=== PATIENT | male | born 1940 | race American Indian/Alaskan Native ===

== ENCOUNTER 2018-09-10 06:43 | Emergency (ER) | payer MEDICARE ==
[2018-09-10] MEDS ORDERED: NORCO 5/325 PO ONE (08:09)
--- NOTE | 2018-09-10 08:09 | Emergency Department Report ---
ED General Adult HPI - General Chief complaint: Pain General Stated complaint: GENERAL PAIN Time Seen by Provider: 09/10/18 07:44 Source: patient, EMS Mode of arrival: Stretcher Limitations: Physical Limitation - History of Present Illness Initial comments: This is an 78-year-old man who is currently living in assisted living. He is nonambulatory. 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 He is not currently on anticoagulants. He does take sodium bicarbonate does not refer a history of renal failure. He is on medicine for hypertension and hyperlipidemia. He does not have a primary care doctor. He states he's received his medicines from the [facility] system chronically. He also states he's been previously in hospice but has discontinued that so he can get physical therapy. The reason the patient has come to the emergency department is he states "when it rains his arthritis flares up". He complains of diffuse aching involving his neck and upper and lower extremity joints. He states he used to play ball on concrete in [place] and that cause chronic arthritis. Other than aspirin it does not appear that he is taking any chronic arthritis medication currently. He has had symptoms for the last several days and they are typical and recurrent in nature. -: Gradual, year(s) Location: neck, upper extremity, lower extremity Radiation: non-radiation Quality: aching Consistency: intermittent Improves with: none Worsens with: other ("the rain coming") Associated Symptoms: denies other symptoms Treatments Prior to Arrival: none - Related Data Allergies Allergy/AdvReac Type Severity Reaction Status Date / Time No Known Allergies Allergy Unverified 09/10/18 06:49 ED Review of Systems ROS: Stated complaint: GENERAL PAIN Other details as noted in HPI Constitutional: denies: chills, fever Eyes: denies: eye pain, eye discharge, vision change ENT: denies: ear pain, throat pain Respiratory: denies: cough, shortness of breath, wheezing Cardiovascular: denies: chest pain, palpitations Endocrine: no symptoms reported Gastrointestinal: denies: abdominal pain, nausea, diarrhea Genitourinary: denies: urgency, dysuria Musculoskeletal: as per HPI, arthralgia, other (chronic leg swelling). denies: back pain, joint swelling Skin: denies: rash, lesions Neurological: denies: headache, weakness, paresthesias Psychiatric: denies: anxiety, depression Hematological/Lymphatic: denies: easy bleeding, easy bruising ED Past Medical Hx - Past Medical History Previous Medical History?: Yes Hx CVA: Yes Hx Arthritis: Yes - Surgical History Past Surgical History?: Yes Additional Surgical History: spinal fusion c1-c4 - Social History Smoking Status: Never Smoker Substance Use Type: None ED Physical Exam - General Limitations: Physical Limitation General appearance: obese - Head Head exam: Present: atraumatic, normocephalic - Eye Eye exam: Present: normal appearance. Absent: scleral icterus - ENT ENT exam: Present: mucous membranes moist - Neck Neck exam: Present: normal inspection. Absent: tenderness (no vertebral tenderness), meningismus - Respiratory Respiratory exam: Present: normal lung sounds bilaterally. Absent: respiratory distress - Cardiovascular Cardiovascular Exam: Present: regular rate, normal rhythm. Absent: systolic murmur, diastolic murmur, rubs, gallop - GI/Abdominal GI/Abdominal exam: Present: soft, normal bowel sounds. Absent: distended, tenderness, guarding, rebound, rigid - Rectal Rectal exam: Present: deferred - Extremities Exam Extremities exam: Present: other (both lower extremities are edematous.). Absent: full ROM (limited), calf tenderness (no richard calf tenderness) - Back Exam Back exam: Present: normal inspection - Neurological Exam Neurological exam: Present: alert, oriented X3, CN II-XII intact (nothing gross noted), motor sensory deficit, other (functional paraparesis) - Psychiatric Psychiatric exam: Present: normal affect, normal mood - Skin Skin exam: Present: warm, dry, intact, normal color. Absent: rash ED Course Vital Signs 09/10/18 09/10/18 09/10/18 07:03 07:15 07:30 Blood Pressure 169/90 169/90 163/86 O2 Sat by Pulse 97 97 94 Oximetry - Reevaluation(s) Reevaluation #1: She now confirms to me that he has and told in the past that he has chronic kidney disease. He states he feels better. He is appropriate for outpatient management. He will be given a gram of ceftriaxone now and electrolytes. He has been told to follow-up on his urine culture. He is referred to a php mysql web developer stallion manager as well as the master fire control technician. He will be given return criteria. The patient is already on chronic by car. Therefore I believe this is the case that he has chronic kidney disease. 09/10/18 10:46 09/10/18 10:51 ED Medical Decision Making - Lab Data Result diagrams: 09/10/18 08:08 09/10/18 08:08 Laboratory Results - last 24 hr 09/10/18 09/10/18 09/10/18 08:08 08:08 08:08 WBC 6.9 RBC 3.73 Hgb 11.7 L Hct 35.6 MCV 96 H MCH 32 MCHC 33 RDW 16.6 H Plt Count 266 Lymph % (Auto) 28.4 [place] % (Auto) 11.3 H Eos % (Auto) 3.1 Baso % (Auto) 1.0 Lymph # 2.0 [place] # 0.8 Eos # 0.2 Baso # 0.1 Seg Neutrophils % 56.2 Seg Neutrophils # 3.9 PT 14.9 INR 1.10 APTT 40.6 H Sodium 144 Potassium 3.1 L Chloride 102.8 Carbon Dioxide 25 Anion Gap 19 BUN 27 H Creatinine 2.2 H Estimated GFR 35 BUN/Creatinine Ratio 12 Glucose 125 H Calcium 9.0 Phosphorus 3.40 Magnesium 1.50 L Total Bilirubin Direct Bilirubin Indirect Bilirubin AST ALT Alkaline Phosphatase NT-Pro-B Natriuret Pep Total Protein Albumin Albumin/Globulin Ratio Urine Color Urine Turbidity Urine pH Ur Specific [place] Urine Protein Urine Glucose (UA) Urine Ketones Urine Blood Urine Nitrite Urine Bilirubin Urine Urobilinogen Ur Leukocyte Esterase Urine WBC (Auto) Urine RBC (Auto) U Epithel Cells (Auto) Urine Bacteria (Auto) Urine Mucus 09/10/18 09/10/18 08:08 09:02 WBC RBC Hgb Hct MCV MCH MCHC RDW Plt Count Lymph % (Auto) [place] % (Auto) Eos % (Auto) Baso % (Auto) Lymph # [place] # Eos # Baso # Seg Neutrophils % Seg Neutrophils # PT INR APTT Sodium Potassium Chloride Carbon Dioxide Anion Gap BUN Creatinine Estimated GFR BUN/Creatinine Ratio Glucose Calcium Phosphorus Magnesium 1.50 L Total Bilirubin 0.50 Direct Bilirubin < 0.2 Indirect Bilirubin 0.3 AST 17 ALT 18 Alkaline Phosphatase 98 NT-Pro-B Natriuret Pep 786.0 Total Protein 7.0 Albumin 2.9 L Albumin/Globulin Ratio 0.7 Urine Color Yellow Urine Turbidity Clear Urine pH 5.0 Ur Specific [place] 1.010 Urine Protein <15 mg/dl Urine Glucose (UA) Neg Urine Ketones Neg Urine Blood Sm Urine Nitrite Pos Urine Bilirubin Neg Urine Urobilinogen < 2.0 Ur Leukocyte Esterase Mod Urine WBC (Auto) 47.0 H Urine RBC (Auto) 3.0 U Epithel Cells (Auto) < 1.0 Urine Bacteria (Auto) 2+ Urine Mucus Few Critical care attestation.: If time is entered above; I have spent that time in minutes in the direct care of this critically ill patient, excluding procedure time. ED Disposition Clinical Impression: Hypokalemia, Hypomagnesemia UTI (urinary tract infection) Qualifiers: Urinary tract infection type: site unspecified Hematuria presence: without hematuria Qualified Code(s): N39.0 - Urinary tract infection, site not specified Chronic kidney disease Qualifiers: Chronic kidney disease stage: stage 3 (moderate) Qualified Code(s): N18.3 - Chronic kidney disease, stage 3 (moderate) Arthralgia Qualifiers: Joint pain location: unspecified Qualified Code(s): M25.50 - Pain in unspecified joint Disposition: DC- TO HOME OR SELFCARE Is pt being admited?: No Does the pt Need Aspirin: No Condition: Stable Instructions: Urinary Tract Infection in Men (ED), Chronic Kidney Disease (ED), Arthralgia (ED) Additional Instructions: Patient requires follow-up on his urine culture test within the next 2-3 days. He requires follow-up on his chronic kidney disease with the php mysql web developer Dr. andersen. He requires primary care follow-up. His potassium and magnesium level were somewhat low. They will require recheck. He should return to the emergency department should he have any fever or chills. His temperature should be monitored. He is given a prescription for an antibiotic and something for pain as needed. Referrals: KERRI HANKS MD [Primary Care Provider] - 3-5 Days JAJA MARSH MD [Staff Physician] - 2-3 Days SAMREEN MANDEL DO [Staff Physician] - 2-3 Days
[2018-09-10 08:20] LABS: Basophils # (Auto) 0.1 K/mm3 (0.0-0.1); Eosinophils # (Auto) 0.2 K/mm3 (0.0-0.4); Eosinophils % (Auto) 3.1 % (0.0-4.3); Hematocrit 35.6 % (35.5-45.6); Hemoglobin 11.7 gm/dl (11.8-15.2); Lymphocytes % (Auto) 28.4 % (13.4-35.0); Mean Corpuscular HGB Conc 33 % (32-34); Mean Corpuscular Volume 96 fl (84-94); Monocytes # (Auto) 0.8 K/mm3 (0.0-0.8); Monocytes % (Auto) 11.3 % (0.0-7.3); Platelet Count 266 K/mm3 (140-440); Red Blood Count 3.73 M/mm3 (3.65-5.03); Red Cell Distribution Width 16.6 % (13.2-15.2)
[2018-09-10 08:48] LABS: Alanine Aminotransferase 18 units/L (7-56); Albumin 2.9 g/dL (3.9-5)
[2018-09-10 08:55] LABS: Bilirubin,Direct < 0.2 mg/dL (0-0.2)
[2018-09-10 09:08] LABS: INR 1.1 (0.87-1.13); Partial Thromboplastin Time 40.6 Sec. (24.2-36.6)
[2018-09-10 09:25] LABS: Bacteria,Urine 2+ /HPF (Negative); Bilirubin,Urine NEG (Negative); Blood,Urine SM (Negative); Color,Urine Yellow (Yellow); Mucus,Urine FEW /HPF; Protein,Urine <15 mg/dL mg/dL (Negative); Urobilinogen,Urine < 2.0 mg/dL (<2.0)
[2018-09-10] MEDS ORDERED: ROCEPHIN/NS 1 GM/50 ML 1 GM/50 ML BAG IV ONE (10:35)
[2018-09-10] MEDS ORDERED: K-DUR PO ONE (10:36)
[2018-09-10] MEDS ORDERED: XYLOCAINE 1% MPF 5 mL INFILTRATI ONE (11:05)
[2018-09-10] MEDS ORDERED: ROCEPHIN IM ONE (11:05)
--- NOTE | 2018-09-10 11:18 | Vascular Lab Report ---
PROCEDURE: VL VENOUS DUPLEX LE BILAT TECHNIQUE: Duplex Doppler ultrasound examination of the venous system of the right leg and left leg HISTORY: leg pain h/o prior DVT COMPARISONS: None FINDINGS: RIGHT LEG: Normal compressibility, vascular patency, and augmentation are present diffusely throughout the visua lized portion of the deep veins. No abnormal intraluminal echoes are visualized to suggest deep vein thrombus. IMPRESSION: No ultrasound evidence of DVT in the right leg LEFT LEG: Normal compressibility, vascular patency, and augmentation are present diffusely throughout the visua lized portion of the deep veins. No abnormal intraluminal echoes are visualized to suggest deep vein thrombus. IMPRESSION: No ultrasound evidence of DVT in the left leg This document is electronically signed by Jose Antonio Garcia MD., September 10 2018 11:15:49 AM ET
[2018-09-10] MEDS ORDERED: XYLOCAINE 2% INFILTRATI ONE (11:36)
[2018-09-10] MEDS: MAG-OX PO SCH ×2 (11:57→13:14)
[2018-09-10 13:48] VITALS: BP 170/79
[2018-09-11] MEDS ORDERED: MAG-OX PO ONE (10:37)
== END 2018-09-10 13:59 | disposition home or self-care (01) ==
LOC: ED 06:43
DX: I12.9 Hypertensive chronic kidney disease with stage 1 through stage 4 chronic kidney disease, or unspecified chronic kidney disease (principal); N18.3 Chronic kidney disease, stage 3 (moderate); N39.0 Urinary tract infection, site not specified; E87.6 Hypokalemia; E83.42 Hypomagnesemia; M54.2 Cervicalgia; M79.10 Myalgia, unspecified site; E78.5 Hyperlipidemia, unspecified; M79.661 Pain in right lower leg; M79.662 Pain in left lower leg; Z86.718 Personal history of other venous thrombosis and embolism
CPT/HCPCS: 36415; 80048; 80076; 81001; 83735; 83880; 84100; 85025; 85610; 85730; 87076; 87086; 87186; 93970; 96372; 99285; J0696

== ENCOUNTER 2019-01-21 11:04 | Emergency (ER) | payer MEDICARE ==
[2019-01-21] MEDS ORDERED: ULTRAM PO ONE (11:35)
[2019-01-21 11:52] LABS: Basophils # (Auto) 0.1 K/mm3 (0.0-0.1); Basophils % (Auto) 1.1 % (0.0-1.8); Eosinophils # (Auto) 0.2 K/mm3 (0.0-0.4); Eosinophils % (Auto) 3.7 % (0.0-4.3); Hematocrit 35.2 % (35.5-45.6); Hemoglobin 11.3 gm/dl (11.8-15.2); Lymphocytes # (Auto) 2.4 K/mm3 (1.2-5.4); Lymphocytes % (Auto) 37.3 % (13.4-35.0); Mean Corpuscular HGB Conc 32 % (32-34); Mean Corpuscular Volume 93 fl (84-94); Monocytes # (Auto) 0.7 K/mm3 (0.0-0.8); Monocytes % (Auto) 10.2 % (0.0-7.3); Platelet Count 404 K/mm3 (140-440); Red Blood Count 3.77 M/mm3 (3.65-5.03); Red Cell Distribution Width 15.8 % (13.2-15.2)
--- NOTE | 2019-01-21 13:46 | Emergency Department Report ---
ED General Adult HPI - General Chief complaint: Pain General Stated complaint: SAYDA Time Seen by Provider: 01/21/19 11:26 Source: patient, EMS Mode of arrival: Stretcher Limitations: Physical Limitation - History of Present Illness Initial comments: Mr. Haq is an 78 yo male with hx of HTN, cervical injury s/p surgery, CKD, who presents with generalized body aches. "I don't feel well." Has "arthritis". I reviewed and are medication record. Prescriptions include gabapentin however it appears to morphine Percocet were recently discontinued as well as Ativan tramadol acetaminophen. PCP Dr. Watson -: Gradual Location: left, right, upper extremity, lower extremity Severity scale (0 -10): 3 Quality: aching Consistency: constant Improves with: none Worsens with: none Associated Symptoms: denies other symptoms, malaise - Related Data Home Medications Medication Instructions Recorded Confirmed Last Taken Baclofen [Lioresal] 10 mg PO BID 04/02/13 02/26/17 04/02/13 Previous Rx's Medication Instructions Recorded Last Taken Type Acetaminophen [Acetaminophen TAB] 650 mg PO Q4H PRN #1 tablet 02/28/17 Unknown Rx Aspirin [Aspirin BABY CHEW TAB] 81 mg PO DAILY #1 tab.chew 02/28/17 Unknown Rx DAPTOmycin 246 mg IV Q24H #1 vial 02/28/17 Unknown Rx Ferrous Sulfate [Feosol 325 MG tab] 325 mg PO QDAY #1 tablet 02/28/17 Unknown Rx Gabapentin [Neurontin] 300 mg PO Q8HR #1 capsule 02/28/17 Unknown Rx Ondansetron [Zofran INJ] 4 mg IV Q8H PRN #1 vial 02/28/17 Unknown Rx Znfrjmnphdvx-Yqfi-Xskojeqw,Iso 2.25 gm IV Q6HR #10 froz.piggy 02/28/17 Unknown Rx [Zosyn 2.25 gm/50 ml Galaxy Bag] Sodium Hypochlorite [Dakin's Half 1 applic TP Q12H PRN #1 bottle 02/28/17 Unknown Rx Strength] amLODIPine [Norvasc] 10 mg PO DAILY #1 tablet 02/28/17 Unknown Rx cefUROXime [Ceftin] 250 mg PO Q12H #20 tablet 09/10/18 Unknown Rx traMADol [Ultram] 50 mg PO Q6HR PRN #10 tablet 09/10/18 Unknown Rx Allergies Allergy/AdvReac Type Severity Reaction Status Date / Time diclofenac [Diclofenac] Allergy Rash Verified 10/05/18 08:11 ED Review of Systems ROS: Stated complaint: SAYDA Other details as noted in HPI Comment: All other systems reviewed and negative Constitutional: malaise. denies: fever Gastrointestinal: denies: abdominal pain, nausea, vomiting ED Past Medical Hx - Past Medical History Previous Medical History?: Yes Hx Hypertension: Yes Hx CVA: Yes Hx Diabetes: Yes Hx Renal Disease: Yes (chronic kidney disease) Hx Arthritis: Yes Additional medical history: spinal disorder - Surgical History Additional Surgical History: spinal fusion c1-c4 - Social History Smoking Status: Unknown if ever smoked Substance Use Type: None - Medications Home Medications: Home Medications Medication Instructions Recorded Confirmed Last Taken Type Baclofen [Lioresal] 10 mg PO BID 04/02/13 02/26/17 04/02/13 History Acetaminophen [Acetaminophen TAB] 650 mg PO Q4H PRN #1 tablet 02/28/17 Unknown Rx Aspirin [Aspirin BABY CHEW TAB] 81 mg PO DAILY #1 tab.chew 02/28/17 Unknown Rx DAPTOmycin 246 mg IV Q24H #1 vial 02/28/17 Unknown Rx Ferrous Sulfate [Feosol 325 MG tab] 325 mg PO QDAY #1 tablet 02/28/17 Unknown Rx Gabapentin [Neurontin] 300 mg PO Q8HR #1 capsule 02/28/17 Unknown Rx Ondansetron [Zofran INJ] 4 mg IV Q8H PRN #1 vial 02/28/17 Unknown Rx Eurrwluaawoy-Pjlr-Xioijcfp,Iso 2.25 gm IV Q6HR #10 froz.piggy 02/28/17 Unknown Rx [Zosyn 2.25 gm/50 ml Galaxy Bag] Sodium Hypochlorite [Dakin's Half 1 applic TP Q12H PRN #1 bottle 02/28/17 Unknown Rx Strength] amLODIPine [Norvasc] 10 mg PO DAILY #1 tablet 02/28/17 Unknown Rx cefUROXime [Ceftin] 250 mg PO Q12H #20 tablet 09/10/18 Unknown Rx traMADol [Ultram] 50 mg PO Q6HR PRN #10 tablet 09/10/18 Unknown Rx ED Physical Exam - General Limitations: Physical Limitation General appearance: alert, in no apparent distress - Head Head exam: Present: atraumatic, normocephalic - Eye Eye exam: Present: normal appearance - ENT ENT exam: Present: mucous membranes moist - Neck Neck exam: Present: normal inspection - Respiratory Respiratory exam: Present: normal lung sounds bilaterally. Absent: respiratory distress, wheezes, rhonchi - Cardiovascular Cardiovascular Exam: Present: regular rate, normal rhythm, normal heart sounds. Absent: systolic murmur, diastolic murmur, rubs, gallop - GI/Abdominal GI/Abdominal exam: Present: soft, normal bowel sounds. Absent: distended, tenderness, guarding, rebound - Rectal Rectal exam: Present: deferred - Neurological Exam Neurological exam: Present: alert, oriented X3 - Psychiatric Psychiatric exam: Present: normal mood, flat affect - Skin Skin exam: Present: warm, dry, intact, normal color. Absent: rash ED Course Vital Signs 01/21/19 01/21/19 01/21/19 11:19 11:21 12:52 Temperature 98.0 F Pulse Rate 70 69 Respiratory 18 18 18 Rate Blood Pressure 156/69 Blood Pressure 142/72 [Left] O2 Sat by Pulse 96 92 Oximetry ED Medical Decision Making - Lab Data Result diagrams: 01/21/19 11:37 01/21/19 11:37 - Medical Decision Making Mr. Self presents with generalized pain. According to the medication list he has been on extensive list of medications which would address pain such as morphine tramadol Tylenol Percocet. He will need long-term pain management. I encouraged close follow-up with his primary care physician. Labs reviewed included hypochloremia hypokalemia CKD. I have encouraged increased potassium dose from 20 mEq to 40 meq daily while on diuretic therapy. Critical care attestation.: If time is entered above; I have spent that time in minutes in the direct care of this critically ill patient, excluding procedure time. ED Disposition Clinical Impression: Generalized pain, Hypokalemia Disposition: -01 TO HOME OR SELFCARE Is pt being admited?: No Does the pt Need Aspirin: No Condition: Stable Additional Instructions: Please contact primary care for pain treatment options. Your potassium level is lower than expected, we have increased your daily potassium dose. Referrals: PRIMARY CARE, [Primary Care Provider] - 3-5 Days
[2019-01-21] MEDS ORDERED: K-DUR PO ONE (13:50)
[2019-01-21 14:00] VITALS: BP 136/63
== END 2019-01-21 16:03 | disposition home or self-care (01) ==
LOC: ED 11:04
DX: M79.18 Myalgia, other site (principal); E87.6 Hypokalemia; M19.90 Unspecified osteoarthritis, unspecified site; E11.22 Type 2 diabetes mellitus with diabetic chronic kidney disease; I12.9 Hypertensive chronic kidney disease with stage 1 through stage 4 chronic kidney disease, or unspecified chronic kidney disease; N18.9 Chronic kidney disease, unspecified
CPT/HCPCS: 36415; 80048; 85025

== ENCOUNTER 2020-03-02 01:08 | Inpatient (IN) | payer MEDICARE ==
[2020-03-02] MEDS ORDERED: ACETAMINOPHEN 500 MG TAB PO ONE (01:29)
--- NOTE | 2020-03-02 01:30 | Emergency Department Report ---
ED General Adult HPI - General Chief complaint: Weakness Stated complaint: BODYACHE/SEPSIS PUI?: Yes Time Seen by Provider: 03/02/20 01:14 Source: patient, EMS (Verbal report received from emergency medical services), RN notes reviewed, old records reviewed Mode of arrival: Stretcher Limitations: Physical Limitation, Other (Patient is a poor historian) - History of Present Illness Initial comments: The patient was evaluated in the emergency department for symptoms described in the history of present illness. He/she was evaluated in the context of the global COVID-19 pandemic, which necessitated consideration that the patient might be at risk for infection with the virus that causes COVID-19. Institutional protocols and algorithms that pertain to the evaluation of patients at risk for COVID-19 are in a state of rapid change based on information released by regulatory bodies including the CDC and federal and state organizations. These policies and algorithms were followed during the patient's care in the emergency department. Please note that these policies, procedures and recommendations changed on a rapid basis. During the entire history and physical examination, I had on complete personal protective equipment. The patient is an 79-year-old gentleman. He is brought to the hospital by EMS from a local fpc, with a complaint of fever, weakness, body aches, change in behavior. Patient himself is awake and follows commands. The patient states he has body pain. The patient indicates he is not having headache, neck pain, chest pain or abdominal pain. The patient is a poor historian, and has difficulty describing the qualitative nature of his symptoms, exacerbating factors, or relieving factors. As per collateral history from EMS, patient febrile in the field, and borderline hypoxic. EMS reports otherwise unremarkable vital signs. Patient is not accompanied by friends or family or caretakers at this time for additional information or collateral information. His primary care doctors on the following: Dr. Rita Watson, Dr Virginia Soria ( [facility]) Past medical history includes obesity, hypertension, chronic lymphedema, elephantiasis, history of hypertension, bradycardia, hypernatremia, hyperchloremia, and renal insufficiency. -: unknown Radiation: other Quality: other Consistency: other Improves with: other Worsens with: other - Related Data Home Medications Medication Instructions Recorded Confirmed Last Taken Baclofen [Lioresal] 10 mg PO BID 04/02/13 02/26/17 04/02/13 Previous Rx's Medication Instructions Recorded Last Taken Type Acetaminophen [Acetaminophen TAB] 650 mg PO Q4H PRN #1 tablet 02/28/17 Unknown Rx Aspirin [Aspirin BABY CHEW TAB] 81 mg PO DAILY #1 tab.chew 02/28/17 Unknown Rx DAPTOmycin 246 mg IV Q24H #1 vial 02/28/17 Unknown Rx Ferrous Sulfate [Feosol 325 MG tab] 325 mg PO QDAY #1 tablet 02/28/17 Unknown Rx Gabapentin 300 mg PO Q8HR #1 capsule 02/28/17 Unknown Rx Ondansetron [Zofran INJ] 4 mg IV Q8H PRN #1 vial 02/28/17 Unknown Rx Phijiczpvmhe-Urfe-Fbbnukgr,Iso 2.25 gm IV Q6HR #10 froz.piggy 02/28/17 Unknown Rx [Zosyn 2.25 gm/50 ml Galaxy Bag] Sodium Hypochlorite [Dakin's Half 1 applic TP Q12H PRN #1 bottle 02/28/17 Unknown Rx Strength] amLODIPine 10 mg PO DAILY #1 tablet 02/28/17 Unknown Rx cefUROXime [Ceftin] 250 mg PO Q12H #20 tablet 09/10/18 Unknown Rx traMADoL [Ultram] 50 mg PO Q6HR PRN #10 tablet 09/10/18 Unknown Rx Potassium Chloride [K-Dur] 2 tab PO QDAY 30 Days #60 tablet 01/21/19 Unknown Rx Allergies Allergy/AdvReac Type Severity Reaction Status Date / Time diclofenac [Diclofenac] Allergy Rash Verified 10/05/18 08:11 ED Review of Systems ROS: Stated complaint: BODYACHE/SEPSIS Other details as noted in HPI Comment: Unobtainable due to pts medical conditions Constitutional: malaise Musculoskeletal: arthralgia, myalgia Neurological: weakness, confusion ED Past Medical Hx - Past Medical History Hx Hypertension: Yes Hx CVA: Yes Hx Diabetes: Yes Hx Renal Disease: Yes (chronic kidney disease) Hx Arthritis: Yes Additional medical history: spinal disorder - Surgical History Additional Surgical History: spinal fusion c1-c4 - Social History Smoking Status: Unknown if ever smoked Substance Use Type: None - Medications Home Medications: Home Medications Medication Instructions Recorded Confirmed Last Taken Type Baclofen [Lioresal] 10 mg PO BID 04/02/13 02/26/17 04/02/13 History Acetaminophen [Acetaminophen TAB] 650 mg PO Q4H PRN #1 tablet 02/28/17 Unknown Rx Aspirin [Aspirin BABY CHEW TAB] 81 mg PO DAILY #1 tab.chew 02/28/17 Unknown Rx DAPTOmycin 246 mg IV Q24H #1 vial 02/28/17 Unknown Rx Ferrous Sulfate [Feosol 325 MG tab] 325 mg PO QDAY #1 tablet 02/28/17 Unknown Rx Gabapentin 300 mg PO Q8HR #1 capsule 02/28/17 Unknown Rx Ondansetron [Zofran INJ] 4 mg IV Q8H PRN #1 vial 02/28/17 Unknown Rx Dikldpvhhsgw-Dowv-Rgkjtmvt,Iso 2.25 gm IV Q6HR #10 froz.piggy 02/28/17 Unknown Rx [Zosyn 2.25 gm/50 ml Galaxy Bag] Sodium Hypochlorite [Dakin's Half 1 applic TP Q12H PRN #1 bottle 02/28/17 Unknown Rx Strength] amLODIPine 10 mg PO DAILY #1 tablet 02/28/17 Unknown Rx cefUROXime [Ceftin] 250 mg PO Q12H #20 tablet 09/10/18 Unknown Rx traMADoL [Ultram] 50 mg PO Q6HR PRN #10 tablet 09/10/18 Unknown Rx Potassium Chloride [K-Dur] 2 tab PO QDAY 30 Days #60 tablet 01/21/19 Unknown Rx ED Physical Exam - General Limitations: Altered Mental Status, Physical Limitation General appearance: in no apparent distress, anxious, obese - Head Head exam: Present: atraumatic, normocephalic - Eye Eye exam: Present: normal appearance, EOMI - ENT ENT exam: Present: normal exam, normal orophraynx, mucous membranes moist, normal external ear exam - Neck Neck exam: Present: normal inspection, full ROM. Absent: tenderness, meningismus - Respiratory Respiratory exam: Present: decreased breath sounds. Absent: respiratory distress, wheezes, rales, rhonchi, stridor - Cardiovascular Cardiovascular Exam: Present: normal rhythm, tachycardia, systolic murmur (2 out of 6 systolic murmur, heard best at the right and left second intercostal spaces). Absent: bradycardia, irregular rhythm, diastolic murmur, rubs, gallop - GI/Abdominal GI/Abdominal exam: Present: soft. Absent: distended, tenderness, guarding, rebound, rigid, pulsatile mass - Rectal Rectal exam: Present: normal inspection (Stage I sacral ulcer/skin breakdown noted.) - Extremities Exam Extremities exam: Present: normal inspection, full ROM, pedal edema (2 to 3+ edema noted in the bilateral lower extremities), other (2+ pulses noted in the bilateral upper and lower extremities. There is no palpable cord. negative Homans sign. Muscular compartments are soft. The pelvis is stable.) - Back Exam Back exam: Present: normal inspection. Absent: tenderness, CVA tenderness (R), CVA tenderness (L), paraspinal tenderness, vertebral tenderness - Neurological Exam Neurological exam: Present: altered (The patient is awake to name. The patient follows commands. There are no meningeal signs.), other (No facial droop. Tongue midline. Extraocular movements intact bilaterally. Facial sensation intact to light touch in V1, V2, V3 distribution bilaterally. 5 and a 5 strength in 4 extremities. Sensation intact to light touch in 4 extremities.) - Psychiatric Psychiatric exam: Present: agitated - Skin Skin exam: Present: warm, dry, intact, normal color. Absent: rash ED Course Vital Signs 03/02/20 03/02/20 03/02/20 01:28 02:01 02:15 Temperature 102.5 F H Pulse Rate 116 H 107 H 99 H Respiratory 17 22 18 Rate Blood Pressure Blood Pressure 189/97 [Right] O2 Sat by Pulse 97 97 97 Oximetry 03/02/20 03/02/20 03/02/20 02:31 02:42 02:45 Temperature Pulse Rate 96 H 102 H 95 H Respiratory 23 19 17 Rate Blood Pressure 148/85 Blood Pressure 148/85 [Right] O2 Sat by Pulse 99 98 100 Oximetry 03/02/20 03/02/20 03/02/20 03:00 03:15 03:30 Temperature Pulse Rate 99 H 86 84 Respiratory 15 13 16 Rate Blood Pressure 140/86 140/86 145/71 Blood Pressure [Right] O2 Sat by Pulse 99 100 100 Oximetry 03/02/20 03/02/20 03:41 03:45 Temperature Pulse Rate 94 H 88 Respiratory 22 Rate Blood Pressure 145/71 Blood Pressure [Right] O2 Sat by Pulse 98 Oximetry - Reevaluation(s) Reevaluation #1: 03/02/20 02:27 Differential diagnosis, including but not limited to: Bacteremia, viremia, pneumonia, COVID-19 Urinary tract infection Acute febrile delirium Assessment and plan: 79-year-old gentleman with fever, tachycardia, body aches, who is awake, follows commands, without meningeal signs, patient we resuscitated empirically according to the sepsis pathway, he will be given IV fluids, dosed at 30 cc/kg of ideal body weight, ceftriaxone ordered empirically, appropriate laboratory studies ordered, urinalysis pending at this time, he will be placed on isolation precautions to rule out COVID-19. He will require admission to the medical service once his initial diagnostics have resulted. 03/02/20 03:19 Laboratory studies are reviewed and appreciated. We will replete hypokalemia and hypomagnesemia. Patient ruling in for Sirs/sepsis, manifested by fever, tachycardia, leukocytosis. Urinalysis pending at this time. Dr Darrin Rosales to admit ED Medical Decision Making - Lab Data Result diagrams: 03/02/20 01:52 03/02/20 01:52 Vital Signs 03/02/20 01:28 Temperature 102.5 F H Pulse Rate 116 H Respiratory 20 Rate Blood Pressure 189/97 [Right] O2 Sat by Pulse 97 Oximetry Lab Results 03/02/20 03/02/20 03/02/20 Range/Units 01:52 01:52 01:52 WBC 14.4 H (4.5-11.0) K/mm3 RBC 3.53 L (3.65-5.03) M/mm3 Hgb 10.7 L (11.8-15.2) gm/dl Hct 33.6 L (35.5-45.6) % MCV 95 H (84-94) fl MCH 30 (28-32) pg MCHC 32 (32-34) % RDW 16.6 H (13.2-15.2) % Plt Count 467 H (140-440) K/mm3 Seg Neutrophils % Health Assessment And Treatment Teacher APTT 34.9 (24.2-36.6) Sec. Sodium 144 (137-145) mmol/L Potassium 2.8 L* (3.6-5.0) mmol/L Chloride 102.6 (98-107) mmol/L Carbon Dioxide 20 L (22-30) mmol/L Anion Gap 24 mmol/L BUN 59 H (9-20) mg/dL Creatinine 2.3 H (0.8-1.3) mg/dL Estimated GFR 33 ml/min BUN/Creatinine Ratio 26 % Glucose 123 H (75-100) mg/dL Lactic Acid (0.7-2.0) mmol/L Calcium 8.8 (8.4-10.2) mg/dL Magnesium (1.7-2.3) mg/dL Total Bilirubin 0.70 (0.1-1.2) mg/dL AST 25 (5-40) units/L ALT 14 (7-56) units/L Alkaline Phosphatase 144 H (35-129) units/L Total Creatine Kinase (55-170) units/L Total Protein 7.2 (6.3-8.2) g/dL Albumin 3.2 L (3.9-5) g/dL Albumin/Globulin Ratio 0.8 % TSH (0.270-4.200) mlU/mL 03/02/20 03/02/20 03/02/20 Range/Units 01:52 01:52 01:52 WBC (4.5-11.0) K/mm3 RBC (3.65-5.03) M/mm3 Hgb (11.8-15.2) gm/dl Hct (35.5-45.6) % MCV (84-94) fl MCH (28-32) pg MCHC (32-34) % RDW (13.2-15.2) % Plt Count (140-440) K/mm3 Seg Neutrophils % APTT (24.2-36.6) Sec. Sodium (137-145) mmol/L Potassium (3.6-5.0) mmol/L Chloride (98-107) mmol/L Carbon Dioxide (22-30) mmol/L Anion Gap mmol/L BUN (9-20) mg/dL Creatinine (0.8-1.3) mg/dL Estimated GFR ml/min BUN/Creatinine Ratio % Glucose 124 H (75-100) mg/dL Lactic Acid 2.70 H* (0.7-2.0) mmol/L Calcium (8.4-10.2) mg/dL Magnesium 1.40 L (1.7-2.3) mg/dL Total Bilirubin (0.1-1.2) mg/dL AST (5-40) units/L ALT (7-56) units/L Alkaline Phosphatase (35-129) units/L Total Creatine Kinase 34 L (55-170) units/L Total Protein (6.3-8.2) g/dL Albumin (3.9-5) g/dL Albumin/Globulin Ratio % TSH (0.270-4.200) mlU/mL 03/02/20 Range/Units 01:52 WBC (4.5-11.0) K/mm3 RBC (3.65-5.03) M/mm3 Hgb (11.8-15.2) gm/dl Hct (35.5-45.6) % MCV (84-94) fl MCH (28-32) pg MCHC (32-34) % RDW (13.2-15.2) % Plt Count (140-440) K/mm3 Seg Neutrophils % APTT (24.2-36.6) Sec. Sodium (137-145) mmol/L Potassium (3.6-5.0) mmol/L Chloride (98-107) mmol/L Carbon Dioxide (22-30) mmol/L Anion Gap mmol/L BUN (9-20) mg/dL Creatinine (0.8-1.3) mg/dL Estimated GFR ml/min BUN/Creatinine Ratio % Glucose (75-100) mg/dL Lactic Acid (0.7-2.0) mmol/L Calcium (8.4-10.2) mg/dL Magnesium (1.7-2.3) mg/dL Total Bilirubin (0.1-1.2) mg/dL AST (5-40) units/L ALT (7-56) units/L Alkaline Phosphatase (35-129) units/L Total Creatine Kinase (55-170) units/L Total Protein (6.3-8.2) g/dL Albumin (3.9-5) g/dL Albumin/Globulin Ratio % TSH 0.885 (0.270-4.200) mlU/mL - EKG Data -: EKG Interpreted by Md EKG shows normal: sinus rhythm - EKG Data When compared to previous EKG there are: previous EKG unavailable 03/02/20 03:21 Sinus rhythm, 95 bpm, premature ventricular complex, right bundle branch block, prolonged [place] interval, motion artifact, extreme rightward axis deviation, abnormal EKG, not a STEMI. - Radiology Data Radiology results: report reviewed, image reviewed Print Report Referring Physician: HUONG WHITFIELD Patient Name: URSZULA YUAN Date of : 1940 Sex: Male Report Date: 2020-03-02 Report Status: Finalized Findings [facility] [address] [place] [address] XRay Report Signed Patient: URSZULA YUAN MR#: [id number] : 1940 Acct:[id number] Age/Sex: 79 / M ADM Date: 03/02/20 Loc: ED Attending Dr: Ordering Physician: HUONG WHITFIELD MD Date of Service: 03/02/20 Procedure(s): XR chest 1V ap Accession Number(s): [id number] cc: HUONG WHITFIELD MD Fluoro Time In Minutes: CHEST 1 VIEW INDICATION: fever weakness resp distress. COMPARISON: None. FINDINGS: Support devices: None. Heart: Cardiac silhouette size is accentuated by low lung volumes. Lungs/Pleura: There are low lung volumes with presumed atelectatic changes in the bases. No significant effusion, no pneumothorax. IMPRESSION: 1. No acute findings. Signer Name: Ronan Rouse MD Signed: 03/02/2020 1:58 AM Workstation Name: [id number] Transcribed By: BRAD Dictated By: Ronan Rouse MD Electronically Authenticated By: Ronan Rouse MD Signed Date/Time: 03/02/20157 DD/ 7 TD/TT: Critical Care Time: Yes Critical care time in (mins) excluding proc time.: 35 Critical care attestation.: If time is entered above; I have spent that time in minutes in the direct care of this critically ill patient, excluding procedure time. ED Disposition Clinical Impression: SIRS (systemic inflammatory response syndrome), Suspected 2019 novel coronavirus infection, Renal insufficiency, Hypokalemia, Hypomagnesemia, UTI (urinary tract infection) Disposition: OP ADMIT IP TO THIS HOSP Is pt being admited?: Yes Does the pt Need Aspirin: No Condition: Fair
[2020-03-02] MEDS ORDERED: SODIUM CHLORIDE 0.9% 1000 ML 1,000 ML ONE (01:50)
[2020-03-02] MEDS ORDERED: SODIUM CHLORIDE 0.9% IV ONE (01:52)
[2020-03-02] MEDS ORDERED: cefTRIAXone/NS 2 GM/100 ML 2 GM/100 ML BAG IV SCH (02:00)
--- NOTE | 2020-03-02 02:03 | XRay Report ---
CHEST 1 VIEW INDICATION: fever weakness resp distress. COMPARISON: None. FINDINGS: Support devices: None. Heart: Cardiac silhouette size is accentuated by low lung volumes. Lungs/Pleura: There are low lung volumes with presumed atelectatic changes in the bases. No significa nt effusion, no pneumothorax. IMPRESSION: 1. No acute findings. Signer Name: Ronan Rouse MD Signed: 03/02/2020 1:58 AM Workstation Name: [id number]
[2020-03-02] MEDS ORDERED: cefTRIAXone/NS 2 GM/100 ML 2 GM/100 ML BAG IV ONE (02:35)
[2020-03-02 02:36] LABS: Hematocrit 33.6 % (35.5-45.6); Hemoglobin 10.7 gm/dl (11.8-15.2); Mean Corpuscular HGB Conc 32 % (32-34); Mean Corpuscular Volume 95 fl (84-94); Platelet Count 467 K/mm3 (140-440); Red Blood Count 3.53 M/mm3 (3.65-5.03); Red Cell Distribution Width 16.6 % (13.2-15.2)
[2020-03-02 02:55] LABS: Albumin 3.2 g/dL (3.9-5); Calcium 8.8 mg/dL (8.4-10.2)
[2020-03-02] MEDS ORDERED: POTASSIUM CHLORIDE ER 20 MEQ TAB PO ONE ×3 (03:17→15:00)
[2020-03-02] MEDS ORDERED: MAGNESIUM SULFATE 2 GM/50 ML BAG IV ONE ×2 (03:17→04:26)
[2020-03-02] MEDS ORDERED: MAGNESIUM HYDROXIDE (MOM) ORAL LIQD UDC PO PRN (03:40)
[2020-03-02] MEDS ORDERED: ONDANSETRON 4 MG/2 ML INJ IV PRN (03:40)
[2020-03-02] MEDS ORDERED: DEXTROSE 50% IN WATER (25GM) 50 ML SYRINGE IV PRN (03:40)
[2020-03-02] MEDS ORDERED: MORPHINE 2 MG/1 ML INJ IV PRN (03:40)
[2020-03-02] MEDS ORDERED: ACETAMINOPHEN 325 MG TAB PO PRN (03:40)
--- NOTE | 2020-03-02 03:54 | History and Physical Report ---
History of Present Illness Date of examination: 03/02/20 Date of admission: 03/02/20 03:20 Chief complaint: Weakness Generalized body aches/pain Fever History of present illness: 79-year-old -[place] male with significant past medical history of chronic kidney disease, CVA in the past, diabetes mellitus, hypertension, obesity and chronic lymphedema brought into the emergency room from a local skilled nursing by EMS with complaints of fever, generalized weakness, body aches and pain and confusion. Per EMS patient was said to be hypoxic in the field and also had a fever. Patient is a poor historian however he was able to answer a few questions. He appeared more alert and oriented upon arrival in the emergency room. Work-up in the emergency room however reveals leukocytosis of 14, lactic acidosis, hypomagnesemia and hypokalemia, urinalysis was significant for UTI . Chest x-ray showed low lung volumes with presumed atelectatic changes in the bases. Patient is being admitted for sepsis possibly secondary to the UTI versus underlying pneumonia on chest x-ray. Patient is also to be worked up for possible COVID-19 and therefore placed on isolation precautions. 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,) Past Surgical History: Other (Spinal fusion C1-C4) Social history: no significant social history Family history: no significant family history Medications and Allergies Allergies Allergy/AdvReac Type Severity Reaction Status Date / Time diclofenac [Diclofenac] Allergy Rash Verified 10/05/18 08:11 Home Medications Medication Instructions Recorded Confirmed Last Taken Type Baclofen [Lioresal] 10 mg PO BID 04/02/13 02/26/17 04/02/13 History Acetaminophen [Acetaminophen TAB] 650 mg PO Q4H PRN #1 tablet 02/28/17 Unknown Rx Aspirin [Aspirin BABY CHEW TAB] 81 mg PO DAILY #1 tab.chew 02/28/17 Unknown Rx DAPTOmycin 246 mg IV Q24H #1 vial 02/28/17 Unknown Rx Ferrous Sulfate [Feosol 325 MG tab] 325 mg PO QDAY #1 tablet 02/28/17 Unknown Rx Gabapentin 300 mg PO Q8HR #1 capsule 02/28/17 Unknown Rx Ondansetron [Zofran INJ] 4 mg IV Q8H PRN #1 vial 02/28/17 Unknown Rx Cqhsgkfwllym-Rznl-Evrnvggq,Iso 2.25 gm IV Q6HR #10 froz.piggy 02/28/17 Unknown Rx [Zosyn 2.25 gm/50 ml Galaxy Bag] Sodium Hypochlorite [Dakin's Half 1 applic TP Q12H PRN #1 bottle 02/28/17 Unknown Rx Strength] amLODIPine 10 mg PO DAILY #1 tablet 02/28/17 Unknown Rx cefUROXime [Ceftin] 250 mg PO Q12H #20 tablet 09/10/18 Unknown Rx traMADoL [Ultram] 50 mg PO Q6HR PRN #10 tablet 09/10/18 Unknown Rx Potassium Chloride [K-Dur] 2 tab PO QDAY 30 Days #60 tablet 01/21/19 Unknown Rx Active Meds: Active Medications Acetaminophen (Tylenol) 650 mg PO Q4H PRN PRN Reason: Pain MILD(1-3)/Fever >100.5/HUTCHINS Dextrose (D50w (25gm) Syringe) 50 ml IV Q30MIN PRN; Protocol PRN Reason: Hypoglycemia Sodium Chloride (Nacl 0.9% 1000 Ml) 2,040 mls @ 999 mls/hr IV BOLUS ONE Stop: 03/02/20 03:54 Last Admin: 03/02/20 01:55 Dose: 999 mls/hr Documented by: Potassium Chloride (Kcl 10meq/100ml) 10 meq in 100 mls @ 100 mls/hr IV Q1H IDRIS Stop: 03/02/20 05:59 Insulin Human Lispro (Humalog) 0 unit SUB-Q ACHS IDRIS; Protocol Magnesium Hydroxide (Milk Of Magnesia) 30 ml PO Q4H PRN PRN Reason: Constipation Morphine Sulfate (Morphine) 2 mg IV Q4H PRN PRN Reason: Pain, Moderate (4-6) Ondansetron HCl (Zofran) 4 mg IV Q8H PRN PRN Reason: Nausea And Vomiting Sodium Chloride (Sodium Chloride Flush Syringe 10 Ml) 10 ml IV BID IDRIS Sodium Chloride (Sodium Chloride Flush Syringe 10 Ml) 10 ml IV PRN PRN PRN Reason: LINE FLUSH Review of Systems Constitutional: fever, fatigue, weakness, malaise Ears, nose, mouth and throat: no nasal congestion, no sore throat Cardiovascular: no chest pain, no palpitations Respiratory: no cough, no shortness of breath Gastrointestinal: no abdominal pain, no nausea, no vomiting, no diarrhea Genitourinary Male: no dysuria, no hematuria, no flank pain Musculoskeletal: no neck pain, no low back pain Integumentary: no rash, no pruritis Neurological: confusion, no headaches Psychiatric: no anxiety, no depression Exam - Constitutional Vitals: Temp Pulse Resp BP Pulse Ox 102.5 F H 102 H 19 148/85 98 03/02/20 01:28 03/02/20 02:42 03/02/20 02:42 03/02/20 02:42 03/02/20 02:42 General appearance: Present: no acute distress, well-nourished, obese - EENT Eyes: Present: PERRL, EOM intact. Absent: scleral icterus ENT: hearing intact, clear oral mucosa, dentition normal - Neck Neck: Present: supple, normal ROM - Respiratory Respiratory effort: normal Respiratory: bilateral: diminished - Cardiovascular Rhythm: regular Heart Sounds: Present: S1 & S2. Absent: gallop, systolic murmur, diastolic murmur, rub - Extremities Extremities: no ischemia, pulses intact, pulses symmetrical, Full ROM Extremity abnormal: edema (lymphedema/3+ suly. lower extremity edema) Peripheral Pulses: within normal limits - Abdominal General gastrointestinal: Present: soft, non-tender, non-distended, normal bowel sounds. Absent: mass - Integumentary Integumentary: Present: clear, warm, dry. Absent: rash - Musculoskeletal Musculoskeletal: strength equal bilaterally - Psychiatric Psychiatric: appropriate mood/affect, intact judgment & insight, memory intact, cooperative - Neurologic Neurologic: CNII-XII intact, no focal deficits, moves all extremities Results - Labs CBC & Chem 7: 03/02/20 01:52 03/02/20 01:52 Labs: Abnormal lab results 03/02/20 03/02/20 03/02/20 Range/Units 01:52 01:52 01:52 WBC 14.4 H (4.5-11.0) K/mm3 RBC 3.53 L (3.65-5.03) M/mm3 Hgb 10.7 L (11.8-15.2) gm/dl Hct 33.6 L (35.5-45.6) % MCV 95 H (84-94) fl RDW 16.6 H (13.2-15.2) % Plt Count 467 H (140-440) K/mm3 Potassium 2.8 L* (3.6-5.0) mmol/L Carbon Dioxide 20 L (22-30) mmol/L BUN 59 H (9-20) mg/dL Creatinine 2.3 H (0.8-1.3) mg/dL Glucose 123 H (75-100) mg/dL Lactic Acid 2.70 H* (0.7-2.0) mmol/L Magnesium (1.7-2.3) mg/dL Alkaline Phosphatase 144 H (35-129) units/L Total Creatine Kinase (55-170) units/L Albumin 3.2 L (3.9-5) g/dL 03/02/20 03/02/20 Range/Units 01:52 01:52 WBC (4.5-11.0) K/mm3 RBC (3.65-5.03) M/mm3 Hgb (11.8-15.2) gm/dl Hct (35.5-45.6) % MCV (84-94) fl RDW (13.2-15.2) % Plt Count (140-440) K/mm3 Potassium (3.6-5.0) mmol/L Carbon Dioxide (22-30) mmol/L BUN (9-20) mg/dL Creatinine (0.8-1.3) mg/dL Glucose 124 H (75-100) mg/dL Lactic Acid (0.7-2.0) mmol/L Magnesium 1.40 L (1.7-2.3) mg/dL Alkaline Phosphatase (35-129) units/L Total Creatine Kinase 34 L (55-170) units/L Albumin (3.9-5) g/dL Assessment and Plan - Patient Problems (1) Sepsis Current Visit: Yes Status: Acute Plan to address problem: Possibly secondary to UTI and possibly underlying pneumonia. Patient commenced on empiric IV antibiotics. We will await culture results. (2) Suspected 2019 novel coronavirus infection Current Visit: Yes Status: Acute Plan to address problem: We await COVID-19 testing. Consult has also been placed to infectious disease for evaluation and recommendation. Patient placed on isolation precautions. (3) Hypokalemia Current Visit: Yes Status: Acute Plan to address problem: Will replete potassium and monitor chemistry. (4) Hypomagnesemia Current Visit: Yes Status: Acute Plan to address problem: Will replete magnesium and monitor chemistry. (5) Renal insufficiency Current Visit: Yes Status: Acute Plan to address problem: Patient has known history of chronic kidney disease. We will monitor BUN and creatinine and also request nephrology evaluation prior to discharge. (6) Hypertension Current Visit: No Status: Acute Plan to address problem: We will resume routine home medications and monitor vital signs closely. (7) UTI (urinary tract infection) Current Visit: Yes Status: Acute Plan to address problem: Patient on empiric IV antibiotics. We will await urine culture results. (8) DVT prophylaxis Current Visit: Yes Status: Acute Plan to address problem: Patient placed on subcutaneous heparin. (9) Full code status Current Visit: Yes Status: Acute
[2020-03-02 04:04] LABS: Basophils % (Manual) 0 % (0.0-1.8); Eosinophils % (Manual) 0 % (0.0-4.3); Platelet Estimate Consistent w Auto; Total Cells Counted 100
[2020-03-02 04:07] LABS: Bacteria,Urine 4+ /HPF (Negative); Bilirubin,Urine NEG (Negative); Blood,Urine SM (Negative); Color,Urine Yellow (Yellow); Hyaline Casts,Urine 1 /LPF; Mucus,Urine FEW /HPF; Urobilinogen,Urine < 2.0 mg/dL (<2.0)
[2020-03-02 04:09] LABS: WBC,Urine > 182.0 /HPF (0.0-6.0)
[2020-03-02 04:31] LABS: C-Reactive Protein 2.2 mg/dL (0.00-1.30)
[2020-03-02] MEDS: INSULIN LISPRO 100 UNIT/ML VIAL 3 mL SUB-Q SCH ×4 (07:30→22:57)
--- NOTE | 2020-03-02 08:05 | Event Note ---
Date: 03/02/20 This is a follow-up from an admission earlier this morning. We will continue the plan as outlined in the H&P. Follow-up Covid testing. ID and nephrology consulted. Total time equals 35 minutes with greater than 50% spent on coordination of care and counseling.
--- NOTE | 2020-03-02 08:55 | Consultation ---
History of Present Illness - Reason for Consult Consult date: 03/02/20 acute renal failure, chronic renal failure - History of Present Illness 79-year-old male with significant past medical history of CKD stage III/IV, was admitted for fever, generalized weakness, body aches and pain and conf usion.Patient is a poor historian and distory obtained from chart in the ED he was found to have lactic acidosis, hypomagnesemia and hypokalemia, urinalysis was significant for UTI . Chest x-ray was negative for acute findings Patient is also to be worked up for possible COVID-19 and therefore placed on isolation precautions. 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,) Past Surgical History: Other (Spinal fusion C1-C4) Social history: no significant social history Family history: no significant family history Medications and Allergies Allergies Allergy/AdvReac Type Severity Reaction Status Date / Time diclofenac [Diclofenac] Allergy Rash Verified 10/05/18 08:11 Home Medications Medication Instructions Recorded Confirmed Last Taken Type Baclofen [Lioresal] 10 mg PO BID 04/02/13 03/02/20 04/02/13 History Acetaminophen [Acetaminophen TAB] 650 mg PO Q4H PRN #1 tablet 02/28/17 03/02/20 Unknown Rx Aspirin [Aspirin BABY CHEW TAB] 81 mg PO DAILY #1 tab.chew 02/28/17 03/02/20 Unknown Rx DAPTOmycin 246 mg IV Q24H #1 vial 02/28/17 03/02/20 Unknown Rx Ferrous Sulfate [Feosol 325 MG tab] 325 mg PO QDAY #1 tablet 02/28/17 03/02/20 Unknown Rx Gabapentin 300 mg PO Q8HR #1 capsule 02/28/17 03/02/20 Unknown Rx Ondansetron [Zofran INJ] 4 mg IV Q8H PRN #1 vial 02/28/17 03/02/20 Unknown Rx Tkqyyfbpjyhz-Paqm-Jywzzbnt,Iso 2.25 gm IV Q6HR #10 froz.piggy 02/28/17 03/02/20 Unknown Rx [Zosyn 2.25 gm/50 ml Galaxy Bag] Sodium Hypochlorite [Dakin's Half 1 applic TP Q12H PRN #1 bottle 02/28/17 03/02/20 Unknown Rx Strength] amLODIPine 10 mg PO DAILY #1 tablet 02/28/17 03/02/20 Unknown Rx cefUROXime [Ceftin] 250 mg PO Q12H #20 tablet 09/10/18 03/02/20 Unknown Rx traMADoL [Ultram] 50 mg PO Q6HR PRN #10 tablet 09/10/18 03/02/20 Unknown Rx Potassium Chloride [K-Dur] 2 tab PO QDAY 30 Days #60 tablet 01/21/19 03/02/20 Unknown Rx Active Meds: Active Medications Acetaminophen (Tylenol) 650 mg PO Q4H PRN PRN Reason: Pain MILD(1-3)/Fever >100.5/HUTCHINS Dextrose (D50w (25gm) Syringe) 50 ml IV Q30MIN PRN; Protocol PRN Reason: Hypoglycemia Ceftriaxone Sodium (Rocephin/Ns 1 Gm/50 Ml) 1 gm in 50 mls @ 100 mls/hr IV Q24H IDRIS; Protocol Lactated Ringer's (Lactated Ringers) 1,000 mls @ 125 mls/hr IV DIRECT IDRIS Insulin Human Lispro (Humalog) 0 unit SUB-Q ACHS IDRIS; Protocol Magnesium Hydroxide (Milk Of Magnesia) 30 ml PO Q4H PRN PRN Reason: Constipation Morphine Sulfate (Morphine) 2 mg IV Q4H PRN PRN Reason: Pain, Moderate (4-6) Ondansetron HCl (Zofran) 4 mg IV Q8H PRN PRN Reason: Nausea And Vomiting Sodium Chloride (Sodium Chloride Flush Syringe 10 Ml) 10 ml IV BID IDRIS Sodium Chloride (Sodium Chloride Flush Syringe 10 Ml) 10 ml IV PRN PRN PRN Reason: LINE FLUSH Review of Systems ROS unobtainable: due to mental status Exam - Vital Signs Vital signs: Vital Signs Temp Pulse Resp BP Pulse Ox 102.5 F H 116 H 20 189/97 97 03/02/20 01:28 03/02/20 01:28 03/02/20 01:28 03/02/20 01:28 03/02/20 01:28 Results - Lab Results 03/02/20 01:52 03/02/20 08:03 Most recent lab results Calcium 8.8 mg/dL (8.4-10.2) 03/02/20 01:52 Magnesium 1.40 mg/dL (1.7-2.3) L 03/02/20 01:52 Assessment and Plan ALEJANDRO on CKD likely prerenal azoetimia Metabolic acodisos Hypokalemia hypomagnesemia COVID-19 rule out UTI will start LR 125 cc/h urine lytes, protein and eos ordered renal US ordered strict I&O Daily weight renally dose meds Avoid nephrotoxins Carson Patel MD [phone]
[2020-03-02] MEDS ORDERED: POTASSIUM CHLORIDE 10 MEQ 10 MEQ/100 ML BAG IV NR (10:43)
[2020-03-02] MEDS ORDERED: POTASSIUM CHLORIDE ER 20 MEQ TAB PO NR (10:45)
--- NOTE | 2020-03-02 11:42 | Consultation ---
History of Present Illness - Reason for Consult Consult date: 03/02/20 - History of Present Illness 79-year-old man past medical history CKD, CVA, DM 2, obesity, chronic lymphedema admitted to the hospital with fever, generalized weakness, myalgias, confusion. Is brought to the hospital by EMS and was found to be hypoxic in the field. He was admitted with concern for pyelonephritis and COVID-19. Febrile to 102.5 with a white count of 14.4. Urinalysis with significant pyuria. Blood cultures currently pending. His current receiving ceftriaxone. Imaging personally reviewed: Chest x-ray: No acute findings 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,) Past Surgical History: Other (Spinal fusion C1-C4) Social history: no significant social history Family history: no significant family history Medications and Allergies Allergies Allergy/AdvReac Type Severity Reaction Status Date / Time diclofenac [Diclofenac] Allergy Rash Verified 10/05/18 08:11 Home Medications Medication Instructions Recorded Confirmed Last Taken Type Baclofen [Lioresal] 10 mg PO BID 04/02/13 03/02/20 04/02/13 History Acetaminophen [Acetaminophen TAB] 650 mg PO Q4H PRN #1 tablet 02/28/17 03/02/20 Unknown Rx Aspirin [Aspirin BABY CHEW TAB] 81 mg PO DAILY #1 tab.chew 02/28/17 03/02/20 Unknown Rx DAPTOmycin 246 mg IV Q24H #1 vial 02/28/17 03/02/20 Unknown Rx Ferrous Sulfate [Feosol 325 MG tab] 325 mg PO QDAY #1 tablet 02/28/17 03/02/20 Unknown Rx Gabapentin 300 mg PO Q8HR #1 capsule 02/28/17 03/02/20 Unknown Rx Ondansetron [Zofran INJ] 4 mg IV Q8H PRN #1 vial 02/28/17 03/02/20 Unknown Rx Hhrxaftxgkje-Mshf-Vlvlnwft,Iso 2.25 gm IV Q6HR #10 froz.piggy 02/28/17 03/02/20 Unknown Rx [Zosyn 2.25 gm/50 ml Galaxy Bag] Sodium Hypochlorite [Dakin's Half 1 applic TP Q12H PRN #1 bottle 02/28/17 03/02/20 Unknown Rx Strength] amLODIPine 10 mg PO DAILY #1 tablet 02/28/17 03/02/20 Unknown Rx cefUROXime [Ceftin] 250 mg PO Q12H #20 tablet 09/10/18 03/02/20 Unknown Rx traMADoL [Ultram] 50 mg PO Q6HR PRN #10 tablet 09/10/18 03/02/20 Unknown Rx Potassium Chloride [K-Dur] 2 tab PO QDAY 30 Days #60 tablet 01/21/19 03/02/20 Unknown Rx Active Meds: Active Medications Acetaminophen (Tylenol) 650 mg PO Q4H PRN PRN Reason: Pain MILD(1-3)/Fever >100.5/HUTCHINS Dextrose (D50w (25gm) Syringe) 50 ml IV Q30MIN PRN; Protocol PRN Reason: Hypoglycemia Ceftriaxone Sodium (Rocephin/Ns 1 Gm/50 Ml) 1 gm in 50 mls @ 100 mls/hr IV Q24H IDRIS; Protocol Lactated Ringer's (Lactated Ringers) 1,000 mls @ 125 mls/hr IV DIRECT IDRIS Potassium Chloride (Kcl 10meq/100ml) 10 meq in 100 mls @ 100 mls/hr IV ONCE NR Stop: 03/02/20 12:00 Potassium Chloride (Kcl 10meq/100ml) 10 meq in 100 mls @ 100 mls/hr IV ONCE ONE Stop: 03/02/20 13:59 Insulin Human Lispro (Humalog) 0 unit SUB-Q ACHS IDRIS; Protocol Last Admin: 03/02/20 07:30 Dose: Not Given Documented by: Magnesium Hydroxide (Milk Of Magnesia) 30 ml PO Q4H PRN PRN Reason: Constipation Morphine Sulfate (Morphine) 2 mg IV Q4H PRN PRN Reason: Pain, Moderate (4-6) Ondansetron HCl (Zofran) 4 mg IV Q8H PRN PRN Reason: Nausea And Vomiting Potassium Chloride (K-Dur) 40 meq PO ONCE NR Stop: 03/02/20 12:45 Potassium Chloride (K-Dur) 40 meq PO ONCE ONE Stop: 03/02/20 15:01 Sodium Chloride (Sodium Chloride Flush Syringe 10 Ml) 10 ml IV BID IDRIS Last Admin: 03/02/20 10:00 Dose: 10 ml Documented by: Sodium Chloride (Sodium Chloride Flush Syringe 10 Ml) 10 ml IV PRN PRN PRN Reason: LINE FLUSH Review of Systems ROS unobtainable: due to mental status Physical Examination - Physical Exam Narrative exam: Physical exam deferred due to PPE conservation strategy. Please refer to primary team's note. - Constitutional Vitals: Vital Signs Temp Pulse Resp BP Pulse Ox 98.1 F 80 22 140/69 97 03/02/20 05:50 03/02/20 05:50 03/02/20 05:50 03/02/20 05:50 03/02/20 05:50 Temperature -Last 24 Hours Temperature 98.1 F Temperature 102.5 F Results - Labs CBC & Chem 7: 03/02/20 01:52 03/02/20 08:03 Labs: Abnormal lab results 03/02/20 03/02/20 03/02/20 Range/Units 01:52 01:52 01:52 WBC 14.4 H (4.5-11.0) K/mm3 RBC 3.53 L (3.65-5.03) M/mm3 Hgb 10.7 L (11.8-15.2) gm/dl Hct 33.6 L (35.5-45.6) % MCV 95 H (84-94) fl RDW 16.6 H (13.2-15.2) % Plt Count 467 H (140-440) K/mm3 Seg Neuts % (Manual) 91.0 H (40.0-70.0) % Lymphocytes % (Manual) 6.0 L (13.4-35.0) % Seg Neutrophils # Man 13.1 H (1.8-7.7) K/mm3 Lymphocytes # (Manual) 0.9 L (1.2-5.4) K/mm3 Potassium 2.8 L* (3.6-5.0) mmol/L Carbon Dioxide 20 L (22-30) mmol/L BUN 59 H (9-20) mg/dL Creatinine 2.3 H (0.8-1.3) mg/dL Glucose 123 H (75-100) mg/dL POC Glucose (70-105) Lactic Acid 2.70 H* (0.7-2.0) mmol/L Magnesium (1.7-2.3) mg/dL Ferritin (30.0-300.0) ng/mL Alkaline Phosphatase 144 H (35-129) units/L Lactate Dehydrogenase 219 H (91-180) units/L Total Creatine Kinase (55-170) units/L C-Reactive Protein 2.00 H (0.00-1.30) mg/dL Albumin 3.2 L (3.9-5) g/dL Urine WBC (Auto) (0.0-6.0) /HPF 03/02/20 03/02/20 03/02/20 Range/Units 01:52 01:52 01:52 WBC (4.5-11.0) K/mm3 RBC (3.65-5.03) M/mm3 Hgb (11.8-15.2) gm/dl Hct (35.5-45.6) % MCV (84-94) fl RDW (13.2-15.2) % Plt Count (140-440) K/mm3 Seg Neuts % (Manual) (40.0-70.0) % Lymphocytes % (Manual) (13.4-35.0) % Seg Neutrophils # Man (1.8-7.7) K/mm3 Lymphocytes # (Manual) (1.2-5.4) K/mm3 Potassium (3.6-5.0) mmol/L Carbon Dioxide (22-30) mmol/L BUN (9-20) mg/dL Creatinine (0.8-1.3) mg/dL Glucose 124 H (75-100) mg/dL POC Glucose (70-105) Lactic Acid (0.7-2.0) mmol/L Magnesium 1.40 L (1.7-2.3) mg/dL Ferritin 601.2 H (30.0-300.0) ng/mL Alkaline Phosphatase (35-129) units/L Lactate Dehydrogenase 277 H (91-180) units/L Total Creatine Kinase 34 L (55-170) units/L C-Reactive Protein 2.20 H (0.00-1.30) mg/dL Albumin (3.9-5) g/dL Urine WBC (Auto) (0.0-6.0) /HPF 03/02/20 03/02/20 03/02/20 Range/Units 08:03 08:03 08:04 WBC (4.5-11.0) K/mm3 RBC (3.65-5.03) M/mm3 Hgb (11.8-15.2) gm/dl Hct (35.5-45.6) % MCV (84-94) fl RDW (13.2-15.2) % Plt Count (140-440) K/mm3 Seg Neuts % (Manual) (40.0-70.0) % Lymphocytes % (Manual) (13.4-35.0) % Seg Neutrophils # Man (1.8-7.7) K/mm3 Lymphocytes # (Manual) (1.2-5.4) K/mm3 Potassium 2.5 L* (3.6-5.0) mmol/L Carbon Dioxide (22-30) mmol/L BUN (9-20) mg/dL Creatinine (0.8-1.3) mg/dL Glucose (75-100) mg/dL POC Glucose 136 H (70-105) Lactic Acid 0.60 L (0.7-2.0) mmol/L Magnesium (1.7-2.3) mg/dL Ferritin (30.0-300.0) ng/mL Alkaline Phosphatase (35-129) units/L Lactate Dehydrogenase (91-180) units/L Total Creatine Kinase (55-170) units/L C-Reactive Protein (0.00-1.30) mg/dL Albumin (3.9-5) g/dL Urine WBC (Auto) (0.0-6.0) /HPF 03/02/20 03/02/20 Range/Units 11:19 Unknown WBC (4.5-11.0) K/mm3 RBC (3.65-5.03) M/mm3 Hgb (11.8-15.2) gm/dl Hct (35.5-45.6) % MCV (84-94) fl RDW (13.2-15.2) % Plt Count (140-440) K/mm3 Seg Neuts % (Manual) (40.0-70.0) % Lymphocytes % (Manual) (13.4-35.0) % Seg Neutrophils # Man (1.8-7.7) K/mm3 Lymphocytes # (Manual) (1.2-5.4) K/mm3 Potassium (3.6-5.0) mmol/L Carbon Dioxide (22-30) mmol/L BUN (9-20) mg/dL Creatinine (0.8-1.3) mg/dL Glucose (75-100) mg/dL POC Glucose 166 H (70-105) Lactic Acid (0.7-2.0) mmol/L Magnesium (1.7-2.3) mg/dL Ferritin (30.0-300.0) ng/mL Alkaline Phosphatase (35-129) units/L Lactate Dehydrogenase (91-180) units/L Total Creatine Kinase (55-170) units/L C-Reactive Protein (0.00-1.30) mg/dL Albumin (3.9-5) g/dL Urine WBC (Auto) > 182.0 H (0.0-6.0) /HPF Assessment and Plan Cultures: Blood culture 03/02/2020 pending A/P: 79-year-old man past medical history CKD, CVA, DM 2, obesity, chronic lymphedema family hypoxic with fevers, concern for bronchitis versus COVID-19. #Acute hypoxemic respiratory failure: Possibly secondary to COVID-19 infection. Found to be hypoxic with EMS. #Pyuria: With associated altered mental status and fevers, likely UTI. #CKD: Renally dose antibiotics #Diabetes: tight glycemic control for best outcomes. #Pressure ulcers: Sacrum, bilateral lower extremities. Recs: -Increase ceftriaxone to 2 g daily -Follow blood and urine cultures -Follow-up COVID-19 testing -If COVID-19 positive with start dexamethasone, he is borderline for remdesivir based on renal function. Thank you for the consult, we will continue to follow. Susan Deutsch MD O: [phone] F: [phone]
[2020-03-02] MEDS ORDERED: POTASSIUM CHLORIDE 10 MEQ 10 MEQ/100 ML BAG IV ONE (13:00)
[2020-03-02] MEDS: POTASSIUM CHLORIDE 10 MEQ 10 MEQ/100 ML BAG IV SCH ×2 (14:42→17:05)
[2020-03-02] MEDS ORDERED: cefTRIAXone/NS 1 GM/50 ML 1 GM/50 ML BAG IV SCH (22:00)
[2020-03-03 05:36] LABS: Hematocrit 29.1 % (35.5-45.6); Hemoglobin 9.2 gm/dl (11.8-15.2); Mean Corpuscular HGB Conc 32 % (32-34); Mean Corpuscular Volume 96 fl (84-94); Platelet Count 337 K/mm3 (140-440); Red Blood Count 3.04 M/mm3 (3.65-5.03)
[2020-03-03 05:43] LABS: INR 1.23 (0.87-1.13)
[2020-03-03 06:36] LABS: Anisocytosis Few; Basophils % (Manual) 0 % (0.0-1.8); Schistocytes Few; Total Cells Counted 100
[2020-03-03 06:37] LABS: Ovalocytes Few
[2020-03-03 06:38] LABS: Platelet Estimate Consistent w Auto
[2020-03-03 07:08] LABS: Albumin 2.6 g/dL (3.9-5); Calcium 8.9 mg/dL (8.4-10.2)
[2020-03-03] MEDS: INSULIN LISPRO 100 UNIT/ML VIAL 3 mL SUB-Q SCH ×4 (07:30→22:39)
[2020-03-03] MEDS ORDERED: cefTRIAXone/NS 2 GM/100 ML 2 GM/100 ML BAG IV SCH (10:00)
--- NOTE | 2020-03-03 10:08 | Progress Note ---
Assessment and Plan ALEJANDRO on CKD likely prerenal azoetimia Metabolic acodisos Hypokalemia hypomagnesemia COVID-19 rule out UTI Stable Cr and BUN cont LR 125 cc/h, may decrease tomorrow urine lytes, protein and eos ordered, pending renal US ordered, pending strict I&O Daily weight renally dose meds Avoid nephrotoxins Carson Patel MD [phone] Subjective Date of service: 03/03/20 Principal diagnosis: ALEJANDRO Interval history: denies acute issues, NAD Objective - Vital Signs Vital signs: Vital Signs - 12hr 03/03/20 03/03/20 04:26 06:37 Temperature 98.2 F Pulse Rate 82 Respiratory 16 Rate Blood Pressure 105/49 O2 Sat by Pulse 98 99 Oximetry - General Appearance General appearance: well-developed EENT: ATNC, PERRL Neck: no JVD, no carotid bruit Respiratory: Present: Clear to Ascultation. Absent: Rales, Ronchi Cardiology: regular, S1S2 Gastrointestinal: normoactive bowel sounds, no absent bowel sounds, no tenderness, no distended, no masses Integumentary: no rash, warm and dry Neurologic: no focal deficit, no asterixis, alert and oriented x3 Musculoskeletal: other (no edema in BLE) Psychiatric: cooperative - Lab 03/03/20 04:28 03/03/20 04:28 Most recent lab results Calcium 8.9 mg/dL (8.4-10.2) 03/03/20 04:28 Phosphorus 2.70 mg/dL (2.5-4.5) 03/03/20 04:28 Magnesium 1.70 mg/dL (1.7-2.3) 03/03/20 04:28 Medications & Allergies - Medications Allergies/Adverse Reactions: Allergies diclofenac [Diclofenac] Allergy (Verified 10/05/18 08:11) Rash Home Medications: Home Medications Medication Instructions Recorded Confirmed Last Taken Type Baclofen [Lioresal] 10 mg PO BID 04/02/13 03/02/20 04/02/13 History Acetaminophen [Acetaminophen TAB] 650 mg PO Q4H PRN #1 tablet 02/28/17 03/02/20 Unknown Rx Aspirin [Aspirin BABY CHEW TAB] 81 mg PO DAILY #1 tab.chew 02/28/17 03/02/20 Unknown Rx DAPTOmycin 246 mg IV Q24H #1 vial 02/28/17 03/02/20 Unknown Rx Ferrous Sulfate [Feosol 325 MG tab] 325 mg PO QDAY #1 tablet 02/28/17 03/02/20 Unknown Rx Gabapentin 300 mg PO Q8HR #1 capsule 02/28/17 03/02/20 Unknown Rx Ondansetron [Zofran INJ] 4 mg IV Q8H PRN #1 vial 02/28/17 03/02/20 Unknown Rx Jyzkhdsnwbgt-Mxuf-Drdccusm,Iso 2.25 gm IV Q6HR #10 froz.piggy 02/28/17 03/02/20 Unknown Rx [Zosyn 2.25 gm/50 ml Galaxy Bag] Sodium Hypochlorite [Dakin's Half 1 applic TP Q12H PRN #1 bottle 02/28/17 Unknown Rx Strength] amLODIPine 10 mg PO DAILY #1 tablet 02/28/17 03/02/20 Unknown Rx cefUROXime [Ceftin] 250 mg PO Q12H #20 tablet 09/10/18 03/02/20 Unknown Rx traMADoL [Ultram] 50 mg PO Q6HR PRN #10 tablet 09/10/18 03/02/20 Unknown Rx Potassium Chloride [K-Dur] 2 tab PO QDAY 30 Days #60 tablet 01/21/19 03/02/20 Unknown Rx Active Medications: Generic Name Dose Route Start Last Admin Trade Name Freq PRN Reason Stop Dose Admin Acetaminophen 650 mg 03/02/20 03:40 Tylenol PO Q4H PRN Pain MILD(1-3)/Fever >100.5/HUTCHINS Dextrose 50 ml 03/02/20 03:40 D50w (25gm) Syringe IV Q30MIN PRN Hypoglycemia Protocol Lactated Ringer's 1,000 mls @ 125 mls/hr 03/02/20 09:00 Lactated Ringers IV DIRECT IDRIS Ceftriaxone Sodium 2 gm in 100 mls @ 200 mls/hr 03/03/20 10:00 03/03/20 09:18 Rocephin/Ns 2 Gm/100 Ml IV 200 mls/hr Q24HR IDRIS Administration Protocol Insulin Human Lispro 0 unit 03/02/20 07:30 03/03/20 07:30 Humalog SUB-Q Not Given ACHS IDRIS Protocol Magnesium Hydroxide 30 ml 03/02/20 03:40 Milk Of Magnesia PO Q4H PRN Constipation Morphine Sulfate 2 mg 03/02/20 03:40 Morphine IV Q4H PRN Pain, Moderate (4-6) Ondansetron HCl 4 mg 03/02/20 03:40 Zofran IV Q8H PRN Nausea And Vomiting Sodium Chloride 10 ml 03/02/20 10:00 03/03/20 09:18 Sodium Chloride Flush Syringe 10 Ml IV 10 ml BID IDRIS Administration Sodium Chloride 10 ml 03/02/20 03:40 Sodium Chloride Flush Syringe 10 Ml IV PRN PRN LINE FLUSH
--- NOTE | 2020-03-03 10:56 | Progress Note ---
Assessment and Plan Assessment and plan: Acute hypoxemic respiratory failure. Cont. O2 and Bipap as [id number] indicated. Etiology likely secondary to Sepsis. Sepsis. Pt meets criteria given fever, leukocytosis and dx of UTI. Cont. IV abx. ID following. F/U Cx. Covid negative Toxic metabolic encephalopathy. Cont. treating underlying causes CKD. Renally dose antibiotics Diabetes Mellitus type 2. Tight glycemic control. Sacral and LE Pressure ulcers. Wound care per wound team. hx CVA. Obesity Chronic lymphedema History Interval history: No new issues overnight Hospitalist Physical - Constitutional Vitals: Temp Pulse Resp BP Pulse Ox 98.2 F 82 16 105/49 99 03/03/20 04:26 03/03/20 04:26 03/03/20 04:26 03/03/20 04:26 03/03/20 06:37 General appearance: Present: no acute distress, well-nourished, obese - EENT Eyes: Present: PERRL, EOM intact ENT: hearing intact, clear oral mucosa, dentition normal - Neck Neck: Present: supple, normal ROM - Respiratory Respiratory effort: normal Respiratory: bilateral: CTA - Cardiovascular Rhythm: regular Heart Sounds: Present: S1 & S2. Absent: gallop, rub - Extremities Extremities: no ischemia, No edema, Full ROM - Abdominal General gastrointestinal: soft, non-tender, non-distended, normal bowel sounds - Integumentary Integumentary: Present: clear, warm, dry - Neurologic Neurologic: CNII-XII intact, moves all extremities Results - Labs CBC & Chem 7: 03/03/20 04:28 03/03/20 04:28 Labs: Laboratory Last Values WBC 28.4 K/mm3 (4.5-11.0) H 03/03/20 04:28 RBC 3.04 M/mm3 (3.65-5.03) L 03/03/20 04:28 Hgb 9.2 gm/dl (11.8-15.2) L 03/03/20 04:28 Hct 29.1 % (35.5-45.6) L 03/03/20 04:28 MCV 96 fl (84-94) H 03/03/20 04:28 MCH 30 pg (28-32) 03/03/20 04:28 MCHC 32 % (32-34) 03/03/20 04:28 RDW 17.0 % (13.2-15.2) H 03/03/20 04:28 Plt Count 337 K/mm3 (140-440) 03/03/20 04:28 Add Manual Diff Complete 03/03/20 04:28 Total Counted 100 03/03/20 04:28 Seg Neutrophils % [employer] 03/03/20 04:28 Seg Neuts % (Manual) 90.0 % (40.0-70.0) H 03/03/20 04:28 Band Neutrophils % 0 % 03/03/20 04:28 Lymphocytes % (Manual) 6.0 % (13.4-35.0) L 03/03/20 04:28 Reactive Lymphs % (Man) 0 % 03/03/20 04:28 Monocytes % (Manual) 3.0 % (0.0-7.3) 03/03/20 04:28 Eosinophils % (Manual) 1.0 % (0.0-4.3) 03/03/20 04:28 Basophils % (Manual) 0 % (0.0-1.8) 03/03/20 04:28 Metamyelocytes % 0 % 03/03/20 04:28 Myelocytes % 0 % 03/03/20 04:28 Promyelocytes % 0 % 03/03/20 04:28 Blast Cells % 0 % 03/03/20 04:28 Nucleated RBC % Not Reportable 03/03/20 04:28 Seg Neutrophils # Man 25.6 K/mm3 (1.8-7.7) H 03/03/20 04:28 Band Neutrophils # 0.0 K/mm3 03/03/20 04:28 Lymphocytes # (Manual) 1.7 K/mm3 (1.2-5.4) 03/03/20 04:28 Abs React Lymphs (Man) 0.0 K/mm3 03/03/20 04:28 Monocytes # (Manual) 0.9 K/mm3 (0.0-0.8) H 03/03/20 04:28 Eosinophils # (Manual) 0.3 K/mm3 (0.0-0.4) 03/03/20 04:28 Basophils # (Manual) 0.0 K/mm3 (0.0-0.1) 03/03/20 04:28 Metamyelocytes # 0.0 K/mm3 03/03/20 04:28 Myelocytes # 0.0 K/mm3 03/03/20 04:28 Promyelocytes # 0.0 K/mm3 03/03/20 04:28 Blast Cells # 0.0 K/mm3 03/03/20 04:28 WBC Morphology Not Reportable 03/03/20 04:28 Hypersegmented Neuts Not Reportable 03/03/20 04:28 Hyposegmented Neuts Not Reportable 03/03/20 04:28 Hypogranular Neuts Not Reportable 03/03/20 04:28 Smudge Cells Not Reportable 03/03/20 04:28 Toxic Granulation Not Reportable 03/03/20 04:28 Toxic Vacuolation Not Reportable 03/03/20 04:28 Dohle Bodies Not Reportable 03/03/20 04:28 Pelger-Huet Anomaly Not Reportable 03/03/20 04:28 Santiago Rods Not Reportable 03/03/20 04:28 Platelet Estimate Consistent w auto 03/03/20 04:28 Clumped Platelets Not Reportable 03/03/20 04:28 Plt Clumps, EDTA Not Reportable 03/03/20 04:28 Large Platelets Not Reportable 03/03/20 04:28 Giant Platelets Not Reportable 03/03/20 04:28 Platelet Satelliting Not Reportable 03/03/20 04:28 Plt Morphology Comment Not Reportable 03/03/20 04:28 RBC Morphology Not Reportable 03/03/20 04:28 Dimorphic RBCs Not Reportable 03/03/20 04:28 Polychromasia Not Reportable 03/03/20 04:28 Hypochromasia Not Reportable 03/03/20 04:28 Poikilocytosis Not Reportable 03/03/20 04:28 Anisocytosis Few 03/03/20 04:28 Microcytosis Not Reportable 03/03/20 04:28 Macrocytosis Not Reportable 03/03/20 04:28 Spherocytes Not Reportable 03/03/20 04:28 Pappenheimer Bodies Not Reportable 03/03/20 04:28 Sickle Cells Not Reportable 03/03/20 04:28 Target Cells Not Reportable 03/03/20 04:28 Tear Drop Cells Not Reportable 03/03/20 04:28 Ovalocytes Few 03/03/20 04:28 Helmet Cells Not Reportable 03/03/20 04:28 [place] Bodies Not Reportable 03/03/20 04:28 [place] Rings Not Reportable 03/03/20 04:28 Luis Alfredo Cells Not Reportable 03/03/20 04:28 Bite Cells Not Reportable 03/03/20 04:28 Crenated Cell Not Reportable 03/03/20 04:28 Elliptocytes Not Reportable 03/03/20 04:28 Acanthocytes (Spur) Not Reportable 03/03/20 04:28 Rouleaux Not Reportable 03/03/20 04:28 Hemoglobin C Crystals Not Reportable 03/03/20 04:28 Schistocytes Few 03/03/20 04:28 Malaria parasites Not Reportable 03/03/20 04:28 Isauro Bodies Not Reportable 03/03/20 04:28 Hem Pathologist Commnt No 03/03/20 04:28 PT 15.8 Sec. (12.2-14.9) H 03/03/20 04:28 INR 1.23 (0.87-1.13) H 03/03/20 04:28 APTT 34.9 Sec. (24.2-36.6) 03/02/20 01:52 Sodium 140 mmol/L (137-145) 03/03/20 04:28 Potassium 3.6 mmol/L (3.6-5.0) D 03/03/20 04:28 Chloride 103.7 mmol/L (98-107) 03/03/20 04:28 Carbon Dioxide 20 mmol/L (22-30) L 03/03/20 04:28 Anion Gap 20 mmol/L 03/03/20 04:28 BUN 61 mg/dL (9-20) H 03/03/20 04:28 Creatinine 2.2 mg/dL (0.8-1.3) H 03/03/20 04:28 Estimated GFR 35 ml/min 03/03/20 04:28 BUN/Creatinine Ratio 28 % 03/03/20 04:28 Glucose 107 mg/dL (75-100) H 03/03/20 04:28 POC Glucose 138 (70-105) H 03/03/20 07:47 Lactic Acid 0.60 mmol/L (0.7-2.0) L 03/02/20 08:03 Calcium 8.9 mg/dL (8.4-10.2) 03/03/20 04:28 Phosphorus 2.70 mg/dL (2.5-4.5) 03/03/20 04:28 Magnesium 1.70 mg/dL (1.7-2.3) 03/03/20 04:28 Ferritin 601.2 ng/mL (30.0-300.0) H 03/02/20 01:52 Total Bilirubin 0.40 mg/dL (0.1-1.2) 03/03/20 04:28 AST 24 units/L (5-40) 03/03/20 04:28 ALT 15 units/L (7-56) 03/03/20 04:28 Alkaline Phosphatase 132 units/L (35-129) H 03/03/20 04:28 Lactate Dehydrogenase 251 units/L (91-180) H 03/02/20 08:03 Total Creatine Kinase 34 units/L (55-170) L 03/02/20 01:52 C-Reactive Protein 2.00 mg/dL (0.00-1.30) H 03/02/20 01:52 C-Reactive Protein 2.20 mg/dL (0.00-1.30) H 03/02/20 01:52 Total Protein 6.0 g/dL (6.3-8.2) L 03/03/20 04:28 Albumin 2.6 g/dL (3.9-5) L 03/03/20 04:28 Albumin/Globulin Ratio 0.8 % 03/03/20 04:28 Procalcitonin 3.07 ng/mL (<0.15) 03/02/20 01:52 TSH 0.885 mlU/mL (0.270-4.200) 03/02/20 01:52 Urine Color Yellow (Yellow) 03/02/20 Unknown Urine Turbidity Cloudy (Clear) 03/02/20 Unknown Urine pH 5.0 (5.0-7.0) 03/02/20 Unknown Ur Specific [place] 1.010 (1.003-1.030) 03/02/20 Unknown Urine Protein 100 mg/dl mg/dL (Negative) 03/02/20 Unknown Urine Glucose (UA) Neg mg/dL (Negative) 03/02/20 Unknown Urine Ketones Neg mg/dL (Negative) 03/02/20 Unknown Urine Blood Sm (Negative) 03/02/20 Unknown Urine Nitrite Pos (Negative) 03/02/20 Unknown Urine Bilirubin Neg (Negative) 03/02/20 Unknown Urine Urobilinogen < 2.0 mg/dL (<2.0) 03/02/20 Unknown Ur Leukocyte Esterase Lg (Negative) 03/02/20 Unknown Urine WBC (Auto) > 182.0 /HPF (0.0-6.0) H 03/02/20 Unknown Urine RBC (Auto) 15.0 /HPF (0.0-6.0) 03/02/20 Unknown U Epithel Cells (Auto) 2.0 /HPF (0-13.0) 03/02/20 Unknown Urine Bacteria (Auto) 4+ /HPF (Negative) 03/02/20 Unknown Hyaline Casts 1 /LPF 03/02/20 Unknown Urine Mucus Few /HPF 03/02/20 Unknown Coronavirus (PCR) Negative (Negative) 03/02/20 10:44 Microbiology: Microbiology 03/02/20 02:19 Peripheral/Venous Blood Culture - Preliminary NO GROWTH AFTER 24 HOURS 03/02/20 01:52 Peripheral/Venous Blood Culture - Preliminary NO GROWTH AFTER 24 HOURS Cunningham/IV: Voiding Method Condom Catheter IV Catheter Type [Left INT / Saline Lock Antecubital] Active Medications - Current Medications Current Medications: Generic Name Dose Route Start Last Admin Trade Name Freq PRN Reason Stop Dose Admin Acetaminophen 650 mg 03/02/20 03:40 Tylenol PO Q4H PRN Pain MILD(1-3)/Fever >100.5/HUTCHINS Dextrose 50 ml 03/02/20 03:40 D50w (25gm) Syringe IV Q30MIN PRN Hypoglycemia Protocol Lactated Ringer's 1,000 mls @ 125 mls/hr 03/02/20 09:00 Lactated Ringers IV DIRECT IDRIS Ceftriaxone Sodium 2 gm in 100 mls @ 200 mls/hr 03/03/20 10:00 03/03/20 09:18 Rocephin/Ns 2 Gm/100 Ml IV 200 mls/hr Q24HR IDRIS Administration Protocol Insulin Human Lispro 0 unit 03/02/20 07:30 03/03/20 07:30 Humalog SUB-Q Not Given ACHS IDRIS Protocol Magnesium Hydroxide 30 ml 03/02/20 03:40 Milk Of Magnesia PO Q4H PRN Constipation Morphine Sulfate 2 mg 03/02/20 03:40 Morphine IV Q4H PRN Pain, Moderate (4-6) Ondansetron HCl 4 mg 03/02/20 03:40 Zofran IV Q8H PRN Nausea And Vomiting Sodium Chloride 10 ml 03/02/20 10:00 03/03/20 09:18 Sodium Chloride Flush Syringe 10 Ml IV 10 ml BID IDRIS Administration Sodium Chloride 10 ml 03/02/20 03:40 Sodium Chloride Flush Syringe 10 Ml IV PRN PRN LINE FLUSH Nutrition/Malnutrition Assess - Dietary Evaluation Nutrition/Malnutrition Findings: Nutrition Notes Start: 03/02/20 10:3 3 Freq: Status: Active Protocol: Document 03/02/20 10:33 LM (Rec: 03/02/20 10:43 LM [id number]) Nutrition Notes Need for Assessment generated from: MD Order Initial or Follow up Assessment Current Diagnosis CKD(stage I-IV),Diabetes, Sepsis,Hypertension Other Pertinent Diagnosis Suspected COVID-19, UTI, multiple skin ulcers Current Diet Cardiac/consistent CHO Labs/Tests K 2.8 BUN 59 Cr 2.3 Pertinent Medications Reviewed Height 5 ft 8 in Weight 121.5 kg [place] Body Weight (kg) 70.00 BMI 40.7 Weight Status Morbidly Obese Subjective/Other Information MD consult for diet education. Unable to reach pt by phone. Pt has several skin ulcers, belem score is 14. Pt also has LE edema. Burn Absent Trauma Absent Minimum of two criteria No Fluid Accumulation Mild (non-severe) #1 Nutrition Diagnosis Increased nutrient needs ( specify in comment below) Comments: Protein Etiology Wound healing As Evidenced by Signs and Symptoms Pt with multiple skin ulcers Is patient on ventilator? No Is Patient Ambulatory and/or Out of Bed No REE-([facility]-confined to bed) 2279.724 Kcal/Kg value to use for calculation 15 Approximate Energy Requirements Using 1823 kcal/Kg Calculation Used for Recommendations Kcal/kg Additional Notes Protein: 77-144g (0.8-1.5g/kg using AdjBW of 96kg) Fluid: 1ml/kcal Nutrition Intervention Change Diet Order: Continue Goal #1 Meet at least 75% of energy and protein needs Goal #2 Wound healing Anticipated Discharge Needs: cardiac/consistent CHO Follow-Up By: 03/13/20 Additional Comments F/U for intakes, diet education
--- NOTE | 2020-03-03 12:31 | Progress Note ---
Assessment and Plan Cultures: Blood culture 03/02/2020 pending COVID-19 negative A/P: 79-year-old man past medical history CKD, CVA, DM 2, obesity, chronic ly mphedema family hypoxic with fevers, concern for bronchitis versus COVID-19. #Acute hypoxemic respiratory failure: Possibly secondary to COVID-19 infection. Found to be hypoxic with EMS. #Pyuria: With associated altered mental status and fevers, likely UTI. #CKD: Renally dose antibiotics #Diabetes: tight glycemic control for best outcomes. #Pressure ulcers: Sacrum, bilateral lower extremities. Recs: -Increase ceftriaxone to 2 g daily -Follow blood and urine cultures -Given worsening leukocytosis will change ceftriaxone to cefepime renally dosed to increase gram negative coverage. Thank you for the consult, we will continue to follow. Susan Deutsch MD O: [phone] F: [phone] Subjective Date of service: 03/03/20 Principal diagnosis: ALEJANDRO Interval history: Afebrile for past 24 hours white count worsened to 28.4. Covid negative. Objective - Exam Narrative Exam: Physical exam deferred due to PPE conservation strategy. Please refer to primary team's note. - Constitutional Vitals: Vital Signs Temp Pulse Resp BP Pulse Ox 98.2 F 82 16 105/49 99 03/03/20 04:26 03/03/20 04:26 03/03/20 04:26 03/03/20 04:26 03/03/20 06:37 Temperature -Last 24 Hours Temperature 98.2 F Temperature 97.7 F Temperature 97.9 F - Labs CBC & Chem 7: 03/03/20 04:28 03/03/20 04:28 Labs: Abnormal lab results 03/02/20 03/02/20 03/03/20 Range/Units 17:30 21:22 04:28 WBC 28.4 H (4.5-11.0) K/mm3 RBC 3.04 L (3.65-5.03) M/mm3 Hgb 9.2 L (11.8-15.2) gm/dl Hct 29.1 L (35.5-45.6) % MCV 96 H (84-94) fl RDW 17.0 H (13.2-15.2) % Seg Neuts % (Manual) 90.0 H (40.0-70.0) % Lymphocytes % (Manual) 6.0 L (13.4-35.0) % Seg Neutrophils # Man 25.6 H (1.8-7.7) K/mm3 Monocytes # (Manual) 0.9 H (0.0-0.8) K/mm3 PT (12.2-14.9) Sec. INR (0.87-1.13) Carbon Dioxide (22-30) mmol/L BUN (9-20) mg/dL Creatinine (0.8-1.3) mg/dL Glucose (75-100) mg/dL POC Glucose 131 H 157 H (70-105) Alkaline Phosphatase (35-129) units/L Total Protein (6.3-8.2) g/dL Albumin (3.9-5) g/dL 03/03/20 03/03/20 03/03/20 Range/Units 04:28 04:28 07:47 WBC (4.5-11.0) K/mm3 RBC (3.65-5.03) M/mm3 Hgb (11.8-15.2) gm/dl Hct (35.5-45.6) % MCV (84-94) fl RDW (13.2-15.2) % Seg Neuts % (Manual) (40.0-70.0) % Lymphocytes % (Manual) (13.4-35.0) % Seg Neutrophils # Man (1.8-7.7) K/mm3 Monocytes # (Manual) (0.0-0.8) K/mm3 PT 15.8 H (12.2-14.9) Sec. INR 1.23 H (0.87-1.13) Carbon Dioxide 20 L (22-30) mmol/L BUN 61 H (9-20) mg/dL Creatinine 2.2 H (0.8-1.3) mg/dL Glucose 107 H (75-100) mg/dL POC Glucose 138 H (70-105) Alkaline Phosphatase 132 H (35-129) units/L Total Protein 6.0 L (6.3-8.2) g/dL Albumin 2.6 L (3.9-5) g/dL 03/03/20 Range/Units 11:14 WBC (4.5-11.0) K/mm3 RBC (3.65-5.03) M/mm3 Hgb (11.8-15.2) gm/dl Hct (35.5-45.6) % MCV (84-94) fl RDW (13.2-15.2) % Seg Neuts % (Manual) (40.0-70.0) % Lymphocytes % (Manual) (13.4-35.0) % Seg Neutrophils # Man (1.8-7.7) K/mm3 Monocytes # (Manual) (0.0-0.8) K/mm3 PT (12.2-14.9) Sec. INR (0.87-1.13) Carbon Dioxide (22-30) mmol/L BUN (9-20) mg/dL Creatinine (0.8-1.3) mg/dL Glucose (75-100) mg/dL POC Glucose 141 H (70-105) Alkaline Phosphatase (35-129) units/L Total Protein (6.3-8.2) g/dL Albumin (3.9-5) g/dL
[2020-03-03] MEDS: CEFEPIME/NS 2 GM/100 ML 2 GM/100 ML BAG IV SCH ×2 (13:47→22:39)
[2020-03-03] MEDS: LACTATED RINGERS 1,000 ML IV SCH (19:30)
[2020-03-04] MEDS: INSULIN LISPRO 100 UNIT/ML VIAL 3 mL SUB-Q SCH ×4 (07:52→22:05)
[2020-03-04 08:46] LABS: Basophils % (Auto) 0.2 % (0.0-1.8); Eosinophils # (Auto) 0.3 K/mm3 (0.0-0.4); Eosinophils % (Auto) 0.9 % (0.0-4.3); Hematocrit 27.9 % (35.5-45.6); Hemoglobin 9.1 gm/dl (11.8-15.2); Lymphocytes # (Auto) 2.6 K/mm3 (1.2-5.4); Lymphocytes % (Auto) 9.1 % (13.4-35.0); Mean Corpuscular HGB Conc 33 % (32-34); Mean Corpuscular Volume 95 fl (84-94); Monocytes # (Auto) 1.2 K/mm3 (0.0-0.8); Monocytes % (Auto) 4.1 % (0.0-7.3); Platelet Count 313 K/mm3 (140-440); Red Blood Count 2.95 M/mm3 (3.65-5.03); Red Cell Distribution Width 16.4 % (13.2-15.2)
[2020-03-04 08:47] LABS: Basophils # (Auto) 0.1 K/mm3 (0.0-0.1)
--- NOTE | 2020-03-04 08:50 | Progress Note ---
Assessment and Plan Assessment and plan: Acute hypoxemic respiratory failure. Cont. O2 and Bipap as [id number] indicated. Etiology likely secondary to Sepsis. Sepsis. Pt meets criteria given fever, leukocytosis and dx of UTI. Cont. IV abx. ID following. F/U Cx. Covid negative Toxic metabolic encephalopathy. Cont. treating underlying causes CKD. Etiology likely related to hypertensive nephropathy. Diabetes Mellitus type 2. Tight glycemic control. Sacral and LE Pressure ulcers. Wound care per wound team. hx CVA. Obesity Chronic lymphedema. 03/04/2020. Continue ceftriaxone per ID recommendations. Follow-up blood and urine cultures. COVID-19 testing negative. Patient appears to be at baseline with creatinine. Patient with chronic kidney disease. Creatinine of 2.3 2017. Await renal ultrasound. Patient reports that he would like to sign out AMA. History Interval history: 79-year-old man past medical history CKD, CVA, DM 2, obesity, chronic lymphedema admitted to the hospital with fever, generalized weakness, myalgias, confusion. Is brought to the hospital by EMS and was found to be hypoxic in the field. He was admitted with concern for pyelonephritis and COVID-19. Patient appears to be back to his baseline mental status. No new issues overnight. Patient states he feels much better. Patient wants to go home and opted to sign himself out AMA. Hospitalist Physical - Constitutional Vitals: Temp Pulse Resp BP Pulse Ox 97.7 F 61 20 137/65 94 03/04/20 04:44 03/04/20 04:54 03/04/20 04:44 03/04/20 04:44 03/03/20 21:08 General appearance: Present: no acute distress, well-nourished, obese - EENT Eyes: Present: PERRL, EOM intact ENT: hearing intact, clear oral mucosa, dentition normal - Neck Neck: Present: supple, normal ROM - Respiratory Respiratory effort: normal Respiratory: bilateral: CTA - Cardiovascular Rhythm: regular Heart Sounds: Present: S1 & S2. Absent: gallop, rub - Extremities Extremities: no ischemia, No edema, Full ROM - Abdominal General gastrointestinal: soft, non-tender, non-distended, normal bowel sounds - Integumentary Integumentary: Present: clear, warm, dry - Neurologic Neurologic: CNII-XII intact, moves all extremities Results - Labs CBC & Chem 7: 03/03/20 04:28 03/03/20 04:28 Labs: Laboratory Last Values WBC 28.4 K/mm3 (4.5-11.0) H 03/03/20 04:28 RBC 3.04 M/mm3 (3.65-5.03) L 03/03/20 04:28 Hgb 9.2 gm/dl (11.8-15.2) L 03/03/20 04:28 Hct 29.1 % (35.5-45.6) L 03/03/20 04:28 MCV 96 fl (84-94) H 03/03/20 04:28 MCH 30 pg (28-32) 03/03/20 04:28 MCHC 32 % (32-34) 03/03/20 04:28 RDW 17.0 % (13.2-15.2) H 03/03/20 04:28 Plt Count 337 K/mm3 (140-440) 03/03/20 04:28 Add Manual Diff Complete 03/03/20 04:28 Total Counted 100 03/03/20 04:28 Seg Neutrophils % Oil [employer]iner 03/03/20 04:28 Seg Neuts % (Manual) 90.0 % (40.0-70.0) H 03/03/20 04:28 Band Neutrophils % 0 % 03/03/20 04:28 Lymphocytes % (Manual) 6.0 % (13.4-35.0) L 03/03/20 04:28 Reactive Lymphs % (Man) 0 % 03/03/20 04:28 Monocytes % (Manual) 3.0 % (0.0-7.3) 03/03/20 04:28 Eosinophils % (Manual) 1.0 % (0.0-4.3) 03/03/20 04:28 Basophils % (Manual) 0 % (0.0-1.8) 03/03/20 04:28 Metamyelocytes % 0 % 03/03/20 04:28 Myelocytes % 0 % 03/03/20 04:28 Promyelocytes % 0 % 03/03/20 04:28 Blast Cells % 0 % 03/03/20 04:28 Nucleated RBC % Not Reportable 03/03/20 04:28 Seg Neutrophils # Man 25.6 K/mm3 (1.8-7.7) H 03/03/20 04:28 Band Neutrophils # 0.0 K/mm3 03/03/20 04:28 Lymphocytes # (Manual) 1.7 K/mm3 (1.2-5.4) 03/03/20 04:28 Abs React Lymphs (Man) 0.0 K/mm3 03/03/20 04:28 Monocytes # (Manual) 0.9 K/mm3 (0.0-0.8) H 03/03/20 04:28 Eosinophils # (Manual) 0.3 K/mm3 (0.0-0.4) 03/03/20 04:28 Basophils # (Manual) 0.0 K/mm3 (0.0-0.1) 03/03/20 04:28 Metamyelocytes # 0.0 K/mm3 03/03/20 04:28 Myelocytes # 0.0 K/mm3 03/03/20 04:28 Promyelocytes # 0.0 K/mm3 03/03/20 04:28 Blast Cells # 0.0 K/mm3 03/03/20 04:28 WBC Morphology Not Reportable 03/03/20 04:28 Hypersegmented Neuts Not Reportable 03/03/20 04:28 Hyposegmented Neuts Not Reportable 03/03/20 04:28 Hypogranular Neuts Not Reportable 03/03/20 04:28 Smudge Cells Not Reportable 03/03/20 04:28 Toxic Granulation Not Reportable 03/03/20 04:28 Toxic Vacuolation Not Reportable 03/03/20 04:28 Dohle Bodies Not Reportable 03/03/20 04:28 Pelger-Huet Anomaly Not Reportable 03/03/20 04:28 Santiago Rods Not Reportable 03/03/20 04:28 Platelet Estimate Consistent w auto 03/03/20 04:28 Clumped Platelets Not Reportable 03/03/20 04:28 Plt Clumps, EDTA Not Reportable 03/03/20 04:28 Large Platelets Not Reportable 03/03/20 04:28 Giant Platelets Not Reportable 03/03/20 04:28 Platelet Satelliting Not Reportable 03/03/20 04:28 Plt Morphology Comment Not Reportable 03/03/20 04:28 RBC Morphology Not Reportable 03/03/20 04:28 Dimorphic RBCs Not Reportable 03/03/20 04:28 Polychromasia Not Reportable 03/03/20 04:28 Hypochromasia Not Reportable 03/03/20 04:28 Poikilocytosis Not Reportable 03/03/20 04:28 Anisocytosis Few 03/03/20 04:28 Microcytosis Not Reportable 03/03/20 04:28 Macrocytosis Not Reportable 03/03/20 04:28 Spherocytes Not Reportable 03/03/20 04:28 Pappenheimer Bodies Not Reportable 03/03/20 04:28 Sickle Cells Not Reportable 03/03/20 04:28 Target Cells Not Reportable 03/03/20 04:28 Tear Drop Cells Not Reportable 03/03/20 04:28 Ovalocytes Few 03/03/20 04:28 Helmet Cells Not Reportable 03/03/20 04:28 [place] Bodies Not Reportable 03/03/20 04:28 [place] Rings Not Reportable 03/03/20 04:28 [place] Cells Not Reportable 03/03/20 04:28 Bite Cells Not Reportable 03/03/20 04:28 Crenated Cell Not Reportable 03/03/20 04:28 Elliptocytes Not Reportable 03/03/20 04:28 Acanthocytes (Spur) Not Reportable 03/03/20 04:28 Rouleaux Not Reportable 03/03/20 04:28 Hemoglobin C Crystals Not Reportable 03/03/20 04:28 Schistocytes Few 03/03/20 04:28 Malaria parasites Not Reportable 03/03/20 04:28 Isauro Bodies Not Reportable 03/03/20 04:28 Hem Pathologist Commnt No 03/03/20 04:28 PT 15.8 Sec. (12.2-14.9) H 03/03/20 04:28 INR 1.23 (0.87-1.13) H 03/03/20 04:28 APTT 34.9 Sec. (24.2-36.6) 03/02/20 01:52 Sodium 140 mmol/L (137-145) 03/03/20 04:28 Potassium 3.6 mmol/L (3.6-5.0) D 03/03/20 04:28 Chloride 103.7 mmol/L (98-107) 03/03/20 04:28 Carbon Dioxide 20 mmol/L (22-30) L 03/03/20 04:28 Anion Gap 20 mmol/L 03/03/20 04:28 BUN 61 mg/dL (9-20) H 03/03/20 04:28 Creatinine 2.2 mg/dL (0.8-1.3) H 03/03/20 04:28 Estimated GFR 35 ml/min 03/03/20 04:28 BUN/Creatinine Ratio 28 % 03/03/20 04:28 Glucose 107 mg/dL (75-100) H 03/03/20 04:28 POC Glucose 128 (70-105) H 03/03/20 21:28 Lactic Acid 0.60 mmol/L (0.7-2.0) L 03/02/20 08:03 Calcium 8.9 mg/dL (8.4-10.2) 03/03/20 04:28 Phosphorus 2.70 mg/dL (2.5-4.5) 03/03/20 04:28 Magnesium 1.70 mg/dL (1.7-2.3) 03/03/20 04:28 Ferritin 601.2 ng/mL (30.0-300.0) H 03/02/20 01:52 Total Bilirubin 0.40 mg/dL (0.1-1.2) 03/03/20 04:28 AST 24 units/L (5-40) 03/03/20 04:28 ALT 15 units/L (7-56) 03/03/20 04:28 Alkaline Phosphatase 132 units/L (35-129) H 03/03/20 04:28 Lactate Dehydrogenase 251 units/L (91-180) H 03/02/20 08:03 Total Creatine Kinase 34 units/L (55-170) L 03/02/20 01:52 C-Reactive Protein 2.00 mg/dL (0.00-1.30) H 03/02/20 01:52 C-Reactive Protein 2.20 mg/dL (0.00-1.30) H 03/02/20 01:52 Total Protein 6.0 g/dL (6.3-8.2) L 03/03/20 04:28 Albumin 2.6 g/dL (3.9-5) L 03/03/20 04:28 Albumin/Globulin Ratio 0.8 % 03/03/20 04:28 Procalcitonin 3.07 ng/mL (<0.15) 03/02/20 01:52 TSH 0.885 mlU/mL (0.270-4.200) 03/02/20 01:52 Urine Color Yellow (Yellow) 03/02/20 Unknown Urine Turbidity Cloudy (Clear) 03/02/20 Unknown Urine pH 5.0 (5.0-7.0) 03/02/20 Unknown Ur Specific [place] 1.010 (1.003-1.030) 03/02/20 Unknown Urine Protein 100 mg/dl mg/dL (Negative) 03/02/20 Unknown Urine Glucose (UA) Neg mg/dL (Negative) 03/02/20 Unknown Urine Ketones Neg mg/dL (Negative) 03/02/20 Unknown Urine Blood Sm (Negative) 03/02/20 Unknown Urine Nitrite Pos (Negative) 03/02/20 Unknown Urine Bilirubin Neg (Negative) 03/02/20 Unknown Urine Urobilinogen < 2.0 mg/dL (<2.0) 03/02/20 Unknown Ur Leukocyte Esterase Lg (Negative) 03/02/20 Unknown Urine WBC (Auto) > 182.0 /HPF (0.0-6.0) H 03/02/20 Unknown Urine RBC (Auto) 15.0 /HPF (0.0-6.0) 03/02/20 Unknown U Epithel Cells (Auto) 2.0 /HPF (0-13.0) 03/02/20 Unknown Urine Bacteria (Auto) 4+ /HPF (Negative) 03/02/20 Unknown Hyaline Casts 1 /LPF 03/02/20 Unknown Urine Mucus Few /HPF 03/02/20 Unknown Coronavirus (PCR) Negative (Negative) 03/02/20 10:44 Microbiology: Microbiology 03/02/20 01:52 Peripheral/Venous Blood Culture - Preliminary Gram Negative Tylor 03/02/20 Unknown Urine,Catheterized - Straight Catheter Urine Culture - Preliminary 03/02/20 02:19 Peripheral/Venous Blood Culture - Preliminary Gram Negative Tylor Cunningham/IV: Voiding Method Condom Catheter IV Catheter Type [Left INT / Saline Lock Antecubital] Active Medications - Current Medications Current Medications: Generic Name Dose Route Start Last Admin Trade Name Freq PRN Reason Stop Dose Admin Acetaminophen 650 mg 03/02/20 03:40 Tylenol PO Q4H PRN Pain MILD(1-3)/Fever >100.5/HUTCHINS Dextrose 50 ml 03/02/20 03:40 D50w (25gm) Syringe IV Q30MIN PRN Hypoglycemia Protocol Lactated Ringer's 1,000 mls @ 125 mls/hr 03/02/20 09:00 03/03/20 19:30 Lactated Ringers IV 125 mls/hr DIRECT IDRIS Administration Cefepime HCl 2 gm in 100 mls @ 200 mls/hr 03/03/20 13:00 03/03/20 22:39 Cefepime/Ns 2 Gm/100 Ml IV 200 mls/hr Q12HR IDRIS Administration Protocol Insulin Human Lispro 0 unit 03/02/20 07:30 03/04/20 07:52 Humalog SUB-Q Not Given ACHS IDRIS Protocol Magnesium Hydroxide 30 ml 03/02/20 03:40 Milk Of Magnesia PO Q4H PRN Constipation Morphine Sulfate 2 mg 03/02/20 03:40 Morphine IV Q4H PRN Pain, Moderate (4-6) Ondansetron HCl 4 mg 03/02/20 03:40 Zofran IV Q8H PRN Nausea And Vomiting Sodium Chloride 10 ml 03/02/20 10:00 03/03/20 22:40 Sodium Chloride Flush Syringe 10 Ml IV Not Given BID IDRIS Sodium Chloride 10 ml 03/02/20 03:40 Sodium Chloride Flush Syringe 10 Ml IV PRN PRN LINE FLUSH Nutrition/Malnutrition Assess - Dietary Evaluation Nutrition/Malnutrition Findings: Nutrition Notes Start: 03/02/20 10:33 Freq: Status: Active Protocol: Document 03/02/20 10:33 LM (Rec: 03/02/20 10:43 LM [id number]) Nutrition Notes Need for Assessment generated from: MD Order Initial or Follow up Assessment Current Diagnosis CKD(stage I-IV),Diabetes, Sepsis,Hypertension Other Pertinent Diagnosis Suspected COVID-19, UTI, multiple skin ulcers Current Diet Cardiac/consistent CHO Labs/Tests K 2.8 BUN 59 Cr 2.3 Pertinent Medications Reviewed Height 5 ft 8 in Weight 121.5 kg [place] Body Weight (kg) 70.00 BMI 40.7 Weight Status Morbidly Obese Subjective/Other Information MD consult for diet education. Unable to reach pt by phone. Pt has several skin ulcers, belem score is 14. Pt also has LE edema. Burn Absent Trauma Absent Minimum of two criteria No Fluid Accumulation Mild (non-severe) #1 Nutrition Diagnosis Increased nutrient needs ( specify in comment below) Comments: Protein Etiology Wound healing As Evidenced by Signs and Symptoms Pt with multiple skin ulcers Is patient on ventilator? No Is Patient Ambulatory and/or Out of Bed No REE-([place]-confined to bed) 2279.724 Kcal/Kg value to use for calculation 15 Approximate Energy Requirements Using 1823 kcal/Kg Calculation Used for Recommendations Kcal/kg Additional Notes Protein: 77-144g (0.8-1.5g/kg using AdjBW of 96kg) Fluid: 1ml/kcal Nutrition Intervention Change Diet Order: Continue Goal #1 Meet at least 75% of energy and protein needs Goal #2 Wound healing Anticipated Discharge Needs: cardiac/consistent CHO Follow-Up By: 03/13/20 Additional Comments F/U for intakes, diet education
[2020-03-04 09:02] LABS: Calcium 8.8 mg/dL (8.4-10.2)
--- NOTE | 2020-03-04 10:44 | Progress Note ---
Assessment and Plan ALEJANDRO on CKD likely prerenal azoetimia Metabolic acodisos Hypokalemia hypomagnesemia COVID-19 rule out UTI Cr slightly down. monitor. On IVFs Replace K PRN urine lytes, protein and eos ordered renal US ordered, pending strict I&O Daily weight renally dose meds Avoid nephrotoxins Subjective Date of service: 03/04/20 Principal diagnosis: ALEJANDRO Interval history: Making urine. Objective - Exam Narrative Exam: General appearance: well-developed EENT: ATNC, PERRL Neck: no JVD, no carotid bruit Respiratory: Present: Clear to Ascultation. Absent: Rales, Ronchi Cardiology: regular, S1S2 Gastrointestinal: normoactive bowel sounds, no absent bowel sounds, no tenderness, no distended, no masses Integumentary: no rash, warm and dry Neurologic: no focal deficit, no asterixis, alert and oriented x3 Musculoskeletal: other (no edema in BLE) Psychiatric: cooperative - Vital Signs Vital signs: Vital Signs - 12hr 03/04/20 03/04/20 04:44 04:54 Temperature 97.7 F Pulse Rate 61 Respiratory 20 Rate Blood Pressure 137/65 - Lab 03/04/20 07:15 03/04/20 07:15 Most recent lab results Calcium 8.8 mg/dL (8.4-10.2) 03/04/20 07:15 Phosphorus 2.70 mg/dL (2.5-4.5) 03/03/20 04:28 Magnesium 1.70 mg/dL (1.7-2.3) 03/03/20 04:28 Medications & Allergies - Medications Allergies/Adverse Reactions: Allergies diclofenac [Diclofenac] Allergy (Verified 10/05/18 08:11) Rash Home Medications: Home Medications Medication Instructions Recorded Confirmed Last Taken Type Baclofen [Lioresal] 10 mg PO BID 04/02/13 03/02/20 04/02/13 History Acetaminophen [Acetaminophen TAB] 650 mg PO Q4H PRN #1 tablet 02/28/17 03/02/20 Unknown Rx Aspirin [Aspirin BABY CHEW TAB] 81 mg PO DAILY #1 tab.chew 02/28/17 03/02/20 Unknown Rx DAPTOmycin 246 mg IV Q24H #1 vial 02/28/17 03/02/20 Unknown Rx Ferrous Sulfate [Feosol 325 MG tab] 325 mg PO QDAY #1 tablet 02/28/17 03/02/20 Unknown Rx Gabapentin 300 mg PO Q8HR #1 capsule 02/28/17 03/02/20 Unknown Rx Ondansetron [Zofran INJ] 4 mg IV Q8H PRN #1 vial 02/28/17 03/02/20 Unknown Rx Kklplaeohxyk-Hogr-Gdzelvxd,Iso 2.25 gm IV Q6HR #10 froz.piggy 02/28/17 03/02/20 Unknown Rx [Zosyn 2.25 gm/50 ml Galaxy Bag] Sodium Hypochlorite [Dakin's Half 1 applic TP Q12H PRN #1 bottle 02/28/17 03/02/20 Unknown Rx Strength] amLODIPine 10 mg PO DAILY #1 tablet 02/28/17 03/02/20 Unknown Rx cefUROXime [Ceftin] 250 mg PO Q12H #20 tablet 09/10/18 03/02/20 Unknown Rx traMADoL [Ultram] 50 mg PO Q6HR PRN #10 tablet 09/10/18 03/02/20 Unknown Rx Potassium Chloride [K-Dur] 2 tab PO QDAY 30 Days #60 tablet 01/21/19 03/02/20 Unknown Rx Active Medications: Generic Name Dose Route Start Last Admin Trade Name Freq PRN Reason Stop Dose Admin Acetaminophen 650 mg 03/02/20 03:40 Tylenol PO Q4H PRN Pain MILD(1-3)/Fever >100.5/HUTCHINS Dextrose 50 ml 03/02/20 03:40 D50w (25gm) Syringe IV Q30MIN PRN Hypoglycemia Protocol Lactated Ringer's 1,000 mls @ 125 mls/hr 03/02/20 09:00 03/03/20 19:30 Lactated Ringers IV 125 mls/hr DIRECT IDRIS Administration Cefepime HCl 2 gm in 100 mls @ 200 mls/hr 03/03/20 13:00 03/03/20 22:39 Cefepime/Ns 2 Gm/100 Ml IV 200 mls/hr Q12HR IDRIS Administration Protocol Insulin Human Lispro 0 unit 03/02/20 07:30 03/04/20 07:52 Humalog SUB-Q Not Given ACHS IDRIS Protocol Magnesium Hydroxide 30 ml 03/02/20 03:40 Milk Of Magnesia PO Q4H PRN Constipation Morphine Sulfate 2 mg 03/02/20 03:40 Morphine IV Q4H PRN Pain, Moderate (4-6) Ondansetron HCl 4 mg 03/02/20 03:40 Zofran IV Q8H PRN Nausea And Vomiting Potassium Chloride 40 meq 03/05/20 11:00 K-Dur PO 03/05/20 11:01 ONCE ONE Sodium Chloride 10 ml 03/02/20 10:00 03/03/20 22:40 Sodium Chloride Flush Syringe 10 Ml IV Not Given BID IDRIS Sodium Chloride 10 ml 03/02/20 03:40 Sodium Chloride Flush Syringe 10 Ml IV PRN PRN LINE FLUSH
[2020-03-04] MEDS: CEFEPIME/NS 2 GM/100 ML 2 GM/100 ML BAG IV SCH ×2 (10:48→21:12)
[2020-03-04] MEDS ORDERED: POTASSIUM CHLORIDE ER 20 MEQ TAB PO SCH (11:00)
[2020-03-04] MEDS ORDERED: POTASSIUM CHLORIDE ER 20 MEQ TAB PO ONE (18:00)
[2020-03-05 05:55] LABS: Hematocrit 25.8 % (35.5-45.6); Hemoglobin 8.7 gm/dl (11.8-15.2); Mean Corpuscular HGB Conc 34 % (32-34); Mean Corpuscular Volume 94 fl (84-94); Platelet Count 305 K/mm3 (140-440); Red Blood Count 2.74 M/mm3 (3.65-5.03); Red Cell Distribution Width 16.1 % (13.2-15.2)
[2020-03-05 06:05] LABS: Calcium 8.5 mg/dL (8.4-10.2)
[2020-03-05 07:22] LABS: Anisocytosis 1+; Basophils % (Manual) 0.5 % (0.0-1.8); Platelet Estimate Consistent w Auto; Total Cells Counted 200
[2020-03-05] MEDS: INSULIN LISPRO 100 UNIT/ML VIAL 3 mL SUB-Q SCH ×4 (08:00→21:27)
--- NOTE | 2020-03-05 09:04 | Progress Note ---
Assessment and Plan Assessment and plan: Acute hypoxemic respiratory failure. Cont. O2 and Bipap as [id number] indicated. Etiology likely secondary to Sepsis. Sepsis. Pt meets criteria given fever, leukocytosis and dx of UTI. Cont. IV abx. ID following. F/U Cx. Covid negative Toxic metabolic encephalopathy. Cont. treating underlying causes CKD. Etiology likely related to hypertensive nephropathy. Diabetes Mellitus type 2. Tight glycemic control. Sacral and LE Pressure ulcers. Wound care per wound team. hx CVA. Obesity Chronic lymphedema. 03/04/2020. Continue ceftriaxone per ID recommendations. Follow-up blood and urine cultures. COVID-19 testing negative. Patient appears to be at baseline with creatinine. Patient with chronic kidney disease. Creatinine of 2.3 2017. Await renal ultrasound. Patient reports that he would like to sign out AMA. 03/05/2020. Patient with persistent leukocytosis. Blood cultures revealed E. coli. Await sensitivities for E. coli bacteremia. ID following. Await renal ultrasound results History Interval history: 79-year-old man past medical history CKD, CVA, DM 2, obesity, chronic lymphedema admitted to the hospital with fever, generalized weakness, myalgias, confusion. Is brought to the hospital by EMS and was found to be hypoxic in the field. He was admitted with concern for pyelonephritis and COVID-19. Patient appears to be back to his baseline mental status. No new issues overnight. Patient states he feels much better. Patient wants to go home and opted to sign himself out AMA. Hospitalist Physical - Constitutional Vitals: Temp Pulse Resp BP Pulse Ox 98.9 F 96 H 20 127/60 97 03/05/20 05:58 03/05/20 05:58 03/05/20 05:58 03/05/20 05:58 03/05/20 05:58 General appearance: Present: no acute distress, well-nourished, obese - EENT Eyes: Present: PERRL, EOM intact ENT: hearing intact, clear oral mucosa, dentition normal - Neck Neck: Present: supple, normal ROM - Respiratory Respiratory effort: normal Respiratory: bilateral: CTA - Cardiovascular Rhythm: regular Heart Sounds: Present: S1 & S2. Absent: gallop, rub - Extremities Extremities: no ischemia, No edema, Full ROM - Abdominal General gastrointestinal: soft, non-tender, non-distended, normal bowel sounds - Integumentary Integumentary: Present: clear, warm, dry - Neurologic Neurologic: CNII-XII intact, moves all extremities Results - Labs CBC & Chem 7: 03/05/20 05:13 03/05/20 05:13 Labs: Laboratory Last Values WBC 23.6 K/mm3 (4.5-11.0) H 03/05/20 05:13 RBC 2.74 M/mm3 (3.65-5.03) L 03/05/20 05:13 Hgb 8.7 gm/dl (11.8-15.2) L 03/05/20 05:13 Hct 25.8 % (35.5-45.6) L 03/05/20 05:13 MCV 94 fl (84-94) 03/05/20 05:13 MCH 32 pg (28-32) 03/05/20 05:13 MCHC 34 % (32-34) 03/05/20 05:13 RDW 16.1 % (13.2-15.2) H 03/05/20 05:13 Plt Count 305 K/mm3 (140-440) 03/05/20 05:13 Lymph % (Auto) 9.1 % (13.4-35.0) L 03/04/20 07:15 [place] % (Auto) 4.1 % (0.0-7.3) 03/04/20 07:15 Eos % (Auto) 0.9 % (0.0-4.3) 03/04/20 07:15 Baso % (Auto) 0.2 % (0.0-1.8) 03/04/20 07:15 Lymph # (Auto) 2.6 K/mm3 (1.2-5.4) 03/04/20 07:15 [place] # (Auto) 1.2 K/mm3 (0.0-0.8) H 03/04/20 07:15 Eos # (Auto) 0.3 K/mm3 (0.0-0.4) 03/04/20 07:15 Baso # (Auto) 0.1 K/mm3 (0.0-0.1) 03/04/20 07:15 Add Manual Diff Complete 03/05/20 05:13 Total Counted 200 03/05/20 05:13 Seg Neutrophils % 85.7 % (40.0-70.0) H 03/04/20 07:15 Seg Neuts % (Manual) 94.0 % (40.0-70.0) H 03/05/20 05:13 Band Neutrophils % 0 % 03/05/20 05:13 Lymphocytes % (Manual) 2.5 % (13.4-35.0) L 03/05/20 05:13 Reactive Lymphs % (Man) 0 % 03/05/20 05:13 Monocytes % (Manual) 2.0 % (0.0-7.3) 03/05/20 05:13 Eosinophils % (Manual) 1.0 % (0.0-4.3) 03/05/20 05:13 Basophils % (Manual) 0.5 % (0.0-1.8) 03/05/20 05:13 Metamyelocytes % 0 % 03/05/20 05:13 Myelocytes % 0 % 03/05/20 05:13 Promyelocytes % 0 % 03/05/20 05:13 Blast Cells % 0 % 03/05/20 05:13 Nucleated RBC % Not Reportable 03/05/20 05:13 Seg Neutrophils # 24.8 K/mm3 (1.8-7.7) H 03/04/20 07:15 Seg Neutrophils # Man 22.2 K/mm3 (1.8-7.7) H 03/05/20 05:13 Band Neutrophils # 0.0 K/mm3 03/05/20 05:13 Lymphocytes # (Manual) 0.6 K/mm3 (1.2-5.4) L 03/05/20 05:13 Abs React Lymphs (Man) 0.0 K/mm3 03/05/20 05:13 Monocytes # (Manual) 0.5 K/mm3 (0.0-0.8) 03/05/20 05:13 Eosinophils # (Manual) 0.2 K/mm3 (0.0-0.4) 03/05/20 05:13 Basophils # (Manual) 0.1 K/mm3 (0.0-0.1) 03/05/20 05:13 Metamyelocytes # 0.0 K/mm3 03/05/20 05:13 Myelocytes # 0.0 K/mm3 03/05/20 05:13 Promyelocytes # 0.0 K/mm3 03/05/20 05:13 Blast Cells # 0.0 K/mm3 03/05/20 05:13 WBC Morphology Not Reportable 03/05/20 05:13 Hypersegmented Neuts Not Reportable 03/05/20 05:13 Hyposegmented Neuts Not Reportable 03/05/20 05:13 Hypogranular Neuts Not Reportable 03/05/20 05:13 Smudge Cells Not Reportable 03/05/20 05:13 Toxic Granulation Not Reportable 03/05/20 05:13 Toxic Vacuolation Not Reportable 03/05/20 05:13 Dohle Bodies Not Reportable 03/05/20 05:13 Pelger-Huet Anomaly Not Reportable 03/05/20 05:13 Santiago Rods Not Reportable 03/05/20 05:13 Platelet Estimate Consistent w auto 03/05/20 05:13 Clumped Platelets Not Reportable 03/05/20 05:13 Plt Clumps, EDTA Not Reportable 03/05/20 05:13 Large Platelets Not Reportable 03/05/20 05:13 Giant Platelets Not Reportable 03/05/20 05:13 Platelet Satelliting Not Reportable 03/05/20 05:13 Plt Morphology Comment Not Reportable 03/05/20 05:13 RBC Morphology Not Reportable 03/05/20 05:13 Dimorphic RBCs Not Reportable 03/05/20 05:13 Polychromasia Not Reportable 03/05/20 05:13 Hypochromasia Not Reportable 03/05/20 05:13 Poikilocytosis Not Reportable 03/05/20 05:13 Anisocytosis 1+ 03/05/20 05:13 Microcytosis Not Reportable 03/05/20 05:13 Macrocytosis Not Reportable 03/05/20 05:13 Spherocytes Not Reportable 03/05/20 05:13 Pappenheimer Bodies Not Reportable 03/05/20 05:13 Sickle Cells Not Reportable 03/05/20 05:13 Target Cells Not Reportable 03/05/20 05:13 Tear Drop Cells Not Reportable 03/05/20 05:13 Ovalocytes Not Reportable 03/05/20 05:13 Helmet Cells Not Reportable 03/05/20 05:13 [place] Bodies Not Reportable 03/05/20 05:13 [place] Rings Not Reportable 03/05/20 05:13 Louin Cells Not Reportable 03/05/20 05:13 Bite Cells Not Reportable 03/05/20 05:13 Crenated Cell Not Reportable 03/05/20 05:13 Elliptocytes Not Reportable 03/05/20 05:13 Acanthocytes (Spur) Not Reportable 03/05/20 05:13 Rouleaux Not Reportable 03/05/20 05:13 Hemoglobin C Crystals Not Reportable 03/05/20 05:13 Schistocytes Not Reportable 03/05/20 05:13 Malaria parasites Not Reportable 03/05/20 05:13 Isauro Bodies Not Reportable 03/05/20 05:13 Hem Pathologist Commnt No 03/05/20 05:13 PT 15.8 Sec. (12.2-14.9) H 03/03/20 04:28 INR 1.23 (0.87-1.13) H 03/03/20 04:28 APTT 34.9 Sec. (24.2-36.6) 03/02/20 01:52 Sodium 142 mmol/L (137-145) 03/05/20 05:13 Potassium 3.0 mmol/L (3.6-5.0) L 03/05/20 05:13 Chloride 105.9 mmol/L (98-107) 03/05/20 05:13 Carbon Dioxide 19 mmol/L (22-30) L 03/05/20 05:13 Anion Gap 20 mmol/L 03/05/20 05:13 BUN 48 mg/dL (9-20) H 03/05/20 05:13 Creatinine 2.1 mg/dL (0.8-1.3) H 03/05/20 05:13 Estimated GFR 37 ml/min 03/05/20 05:13 BUN/Creatinine Ratio 23 % 03/05/20 05:13 Glucose 119 mg/dL (75-100) H 03/05/20 05:13 POC Glucose 115 (70-105) H 03/05/20 08:04 Lactic Acid 0.60 mmol/L (0.7-2.0) L 03/02/20 08:03 Calcium 8.5 mg/dL (8.4-10.2) 03/05/20 05:13 Phosphorus 2.10 mg/dL (2.5-4.5) L 03/05/20 05:13 Magnesium 1.50 mg/dL (1.7-2.3) L 03/04/20 Unknown Ferritin 601.2 ng/mL (30.0-300.0) H 03/02/20 01:52 Total Bilirubin 0.40 mg/dL (0.1-1.2) 03/03/20 04:28 AST 24 units/L (5-40) 03/03/20 04:28 ALT 15 units/L (7-56) 03/03/20 04:28 Alkaline Phosphatase 132 units/L (35-129) H 03/03/20 04:28 Lactate Dehydrogenase 251 units/L (91-180) H 03/02/20 08:03 Total Creatine Kinase 34 units/L (55-170) L 03/02/20 01:52 C-Reactive Protein 2.00 mg/dL (0.00-1.30) H 03/02/20 01:52 C-Reactive Protein 2.20 mg/dL (0.00-1.30) H 03/02/20 01:52 Total Protein 6.0 g/dL (6.3-8.2) L 03/03/20 04:28 Albumin 2.6 g/dL (3.9-5) L 03/03/20 04:28 Albumin/Globulin Ratio 0.8 % 03/03/20 04:28 Procalcitonin 3.07 ng/mL (<0.15) 03/02/20 01:52 TSH 0.885 mlU/mL (0.270-4.200) 03/02/20 01:52 Urine Color Yellow (Yellow) 03/02/20 Unknown Urine Turbidity Cloudy (Clear) 03/02/20 Unknown Urine pH 5.0 (5.0-7.0) 03/02/20 Unknown Ur Specific [place] 1.010 (1.003-1.030) 03/02/20 Unknown Urine Protein 100 mg/dl mg/dL (Negative) 03/02/20 Unknown Urine Glucose (UA) Neg mg/dL (Negative) 03/02/20 Unknown Urine Ketones Neg mg/dL (Negative) 03/02/20 Unknown Urine Blood Sm (Negative) 03/02/20 Unknown Urine Nitrite Pos (Negative) 03/02/20 Unknown Urine Bilirubin Neg (Negative) 03/02/20 Unknown Urine Urobilinogen < 2.0 mg/dL (<2.0) 03/02/20 Unknown Ur Leukocyte Esterase Lg (Negative) 03/02/20 Unknown Urine WBC (Auto) > 182.0 /HPF (0.0-6.0) H 03/02/20 Unknown Urine RBC (Auto) 15.0 /HPF (0.0-6.0) 03/02/20 Unknown U Epithel Cells (Auto) 2.0 /HPF (0-13.0) 03/02/20 Unknown Urine Bacteria (Auto) 4+ /HPF (Negative) 03/02/20 Unknown Hyaline Casts 1 /LPF 03/02/20 Unknown Urine Mucus Few /HPF 03/02/20 Unknown Coronavirus (PCR) Negative (Negative) 03/02/20 10:44 Microbiology: Microbiology 03/02/20 Unknown Urine,Catheterized - Straight Catheter Urine Culture - Fin al 03/02/20 01:52 Peripheral/Venous Blood Culture - Preliminary Escherichia Coli Coag Negative Staphylococcus 03/02/20 02:19 Peripheral/Venous Blood Culture - Preliminary Escherichia Coli Cunningham/IV: Voiding Method Condom Catheter IV Catheter Type [Left INT / Saline Lock Antecubital] Active Medications - Current Medications Current Medications: Generic Name Dose Route Start Last Admin Trade Name Freq PRN Reason Stop Dose Admin Acetaminophen 650 mg 03/02/20 03:40 Tylenol PO Q4H PRN Pain MILD(1-3)/Fever >100.5/HUTCHINS Dextrose 50 ml 03/02/20 03:40 D50w (25gm) Syringe IV Q30MIN PRN Hypoglycemia Protocol Lactated Ringer's 1,000 mls @ 125 mls/hr 03/02/20 09:00 03/03/20 19:30 Lactated Ringers IV 125 mls/hr DIRECT IDRIS Administration Cefepime HCl 2 gm in 100 mls @ 200 mls/hr 03/03/20 13:00 03/04/20 21:12 Cefepime/Ns 2 Gm/100 Ml IV 200 mls/hr Q12HR IDRIS Administration Protocol Insulin Human Lispro 0 unit 03/02/20 07:30 03/05/20 08:00 Humalog SUB-Q Not Given ACHS IDRIS Protocol Magnesium Hydroxide 30 ml 03/02/20 03:40 Milk Of Magnesia PO Q4H PRN Constipation Morphine Sulfate 2 mg 03/02/20 03:40 Morphine IV Q4H PRN Pain, Moderate (4-6) Ondansetron HCl 4 mg 03/02/20 03:40 Zofran IV Q8H PRN Nausea And Vomiting Sodium Chloride 10 ml 03/02/20 10:00 03/04/20 21:12 Sodium Chloride Flush Syringe 10 Ml IV Not Given BID IDRIS Sodium Chloride 10 ml 03/02/20 03:40 Sodium Chloride Flush Syringe 10 Ml IV PRN PRN LINE FLUSH Nutrition/Malnutrition Assess - Dietary Evaluation Nutrition/Malnutrition Findings: Nutrition Notes Start: 03/02/20 10 :33 Freq: Status: Active Protocol: Document 03/02/20 10:33 LM (Rec: 03/02/20 10:43 LM [id number]) Nutrition Notes Need for Assessment generated from: MD Order Initial or Follow up Assessment Current Diagnosis CKD(stage I-IV),Diabetes, Sepsis,Hypertension Other Pertinent Diagnosis Suspected COVID-19, UTI, multiple skin ulcers Current Diet Cardiac/consistent CHO Labs/Tests K 2.8 BUN 59 Cr 2.3 Pertinent Medications Reviewed Height 5 ft 8 in Weight 121.5 kg [place] Body Weight (kg) 70.00 BMI 40.7 Weight Status Morbidly Obese Subjective/Other Information MD consult for diet education. Unable to reach pt by phone. Pt has several skin ulcers, belem score is 14. Pt also has LE edema. Burn Absent Trauma Absent Minimum of two criteria No Fluid Accumulation Mild (non-severe) #1 Nutrition Diagnosis Increased nutrient needs ( specify in comment below) Comments: Protein Etiology Wound healing As Evidenced by Signs and Symptoms Pt with multiple skin ulcers Is patient on ventilator? No Is Patient Ambulatory and/or Out of Bed No REE-([place]-confined to bed) 2279.724 Kcal/Kg value to use for calculation 15 Approximate Energy Requirements Using 1823 kcal/Kg Calculation Used for Recommendations Kcal/kg Additional Notes Protein: 77-144g (0.8-1.5g/kg using AdjBW of 96kg) Fluid: 1ml/kcal Nutrition Intervention Change Diet Order: Continue Goal #1 Meet at least 75% of energy and protein needs Goal #2 Wound healing Anticipated Discharge Needs: cardiac/consistent CHO Follow-Up By: 03/13/20 Additional Comments F/U for intakes, diet education
--- NOTE | 2020-03-05 09:46 | Progress Note ---
Assessment and Plan ALEJANDRO on CKD likely prerenal azoetimia Metabolic acidoses Hypokalemia hypomagnesemia COVID-19 rule out UTI Cr stable monitor. On IVFs Replace K PRN urine lytes, protein and eos ordered renal US ordered, pending strict I&O Daily weight renally dose meds Avoid nephrotoxins Subjective Date of service: 03/05/20 Principal diagnosis: ALEJANDRO Interval history: Making urine. Objective - Exam Narrative Exam: General appearance: well-developed EENT: ATNC, PERRL Neck: no JVD, no carotid bruit Respiratory: Present: Clear to Ascultation. Absent: Rales, Ronchi Cardiology: regular, S1S2 Gastrointestinal: normoactive bowel sounds, no absent bowel sounds, no tenderness, no distended, no masses Integumentary: no rash, warm and dry Neurologic: no focal deficit, no asterixis, alert and oriented x3 Musculoskeletal: other (no edema in BLE) Psychiatric: cooperative - Vital Signs Vital signs: Vital Signs - 12hr 03/04/20 03/05/20 23:56 05:58 Temperature 99.7 F H 98.9 F Pulse Rate 103 H 96 H Respiratory 22 20 Rate Blood Pressure 174/80 127/60 O2 Sat by Pulse 97 97 Oximetry - Lab 03/05/20 05:13 03/05/20 05:13 Most recent lab results Calcium 8.5 mg/dL (8.4-10.2) 03/05/20 05:13 Phosphorus 2.10 mg/dL (2.5-4.5) L 03/05/20 05:13 Magnesium 1.50 mg/dL (1.7-2.3) L 03/04/20 Unknown Medications & Allergies - Medications Allergies/Adverse Reactions: Allergies diclofenac [Diclofenac] Allergy (Verified 10/05/18 08:11) Rash Home Medications: Home Medications Medication Instructions Recorded Confirmed Last Taken Type Baclofen [Lioresal] 10 mg PO BID 04/02/13 03/02/20 04/02/13 History Acetaminophen [Acetaminophen TAB] 650 mg PO Q4H PRN #1 tablet 02/28/17 03/02/20 Unknown Rx Aspirin [Aspirin BABY CHEW TAB] 81 mg PO DAILY #1 tab.chew 02/28/17 03/02/20 Unknown Rx DAPTOmycin 246 mg IV Q24H #1 vial 02/28/17 03/02/20 Unknown Rx Ferrous Sulfate [Feosol 325 MG tab] 325 mg PO QDAY #1 tablet 02/28/17 03/02/20 Unknown Rx Gabapentin 300 mg PO Q8HR #1 capsule 02/28/17 03/02/20 Unknown Rx Ondansetron [Zofran INJ] 4 mg IV Q8H PRN #1 vial 02/28/17 03/02/20 Unknown Rx Jypyobhvxrxe-Ropj-Ozrcxftp,Iso 2.25 gm IV Q6HR #10 froz.piggy 02/28/17 03/02/20 Unknown Rx [Zosyn 2.25 gm/50 ml Galaxy Bag] Sodium Hypochlorite [Dakin's Half 1 applic TP Q12H PRN #1 bottle 02/28/17 03/02/20 Unknown Rx Strength] amLODIPine 10 mg PO DAILY #1 tablet 02/28/17 03/02/20 Unknown Rx cefUROXime [Ceftin] 250 mg PO Q12H #20 tablet 09/10/18 03/02/20 Unknown Rx traMADoL [Ultram] 50 mg PO Q6HR PRN #10 tablet 09/10/18 03/02/20 Unknown Rx Potassium Chloride [K-Dur] 2 tab PO QDAY 30 Days #60 tablet 01/21/19 03/02/20 Unknown Rx Active Medications: Generic Name Dose Route Start Last Admin Trade Name Freq PRN Reason Stop Dose Admin Acetaminophen 650 mg 03/02/20 03:40 Tylenol PO Q4H PRN Pain MILD(1-3)/Fever >100.5/HUTCHINS Dextrose 50 ml 03/02/20 03:40 D50w (25gm) Syringe IV Q30MIN PRN Hypoglycemia Protocol Lactated Ringer's 1,000 mls @ 125 mls/hr 03/02/20 09:00 03/03/20 19:30 Lactated Ringers IV 125 mls/hr DIRECT IDRIS Administration Cefepime HCl 2 gm in 100 mls @ 200 mls/hr 03/03/20 13:00 03/04/20 21:12 Cefepime/Ns 2 Gm/100 Ml IV 200 mls/hr Q12HR IDRIS Administration Protocol Insulin Human Lispro 0 unit 03/02/20 07:30 03/05/20 08:00 Humalog SUB-Q Not Given ACHS IDRIS Protocol Magnesium Hydroxide 30 ml 03/02/20 03:40 Milk Of Magnesia PO Q4H PRN Constipation Morphine Sulfate 2 mg 03/02/20 03:40 Morphine IV Q4H PRN Pain, Moderate (4-6) Ondansetron HCl 4 mg 03/02/20 03:40 Zofran IV Q8H PRN Nausea And Vomiting Potassium Chloride 40 meq 03/05/20 10:00 K-Dur PO 03/05/20 10:01 ONCE ONE Sodium Chloride 10 ml 03/02/20 10:00 03/04/20 21:12 Sodium Chloride Flush Syringe 10 Ml IV Not Given BID IDRIS Sodium Chloride 10 ml 03/02/20 03:40 Sodium Chloride Flush Syringe 10 Ml IV PRN PRN LINE FLUSH
[2020-03-05] MEDS ORDERED: POTASSIUM CHLORIDE ER 20 MEQ TAB PO NR (10:00)
[2020-03-05] MEDS: CEFEPIME/NS 2 GM/100 ML 2 GM/100 ML BAG IV SCH ×2 (10:12→21:26)
--- NOTE | 2020-03-06 07:10 | Ultrasound Report ---
ULTRASOUND RENAL INDICATION: renal failure. COMPARISON: No relevant prior imaging study available. FINDINGS: RIGHT KIDNEY: Size: 10.9 cm. Echogenicity: Increased. Cortical thickness: Normal. Stones: None. Hydronephrosis: None. Cyst or mass: Cysts are noted. The largest measures 4.6 cm.. LEFT KIDNEY: Size: 9.7 cm. Echogenicity: Increased. Cortical thickness: Normal. Stones: None. Hydronephrosis: None. Cyst or mass: Several cysts are noted. The largest measures approximately 3 cm.. Urinary Bladder: No significant abnormality. Free Fluid: None. Additional Findings: None. IMPRESSION 1. There is increased echogenicity in the kidneys characteristic of medical renal disease 2. There are bilateral renal cysts.. Signer Name: Shine Durant MD Signed: 03/06/2020 7:05 AM Workstation Name: [id number]
[2020-03-06] MEDS: INSULIN LISPRO 100 UNIT/ML VIAL 3 mL SUB-Q SCH ×4 (08:06→22:43)
[2020-03-06 08:31] LABS: Basophils # (Auto) 0.1 K/mm3 (0.0-0.1); Basophils % (Auto) 0.5 % (0.0-1.8); Eosinophils # (Auto) 0.3 K/mm3 (0.0-0.4); Eosinophils % (Auto) 1.7 % (0.0-4.3); Hematocrit 27.7 % (35.5-45.6); Hemoglobin 8.8 gm/dl (11.8-15.2); Lymphocytes # (Auto) 2.3 K/mm3 (1.2-5.4); Lymphocytes % (Auto) 12.2 % (13.4-35.0); Mean Corpuscular HGB Conc 32 % (32-34); Mean Corpuscular Volume 98 fl (84-94); Monocytes % (Auto) 5.4 % (0.0-7.3); Platelet Count 306 K/mm3 (140-440); Red Blood Count 2.83 M/mm3 (3.65-5.03); Red Cell Distribution Width 16.8 % (13.2-15.2)
[2020-03-06 08:52] LABS: Calcium 8.8 mg/dL (8.4-10.2)
[2020-03-06] MEDS: CEFEPIME/NS 2 GM/100 ML 2 GM/100 ML BAG IV SCH (10:42)
[2020-03-06] MEDS: POTASSIUM CHLORIDE ER 20 MEQ TAB PO SCH ×2 (12:43→15:42)
--- NOTE | 2020-03-06 14:23 | Progress Note ---
Assessment and Plan Cultures: Blood culture 03/02/2020 ESBL E. coli COVID-19 negative A/P: 79-year-old man past medical history CKD, CVA, DM 2, obesity, chronic lymphedema family hypoxic with fevers, concern for bronchitis versus COVID-19. #Acute hypoxemic respiratory failure: Possibly secondary to COVID-19 infection. Found to be hypoxic with EMS. #Pyuria: With associated altered mental status and fevers, likely UTI. #CKD: Renally dose antibiotics #Diabetes: tight glycemic control for best outcomes. #Pressure ulcers: Sacrum, bilateral lower extremities. Recs: -Given ESBL in blood, change cefepime to ertapenem 1 g every 24 hours -We will plan on 2 weeks of above ertapenem. Obtain repeat blood cultures in the morning to document clearance. Thank you for the consult, we will continue to follow. Susan Deutsch MD O: [phone] F: [phone] Subjective Date of service: 03/06/20 Principal diagnosis: ALEJANDRO Interval history: Afebrile male, white count remains elevated at 19, which is an improvement from its peak. Blood cultures with an ESBL E. coli Objective - Exam Narrative Exam: Physical exam deferred due to PPE conservation strategy. Please refer to primary team's note. - Constitutional Vitals: Vital Signs Temp Pulse Resp BP Pulse Ox 97.9 F 98 H 18 163/82 98 03/06/20 11:46 03/06/20 11:46 03/06/20 11:46 03/06/20 11:46 03/06/20 11:46 Temperature -Last 24 Hours Temperature 97.9 F Temperature 98.4 F Temperature 99.1 F Temperature 97.2 F - Labs CBC & Chem 7: 03/06/20 08:06 03/06/20 08:06 Labs: Abnormal lab results 03/06/20 03/06/20 03/06/20 Range/Units 08:06 08:06 Unknown WBC 18.7 H (4.5-11.0) K/mm3 RBC 2.83 L (3.65-5.03) M/mm3 Hgb 8.8 L (11.8-15.2) gm/dl Hct 27.7 L (35.5-45.6) % MCV 98 H (84-94) fl RDW 16.8 H (13.2-15.2) % Lymph % (Auto) 12.2 L (13.4-35.0) % Teller # (Auto) 1.0 H (0.0-0.8) K/mm3 Seg Neutrophils % 80.2 H (40.0-70.0) % Seg Neutrophils # 15.0 H (1.8-7.7) K/mm3 Potassium 2.8 L* (3.6-5.0) mmol/L Chloride 108.5 H (98-107) mmol/L Carbon Dioxide 16 L (22-30) mmol/L BUN 45 H (9-20) mg/dL Creatinine 2.2 H (0.8-1.3) mg/dL Magnesium 1.50 L (1.7-2.3) mg/dL
--- NOTE | 2020-03-06 15:17 | Progress Note ---
Assessment and Plan Assessment: ALEJANDRO on CKD likely prerenal azoetimia Metabolic acidoses Hypokalemia Hypomagnesemia UTI Plan: Renal labs reviewed, serum creatinine 2.2 today, yesterday's was 2.1, has good UOP On IVFs with LR@ 125 ml/hr Replace potassium as needed Urine eosinophils-pending Renal US ordered-pending Strict I&O monitoring Obtain daily weights Renally dose meds Avoid nephrotoxic agents Continue to monitor Subjective Date of service: 03/06/20 Principal diagnosis: ALEJANDRO Interval history: Patient seen lying in bed. Patient requesting heat be turned on more, currently set at 80, advised that i will get nurse to assist him. Objective - Vital Signs Vital signs: Vital Signs - 12hr 03/06/20 03/06/20 03/06/20 05:13 10:00 11:46 Temperature 98.4 F 97.9 F Pulse Rate 96 H 98 H Respiratory 24 18 18 Rate Blood Pressure 143/62 163/82 O2 Sat by Pulse 100 98 98 Oximetry - General Appearance General appearance: well-developed, fatigue EENT: ATNC, PERRL, hearing intact, vision intact Neck: no JVD, supple Respiratory: Present: Decreased Breath Sounds Cardiology: S1S2 Gastrointestinal: normoactive bowel sounds Integumentary: warm and dry Neurologic: alert and oriented x3 Musculoskeletal: other (No edema) - Lab 03/06/20 08:06 03/06/20 08:06 Most recent lab results Calcium 8.8 mg/dL (8.4-10.2) 03/06/20 08:06 Phosphorus 2.10 mg/dL (2.5-4.5) L 03/05/20 05:13 Magnesium 1.50 mg/dL (1.7-2.3) L 03/06/20 Unknown Medications & Allergies - Medications Allergies/Adverse Reactions: Allergies diclofenac [Diclofenac] Allergy (Verified 10/05/18 08:11) Rash Home Medications: Home Medications Medication Instructions Recorded Confirmed Last Taken Type RX: Baclofen [Lioresal] 10 mg PO BID 04/02/13 03/02/20 04/02/13 History Chcpkqkoqxdn-Lkch-Bzmcgncc,Iso 2.25 gm IV Q6HR #10 froz.piggy 02/28/17 03/02/20 Unknown Rx [Zosyn 2.25 gm/50 ml Galaxy Bag] RX: Acetaminophen [Acetaminophen 650 mg PO Q4H PRN #1 tablet 02/28/17 03/02/20 Unknown Rx TAB] RX: Aspirin [Aspirin BABY CHEW TAB] 81 mg PO DAILY #1 tab.chew 02/28/17 03/02/20 Unknown Rx RX: DAPTOmycin 246 mg IV Q24H #1 vial 02/28/17 03/02/20 Unknown Rx RX: Ferrous Sulfate [Feosol 325 MG 325 mg PO QDAY #1 tablet 02/28/17 03/02/20 Unknown Rx tab] RX: Gabapentin 300 mg PO Q8HR #1 capsule 02/28/17 03/02/20 Unknown Rx RX: Ondansetron [Zofran INJ] 4 mg IV Q8H PRN #1 vial 02/28/17 03/02/20 Unknown Rx RX: Sodium Hypochlorite [Dakin's 1 applic TP Q12H PRN #1 bottle 02/28/17 03/02/20 Unknown Rx Half Strength] RX: amLODIPine 10 mg PO DAILY #1 tablet 02/28/17 03/02/20 Unknown Rx cefUROXime [Ceftin] 250 mg PO Q12H #20 tablet 09/10/18 03/02/20 Unknown Rx traMADoL [Ultram] 50 mg PO Q6HR PRN #10 tablet 09/10/18 03/02/20 Unknown Rx RX: Potassium Chloride [K-Dur] 2 tab PO QDAY 30 Days #60 tablet 01/21/19 03/02/20 Unknown Rx Active Medications: Generic Name Dose Route Start Last Admin Trade Name Freq PRN Reason Stop Dose Admin Acetaminophen 650 mg 03/02/20 03:40 Tylenol PO Q4H PRN Pain MILD(1-3)/Fever >100.5/HUTCHINS Dextrose 50 ml 03/02/20 03:40 D50w (25gm) Syringe IV Q30MIN PRN Hypoglycemia Protocol Lactated Ringer's 1,000 mls @ 125 mls/hr 03/02/20 09:00 03/03/20 19:30 Lactated Ringers IV 125 mls/hr DIRECT IDRIS Administration Ertapenem 1 gm/ Sodium 50 mls @ 100 mls/hr 03/06/20 15:30 Chloride IV QDAY IDRIS Insulin Human Lispro 0 unit 03/02/20 07:30 03/06/20 12:44 Humalog SUB-Q Not Given ACHS [facility] Protocol Magnesium Hydroxide 30 ml 03/02/20 03:40 Milk Of Magnesia PO Q4H PRN Constipation Morphine Sulfate 2 mg 03/02/20 03:40 Morphine IV Q4H PRN Pain, Moderate (4-6) Ondansetron HCl 4 mg 03/02/20 03:40 Zofran IV Q8H PRN Nausea And Vomiting Sodium Chloride 10 ml 03/02/20 10:00 03/06/20 10:42 Sodium Chloride Flush Syringe 10 Ml IV 10 ml BID IDRIS Administration Sodium Chloride 10 ml 03/02/20 03:40 Sodium Chloride Flush Syringe 10 Ml IV PRN PRN LINE FLUSH
[2020-03-06] MEDS: LACTATED RINGERS 1,000 ML IV SCH (15:42)
[2020-03-06] MEDS: ERTAPENEM 1 GM in SODIUM CHLORIDE 0.9% 50 ML IV SCH (15:47)
--- NOTE | 2020-03-06 17:28 | Progress Note ---
Assessment and Plan Assessment and plan: --Covid negative --Severe hypokalemia; potassium of 2.8 Replenished with KCl 40 mEq p.o. 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 Will monitor renal function avoid nephrotoxin, nephrology following --Diabetes Mellitus type 2; Accu-Chek sliding scale coverage ADA diet Long-acting insulin as needed, check hemoglobin A1c Sacral and LE Pressure ulcers. Wound care per wound team. --hx CVA; supportive care --Morbid obesity: BMI 40.4, supportive care Patient needs weight reduction program when medically stable --Chronic lymphedema; supportive care We will closely monitor the patient and adjust management as needed [employer] He[employer] Installer recommendations noted and appreciated 03/04/2020. Continue ceftriaxone per ID recommendations. Follow-up blood and urine cultures. COVID-19 testing negative. Patient appears to be at baseline with creatinine. Patient with chronic kidney disease. Creatinine of 2.3 2016. Await renal ultrasound. Pt reports that he would like to sign out AMA. 03/05/2020. Patient with persistent leukocytosis. Blood cultures revealed E. coli. Await sensitivities for E. coli bacteremia. ID following. Await renal ultrasound results 03/06; urine cultures positive for ESBL E. coli, ID recommendations noted, antibiotics adjusted to ertapenem, contact isolation History Interval history: I have seen and examined the patient at the bedside this morning Patient's chart and medications reviewed. I also reviewed the morning labs severe hypokalemia with potassium of 2.8 Patient has no new complaints Vital signs noted Hospitalist Physical - Constitutional Vitals: Temp Pulse Resp BP Pulse Ox 97.9 F 98 H 18 163/82 98 03/06/20 11:46 03/06/20 11:46 03/06/20 11:46 03/06/20 11:46 03/06/20 11:46 General appearance: Present: no acute distress, well-nourished, obese (Morbidly obese) - EENT Eyes: Present: PERRL, EOM intact - Neck Neck: Present: supple, normal ROM - Respiratory Respiratory effort: normal Respiratory: bilateral: diminished, rhonchi, negative: rales, wheezing - Cardiovascular Rhythm: regular Heart Sounds: Present: S1 & S2 - Extremities Extremities: no ischemia, No edema - Abdominal General gastrointestinal: soft, non-tender, non-distended, normal bowel sounds - Integumentary Integumentary: Present: clear, warm - Psychiatric Psychiatric: appropriate mood/affect, cooperative - Neurologic Neurologic: CNII-XII intact, moves all extremities Results - Labs CBC & Chem 7: 03/06/20 08:06 03/06/20 08:06 Labs: Laboratory Last Values WBC 18.7 K/mm3 (4.5-11.0) H 03/06/20 08:06 RBC 2.83 M/mm3 (3.65-5.03) L 03/06/20 08:06 Hgb 8.8 gm/dl (11.8-15.2) L 03/06/20 08:06 Hct 27.7 % (35.5-45.6) L 03/06/20 08:06 MCV 98 fl (84-94) H 03/06/20 08:06 MCH 31 pg (28-32) 03/06/20 08:06 MCHC 32 % (32-34) 03/06/20 08:06 RDW 16.8 % (13.2-15.2) H 03/06/20 08:06 Plt Count 306 K/mm3 (140-440) 03/06/20 08:06 Lymph % (Auto) 12.2 % (13.4-35.0) L 03/06/20 08:06 [place] % (Auto) 5.4 % (0.0-7.3) 03/06/20 08:06 Eos % (Auto) 1.7 % (0.0-4.3) 03/06/20 08:06 Baso % (Auto) 0.5 % (0.0-1.8) 03/06/20 08:06 Lymph # (Auto) 2.3 K/mm3 (1.2-5.4) 03/06/20 08:06 [place] # (Auto) 1.0 K/mm3 (0.0-0.8) H 03/06/20 08:06 Eos # (Auto) 0.3 K/mm3 (0.0-0.4) 03/06/20 08:06 Baso # (Auto) 0.1 K/mm3 (0.0-0.1) 03/06/20 08:06 Add Manual Diff Complete 03/05/20 05:13 Total Counted 200 03/05/20 05:13 Seg Neutrophils % 80.2 % (40.0-70.0) H 03/06/20 08:06 Seg Neuts % (Manual) 94.0 % (40.0-70.0) H 03/05/20 05:13 Band Neutrophils % 0 % 03/05/20 05:13 Lymphocytes % (Manual) 2.5 % (13.4-35.0) L 03/05/20 05:13 Reactive Lymphs % (Man) 0 % 03/05/20 05:13 Monocytes % (Manual) 2.0 % (0.0-7.3) 03/05/20 05:13 Eosinophils % (Manual) 1.0 % (0.0-4.3) 03/05/20 05:13 Basophils % (Manual) 0.5 % (0.0-1.8) 03/05/20 05:13 Metamyelocytes % 0 % 03/05/20 05:13 Myelocytes % 0 % 03/05/20 05:13 Promyelocytes % 0 % 03/05/20 05:13 Blast Cells % 0 % 03/05/20 05:13 Nucleated RBC % Not Reportable 03/05/20 05:13 Seg Neutrophils # 15.0 K/mm3 (1.8-7.7) H 03/06/20 08:06 Seg Neutrophils # Man 22.2 K/mm3 (1.8-7.7) H 03/05/20 05:13 Band Neutrophils # 0.0 K/mm3 03/05/20 05:13 Lymphocytes # (Manual) 0.6 K/mm3 (1.2-5.4) L 03/05/20 05:13 Abs React Lymphs (Man) 0.0 K/mm3 03/05/20 05:13 Monocytes # (Manual) 0.5 K/mm3 (0.0-0.8) 03/05/20 05:13 Eosinophils # (Manual) 0.2 K/mm3 (0.0-0.4) 03/05/20 05:13 Basophils # (Manual) 0.1 K/mm3 (0.0-0.1) 03/05/20 05:13 Metamyelocytes # 0.0 K/mm3 03/05/20 05:13 Myelocytes # 0.0 K/mm3 03/05/20 05:13 Promyelocytes # 0.0 K/mm3 03/05/20 05:13 Blast Cells # 0.0 K/mm3 03/05/20 05:13 WBC Morphology Not Reportable 03/05/20 05:13 Hypersegmented Neuts Not Reportable 03/05/20 05:13 Hyposegmented Neuts Not Reportable 03/05/20 05:13 Hypogranular Neuts Not Reportable 03/05/20 05:13 Smudge Cells Not Reportable 03/05/20 05:13 Toxic Granulation Not Reportable 03/05/20 05:13 Toxic Vacuolation Not Reportable 03/05/20 05:13 Dohle Bodies Not Reportable 03/05/20 05:13 Pelger-Huet Anomaly Not Reportable 03/05/20 05:13 Santiago Rods Not Reportable 03/05/20 05:13 Platelet Estimate Consistent w auto 03/05/20 05:13 Clumped Platelets Not Reportable 03/05/20 05:13 Plt Clumps, EDTA Not Reportable 03/05/20 05:13 Large Platelets Not Reportable 03/05/20 05:13 Giant Platelets Not Reportable 03/05/20 05:13 Platelet Satelliting Not Reportable 03/05/20 05:13 Plt Morphology Comment Not Reportable 03/05/20 05:13 RBC Morphology Not Reportable 03/05/20 05:13 Dimorphic RBCs Not Reportable 03/05/20 05:13 Polychromasia Not Reportable 03/05/20 05:13 Hypochromasia Not Reportable 03/05/20 05:13 Poikilocytosis Not Reportable 03/05/20 05:13 Anisocytosis 1+ 03/05/20 05:13 Microcytosis Not Reportable 03/05/20 05:13 Macrocytosis Not Reportable 03/05/20 05:13 Spherocytes Not Reportable 03/05/20 05:13 Pappenheimer Bodies Not Reportable 03/05/20 05:13 Sickle Cells Not Reportable 03/05/20 05:13 Target Cells Not Reportable 03/05/20 05:13 Tear Drop Cells Not Reportable 03/05/20 05:13 Ovalocytes Not Reportable 03/05/20 05:13 Helmet Cells Not Reportable 03/05/20 05:13 Smith-[place] John Bodies Not Reportable 03/05/20 05:13 [place] Rings Not Reportable 03/05/20 05:13 Luis Alfredo Cells Not Reportable 03/05/20 05:13 Bite Cells Not Reportable 03/05/20 05:13 Crenated Cell Not Reportable 03/05/20 05:13 Elliptocytes Not Reportable 03/05/20 05:13 Acanthocytes (Spur) Not Reportable 03/05/20 05:13 Rouleaux Not Reportable 03/05/20 05:13 Hemoglobin C Crystals Not Reportable 03/05/20 05:13 Schistocytes Not Reportable 03/05/20 05:13 Malaria parasites Not Reportable 03/05/20 05:13 Isauro Bodies Not Reportable 03/05/20 05:13 Hem Pathologist Commnt No 03/05/20 05:13 PT 15.8 Sec. (12.2-14.9) H 03/03/20 04:28 INR 1.23 (0.87-1.13) H 03/03/20 04:28 APTT 34.9 Sec. (24.2-36.6) 03/02/20 01:52 Sodium 145 mmol/L (137-145) 03/06/20 08:06 Potassium 2.8 mmol/L (3.6-5.0) L* 03/06/20 08:06 Chloride 108.5 mmol/L (98-107) H 03/06/20 08:06 Carbon Dioxide 16 mmol/L (22-30) L 03/06/20 08:06 Anion Gap 23 mmol/L 03/06/20 08:06 BUN 45 mg/dL (9-20) H 03/06/20 08:06 Creatinine 2.2 mg/dL (0.8-1.3) H 03/06/20 08:06 Estimated GFR 35 ml/min 03/06/20 08:06 BUN/Creatinine Ratio 20 % 03/06/20 08:06 Glucose 81 mg/dL (75-100) 03/06/20 08:06 POC Glucose 89 (70-105) 03/06/20 12:05 Lactic Acid 0.60 mmol/L (0.7-2.0) L 03/02/20 08:03 Calcium 8.8 mg/dL (8.4-10.2) 03/06/20 08:06 Phosphorus 2.10 mg/dL (2.5-4.5) L 03/05/20 05:13 Magnesium 1.50 mg/dL (1.7-2.3) L 03/06/20 Unknown Ferritin 601.2 ng/mL (30.0-300.0) H 03/02/20 01:52 Total Bilirubin 0.40 mg/dL (0.1-1.2) 03/03/20 04:28 AST 24 units/L (5-40) 03/03/20 04:28 ALT 15 units/L (7-56) 03/03/20 04:28 Alkaline Phosphatase 132 units/L (35-129) H 03/03/20 04:28 Lactate Dehydrogenase 251 units/L (91-180) H 03/02/20 08:03 Total Creatine Kinase 34 units/L (55-170) L 03/02/20 01:52 C-Reactive Protein 2.00 mg/dL (0.00-1.30) H 03/02/20 01:52 C-Reactive Protein 2.20 mg/dL (0.00-1.30) H 03/02/20 01:52 Total Protein 6.0 g/dL (6.3-8.2) L 03/03/20 04:28 Albumin 2.6 g/dL (3.9-5) L 03/03/20 04:28 Albumin/Globulin Ratio 0.8 % 03/03/20 04:28 Procalcitonin 3.07 ng/mL (<0.15) 03/02/20 01:52 TSH 0.885 mlU/mL (0.270-4.200) 03/02/20 01:52 Urine Color Yellow (Yellow) 03/02/20 Unknown Urine Turbidity Cloudy (Clear) 03/02/20 Unknown Urine pH 5.0 (5.0-7.0) 03/02/20 Unknown Ur Specific [place] 1.010 (1.003-1.030) 03/02/20 Unknown Urine Protein 100 mg/dl mg/dL (Negative) 03/02/20 Unknown Urine Glucose (UA) Neg mg/dL (Negative) 03/02/20 Unknown Urine Ketones Neg mg/dL (Negative) 03/02/20 Unknown Urine Blood Sm (Negative) 03/02/20 Unknown Urine Nitrite Pos (Negative) 03/02/20 Unknown Urine Bilirubin Neg (Negative) 03/02/20 Unknown Urine Urobilinogen < 2.0 mg/dL (<2.0) 03/02/20 Unknown Ur Leukocyte Esterase Lg (Negative) 03/02/20 Unknown Urine WBC (Auto) > 182.0 /HPF (0.0-6.0) H 03/02/20 Unknown Urine RBC (Auto) 15.0 /HPF (0.0-6.0) 03/02/20 Unknown U Epithel Cells (Auto) 2.0 /HPF (0-13.0) 03/02/20 Unknown Urine Bacteria (Auto) 4+ /HPF (Negative) 03/02/20 Unknown Hyaline Casts 1 /LPF 03/02/20 Unknown Urine Mucus Few /HPF 03/02/20 Unknown Coronavirus (PCR) Negative (Negative) 03/02/20 10:44 Cunningham/IV: Voiding Method Incontinent IV Catheter Type [Left INT / Saline Lock Antecubital] Active Medications - Current Medications Current Medications: Generic Name Dose Route Start Last Admin Trade Name Freq PRN Reason Stop Dose Admin Acetaminophen 650 mg 03/02/20 03:40 Tylenol PO Q4H PRN Pain MILD(1-3)/Fever >100.5/HUTCHINS Dextrose 50 ml 03/02/20 03:40 D50w (25gm) Syringe IV Q30MIN PRN Hypoglycemia Protocol Lactated Ringer's 1,000 mls @ 125 mls/hr 03/02/20 09:00 03/06/20 15:42 Lactated Ringers IV 125 mls/hr DIRECT IDRIS Administration Ertapenem 1 gm/ Sodium 50 mls @ 100 mls/hr 03/06/20 15:30 03/06/20 15:47 Chloride IV 100 mls/hr QDAY IDRIS Administration Insulin Human Lispro 0 unit 03/02/20 07:30 03/06/20 12:44 Humalog SUB-Q Not Given ACHS [facility] Protocol Magnesium Hydroxide 30 ml 03/02/20 03:40 Milk Of Magnesia PO Q4H PRN Constipation Morphine Sulfate 2 mg 03/02/20 03:40 Morphine IV Q4H PRN Pain, Moderate (4-6) Ondansetron HCl 4 mg 03/02/20 03:40 Zofran IV Q8H PRN Nausea And Vomiting Sodium Chloride 10 ml 03/02/20 10:00 03/06/20 10:42 Sodium Chloride Flush Syringe 10 Ml IV 10 ml BID IDRIS Administration Sodium Chloride 10 ml 03/02/20 03:40 Sodium Chloride Flush Syringe 10 Ml IV PRN PRN LINE FLUSH Nutrition/Malnutrition Assess - Dietary Evaluation Nutrition/Malnutrition Findings: Nutrition Notes Start: 03/02/20 10:33 Freq: Status: Active Protocol: Document 03/02/20 10:33 LM (Rec: 03/02/20 10:43 LM [id number]) Nutrition Notes Need for Assessment generated from: MD Order Initial or Follow up Assessment Current Diagnosis CKD(stage I-IV),Diabetes, Sepsis,Hypertension Other Pertinent Diagnosis Suspected COVID-19, UTI, multiple skin ulcers Current Diet Cardiac/consistent CHO Labs/Tests K 2.8 BUN 59 Cr 2.3 Pertinent Medications Reviewed Height 5 ft 8 in Weight 121.5 kg [place] Body Weight (kg) 70.00 BMI 40.7 Weight Status Morbidly Obese Subjective/Other Information MD consult for diet education. Unable to reach pt by phone. Pt has several skin ulcers, belem score is 14. Pt also has LE edema. Burn Absent Trauma Absent Minimum of two criteria No Fluid Accumulation Mild (non-severe) #1 Nutrition Diagnosis Increased nutrient needs ( specify in comment below) Comments: Protein Etiology Wound healing As Evidenced by Signs and Symptoms Pt with multiple skin ulcers Is patient on ventilator? No Is Patient Ambulatory and/or Out of Bed No REE-([facility]-confined to bed) 2279.724 Kcal/Kg value to use for calculation 15 Approximate Energy Requirements Using 1823 kcal/Kg Calculation Used for Recommendations Kcal/kg Additional Notes Protein: 77-144g (0.8-1.5g/kg using AdjBW of 96kg) Fluid: 1ml/kcal Nutrition Intervention Change Diet Order: Continue Goal #1 Meet at least 75% of energy and protein needs Goal #2 Wound healing Anticipated Discharge Needs: cardiac/consistent CHO Follow-Up By: 03/13/20 Additional Comments F/U for intakes, diet education
[2020-03-06] MEDS ORDERED: MAGNESIUM SULFATE 2 GM/50 ML BAG IV ONE (18:00)
[2020-03-07 06:21] LABS: Basophils # (Auto) 0.1 K/mm3 (0.0-0.1); Eosinophils # (Auto) 0.3 K/mm3 (0.0-0.4); Eosinophils % (Auto) 2.1 % (0.0-4.3); Hematocrit 25.1 % (35.5-45.6); Hemoglobin 8.2 gm/dl (11.8-15.2); Lymphocytes # (Auto) 2.4 K/mm3 (1.2-5.4); Lymphocytes % (Auto) 16.1 % (13.4-35.0); Mean Corpuscular HGB Conc 33 % (32-34); Mean Corpuscular Volume 95 fl (84-94); Monocytes # (Auto) 1.3 K/mm3 (0.0-0.8); Monocytes % (Auto) 8.8 % (0.0-7.3); Platelet Count 311 K/mm3 (140-440); Red Blood Count 2.65 M/mm3 (3.65-5.03); Red Cell Distribution Width 16.2 % (13.2-15.2)
[2020-03-07 06:38] LABS: Calcium 9.1 mg/dL (8.4-10.2)
--- NOTE | 2020-03-07 08:07 | Progress Note ---
Assessment and Plan Assessment and plan: --Covid negative --Severe hypokalemia; potassium of 2.8 Patient's potassium was 2.8 yesterday, replaced with 80 mEq of p.o. KCl Did not improve, today potassium is 2.8 again Replaced with 40 mEq p.o. KCl x2 doses and 20 mEq IV KCl Check magnesium. Monitor electrolytes --Hypomagnesemia; received mag sulfate IV Follow electrolytes --Hypophosphatemia; Neutra-Phos 3 times a day x 6 doses Closely monitor electrolytes --Acute hypoxemic respiratory failure: Cont oxygen titrate O2 sats to more than 90%, Bipap as needed Secondary to Sepsis due to UTI, treat underlying cause --Sepsis secondary to UTI; ESBL bacteremia Continue ertapenem, contact isolation ID recommend 2 weeks of ertapenem. repeat blood cultures a.m. to document clearance, midline when cultures negative for 48 hours. 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 Will monitor renal function avoid nephrotoxin, nephrology following --Diabetes Mellitus type 2; Accu-Chek sliding scale coverage ADA diet Long-acting insulin as needed, check hemoglobin A1c Sacral and LE Pressure ulcers. Wound care per wound team. --hx CVA; supportive care --Morbid obesity: BMI 40.4, supportive care Patient needs weight reduction program when medically stable --Chronic lymphedema; supportive care We will closely monitor the patient and adjust management as needed [employer] Setter Fourdrinier recommendations noted and appreciated 03/04/2020. Continue ceftriaxone per ID recommendations. Follow-up blood and urine cultures. COVID-19 testing negative. Patient appears to be at baseline with creatinine. Patient with chronic kidney disease. Creatinine of 2.3 2016. Await renal ultrasound. Pt reports that he would like to sign out AMA. 03/05/2020. Patient with persistent leukocytosis. Blood cultures revealed E. coli. Await sensitivities for E. coli bacteremia. ID following. Await renal ultrasound results 03/06; blood cultures positive for ESBL E. coli, ID recommendations noted, antibiotics adjusted to ertapenem, contact isolation 03/07; multiple electrolyte abnormalities, correct per protocols and follow electrolytes, sepsis due to UTI ESBL, ID recommended 2 weeks of ertapenem Request midline History Interval history: I have seen and examined the patient at the bedside Patient's chart and medications reviewed Patient feels slightly better still has shortness of breath Vital signs noted Hospitalist Physical - Constitutional Vitals: Temp Pulse Resp BP Pulse Ox 98.2 F 94 H 16 131/55 99 03/07/20 04:15 03/07/20 04:15 03/07/20 04:15 03/07/20 04:15 03/07/20 04:15 General appearance: Present: no acute distress, well-nourished, obese (Morbidly obese) - EENT Eyes: Present: PERRL, EOM intact - Neck Neck: Present: supple, normal ROM - Respiratory Respiratory effort: normal Respiratory: bilateral: diminished, negative: rales, rhonchi, wheezing - Cardiovascular Rhythm: regular Heart Sounds: Present: S1 & S2 - Extremities Extremities: no ischemia, No edema - Abdominal General gastrointestinal: soft, non-tender, non-distended - Integumentary Integumentary: Present: clear, warm - Psychiatric Psychiatric: appropriate mood/affect, cooperative - Neurologic Neurologic: moves all extremities Results - Labs CBC & Chem 7: 03/07/20 05:31 03/07/20 15:37 Labs: Laboratory Last Values WBC 15.0 K/mm3 (4.5-11.0) H 03/07/20 05:31 RBC 2.65 M/mm3 (3.65-5.03) L 03/07/20 05:31 Hgb 8.2 gm/dl (11.8-15.2) L 03/07/20 05:31 Hct 25.1 % (35.5-45.6) L 03/07/20 05:31 MCV 95 fl (84-94) H 03/07/20 05:31 MCH 31 pg (28-32) 03/07/20 05:31 MCHC 33 % (32-34) 03/07/20 05:31 RDW 16.2 % (13.2-15.2) H 03/07/20 05:31 Plt Count 311 K/mm3 (140-440) 03/07/20 05:31 Lymph % (Auto) 16.1 % (13.4-35.0) 03/07/20 05:31 Hawkins % (Auto) 8.8 % (0.0-7.3) H 03/07/20 05:31 Eos % (Auto) 2.1 % (0.0-4.3) 03/07/20 05:31 Baso % (Auto) 1.0 % (0.0-1.8) 03/07/20 05:31 Lymph # (Auto) 2.4 K/mm3 (1.2-5.4) 03/07/20 05:31 Hawkins # (Auto) 1.3 K/mm3 (0.0-0.8) H 03/07/20 05:31 Eos # (Auto) 0.3 K/mm3 (0.0-0.4) 03/07/20 05:31 Baso # (Auto) 0.1 K/mm3 (0.0-0.1) 03/07/20 05:31 Add Manual Diff Complete 03/05/20 05:13 Total Counted 200 03/05/20 05:13 Seg Neutrophils % 72.0 % (40.0-70.0) H 03/07/20 05:31 Seg Neuts % (Manual) 94.0 % (40.0-70.0) H 03/05/20 05:13 Band Neutrophils % 0 % 03/05/20 05:13 Lymphocytes % (Manual) 2.5 % (13.4-35.0) L 03/05/20 05:13 Reactive Lymphs % (Man) 0 % 03/05/20 05:13 Monocytes % (Manual) 2.0 % (0.0-7.3) 03/05/20 05:13 Eosinophils % (Manual) 1.0 % (0.0-4.3) 03/05/20 05:13 Basophils % (Manual) 0.5 % (0.0-1.8) 03/05/20 05:13 Metamyelocytes % 0 % 03/05/20 05:13 Myelocytes % 0 % 03/05/20 05:13 Promyelocytes % 0 % 03/05/20 05:13 Blast Cells % 0 % 03/05/20 05:13 Nucleated RBC % Not Reportable 03/05/20 05:13 Seg Neutrophils # 10.8 K/mm3 (1.8-7.7) H 03/07/20 05:31 Seg Neutrophils # Man 22.2 K/mm3 (1.8-7.7) H 03/05/20 05:13 Band Neutrophils # 0.0 K/mm3 03/05/20 05:13 Lymphocytes # (Manual) 0.6 K/mm3 (1.2-5.4) L 03/05/20 05:13 Abs React Lymphs (Man) 0.0 K/mm3 03/05/20 05:13 Monocytes # (Manual) 0.5 K/mm3 (0.0-0.8) 03/05/20 05:13 Eosinophils # (Manual) 0.2 K/mm3 (0.0-0.4) 03/05/20 05:13 Basophils # (Manual) 0.1 K/mm3 (0.0-0.1) 03/05/20 05:13 Metamyelocytes # 0.0 K/mm3 03/05/20 05:13 Myelocytes # 0.0 K/mm3 03/05/20 05:13 Promyelocytes # 0.0 K/mm3 03/05/20 05:13 Blast Cells # 0.0 K/mm3 03/05/20 05:13 WBC Morphology Not Reportable 03/05/20 05:13 Hypersegmented Neuts Not Reportable 03/05/20 05:13 Hyposegmented Neuts Not Reportable 03/05/20 05:13 Hypogranular Neuts Not Reportable 03/05/20 05:13 Smudge Cells Not Reportable 03/05/20 05:13 Toxic Granulation Not Reportable 03/05/20 05:13 Toxic Vacuolation Not Reportable 03/05/20 05:13 Dohle Bodies Not Reportable 03/05/20 05:13 Pelger-Huet Anomaly Not Reportable 03/05/20 05:13 Santiago Rods Not Reportable 03/05/20 05:13 Platelet Estimate Consistent w auto 03/05/20 05:13 Clumped Platelets Not Reportable 03/05/20 05:13 Plt Clumps, EDTA Not Reportable 03/05/20 05:13 Large Platelets Not Reportable 03/05/20 05:13 Giant Platelets Not Reportable 03/05/20 05:13 Platelet Satelliting Not Reportable 03/05/20 05:13 Plt Morphology Comment Not Reportable 03/05/20 05:13 RBC Morphology Not Reportable 03/05/20 05:13 Dimorphic RBCs Not Reportable 03/05/20 05:13 Polychromasia Not Reportable 03/05/20 05:13 Hypochromasia Not Reportable 03/05/20 05:13 Poikilocytosis Not Reportable 03/05/20 05:13 Anisocytosis 1+ 03/05/20 05:13 Microcytosis Not Reportable 03/05/20 05:13 Macrocytosis Not Reportable 03/05/20 05:13 Spherocytes Not Reportable 03/05/20 05:13 Pappenheimer Bodies Not Reportable 03/05/20 05:13 Sickle Cells Not Reportable 03/05/20 05:13 Target Cells Not Reportable 03/05/20 05:13 Tear Drop Cells Not Reportable 03/05/20 05:13 Ovalocytes Not Reportable 03/05/20 05:13 Helmet Cells Not Reportable 03/05/20 05:13 [place] Bodies Not Reportable 03/05/20 05:13 [place] Rings Not Reportable 03/05/20 05:13 [place] Cells Not Reportable 03/05/20 05:13 Bite Cells Not Reportable 03/05/20 05:13 Crenated Cell Not Reportable 03/05/20 05:13 Elliptocytes Not Reportable 03/05/20 05:13 Acanthocytes (Spur) Not Reportable 03/05/20 05:13 Rouleaux Not Reportable 03/05/20 05:13 Hemoglobin C Crystals Not Reportable 03/05/20 05:13 Schistocytes Not Reportable 03/05/20 05:13 Malaria parasites Not Reportable 03/05/20 05:13 Isauro Bodies Not Reportable 03/05/20 05:13 Hem Pathologist Commnt No 03/05/20 05:13 PT 15.8 Sec. (12.2-14.9) H 03/03/20 04:28 INR 1.23 (0.87-1.13) H 03/03/20 04:28 APTT 34.9 Sec. (24.2-36.6) 03/02/20 01:52 Sodium 144 mmol/L (137-145) 03/07/20 05:31 Potassium 2.8 mmol/L (3.6-5.0) L* 03/07/20 05:31 Chloride 107.9 mmol/L (98-107) H 03/07/20 05:31 Carbon Dioxide 15 mmol/L (22-30) L 03/07/20 05:31 Anion Gap 24 mmol/L 03/07/20 05:31 BUN 40 mg/dL (9-20) H 03/07/20 05:31 Creatinine 2.1 mg/dL (0.8-1.3) H 03/07/20 05:31 Estimated GFR 37 ml/min 03/07/20 05:31 BUN/Creatinine Ratio 19 % 03/07/20 05:31 Glucose 72 mg/dL (75-100) L 03/07/20 05:31 POC Glucose 82 (70-105) 03/06/20 21:51 Lactic Acid 0.60 mmol/L (0.7-2.0) L 03/02/20 08:03 Calcium 9.1 mg/dL (8.4-10.2) 03/07/20 05:31 Phosphorus 2.20 mg/dL (2.5-4.5) L 03/07/20 05:31 Magnesium 1.50 mg/dL (1.7-2.3) L 03/06/20 Unknown Ferritin 601.2 ng/mL (30.0-300.0) H 03/02/20 01:52 Total Bilirubin 0.40 mg/dL (0.1-1.2) 03/03/20 04:28 AST 24 units/L (5-40) 03/03/20 04:28 ALT 15 units/L (7-56) 03/03/20 04:28 Alkaline Phosphatase 132 units/L (35-129) H 03/03/20 04:28 Lactate Dehydrogenase 251 units/L (91-180) H 03/02/20 08:03 Total Creatine Kinase 34 units/L (55-170) L 03/02/20 01:52 C-Reactive Protein 2.00 mg/dL (0.00-1.30) H 03/02/20 01:52 C-Reactive Protein 2.20 mg/dL (0.00-1.30) H 03/02/20 01:52 Total Protein 6.0 g/dL (6.3-8.2) L 03/03/20 04:28 Albumin 2.6 g/dL (3.9-5) L 03/03/20 04:28 Albumin/Globulin Ratio 0.8 % 03/03/20 04:28 Procalcitonin 3.07 ng/mL (<0.15) 03/02/20 01:52 TSH 0.885 mlU/mL (0.270-4.200) 03/02/20 01:52 Urine Color Yellow (Yellow) 03/02/20 Unknown Urine Turbidity Cloudy (Clear) 03/02/20 Unknown Urine pH 5.0 (5.0-7.0) 03/02/20 Unknown Ur Specific [place] 1.010 (1.003-1.030) 03/02/20 Unknown Urine Protein 100 mg/dl mg/dL (Negative) 03/02/20 Unknown Urine Glucose (UA) Neg mg/dL (Negative) 03/02/20 Unknown Urine Ketones Neg mg/dL (Negative) 03/02/20 Unknown Urine Blood Sm (Negative) 03/02/20 Unknown Urine Nitrite Pos (Negative) 03/02/20 Unknown Urine Bilirubin Neg (Negative) 03/02/20 Unknown Urine Urobilinogen < 2.0 mg/dL (<2.0) 03/02/20 Unknown Ur Leukocyte Esterase Lg (Negative) 03/02/20 Unknown Urine WBC (Auto) > 182.0 /HPF (0.0-6.0) H 03/02/20 Unknown Urine RBC (Auto) 15.0 /HPF (0.0-6.0) 03/02/20 Unknown U Epithel Cells (Auto) 2.0 /HPF (0-13.0) 03/02/20 Unknown Urine Bacteria (Auto) 4+ /HPF (Negative) 03/02/20 Unknown Hyaline Casts 1 /LPF 03/02/20 Unknown Urine Mucus Few /HPF 03/02/20 Unknown Coronavirus (PCR) Negative (Negative) 03/02/20 10:44 Cunningham/IV: Voiding Method Incontinent IV Catheter Type [Left INT / Saline Lock Antecubital] Active Medications - Current Medications Current Medications: Generic Name Dose Route Start Last Admin Trade Name Freq PRN Reason Stop Dose Admin Acetaminophen 650 mg 03/02/20 03:40 Tylenol PO Q4H PRN Pain MILD(1-3)/Fever >100.5/HUTCHINS Dextrose 50 ml 03/02/20 03:40 D50w (25gm) Syringe IV Q30MIN PRN Hypoglycemia Protocol Lactated Ringer's 1,000 mls @ 125 mls/hr 03/02/20 09:00 03/06/20 15:42 Lactated Ringers IV 125 mls/hr DIRECT IDRIS Administration Ertapenem 1 gm/ Sodium 50 mls @ 100 mls/hr 03/06/20 15:30 03/06/20 15:47 Chloride IV 100 mls/hr QDAY IDRIS Administration Potassium Chloride 10 meq in 100 mls @ 100 mls/hr 03/07/20 08:00 Kcl 10meq/100ml IV 03/07/20 09:59 Q1H IDRIS Insulin Human Lispro 0 unit 03/02/20 07:30 03/06/20 22:43 Humalog SUB-Q Not Given ACHS [facility] Protocol Magnesium Hydroxide 30 ml 03/02/20 03:40 Milk Of Magnesia PO Q4H PRN Constipation Morphine Sulfate 2 mg 03/02/20 03:40 Morphine IV Q4H PRN Pain, Moderate (4-6) Ondansetron HCl 4 mg 03/02/20 03:40 Zofran IV Q8H PRN Nausea And Vomiting Potassium Chloride 40 meq 03/07/20 08:00 K-Dur PO 03/07/20 12:01 Q4H IDRIS Potassium Phos/Sodium Phos 1 each 03/07/20 14:00 Phos-Nak PO 03/09/20 06:01 Q8HR IDRIS Sodium Chloride 10 ml 03/02/20 10:00 03/06/20 22:44 Sodium Chloride Flush Syringe 10 Ml IV 10 ml BID IDRIS Administration Sodium Chloride 10 ml 03/02/20 03:40 Sodium Chloride Flush Syringe 10 Ml IV PRN PRN LINE FLUSH Nutrition/Malnutrition Assess - Dietary Evaluation Nutrition/Malnutrition Findings: Nutrition Notes Start: 03/02/20 10:33 Freq: Status: Active Protocol: Document 03/02/20 10:33 LM (Rec: 03/02/20 10:43 LM [id number]) Nutrition Notes Need for Assessment generated from: MD Order Initial or Follow up Assessment Current Diagnosis CKD(stage I-IV),Diabetes, Sepsis,Hypertension Other Pertinent Diagnosis Suspected COVID-19, UTI, multiple skin ulcers Current Diet Cardiac/consistent CHO Labs/Tests K 2.8 BUN 59 Cr 2.3 Pertinent Medications Reviewed Height 5 ft 8 in Weight 121.5 kg [place] Body Weight (kg) 70.00 BMI 40.7 Weight Status Morbidly Obese Subjective/Other Information MD consult for diet education. Unable to reach pt by phone. Pt has several skin ulcers, belem score is 14. Pt also has LE edema. Burn Absent Trauma Absent Minimum of two criteria No Fluid Accumulation Mild (non-severe) #1 Nutrition Diagnosis Increased nutrient needs ( specify in comment below) Comments: Protein Etiology Wound healing As Evidenced by Signs and Symptoms Pt with multiple skin ulcers Is patient on ventilator? No Is Patient Ambulatory and/or Out of Bed No REE-([facility]-confined to bed) 2279.724 Kcal/Kg value to use for calculation 15 Approximate Energy Requirements Using 1823 kcal/Kg Calculation Used for Recommendations Kcal/kg Additional Notes Protein: 77-144g (0.8-1.5g/kg using AdjBW of 96kg) Fluid: 1ml/kcal Nutrition Intervention Change Diet Order: Continue Goal #1 Meet at least 75% of energy and protein needs Goal #2 Wound healing Anticipated Discharge Needs: cardiac/consistent CHO Follow-Up By: 03/13/20 Additional Comments F/U for intakes, diet education
[2020-03-07] MEDS: INSULIN LISPRO 100 UNIT/ML VIAL 3 mL SUB-Q SCH ×4 (10:17→22:50)
--- NOTE | 2020-03-07 10:24 | Progress Note ---
Assessment and Plan ALEJANDRO on CKD likely prerenal azoetimia Metabolic acidoses Hypokalemia Hypomagnesemia UTI Plan: Stable Cr and BUN will d/c LR will start potassium bicarb 25 meq qday, may ncrease tomrrow Renal US -ve for obstruction Strict I&O monitoring Obtain daily weights Renally dose meds Avoid nephrotoxic agents Continue to monitor Subjective Date of service: 03/07/20 Principal diagnosis: ALEJANDRO Interval history: denies acute issues, NAD Objective - Vital Signs Vital signs: Vital Signs - 12hr 03/07/20 04:15 Temperature 98.2 F Pulse Rate 94 H Respiratory 16 Rate Blood Pressure 131/55 O2 Sat by Pulse 99 Oximetry - General Appearance General appearance: well-developed, well-nourished, obese EENT: ATNC, PERRL, mucous membranes dry Neck: no JVD, no carotid bruit Respiratory: Present: Clear to Ascultation. Absent: Rales, Ronchi Cardiology: regular, S1S2 Gastrointestinal: normoactive bowel sounds, no tenderness, no distended, no masses, no guarding, obese Integumentary: no rash, warm and dry Neurologic: no focal deficit, no asterixis Musculoskeletal: other (non pitting edema iN BLE) Psychiatric: cooperative - Lab 03/07/20 05:31 03/07/20 05:31 Most recent lab results Calcium 9.1 mg/dL (8.4-10.2) 03/07/20 05:31 Phosphorus 2.20 mg/dL (2.5-4.5) L 03/07/20 05:31 Magnesium 1.90 mg/dL (1.7-2.3) 03/07/20 05:31 Medications & Allergies - Medications Allergies/Adverse Reactions: Allergies diclofenac [Diclofenac] Allergy (Verified 10/05/18 08:11) Rash Home Medications: Home Medications Medication Instructions Recorded Confirmed Last Taken Type Baclofen [Lioresal] 10 mg PO BID 04/02/13 03/02/20 04/02/13 History Acetaminophen [Acetaminophen TAB] 650 mg PO Q4H PRN #1 tablet 02/28/17 03/02/20 Unknown Rx Aspirin [Aspirin BABY CHEW TAB] 81 mg PO DAILY #1 tab.chew 02/28/17 03/02/20 Unknown Rx DAPTOmycin 246 mg IV Q24H #1 vial 02/28/17 03/02/20 Unknown Rx Ferrous Sulfate [Feosol 325 MG tab] 325 mg PO QDAY #1 tablet 02/28/17 03/02/20 Unknown Rx Gabapentin 300 mg PO Q8HR #1 capsule 02/28/17 03/02/20 Unknown Rx Ondansetron [Zofran INJ] 4 mg IV Q8H PRN #1 vial 02/28/17 03/02/20 Unknown Rx Ebqhjlzfvjaz-Wpim-Akawhvwv,Iso 2.25 gm IV Q6HR #10 froz.piggy 02/28/17 03/02/20 Unknown Rx [Zosyn 2.25 gm/50 ml Galaxy Bag] Sodium Hypochlorite [Dakin's Half 1 applic TP Q12H PRN #1 bottle 02/28/17 03/02/20 Unknown Rx Strength] amLODIPine 10 mg PO DAILY #1 tablet 02/28/17 03/02/20 Unknown Rx cefUROXime [Ceftin] 250 mg PO Q12H #20 tablet 09/10/18 03/02/20 Unknown Rx traMADoL [Ultram] 50 mg PO Q6HR PRN #10 tablet 09/10/18 03/02/20 Unknown Rx Potassium Chloride [K-Dur] 2 tab PO QDAY 30 Days #60 tablet 01/21/19 03/02/20 Unknown Rx Active Medications: Generic Name Dose Route Start Last Admin Trade Name Freq PRN Reason Stop Dose Admin Acetaminophen 650 mg 03/02/20 03:40 Tylenol PO Q4H PRN Pain MILD(1-3)/Fever >100.5/HUTCHINS Dextrose 50 ml 03/02/20 03:40 D50w (25gm) Syringe IV Q30MIN PRN Hypoglycemia Protocol Ertapenem 1 gm/ Sodium 50 mls @ 100 mls/hr 03/06/20 15:30 03/06/20 15:47 Chloride IV 100 mls/hr QDAY IDRIS Administration Potassium Chloride 10 meq in 100 mls @ 100 mls/hr 03/07/20 09:00 Kcl 10meq/100ml IV 03/07/20 10:59 Q1H IDRIS Insulin Human Lispro 0 unit 03/02/20 07:30 03/07/20 10:17 Humalog SUB-Q Not Given ACHS IDRIS Protocol Magnesium Hydroxide 30 ml 03/02/20 03:40 Milk Of Magnesia PO Q4H PRN Constipation Morphine Sulfate 2 mg 03/02/20 03:40 Morphine IV Q4H PRN Pain, Moderate (4-6) Ondansetron HCl 4 mg 03/02/20 03:40 Zofran IV Q8H PRN Nausea And Vomiting Potassium Bicarbonate 25 meq 03/07/20 11:00 Klor-Con PO QDAY IDRIS Potassium Chloride 40 meq 03/07/20 08:00 K-Dur PO 03/07/20 12:01 Q4H IDRIS Potassium Phos/Sodium Phos 1 each 03/07/20 14:00 Phos-Nak PO 03/09/20 06:01 Q8HR IDRIS Sodium Chloride 10 ml 03/02/20 10:00 03/06/20 22:44 Sodium Chloride Flush Syringe 10 Ml IV 10 ml BID IDRIS Administration Sodium Chloride 10 ml 03/02/20 03:40 Sodium Chloride Flush Syringe 10 Ml IV PRN PRN LINE FLUSH
[2020-03-07] MEDS: ERTAPENEM 1 GM in SODIUM CHLORIDE 0.9% 50 ML IV SCH (10:30)
[2020-03-07] MEDS: POTASSIUM CHLORIDE ER 20 MEQ TAB PO SCH ×2 (10:36→16:48)
[2020-03-07] MEDS: POTASSIUM CHLORIDE 10 MEQ 10 MEQ/100 ML BAG IV SCH ×2 (10:42→11:42)
--- NOTE | 2020-03-07 12:34 | Progress Note ---
Assessment and Plan Cultures: Blood culture 03/02/2020 ESBL E. coli COVID-19 negative A/P: 79-year-old man past medical history CKD, CVA, DM 2, obesity, chronic lymphedema family hypoxic with fevers, concern for bronchitis versus COVID-19. #Acute hypoxemic respiratory failure: Possibly secondary to COVID-19 infection. Found to be hypoxic with EMS. #ESBL E coli bacteremia: secondary to UTI #Pyuria: With associated altered mental status and fevers, likely UTI. #CKD: Renally dose antibiotics #Diabetes: tight glycemic control for best outcomes. #Pressure ulcers: Sacrum, bilateral lower extremities. Recs: -Given ESBL in blood, ertapenem 1 g every 24 hours -We will plan on 2 weeks of above ertapenem. Obtain repeat blood cultures in the morning to document clearance, midline when cultures negative for 48 hours. Thank you for the consult, we will continue to follow. Susan Deutsch MD O: [phone] F: [phone] Subjective Date of service: 03/07/20 Principal diagnosis: ALEJANDRO Interval history: Afebrile, white count of 15. Objective - Exam Narrative Exam: Physical exam deferred due to PPE conservation strategy. Please refer to primary team's note. - Constitutional Vitals: Vital Signs Temp Pulse Resp BP Pulse Ox 98.2 F 94 H 16 131/55 99 03/07/20 04:15 03/07/20 04:15 03/07/20 04:15 03/07/20 04:15 03/07/20 04:15 Temperature -Last 24 Hours Temperature 98.2 F Temperature 98.3 F Temperature 99.2 F - Labs CBC & Chem 7: 03/07/20 05:31 03/07/20 05:31 Labs: Abnormal lab results 03/06/20 03/07/20 03/07/20 Range/Units Unknown 05:31 05:31 WBC 15.0 H (4.5-11.0) K/mm3 RBC 2.65 L (3.65-5.03) M/mm3 Hgb 8.2 L (11.8-15.2) gm/dl Hct 25.1 L (35.5-45.6) % MCV 95 H (84-94) fl RDW 16.2 H (13.2-15.2) % [place] % (Auto) 8.8 H (0.0-7.3) % [place] # (Auto) 1.3 H (0.0-0.8) K/mm3 Seg Neutrophils % 72.0 H (40.0-70.0) % Seg Neutrophils # 10.8 H (1.8-7.7) K/mm3 Potassium 2.8 L* (3.6-5.0) mmol/L Chloride 107.9 H (98-107) mmol/L Carbon Dioxide 15 L (22-30) mmol/L BUN 40 H (9-20) mg/dL Creatinine 2.1 H (0.8-1.3) mg/dL Glucose 72 L (75-100) mg/dL Phosphorus 2.20 L (2.5-4.5) mg/dL Magnesium 1.50 L (1.7-2.3) mg/dL
[2020-03-07] MEDS: K-LYTE 25 MEQ TABLET EFF PO SCH (13:13)
[2020-03-07] MEDS: PHOS-NAK POWDER PACKET PO SCH ×2 (17:10→22:50)
[2020-03-08] MEDS: PHOS-NAK POWDER PACKET PO SCH ×3 (07:08→22:04)
--- NOTE | 2020-03-08 07:24 | Progress Note ---
Assessment and Plan Assessment and plan: --Covid negative --Severe hypokalemia; potassium of 2.8 Patient's potassium was 2.8 yesterday, replaced with 80 mEq of p.o. KCl Did not improve, today potassium is 2.8 again Replaced with 40 mEq p.o. KCl x2 doses and 20 mEq IV KCl Check magnesium. Monitor electrolytes --Hypomagnesemia; received mag sulfate IV Follow electrolytes --Hypophosphatemia; Neutra-Phos 3 times a day x 6 doses Closely monitor electrolytes --Acute hypoxemic respiratory failure: Cont oxygen titrate O2 sats to more than 90%, Bipap as needed Secondary to Sepsis due to UTI, treat underlying cause --Sepsis secondary to UTI; ESBL bacteremia Continue ertapenem, contact isolation ID recommend 2 weeks of ertapenem. Stop date 03/20/2020 repeat blood cultures a.m. to document clearance, midline when cultures negative for 48 hours. --Toxic metabolic encephalopathy: Multifactorial, continue current antibiotics , supportive care --Acute on CKD stage III ; due to prerenal azotemia, vasomotor nephropathy Will monitor renal function avoid nephrotoxin, nephrology following --Diabetes Mellitus type 2; Accu-Chek sliding scale coverage ADA diet Long-acting insulin as needed, check hemoglobin A1c Sacral and LE Pressure ulcers. Wound care per wound team. --hx CVA; supportive care --Morbid obesity: BMI 40.4, supportive care Patient needs weight reduction program when medically stable --Chronic lymphedema; supportive care --Superficial skin erosions/erythema[stage I] hyperpigmentation Local skin care, wound care following We will closely monitor the patient and adjust management as needed Makeup Sales Consultant recommendations noted and appreciated Plan of care reviewed with the patient and his nurse 03/04/2020. Continue ceftriaxone per ID recommendations. Follow-up blood and urine cultures. COVID-19 testing negative. Patient appears to be at baseline with creatinine. Patient with chronic kidney disease. Creatinine of 2.3 2017. Await renal ultrasound. Pt reports that he would like to sign out AMA. 03/05/2020. Patient with persistent leukocytosis. Blood cultures revealed E. coli. Await sensitivities for E. coli bacteremia. ID following. Await renal ultrasound results 03/06; blood cultures positive for ESBL E. coli, ID recommendations noted, antibiotics adjusted to ertapenem, contact isolation 03/07; multiple electrolyte abnormalities, correct per protocols and follow electrolytes, sepsis due to UTI ESBL, ID recommended 2 weeks of ertapenem Request midline and cultures negative more than 48 hours 03/08; awaiting discharge planning, midline placement for long-term home IV antibiotics recommended by CRISTIANO TORO assisting with DC planning History Interval history: I have seen and examined the patient at the bedside this morning Patient's chart and medications reviewed Patient feels slightly better no new complaints Awaiting long-term home IV antibiotic therapy arrangements per CM Vital signs reviewed Hospitalist Physical - Constitutional Vitals: Temp Pulse Resp BP Pulse Ox 99.1 F 101 H 24 148/58 98 03/08/20 05:11 03/08/20 05:11 03/08/20 05:11 03/08/20 05:11 03/08/20 05:11 General appearance: Present: no acute distress, well-nourished, obese (Morbidly obese) - EENT Eyes: Present: PERRL, EOM intact - Neck Neck: Present: supple, normal ROM - Respiratory Respiratory effort: normal Respiratory: bilateral: diminished, negative: rales, rhonchi, wheezing - Cardiovascular Rhythm: regular Heart Sounds: Present: S1 & S2 - Extremities Extremities: no ischemia, No edema - Abdominal General gastrointestinal: soft, non-tender, non-distended, normal bowel sounds - Integumentary Integumentary: Present: clear, warm - Psychiatric Psychiatric: appropriate mood/affect, cooperative - Neurologic Neurologic: moves all extremities Results - Labs CBC & Chem 7: 03/08/20 07:34 03/08/20 07:34 Labs: Laboratory Last Values WBC 15.0 K/mm3 (4.5-11.0) H 03/07/20 05:31 RBC 2.65 M/mm3 (3.65-5.03) L 03/07/20 05:31 Hgb 8.2 gm/dl (11.8-15.2) L 03/07/20 05:31 Hct 25.1 % (35.5-45.6) L 03/07/20 05:31 MCV 95 fl (84-94) H 03/07/20 05:31 MCH 31 pg (28-32) 03/07/20 05:31 MCHC 33 % (32-34) 03/07/20 05:31 RDW 16.2 % (13.2-15.2) H 03/07/20 05:31 Plt Count 311 K/mm3 (140-440) 03/07/20 05:31 Lymph % (Auto) 16.1 % (13.4-35.0) 03/07/20 05:31 [place] % (Auto) 8.8 % (0.0-7.3) H 03/07/20 05:31 Eos % (Auto) 2.1 % (0.0-4.3) 03/07/20 05:31 Baso % (Auto) 1.0 % (0.0-1.8) 03/07/20 05:31 Lymph # (Auto) 2.4 K/mm3 (1.2-5.4) 03/07/20 05:31 [place] # (Auto) 1.3 K/mm3 (0.0-0.8) H 03/07/20 05:31 Eos # (Auto) 0.3 K/mm3 (0.0-0.4) 03/07/20 05:31 Baso # (Auto) 0.1 K/mm3 (0.0-0.1) 03/07/20 05:31 Add Manual Diff Complete 03/05/20 05:13 Total Counted 200 03/05/20 05:13 Seg Neutrophils % 72.0 % (40.0-70.0) H 03/07/20 05:31 Seg Neuts % (Manual) 94.0 % (40.0-70.0) H 03/05/20 05:13 Band Neutrophils % 0 % 03/05/20 05:13 Lymphocytes % (Manual) 2.5 % (13.4-35.0) L 03/05/20 05:13 Reactive Lymphs % (Man) 0 % 03/05/20 05:13 Monocytes % (Manual) 2.0 % (0.0-7.3) 03/05/20 05:13 Eosinophils % (Manual) 1.0 % (0.0-4.3) 03/05/20 05:13 Basophils % (Manual) 0.5 % (0.0-1.8) 03/05/20 05:13 Metamyelocytes % 0 % 03/05/20 05:13 Myelocytes % 0 % 03/05/20 05:13 Promyelocytes % 0 % 03/05/20 05:13 Blast Cells % 0 % 03/05/20 05:13 Nucleated RBC % Not Reportable 03/05/20 05:13 Seg Neutrophils # 10.8 K/mm3 (1.8-7.7) H 03/07/20 05:31 Seg Neutrophils # Man 22.2 K/mm3 (1.8-7.7) H 03/05/20 05:13 Band Neutrophils # 0.0 K/mm3 03/05/20 05:13 Lymphocytes # (Manual) 0.6 K/mm3 (1.2-5.4) L 03/05/20 05:13 Abs React Lymphs (Man) 0.0 K/mm3 03/05/20 05:13 Monocytes # (Manual) 0.5 K/mm3 (0.0-0.8) 03/05/20 05:13 Eosinophils # (Manual) 0.2 K/mm3 (0.0-0.4) 03/05/20 05:13 Basophils # (Manual) 0.1 K/mm3 (0.0-0.1) 03/05/20 05:13 Metamyelocytes # 0.0 K/mm3 03/05/20 05:13 Myelocytes # 0.0 K/mm3 03/05/20 05:13 Promyelocytes # 0.0 K/mm3 03/05/20 05:13 Blast Cells # 0.0 K/mm3 03/05/20 05:13 WBC Morphology Not Reportable 03/05/20 05:13 Hypersegmented Neuts Not Reportable 03/05/20 05:13 Hyposegmented Neuts Not Reportable 03/05/20 05:13 Hypogranular Neuts Not Reportable 03/05/20 05:13 Smudge Cells Not Reportable 03/05/20 05:13 Toxic Granulation Not Reportable 03/05/20 05:13 Toxic Vacuolation Not Reportable 03/05/20 05:13 Dohle Bodies Not Reportable 03/05/20 05:13 Pelger-Huet Anomaly Not Reportable 03/05/20 05:13 [place] Rods Not Reportable 03/05/20 05:13 Platelet Estimate Consistent w auto 03/05/20 05:13 Clumped Platelets Not Reportable 03/05/20 05:13 Plt Clumps, EDTA Not Reportable 03/05/20 05:13 Large Platelets Not Reportable 03/05/20 05:13 Giant Platelets Not Reportable 03/05/20 05:13 Platelet Satelliting Not Reportable 03/05/20 05:13 Plt Morphology Comment Not Reportable 03/05/20 05:13 RBC Morphology Not Reportable 03/05/20 05:13 Dimorphic RBCs Not Reportable 03/05/20 05:13 Polychromasia Not Reportable 03/05/20 05:13 Hypochromasia Not Reportable 03/05/20 05:13 Poikilocytosis Not Reportable 03/05/20 05:13 Anisocytosis 1+ 03/05/20 05:13 Microcytosis Not Reportable 03/05/20 05:13 Macrocytosis Not Reportable 03/05/20 05:13 Spherocytes Not Reportable 03/05/20 05:13 Pappenheimer Bodies Not Reportable 03/05/20 05:13 Sickle Cells Not Reportable 03/05/20 05:13 Target Cells Not Reportable 03/05/20 05:13 Tear Drop Cells Not Reportable 03/05/20 05:13 Ovalocytes Not Reportable 03/05/20 05:13 Helmet Cells Not Reportable 03/05/20 05:13 [place] Bodies Not Reportable 03/05/20 05:13 [place] Rings Not Reportable 03/05/20 05:13 [place] Cells Not Reportable 03/05/20 05:13 Bite Cells Not Reportable 03/05/20 05:13 Crenated Cell Not Reportable 03/05/20 05:13 Elliptocytes Not Reportable 03/05/20 05:13 Acanthocytes (Spur) Not Reportable 03/05/20 05:13 Rouleaux Not Reportable 03/05/20 05:13 Hemoglobin C Crystals Not Reportable 03/05/20 05:13 Schistocytes Not Reportable 03/05/20 05:13 Malaria parasites Not Reportable 03/05/20 05:13 Isauro Bodies Not Reportable 03/05/20 05:13 Hem Pathologist Commnt No 03/05/20 05:13 PT 15.8 Sec. (12.2-14.9) H 03/03/20 04:28 INR 1.23 (0.87-1.13) H 03/03/20 04:28 APTT 34.9 Sec. (24.2-36.6) 03/02/20 01:52 Sodium 144 mmol/L (137-145) 03/07/20 05:31 Potassium 3.4 mmol/L (3.6-5.0) L D 03/07/20 15:37 Chloride 107.9 mmol/L (98-107) H 03/07/20 05:31 Carbon Dioxide 15 mmol/L (22-30) L 03/07/20 05:31 Anion Gap 24 mmol/L 03/07/20 05:31 BUN 40 mg/dL (9-20) H 03/07/20 05:31 Creatinine 2.1 mg/dL (0.8-1.3) H 03/07/20 05:31 Estimated GFR 37 ml/min 03/07/20 05:31 BUN/Creatinine Ratio 19 % 03/07/20 05:31 Glucose 72 mg/dL (75-100) L 03/07/20 05:31 POC Glucose 98 mg/dL (70-105) 03/07/20 22:01 Lactic Acid 0.60 mmol/L (0.7-2.0) L 03/02/20 08:03 Calcium 9.1 mg/dL (8.4-10.2) 03/07/20 05:31 Phosphorus 2.20 mg/dL (2.5-4.5) L 03/07/20 05:31 Magnesium 1.90 mg/dL (1.7-2.3) 03/07/20 15:37 Ferritin 601.2 ng/mL (30.0-300.0) H 03/02/20 01:52 Total Bilirubin 0.40 mg/dL (0.1-1.2) 03/03/20 04:28 AST 24 units/L (5-40) 03/03/20 04:28 ALT 15 units/L (7-56) 03/03/20 04:28 Alkaline Phosphatase 132 units/L (35-129) H 03/03/20 04:28 Lactate Dehydrogenase 251 units/L (91-180) H 03/02/20 08:03 Total Creatine Kinase 34 units/L (55-170) L 03/02/20 01:52 C-Reactive Protein 2.00 mg/dL (0.00-1.30) H 03/02/20 01:52 C-Reactive Protein 2.20 mg/dL (0.00-1.30) H 03/02/20 01:52 Total Protein 6.0 g/dL (6.3-8.2) L 03/03/20 04:28 Albumin 2.6 g/dL (3.9-5) L 03/03/20 04:28 Albumin/Globulin Ratio 0.8 % 03/03/20 04:28 Procalcitonin 3.07 ng/mL (<0.15) 03/02/20 01:52 TSH 0.885 mlU/mL (0.270-4.200) 03/02/20 01:52 Urine Color Yellow (Yellow) 03/02/20 Unknown Urine Turbidity Cloudy (Clear) 03/02/20 Unknown Urine pH 5.0 (5.0-7.0) 03/02/20 Unknown Ur Specific [place] 1.010 (1.003-1.030) 03/02/20 Unknown Urine Protein 100 mg/dl mg/dL (Negative) 03/02/20 Unknown Urine Glucose (UA) Neg mg/dL (Negative) 03/02/20 Unknown Urine Ketones Neg mg/dL (Negative) 03/02/20 Unknown Urine Blood Sm (Negative) 03/02/20 Unknown Urine Nitrite Pos (Negative) 03/02/20 Unknown Urine Bilirubin Neg (Negative) 03/02/20 Unknown Urine Urobilinogen < 2.0 mg/dL (<2.0) 03/02/20 Unknown Ur Leukocyte Esterase Lg (Negative) 03/02/20 Unknown Urine WBC (Auto) > 182.0 /HPF (0.0-6.0) H 03/02/20 Unknown Urine RBC (Auto) 15.0 /HPF (0.0-6.0) 03/02/20 Unknown U Epithel Cells (Auto) 2.0 /HPF (0-13.0) 03/02/20 Unknown Urine Bacteria (Auto) 4+ /HPF (Negative) 03/02/20 Unknown Hyaline Casts 1 /LPF 03/02/20 Unknown Urine Mucus Few /HPF 03/02/20 Unknown Coronavirus (PCR) Negative (Negative) 03/02/20 10:44 Microbiology: Microbiology 03/07/20 05:31 Peripheral/Venous Blood Culture - Preliminary NO GROWTH AFTER 24 HOURS 03/07/20 07:21 Peripheral/Venous Blood Culture - Preliminary Culture in Progress [place]/IV: Voiding Method Diaper IV Catheter Type [Left INT / Saline Lock Antecubital] Active Medications - Current Medications Current Medications: Generic Name Dose Route Start Last Admin Trade Name Freq PRN Reason Stop Dose Admin Acetaminophen 650 mg 03/02/20 03:40 Tylenol PO Q4H PRN Pain MILD(1-3)/Fever >100.5/HUTCHINS Dextrose 50 ml 03/02/20 03:40 D50w (25gm) Syringe IV Q30MIN PRN Hypoglycemia Protocol Ertapenem 1 gm/ Sodium 50 mls @ 100 mls/hr 03/06/20 15:30 03/07/20 10:30 Chloride IV 100 mls/hr QDAY IDRIS Administration Insulin Human Lispro 0 unit 03/02/20 07:30 03/07/20 22:50 Humalog SUB-Q Not Given ACHS IDRIS Protocol Magnesium Hydroxide 30 ml 03/02/20 03:40 Milk Of Magnesia PO Q4H PRN Constipation Morphine Sulfate 2 mg 03/02/20 03:40 Morphine IV Q4H PRN Pain, Moderate (4-6) Ondansetron HCl 4 mg 03/02/20 03:40 Zofran IV Q8H PRN Nausea And Vomiting Potassium Bicarbonate 25 meq 03/07/20 11:00 03/07/20 13:13 Klor-Con PO 25 meq QDAY IDRIS Administration Potassium Phos/Sodium Phos 1 each 03/07/20 14:00 03/08/20 07:08 Phos-Nak PO 03/09/20 06:01 1 each Q8HR IDRIS Administration Sodium Chloride 10 ml 03/02/20 10:00 03/07/20 22:51 Sodium Chloride Flush Syringe 10 Ml IV 10 ml BID IDRIS Administration Sodium Chloride 10 ml 03/02/20 03:40 Sodium Chloride Flush Syringe 10 Ml IV PRN PRN LINE FLUSH Nutrition/Malnutrition Assess - Dietary Evaluation Nutrition/Malnutrition Findings: Nutrition Notes Start: 03/02/20 10:33 Freq: Status: Active Protocol: Document 03/02/20 10:33 LM (Rec: 03/02/20 10:43 LM [id number]) Nutrition Notes Need for Assessment generated from: MD Order Initial or Follow up Assessment Current Diagnosis CKD(stage I-IV),Diabetes, Sepsis,Hypertension Other Pertinent Diagnosis Suspected COVID-19, UTI, multiple skin ulcers Current Diet Cardiac/consistent CHO Labs/Tests K 2.8 BUN 59 Cr 2.3 Pertinent Medications Reviewed Height 5 ft 8 in Weight 121.5 kg [place] Body Weight (kg) 70.00 BMI 40.7 Weight Status Morbidly Obese Subjective/Other Information MD consult for diet education. Unable to reach pt by phone. Pt has several skin ulcers, belem score is 14. Pt also has LE edema. Burn Absent Trauma Absent Minimum of two criteria No Fluid Accumulation Mild (non-severe) #1 Nutrition Diagnosis Increased nutrient needs ( specify in comment below) Comments: Protein Etiology Wound healing As Evidenced by Signs and Symptoms Pt with multiple skin ulcers Is patient on ventilator? No Is Patient Ambulatory and/or Out of Bed No REE-([place]-confined to bed) 2279.724 Kcal/Kg value to use for calculation 15 Approximate Energy Requirements Using 1823 kcal/Kg Calculation Used for Recommendations Kcal/kg Additional Notes Protein: 77-144g (0.8-1.5g/kg using AdjBW of 96kg) Fluid: 1ml/kcal Nutrition Intervention Change Diet Order: Continue Goal #1 Meet at least 75% of energy and protein needs Goal #2 Wound healing Anticipated Discharge Needs: cardiac/consistent CHO Follow-Up By: 03/13/20 Additional Comments F/U for intakes, diet education
[2020-03-08 08:23] LABS: Hematocrit 25.5 % (35.5-45.6); Hemoglobin 8.4 gm/dl (11.8-15.2); Mean Corpuscular HGB Conc 33 % (32-34); Mean Corpuscular Volume 96 fl (84-94); Red Blood Count 2.67 M/mm3 (3.65-5.03); Red Cell Distribution Width 16.7 % (13.2-15.2)
[2020-03-08 08:44] LABS: Calcium 9.5 mg/dL (8.4-10.2)
[2020-03-08] MEDS: INSULIN LISPRO 100 UNIT/ML VIAL 3 mL SUB-Q SCH ×4 (08:58→22:04)
[2020-03-08] MEDS: K-LYTE 25 MEQ TABLET EFF PO SCH (09:49)
[2020-03-08 09:50] LABS: Total Cells Counted 100
[2020-03-08] MEDS: ERTAPENEM 1 GM in SODIUM CHLORIDE 0.9% 50 ML IV SCH ×2 (09:50→18:35)
[2020-03-08 09:51] LABS: Band Neutrophils # (Manual) 0.4 K/mm3
[2020-03-08 09:52] LABS: Macrocytosis 1+; Ovalocytes Few; Schistocytes Rare
[2020-03-08 09:53] LABS: Platelet Estimate Consistent w Auto
[2020-03-08 11:46] LABS: Platelet Count 319 K/mm3 (140-440)
--- NOTE | 2020-03-08 13:00 | Progress Note ---
Assessment and Plan Assessment: ALEJANDRO on CKD likely prerenal azoetimia Metabolic acidoses Hypokalemia Hypomagnesemia UTI Plan: Renal labs reviewed, serum creatinine 2.3 today, yesterday's was 2.1, stable, non-oliguric Replace potassium as needed, on Klor-Con 25 meq po daily Renal US- no obstruction Strict I&O monitoring Obtain daily weights Renally dose meds Avoid nephrotoxic agents Continue to monitor Subjective Date of service: 03/08/20 Principal diagnosis: ALEJANDRO Interval history: Patient seen lying in bed. Patient requesting bed to be lowered. Objective - Vital Signs Vital signs: Vital Signs - 12hr 03/08/20 05:11 Temperature 99.1 F Pulse Rate 101 H Respiratory 24 Rate Blood Pressure 148/58 O2 Sat by Pulse 98 Oximetry - General Appearance General appearance: well-developed, appears stated age, obese, fatigue EENT: ATNC, PERRL, hearing intact, vision intact Neck: no JVD, supple Respiratory: Present: Decreased Breath Sounds Cardiology: S1S2 Gastrointestinal: normoactive bowel sounds Integumentary: warm and dry Neurologic: alert and oriented x3 Musculoskeletal: joint swelling - Lab 03/08/20 07:34 03/08/20 07:34 Most recent lab results Calcium 9.5 mg/dL (8.4-10.2) 03/08/20 07:34 Phosphorus 2.20 mg/dL (2.5-4.5) L 03/07/20 05:31 Magnesium 1.90 mg/dL (1.7-2.3) 03/07/20 15:37 Medications & Allergies - Medications Allergies/Adverse Reactions: Allergies diclofenac [Diclofenac] Allergy (Verified 10/05/18 08:11) Rash Home Medications: Home Medications Medication Instructions Recorded Confirmed Last Taken Type Baclofen [Lioresal] 10 mg PO BID 04/02/13 03/02/20 04/02/13 History Acetaminophen [Acetaminophen TAB] 650 mg PO Q4H PRN #1 tablet 02/28/17 03/02/20 Unknown Rx Aspirin [Aspirin BABY CHEW TAB] 81 mg PO DAILY #1 tab.chew 02/28/17 03/02/20 Unknown Rx DAPTOmycin 246 mg IV Q24H #1 vial 02/28/17 03/02/20 Unknown Rx Ferrous Sulfate [Feosol 325 MG tab] 325 mg PO QDAY #1 tablet 02/28/17 03/02/20 Unknown Rx Gabapentin 300 mg PO Q8HR #1 capsule 02/28/17 03/02/20 Unknown Rx Ondansetron [Zofran INJ] 4 mg IV Q8H PRN #1 vial 02/28/17 03/02/20 Unknown Rx Kkqpcdzjeoqg-Ziqc-Ehuzirue,Iso 2.25 gm IV Q6HR #10 froz.piggy 02/28/17 03/02/20 Unknown Rx [Zosyn 2.25 gm/50 ml Galaxy Bag] Sodium Hypochlorite [Dakin's Half 1 applic TP Q12H PRN #1 bottle 02/28/17 03/02/20 Unknown Rx Strength] amLODIPine 10 mg PO DAILY #1 tablet 02/28/17 03/02/20 Unknown Rx cefUROXime [Ceftin] 250 mg PO Q12H #20 tablet 09/10/18 03/02/20 Unknown Rx traMADoL [Ultram] 50 mg PO Q6HR PRN #10 tablet 09/10/18 03/02/20 Unknown Rx Potassium Chloride [K-Dur] 2 tab PO QDAY 30 Days #60 tablet 01/21/19 03/02/20 Unknown Rx Active Medications: Generic Name Dose Route Start Last Admin Trade Name Freq PRN Reason Stop Dose Admin Acetaminophen 650 mg 03/02/20 03:40 Tylenol PO Q4H PRN Pain MILD(1-3)/Fever >100.5/HUTCHINS Dextrose 50 ml 03/02/20 03:40 D50w (25gm) Syringe IV Q30MIN PRN Hypoglycemia Protocol Ertapenem 1 gm/ Sodium 50 mls @ 100 mls/hr 03/06/20 15:30 03/08/20 09:50 Chloride IV Not Given QDAY [facility] Insulin Human Lispro 0 unit 03/02/20 07:30 03/08/20 08:58 Humalog SUB-Q Not Given ACHS [facility] Protocol Magnesium Hydroxide 30 ml 03/02/20 03:40 Milk Of Magnesia PO Q4H PRN Constipation Morphine Sulfate 2 mg 03/02/20 03:40 Morphine IV Q4H PRN Pain, Moderate (4-6) Ondansetron HCl 4 mg 03/02/20 03:40 Zofran IV Q8H PRN Nausea And Vomiting Potassium Bicarbonate 25 meq 03/07/20 11:00 03/08/20 09:49 Klor-Con PO 25 meq QDAY IDRIS Administration Potassium Phos/Sodium Phos 1 each 03/07/20 14:00 03/08/20 07:08 Phos-Nak PO 03/09/20 06:01 1 each Q8HR IDRIS Administration Sodium Chloride 10 ml 03/02/20 10:00 03/08/20 09:49 Sodium Chloride Flush Syringe 10 Ml IV Not Given BID IDRIS Sodium Chloride 10 ml 03/02/20 03:40 Sodium Chloride Flush Syringe 10 Ml IV PRN PRN LINE FLUSH
--- NOTE | 2020-03-08 13:18 | Progress Note ---
Assessment and Plan Cultures: Blood culture 03/02/2020 ESBL E. coli COVID-19 negative A/P: 79-year-old man past medical history CKD, CVA, DM 2, obesity, chronic lymphedema family hypoxic with fevers, concern for bronchitis versus COVID-19. #Acute hypoxemic respiratory failure: Possibly secondary to COVID-19 infection. Found to be hypoxic with EMS. #ESBL E coli bacteremia: secondary to UTI #Pyuria: With associated altered mental status and fevers, likely UTI. #CKD: Renally dose antibiotics #Diabetes: tight glycemic control for best outcomes. #Pressure ulcers: Sacrum, bilateral lower extremities. Recs: -Given ESBL in blood, ertapenem 1 g every 24 hours -We will plan on 2 weeks of above ertapenem. Obtain repeat blood cultures in the morning to document clearance, midline when cultures negative for 48 hours. -Case management consulted for ertapenem 1 g every 24 hours until 03/20/2020 Thank you for the consult, we will continue to follow. Susan Deutsch MD O: [phone] F: [phone] Subjective Date of service: 03/08/20 Principal diagnosis: ALEJANDRO Interval history: Afebrile, white count elevated at 20. Repeat blood cultures negative at 24 hours. Objective - Exam Narrative Exam: Physical Exam: Constitutional: Alert, cooperative. No acute distress, obese Head, Ears, Nose: Normocephalic, atraumatic. External ears, nose normal Eyes: Conjunctivae/corneas clear. No icterus. No ptosis. Neck: Supple, no meningeal signs Oral: dentition fair, no thrush Cardiovascular: S1, S2 normal. Respiratory: Good air entry, clear to auscultation bilaterally GI: Soft, non-tender; bowel sounds normal. No peritoneal signs. Musculoskeletal: No pedal edema, no cyanosis. Skin: No rash or abscess Hem/Lymphatic: No palpable cervical or supraclavicular nodes. No lymphangitis Psych: Mood ok. Affect normal Neurological: Awake, alert, oriented. No gross abnormality - Constitutional Vitals: Vital Signs Temp Pulse Resp BP Pulse Ox 99.1 F 101 H 24 148/58 98 03/08/20 05:11 03/08/20 05:11 03/08/20 05:11 03/08/20 05:11 03/08/20 05:11 Temperature -Last 24 Hours Temperature 99.1 F Temperature 98.5 F - Labs CBC & Chem 7: 03/08/20 07:34 03/08/20 07:34 Labs: Abnormal lab results 03/07/20 03/08/20 03/08/20 Range/Units 15:37 07:34 07:34 WBC 20.0 H (4.5-11.0) K/mm3 RBC 2.67 L (3.65-5.03) M/mm3 Hgb 8.4 L (11.8-15.2) gm/dl Hct 25.5 L (35.5-45.6) % MCV 96 H (84-94) fl RDW 16.7 H (13.2-15.2) % Seg Neuts % (Manual) 86.0 H (40.0-70.0) % Lymphocytes % (Manual) 5.0 L (13.4-35.0) % Seg Neutrophils # Man 17.2 H (1.8-7.7) K/mm3 Lymphocytes # (Manual) 1.0 L (1.2-5.4) K/mm3 Basophils # (Manual) 0.2 H (0.0-0.1) K/mm3 Potassium 3.4 L D (3.6-5.0) mmol/L Carbon Dioxide 16 L (22-30) mmol/L BUN 38 H (9-20) mg/dL Creatinine 2.3 H (0.8-1.3) mg/dL
[2020-03-09] MEDS: PHOS-NAK POWDER PACKET PO SCH (07:22)
[2020-03-09] MEDS: INSULIN LISPRO 100 UNIT/ML VIAL 3 mL SUB-Q SCH ×4 (08:10→23:44)
--- NOTE | 2020-03-09 09:58 | Progress Note ---
Assessment and Plan Assessment and plan: --Covid negative --Sepsis secondary to UTI; ESBL bacteremia Continue ertapenem, contact isolation ID recommend 2 weeks of ertapenem. Stop date 03/20/2020 repeat blood cultures a.m. to document clearance, midline when cultures negative for 48 hours. --Toxic metabolic encephalopathy: Multifactorial, continue current antibiotics , supportive care --Acute on CKD stage III ; due to prerenal azotemia, vasomotor nephropathy Will monitor renal function avoid nephrotoxin, nephrology following --Diabetes Mellitus type 2; Accu-Chek sliding scale coverage ADA diet Long-acting insulin as needed, check hemoglobin A1c Sacral and LE Pressure ulcers. Wound care per wound team. --Persistent hypokalemia; 3.2 today Replenish with oral KCl, monitor electrolytes --Hypomagnesemia; received mag sulfate IV Follow electrolytes --Hypophosphatemia; Neutra-Phos 3 times a day x 6 doses Closely monitor electrolytes --Acute hypoxemic respiratory failure: Cont oxygen titrate O2 sats to more than 90%, Bipap as needed Secondary to Sepsis due to UTI, treat underlying cause --hx CVA; with residual weakness supportive care --Morbid obesity: BMI 40.4, supportive care Patient needs weight reduction program when medically stable --Chronic lymphedema; supportive care --Superficial skin erosions/erythema[stage I] hyperpigmentation Local skin care, wound care following We will closely monitor the patient and adjust management as needed Serologist recommendations noted and appreciated Plan of care reviewed with the patient and his nurse 03/04/2020. Continue ceftriaxone per ID recommendations. Follow-up blood and urine cultures. COVID-19 testing negative. Patient appears to be at baseline with creatinine. Patient with chronic kidney disease. Creatinine of 2.3 2016. Await renal ultrasound. Pt reports that he would like to sign out AMA. 03/05/2020. Patient with persistent leukocytosis. Blood cultures revealed E. coli. Await sensitivities for E. coli bacteremia. ID following. Await renal ultrasound results 03/06; blood cultures positive for ESBL E. coli, ID recommendations noted, antib iotics adjusted to ertapenem, contact isolation 03/07; multiple electrolyte abnormalities, correct per protocols and follow electrolytes, sepsis due to UTI ESBL, ID recommended 2 weeks of ertapenem Request midline and cultures negative more than 48 hours 03/08; awaiting discharge planning, midline placement for long-term home IV antibiotics recommended by CRISTIANO TORO assisting with DC planning 03/09; patient received midline for long-term home antibiotics, DC planning per case management History Interval history: I have seen and examined the patient at the bedside Patient's chart and medications reviewed ESBL bacteremia secondary to UTI Contact isolation and IV ertapenem Patient has no new complaints Vital signs noted Midline placement for long-term antibiotics Hospitalist Physical - Constitutional Vitals: Temp Pulse Resp BP Pulse Ox 98.0 F 101 H 28 H 152/81 97 03/08/20 21:43 03/08/20 21:43 03/08/20 21:43 03/08/20 21:43 03/08/20 21:43 General appearance: Present: no acute distress, well-nourished, obese (Morbidly obese) - EENT Eyes: Present: PERRL, EOM intact - Neck Neck: Present: supple, normal ROM - Respiratory Respiratory effort: normal Respiratory: bilateral: diminished, negative: rales, rhonchi, wheezing - Cardiovascular Rhythm: regular Heart Sounds: Present: S1 & S2 - Extremities Extremities: no ischemia, No edema - Abdominal General gastrointestinal: soft, non-tender, non-distended, normal bowel sounds - Integumentary Integumentary: Present: clear, warm - Psychiatric Psychiatric: appropriate mood/affect, cooperative - Neurologic Neurologic: moves all extremities Results - Labs CBC & Chem 7: 03/09/20 14:26 03/09/20 14:26 Labs: Laboratory Last Values WBC 20.0 K/mm3 (4.5-11.0) H 03/08/20 07:34 RBC 2.67 M/mm3 (3.65-5.03) L 03/08/20 07:34 Hgb 8.4 gm/dl (11.8-15.2) L 03/08/20 07:34 Hct 25.5 % (35.5-45.6) L 03/08/20 07:34 MCV 96 fl (84-94) H 03/08/20 07:34 MCH 32 pg (28-32) 03/08/20 07:34 MCHC 33 % (32-34) 03/08/20 07:34 RDW 16.7 % (13.2-15.2) H 03/08/20 07:34 Plt Count 319 K/mm3 (140-440) 03/08/20 07:34 Lymph % (Auto) 16.1 % (13.4-35.0) 03/07/20 05:31 [place] % (Auto) 8.8 % (0.0-7.3) H 03/07/20 05:31 Eos % (Auto) 2.1 % (0.0-4.3) 03/07/20 05:31 Baso % (Auto) 1.0 % (0.0-1.8) 03/07/20 05:31 Lymph # (Auto) 2.4 K/mm3 (1.2-5.4) 03/07/20 05:31 [place] # (Auto) 1.3 K/mm3 (0.0-0.8) H 03/07/20 05:31 Eos # (Auto) 0.3 K/mm3 (0.0-0.4) 03/07/20 05:31 Baso # (Auto) 0.1 K/mm3 (0.0-0.1) 03/07/20 05:31 Add Manual Diff Complete 03/08/20 07:34 Total Counted 100 03/08/20 07:34 Seg Neutrophils % 72.0 % (40.0-70.0) H 03/07/20 05:31 Seg Neuts % (Manual) 86.0 % (40.0-70.0) H 03/08/20 07:34 Band Neutrophils % 2.0 % 03/08/20 07:34 Lymphocytes % (Manual) 5.0 % (13.4-35.0) L 03/08/20 07:34 Reactive Lymphs % (Man) 1.0 % 03/08/20 07:34 Monocytes % (Manual) 4.0 % (0.0-7.3) 03/08/20 07:34 Eosinophils % (Manual) 1.0 % (0.0-4.3) 03/08/20 07:34 Basophils % (Manual) 1.0 % (0.0-1.8) 03/08/20 07:34 Metamyelocytes % 0 % 03/08/20 07:34 Myelocytes % 0 % 03/08/20 07:34 Promyelocytes % 0 % 03/08/20 07:34 Blast Cells % 0 % 03/08/20 07:34 Nucleated RBC % Not Reportable 03/08/20 07:34 Seg Neutrophils # 10.8 K/mm3 (1.8-7.7) H 03/07/20 05:31 Seg Neutrophils # Man 17.2 K/mm3 (1.8-7.7) H 03/08/20 07:34 Band Neutrophils # 0.4 K/mm3 03/08/20 07:34 Lymphocytes # (Manual) 1.0 K/mm3 (1.2-5.4) L 03/08/20 07:34 Abs React Lymphs (Man) 0.2 K/mm3 03/08/20 07:34 Monocytes # (Manual) 0.8 K/mm3 (0.0-0.8) 03/08/20 07:34 Eosinophils # (Manual) 0.2 K/mm3 (0.0-0.4) 03/08/20 07:34 Basophils # (Manual) 0.2 K/mm3 (0.0-0.1) H 03/08/20 07:34 Metamyelocytes # 0.0 K/mm3 03/08/20 07:34 Myelocytes # 0.0 K/mm3 03/08/20 07:34 Promyelocytes # 0.0 K/mm3 03/08/20 07:34 Blast Cells # 0.0 K/mm3 03/08/20 07:34 WBC Morphology Not Reportable 03/08/20 07:34 Hypersegmented Neuts Not Reportable 03/08/20 07:34 Hyposegmented Neuts Not Reportable 03/08/20 07:34 Hypogranular Neuts Not Reportable 03/08/20 07:34 Smudge Cells Not Reportable 03/08/20 07:34 Toxic Granulation Not Reportable 03/08/20 07:34 Toxic Vacuolation Not Reportable 03/08/20 07:34 Dohle Bodies Not Reportable 03/08/20 07:34 Pelger-Huet Anomaly Not Reportable 03/08/20 07:34 Santiago Rods Not Reportable 03/08/20 07:34 Platelet Estimate Consistent w auto 03/08/20 07:34 Clumped Platelets Not Reportable 03/08/20 07:34 Plt Clumps, EDTA Not Reportable 03/08/20 07:34 Large Platelets Not Reportable 03/08/20 07:34 Giant Platelets Not Reportable 03/08/20 07:34 Platelet Satelliting Not Reportable 03/08/20 07:34 Plt Morphology Comment Not Reportable 03/08/20 07:34 RBC Morphology Not Reportable 03/08/20 07:34 Dimorphic RBCs Not Reportable 03/08/20 07:34 Polychromasia Few 03/08/20 07:34 Hypochromasia Not Reportable 03/08/20 07:34 Poikilocytosis Not Reportable 03/08/20 07:34 Anisocytosis Not Reportable 03/08/20 07:34 Microcytosis Not Reportable 03/08/20 07:34 Macrocytosis 1+ 03/08/20 07:34 Spherocytes Not Reportable 03/08/20 07:34 Pappenheimer Bodies Not Reportable 03/08/20 07:34 Sickle Cells Not Reportable 03/08/20 07:34 Target Cells Not Reportable 03/08/20 07:34 Tear Drop Cells Not Reportable 03/08/20 07:34 Ovalocytes Few 03/08/20 07:34 Helmet Cells Not Reportable 03/08/20 07:34 Smith-Safford Bodies Not Reportable 03/08/20 07:34 Placedo Rings Not Reportable 03/08/20 07:34 [place] Cells Not Reportable 03/08/20 07:34 Bite Cells Not Reportable 03/08/20 07:34 Crenated Cell Not Reportable 03/08/20 07:34 Elliptocytes Few 03/08/20 07:34 Acanthocytes (Spur) Not Reportable 03/08/20 07:34 Rouleaux Not Reportable 03/08/20 07:34 Hemoglobin C Crystals Not Reportable 03/08/20 07:34 Schistocytes Rare 03/08/20 07:34 Malaria parasites Not Reportable 03/08/20 07:34 Isauro Bodies Not Reportable 03/08/20 07:34 Hem Pathologist Commnt No 03/08/20 07:34 PT 15.8 Sec. (12.2-14.9) H 03/03/20 04:28 INR 1.23 (0.87-1.13) H 03/03/20 04:28 APTT 34.9 Sec. (24.2-36.6) 03/02/20 01:52 Sodium 139 mmol/L (137-145) 03/08/20 07:34 Potassium 3.7 mmol/L (3.6-5.0) 03/08/20 07:34 Chloride 106.6 mmol/L (98-107) 03/08/20 07:34 Carbon Dioxide 16 mmol/L (22-30) L 03/08/20 07:34 Anion Gap 20 mmol/L 03/08/20 07:34 BUN 38 mg/dL (9-20) H 03/08/20 07:34 Creatinine 2.3 mg/dL (0.8-1.3) H 03/08/20 07:34 Estimated GFR 33 ml/min 03/08/20 07:34 BUN/Creatinine Ratio 17 % 03/08/20 07:34 Glucose 95 mg/dL (75-100) 03/08/20 07:34 POC Glucose 99 mg/dL (70-105) 03/09/20 07:48 Lactic Acid 0.60 mmol/L (0.7-2.0) L 03/02/20 08:03 Calcium 9.5 mg/dL (8.4-10.2) 03/08/20 07:34 Phosphorus 2.20 mg/dL (2.5-4.5) L 03/07/20 05:31 Magnesium 1.90 mg/dL (1.7-2.3) 03/07/20 15:37 Ferritin 601.2 ng/mL (30.0-300.0) H 03/02/20 01:52 Total Bilirubin 0.40 mg/dL (0.1-1.2) 03/03/20 04:28 AST 24 units/L (5-40) 03/03/20 04:28 ALT 15 units/L (7-56) 03/03/20 04:28 Alkaline Phosphatase 132 units/L (35-129) H 03/03/20 04:28 Lactate Dehydrogenase 251 units/L (91-180) H 03/02/20 08:03 Total Creatine Kinase 34 units/L (55-170) L 03/02/20 01:52 C-Reactive Protein 2.00 mg/dL (0.00-1.30) H 03/02/20 01:52 C-Reactive Protein 2.20 mg/dL (0.00-1.30) H 03/02/20 01:52 Total Protein 6.0 g/dL (6.3-8.2) L 03/03/20 04:28 Albumin 2.6 g/dL (3.9-5) L 03/03/20 04:28 Albumin/Globulin Ratio 0.8 % 03/03/20 04:28 Procalcitonin 3.07 ng/mL (<0.15) 03/02/20 01:52 TSH 0.885 mlU/mL (0.270-4.200) 03/02/20 01:52 Urine Color Yellow (Yellow) 03/02/20 Unknown Urine Turbidity Cloudy (Clear) 03/02/20 Unknown Urine pH 5.0 (5.0-7.0) 03/02/20 Unknown Ur Specific [place] 1.010 (1.003-1.030) 03/02/20 Unknown Urine Protein 100 mg/dl mg/dL (Negative) 03/02/20 Unknown Urine Glucose (UA) Neg mg/dL (Negative) 03/02/20 Unknown Urine Ketones Neg mg/dL (Negative) 03/02/20 Unknown Urine Blood Sm (Negative) 03/02/20 Unknown Urine Nitrite Pos (Negative) 03/02/20 Unknown Urine Bilirubin Neg (Negative) 03/02/20 Unknown Urine Urobilinogen < 2.0 mg/dL (<2.0) 03/02/20 Unknown Ur Leukocyte Esterase Lg (Negative) 03/02/20 Unknown Urine WBC (Auto) > 182.0 /HPF (0.0-6.0) H 03/02/20 Unknown Urine RBC (Auto) 15.0 /HPF (0.0-6.0) 03/02/20 Unknown U Epithel Cells (Auto) 2.0 /HPF (0-13.0) 03/02/20 Unknown Urine Bacteria (Auto) 4+ /HPF (Negative) 03/02/20 Unknown Hyaline Casts 1 /LPF 03/02/20 Unknown Urine Mucus Few /HPF 03/02/20 Unknown Coronavirus (PCR) Negative (Negative) 03/02/20 10:44 Microbiology: Microbiology 03/07/20 07:21 Peripheral/Venous Blood Culture - Preliminary NO GROWTH AFTER 48 HOURS 03/07/20 05:31 Peripheral/Venous Blood Culture - Preliminary NO GROWTH AFTER 48 HOURS Cunningham/IV: Voiding Method Incontinent IV Catheter Type [Left Upper INT / Saline Lock arm] IV Catheter Type [Left INT / Saline Lock Antecubital] Active Medications - Current Medications Current Medications: Generic Name Dose Route Start Last Admin Trade Name Freq PRN Reason Stop Dose Admin Acetaminophen 650 mg 03/02/20 03:40 Tylenol PO Q4H PRN Pain MILD(1-3)/Fever >100.5/HUTCHINS Dextrose 50 ml 03/02/20 03:40 D50w (25gm) Syringe IV Q30MIN PRN Hypoglycemia Protocol Ertapenem 1 gm/ Sodium 50 mls @ 100 mls/hr 03/06/20 15:30 03/08/20 18:35 Chloride IV 100 mls/hr QDAY IDRIS Administration Insulin Human Lispro 0 unit 03/02/20 07:30 03/09/20 08:10 Humalog SUB-Q Not Given ACHS IDRIS Protocol Magnesium Hydroxide 30 ml 03/02/20 03:40 Milk Of Magnesia PO Q4H PRN Constipation Morphine Sulfate 2 mg 03/02/20 03:40 Morphine IV Q4H PRN Pain, Moderate (4-6) Ondansetron HCl 4 mg 03/02/20 03:40 Zofran IV Q8H PRN Nausea And Vomiting Potassium Bicarbonate 25 meq 03/07/20 11:00 03/08/20 09:49 Klor-Con PO 25 meq QDAY IDRIS Administration Sodium Chloride 10 ml 03/02/20 10:00 03/08/20 22:04 Sodium Chloride Flush Syringe 10 Ml IV 10 ml BID IDRIS Administration Sodium Chloride 10 ml 03/02/20 03:40 Sodium Chloride Flush Syringe 10 Ml IV PRN PRN LINE FLUSH Nutrition/Malnutrition Assess - Dietary Evaluation Nutrition/Malnutrition Findings: Nutrition Notes Start: 03/02/20 10:33 Freq: Status: Active Protocol: Document 03/02/20 10:33 LM (Rec: 03/02/20 10:43 LM [id number]) Nutrition Notes Need for Assessment generated from: MD Order Initial or Follow up Assessment Current Diagnosis CKD(stage I-IV),Diabetes, Sepsis,Hypertension Other Pertinent Diagnosis Suspected COVID-19, UTI, multiple skin ulcers Current Diet Cardiac/consistent CHO Labs/Tests K 2.8 BUN 59 Cr 2.3 Pertinent Medications Reviewed Height 5 ft 8 in Weight 121.5 kg [place] Body Weight (kg) 70.00 BMI 40.7 Weight Status Morbidly Obese Subjective/Other Information MD consult for diet education. Unable to reach pt by phone. Pt has several skin ulcers, belem score is 14. Pt also has LE edema. Burn Absent Trauma Absent Minimum of two criteria No Fluid Accumulation Mild (non-severe) #1 Nutrition Diagnosis Increased nutrient needs ( specify in comment below) Comments: Protein Etiology Wound healing As Evidenced by Signs and Symptoms Pt with multiple skin ulcers Is patient on ventilator? No Is Patient Ambulatory and/or Out of Bed No REE-([facility]-confined to bed) 2279.724 Kcal/Kg value to use for calculation 15 Approximate Energy Requirements Using 1823 kcal/Kg Calculation Used for Recommendations Kcal/kg Additional Notes Protein: 77-144g (0.8-1.5g/kg using AdjBW of 96kg) Fluid: 1ml/kcal Nutrition Intervention Change Diet Order: Continue Goal #1 Meet at least 75% of energy and protein needs Goal #2 Wound healing Anticipated Discharge Needs: cardiac/consistent CHO Follow-Up By: 03/13/20 Additional Comments F/U for intakes, diet education
[2020-03-09] MEDS: ERTAPENEM 1 GM in SODIUM CHLORIDE 0.9% 50 ML IV SCH (11:01)
[2020-03-09] MEDS: K-LYTE 25 MEQ TABLET EFF PO SCH (11:02)
--- NOTE | 2020-03-09 13:06 | Progress Note ---
Assessment and Plan Cultures: Blood culture 03/02/2020 ESBL E. coli COVID-19 negative A/P: 79-year-old man past medical history CKD, CVA, DM 2, obesity, chronic lymphedema family hypoxic with fevers, concern for bronchitis versus COVID-19. #Acute hypoxemic respiratory failure: Possibly secondary to COVID-19 infection. Found to be hypoxic with EMS. #ESBL E coli bacteremia: secondary to UTI #Pyuria: With associated altered mental status and fevers, likely UTI. #CKD: Renally dose antibiotics #Diabetes: tight glycemic control for best outcomes. #Pressure ulcers: Sacrum, bilateral lower extremities. Recs: -Given ESBL in blood, ertapenem 1 g every 24 hours -Case management consulted for ertapenem 1 g every 24 hours until 03/20/2020 -Ordered midline OK to DC when midline and home antibiotics arranged. Thank you for the consult, we will continue to follow. Susan Deutsch MD O: [phone] F: [phone] Subjective Date of service: 03/09/20 Principal diagnosis: ALEJANDRO Interval history: Afebrile, blood cultures remain negative. No other issues at the present time. Objective - Exam Narrative Exam: Physical Exam: Constitutional: Alert, cooperative. No acute distress, obese Head, Ears, Nose: Normocephalic, atraumatic. Eyes: Conjunctivae/corneas clear. No icterus. No ptosis. Neck: Supple, no meningeal signs Oral: dentition fair, no thrush Cardiovascular: S1, S2 normal. Respiratory: Good air entry, clear to auscultation bilaterally GI: Soft, non-tender; bowel sounds normal. No peritoneal signs. Musculoskeletal: No pedal edema, no cyanosis. Skin: No rash or abscess Hem/Lymphatic: No palpable cervical or supraclavicular nodes. No lymphangitis Psych: Mood ok. Affect normal Neurological: Awake, alert, oriented. No gross abnormality - Constitutional Vitals: Vital Signs Temp Pulse Resp BP Pulse Ox 98.0 F 98 H 24 147/60 97 03/09/20 11:57 03/09/20 11:57 03/09/20 11:57 03/09/20 11:57 03/09/20 11:57 Temperature -Last 24 Hours Temperature 98.0 F Temperature 97.6 F Temperature 98.0 F Temperature 98.4 F - Labs CBC & Chem 7: 03/08/20 07:34 03/08/20 07:34 Labs: Abnormal lab results 03/08/20 03/08/20 03/09/20 Range/Units 17:34 22:00 12:10 POC Glucose 143 H 154 H 139 H (70-105) mg/dL
--- NOTE | 2020-03-09 14:40 | Progress Note ---
Assessment and Plan Assessment: ALEJANDRO on CKD likely prerenal azoetimia Metabolic acidoses Hypokalemia Hypomagnesemia UTI Plan: No new labs noted for today. Yesterday's serum creatinine was 2.3, stable, non-oliguric Replace potassium as needed, on Klor-Con 25 meq po daily Renal US- no obstruction Strict I&O monitoring Obtain daily weights Renally dose meds Avoid nephrotoxic agents Continue to monitor Awaiting antibiotics arrangements for discharge Subjective Date of service: 03/09/20 Principal diagnosis: ALEJANDRO Interval history: Patient resting in bed. Objective - Vital Signs Vital signs: Vital Signs - 12hr 03/09/20 03/09/20 06:03 11:57 Temperature 97.6 F 98.0 F Pulse Rate 95 H 98 H Respiratory 20 24 Rate Blood Pressure 143/64 147/60 O2 Sat by Pulse 95 97 Oximetry - General Appearance General appearance: well-developed, fatigue EENT: ATNC Neck: no JVD, supple Respiratory: Present: Decreased Breath Sounds Gastrointestinal: normoactive bowel sounds Integumentary: warm and dry, other (has skin peeling) Neurologic: alert and oriented x3 Musculoskeletal: joint swelling - Lab 03/08/20 07:34 03/08/20 07:34 Most recent lab results Calcium 9.5 mg/dL (8.4-10.2) 03/08/20 07:34 Phosphorus 2.20 mg/dL (2.5-4.5) L 03/07/20 05:31 Magnesium 1.90 mg/dL (1.7-2.3) 03/07/20 15:37 Medications & Allergies - Medications Allergies/Adverse Reactions: Allergies diclofenac [Diclofenac] Allergy (Verified 10/05/18 08:11) Rash Home Medications: Home Medications Medication Instructions Recorded Confirmed Last Taken Type Baclofen [Lioresal] 10 mg PO BID 04/02/13 03/02/20 04/02/13 History Acetaminophen [Acetaminophen TAB] 650 mg PO Q4H PRN #1 tablet 02/28/17 03/02/20 Unknown Rx Aspirin [Aspirin BABY CHEW TAB] 81 mg PO DAILY #1 tab.chew 02/28/17 03/02/20 Unknown Rx DAPTOmycin 246 mg IV Q24H #1 vial 02/28/17 03/02/20 Unknown Rx Ferrous Sulfate [Feosol 325 MG tab] 325 mg PO QDAY #1 tablet 02/28/17 03/02/20 Unknown Rx Gabapentin 300 mg PO Q8HR #1 capsule 02/28/17 03/02/20 Unknown Rx Ondansetron [Zofran INJ] 4 mg IV Q8H PRN #1 vial 02/28/17 03/02/20 Unknown Rx Goeppbxgduqf-Doad-Srlbddyo,Iso 2.25 gm IV Q6HR #10 froz.piggy 02/28/17 03/02/20 Unknown Rx [Zosyn 2.25 gm/50 ml Galaxy Bag] Sodium Hypochlorite [Dakin's Half 1 applic TP Q12H PRN #1 bottle 02/28/17 03/02/20 Unknown Rx Strength] amLODIPine 10 mg PO DAILY #1 tablet 02/28/17 03/02/20 Unknown Rx cefUROXime [Ceftin] 250 mg PO Q12H #20 tablet 09/10/18 03/02/20 Unknown Rx traMADoL [Ultram] 50 mg PO Q6HR PRN #10 tablet 09/10/18 03/02/20 Unknown Rx Potassium Chloride [K-Dur] 2 tab PO QDAY 30 Days #60 tablet 01/21/19 03/02/20 Unknown Rx Active Medications: Generic Name Dose Route Start Last Admin Trade Name Freq PRN Reason Stop Dose Admin Acetaminophen 650 mg 03/02/20 03:40 Tylenol PO Q4H PRN Pain MILD(1-3)/Fever >100.5/HUTCHINS Dextrose 50 ml 03/02/20 03:40 D50w (25gm) Syringe IV Q30MIN PRN Hypoglycemia Protocol Ertapenem 1 gm/ Sodium 50 mls @ 100 mls/hr 03/06/20 15:30 03/09/20 11:30 Chloride IV 03/20/20 10:29 100 mls/hr QDAY IDRIS Infusion Insulin Human Lispro 0 unit 03/02/20 07:30 03/09/20 12:20 Humalog SUB-Q Not Given ACHS [facility] Protocol Magnesium Hydroxide 30 ml 03/02/20 03:40 Milk Of Magnesia PO Q4H PRN Constipation Morphine Sulfate 2 mg 03/02/20 03:40 Morphine IV Q4H PRN Pain, Moderate (4-6) Ondansetron HCl 4 mg 03/02/20 03:40 Zofran IV Q8H PRN Nausea And Vomiting Potassium Bicarbonate 25 meq 03/07/20 11:00 03/09/20 11:02 Klor-Con PO 25 meq QDAY IDRIS Administration Sodium Chloride 10 ml 03/02/20 10:00 03/09/20 11:01 Sodium Chloride Flush Syringe 10 Ml IV 10 ml BID IDRIS Administration Sodium Chloride 10 ml 03/02/20 03:40 Sodium Chloride Flush Syringe 10 Ml IV PRN PRN LINE FLUSH
[2020-03-09 15:29] LABS: Basophils # (Auto) 0.1 K/mm3 (0.0-0.1); Basophils % (Auto) 0.5 % (0.0-1.8); Eosinophils # (Auto) 0.5 K/mm3 (0.0-0.4); Eosinophils % (Auto) 2.4 % (0.0-4.3); Hematocrit 26.4 % (35.5-45.6); Hemoglobin 8.5 gm/dl (11.8-15.2); Lymphocytes # (Auto) 2.6 K/mm3 (1.2-5.4); Mean Corpuscular HGB Conc 32 % (32-34); Mean Corpuscular Volume 96 fl (84-94); Monocytes # (Auto) 1.1 K/mm3 (0.0-0.8); Monocytes % (Auto) 5.7 % (0.0-7.3); Platelet Count 323 K/mm3 (140-440); Red Blood Count 2.75 M/mm3 (3.65-5.03)
[2020-03-09 15:33] LABS: Calcium 8.9 mg/dL (8.4-10.2)
[2020-03-09] MEDS ORDERED: POTASSIUM CHLORIDE ER 20 MEQ TAB PO ONE (21:02)
--- NOTE | 2020-03-10 08:25 | Progress Note ---
Assessment and Plan ALEJANDRO on CKD likely prerenal azoetimia Metabolic acidoses Hypokalemia Hypomagnesemia UTI Plan: cont to have stable kidny function, non-oliguric Renal US- no obstruction Strict I&O monitoring Obtain daily weights Renally dose meds Avoid nephrotoxic agents Continue to monitor Subjective Date of service: 03/10/20 Principal diagnosis: ALEJANDRO Interval history: cont to have foot pain Objective - Vital Signs Vital signs: Vital Signs - 12hr 03/09/20 03/10/20 22:35 06:44 Temperature 98.7 F 97.8 F Pulse Rate 97 H 92 H Respiratory 20 20 Rate Blood Pressure 130/59 138/62 O2 Sat by Pulse 94 93 Oximetry - Lab 03/09/20 14:26 03/09/20 14:26 Most recent lab results Calcium 8.9 mg/dL (8.4-10.2) 03/09/20 14:26 Phosphorus 2.20 mg/dL (2.5-4.5) L 03/07/20 05:31 Magnesium 1.90 mg/dL (1.7-2.3) 03/07/20 15:37 Medications & Allergies - Medications Allergies/Adverse Reactions: Allergies diclofenac [Diclofenac] Allergy (Verified 10/05/18 08:11) Rash Home Medications: Home Medications Medication Instructions Recorded Confirmed Last Taken Type Baclofen [Lioresal] 10 mg PO BID 04/02/13 03/02/20 04/02/13 History Acetaminophen [Acetaminophen TAB] 650 mg PO Q4H PRN #1 tablet 02/28/17 03/02/20 Unknown Rx Aspirin [Aspirin BABY CHEW TAB] 81 mg PO DAILY #1 tab.chew 02/28/17 03/02/20 Unknown Rx DAPTOmycin 246 mg IV Q24H #1 vial 02/28/17 03/02/20 Unknown Rx Ferrous Sulfate [Feosol 325 MG tab] 325 mg PO QDAY #1 tablet 02/28/17 03/02/20 Unknown Rx Gabapentin 300 mg PO Q8HR #1 capsule 02/28/17 03/02/20 Unknown Rx Ondansetron [Zofran INJ] 4 mg IV Q8H PRN #1 vial 02/28/17 03/02/20 Unknown Rx Yerlsvwuitgm-Fxoq-Ihqlndau,Iso 2.25 gm IV Q6HR #10 froz.piggy 02/28/17 03/02/20 Unknown Rx [Zosyn 2.25 gm/50 ml Galaxy Bag] Sodium Hypochlorite [Dakin's Half 1 applic TP Q12H PRN #1 bottle 02/28/17 03/02/20 Unknown Rx Strength] amLODIPine 10 mg PO DAILY #1 tablet 02/28/17 03/02/20 Unknown Rx cefUROXime [Ceftin] 250 mg PO Q12H #20 tablet 09/10/18 03/02/20 Unknown Rx traMADoL [Ultram] 50 mg PO Q6HR PRN #10 tablet 09/10/18 03/02/20 Unknown Rx Potassium Chloride [K-Dur] 2 tab PO QDAY 30 Days #60 tablet 01/21/19 03/02/20 Unknown Rx Active Medications: Generic Name Dose Route Start Last Admin Trade Name Freq PRN Reason Stop Dose Admin Acetaminophen 650 mg 03/02/20 03:40 Tylenol PO Q4H PRN Pain MILD(1-3)/Fever >100.5/HUTCHINS Dextrose 50 ml 03/02/20 03:40 D50w (25gm) Syringe IV Q30MIN PRN Hypoglycemia Protocol Ertapenem 1 gm/ Sodium 50 mls @ 100 mls/hr 03/06/20 15:30 03/09/20 12:00 Chloride IV 03/20/20 10:29 Infused QDAY IDRIS Infusion Insulin Human Lispro 0 unit 03/02/20 07:30 03/09/20 23:44 Humalog SUB-Q Not Given ACHS [facility] Protocol Magnesium Hydroxide 30 ml 03/02/20 03:40 Milk Of Magnesia PO Q4H PRN Constipation Morphine Sulfate 2 mg 03/02/20 03:40 03/10/20 05:50 Morphine IV 2 mg Q4H PRN Administration Pain, Moderate (4-6) Ondansetron HCl 4 mg 03/02/20 03:40 Zofran IV Q8H PRN Nausea And Vomiting Potassium Bicarbonate 25 meq 03/07/20 11:00 03/09/20 11:02 Klor-Con PO 25 meq QDAY IDRIS Administration Sodium Chloride 10 ml 03/02/20 10:00 03/09/20 22:59 Sodium Chloride Flush Syringe 10 Ml IV 10 ml BID IDRIS Administration Sodium Chloride 10 ml 03/02/20 03:40 Sodium Chloride Flush Syringe 10 Ml IV PRN PRN LINE FLUSH
[2020-03-10] MEDS: INSULIN LISPRO 100 UNIT/ML VIAL 3 mL SUB-Q SCH ×3 (10:22→19:00)
[2020-03-10] MEDS: ERTAPENEM 1 GM in SODIUM CHLORIDE 0.9% 50 ML IV SCH (10:28)
[2020-03-10] MEDS: K-LYTE 25 MEQ TABLET EFF PO SCH (10:28)
--- NOTE | 2020-03-10 10:31 | Progress Note ---
Assessment and Plan Assessment and plan: --Covid negative --Sepsis secondary to UTI; ESBL bacteremia Continue ertapenem, contact isolation ID recommend 2 weeks of ertapenem. Stop date 03/20/2020 repeat blood cultures a.m. to document clearance, midline when cultures negative for 48 hours. --Toxic metabolic encephalopathy: Multifactorial, continue current antibiotics , supportive care --Acute on CKD stage III ; due to prerenal azotemia, vasomotor nephropathy Will monitor renal function avoid nephrotoxin, nephrology following --Diabetes Mellitus type 2; Accu-Chek sliding scale coverage ADA diet Long-acting insulin as needed, check hemoglobin A1c Sacral and LE Pressure ulcers. Wound care per wound team. --Persistent hypokalemia; 3.2 today Replenish with oral KCl, monitor electrolytes --Hypomagnesemia; received mag sulfate IV Follow electrolytes --Hypophosphatemia; Neutra-Phos 3 times a day x 6 doses Closely monitor electrolytes --Acute hypoxemic respiratory failure: Cont oxygen titrate O2 sats to more than 90%, Bipap as needed Secondary to Sepsis due to UTI, treat underlying cause --hx CVA; with residual weakness supportive care --Morbid obesity: BMI 40.4, supportive care Patient needs weight reduction program when medically stable --Chronic lymphedema; supportive care --Superficial skin erosions/erythema[stage I] hyperpigmentation Local skin care, wound care following We will closely monitor the patient and adjust management as needed Residential Nurse recommendations noted and appreciated Plan of care reviewed with the patient and his nurse 03/04/2020. Continue ceftriaxone per ID recommendations. Follow-up blood and urine cultures. COVID-19 testing negative. Patient appears to be at baseline with creatinine. Patient with chronic kidney disease. Creatinine of 2.3 2016. Await renal ultrasound. Pt reports that he would like to sign out AMA. 03/05/2020. Patient with persistent leukocytosis. Blood cultures revealed E. coli. Await sensitivities for E. coli bacteremia. ID following. Await renal ultrasound results 03/06; blood cultures positive for ESBL E. coli, ID recommendations noted, antib iotics adjusted to ertapenem, contact isolation 03/07; multiple electrolyte abnormalities, correct per protocols and follow electrolytes, sepsis due to UTI ESBL, ID recommended 2 weeks of ertapenem Request midline and cultures negative more than 48 hours 03/08; awaiting discharge planning, midline placement for long-term home IV antibiotics recommended by CRISTIANO TORO assisting with DC planning 03/09; patient received midline for long-term home antibiotics, DC planning per case management 03/10; patient is stable awaiting discharge planning with long-term home antibiotics stop date 03/20/2020 Hospitalist Physical - Constitutional Vitals: Temp Pulse Resp BP Pulse Ox 97.8 F 92 H 20 138/62 93 03/10/20 06:44 03/10/20 06:44 03/10/20 06:44 03/10/20 06:44 03/10/20 06:44 General appearance: Present: no acute distress, well-nourished, obese (Morbidly obese) Results - Labs CBC & Chem 7: 03/09/20 14:26 03/09/20 14:26 Labs: Laboratory Last Values WBC 18.7 K/mm3 (4.5-11.0) H 03/09/20 14:26 RBC 2.75 M/mm3 (3.65-5.03) L 03/09/20 14:26 Hgb 8.5 gm/dl (11.8-15.2) L 03/09/20 14:26 Hct 26.4 % (35.5-45.6) L 03/09/20 14: MCV 96 fl (84-94) H 03/09/20 14:26 MCH 31 pg (28-32) 03/09/20 14: MCHC 32 % (32-34) 03/09/20 14:26 RDW 17.0 % (13.2-15.2) H 03/09/20 14:26 Plt Count 323 K/mm3 (140-440) 03/09/20 14:26 Lymph % (Auto) 14.0 % (13.4-35.0) 03/09/20 14:26 [place] % (Auto) 5.7 % (0.0-7.3) 03/09/20 14:26 Eos % (Auto) 2.4 % (0.0-4.3) 03/09/20 14:26 Baso % (Auto) 0.5 % (0.0-1.8) 03/09/20 14:26 Lymph # (Auto) 2.6 K/mm3 (1.2-5.4) 03/09/20 14:26 [place] # (Auto) 1.1 K/mm3 (0.0-0.8) H 03/09/20 14:26 Eos # (Auto) 0.5 K/mm3 (0.0-0.4) H 03/09/20 14:26 Baso # (Auto) 0.1 K/mm3 (0.0-0.1) 03/09/20 14:26 Add Manual Diff Complete 03/08/20 07:34 Total Counted 100 03/08/20 07:34 Seg Neutrophils % 77.4 % (40.0-70.0) H 03/09/20 14:26 Seg Neuts % (Manual) 86.0 % (40.0-70.0) H 03/08/20 07:34 Band Neutrophils % 2.0 % 03/08/20 07:34 Lymphocytes % (Manual) 5.0 % (13.4-35.0) L 03/08/20 07:34 Reactive Lymphs % (Man) 1.0 % 03/08/20 07:34 Monocytes % (Manual) 4.0 % (0.0-7.3) 03/08/20 07:34 Eosinophils % (Manual) 1.0 % (0.0-4.3) 03/08/20 07:34 Basophils % (Manual) 1.0 % (0.0-1.8) 03/08/20 07:34 Metamyelocytes % 0 % 03/08/20 07:34 Myelocytes % 0 % 03/08/20 07:34 Promyelocytes % 0 % 03/08/20 07:34 Blast Cells % 0 % 03/08/20 07:34 Nucleated RBC % Not Reportable 03/08/20 07:34 Seg Neutrophils # 14.5 K/mm3 (1.8-7.7) H 03/09/20 14:26 Seg Neutrophils # Man 17.2 K/mm3 (1.8-7.7) H 03/08/20 07:34 Band Neutrophils # 0.4 K/mm3 03/08/20 07:34 Lymphocytes # (Manual) 1.0 K/mm3 (1.2-5.4) L 03/08/20 07:34 Abs React Lymphs (Man) 0.2 K/mm3 03/08/20 07:34 Monocytes # (Manual) 0.8 K/mm3 (0.0-0.8) 03/08/20 07:34 Eosinophils # (Manual) 0.2 K/mm3 (0.0-0.4) 03/08/20 07:34 Basophils # (Manual) 0.2 K/mm3 (0.0-0.1) H 03/08/20 07:34 Metamyelocytes # 0.0 K/mm3 03/08/20 07:34 Myelocytes # 0.0 K/mm3 03/08/20 07:34 Promyelocytes # 0.0 K/mm3 03/08/20 07:34 Blast Cells # 0.0 K/mm3 03/08/20 07:34 WBC Morphology Not Reportable 03/08/20 07:34 Hypersegmented Neuts Not Reportable 03/08/20 07:34 Hyposegmented Neuts Not Reportable 03/08/20 07:34 Hypogranular Neuts Not Reportable 03/08/20 07:34 Smudge Cells Not Reportable 03/08/20 07:34 Toxic Granulation Not Reportable 03/08/20 07:34 Toxic Vacuolation Not Reportable 03/08/20 07:34 Dohle Bodies Not Reportable 03/08/20 07:34 Pelger-Huet Anomaly Not Reportable 03/08/20 07:34 Santiaog Rods Not Reportable 03/08/20 07:34 Platelet Estimate Consistent w auto 03/08/20 07:34 Clumped Platelets Not Reportable 03/08/20 07:34 Plt Clumps, EDTA Not Reportable 03/08/20 07:34 Large Platelets Not Reportable 03/08/20 07:34 Giant Platelets Not Reportable 03/08/20 07:34 Platelet Satelliting Not Reportable 03/08/20 07:34 Plt Morphology Comment Not Reportable 03/08/20 07:34 RBC Morphology Not Reportable 03/08/20 07:34 Dimorphic RBCs Not Reportable 03/08/20 07:34 Polychromasia Few 03/08/20 07:34 Hypochromasia Not Reportable 03/08/20 07:34 Poikilocytosis Not Reportable 03/08/20 07:34 Anisocytosis Not Reportable 03/08/20 07:34 Microcytosis Not Reportable 03/08/20 07:34 Macrocytosis 1+ 03/08/20 07:34 Spherocytes Not Reportable 03/08/20 07:34 Pappenheimer Bodies Not Reportable 03/08/20 07:34 Sickle Cells Not Reportable 03/08/20 07:34 Target Cells Not Reportable 03/08/20 07:34 Tear Drop Cells Not Reportable 03/08/20 07:34 Ovalocytes Few 03/08/20 07:34 Helmet Cells Not Reportable 03/08/20 07:34 [place] Bodies Not Reportable 03/08/20 07:34 [place] Rings Not Reportable 03/08/20 07:34 [place] Cells Not Reportable 03/08/20 07:34 Bite Cells Not Reportable 03/08/20 07:34 Crenated Cell Not Reportable 03/08/20 07:34 Elliptocytes Few 03/08/20 07:34 Acanthocytes (Spur) Not Reportable 03/08/20 07:34 Rouleaux Not Reportable 03/08/20 07:34 Hemoglobin C Crystals Not Reportable 03/08/20 07:34 Schistocytes Rare 03/08/20 07:34 Malaria parasites Not Reportable 03/08/20 07:34 Isauro Bodies Not Reportable 03/08/20 07:34 Hem Pathologist Commnt No 03/08/20 07:34 PT 15.8 Sec. (12.2-14.9) H 03/03/20 04:28 INR 1.23 (0.87-1.13) H 03/03/20 04:28 APTT 34.9 Sec. (24.2-36.6) 03/02/20 01:52 Sodium 144 mmol/L (137-145) 03/09/20 14:26 Potassium 3.2 mmol/L (3.6-5.0) L 03/09/20 14:26 Chloride 108.3 mmol/L (98-107) H 03/09/20 14:26 Carbon Dioxide 20 mmol/L (22-30) L 03/09/20 14:26 Anion Gap 19 mmol/L 03/09/20 14:26 BUN 32 mg/dL (9-20) H 03/09/20 14:26 Creatinine 2.2 mg/dL (0.8-1.3) H 03/09/20 14:26 Estimated GFR 35 ml/min 03/09/20 14:26 BUN/Creatinine Ratio 15 % 03/09/20 14:26 Glucose 126 mg/dL (75-100) H 03/09/20 14:26 POC Glucose 105 mg/dL (70-105) 03/10/20 07:41 Lactic Acid 0.60 mmol/L (0.7-2.0) L 03/02/20 08:03 Calcium 8.9 mg/dL (8.4-10.2) 03/09/20 14:26 Phosphorus 2.20 mg/dL (2.5-4.5) L 03/07/20 05:31 Magnesium 1.90 mg/dL (1.7-2.3) 03/07/20 15:37 Ferritin 601.2 ng/mL (30.0-300.0) H 03/02/20 01:52 Total Bilirubin 0.40 mg/dL (0.1-1.2) 03/03/20 04:28 AST 24 units/L (5-40) 03/03/20 04:28 ALT 15 units/L (7-56) 03/03/20 04:28 Alkaline Phosphatase 132 units/L (35-129) H 03/03/20 04:28 Lactate Dehydrogenase 251 units/L (91-180) H 03/02/20 08:03 Total Creatine Kinase 34 units/L (55-170) L 03/02/20 01:52 C-Reactive Protein 2.00 mg/dL (0.00-1.30) H 03/02/20 01:52 C-Reactive Protein 2.20 mg/dL (0.00-1.30) H 03/02/20 01:52 Total Protein 6.0 g/dL (6.3-8.2) L 03/03/20 04:28 Albumin 2.6 g/dL (3.9-5) L 03/03/20 04:28 Albumin/Globulin Ratio 0.8 % 03/03/20 04:28 Procalcitonin 3.07 ng/mL (<0.15) 03/02/20 01:52 TSH 0.885 mlU/mL (0.270-4.200) 03/02/20 01:52 Urine Color Yellow (Yellow) 03/02/20 Unknown Urine Turbidity Cloudy (Clear) 03/02/20 Unknown Urine pH 5.0 (5.0-7.0) 03/02/20 Unknown Ur Specific [place] 1.010 (1.003-1.030) 03/02/20 Unknown Urine Protein 100 mg/dl mg/dL (Negative) 03/02/20 Unknown Urine Glucose (UA) Neg mg/dL (Negative) 03/02/20 Unknown Urine Ketones Neg mg/dL (Negative) 03/02/20 Unknown Urine Blood Sm (Negative) 03/02/20 Unknown Urine Nitrite Pos (Negative) 03/02/20 Unknown Urine Bilirubin Neg (Negative) 03/02/20 Unknown Urine Urobilinogen < 2.0 mg/dL (<2.0) 03/02/20 Unknown Ur Leukocyte Esterase Lg (Negative) 03/02/20 Unknown Urine WBC (Auto) > 182.0 /HPF (0.0-6.0) H 03/02/20 Unknown Urine RBC (Auto) 15.0 /HPF (0.0-6.0) 03/02/20 Unknown U Epithel Cells (Auto) 2.0 /HPF (0-13.0) 03/02/20 Unknown Urine Bacteria (Auto) 4+ /HPF (Negative) 03/02/20 Unknown Hyaline Casts 1 /LPF 03/02/20 Unknown Urine Mucus Few /HPF 03/02/20 Unknown Coronavirus (PCR) Negative (Negative) 03/02/20 10:44 Microbiology: Microbiology 03/07/20 07:21 Peripheral/Venous Blood Culture - Preliminary NO GROWTH AFTER 72 HOURS 03/07/20 05:31 Peripheral/Venous Blood Culture - Preliminary NO GROWTH AFTER 72 HOURS Cunningham/IV: Voiding Method Incontinent IV Catheter Type [Left Upper Mid-line arm] IV Catheter Type [Left INT / Saline Lock Antecubital] Active Medications - Current Medications Current Medications: Generic Name Dose Route Start Last Admin Trade Name Freq PRN Reason Stop Dose Admin Acetaminophen 650 mg 03/02/20 03:40 Tylenol PO Q4H PRN Pain MILD(1-3)/Fever >100.5/HUTCHINS Dextrose 50 ml 03/02/20 03:40 D50w (25gm) Syringe IV Q30MIN PRN Hypoglycemia Protocol Ertapenem 1 gm/ Sodium 50 mls @ 100 mls/hr 03/06/20 15:30 03/10/20 10:28 Chloride IV 11/02/20 10:29 100 mls/hr QDAY IDRIS Administration Insulin Human Lispro 0 unit 03/02/20 07:30 03/10/20 10:22 Humalog SUB-Q Not Given ACHS [facility] Protocol Magnesium Hydroxide 30 ml 03/02/20 03:40 Milk Of Magnesia PO Q4H PRN Constipation Morphine Sulfate 2 mg 03/02/20 03:40 03/10/20 05:50 Morphine IV 2 mg Q4H PRN Administration Pain, Moderate (4-6) Ondansetron HCl 4 mg 03/02/20 03:40 Zofran IV Q8H PRN Nausea And Vomiting Potassium Bicarbonate 25 meq 03/07/20 11:00 03/10/20 10:28 Klor-Con PO 25 meq QDAY IDRIS Administration Sodium Chloride 10 ml 03/02/20 10:00 03/09/20 22:59 Sodium Chloride Flush Syringe 10 Ml IV 10 ml BID IDRIS Administration Sodium Chloride 10 ml 03/02/20 03:40 Sodium Chloride Flush Syringe 10 Ml IV PRN PRN LINE FLUSH Nutrition/Malnutrition Assess - Dietary Evaluation Nutrition/Malnutrition Findings: Nutrition Notes Start: 03/02/20 10:33 Freq: Status: Active Protocol: Document 03/02/20 10:33 LM (Rec: 03/02/20 10:43 LM [id number]) Nutrition Notes Need for Assessment generated from: MD Order Initial or Follow up Assessment Current Diagnosis CKD(stage I-IV),Diabetes, Sepsis,Hypertension Other Pertinent Diagnosis Suspected COVID-19, UTI, multiple skin ulcers Current Diet Cardiac/consistent CHO Labs/Tests K 2.8 BUN 59 Cr 2.3 Pertinent Medications Reviewed Height 5 ft 8 in Weight 121.5 kg [place] Body Weight (kg) 70.00 BMI 40.7 Weight Status Morbidly Obese Subjective/Other Information MD consult for diet education. Unable to reach pt by phone. Pt has several skin ulcers, belem score is 14. Pt also has LE edema. Burn Absent Trauma Absent Minimum of two criteria No Fluid Accumulation Mild (non-severe) #1 Nutrition Diagnosis Increased nutrient needs ( specify in comment below) Comments: Protein Etiology Wound healing As Evidenced by Signs and Symptoms Pt with multiple skin ulcers Is patient on ventilator? No Is Patient Ambulatory and/or Out of Bed No REE-(Routt-St. Jeor-confined to bed) 2279.724 Kcal/Kg value to use for calculation 15 Approximate Energy Requirements Using 1823 kcal/Kg Calculation Used for Recommendations Kcal/kg Additional Notes Protein: 77-144g (0.8-1.5g/kg using AdjBW of 96kg) Fluid: 1ml/kcal Nutrition Intervention Change Diet Order: Continue Goal #1 Meet at least 75% of energy and protein needs Goal #2 Wound healing Anticipated Discharge Needs: cardiac/consistent CHO Follow-Up By: 03/13/20 Additional Comments F/U for intakes, diet education
--- NOTE | 2020-03-10 12:17 | Discharge Summary ---
Providers - Providers Date of Admission: 03/03/20 15:21 Date of discharge: 03/10/20 Attending physician: LUIS DIALLO 03/02/20 03:40 Consult to Physician [CONS] Routine Comment: Consulting Provider: SAFIA BRENNAN Physician Instructions: Reason For Exam: FEVER, HYPOXIA. R/O COVID 03/02/20 03:41 Consult to Dietitian/Nutrition [CONS] Routine Physician Instructions: Reason For Exam: Reason for Consult: Diet education 03/02/20 04:41 Consult to Physician [CONS] Routine Comment: Consulting Provider: CHHAYA CROWE Physician Instructions: Reason For Exam: ACUTE ON CHRONIC KIDNEY FAILURE 03/02/20 06:34 Consult to Wound/ET Nurse [CONS] Routine Reason For Exam: wound eval R heel, L calf, sacral ulcer, BLE. 03/02/20 14:52 Physical Therapy Evaluation and Treat [CONS] Routine Comment: Reason For Exam: Eval and treatment 03/06/20 10:58 Occupational Therapy Evaluate and Treat [CONS] Routine Comment: Reason For Exam: ADL 03/07/20 17:53 Midline [Consult to PICC Line RN] [CONS] Routine Reason For Exam: Long-term antibiotics Type Line:: Midline 03/08/20 13:18 Consult to Case Management [CONS] Routine Services Needed at Discharge: Home Health Services Notified:: cm notified Additional Physician Instructions: Susan Brennan MD [facility] ([facility]) M: [phone] O: [phone] F: [phone] Outpatient parenteral antibiotic therapy orders Diagnosis: ESBL E. 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 Patient was said to be hypoxic in the field and also had a fever. Work-up in the emergency room however reveals leukocytosis of 14, lactic acidosis, hypomagnesemia and hypokalemia, urinalysis was significant for UTI . Chest x-ray showed low lung volumes with presumed atelectatic changes in the bases. Patient was admitted started on empiric antibiotics, cultures are positive for ESBL bacteremia, ID has evaluated the patient and recommend ectopy none for total 2 weeks stop date 03/20/2020, patient also had acute on chronic kidney disease, nephrology evaluated the patient and medications optimized Blood pressures blood sugars closely monitored Meds adjusted, multiple electrolytes hypomagnesemia, hypokalemia , hypophosphatemia, corrected per protocol Case management has evaluated the patient and assisted in discharge planning Today patient is comfortable no new complaints vital signs stable physical exam unremarkable Patient is hemodynamically and clinically stable at discharge to SNF Discharge diagnosis; --Covid negative --Sepsis secondary to UTI; ESBL bacteremia Continue ertapenem, contact isolation ID recommend 2 weeks of ertapenem. Stop date 03/20/2020 repeat blood cultures a.m. to document clearance, midline when cultures negative for 48 hours. --Toxic metabolic encephalopathy: Multifactorial, continue current antibiotics , supportive care --Acute on CKD stage III ; due to prerenal azotemia, vasomotor nephropathy Will monitor renal function avoid nephrotoxin, nephrology following --Diabetes Mellitus type 2; Accu-Chek sliding scale coverage ADA diet Long-acting insulin as needed, check hemoglobin A1c Sacral and LE Pressure ulcers. Wound care per wound team. --Persistent hypokalemia; 3.2 today Replenish with oral KCl, monitor electrolytes --Hypomagnesemia; received mag sulfate IV Follow electrolytes --Hypophosphatemia; Neutra-Phos 3 times a day x 6 doses Closely monitor electrolytes --Acute hypoxemic respiratory failure: Cont oxygen titrate O2 sats to more than 90%, Bipap as needed Secondary to Sepsis due to UTI, treat underlying cause --hx CVA; with residual weakness supportive care --Morbid obesity: BMI 40.4, supportive care Patient needs weight reduction program when medically stable --Chronic lymphedema; supportive care --Superficial skin erosions/erythema[stage I] hyperpigmentation Local skin care, wound care following Patient is being transferred to SNF placement Stable at discharge, Continue antibiotics Continue to follow contact isolation due to ESBL Disposition: DC/[place]-03 SNF W [facility] Time spent for discharge: 33 min Core Measure Documentation - Palliative Care Palliative Care/ Comfort Measures: Not Applicable - Core Measures Any of the following diagnoses?: none Exam - Constitutional Vitals: Temp Pulse Resp BP Pulse Ox 97.8 F 92 H 20 138/62 93 03/10/20 06:44 03/10/20 06:44 03/10/20 06:44 03/10/20 06:44 03/10/20 06:44 General appearance: Present: no acute distress, well-nourished, obese (morbidly obese) - EENT Eyes: Present: PERRL, EOM intact - Neck Neck: Present: supple, normal ROM - Respiratory Respiratory effort: normal Respiratory: bilateral: diminished, negative: rales, rhonchi, wheezing - Cardiovascular Rhythm: regular Heart Sounds: Present: S1 & S2 - Extremities Extremities: no ischemia, No edema - Abdominal General gastrointestinal: Present: soft, non-tender, non-distended, normal bowel sounds - Integumentary Integumentary: Present: clear, warm - Musculoskeletal Musculoskeletal: strength equal bilaterally, generalized weakness - Psychiatric Psychiatric: appropriate mood/affect, cooperative - Neurologic Neurologic: moves all extremities Plan Activity: advance as tolerated, fall precautions Diet: other (cardiac diet) Additional Instructions: i/v Ertapenem 1 g every 24 hours ,stop date 03/20/2020. If you have worsening symptoms contact MD or go to emergency room Follow up with: PRIMARY ERIN, [Primary Care Provider] - 3-5 Days SAFIA BRENNAN MD [Staff Physician] - 14 Days CHHAYA CROWE MD [Staff Physician] - 7 Days
--- NOTE | 2020-03-10 13:07 | Progress Note ---
Assessment and Plan Cultures: Blood culture 03/02/2020 ESBL E. coli COVID-19 negative A/P: 79-year-old man past medical history CKD, CVA, DM 2, obesity, chronic lymphedema admitted with: #Acute hypoxemic respiratory failure: Resolved #ESBL E coli bacteremia: secondary to UTI #Pyuria: With associated altered mental status and fevers, likely UTI. #CKD: Renally dose antibiotics #Diabetes: tight glycemic control for best outcomes. #Pressure ulcers: Sacrum, bilateral lower extremities. Recs: -Given ESBL in blood, ertapenem 1 g every 24 hours -Case management consulted for ertapenem 1 g every 24 hours until 03/20/2020 -Midline placed OK to DC when midline and home antibiotics arranged. Thank you for the consult, we will sign off. Please call with questions.. Susan Deutsch MD O: [phone] F: [phone] Subjective Date of service: 03/10/20 Principal diagnosis: ALEJANDRO Interval history: Afebrile, slightly improved white count. No acute concerns. Objective - Exam Narrative Exam: Physical Exam: Constitutional: Alert, cooperative. No acute distress, obese Head, Ears, Nose: Normocephalic, atraumatic. Eyes: Conjunctivae/corneas clear. Neck: Supple, no meningeal signs Oral: dentition fair, no thrush Cardiovascular: S1, S2 normal. Respiratory: Good air entry, clear to auscultation bilaterally GI: Soft, non-tender; bowel sounds normal. No peritoneal signs. Musculoskeletal: No pedal edema, no cyanosis. Skin: No rash or abscess Hem/Lymphatic: No palpable cervical or supraclavicular nodes. No lymphangitis Psych: Mood ok. Affect normal Neurological: Awake, alert, oriented. No gross abnormality - Constitutional Vitals: Vital Signs Temp Pulse Resp BP Pulse Ox 97.5 F L 80 24 128/62 100 03/10/20 11:18 03/10/20 11:18 03/10/20 11:18 03/10/20 11:18 03/10/20 11:18 Temperature -Last 24 Hours Temperature 97.5 F Temperature 97.8 F Temperature 98.7 F Temperature 98.5 F - Labs CBC & Chem 7: 03/09/20 14:26 03/09/20 14:26 Labs: Abnormal lab results 03/09/20 03/09/20 Range/Units 14:26 14:26 WBC 18.7 H (4.5-11.0) K/mm3 RBC 2.75 L (3.65-5.03) M/mm3 Hgb 8.5 L (11.8-15.2) gm/dl Hct 26.4 L (35.5-45.6) % MCV 96 H (84-94) fl RDW 17.0 H (13.2-15.2) % [place] # (Auto) 1.1 H (0.0-0.8) K/mm3 Eos # (Auto) 0.5 H (0.0-0.4) K/mm3 Seg Neutrophils % 77.4 H (40.0-70.0) % Seg Neutrophils # 14.5 H (1.8-7.7) K/mm3 Potassium 3.2 L (3.6-5.0) mmol/L Chloride 108.3 H (98-107) mmol/L Carbon Dioxide 20 L (22-30) mmol/L BUN 32 H (9-20) mg/dL Creatinine 2.2 H (0.8-1.3) mg/dL Glucose 126 H (75-100) mg/dL
[2020-03-10 17:01] VITALS: BP 147/67
== END 2020-03-10 21:30 | DRG 871 ==
LOC: ED 01:08 → 3A 03:20 → OBSVTOIN 03-03 15:21
PROVIDERS: ADMIT Internal Medicine Geriatric Medicine; ATTEND Internal Medicine
DX: A41.51 Sepsis due to Escherichia coli [E. coli] (principal); J96.01 Acute respiratory failure with hypoxia; G92 Toxic encephalopathy; N17.0 Acute kidney failure with tubular necrosis; N39.0 Urinary tract infection, site not specified; Z68.41 Body mass index [BMI] 40.0-44.9, adult; E87.6 Hypokalemia; E83.42 Hypomagnesemia; N18.30 Chronic kidney disease, stage 3 unspecified; I12.9 Hypertensive chronic kidney disease with stage 1 through stage 4 chronic kidney disease, or unspecified chronic kidney disease; E11.22 Type 2 diabetes mellitus with diabetic chronic kidney disease; M19.90 Unspecified osteoarthritis, unspecified site; E66.9 Obesity, unspecified; Z20.828 Contact with and (suspected) exposure to other viral communicable diseases; L89.159 Pressure ulcer of sacral region, unspecified stage; E83.39 Other disorders of phosphorus metabolism; L81.9 Disorder of pigmentation, unspecified; I89.0 Lymphedema, not elsewhere classified; Z88.8 Allergy status to other drugs, medicaments and biological substances; Z86.73 Personal history of transient ischemic attack (TIA), and cerebral infarction without residual deficits; Z79.82 Long term (current) use of aspirin; Z71.3 Dietary counseling and surveillance
CPT/HCPCS: 36415; 71045; 76770; 80048; 80053; 81001; 82140; 82550; 82728; 82947; 82962; 83615; 83735; 84100; 84132; 84145; 84443; 85007; 85025; 85610; 85730; 86140; 87040; 87076; 87086; 87186; 90471; 93005; 94760; G0378; J0692; J0696; J1335; J2270; J3475; J3480; J7030; J7120; U0003

== ENCOUNTER 2020-03-16 12:40 | Inpatient (IN) | payer MEDICARE ==
[2020-03-16] MEDS ORDERED: SODIUM CHLORIDE 0.9% 1000 ML 1,000 ML ONE (13:38)
[2020-03-16] MEDS ORDERED: SODIUM CHLORIDE 0.9% 1000 ML IV SOLN IV ONE (14:22)
[2020-03-16] MEDS ORDERED: PIPERACIL/TAZOBACTA 4.5/NS 100 4.5 GM/100 ML VIAL IV ONE ×2 (14:25→14:33)
--- NOTE | 2020-03-16 14:36 | Emergency Department Report ---
ED General Adult HPI - General Source: EMS Mode of arrival: Stretcher Limitations: Physical Limitation, Other - History of Present Illness Initial comments: 79-year-old male with a past medical history of encephalopathy, hypertension, generalized weakness, diabetes type 2, chronic lipidemia, DVT, respiratory failure with hypoxia, CVA, and CKD presents from long-term with complaint of sepsis. Today patient developed hypotension, alteration mental status, and her labs collected yesterday that resulted today showing a WBC count of 36. As per long-term MAR patient has been on ertapenem 1 g IV daily ESBL E. coli bactere ruby with started on March 11 with plan in date March 21 via PICC line. Patient apparently is worsening despite his antibiotic treatment. Patient is nonverbal but able to follow commands. USP vital signs include BP of 66/36, heart rate 62, respiratory rate 16, blood glucose 230, and patient presents on 3 L of nasal cannula oxygen satting 98% Patient had a negative Covid test during admission here March 02 - Related Data Previous Rx's Medication Instructions Recorded Last Taken Type Acetaminophen [Acetaminophen TAB] 650 mg PO Q4H PRN #1 tablet 02/28/17 Unknown Rx Aspirin [Aspirin BABY CHEW TAB] 81 mg PO DAILY #1 tab.chew 02/28/17 Unknown Rx Ferrous Sulfate [Feosol 325 MG tab] 325 mg PO QDAY #1 tablet 02/28/17 Unknown Rx Gabapentin 300 mg PO Q8HR #1 capsule 02/28/17 Unknown Rx Ondansetron [Zofran INJ] 4 mg IV Q8H PRN #1 vial 02/28/17 Unknown Rx amLODIPine 10 mg PO DAILY #1 tablet 02/28/17 Unknown Rx Ertapenem [INVanz] 1 gm IV QDAY vial 03/10/20 Unknown Rx Allergies Allergy/AdvReac Type Severity Reaction Status Date / Time diclofenac [Diclofenac] Allergy Rash Verified 10/05/18 08:11 ED Review of Systems ROS: Stated complaint: Other details as noted in HPI ED Past Medical Hx - Past Medical History Hx Hypertension: Yes Hx CVA: Yes Hx Diabetes: Yes Hx Deep Vein Thrombosis: No Hx Renal Disease: Yes (chronic kidney disease) Hx Arthritis: Yes Additional medical history: spinal disorder - Surgical History Hx Pacemaker: No Hx Internal Defibrillator: No Additional Surgical History: spinal fusion c1-c4 - Social History Smoking Status: Unknown if ever smoked Substance Use Type: None - Medications Home Medications: Home Medications Medication Instructions Recorded Confirmed Last Taken Type Acetaminophen [Acetaminophen TAB] 650 mg PO Q4H PRN #1 tablet 02/28/17 03/02/20 Unknown Rx Aspirin [Aspirin BABY CHEW TAB] 81 mg PO DAILY #1 tab.chew 02/28/17 03/02/20 Unknown Rx Ferrous Sulfate [Feosol 325 MG tab] 325 mg PO QDAY #1 tablet 02/28/17 03/02/20 Unknown Rx Gabapentin 300 mg PO Q8HR #1 capsule 02/28/17 03/02/20 Unknown Rx Ondansetron [Zofran INJ] 4 mg IV Q8H PRN #1 vial 02/28/17 03/02/20 Unknown Rx amLODIPine 10 mg PO DAILY #1 tablet 02/28/17 03/02/20 Unknown Rx Ertapenem [INVanz] 1 gm IV QDAY vial 03/10/20 Unknown Rx ED Physical Exam - Other Other exam information: General: No acute distress Head: Atraumatic Eyes: normal appearance ENT: Moist mucous membranes Neck: Normal appearance, no midline tenderness Chest: Clear to auscultation bilaterally, no tachypnea CV: Regular rate and rhythm Abdomen: Soft, normal bowel sounds, nontender, nondistended, no rebound or guarding Back: Normal inspection Extremity: Generalized lymphedema, left arm midline Neuro: Alert follows commands, equal handgrip, generalized weakness Psych: Appropriate behavior Skin: Generalized skin flaking/with superficial skin sloughing without erythema or warmth. Sacral decubitus ED Course Vital Signs 03/16/20 03/16/20 03/16/20 13:10 13:30 15:42 Temperature 90.1 F L 90.1 F L 92.5 F L Pulse Rate 62 Respiratory 16 Rate Blood Pressure 76/33 Blood Pressure [Right] O2 Sat by Pulse 97 Oximetry 03/16/20 16:00 Temperature Pulse Rate 70 Respiratory 19 Rate Blood Pressure Blood Pressure 81/33 [Right] O2 Sat by Pulse 99 Oximetry - Consultations Consultation #1: 03/16/20 16:[address] Toledo on-call it specialist for Dr. Means Recommends bicarb drip 150 mEq at 125 mL per. Does not recommend IV potassium at this ED Medical Decision Making - Lab Data Result diagrams: 03/16/20 14:22 10/29/20 14:22 Lab Results 03/16/20 03/16/20 03/16/20 Range/Units 14:22 14:22 14:23 WBC 32.2 H (4.5-11.0) K/mm3 RBC 2.93 L (3.65-5.03) M/mm3 Hgb 8.9 L (11.8-15.2) gm/dl Hct 28.2 L (35.5-45.6) % MCV 96 H (84-94) fl MCH 30 (28-32) pg MCHC 32 (32-34) % RDW 18.1 H (13.2-15.2) % Plt Count 232 (140-440) K/mm3 PT (12.2-14.9) Sec. INR (0.87-1.13) APTT (24.2-36.6) Sec. Sodium 144 (137-145) mmol/L Potassium 3.3 L (3.6-5.0) mmol/L Chloride 108.9 H (98-107) mmol/L Carbon Dioxide 12 L (22-30) mmol/L Anion Gap 26 mmol/L BUN 59 H (9-20) mg/dL Creatinine 5.9 H (0.8-1.3) mg/dL Estimated GFR 11 ml/min BUN/Creatinine Ratio 10 % Glucose 142 H (75-100) mg/dL Lactic Acid (0.7-2.0) mmol/L Calcium 7.7 L (8.4-10.2) mg/dL Total Bilirubin 0.20 (0.1-1.2) mg/dL AST 22 (5-40) units/L ALT 8 (7-56) units/L Alkaline Phosphatase 224 H (35-129) units/L Troponin T 0.033 H (0.00-0.029) ng/mL Total Protein 5.4 L (6.3-8.2) g/dL Albumin 1.9 L (3.9-5) g/dL Albumin/Globulin Ratio 0.5 % Triglycerides 107 (2-149) mg/dL Cholesterol 95 (50-199) mg/dL LDL Cholesterol Direct 35 L (50-130) mg/dL HDL Cholesterol 37 L (40-59) mg/dL Cholesterol/HDL Ratio 2.56 % 03/16/20 03/16/20 Range/Units 14:27 Unknown WBC (4.5-11.0) K/mm3 RBC (3.65-5.03) M/mm3 Hgb (11.8-15.2) gm/dl Hct (35.5-45.6) % MCV (84-94) fl MCH (28-32) pg MCHC (32-34) % RDW (13.2-15.2) % Plt Count (140-440) K/mm3 PT 17.2 H (12.2-14.9) Sec. INR 1.37 H (0.87-1.13) APTT 51.3 H (24.2-36.6) Sec. Sodium (137-145) mmol/L Potassium (3.6-5.0) mmol/L Chloride (98-107) mmol/L Carbon Dioxide (22-30) mmol/L Anion Gap mmol/L BUN (9-20) mg/dL Creatinine (0.8-1.3) mg/dL Estimated GFR ml/min BUN/Creatinine Ratio % Glucose (75-100) mg/dL Lactic Acid 1.80 (0.7-2.0) mmol/L Calcium (8.4-10.2) mg/dL Total Bilirubin (0.1-1.2) mg/dL AST (5-40) units/L ALT (7-56) units/L Alkaline Phosphatase (35-129) units/L Troponin T (0.00-0.029) ng/mL Total Protein (6.3-8.2) g/dL Albumin (3.9-5) g/dL Albumin/Globulin Ratio % Triglycerides (2-149) mg/dL Cholesterol (50-199) mg/dL LDL Cholesterol Direct (50-130) mg/dL HDL Cholesterol (40-59) mg/dL Cholesterol/HDL Ratio % - EKG Data -: EKG Interpreted by [facility] EKG shows normal: sinus rhythm, ST-T waves (No STEMI) Rate: normal (68) - Radiology Data Radiology results: report reviewed CHEST 1 VIEW INDICATION: sepsis. COMPARISON: 03/02/2020 FINDINGS: Support devices: None. Heart: Within normal limits. Lungs/Pleura: There is poor inspiration. Chronic appearing pleuroparenchymal changes at the left lung base appear relatively stable since 03/02/2020 exam. The right lung is generally clear. No pneumothorax. Additional findings: None. IMPRESSION: Pleuroparenchymal disease at the left lung base which is probably chronic. - Medical Decision Making Recent sensitivities from blood cultures obtained 03/02 reviewed. ESBL that had intermediate sensitive to Zosyn and sensitive to the imipenem and Ertapenem therefore Ertapenem and vancomycin ordered in the ED. Patient receiving 30 mL/kg bolus of normal saline and Levophed ordered to keep map above 65. Patient received active warming. Consults ordered for critical care and infectious disease. Case discussed with it specialist and consult ordered and bicarb drip ordered as directed. Potassium drip not recommended at this time however, may be necessary based on repeat BMPs. Magnesium added to labs due to prolonged QT and is pending at disposition. Mild trop elevation noted without ischemic ekg finings which could be secondary to renal insufficiency. Repeat troponin levels pending Critical Care Time: Yes Critical care time in (mins) excluding proc time.: 35 Critical care attestation.: If time is entered above; I have spent that time in minutes in the direct care of this critically ill patient, excluding procedure time. ED Disposition Clinical Impression: Septic shock, History of ESBL E. coli infection, Hypothermia, Acute on chronic renal failure, Hypokalemia Disposition: -09 OP ADMIT IP TO THIS HOSP Is pt being admited?: Yes Condition: Stable Time of Disposition: 16:30 (Dr Weber/hospitalist)
[2020-03-16] MEDS: NORepinephrine/NS 4 MG-250 ML 4 MG/250 ML BAG IV SCH ×3 (14:55→22:08)
--- NOTE | 2020-03-16 15:15 | XRay Report ---
CHEST 1 VIEW INDICATION: sepsis. COMPARISON: 03/02/2020 FINDINGS: Support devices: None. Heart: Within normal limits. Lungs/Pleura: There is poor inspiration. Chronic appearing pleuroparenchymal changes at the left lung base appear relatively stable since 03/02/2020 exam. The right lung is generally clear. No pneumotho rax. Additional findings: None. IMPRESSION: Pleuroparenchymal disease at the left lung base which is probably chronic. Signer Name: Dimas Morton Jr, MD Signed: 03/16/2020 3:11 PM Workstation Name: [id number]
[2020-03-16 15:55] LABS: Albumin 1.9 g/dL (3.9-5); Calcium 7.7 mg/dL (8.4-10.2)
[2020-03-16 15:57] LABS: Hematocrit 28.2 % (35.5-45.6); Hemoglobin 8.9 gm/dl (11.8-15.2); Mean Corpuscular HGB Conc 32 % (32-34); Mean Corpuscular Volume 96 fl (84-94); Platelet Count 232 K/mm3 (140-440); Red Blood Count 2.93 M/mm3 (3.65-5.03); Red Cell Distribution Width 18.1 % (13.2-15.2)
[2020-03-16] MEDS ORDERED: ERTAPENEM 1 GM in SODIUM CHLORIDE 0.9% 50 ML IV ONE (16:00)
[2020-03-16 16:06] LABS: INR 1.37 (0.87-1.13)
[2020-03-16 16:07] LABS: Partial Thromboplastin Time 51.3 Sec. (24.2-36.6)
[2020-03-16 16:25] LABS: Chol/HDL Ratio 2.56 %
--- NOTE | 2020-03-16 16:30 | History and Physical Report ---
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 Patient is confused, lethargic and is unable to provide history. Patient history taken from EMS staff, ED staff, as well as intermediate facility staff. As per staff the patient had experienced increased weakness and confusion over the past 1 day with complaints of subjective fever. EMS was notified and upon arrival the patient was found to be in distress and subsequently transported to [facility] for further care and evaluation. Patient seen and evaluated in the emergency department. All lab and imaging studies reviewed. Patient found to have severe sepsis complicated by septic shock with concomitant multiple organ system failure. Patient also found to have acute kidney injury with acute tubular necrosis, toxic metabolic encepha lopathy, metabolic acidosis and hypothermia. The patient is critically ill with a poor prognosis. Patient initiated on sepsis protocol and admitted to ICU for further care and medical stabilization. Patient was found to have subjective fever generalized weakness and body aches and increased confusion at the intermediate facility. Lab work was done and the patient was found to have leukocyto sis as well as systolic blood pressure in the 60s. The patient was subsequently transported to [facility] for further care and evaluation. No further history is obtainable. At the time of my evaluation the patient is lethargic but has a positive gag reflex and is able to protect his airway. Advanced care planning conducted in the emergency department. The patient's son Bryan Downs Jr. was notified and informed of the patient's poor prognosis and advised to present himself to the hospital due to the patient's poor prognosis. Coronavirus PCR ordered in the emergency department. Prior admission on 03/03/2020 reviewed. All medication listed at time of admission has been reconciled. Past History Past Medical History: diabetes, hypertension, renal failure, other (See HPI) Past Surgical History: Other (Spinal fusion) Social history: single. denies: smoking, prescription drug abuse Family history: diabetes, hypertension Medications and Allergies Allergies Allergy/AdvReac Type Severity Reaction Status Date / Time diclofenac [Diclofenac] Allergy Rash Verified 10/05/18 08:11 Home Medications Medication Instructions Recorded Confirmed Last Taken Type Acetaminophen [Acetaminophen TAB] 650 mg PO Q4H PRN #1 tablet 02/28/17 03/02/20 Unknown Rx Aspirin [Aspirin BABY CHEW TAB] 81 mg PO DAILY #1 tab.chew 02/28/17 03/02/20 Unknown Rx Ferrous Sulfate [Feosol 325 MG tab] 325 mg PO QDAY #1 tablet 02/28/17 03/02/20 Unknown Rx Gabapentin 300 mg PO Q8HR #1 capsule 02/28/17 03/02/20 Unknown Rx Ondansetron [Zofran INJ] 4 mg IV Q8H PRN #1 vial 02/28/17 03/02/20 Unknown Rx amLODIPine 10 mg PO DAILY #1 tablet 02/28/17 03/02/20 Unknown Rx Ertapenem [INVanz] 1 gm IV QDAY vial 03/10/20 Unknown Rx Active Meds: Active Medications Norepinephrine (Levophed Drip 4 Mg/Ns 250 Ml) 4 mg in 250 mls @ 7.5 mls/hr IV TITR IDRIS; Protocol Last Titration: 03/16/20 16:15 Dose: 10 mcg/min, 37.5 mls/hr Documented by: Vancomycin HCl 2,000 mg/ (Sodium Chloride) 540 mls @ 333 mls/hr IV ONCE ONE; Protocol Stop: 03/16/20 18:37 Sodium Bicarbonate 150 meq/ (Dextrose) 1,150 mls @ 125 mls/hr IV DIRECT ONE Stop: 03/17/20 02:11 Review of Systems ROS unobtainable: due to mental status Exam - Constitutional Vitals: Temp Pulse Resp BP Pulse Ox 92.5 F L 70 19 81/33 99 03/16/20 15:42 03/16/20 16:00 03/16/20 16:00 03/16/20 16:00 03/16/20 16:00 General appearance: Present: severe distress - EENT Eyes: Present: PERRL ENT: hearing decreased - Neck Neck: Present: supple - Respiratory Respiratory effort: normal Respiratory: bilateral: CTA - Cardiovascular Rhythm: other (Tachycardia, hypotension) Heart Sounds: Present: S1 & S2. Absent: rub, click - Extremities Extremities: pulses symmetrical, No edema Extremity abnormal: pulses diminished Peripheral Pulses: abnormal (Capillary refill greater than 3.5 seconds) - Abdominal General gastrointestinal: Present: soft, non-tender, non-distended, normal bowel sounds Male genitourinary: Present: normal - Integumentary Integumentary: Present: clear, dry, clammy, decreased turgor - Musculoskeletal Musculoskeletal: generalized weakness - Psychiatric Psychiatric: no appropriate mood/affect, no intact judgment & insight, no memory intact - Neurologic Neurologic: CNII-XII intact, no focal deficits, no gait normal HEART Score - HEART Score Troponin: Troponin T 0.033 ng/mL (0.00-0.029) H 03/16/20 14:23 Results - Labs CBC & Chem 7: 03/16/20 14:22 03/16/20 14:22 Labs: Abnormal lab results 03/16/20 03/16/20 03/16/20 Range/Units 14:22 14:22 14:23 WBC 32.2 H (4.5-11.0) K/mm3 RBC 2.93 L (3.65-5.03) M/mm3 Hgb 8.9 L (11.8-15.2) gm/dl Hct 28.2 L (35.5-45.6) % MCV 96 H (84-94) fl RDW 18.1 H (13.2-15.2) % PT (12.2-14.9) Sec. INR (0.87-1.13) APTT (24.2-36.6) Sec. Potassium 3.3 L (3.6-5.0) mmol/L Chloride 108.9 H (98-107) mmol/L Carbon Dioxide 12 L (22-30) mmol/L BUN 59 H (9-20) mg/dL Creatinine 5.9 H (0.8-1.3) mg/dL Glucose 142 H (75-100) mg/dL Calcium 7.7 L (8.4-10.2) mg/dL Alkaline Phosphatase 224 H (35-129) units/L Troponin T 0.033 H (0.00-0.029) ng/mL Total Protein 5.4 L (6.3-8.2) g/dL Albumin 1.9 L (3.9-5) g/dL LDL Cholesterol Direct 35 L (50-130) mg/dL HDL Cholesterol 37 L (40-59) mg/dL 03/16/20 Range/Units 14:27 WBC (4.5-11.0) K/mm3 RBC (3.65-5.03) M/mm3 Hgb (11.8-15.2) gm/dl Hct (35.5-45.6) % MCV (84-94) fl RDW (13.2-15.2) % PT 17.2 H (12.2-14.9) Sec. INR 1.37 H (0.87-1.13) APTT 51.3 H (24.2-36.6) Sec. Potassium (3.6-5.0) mmol/L Chloride (98-107) mmol/L Carbon Dioxide (22-30) mmol/L BUN (9-20) mg/dL Creatinine (0.8-1.3) mg/dL Glucose (75-100) mg/dL Calcium (8.4-10.2) mg/dL Alkaline Phosphatase (35-129) units/L Troponin T (0.00-0.029) ng/mL Total Protein (6.3-8.2) g/dL Albumin (3.9-5) g/dL LDL Cholesterol Direct (50-130) mg/dL HDL Cholesterol (40-59) mg/dL Assessment and Plan - Patient Problems (1) Septic shock Current Visit: Yes Status: Acute Plan to address problem: Sepsis protocol: CBC, CMP, IV fluid resuscitation therapy, IV antibiotic therapy, serial lactic acid level, IV pressor support to maintain mean arterial blood pressure greater than or equal to 65, blood cultures. The high probability of a clinically significant, sudden or life threatening deterioration of the [neuro, cardiac, respiratory, renal] system(s) required my full and direct attention, intervention and personal management. The aggregate critical care time was [90] minutes. This time is in addition to time spent performing reported procedures but includes the following: [x] Data Review and interpretation [x] Patient assessment and monitoring of vital signs [x] Documentation [x] Medication orders and management (2) Toxic metabolic encephalopathy Current Visit: Yes Status: Acute Plan to address problem: Supportive care, treat sepsis, seizure precautions. CT scan brain without contrast if/when patient becomes medically stable. (3) Acute kidney injury (ALEJANDRO) with acute tubular necrosis (ATN) Current Visit: Yes Status: Acute Plan to address problem: IV fluid resuscitation therapy, monitor urine output every shift, continue medical management, urinalysis. (4) Suspected 2019 novel coronavirus infection Current Visit: Yes Status: Acute Plan to address problem: Coronavirus protocol: IV antibiotic therapy, supportive care, IV steroid therapy, coronavirus PCR ordered in the emergency department. (5) Hypothermia Current Visit: Yes Status: Acute Qualifiers: Encounter type: initial encounter Qualified Code(s): T68.XXXA - Hypothermia, initial encounter Plan to address problem: Supportive care, warming blanket. (6) DVT prophylaxis Current Visit: Yes Status: Acute (7) Advance care planning Current Visit: Yes Status: Acute Plan to address problem: Patient is full code, patient has extremely poor prognosis. Patient prognosis discussed with patient family. Patient prognosis discussed with Bryan Huang Jr. Approxi-30 minutes dedicated to discussing patient prognosis. Patient si gning knowledges understanding and agreement with care plan. Patient prognosis again discussed with additional family member, Abdirashid Huang. Patient son acknowledges understanding and agreement with care plan. +30 minutes. Patient family members acknowledges understanding and agreement with care plan as well as patient poor prognosis.
[2020-03-16 16:36] LABS: Basophils % (Manual) 0 % (0.0-1.8); Eosinophils % (Manual) 0 % (0.0-4.3); Promyelocytes # (Manual) 0.6 K/mm3; Total Cells Counted 100
[2020-03-16 16:37] LABS: RBC Morphology Normal
[2020-03-16] MEDS ORDERED: SODIUM CHLORIDE 0.9% 1000 ML 1,000 ML IV SCH (17:00)
[2020-03-16] MEDS ORDERED: VANCOMYCIN 2,000 MG in SODIUM CHLORIDE 0.9% 500 ML 500 ML IV ONE (17:00)
[2020-03-16] MEDS ORDERED: SODIUM BICARBONATE 150 MEQ in DEXTROSE 5% IN WATER 1,000 ML IV ONE (17:00)
[2020-03-16] MEDS ORDERED: ALBUTEROL 2.5 MG/3 ML NEBU IH PRN (17:00)
[2020-03-16] MEDS ORDERED: ACETAMINOPHEN 325 MG TAB PO PRN (17:30)
[2020-03-16] MEDS ORDERED: metroNIDAZOLE 500 MG TAB PO ONE (17:35)
[2020-03-16] MEDS ORDERED: VANCOMYCIN 250 MG/10 ML ORAL LIQD PO ONE (17:35)
[2020-03-16] MEDS ORDERED: HYDROmorphone 1 MG/1 ML INJ ONE (19:05)
--- NOTE | 2020-03-16 19:36 | Consultation ---
History of Present Illness Consult date: 03/16/20 Requesting physician: ARNIE RODGERS Reason for consult: other (Severe sepsis with septic shock) History of present illness: HISTORY PER ER DOCUMENTATION 79-year-old male with a past medical history of encephalopathy, hypertension, generalized weakness, diabetes type 2, chronic lipidemia, DVT, respiratory failure with hypoxia, CVA, and CKD presents from [facility] with complaint of sepsis. Today patient developed hypotension, alteration mental status, and her labs collected yesterday that resulted today showing a WBC count of 36. As per [facility] MAR patient has been on ertapenem 1 g IV daily ESBL E. coli b acteremia with started on March 11 with plan in date March 21 via PICC line. Patient apparently is worsening despite his antibiotic treatment. Patient is nonverbal but able to follow commands. residential vital signs include BP of 66/36, heart rate 62, respiratory rate 16, blood glucose 230, and patient presents on 3 L of nasal cannula oxygen satting 98% Patient had a negative Covid test during admission here March 02 I am unable to get a history from him, but his RN was at the bedside. The patient is hypotensive on Noreponephrine with SBP 88 and MAP of 55. I have placed an order for Vasopressin and ABG. Past History Past Medical History: diabetes, hypertension, renal failure, other (See HPI) Past Surgical History: Other (Spinal fusion) Social history: single. denies: smoking, prescription drug abuse Family history: diabetes, hypertension Medications and Allergies Allergies Allergy/AdvReac Type Severity Reaction Status Date / Time diclofenac [Diclofenac] Allergy Rash Verified 10/05/18 08:11 Home Medications Medication Instructions Recorded Confirmed Last Taken Type Acetaminophen [Acetaminophen TAB] 650 mg PO Q4H PRN #1 tablet 02/28/17 03/02/20 Unknown Rx Aspirin [Aspirin BABY CHEW TAB] 81 mg PO DAILY #1 tab.chew 02/28/17 03/02/20 Unknown Rx Ferrous Sulfate [Feosol 325 MG tab] 325 mg PO QDAY #1 tablet 02/28/17 03/02/20 Unknown Rx Gabapentin 300 mg PO Q8HR #1 capsule 02/28/17 03/02/20 Unknown Rx Ondansetron [Zofran INJ] 4 mg IV Q8H PRN #1 vial 02/28/17 03/02/20 Unknown Rx amLODIPine 10 mg PO DAILY #1 tablet 02/28/17 03/02/20 Unknown Rx Ertapenem [INVanz] 1 gm IV QDAY vial 03/10/20 Unknown Rx Active Meds: Active Medications Acetaminophen (Tylenol) 650 mg PO Q6H PRN PRN Reason: Pain, Mild (1-3) Albuterol (Proventil) 2.5 mg IH Q3HRT PRN PRN Reason: Shortness Of Breath Heparin Sodium (Porcine) (Heparin) 5,000 unit SUB-Q Q12HR IDRIS Hydromorphone HCl (Dilaudid) 0.25 mg IV Q4H PRN PRN Reason: Pain, Moderate (4-6) Norepinephrine (Levophed Drip 4 Mg/Ns 250 Ml) 4 mg in 250 mls @ 7.5 mls/hr IV TITR IDRIS; Protocol Last Titration: 03/16/20 19:15 Dose: 26 mcg/min, 97.5 mls/hr Documented by: Sodium Bicarbonate 150 meq/ (Dextrose) 1,150 mls @ 125 mls/hr IV DIRECT ONE Stop: 03/17/20 02:11 Last Admin: 03/16/20 16:53 Dose: 125 mls/hr Documented by: Levofloxacin/Dextrose (Levaquin 750mg/150ml) 750 mg in 150 mls @ 100 mls/hr IV Q24HR IDRIS; Protocol Stop: 03/17/20 23:00 Sodium Chloride (Nacl 0.9% 1000 Ml) 1,000 mls @ 125 mls/hr IV DIRECT IDRIS Levofloxacin/Dextrose (Levaquin 500mg/100ml) 500 mg in 100 mls @ 100 mls/hr IV Q48H IDRIS Methylprednisolone Sodium Succinate (Solu-Medrol) 40 mg IV Q8HR IDRIS Sodium Chloride (Sodium Chloride Flush Syringe 10 Ml) 10 ml IV BID IDRIS Sodium Chloride (Sodium Chloride Flush Syringe 10 Ml) 10 ml IV PRN PRN PRN Reason: LINE FLUSH Review of Systems ROS unobtainable: due to mental status Physical Examination Vital signs: Vital Signs Temp Pulse Resp BP Pulse Ox 90.1 F L 62 16 76/33 97 03/16/20 13:10 03/16/20 13:10 03/16/20 13:10 03/16/20 13:10 03/16/20 13:10 General appearance: appears uncomfortable, other (Generalized skin flaking/with superficial skin sloughing without erythema or warmth on chest wall ) Eyes: non-icteric ENT: oropharynx dry Neck: supple, no JVD Effort: mildly labored Ascultation: Bilateral: clear, diminished breath sounds Cardiovascular: other (S1,S2, Tachycardia, hypotension on Norepinephrine) Gastrointestinal: normoactive bowel sounds, non-tender, non-distended Integumentary: rash, decubitus ulcer (see RN notes for details) Extremities: pulses normal, cool unable to assess Results - Laboratory Findings CBC and BMP: 03/16/20 14:22 03/16/20 14:22 PT/INR, D-dimer PT 17.2 Sec. (12.2-14.9) H 03/16/20 14:27 INR 1.37 (0.87-1.13) H 03/16/20 14:27 Abnormal lab findings: Abnormal Labs 03/16/20 03/16/20 03/16/20 14:22 14:22 14:23 WBC 32.2 H RBC 2.93 L Hgb 8.9 L Hct 28.2 L MCV 96 H RDW 18.1 H Seg Neuts % (Manual) 82.0 H Lymphocytes % (Manual) 10.0 L Nucleated RBC % 3.0 H Seg Neutrophils # Man 26.4 H Monocytes # (Manual) 1.9 H PT INR APTT Potassium 3.3 L Chloride 108.9 H Carbon Dioxide 12 L BUN 59 H Creatinine 5.9 H Glucose 142 H Calcium 7.7 L Alkaline Phosphatase 224 H Troponin T 0.033 H Total Protein 5.4 L Albumin 1.9 L LDL Cholesterol Direct 35 L HDL Cholesterol 37 L 03/16/20 14:27 WBC RBC Hgb Hct MCV RDW Seg Neuts % (Manual) Lymphocytes % (Manual) Nucleated RBC % Seg Neutrophils # Man Monocytes # (Manual) PT 17.2 H INR 1.37 H APTT 51.3 H Potassium Chloride Carbon Dioxide BUN Creatinine Glucose Calcium Alkaline Phosphatase Troponin T Total Protein Albumin LDL Cholesterol Direct HDL Cholesterol - Diagnostic Findings Chest x-ray: image reviewed Assessment and Plan Septic shock Toxic metabolic encephalopathy Acute kidney injury (ALEJANDRO) with acute tubular necrosis (ATN) Sacral decubitus ulcer h/o VTE Hypothermia Continue Sepsis protocol as instituted by ED physician and hospitalist service -CBC, CMP, IV fluid resuscitation therapy, IV antibiotic therapy, serial lactic acid level, -IV pressor support to maintain mean arterial blood pressure greater than or equal to 65, blood cultures. Add Vasopressin to therapy Place Cunningham catheter for accurate Is and Os ABG ordered Avoid nephrotoxins, adjust all medications and antibiotics for GFR and CrCL VTE prophylaxis Mobility, off loading, frequent turning to prevent further pressure ulcers Wound care evaluation Aspiration precautions HOB >40 - still encephalopathic Passive warming Antibiotics- continue Ertapenem, ID consult Contact isolation per facility protocol for MDRO Blood cultures, urine cultures Agree with renal consult Volume resuscitation while monitoring respiratory status closely, probably has some degree of diastolic dysfunction VTE prophylaxis Accuchecks q4, avoid hypoglycemia. Place small bowel feeding tube in am to help optimize nutritional support CONDITION: CRITICAL PROGNOSIS: GUARDED MEDICAL DECISON MAKING- HIGH COMPLEXITY CODE STATUS: FULL CODE The high probability of a clinically significant, sudden or life threatening deterioration of the [Respiratory, cardiovascular & neurological] system(s) required my full and direct attention, intervention and personal management. The aggregate critical care time was [65 ] minutes without overlap. Time includes spent on [x] Data Review and interpretation [x] Patient assessment and monitoring of vital signs [x] Documentation [x] Medication orders and management
--- NOTE | 2020-03-16 19:50 | XRay Report ---
ABDOMEN 1 VIEW 03/16/2020 7:08 PM INDICATION / CLINICAL INFORMATION: NG tube placement. COMPARISON: 2:37 PM FINDINGS: TUBES / LINES: Esophagogastric tube is coiled within the patient's mouth and throat. BOWEL GAS PATTERN: No significant abnormality. FREE AIR / EXTRALUMINAL GAS: None. ADDITIONAL FINDINGS: No significant additional findings. IMPRESSION: 1. Esophagogastric tube coiled in the mouth and throat. Tube should be removed and repositioned. Signer Name: Leonor Pierre MD Signed: 03/16/2020 7:46 PM Workstation Name: [id number]
[2020-03-16] MEDS: VASOPRESSIN 20 UNIT in SODIUM CHLORIDE 0.9% 100 ML IV SCH (20:03)
[2020-03-16] MEDS ORDERED: DEXTROSE 5% IN WATER 1,000 ML IV ONE (20:40)
[2020-03-16] MEDS ORDERED: DEXTROSE 5% IN WATER 1,000 ML IV SCH (20:41)
[2020-03-16 21:32] LABS: Bilirubin,Urine NEG (Negative); Blood,Urine SM (Negative); Color,Urine Amber (Yellow); Mucus,Urine FEW /HPF; Urobilinogen,Urine < 2.0 mg/dL (<2.0)
[2020-03-16 21:34] LABS: WBC,Urine > 182.0 /HPF (0.0-6.0)
[2020-03-16] MEDS ORDERED: NORepinephrine/NS 4 MG-250 ML 4 MG/250 ML BAG IV ONE (21:59)
[2020-03-16] MEDS ORDERED: HEPARIN 5,000 UNIT/1 ML VIAL ONE (22:23)
[2020-03-16] MEDS ORDERED: methylPREDNISolone Sod Succinate 40 MG/1 ML INJ ONE (22:23)
[2020-03-16] MEDS: methylPREDNISolone Sod Succinate 40 MG/1 ML INJ IV SCH (23:00)
[2020-03-16] MEDS: HEPARIN 5,000 UNIT/1 ML VIAL SUB-Q SCH (23:44)
[2020-03-16] MEDS: NORepinephrine 8 MG in SODIUM CHLORIDE 0.9% 250ML 242 ML IV SCH (23:48)
[2020-03-17 00:11] LABS: ABG HCO3 14.6 mmol/L (20.0-26.0); ABG Methemoglobin 0.6 % (0.0-1.5); ABG PCO2 35.7 mm Hg; ABG PH 7.229 pH Units (7.350-7.450); ABG PO2 98.3 mm Hg (80.0-90.0)
[2020-03-17] MEDS ORDERED: SODIUM CHLORIDE 0.9% 1000 ML 2,000 ML ONE ×2 (01:06→10:50)
[2020-03-17] MEDS ORDERED: SODIUM CHLORIDE 0.9% 1000 ML 1,000 ML IV ONE ×2 (02:43→02:44)
[2020-03-17] MEDS: EPINEPHrine 1 MG/1 ML 8 MG in SODIUM CHLORIDE 0.9% 250ML 242 ML IV SCH ×2 (03:58→17:13)
[2020-03-17] MEDS: NORepinephrine 8 MG in SODIUM CHLORIDE 0.9% 250ML 242 ML IV SCH ×5 (04:19→20:41)
[2020-03-17] MEDS: VASOPRESSIN 20 UNIT in SODIUM CHLORIDE 0.9% 100 ML IV SCH ×3 (04:20→23:34)
[2020-03-17] MEDS ORDERED: methylPREDNISolone Sod Succinate 40 MG/1 ML INJ ONE ×3 (07:12→23:36)
--- NOTE | 2020-03-17 08:33 | Event Note ---
Date: 03/16/20 Was notified by the MANUFACTURING INDUSTRIAL ENGINEER that sodium bicarbonate is not compatible with Norepinephrine and vasopressin. So he has stopped the bicarb infusion so we can run the vasopressors. The PICC line is a single lumen PICC. Order has been placed fro a double lumen PICC. If his blood pressure does not improve on Norepinephrine and vasopressin during the night, he will need CVC access.
[2020-03-17] MEDS ORDERED: ALBUMIN HUMAN 5% (25 GM/500 ML) INJ IV ONE (09:00)
[2020-03-17] MEDS ORDERED: SODIUM CHLORIDE 0.9% 1000 ML 2,000 ML IV ONE (09:30)
--- NOTE | 2020-03-17 10:04 | Consultation ---
History of Present Illness - Reason for Consult Consult date: 03/17/20 acute renal failure, chronic renal failure - History of Present Illness patient with altered mental status, history obtained from chart. 79 YO Snf Facility Resident at [facility] with HTN, DM, CKD, CVA was admitted for AMS and sepsis. Patient found to have severe sepsis complicated by septic shock with concomitant multiple organ system failure. Patient also found to have acute kidney injury with acute tubular necrosis, toxic metabolic encephalopathy, metabolic acidosis and hypothermia. renal consult was requested for ALEJANDRO management Past History Past Medical History: diabetes, hypertension, renal failure, other (See HPI) Past Surgical History: Other (Spinal fusion) Social history: single. denies: smoking, prescription drug abuse Family history: diabetes, hypertension Medications and Allergies Allergies Allergy/AdvReac Type Severity Reaction Status Date / Time diclofenac [Diclofenac] Allergy Rash Verified 10/05/18 08:11 Home Medications Medication Instructions Recorded Confirmed Last Taken Type Acetaminophen [Acetaminophen TAB] 650 mg PO Q4H PRN #1 tablet 02/28/17 03/02/20 Unknown Rx Aspirin [Aspirin BABY CHEW TAB] 81 mg PO DAILY #1 tab.chew 02/28/17 03/02/20 U nknown Rx Ferrous Sulfate [Feosol 325 MG tab] 325 mg PO QDAY #1 tablet 02/28/17 03/02/20 Unknown Rx Gabapentin 300 mg PO Q8HR #1 capsule 02/28/17 03/02/20 Unknown Rx Ondansetron [Zofran INJ] 4 mg IV Q8H PRN #1 vial 02/28/17 03/02/20 Unknown Rx amLODIPine 10 mg PO DAILY #1 tablet 02/28/17 03/02/20 Unknown Rx Ertapenem [INVanz] 1 gm IV QDAY vial 03/10/20 Unknown Rx Active Meds: Active Medications Acetaminophen (Tylenol) 650 mg PO Q6H PRN PRN Reason: Pain, Mild (1-3) Albuterol (Proventil) 2.5 mg IH Q3HRT PRN PRN Reason: Shortness Of Breath Heparin Sodium (Porcine) (Heparin) 5,000 unit SUB-Q Q12HR IDRIS Last Admin: 03/16/20 23:44 Dose: 5,000 unit Documented by: Hydromorphone HCl (Dilaudid) 0.25 mg IV Q4H PRN PRN Reason: Pain, Moderate (4-6) Levofloxacin/Dextrose (Levaquin 750mg/150ml) 750 mg in 150 mls @ 100 mls/hr IV Q24HR IDRIS; Protocol Stop: 03/17/20 23:00 Sodium Chloride (Nacl 0.9% 1000 Ml) 1,000 mls @ 125 mls/hr IV DIRECT IDRIS Levofloxacin/Dextrose (Levaquin 500mg/100ml) 500 mg in 100 mls @ 100 mls/hr IV Q48H IDRIS Vasopressin 20 unit/ Sodium (Chloride) 101 mls @ 9.09 mls/hr IV TITR IDRIS; Protocol Last Admin: 03/17/20 04:20 Dose: 0.03 units/min, 9.09 mls/hr Documented by: Norepinephrine 8 mg/ Sodium (Chloride) 250 mls @ 3.75 mls/hr IV TITR IDRIS; Protocol Last Admin: 03/17/20 08:26 Dose: 30 mcg/min, 56.25 mls/hr Documented by: Dextrose (D5w) 1,000 mls @ 125 mls/hr IV DIRECT IDRIS Epinephrine 8 mg/ Sodium (Chloride) 250 mls @ 3.75 mls/hr IV TITR IDRIS; Protocol Last Titration: 03/17/20 05:36 Dose: 10 mcg/min, 18.75 mls/hr Documented by: Sodium Chloride (Nacl 0.9% 1000 Ml) 2,000 mls @ 999 mls/hr IV BOLUS ONE Stop: 03/17/20 11:30 Methylprednisolone Sodium Succinate (Solu-Medrol) 40 mg IV Q8HR IDRIS Last Admin: 03/16/20 23:00 Dose: 40 mg Documented by: Sodium Chloride (Sodium Chloride Flush Syringe 10 Ml) 10 ml IV BID [facility] Last Admin: 03/16/20 22:00 Dose: 10 ml Documented by: Sodium Chloride (Sodium Chloride Flush Syringe 10 Ml) 10 ml IV PRN PRN PRN Reason: LINE FLUSH Review of Systems ROS unobtainable: due to mental status Exam - Vital Signs Vital signs: Vital Signs Temp Pulse Resp BP Pulse Ox 90.1 F L 62 16 76/33 97 03/16/20 13:10 03/16/20 13:10 03/16/20 13:10 03/16/20 13:10 03/16/20 13:10 - General Appearance General appearance: cachectic EENT: ATNC, PERRL, mucous membranes dry Neck: Present: neck supple Respiratory: Decreased Breath Sounds Heart: tachycardia Gastrointestinal: Absent: tenderness, distended Integumentary: no rash, warm and dry Neurologic: other (follows simple commands) Musculoskeletal: Present: deferred Psychiatric: other (answer simple questions) Results - Lab Results 03/16/20 14:22 03/16/20 14:22 Most recent lab results ABG pH 7.229 pH Units (7.350-7.450) L 03/17/20 Unknown ABG pCO2 35.7 mm Hg 03/17/20 Unknown ABG pO2 98.3 mm Hg (80.0-90.0) H 03/17/20 Unknown ABG HCO3 14.6 mmol/L (20.0-26.0) L 03/17/20 Unknown ABG O2 Saturation 97.0 % (95.0-99.0) 03/17/20 Unknown Calcium 7.7 mg/dL (8.4-10.2) L 03/16/20 14:22 Magnesium 1.80 mg/dL (1.7-2.3) 03/16/20 14:23 Assessment and Plan Acute renal failure likely due to ischemic ATN Metbolic encphalopathy Metabolic acidosis Sepsis started on bicarb drip which was placed on hold this AM because he needed a PICC line pending repeated BMP this AM, no indication for PHOTOGRAPHY MANAGER but might be needed within the next 24 hours renal US ordered weldon ordered urine lytes, protein ordered renally dose meds strict I&O daily weight Carson thayer MD [phone]
--- NOTE | 2020-03-17 10:41 | Progress Note ---
Assessment and Plan Assessment and plan: Patient is a 79-year-old male with a past medical history of encephalopathy, hypertension, generalized weakness, diabetes type 2, chronic lipidemia, DVT, respiratory failure with hypoxia, CVA, and CKD presents from intermediate with complaint of sepsis with hypotension, alteration mental status, and her labs collected yesterday that resulted today showing a WBC count of 36. Of note patient was recently discharged from the hospital with ertapenem 1 g IV daily ESBL E. coli bacteremia with started on March 11 with plan in date March 21 via PICC line Patient unfortunately continues to worsen despite antibiotic treatment is nonverbal not able to follow any commands and now experiencing multiorgan failure. jail vital signs BP of 66/36, heart rate 62, respiratory rate 16, blood glucose 230, and patient presents on 3 L of nasal cannula oxygen satting 98% Patient had a negative Covid test during admission here March 02. 03/17 Patient also found to have acute kidney injury with acute tubular necrosis, toxic metabolic encephalopathy, metabolic acidosis and hypothermia. The patient is critically ill with a poor prognosis, sepsis protocol was initiated with an ICU admission. 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 Unfortunately bicarb drip had to be held due to PICC line compatibility. A new PICC line has been inserted this morning. Admitting physician did speak with the son and discussed prognosis. I did also call the son this morning who informs me that the brother who is physician is coming into town and will give us further recommendation on arrival. Patient has been started on a third pressor which is epinephrine at this time. To my examination awaiting nephrology evaluation. We will proceed with giving clint tional 2 L of fluids and also obtain a stat echocardiogram to see what patient's cardiac level is. Based on ejection fraction patient may benefit from dobutamine. Will place BiPAP on standby and if need be and family does not opposed to continued full code we will proceed with likely intubation so the patient can be adequately volume resuscitated. -Continue empiric antibiotic coverage. ID consultation. Critical care assistance and input noted. Fluid Resuscitation As Noted above Continue Diet. Change IV access for triple-lumen PICC line. Will follow cultures. We will also obtain wound care consultation. Septic shock, Severe sepsis, Bacteremia Acute renal failure likely due to ischemic ATN Acute toxic metabolic encephalopathy Rule out COVID-19 Hypothermia Metabolic acidosis Sepsis The high probability of a clinically significant, sudden or life threatening deterioration of the [multiple organ] system(s) required my full and direct attention, intervention and personal management. The aggregate critical care time was [55 minutes] minutes. This time is in addition to time spent performing reported procedures but includes the following: [X] Data Review and interpretation [X] Patient assessment and monitoring of vital signs [X] Documentation [X] Medication orders and management History Interval history: Patient seen and examined remains critically ill although respiratory status appears to be present at this time patient is on 3 pressors from understanding the blood pressure was just started this a.m. Patient has received a total of 3 L of fluid from my calculation. I did discuss with the son will be coming to the hospital with his brother for further discussion. Hospitalist Physical - Physical exam Narrative exam: VITAL SIGNS: Reviewed. GENERAL: The patient critically ill, vital signs as documented. Morbidly obese patient is in none responsive although opens his eyes intermittently. Does not follow any commands HEAD: No signs of head trauma. EYES: Pupils are equal. EARS: Unable to examine this patient following any commands MOUTH: Oropharynx is normal otherwise dry. NECK: No adenopathy, no JVD. CHEST: Chest with dminished breath sounds bilaterally. No wheezes, rales, or rhonchi. CARDIAC: Regular rate and rhythm. S1 and S2, without murmurs, gallops, or rubs. VASCULAR: chronic Edema. Peripheral pulses normal and equal in all extremities. ABDOMEN: Soft, non tender and non distended. No rebound or guarding, and no masses palpated. Bowel Sounds normal. MUSCULOSKELETAL: chronic venous changes bilateral lower ext NEUROLOGIC EXAM: Nonresponsive not following commands opens eyes otherwise PSYCHIATRIC: Unable to examine SKIN: Multiple excoriations multiple pressure ulcers, detail exam as documented in skin assessment - Constitutional Vitals: Temp Pulse Resp BP Pulse Ox 100.3 F H 110 H 21 90/41 96 03/17/20 06:35 03/17/20 09:30 03/17/20 09:30 03/17/20 10:30 03/17/20 10:30 General appearance: Present: severe distress HEART Score - HEART Score Troponin: Troponin T 0.047 ng/mL (0.00-0.029) H D 03/16/20 22:25 Results - Labs CBC & Chem 7: 03/16/20 14:22 03/16/20 14:22 Labs: Laboratory Last Values WBC 32.2 K/mm3 (4.5-11.0) H 03/16/20 14:22 RBC 2.93 M/mm3 (3.65-5.03) L 03/16/20 14:22 Hgb 8.9 gm/dl (11.8-15.2) L 03/16/20 14:22 Hct 28.2 % (35.5-45.6) L 03/16/20 14:22 MCV 96 fl (84-94) H 03/16/20 14:22 MCH 30 pg (28-32) 03/16/20 14:22 MCHC 32 % (32-34) 03/16/20 14:22 RDW 18.1 % (13.2-15.2) H 03/16/20 14:22 Plt Count 232 K/mm3 (140-440) 03/16/20 14:22 Add Manual Diff Complete 03/16/20 14:22 Total Counted 100 03/16/20 14:22 Seg Neuts % (Manual) 82.0 % (40.0-70.0) H 03/16/20 14:22 Band Neutrophils % 0 % 03/16/20 14:22 Lymphocytes % (Manual) 10.0 % (13.4-35.0) L 03/16/20 14:22 Reactive Lymphs % (Man) 0 % 03/16/20 14:22 Monocytes % (Manual) 6.0 % (0.0-7.3) 03/16/20 14:22 Eosinophils % (Manual) 0 % (0.0-4.3) 03/16/20 14:22 Basophils % (Manual) 0 % (0.0-1.8) 03/16/20 14:22 Metamyelocytes % 0 % 03/16/20 14:22 Myelocytes % 0 % 03/16/20 14:22 Promyelocytes % 2.0 % 03/16/20 14:22 Blast Cells % 0 % 03/16/20 14:22 Nucleated RBC % 3.0 % (0.0-0.9) H 03/16/20 14:22 Seg Neutrophils # Man 26.4 K/mm3 (1.8-7.7) H 03/16/20 14:22 Band Neutrophils # 0.0 K/mm3 03/16/20 14:22 Lymphocytes # (Manual) 3.2 K/mm3 (1.2-5.4) 03/16/20 14:22 Abs React Lymphs (Man) 0.0 K/mm3 03/16/20 14:22 Monocytes # (Manual) 1.9 K/mm3 (0.0-0.8) H 03/16/20 14:22 Eosinophils # (Manual) 0.0 K/mm3 (0.0-0.4) 03/16/20 14:22 Basophils # (Manual) 0.0 K/mm3 (0.0-0.1) 03/16/20 14:22 Metamyelocytes # 0.0 K/mm3 03/16/20 14:22 Myelocytes # 0.0 K/mm3 03/16/20 14:22 Promyelocytes # 0.6 K/mm3 03/16/20 14:22 Blast Cells # 0.0 K/mm3 03/16/20 14:22 Pathologist Review 03/16/20 14:22 Hypersegmented Neuts Not Reportable 03/16/20 14:22 Hyposegmented Neuts Not Reportable 03/16/20 14:22 Hypogranular Neuts Not Reportable 03/16/20 14:22 Smudge Cells Not Reportable 03/16/20 14:22 Toxic Granulation Not Reportable 03/16/20 14:22 Toxic Vacuolation Not Reportable 03/16/20 14:22 Dohle Bodies Not Reportable 03/16/20 14:22 Pelger-Huet Anomaly Not Reportable 03/16/20 14:22 Santiago Rods Not Reportable 03/16/20 14:22 Platelet Estimate Not Reportable 03/16/20 14:22 Clumped Platelets Not Reportable 03/16/20 14:22 Plt Clumps, EDTA Not Reportable 03/16/20 14:22 Large Platelets Not Reportable 03/16/20 14:22 Giant Platelets Not Reportable 03/16/20 14:22 Platelet Satelliting Not Reportable 03/16/20 14:22 Plt Morphology Comment Not Reportable 03/16/20 14:22 RBC Morphology Normal 03/16/20 14:22 Dimorphic RBCs Not Reportable 03/16/20 14:22 Polychromasia Not Reportable 03/16/20 14:22 Hypochromasia Not Reportable 03/16/20 14:22 Poikilocytosis Not Reportable 03/16/20 14:22 Anisocytosis Not Reportable 03/16/20 14:22 Microcytosis Not Reportable 03/16/20 14:22 Macrocytosis Not Reportable 03/16/20 14:22 Spherocytes Not Reportable 03/16/20 14:22 Pappenheimer Bodies Not Reportable 03/16/20 14:22 Sickle Cells Not Reportable 03/16/20 14:22 Target Cells Not Reportable 03/16/20 14:22 Tear Drop Cells Not Reportable 03/16/20 14:22 Ovalocytes Not Reportable 03/16/20 14:22 Helmet Cells Not Reportable 03/16/20 14:22 [place] Bodies Not Reportable 03/16/20 14:22 [place] Rings Not Reportable 03/16/20 14:22 Luis Alfredo Cells Not Reportable 03/16/20 14:22 Bite Cells Not Reportable 03/16/20 14:22 Crenated Cell Not Reportable 03/16/20 14:22 Elliptocytes Not Reportable 03/16/20 14:22 Acanthocytes (Spur) Not Reportable 03/16/20 14:22 Rouleaux Not Reportable 03/16/20 14:22 Hemoglobin C Crystals Not Reportable 03/16/20 14:22 Schistocytes Not Reportable 03/16/20 14:22 Malaria parasites Not Reportable 03/16/20 14:22 Isauro Bodies Not Reportable 03/16/20 14:22 Hem Pathologist Commnt Sent to pathology 03/16/20 14:22 PT 17.2 Sec. (12.2-14.9) H 03/16/20 14:27 INR 1.37 (0.87-1.13) H 03/16/20 14:27 APTT 51.3 Sec. (24.2-36.6) H 03/16/20 14:27 ABG pH 7.229 pH Units (7.350-7.450) L 03/17/20 Unknown ABG pCO2 35.7 mm Hg 03/17/20 Unknown ABG pO2 98.3 mm Hg (80.0-90.0) H 03/17/20 Unknown ABG HCO3 14.6 mmol/L (20.0-26.0) L 03/17/20 Unknown ABG O2 Saturation 97.0 % (95.0-99.0) 03/17/20 Unknown ABG O2 Content 12.1 (0.0-44) 03/17/20 Unknown ABG Base Excess -12.0 mmol/L (-2.0-3.0) L 03/17/20 Unknown ABG Hemoglobin 8.9 gm/dl (14.0-18.0) L 03/17/20 Unknown ABG Carboxyhemoglobin 1.4 % (0.0-5.0) 03/17/20 Unknown ABG Methemoglobin 0.6 % (0.0-1.5) 03/17/20 Unknown Oxyhemoglobin 95.0 % (95.0-99.0) 03/17/20 Unknown FiO2 36 % 03/17/20 Unknown Sodium 144 mmol/L (137-145) 03/16/20 14:22 Potassium 3.3 mmol/L (3.6-5.0) L 03/16/20 14:22 Chloride 108.9 mmol/L (98-107) H 03/16/20 14:22 Carbon Dioxide 12 mmol/L (22-30) L 03/16/20 14:22 Anion Gap 26 mmol/L 03/16/20 14:22 BUN 59 mg/dL (9-20) H 03/16/20 14:22 Creatinine 5.9 mg/dL (0.8-1.3) H 03/16/20 14:22 Estimated GFR 11 ml/min 03/16/20 14:22 BUN/Creatinine Ratio 10 % 03/16/20 14:22 Glucose 142 mg/dL (75-100) H 03/16/20 14:22 Lactic Acid 1.80 mmol/L (0.7-2.0) 03/16/20 Unknown Calcium 7.7 mg/dL (8.4-10.2) L 03/16/20 14:22 Magnesium 1.80 mg/dL (1.7-2.3) 03/16/20 14:23 Total Bilirubin 0.20 mg/dL (0.1-1.2) 03/16/20 14:22 AST 22 units/L (5-40) 03/16/20 14:22 ALT 8 units/L (7-56) 03/16/20 14:22 Alkaline Phosphatase 224 units/L (35-129) H 03/16/20 14:22 Troponin T 0.047 ng/mL (0.00-0.029) H D 03/16/20 22:25 Total Protein 5.4 g/dL (6.3-8.2) L 03/16/20 14:22 Albumin 1.9 g/dL (3.9-5) L 03/16/20 14:22 Albumin/Globulin Ratio 0.5 % 03/16/20 14:22 Triglycerides 107 mg/dL (2-149) 03/16/20 14:23 Cholesterol 95 mg/dL (50-199) 03/16/20 14:23 LDL Cholesterol Direct 35 mg/dL (50-130) L 03/16/20 14:23 HDL Cholesterol 37 mg/dL (40-59) L 03/16/20 14:23 Cholesterol/HDL Ratio 2.56 % 03/16/20 14:23 Urine Color Shruthi (Yellow) 03/16/20 21:15 Urine Turbidity Turbid (Clear) 03/16/20 21:15 Urine pH 5.0 (5.0-7.0) 03/16/20 21:15 Ur Specific [place] 1.014 (1.003-1.030) 03/16/20 21:15 Urine Protein 100 mg/dl mg/dL (Negative) 03/16/20 21:15 Urine Glucose (UA) 50 mg/dL (Negative) 03/16/20 21:15 Urine Ketones Neg mg/dL (Negative) 03/16/20 21:15 Urine Blood Sm (Negative) 03/16/20 21:15 Urine Nitrite Neg (Negative) 03/16/20 21:15 Urine Bilirubin Neg (Negative) 03/16/20 21:15 Urine Urobilinogen < 2.0 mg/dL (<2.0) 03/16/20 21:15 Ur Leukocyte Esterase Lg (Negative) 03/16/20 21:15 Urine WBC (Auto) > 182.0 /HPF (0.0-6.0) H 03/16/20 21:15 Urine RBC (Auto) 25.0 /HPF (0.0-6.0) 03/16/20 21:15 U Epithel Cells (Auto) 2.0 /HPF (0-13.0) 03/16/20 21:15 Urine WBC Clumps 3+ /HPF 03/16/20 21:15 Urine Mucus Few /HPF 03/16/20 21:15 Urine Yeast (Budding) 2+ /HPF 03/16/20 21:15 Microbiology: Microbiology 03/16/20 14:15 Peripheral/Venous Blood Culture - Preliminary Culture in Progress 03/16/20 14:15 Peripheral/Venous Blood Culture - Preliminary Culture in Progress Cunningham/IV: IV Catheter Type [right wrist] Peripheral IV IV Catheter Type [Left Upper PICC Line arm] Active Medications - Current Medications Current Medications: Generic Name Dose Route Start Last Admin Trade Name Freq PRN Reason Stop Dose Admin Acetaminophen 650 mg 03/16/20 17:30 Tylenol PO Q6H PRN Pain, Mild (1-3) Albuterol 2.5 mg 03/16/20 17:00 Proventil IH Q3HRT PRN Shortness Of Breath Heparin Sodium (Porcine) 5,000 unit 03/16/20 22:00 03/16/20 23:44 Heparin SUB-Q 5,000 unit Q12HR IDRIS Administration Hydromorphone HCl 0.25 mg 03/16/20 17:30 Dilaudid IV Q4H PRN Pain, Moderate (4-6) Levofloxacin/Dextrose 750 mg in 150 mls @ 100 mls/hr 03/17/20 10:00 Levaquin 750mg/150ml IV 03/17/20 23:00 Q24HR IDRIS Protocol Sodium Chloride 1,000 mls @ 125 mls/hr 03/16/20 17:00 Nacl 0.9% 1000 Ml IV DIRECT IDRIS Levofloxacin/Dextrose 500 mg in 100 mls @ 100 mls/hr 03/19/20 10:00 Levaquin 500mg/100ml IV Q48H IDRIS Vasopressin 20 unit/ Sodium 101 mls @ 9.09 mls/hr 03/16/20 20:00 03/17/20 04:20 Chloride IV 0.03 units/min TITR IDRIS 9.09 mls/hr Administration Protocol 0.03 UNITS/MIN Norepinephrine 8 mg/ Sodium 250 mls @ 3.75 mls/hr 03/16/20 23:00 03/17/20 08:26 Chloride IV 30 mcg/min TITR IDRIS 56.25 mls/hr Administration Protocol 2 MCG/MIN Dextrose 1,000 mls @ 125 mls/hr 03/16/20 20:41 D5w IV DIRECT IDRIS Epinephrine 8 mg/ Sodium 250 mls @ 3.75 mls/hr 03/17/20 04:00 03/17/20 05:36 Chloride IV 10 mcg/min TITR IDRIS 18.75 mls/hr Titration Protocol 2 MCG/MIN Sodium Chloride 2,000 mls @ 999 mls/hr 03/17/20 09:30 Nacl 0.9% 1000 Ml IV 03/17/20 11:30 BOLUS ONE Methylprednisolone Sodium Succinate 40 mg 03/16/20 22:00 03/16/20 23:00 Solu-Medrol IV 40 mg Q8HR IDRIS Administration Sodium Chloride 10 ml 03/16/20 22:00 03/16/20 22:00 Sodium Chloride Flush Syringe 10 Ml IV 10 ml BID IDRIS Administration Sodium Chloride 10 ml 03/16/20 17:00 Sodium Chloride Flush Syringe 10 Ml IV PRN PRN LINE FLUSH
[2020-03-17] MEDS ORDERED: HEPARIN 5,000 UNIT/1 ML VIAL ONE ×2 (11:25→23:36)
[2020-03-17] MEDS: HEPARIN 5,000 UNIT/1 ML VIAL SUB-Q SCH ×2 (11:27→23:38)
[2020-03-17] MEDS ORDERED: VANCOMYCIN PHARMACY TO DOSE IV SCH (12:00)
[2020-03-17 12:07] LABS: Hematocrit 25.2 % (35.5-45.6); Hemoglobin 7.8 gm/dl (11.8-15.2); Mean Corpuscular HGB Conc 31 % (32-34); Mean Corpuscular Volume 97 fl (84-94); Platelet Count 270 K/mm3 (140-440); Red Cell Distribution Width 18.7 % (13.2-15.2)
[2020-03-17 12:40] LABS: Bacteria,Urine 2+ /HPF (Negative); Bilirubin,Urine NEG (Negative); Blood,Urine SM (Negative); Color,Urine Amber (Yellow); Mucus,Urine 1+ /HPF
[2020-03-17 12:45] LABS: WBC,Urine > 182.0 /HPF (0.0-6.0)
[2020-03-17 12:46] LABS: Creatinine,Urine 139.3 mg/dL (0.1-20.0)
[2020-03-17 13:05] LABS: Protein/Creatinine Ratio,Urine 2.35
--- NOTE | 2020-03-17 13:33 | Progress Note ---
Assessment and Plan Acute hypoxemic respiratory failure Septic shock Acute Toxic metabolic encephalopathy Acute kidney injury (ALEJANDRO) with acute tubular necrosis (ATN) PUI COVID-19 Sacral decubitus ulcer h/o VTE Hypothermia Obesity Adult FTT - get ABG and address - use BIPAP scheduled qhs - volume resuscitation with alkalanized isotonic fluids acutely - follow stat 2D ECHO results - get markers re: Procalcitonin, CRP, lactate to aid clinical; decision making - begin enteral nutritional support and advance to goal rate as tolerated - aspiration precautions (HOB >/= 40 degrees) - strict I's & O's acutely - continue care as below otherwise; - empiric antiinfective's per ID rec's - accuchecks with glycemic control per SSI (While critically ill target blood glucose of 140-180 mg/dL; avoid hypoglycemia) - wean supplemental oxygen for target O2 sat's > 90% acutely - bronchodilators with pulmonary hygiene per RT - avoid nephrotoxins, renally dose all medications - avoid benzodiazepine's, reduce the possibility of delirium - prn analgesia per CPOT score - Maintenance of sleep-wake cycle, avoid delirium - G.I. & VTE prophylaxis - PT/OT/ROM exercises - continue mobility protocols for pressure ulcer prophylaxis - Monitor hemodynamics closely - continue other care per attending / other consultants - discharge planning ongoing concurrently .... Re-evaluate in am & prn CONDITION: CRITICAL PROGNOSIS: GUARDED CODE STATUS: FULL CODE The high probability of a clinically significant, sudden or life-threatening deterioration of the [respiratory, cardiovascular, Renal & neurologic] system(s) required my full and direct attention, intervention and personal management. The aggregate critical care time was [34] minutes without overlap. Time includes spent on; [x] Data Review and interpretation [x] Patient assessment and monitoring of vital signs [x] Documentation [x] Medication orders and management Subjective Date of service: 03/17/20 Principal diagnosis: Acute hypoxemic respiratory failure; Septic shock; Ac. encephalopathy; ALEJANDRO Interval history: Patient is seen today for: Acute hypoxemic respiratory failure; Septic shock; Acute Toxic metabolic encephalopathy; ALEJANDRO; PUI COVID-19; Sacral decubitus ulcer; h/o VTE; Hypothermia; Obesity; Adult FTT Seen and examined at bedside; 24hour events reviewed; nursing and respiratory care staff consulted; no adverse overnight events reported to me; resting peacefully in bed; off BIPAP; AMS is persistent; on vasopressin, levophed & Epinephtrine at max doses; no emesis or overt aspiration Objective Vital Signs - 12hr 03/17/20 03/17/20 03/17/20 01:45 02:00 02:15 Temperature Pulse Rate 86 91 H 91 H Respiratory 30 H 31 H 30 H Rate Blood Pressure 92/47 92/47 88/48 O2 Sat by Pulse 97 98 96 Oximetry 03/17/20 03/17/20 03/17/20 02:30 02:45 03:00 Temperature Pulse Rate 90 91 H 92 H Respiratory 26 H 31 H 30 H Rate Blood Pressure 95/45 83/47 89/45 O2 Sat by Pulse 98 98 Oximetry 03/17/20 03/17/20 03/17/20 03:15 03:30 03:45 Temperature Pulse Rate 91 H 91 H 89 Respiratory 32 H 40 H 27 H Rate Blood Pressure 87/46 94/46 88/46 O2 Sat by Pulse 98 96 Oximetry 03/17/20 03/17/20 03/17/20 04:00 04:15 04:30 Temperature Pulse Rate 90 93 H 95 H Respiratory 30 H 26 H 28 H Rate Blood Pressure 85/45 84/45 87/43 O2 Sat by Pulse 100 Oximetry 03/17/20 03/17/20 03/17/20 04:45 05:00 05:15 Temperature Pulse Rate 93 H 94 H 96 H Respiratory 25 H 25 H 28 H Rate Blood Pressure 96/47 91/44 90/46 O2 Sat by Pulse 96 Oximetry 03/17/20 03/17/20 03/17/20 05:30 05:45 06:00 Temperature Pulse Rate 97 H 97 H 99 H Respiratory 26 H 25 H 29 H Rate Blood Pressure 85/45 91/36 90/37 O2 Sat by Pulse 96 99 98 Oximetry 03/17/20 03/17/20 03/17/20 06:16 06:30 06:35 Temperature 100.3 F H Pulse Rate 96 H Respiratory 25 H Rate Blood Pressure 87/30 78/32 O2 Sat by Pulse 98 97 Oximetry 03/17/20 03/17/20 03/17/20 06:45 07:00 07:15 Temperature Pulse Rate 97 H 97 H 96 H Respiratory 25 H 25 H 25 H Rate Blood Pressure 85/34 78/35 87/35 O2 Sat by Pulse 98 98 98 Oximetry 03/17/20 03/17/20 03/17/20 07:30 07:45 08:00 Temperature Pulse Rate 99 H 101 H 100 H Respiratory 27 H 33 H 27 H Rate Blood Pressure 88/34 95/38 82/38 O2 Sat by Pulse 98 98 98 Oximetry 03/17/20 03/17/20 03/17/20 08:15 08:30 08:45 Temperature Pulse Rate 100 H 99 H 101 H Respiratory 26 H 29 H 25 H Rate Blood Pressure 80/36 66/32 84/34 O2 Sat by Pulse 98 98 98 Oximetry 03/17/20 03/17/20 03/17/20 09:00 09:15 09:30 Temperature Pulse Rate 101 H 100 H 110 H Respiratory 24 23 21 Rate Blood Pressure 89/34 86/35 87/42 O2 Sat by Pulse 98 98 79 L Oximetry 03/17/20 03/17/20 03/17/20 09:45 10:00 10:15 Temperature Pulse Rate Respiratory Rate Blood Pressure 96/40 92/35 96/40 O2 Sat by Pulse 93 97 97 Oximetry 03/17/20 03/17/20 03/17/20 10:30 10:45 11:00 Temperature Pulse Rate 97 H Respiratory 18 Rate Blood Pressure 90/41 96/43 96/40 O2 Sat by Pulse 96 98 92 Oximetry 03/17/20 03/17/20 03/17/20 11:15 11:30 11:45 Temperature Pulse Rate 93 H 93 H 93 H Respiratory 18 18 18 Rate Blood Pressure 106/45 93/46 95/49 O2 Sat by Pulse 100 99 Oximetry 03/17/20 03/17/20 03/17/20 12:00 12:15 12:30 Temperature Pulse Rate 95 H 93 H 93 H Respiratory 18 23 22 Rate Blood Pressure 105/54 94/48 96/49 O2 Sat by Pulse 100 100 95 Oximetry 03/17/20 03/17/20 03/17/20 12:45 13:00 13:15 Temperature Pulse Rate 77 92 H 94 H Respiratory 25 H 26 H 30 H Rate Blood Pressure 89/45 89/45 101/49 O2 Sat by Pulse 85 93 99 Oximetry Constitutional: appears uncomfortable, other (elderly obese male with normal respiratory effort at rest ) Eyes: non-icteric ENT: oropharynx dry, other (right nares NGT) Neck: supple, no JVD, other (large neck circumference) Effort: mildly labored Ascultation: Bilateral: diminished breath sounds, rhonchi (scant RLL) Percussion: Bilateral: not dull Cardiovascular: other (S1,S2, Tachycardia, hypotension on Norepinephrine) Gastrointestinal: normoactive bowel sounds, soft, non-tender, non-distended (protuberant) Integumentary: rash (Generalized skin flaking/with superficial skin sloughing without erythema or warmth on chest wall), decubitus ulcer (see RN/WCN notes for details) Extremities: pulses normal, cool Neurologic: pupils equal and round, unable to assess Psychiatric: other (unable to assess re: AMS) CBC and BMP: 03/17/20 11:13 03/17/20 11:13 ABG, PT/INR, D-dimer: ABG ABG pH 7.229 pH Units (7.350-7.450) L 03/17/20 Unknown ABG pCO2 35.7 mm Hg 03/17/20 Unknown ABG pO2 98.3 mm Hg (80.0-90.0) H 03/17/20 Unknown ABG O2 Saturation 97.0 % (95.0-99.0) 03/17/20 Unknown PT/INR, D-dimer PT 17.2 Sec. (12.2-14.9) H 03/16/20 14:27 INR 1.37 (0.87-1.13) H 03/16/20 14:27 Abnormal lab findings: Abnormal Labs 03/16/20 03/16/20 03/16/20 14:22 14:22 14:23 WBC 32.2 H RBC 2.93 L Hgb 8.9 L Hct 28.2 L MCV 96 H MCHC RDW 18.1 H Seg Neuts % (Manual) 82.0 H Lymphocytes % (Manual) 10.0 L Nucleated RBC % 3.0 H Seg Neutrophils # Man 26.4 H Monocytes # (Manual) 1.9 H PT INR APTT ABG pH ABG pO2 ABG HCO3 ABG Base Excess ABG Hemoglobin Potassium 3.3 L Chloride 108.9 H Carbon Dioxide 12 L BUN 59 H Creatinine 5.9 H Glucose 142 H Calcium 7.7 L Alkaline Phosphatase 224 H Total Creatine Kinase Troponin T 0.033 H Total Protein 5.4 L Albumin 1.9 L LDL Cholesterol Direct 35 L HDL Cholesterol 37 L Urine WBC (Auto) Urine Creatinine Urine Total Protein 03/16/20 03/16/20 03/16/20 14:27 19:50 21:15 WBC RBC Hgb Hct MCV MCHC RDW Seg Neuts % (Manual) Lymphocytes % (Manual) Nucleated RBC % Seg Neutrophils # Man Monocytes # (Manual) PT 17.2 H INR 1.37 H APTT 51.3 H ABG pH ABG pO2 ABG HCO3 ABG Base Excess ABG Hemoglobin Potassium Chloride Carbon Dioxide BUN Creatinine Glucose Calcium Alkaline Phosphatase Total Creatine Kinase Troponin T 0.031 H Total Protein Albumin LDL Cholesterol Direct HDL Cholesterol Urine WBC (Auto) > 182.0 H Urine Creatinine Urine Total Protein 03/16/20 03/17/20 03/17/20 22:25 11:13 11:13 WBC 34.4 H RBC 2.60 L Hgb 7.8 L Hct 25.2 L MCV 97 H MCHC 31 L RDW 18.7 H Seg Neuts % (Manual) Lymphocytes % (Manual) Nucleated RBC % Seg Neutrophils # Man Monocytes # (Manual) PT INR APTT ABG pH ABG pO2 ABG HCO3 ABG Base Excess ABG Hemoglobin Potassium 3.3 L Chloride 108.5 H Carbon Dioxide 16 L BUN 57 H Creatinine 5.5 H Glucose 325 H Calcium 7.0 L Alkaline Phosphatase Total Creatine Kinase Troponin T 0.047 H D Total Protein Albumin LDL Cholesterol Direct HDL Cholesterol Urine WBC (Auto) Urine Creatinine Urine Total Protein 03/17/20 03/17/20 03/17/20 11:13 11:40 Unknown WBC RBC Hgb Hct MCV MCHC RDW Seg Neuts % (Manual) Lymphocytes % (Manual) Nucleated RBC % Seg Neutrophils # Man Monocytes # (Manual) PT INR APTT ABG pH 7.229 L ABG pO2 98.3 H ABG HCO3 14.6 L ABG Base Excess -12.0 L ABG Hemoglobin 8.9 L Potassium Chloride Carbon Dioxide BUN Creatinine Glucose Calcium Alkaline Phosphatase Total Creatine Kinase 373 H Troponin T Total Protein Albumin LDL Cholesterol Direct HDL Cholesterol Urine WBC (Auto) > 182.0 H Urine Creatinine Urine Total Protein 03/17/20 Unknown WBC RBC Hgb Hct MCV MCHC RDW Seg Neuts % (Manual) Lymphocytes % (Manual) Nucleated RBC % Seg Neutrophils # Man Monocytes # (Manual) PT INR APTT ABG pH ABG pO2 ABG HCO3 ABG Base Excess ABG Hemoglobin Potassium Chloride Carbon Dioxide BUN Creatinine Glucose Calcium Alkaline Phosphatase Total Creatine Kinase Troponin T Total Protein Albumin LDL Cholesterol Direct HDL Cholesterol Urine WBC (Auto) Urine Creatinine 139.3 H Urine Total Protein 328 H Chest x-ray: pending Allied health notes reviewed: nursing
[2020-03-17 13:34] LABS: Band Neutrophils # (Manual) 2.1 K/mm3; Basophils % (Manual) 0 % (0.0-1.8); Eosinophils % (Manual) 0 % (0.0-4.3); Total Cells Counted 100
[2020-03-17 13:35] LABS: Anisocytosis 2+; Macrocytosis 1+; Platelet Clumps Rare; Platelet Estimate Consistent w Auto
[2020-03-17] MEDS: MEROPENEM/NS 1 GRAM/100 ML 1 GRAM/100 ML BAG IV SCH (13:42)
--- NOTE | 2020-03-17 14:32 | Consultation ---
History of Present Illness - Reason for Consult Consult date: 03/17/20 septic shock Requesting physician: OVI PIERSON - History of Present Illness 79 years old male with history of hypertension, diabetes mellitus, chronic kidney disease, previous CVA, chronic leg lymphedema, [facility] resident, known to our service due to previous ESBL E. coli bacteremia from UTI on 03/02/2020, admitted on due to 24 hours history of generalized weakness and confusion associated with subjective fever. Patient is unable to provide history, currently with lethargy on 3 pressors. Of note ESBL bacteremia was treated with ertapenem 1 g IV once a day for 14 days until 03/20/2020 via PICC line. On arrival, temperature 90, HR 62, RR 16, O2 sat 97, BP 76/33. Initial WBC 32.2. Hemoglobin 8.9. Creatinine 5.9. Urinalysis with 182 WBCs and large leukocyte esterase. 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 Review of Systems: Unable to obtain Past History Past Medical History: diabetes, hypertension, renal failure, other (See HPI) Past Surgical History: Other (Spinal fusion) Social history: single. denies: smoking, prescription drug abuse Family history: diabetes, hypertension Medications and Allergies Allergies Allergy/AdvReac Type Severity Reaction Status Date / Time diclofenac [Diclofenac] Allergy Rash Verified 10/05/18 08:11 Home Medications Medication Instructions Recorded Confirmed Last Taken Type Acetaminophen [Acetaminophen TAB] 650 mg PO Q4H PRN #1 tablet 02/28/17 03/02/20 Unknown Rx Aspirin [Aspirin BABY CHEW TAB] 81 mg PO DAILY #1 tab.chew 02/28/17 03/02/20 Unknown Rx Ferrous Sulfate [Feosol 325 MG tab] 325 mg PO QDAY #1 tablet 02/28/17 03/02/20 Unknown Rx Gabapentin 300 mg PO Q8HR #1 capsule 02/28/17 03/02/20 Unknown Rx Ondansetron [Zofran INJ] 4 mg IV Q8H PRN #1 vial 02/28/17 03/02/20 Unknown Rx amLODIPine 10 mg PO DAILY #1 tablet 02/28/17 03/02/20 Unknown Rx Ertapenem [INVanz] 1 gm IV QDAY vial 03/10/20 Unknown Rx Active Meds: Active Medications Acetaminophen (Tylenol) 650 mg PO Q6H PRN PRN Reason: Pain, Mild (1-3) Albuterol (Proventil) 2.5 mg IH Q3HRT PRN PRN Reason: Shortness Of Breath Heparin Sodium (Porcine) (Heparin) 5,000 unit SUB-Q Q12HR IDRIS Last Admin: 03/17/20 11:27 Dose: 5,000 unit Documented by: Hydromorphone HCl (Dilaudid) 0.25 mg IV Q4H PRN PRN Reason: Pain, Moderate (4-6) Sodium Chloride (Nacl 0.9% 1000 Ml) 1,000 mls @ 125 mls/hr IV DIRECT IDRIS Vasopressin 20 unit/ Sodium (Chloride) 101 mls @ 9.09 mls/hr IV TITR IDRIS; Protocol Last Admin: 03/17/20 04:20 Dose: 0.03 units/min, 9.09 mls/hr Documented by: Norepinephrine 8 mg/ Sodium (Chloride) 250 mls @ 3.75 mls/hr IV TITR IDRIS; Protocol Last Admin: 03/17/20 12:47 Dose: 30 mcg/min, 56.25 mls/hr Documented by: Dextrose (D5w) 1,000 mls @ 125 mls/hr IV DIRECT IDRIS Epinephrine 8 mg/ Sodium (Chloride) 250 mls @ 3.75 mls/hr IV TITR IDRIS; Protocol Last Titration: 03/17/20 05:36 Dose: 10 mcg/min, 18.75 mls/hr Documented by: MEROPENEM/NS 1 GRAM/100 ML (Merrem/Ns 1 Gram/100 Ml) 1 gram in 100 mls @ 100 mls/hr IV Q24HR IDRIS; Protocol Last Admin: 03/17/20 13:42 Dose: 100 mls/hr Documented by: Methylprednisolone Sodium Succinate (Solu-Medrol) 40 mg IV Q8HR IDRIS Last Admin: 03/16/20 23:00 Dose: 40 mg Documented by: Sodium Chloride (Sodium Chloride Flush Syringe 10 Ml) 10 ml IV BID IDRIS Last Admin: 03/17/20 11:23 Dose: 10 ml Documented by: Sodium Chloride (Sodium Chloride Flush Syringe 10 Ml) 10 ml IV PRN PRN PRN Reason: LINE FLUSH Physical Examination - Physical Exam Narrative exam: General appearance: Lethargic in no acute distress Eyes: anicteric sclerae, moist conjunctivae; no lid-lag; PERRLA lid edema HENT: Normocephalic, Atraumatic; normal external ears, nares open, oropharynx limited Neck: supple, tracheal midline, no JVD Lungs: Diminished breath sounds bilaterally CV: RRR no murmur Abdomen: Soft, non-tender Extremities: Extensive bilateral leg edema, chronic skin changes Skin: No rash. Psych: Lethargic Neuro: Lethargic - Constitutional Vitals: Vital Signs Temp Pulse Resp BP Pulse Ox 100.3 F H 95 H 27 H 103/56 96 03/17/20 06:35 03/17/20 14:15 03/17/20 14:15 03/17/20 14:15 03/17/20 14:15 Temperature -Last 24 Hours Temperature 100.3 F Temperature 100.5 F Temperature 94.8 F Temperature 92.5 F Results - Labs CBC & Chem 7: 03/17/20 11:13 03/17/20 11:13 Labs: Abnormal lab results 03/16/20 03/16/20 03/16/20 Range/Units 14:22 14:22 14:23 WBC 32.2 H (4.5-11.0) K/mm3 RBC 2.93 L (3.65-5.03) M/mm3 Hgb 8.9 L (11.8-15.2) gm/dl Hct 28.2 L (35.5-45.6) % MCV 96 H (84-94) fl MCHC (32-34) % RDW 18.1 H (13.2-15.2) % Seg Neuts % (Manual) 82.0 H (40.0-70.0) % Lymphocytes % (Manual) 10.0 L (13.4-35.0) % Nucleated RBC % 3.0 H (0.0-0.9) % Seg Neutrophils # Man 26.4 H (1.8-7.7) K/mm3 Lymphocytes # (Manual) (1.2-5.4) K/mm3 Monocytes # (Manual) 1.9 H (0.0-0.8) K/mm3 PT (12.2-14.9) Sec. INR (0.87-1.13) APTT (24.2-36.6) Sec. ABG pH (7.350-7.450) pH Units ABG pO2 (80.0-90.0) mm Hg ABG HCO3 (20.0-26.0) mmol/L ABG Base Excess (-2.0-3.0) mmol/L ABG Hemoglobin (14.0-18.0) gm/dl Potassium 3.3 L (3.6-5.0) mmol/L Chloride 108.9 H (98-107) mmol/L Carbon Dioxide 12 L (22-30) mmol/L BUN 59 H (9-20) mg/dL Creatinine 5.9 H (0.8-1.3) mg/dL Glucose 142 H (75-100) mg/dL Calcium 7.7 L (8.4-10.2) mg/dL Alkaline Phosphatase 224 H (35-129) units/L Total Creatine Kinase (55-170) units/L Troponin T 0.033 H (0.00-0.029) ng/mL Total Protein 5.4 L (6.3-8.2) g/dL Albumin 1.9 L (3.9-5) g/dL LDL Cholesterol Direct 35 L (50-130) mg/dL HDL Cholesterol 37 L (40-59) mg/dL Urine WBC (Auto) (0.0-6.0) /HPF Urine Creatinine (0.1-20.0) mg/dL Urine Total Protein (5-11.8) mg/dL 03/16/20 03/16/20 03/16/20 Range/Units 14:27 19:50 21:15 WBC (4.5-11.0) K/mm3 RBC (3.65-5.03) M/mm3 Hgb (11.8-15.2) gm/dl Hct (35.5-45.6) % MCV (84-94) fl MCHC (32-34) % RDW (13.2-15.2) % Seg Neuts % (Manual) (40.0-70.0) % Lymphocytes % (Manual) (13.4-35.0) % Nucleated RBC % (0.0-0.9) % Seg Neutrophils # Man (1.8-7.7) K/mm3 Lymphocytes # (Manual) (1.2-5.4) K/mm3 Monocytes # (Manual) (0.0-0.8) K/mm3 PT 17.2 H (12.2-14.9) Sec. INR 1.37 H (0.87-1.13) APTT 51.3 H (24.2-36.6) Sec. ABG pH (7.350-7.450) pH Units ABG pO2 (80.0-90.0) mm Hg ABG HCO3 (20.0-26.0) mmol/L ABG Base Excess (-2.0-3.0) mmol/L ABG Hemoglobin (14.0-18.0) gm/dl Potassium (3.6-5.0) mmol/L Chloride (98-107) mmol/L Carbon Dioxide (22-30) mmol/L BUN (9-20) mg/dL Creatinine (0.8-1.3) mg/dL Glucose (75-100) mg/dL Calcium (8.4-10.2) mg/dL Alkaline Phosphatase (35-129) units/L Total Creatine Kinase (55-170) units/L Troponin T 0.031 H (0.00-0.029) ng/mL Total Protein (6.3-8.2) g/dL Albumin (3.9-5) g/dL LDL Cholesterol Direct (50-130) mg/dL HDL Cholesterol (40-59) mg/dL Urine WBC (Auto) > 182.0 H (0.0-6.0) /HPF Urine Creatinine (0.1-20.0) mg/dL Urine Total Protein (5-11.8) mg/dL 03/16/20 03/17/20 03/17/20 Range/Units 22:25 11:13 11:13 WBC 34.4 H (4.5-11.0) K/mm3 RBC 2.60 L (3.65-5.03) M/mm3 Hgb 7.8 L (11.8-15.2) gm/dl Hct 25.2 L (35.5-45.6) % MCV 97 H (84-94) fl MCHC 31 L (32-34) % RDW 18.7 H (13.2-15.2) % Seg Neuts % (Manual) 88.0 H (40.0-70.0) % Lymphocytes % (Manual) 1.0 L (13.4-35.0) % Nucleated RBC % 13.0 H (0.0-0.9) % Seg Neutrophils # Man 30.3 H (1.8-7.7) K/mm3 Lymphocytes # (Manual) 0.3 L (1.2-5.4) K/mm3 Monocytes # (Manual) (0.0-0.8) K/mm3 PT (12.2-14.9) Sec. INR (0.87-1.13) APTT (24.2-36.6) Sec. ABG pH (7.350-7.450) pH Units ABG pO2 (80.0-90.0) mm Hg ABG HCO3 (20.0-26.0) mmol/L ABG Base Excess (-2.0-3.0) mmol/L ABG Hemoglobin (14.0-18.0) gm/dl Potassium 3.3 L (3.6-5.0) mmol/L Chloride 108.5 H (98-107) mmol/L Carbon Dioxide 16 L (22-30) mmol/L BUN 57 H (9-20) mg/dL Creatinine 5.5 H (0.8-1.3) mg/dL Glucose 325 H (75-100) mg/dL Calcium 7.0 L (8.4-10.2) mg/dL Alkaline Phosphatase (35-129) units/L Total Creatine Kinase (55-170) units/L Troponin T 0.047 H D (0.00-0.029) ng/mL Total Protein (6.3-8.2) g/dL Albumin (3.9-5) g/dL LDL Cholesterol Direct (50-130) mg/dL HDL Cholesterol (40-59) mg/dL Urine WBC (Auto) (0.0-6.0) /HPF Urine Creatinine (0.1-20.0) mg/dL Urine Total Protein (5-11.8) mg/dL 03/17/20 03/17/20 03/17/20 Range/Units 11:13 11:40 Unknown WBC (4.5-11.0) K/mm3 RBC (3.65-5.03) M/mm3 Hgb (11.8-15.2) gm/dl Hct (35.5-45.6) % MCV (84-94) fl MCHC (32-34) % RDW (13.2-15.2) % Seg Neuts % (Manual) (40.0-70.0) % Lymphocytes % (Manual) (13.4-35.0) % Nucleated RBC % (0.0-0.9) % Seg Neutrophils # Man (1.8-7.7) K/mm3 Lymphocytes # (Manual) (1.2-5.4) K/mm3 Monocytes # (Manual) (0.0-0.8) K/mm3 PT (12.2-14.9) Sec. INR (0.87-1.13) APTT (24.2-36.6) Sec. ABG pH 7.229 L (7.350-7.450) pH Units ABG pO2 98.3 H (80.0-90.0) mm Hg ABG HCO3 14.6 L (20.0-26.0) mmol/L ABG Base Excess -12.0 L (-2.0-3.0) mmol/L ABG Hemoglobin 8.9 L (14.0-18.0) gm/dl Potassium (3.6-5.0) mmol/L Chloride (98-107) mmol/L Carbon Dioxide (22-30) mmol/L BUN (9-20) mg/dL Creatinine (0.8-1.3) mg/dL Glucose (75-100) mg/dL Calcium (8.4-10.2) mg/dL Alkaline Phosphatase (35-129) units/L Total Creatine Kinase 373 H (55-170) units/L Troponin T (0.00-0.029) ng/mL Total Protein (6.3-8.2) g/dL Albumin (3.9-5) g/dL LDL Cholesterol Direct (50-130) mg/dL HDL Cholesterol (40-59) mg/dL Urine WBC (Auto) > 182.0 H (0.0-6.0) /HPF Urine Creatinine (0.1-20.0) mg/dL Urine Total Protein (5-11.8) mg/dL 03/17/20 Range/Units Unknown WBC (4.5-11.0) K/mm3 RBC (3.65-5.03) M/mm3 Hgb (11.8-15.2) gm/dl Hct (35.5-45.6) % MCV (84-94) fl MCHC (32-34) % RDW (13.2-15.2) % Seg Neuts % (Manual) (40.0-70.0) % Lymphocytes % (Manual) (13.4-35.0) % Nucleated RBC % (0.0-0.9) % Seg Neutrophils # Man (1.8-7.7) K/mm3 Lymphocytes # (Manual) (1.2-5.4) K/mm3 Monocytes # (Manual) (0.0-0.8) K/mm3 PT (12.2-14.9) Sec. INR (0.87-1.13) APTT (24.2-36.6) Sec. ABG pH (7.350-7.450) pH Units ABG pO2 (80.0-90.0) mm Hg ABG HCO3 (20.0-26.0) mmol/L ABG Base Excess (-2.0-3.0) mmol/L ABG Hemoglobin (14.0-18.0) gm/dl Potassium (3.6-5.0) mmol/L Chloride (98-107) mmol/L Carbon Dioxide (22-30) mmol/L BUN (9-20) mg/dL Creatinine (0.8-1.3) mg/dL Glucose (75-100) mg/dL Calcium (8.4-10.2) mg/dL Alkaline Phosphatase (35-129) units/L Total Creatine Kinase (55-170) units/L Troponin T (0.00-0.029) ng/mL Total Protein (6.3-8.2) g/dL Albumin (3.9-5) g/dL LDL Cholesterol Direct (50-130) mg/dL HDL Cholesterol (40-59) mg/dL Urine WBC (Auto) (0.0-6.0) /HPF Urine Creatinine 139.3 H (0.1-20.0) mg/dL Urine Total Protein 328 H (5-11.8) mg/dL Assessment and Plan Cultures: Blood cultures pending Assessment: 79 years old male with history of hypertension, diabetes mellitus, chronic kidney disease, previous CVA, chronic leg lymphedema, [facility] resident, known to our service due to previous ESBL E. coli bacteremia from UTI on 03/02/2020, admitted on due to 24 hours history of generalized weakness and confusion associated with subjective fever: #Severe sepsis with septic shock: Present on admission, patient currently on 3 pressors and leukocytosis of 32,000. Source likely persistent UTI versus other possibilities ? PICC line infection ? Aspiration pneumonia #Recent ESBL E. coli bacteremia patient was discharged on ertapenem 1 g IV daily for 14 days end date supposed to be 03/20/2020 #Acute encephalopathy: Likely secondary to sepsis/uremia #Acute on chronic kidney failure #Bilateral leg lymphedema with chronic skin changes Recommendations: -Follow-up blood cultures -Start meropenem and vancomycin renally dose -Wound care consultation -Consider removal of PICC line if blood cx positive Very poor prognosis Dr. Get dorantes this weekend Will follow. Ivette Zamudio MD Infectious Diseases [employer] [facility] ([facility]) M [phone] O [phone]
[2020-03-17] MEDS: methylPREDNISolone Sod Succinate 40 MG/1 ML INJ IV SCH ×3 (15:00→23:38)
[2020-03-17] MEDS ORDERED: SODIUM BICARBONATE 325 MG TAB FEEDTUBE PRN (17:12)
[2020-03-17] MEDS ORDERED: LIPASE 10,500/PROTEASE 25,000/AMYLASE 43,750 (UNITS) DR CAP FEEDTUBE PRN (17:12)
[2020-03-17] MEDS ORDERED: SIMPLE SYRUP 15 ML FEEDTUBE PRN ×2 (17:12)
[2020-03-17] MEDS ORDERED: SODIUM CHLORIDE 0.9% 1000 ML 1,000 ML ONE (17:41)
[2020-03-17] MEDS: SODIUM BICARBONATE 150 MEQ in DEXTROSE 5% IN WATER 1,000 ML IV SCH (18:05)
--- NOTE | 2020-03-17 18:22 | XRay Report ---
CHEST 1 VIEW INDICATION: aspiration COMPARISON: One day prior. FINDINGS: Support devices: None Heart: Stable. Lungs/Pleura: Considerable pleural parenchymal disease in the left mid and lower lung is unchanged an d could well be chronic, primarily to considerable pleural thickening. Right lung remains clear of ac [place] disease. IMPRESSION: 1. No significant change. Signer Name: Emir Jarquin MD Signed: 03/17/2020 6:18 PM Workstation Name: [id number]
--- NOTE | 2020-03-17 18:23 | XRay Report ---
ABDOMEN 1 VIEW(S) 03/17/2020 5:06 PM INDICATION: NGT position. COMPARISON: Prior chest radiograph dated 03/17/2020 FINDINGS: The tip of the nasogastric tube is not in appropriate position and projects over the right hemithorax at the level the diaphragm.. Retraction and replacement is recommended. Opacity in the left lung bas e is similar to prior exam. Signer Name: Samuel Mcclendon MD Signed: 03/17/2020 6:18 PM Workstation Name: [id number]
[2020-03-17] MEDS ORDERED: FAMOTIDINE 20 MG TAB PO SCH (22:00)
[2020-03-18] MEDS: NORepinephrine 8 MG in SODIUM CHLORIDE 0.9% 250ML 242 ML IV SCH ×2 (01:01→04:44)
[2020-03-18] MEDS ORDERED: SODIUM CHLORIDE 0.9% 500 ML 500 ML ONE (04:26)
[2020-03-18] MEDS ORDERED: SODIUM CHLORIDE 0.9% 500 ML 500 ML IV ONE (04:28)
[2020-03-18] MEDS: EPINEPHrine 1 MG/1 ML 8 MG in SODIUM CHLORIDE 0.9% 250ML 242 ML IV SCH ×2 (04:44→22:32)
[2020-03-18 05:09] LABS: ABG Base Excess -12.8 mmol/L (-2.0-3.0); ABG HCO3 13.7 mmol/L (20.0-26.0); ABG Methemoglobin 0.5 % (0.0-1.5); ABG Oxygen Saturation 96.6 % (95.0-99.0); ABG PCO2 33.5 mm Hg; ABG PH 7.23 pH Units (7.350-7.450); ABG PO2 91.6 mm Hg (80.0-90.0)
[2020-03-18 05:17] LABS: Hematocrit 24.7 % (35.5-45.6); Hemoglobin 7.9 gm/dl (11.8-15.2); Mean Corpuscular HGB Conc 32 % (32-34); Mean Corpuscular Volume 96 fl (84-94); Platelet Count 228 K/mm3 (140-440); Red Blood Count 2.56 M/mm3 (3.65-5.03); Red Cell Distribution Width 18.2 % (13.2-15.2)
[2020-03-18 05:24] LABS: Calcium 6.7 mg/dL (8.4-10.2)
[2020-03-18] MEDS ORDERED: MAGNESIUM SULFATE 2 GM/50 ML BAG IV ONE ×4 (07:00→11:00)
[2020-03-18] MEDS ORDERED: POTASSIUM CHLORIDE 10 MEQ 10 MEQ/100 ML BAG IV ONE ×3 (07:41→10:55)
[2020-03-18] MEDS ORDERED: methylPREDNISolone Sod Succinate 40 MG/1 ML INJ ONE ×3 (07:42→23:11)
[2020-03-18] MEDS ORDERED: FAMOTIDINE 20 MG/2 ML INJ IV ONE (07:42)
[2020-03-18] MEDS ORDERED: HEPARIN 5,000 UNIT/1 ML VIAL ONE ×2 (07:42→22:49)
[2020-03-18] MEDS: methylPREDNISolone Sod Succinate 40 MG/1 ML INJ IV SCH ×3 (07:58→23:14)
[2020-03-18] MEDS: POTASSIUM CHLORIDE 10 MEQ 10 MEQ/100 ML BAG IV SCH ×5 (07:58→14:53)
[2020-03-18] MEDS ORDERED: VANCOMYCIN 1,750 MG in SODIUM CHLORIDE 0.9% 500 ML 500 ML IV ONE (08:00)
[2020-03-18] MEDS: VASOPRESSIN 20 UNIT in SODIUM CHLORIDE 0.9% 100 ML IV SCH (08:42)
[2020-03-18] MEDS: FAMOTIDINE 20 MG/2 ML INJ IV SCH (10:31)
[2020-03-18] MEDS: HEPARIN 5,000 UNIT/1 ML VIAL SUB-Q SCH ×2 (10:32→22:50)
[2020-03-18] MEDS: MEROPENEM/NS 1 GRAM/100 ML 1 GRAM/100 ML BAG IV SCH (10:32)
[2020-03-18] MEDS ORDERED: MAGNESIUM SULFATE 2 GM in SODIUM CHLORIDE 0.9% 50 ML IV ONE (10:35)
--- NOTE | 2020-03-18 10:38 | Progress Note ---
Assessment and Plan Assessment and plan: Patient is a 79-year-old male with a past medical history of encephalopathy, hypertension, generalized weakness, diabetes type 2, chronic lipidemia, DVT, respiratory failure with hypoxia, CVA, and CKD presents from [facility] with complaint of sepsis with hypotension, alteration mental status, and her labs collected yesterday that resulted today showing a WBC count of 36. Of note patient was recently discharged from the hospital with ertapenem 1 g IV daily ESBL E. coli bacteremia with started on March 11 with plan in date March 21 via PICC line Patient unfortunately continues to worsen despite antibiotic treatment is nonverbal not able to follow any commands and now experiencing multiorgan failure. half-way vital signs BP of 66/36, heart rate 62, respiratory rate 16, blood glucose 230, and patient presents on 3 L of nasal cannula oxygen satting 98% Patient had a negative Covid test during admission here March 02. 03/17 Patient also found to have acute kidney injury with acute tubular necrosis, toxic metabolic encephalopathy, metabolic acidosis and hypothermia. The patient is critically ill with a poor prognosis, sepsis protocol was initiated with an ICU admission. Patient was seen by it specialist pressors were increased with also bicarb drip started. Unfortunately bicarb drip had to be held due to PICC line compatibility. A new PICC line has been inserted this morning. Admitting physician did speak with the son and discussed prognosis. I did also call the son this morning who informs me that the brother who is physician is coming into town and will give us further recommendation on arrival. Patient has been started on a third pressor which is epinephrine at this time. To my examination awaiting nephrology evaluation. We will proceed with giving clint tional 2 L of fluids and also obtain a stat echocardiogram to see what patient's cardiac level is. Based on ejection fraction patient may benefit from dobutamine. Will place BiPAP on standby and if need be and family does not opposed to continued full code we will proceed with likely intubation so the patient can be adequately volume resuscitated. -Continue empiric antibiotic coverage. ID consultation. Critical care assistance and input noted. Fluid Resuscitation As Noted above Continue Diet. Change IV access for triple-lumen PICC line. Will follow cultures. We will also obtain wound care consultation. 03/18: Continue current management, may need dialysis but not a candidate for HD due to 3 pressors. NO Diarrhea at this time. If not improving respiratory lopez may need Intubation. Septic shock, Severe sepsis, Bacteremia Acute renal failure likely due to ischemic ATN Acute toxic metabolic encephalopathy Rule out COVID-19 Hypothermia Metabolic acidosis Sepsis The high probability of a clinically significant, sudden or life threatening deterioration of the [multiple organ] system(s) required my full and direct attention, intervention and personal management. The aggregate critical care time was [55 minutes] minutes. This time is in addition to time spent performing reported procedures but includes the following: [X] Data Review and interpretation [X] Patient assessment and monitoring of vital signs [X] Documentation [X] Medication orders and management History Interval history: Patient seen and examined remains critically ill NOW ON BIPAP DUE TO RESPIRATORY DISTRESS OVERNIGHT Hospitalist Physical - Physical exam Narrative exam: VITAL SIGNS: Reviewed. GENERAL: The patient critically ill, vital signs as documented. Morbidly obese patient is in none responsive although opens his eyes intermittently. Does not follow any commands, ON BIPAP HEAD: No signs of head trauma. EYES: Pupils are equal. EARS: Unable to examine this patient following any commands MOUTH: Oropharynx is normal otherwise dry. NECK: No adenopathy, no JVD. CHEST: Chest with dminished breath sounds bilaterally. No wheezes, rales, or rhonchi. CARDIAC: Regular rate and rhythm. S1 and S2, without murmurs, gallops, or rubs. VASCULAR: chronic Edema. Peripheral pulses normal and equal in all extremities. ABDOMEN: Soft, non tender and non distended. No rebound or guarding, and no masses palpated. Bowel Sounds normal. MUSCULOSKELETAL: chronic venous changes bilateral lower ext NEUROLOGIC EXAM: Nonresponsive not following commands opens eyes otherwise PSYCHIATRIC: Unable to examine SKIN: Multiple excoriations multiple pressure ulcers, detail exam as documented in skin assessment - Constitutional Vitals: Temp Pulse Resp BP Pulse Ox 98.1 F 86 23 134/66 100 03/17/20 16:34 03/18/20 08:35 03/18/20 08:35 03/18/20 08:35 03/18/20 08:35 General appearance: Present: severe distress HEART Score - HEART Score Troponin: Troponin T 0.047 ng/mL (0.00-0.029) H D 03/16/20 22:25 Results - Labs CBC & Chem 7: 03/19/20 05:10 03/19/20 05:10 Labs: Laboratory Last Values WBC 32.0 K/mm3 (4.5-11.0) H 03/18/20 04:40 RBC 2.56 M/mm3 (3.65-5.03) L 03/18/20 04:40 Hgb 7.9 gm/dl (11.8-15.2) L 03/18/20 04:40 Hct 24.7 % (35.5-45.6) L 03/18/20 04:40 MCV 96 fl (84-94) H 03/18/20 04:40 MCH 31 pg (28-32) 03/18/20 04:40 MCHC 32 % (32-34) 03/18/20 04:40 RDW 18.2 % (13.2-15.2) H 03/18/20 04:40 Plt Count 228 K/mm3 (140-440) 03/18/20 04:40 Add Manual Diff Complete 03/17/20 11:13 Total Counted 100 03/17/20 11:13 Seg Neutrophils % Search Developer 03/17/20 11:13 Seg Neuts % (Manual) 88.0 % (40.0-70.0) H 03/17/20 11:13 Band Neutrophils % 6.0 % 03/17/20 11:13 Lymphocytes % (Manual) 1.0 % (13.4-35.0) L 03/17/20 11:13 Reactive Lymphs % (Man) 0 % 03/17/20 11:13 Monocytes % (Manual) 2.0 % (0.0-7.3) 03/17/20 11:13 Eosinophils % (Manual) 0 % (0.0-4.3) 03/17/20 11:13 Basophils % (Manual) 0 % (0.0-1.8) 03/17/20 11:13 Metamyelocytes % 3.0 % 03/17/20 11:13 Myelocytes % 0 % 03/17/20 11:13 Promyelocytes % 0 % 03/17/20 11:13 Blast Cells % 0 % 03/17/20 11:13 Nucleated RBC % 13.0 % (0.0-0.9) H 03/17/20 11:13 Seg Neutrophils # Man 30.3 K/mm3 (1.8-7.7) H 03/17/20 11:13 Band Neutrophils # 2.1 K/mm3 03/17/20 11:13 Lymphocytes # (Manual) 0.3 K/mm3 (1.2-5.4) L 03/17/20 11:13 Abs React Lymphs (Man) 0.0 K/mm3 03/17/20 11:13 Monocytes # (Manual) 0.7 K/mm3 (0.0-0.8) 03/17/20 11:13 Eosinophils # (Manual) 0.0 K/mm3 (0.0-0.4) 03/17/20 11:13 Basophils # (Manual) 0.0 K/mm3 (0.0-0.1) 03/17/20 11:13 Metamyelocytes # 1.0 K/mm3 03/17/20 11:13 Myelocytes # 0.0 K/mm3 03/17/20 11:13 Promyelocytes # 0.0 K/mm3 03/17/20 11:13 Blast Cells # 0.0 K/mm3 03/17/20 11:13 Pathologist Review 03/16/20 14:22 WBC Morphology Not Reportable 03/17/20 11:13 Hypersegmented Neuts Not Reportable 03/17/20 11:13 Hyposegmented Neuts Not Reportable 03/17/20 11:13 Hypogranular Neuts Not Reportable 03/17/20 11:13 Smudge Cells Not Reportable 03/17/20 11:13 Toxic Granulation Not Reportable 03/17/20 11:13 Toxic Vacuolation Not Reportable 03/17/20 11:13 Dohle Bodies Not Reportable 03/17/20 11:13 Pelger-Huet Anomaly Not Reportable 03/17/20 11:13 Santiago Rods Not Reportable 03/17/20 11:13 Platelet Estimate Consistent w auto 03/17/20 11:13 Clumped Platelets Rare 03/17/20 11:13 Plt Clumps, EDTA Not Reportable 03/17/20 11:13 Large Platelets Not Reportable 03/17/20 11:13 Giant Platelets Not Reportable 03/17/20 11:13 Platelet Satelliting Not Reportable 03/17/20 11:13 Plt Morphology Comment Not Reportable 03/17/20 11:13 RBC Morphology Not Reportable 03/17/20 11:13 Dimorphic RBCs Not Reportable 03/17/20 11:13 Polychromasia Not Reportable 03/17/20 11:13 Hypochromasia Not Reportable 03/17/20 11:13 Poikilocytosis Not Reportable 03/17/20 11:13 Anisocytosis 2+ 03/17/20 11:13 Microcytosis Few 03/17/20 11:13 Macrocytosis 1+ 03/17/20 11:13 Spherocytes Not Reportable 03/17/20 11:13 Pappenheimer Bodies Not Reportable 03/17/20 11:13 Sickle Cells Not Reportable 03/17/20 11:13 Target Cells Not Reportable 03/17/20 11:13 Tear Drop Cells Not Reportable 03/17/20 11:13 Ovalocytes Not Reportable 03/17/20 11:13 Helmet Cells Not Reportable 03/17/20 11:13 [place] Bodies Not Reportable 03/17/20 11:13 [place] Rings Not Reportable 03/17/20 11:13 Luis Alfredo Cells Not Reportable 03/17/20 11:13 Bite Cells Not Reportable 03/17/20 11:13 Crenated Cell Not Reportable 03/17/20 11:13 Elliptocytes Not Reportable 03/17/20 11:13 Acanthocytes (Spur) Not Reportable 03/17/20 11:13 Rouleaux Not Reportable 03/17/20 11:13 Hemoglobin C Crystals Not Reportable 03/17/20 11:13 Schistocytes Not Reportable 03/17/20 11:13 Malaria parasites Not Reportable 03/17/20 11:13 Isauro Bodies Not Reportable 03/17/20 11:13 Hem Pathologist Commnt No 03/17/20 11:13 PT 17.2 Sec. (12.2-14.9) H 03/16/20 14:27 INR 1.37 (0.87-1.13) H 03/16/20 14:27 APTT 51.3 Sec. (24.2-36.6) H 03/16/20 14:27 ABG pH 7.230 pH Units (7.350-7.450) L 03/18/20 04:48 ABG pCO2 33.5 mm Hg 03/18/20 04:48 ABG pO2 91.6 mm Hg (80.0-90.0) H 03/18/20 04:48 ABG HCO3 13.7 mmol/L (20.0-26.0) L 03/18/20 04:48 ABG O2 Saturation 96.6 % (95.0-99.0) 03/18/20 04:48 ABG O2 Content 12.5 (0.0-44) 03/18/20 04:48 ABG Base Excess -12.8 mmol/L (-2.0-3.0) L 03/18/20 04:48 ABG Hemoglobin 9.2 gm/dl (14.0-18.0) L 03/18/20 04:48 ABG Carboxyhemoglobin 1.3 % (0.0-5.0) 03/18/20 04:48 ABG Methemoglobin 0.5 % (0.0-1.5) 03/18/20 04:48 Oxyhemoglobin 94.8 % (95.0-99.0) L 03/18/20 04:48 FiO2 30 % 03/18/20 04:48 Sodium 145 mmol/L (137-145) 03/18/20 04:40 Potassium 2.7 mmol/L (3.6-5.0) L* 03/18/20 04:40 Chloride 111.8 mmol/L (98-107) H 03/18/20 04:40 Carbon Dioxide 12 mmol/L (22-30) L 03/18/20 04:40 Anion Gap 24 mmol/L 03/18/20 04:40 BUN 56 mg/dL (9-20) H 03/18/20 04:40 Creatinine 4.6 mg/dL (0.8-1.3) H 03/18/20 04:40 Estimated GFR 15 ml/min 03/18/20 04:40 BUN/Creatinine Ratio 12 % 03/18/20 04:40 Glucose 347 mg/dL (75-100) H 03/18/20 04:40 Lactic Acid 1.80 mmol/L (0.7-2.0) 03/16/20 Unknown Calcium 6.7 mg/dL (8.4-10.2) L 03/18/20 04:40 Phosphorus 5.40 mg/dL (2.5-4.5) H 03/18/20 04:40 Magnesium 1.40 mg/dL (1.7-2.3) L 03/18/20 04:40 Total Bilirubin 0.20 mg/dL (0.1-1.2) 03/16/20 14:22 AST 22 units/L (5-40) 03/16/20 14:22 ALT 8 units/L (7-56) 03/16/20 14:22 Alkaline Phosphatase 224 units/L (35-129) H 03/16/20 14:22 Total Creatine Kinase 373 units/L (55-170) H 03/17/20 11:13 Troponin T 0.047 ng/mL (0.00-0.029) H D 03/16/20 22:25 Total Protein 5.4 g/dL (6.3-8.2) L 03/16/20 14:22 Albumin 1.9 g/dL (3.9-5) L 03/16/20 14:22 Albumin/Globulin Ratio 0.5 % 03/16/20 14:22 Triglycerides 107 mg/dL (2-149) 03/16/20 14:23 Cholesterol 95 mg/dL (50-199) 03/16/20 14:23 LDL Cholesterol Direct 35 mg/dL (50-130) L 03/16/20 14:23 HDL Cholesterol 37 mg/dL (40-59) L 03/16/20 14:23 Cholesterol/HDL Ratio 2.56 % 03/16/20 14:23 Procalcitonin 9.59 ng/mL (<0.15) 03/17/20 18:53 Urine Color Shruthi (Yellow) 03/17/20 11:40 Urine Turbidity Turbid (Clear) 03/17/20 11:40 Urine pH 5.0 (5.0-7.0) 03/17/20 11:40 Ur Specific [place] 1.015 (1.003-1.030) 03/17/20 11:40 Urine Protein 100 mg/dl mg/dL (Negative) 03/17/20 11:40 Urine Glucose (UA) 50 mg/dL (Negative) 03/17/20 11:40 Urine Ketones Neg mg/dL (Negative) 03/17/20 11:40 Urine Blood Sm (Negative) 03/17/20 11:40 Urine Nitrite Neg (Negative) 03/17/20 11:40 Urine Bilirubin Neg (Negative) 03/17/20 11:40 Urine Urobilinogen 2.0 mg/dL (<2.0) 03/17/20 11:40 Ur Leukocyte Esterase Lg (Negative) 03/17/20 11:40 Urine WBC (Auto) > 182.0 /HPF (0.0-6.0) H 03/17/20 11:40 Urine RBC (Auto) 26.0 /HPF (0.0-6.0) 03/17/20 11:40 U Epithel Cells (Auto) 2.0 /HPF (0-13.0) 03/16/20 21:15 Urine Bacteria (Auto) 2+ /HPF (Negative) 03/17/20 11:40 Urine WBC Clumps 3+ /HPF 03/17/20 11:40 Urine Mucus 1+ /HPF 03/17/20 11:40 Urine Yeast (Budding) 2+ /HPF 03/16/20 21:15 Urine Creatinine 139.3 mg/dL (0.1-20.0) H 03/17/20 Unknown Protein/Creatinin Ratio 2.35 03/17/20 Unknown Urine Sodium 53 mmol/L 03/17/20 Unknown Urine Total Protein 328 mg/dL (5-11.8) H 03/17/20 Unknown Random Vancomycin 8.4 ug/mL (0-40.0) 03/18/20 04:40 Coronavirus (PCR) Negative (Negative) 03/17/20 09:03 Microbiology: Microbiology 03/16/20 14:15 Peripheral/Venous Blood Culture - Preliminary NO GROWTH AFTER 24 HOURS 03/16/20 14:15 Peripheral/Venous Blood Culture - Preliminary NO GROWTH AFTER 24 HOURS [facility]/IV: IV Catheter Type [right wrist] Peripheral IV IV Catheter Type [Right Upper PICC Line arm] IV Catheter Type [Left Upper PICC Line arm] Active Medications - Current Medications Current Medications: Generic Name Dose Route Start Last Admin Trade Name Freq PRN Reason Stop Dose Admin Acetaminophen 650 mg 03/16/20 17:30 Tylenol PO Q6H PRN Pain, Mild (1-3) Albuterol 2.5 mg 03/16/20 17:00 Proventil IH Q3HRT PRN Shortness Of Breath Lipase/Protease/Amylase 1 each 03/17/20 17:[address] 10,500 Unit FEEDTUBE PRN PRN For Clogged Feeding Tube Famotidine 20 mg 03/18/20 10:00 03/18/20 10:31 Pepcid IV 20 mg DAILY IDRIS Administration Heparin Sodium (Porcine) 5,000 unit 03/16/20 22:00 03/18/20 10:32 Heparin SUB-Q 5,000 unit Q12HR IDRIS Administration Hydromorphone HCl 0.25 mg 03/16/20 17:30 Dilaudid IV Q4H PRN Pain, Moderate (4-6) Vasopressin 20 unit/ Sodium 101 mls @ 9.09 mls/hr 03/16/20 20:00 03/18/20 08:42 Chloride IV 0.03 units/min TITR IDRIS 9.09 mls/hr Administration Protocol 0.03 UNITS/MIN Norepinephrine 8 mg/ Sodium 250 mls @ 3.75 mls/hr 03/16/20 23:00 03/18/20 04:44 Chloride IV 30 mcg/min TITR IDIRS 56.25 mls/hr Administration Protocol 2 MCG/MIN Dextrose 1,000 mls @ 125 mls/hr 03/16/20 20:41 D5w IV DIRECT IDRIS Epinephrine 8 mg/ Sodium 250 mls @ 3.75 mls/hr 03/17/20 04:00 03/18/20 04:44 Chloride IV 10 mcg/min TITR IDRIS 18.75 mls/hr Administration Protocol 2 MCG/MIN MEROPENEM/NS 1 GRAM/100 ML 1 gram in 100 mls @ 100 mls/hr 03/17/20 12:00 03/18/20 10:32 Merrem/Ns 1 Gram/100 Ml IV 100 mls/hr Q24HR IDRIS Administration Protocol Sodium Bicarbonate 150 meq/ 1,150 mls @ 75 mls/hr 03/17/20 18:00 03/17/20 18:05 Dextrose IV 03/20/20 09:19 75 mls/hr DIRECT IDRIS Administration Potassium Chloride 10 meq in 100 mls @ 100 mls/hr 03/18/20 07:00 03/18/20 10:31 Kcl 10meq/100ml IV 03/18/20 10:59 100 mls/hr Q1H IDRIS Administration Potassium Chloride 10 meq in 100 mls @ 100 mls/hr 03/18/20 11:00 Kcl 10meq/100ml IV 03/18/20 14:59 Q1H IDRIS Magnesium Sulfate 1 gm/ Sodium 52 mls @ 52 mls/hr 03/18/20 11:00 Chloride IV 03/18/20 11:59 ONCE ONE Magnesium Sulfate 2 gm/ Sodium 54 mls @ 52 mls/hr 03/18/20 10:35 Chloride IV 03/18/20 11:37 ONCE ONE Insulin Human Lispro 0 unit 03/18/20 11:00 Humalog SUB-Q Q6H IDRIS Protocol Methylprednisolone Sodium Succinate 40 mg 03/16/20 22:00 03/18/20 07:58 Solu-Medrol IV 40 mg Q8HR IDRIS Administration Simple Syrup 15 ml 03/17/20 17:12 Simple Syrup FEEDTUBE PRN PRN Hypoglycemia Simple Syrup 30 ml 03/17/20 17:12 Simple Syrup FEEDTUBE PRN PRN Hypoglycemia Sodium Bicarbonate 325 mg 03/17/20 17:12 Sodium Bicarbonate FEEDTUBE PRN PRN For Clogged Feeding Tube Sodium Chloride 10 ml 03/16/20 22:00 03/17/20 23:38 Sodium Chloride Flush Syringe 10 Ml IV 10 ml BID IDRIS Administration Sodium Chloride 10 ml 03/16/20 17:00 Sodium Chloride Flush Syringe 10 Ml IV PRN PRN LINE FLUSH Nutrition/Malnutrition Assess - Dietary Evaluation Nutrition/Malnutrition Findings: Nutrition Notes Start: 03/18/20 09:15 Freq: Status: Active Protocol: Document 03/18/20 09:15 LM (Rec: 03/18/20 09:36 LM [id number]) Nutrition Notes Need for Assessment generated from: MD Order Initial or Follow up Assessment Current Diagnosis Acute Kidney Injury,CKD(stage I-IV),Diabetes,Hypertension Other Pertinent Diagnosis Septic shock, suspected COVID- 19, debility, hypothermia, debility Current Diet Nepro at 20ml/hr Labs/Tests K 2.7 Phos 5.4 Mg 1.4 BG 347 BUN 56 Cr 4.6 Pertinent Medications KCl at 100ml/hr Solumedrol Norepinepherine Epinepherine Vasopressin Height 5 ft 11 in Weight 121 kg Alexander Body Weight (kg) 78.18 BMI 37.2 Weight Status Obese Subjective/Other Information MD consult for TF. MD ordered Nepro at 20ml/hr. Pt is on multiple pressors and in ED. Pt has dry and flakey skin on lower back and buttocks. Pt is not on the vent. Burn Absent Trauma Absent Current % PO Negligible Minimum of two criteria No physical signs of malnutrition #1 Nutrition Diagnosis Inadequate oral intake Etiology Septic shock, chroninc illness As Evidenced by Signs and Symptoms pt requiring TF Is patient on ventilator? No Is Patient Ambulatory and/or Out of Bed No REE-([facility]-confined to bed) 2330.880 Kcal/Kg value to use for calculation 15 Approximate Energy Requirements Using 1815 kcal/Kg Calculation Used for Recommendations Kcal/kg Additional Notes Protein: 80-120g/kg (0.8-1.2g/ kg using AdjBW 100kg) Fluid: 1ml/kcal or per MD Nutrition Intervention Change Diet Order: TF Nutrition Support: Nepro 1.8 at 40ml/hr Flush 170ml q4h Kcal 1,728 Protein (gm) 78 Fluid (mL) 698 Goal #1 TF tolerance Goal #2 Meet at least 80% of energy and protein needs Anticipated Discharge Needs: unable to determine at this time Follow-Up By: 03/20/20 Additional Comments F/U for TF tolerance, Kshonas
[2020-03-18] MEDS ORDERED: MAGNESIUM SULFATE 1 GM in SODIUM CHLORIDE 0.9% 50 ML IV ONE (11:00)
--- NOTE | 2020-03-18 11:56 | Progress Note ---
Assessment and Plan Septic shock Toxic metabolic encephalopathy Acute kidney injury (ALEJANDRO) with acute tubular necrosis (ATN) Sacral decubitus ulcer h/o VTE Hypothermia Continue Sepsis protocol -CBC, CMP, IV fluid resuscitation therapy, IV antibiotic therapy, serial lactic acid level, -IV pressor support to maintain mean arterial blood pressure greater than or equal to 65, blood cultures. Wean vasopressor support for MAP >65 Continue Cunningham catheter for accurate Is and Os- minimal urine output ABG assessed. 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 Will give another 500ml of albumin VTE prophylaxis Accuchecks q4, avoid hypoglycemia. Replace NGT tube, repeat KUB for tube placment prior to initiation of tube feedings CONDITION: CRITICAL PROGNOSIS: GUARDED MEDICAL DECISON MAKING- HIGH COMPLEXITY CODE STATUS: FULL CODE The high probability of a clinically significant, sudden or life threatening deterioration of the [Respiratory, cardiovascular & neurological] system(s) required my full and direct attention, intervention and personal management. The aggregate critical care time was [35 ] minutes without overlap. Time includes spent on [x] Data Review and interpretation [x] Patient assessment and monitoring of vital signs [x] Documentation [x] Medication orders and management Subjective Date of service: 03/18/20 Principal diagnosis: Acute hypoxemic respiratory failure; Septic shock; Ac. encephalopathy; ALEJANDRO Interval history: Patient is seen today for: Acute hypoxemic respiratory failure; Septic shock; Acute Toxic metabolic encephalopathy; ALEJANDRO; PUI COVID-19; Sacral decubitus ulcer; h/o VTE; Hypothermia; Obesity; Adult FTT Seen and examined at bedside; 24hour events reviewed; nursing and respiratory care staff consulted; no adverse overnight events reported to me; resting in bed; AMS is persistent; on vasopressin, levophed & Epinephrine at max doses; no emesis or overt aspiration on BIPAP 16/6, FIO2 30% ABG 7.196/37/64/141. Objective Vital Signs - 12hr 03/18/20 03/18/20 03/18/20 00:00 00:13 00:15 Pulse Rate 86 90 85 Respiratory 21 20 22 Rate Blood Pressure 143/56 124/61 133/53 O2 Sat by Pulse 100 99 99 Oximetry 03/18/20 03/18/20 03/18/20 00:30 00:45 01:00 Pulse Rate 87 83 83 Respiratory 20 23 21 Rate Blood Pressure 128/48 139/63 139/55 O2 Sat by Pulse 100 100 100 Oximetry 03/18/20 03/18/20 03/18/20 01:15 01:31 01:45 Pulse Rate 87 84 84 Respiratory 21 18 22 Rate Blood Pressure 139/61 153/52 143/63 O2 Sat by Pulse 100 100 100 Oximetry 03/18/20 03/18/20 03/18/20 02:00 02:15 02:30 Pulse Rate 86 87 82 Respiratory 21 17 21 Rate Blood Pressure 155/62 140/60 134/61 O2 Sat by Pulse 100 98 100 Oximetry 03/18/20 03/18/20 03/18/20 02:45 03:00 03:15 Pulse Rate 84 86 85 Respiratory 20 18 20 Rate Blood Pressure 148/61 152/64 137/47 O2 Sat by Pulse 100 100 100 Oximetry 03/18/20 03/18/20 03/18/20 03:30 03:45 04:00 Pulse Rate 82 86 85 Respiratory 21 21 19 Rate Blood Pressure 145/46 126/51 127/56 O2 Sat by Pulse 100 100 100 Oximetry 03/18/20 03/18/20 03/18/20 04:15 04:30 04:45 Pulse Rate 80 85 83 Respiratory 21 20 16 Rate Blood Pressure 132/52 133/63 126/59 O2 Sat by Pulse 100 100 100 Oximetry 03/18/20 03/18/20 03/18/20 04:50 05:00 05:15 Pulse Rate 81 85 82 Respiratory 21 20 21 Rate Blood Pressure 133/63 138/59 126/57 O2 Sat by Pulse 100 100 100 Oximetry 03/18/20 03/18/20 03/18/20 05:30 05:45 06:00 Pulse Rate 83 86 82 Respiratory 20 23 20 Rate Blood Pressure 130/48 130/48 125/54 O2 Sat by Pulse 99 100 99 Oximetry 03/18/20 03/18/20 03/18/20 06:15 06:30 06:45 Pulse Rate 80 85 82 Respiratory 20 20 20 Rate Blood Pressure 126/63 126/67 126/62 O2 Sat by Pulse 100 100 100 Oximetry 03/18/20 08:35 Pulse Rate 86 Respiratory 23 Rate Blood Pressure 134/66 O2 Sat by Pulse 100 Oximetry Constitutional: appears uncomfortable, other (elderly obese male with increased respiratory effort at rest on BIPAP FFM ) Eyes: non-icteric ENT: oropharynx dry, other (right nares NGT) Neck: supple, no JVD, other (large neck circumference) Effort: mildly labored Ascultation: Bilateral: clear, diminished breath sounds, rhonchi (scant RLL) Percussion: Bilateral: not dull Cardiovascular: other (S1,S2, Tachycardia, hypotension on Vasopressors) Gastrointestinal: normoactive bowel sounds, soft, non-tender, non-distended (protuberant) Integumentary: rash (Generalized skin flaking/with superficial skin sloughing without erythema or warmth on chest wall), decubitus ulcer (see RN/WCN notes for details) Extremities: pulses normal, cool, other (LUExt midline, RUext PICC line) Neurologic: pupils equal and round, unable to assess Psychiatric: other (unable to assess re: AMS) CBC and BMP: 03/19/20 05:10 03/19/20 10:00 ABG, PT/INR, D-dimer: ABG ABG pH 7.230 pH Units (7.350-7.450) L 03/18/20 04:48 ABG pCO2 33.5 mm Hg 03/18/20 04:48 ABG pO2 91.6 mm Hg (80.0-90.0) H 03/18/20 04:48 ABG O2 Saturation 96.6 % (95.0-99.0) 03/18/20 04:48 PT/INR, D-dimer PT 17.2 Sec. (12.2-14.9) H 03/16/20 14:27 INR 1.37 (0.87-1.13) H 03/16/20 14:27 Abnormal lab findings: Abnormal Labs 03/16/20 03/16/20 03/16/20 14:22 14:22 14:23 WBC 32.2 H RBC 2.93 L Hgb 8.9 L Hct 28.2 L MCV 96 H MCHC RDW 18.1 H Seg Neuts % (Manual) 82.0 H Lymphocytes % (Manual) 10.0 L Nucleated RBC % 3.0 H Seg Neutrophils # Man 26.4 H Lymphocytes # (Manual) Monocytes # (Manual) 1.9 H PT INR APTT ABG pH ABG pO2 ABG HCO3 ABG Base Excess ABG Hemoglobin Oxyhemoglobin Potassium 3.3 L Chloride 108.9 H Carbon Dioxide 12 L BUN 59 H Creatinine 5.9 H Glucose 142 H Calcium 7.7 L Phosphorus Magnesium Alkaline Phosphatase 224 H Total Creatine Kinase Troponin T 0.033 H Total Protein 5.4 L Albumin 1.9 L LDL Cholesterol Direct 35 L HDL Cholesterol 37 L Urine WBC (Auto) Urine Creatinine Urine Total Protein 03/16/20 03/16/20 03/16/20 14:27 19:50 21:15 WBC RBC Hgb Hct MCV MCHC RDW Seg Neuts % (Manual) Lymphocytes % (Manual) Nucleated RBC % Seg Neutrophils # Man Lymphocytes # (Manual) Monocytes # (Manual) PT 17.2 H INR 1.37 H APTT 51.3 H ABG pH ABG pO2 ABG HCO3 ABG Base Excess ABG Hemoglobin Oxyhemoglobin Potassium Chloride Carbon Dioxide BUN Creatinine Glucose Calcium Phosphorus Magnesium Alkaline Phosphatase Total Creatine Kinase Troponin T 0.031 H Total Protein Albumin LDL Cholesterol Direct HDL Cholesterol Urine WBC (Auto) > 182.0 H Urine Creatinine Urine Total Protein 03/16/20 03/17/20 03/17/20 22:25 11:13 11:13 WBC 34.4 H RBC 2.60 L Hgb 7.8 L Hct 25.2 L MCV 97 H MCHC 31 L RDW 18.7 H Seg Neuts % (Manual) 88.0 H Lymphocytes % (Manual) 1.0 L Nucleated RBC % 13.0 H Seg Neutrophils # Man 30.3 H Lymphocytes # (Manual) 0.3 L Monocytes # (Manual) PT INR APTT ABG pH ABG pO2 ABG HCO3 ABG Base Excess ABG Hemoglobin Oxyhemoglobin Potassium 3.3 L Chloride 108.5 H Carbon Dioxide 16 L BUN 57 H Creatinine 5.5 H Glucose 325 H Calcium 7.0 L Phosphorus Magnesium Alkaline Phosphatase Total Creatine Kinase Troponin T 0.047 H D Total Protein Albumin LDL Cholesterol Direct HDL Cholesterol Urine WBC (Auto) Urine Creatinine Urine Total Protein 03/17/20 03/17/20 03/17/20 11:13 11:40 Unknown WBC RBC Hgb Hct MCV MCHC RDW Seg Neuts % (Manual) Lymphocytes % (Manual) Nucleated RBC % Seg Neutrophils # Man Lymphocytes # (Manual) Monocytes # (Manual) PT INR APTT ABG pH 7.229 L ABG pO2 98.3 H ABG HCO3 14.6 L ABG Base Excess -12.0 L ABG Hemoglobin 8.9 L Oxyhemoglobin Potassium Chloride Carbon Dioxide BUN Creatinine Glucose Calcium Phosphorus Magnesium Alkaline Phosphatase Total Creatine Kinase 373 H Troponin T Total Protein Albumin LDL Cholesterol Direct HDL Cholesterol Urine WBC (Auto) > 182.0 H Urine Creatinine Urine Total Protein 03/17/20 03/18/20 03/18/20 Unknown 04:40 04:40 WBC 32.0 H RBC 2.56 L Hgb 7.9 L Hct 24.7 L MCV 96 H MCHC RDW 18.2 H Seg Neuts % (Manual) Lymphocytes % (Manual) Nucleated RBC % Seg Neutrophils # Man Lymphocytes # (Manual) Monocytes # (Manual) PT INR APTT ABG pH ABG pO2 ABG HCO3 ABG Base Excess ABG Hemoglobin Oxyhemoglobin Potassium 2.7 L* Chloride 111.8 H Carbon Dioxide 12 L BUN 56 H Creatinine 4.6 H Glucose 347 H Calcium 6.7 L Phosphorus 5.40 H Magnesium Alkaline Phosphatase Total Creatine Kinase Troponin T Total Protein Albumin LDL Cholesterol Direct HDL Cholesterol Urine WBC (Auto) Urine Creatinine 139.3 H Urine Total Protein 328 H 03/18/20 03/18/20 04:40 04:48 WBC RBC Hgb Hct MCV MCHC RDW Seg Neuts % (Manual) Lymphocytes % (Manual) Nucleated RBC % Seg Neutrophils # Man Lymphocytes # (Manual) Monocytes # (Manual) PT INR APTT ABG pH 7.230 L ABG pO2 91.6 H ABG HCO3 13.7 L ABG Base Excess -12.8 L ABG Hemoglobin 9.2 L Oxyhemoglobin 94.8 L Potassium Chloride Carbon Dioxide BUN Creatinine Glucose Calcium Phosphorus Magnesium 1.40 L Alkaline Phosphatase Total Creatine Kinase Troponin T Total Protein Albumin LDL Cholesterol Direct HDL Cholesterol Urine WBC (Auto) Urine Creatinine Urine Total Protein Chest x-ray: image reviewed Additional Studies: KUB reviewed- NGT courses to the right and is above the diaphragm Allied health notes reviewed: RT
--- NOTE | 2020-03-18 13:01 | Progress Note ---
Assessment and Plan Acute renal failure likely due to ischemic ATN Metabolic encphalopathy Metabolic acidosis Sepsis Hypokalemia Hypomagnesemia Hypoalbuminemia Anemia Continue bicarb drip, rate increased to 150 mls/hr On 3 pressors Cr slightly better No acute HD indication as of this moment Albumin 25% 100 mls q6H X 4 doses to boast up BP Has weldon urine lytes, protein ordered renally dose meds strict I&O daily weight Critical Care time: 36 minutes Dejuan Toledo MD [phone] Subjective Date of service: 03/18/20 Principal diagnosis: Acute hypoxemic respiratory failure; Septic shock; Ac. encephalopathy; ALEJANDRO Interval history: On bipap. On 3 pressors. Objective - Exam Narrative Exam: General appearance: Lethargic, on bipap EENT: ATNC, PERRL, mucous membranes dry Neck: Present: neck supple Respiratory: Decreased Breath Sounds Heart: tachycardia Gastrointestinal: Absent: tenderness, distended Integumentary: no rash, warm and dry Neurologic: lethargic Musculoskeletal: 2-3+ BLE edema Psychiatric: Lethargic - Vital Signs Vital signs: Vital Signs - 12hr 03/18/20 03/18/20 03/18/20 01:15 01:31 01:45 Pulse Rate 87 84 84 Respiratory 21 18 22 Rate Blood Pressure 139/61 153/52 143/63 O2 Sat by Pulse 100 100 100 Oximetry 03/18/20 03/18/20 03/18/20 02:00 02:15 02:30 Pulse Rate 86 87 82 Respiratory 21 17 21 Rate Blood Pressure 155/62 140/60 134/61 O2 Sat by Pulse 100 98 100 Oximetry 03/18/20 03/18/20 03/18/20 02:45 03:00 03:15 Pulse Rate 84 86 85 Respiratory 20 18 20 Rate Blood Pressure 148/61 152/64 137/47 O2 Sat by Pulse 100 100 100 Oximetry 03/18/20 03/18/20 03/18/20 03:30 03:45 04:00 Pulse Rate 82 86 85 Respiratory 21 21 19 Rate Blood Pressure 145/46 126/51 127/56 O2 Sat by Pulse 100 100 100 Oximetry 03/18/20 03/18/20 03/18/20 04:15 04:30 04:45 Pulse Rate 80 85 83 Respiratory 21 20 16 Rate Blood Pressure 132/52 133/63 126/59 O2 Sat by Pulse 100 100 100 Oximetry 03/18/20 03/18/20 03/18/20 04:50 05:00 05:15 Pulse Rate 81 85 82 Respiratory 21 20 21 Rate Blood Pressure 133/63 138/59 126/57 O2 Sat by Pulse 100 100 100 Oximetry 03/18/20 03/18/20 03/18/20 05:30 05:45 06:00 Pulse Rate 83 86 82 Respiratory 20 23 20 Rate Blood Pressure 130/48 130/48 125/54 O2 Sat by Pulse 99 100 99 Oximetry 03/18/20 03/18/20 03/18/20 06:15 06:30 06:45 Pulse Rate 80 85 82 Respiratory 20 20 20 Rate Blood Pressure 126/63 126/67 126/62 O2 Sat by Pulse 100 100 100 Oximetry 03/18/20 08:35 Pulse Rate 86 Respiratory 23 Rate Blood Pressure 134/66 O2 Sat by Pulse 100 Oximetry - Lab 03/18/20 04:40 03/18/20 13:32 Most recent lab results ABG pH 7.196 (7.320-7.450) L 03/18/20 12:14 ABG pCO2 33.5 mm Hg 03/18/20 04:48 ABG pO2 91.6 mm Hg (80.0-90.0) H 03/18/20 04:48 ABG HCO3 13.7 mmol/L (20.0-26.0) L 03/18/20 04:48 ABG O2 Saturation 96.6 % (95.0-99.0) 03/18/20 04:48 Calcium 6.7 mg/dL (8.4-10.2) L 03/18/20 04:40 Phosphorus 5.40 mg/dL (2.5-4.5) H 03/18/20 04:40 Magnesium 1.40 mg/dL (1.7-2.3) L 03/18/20 04:40 Urine Creatinine 139.3 mg/dL (0.1-20.0) H 03/17/20 Unknown Urine Sodium 53 mmol/L 03/17/20 Unknown Urine Total Protein 328 mg/dL (5-11.8) H 03/17/20 Unknown Medications & Allergies - Medications Allergies/Adverse Reactions: Allergies diclofenac [Diclofenac] Allergy (Verified 10/05/18 08:11) Rash Home Medications: Home Medications Medication Instructions Recorded Confirmed Last Taken Type Acetaminophen [Acetaminophen TAB] 650 mg PO Q4H PRN #1 tablet 02/28/17 03/02/20 Unknown Rx Aspirin [Aspirin BABY CHEW TAB] 81 mg PO DAILY #1 tab.chew 02/28/17 03/02/20 Unknown Rx Ferrous Sulfate [Feosol 325 MG tab] 325 mg PO QDAY #1 tablet 02/28/17 03/02/20 Unknown Rx Gabapentin 300 mg PO Q8HR #1 capsule 02/28/17 03/02/20 Unknown Rx Ondansetron [Zofran INJ] 4 mg IV Q8H PRN #1 vial 02/28/17 03/02/20 Unknown Rx amLODIPine 10 mg PO DAILY #1 tablet 02/28/17 03/02/20 Unknown Rx Ertapenem [INVanz] 1 gm IV QDAY vial 03/10/20 Unknown Rx Active Medications: Generic Name Dose Route Start Last Admin Trade Name Freq PRN Reason Stop Dose Admin Acetaminophen 650 mg 03/16/20 17:30 Tylenol PO Q6H PRN Pain, Mild (1-3) Albuterol 2.5 mg 03/16/20 17:00 Proventil IH Q3HRT PRN Shortness Of Breath Lipase/Protease/Amylase 1 each 03/17/20 17:12 Pancrescooby Granger 10,500 Unit FEEDTUBE PRN PRN For Clogged Feeding Tube Famotidine 20 mg 03/18/20 10:00 03/18/20 10:31 Pepcid IV 20 mg DAILY IDRIS Administration Heparin Sodium (Porcine) 5,000 unit 03/16/20 22:00 03/18/20 10:32 Heparin SUB-Q 5,000 unit Q12HR IDRIS Administration Hydromorphone HCl 0.25 mg 03/16/20 17:30 Dilaudid IV Q4H PRN Pain, Moderate (4-6) Vasopressin 20 unit/ Sodium 101 mls @ 9.09 mls/hr 03/16/20 20:00 03/18/20 08 :42 Chloride IV 0.03 units/min TITR IDRIS 9.09 mls/hr Administration Protocol 0.03 UNITS/MIN Norepinephrine 8 mg/ Sodium 250 mls @ 3.75 mls/hr 03/16/20 23:00 03/18/20 04:44 Chloride IV 30 mcg/min TITR IDRIS 56.25 mls/hr Administration Protocol 2 MCG/MIN Dextrose 1,000 mls @ 125 mls/hr 03/16/20 20:41 D5w IV DIRECT IDRIS Epinephrine 8 mg/ Sodium 250 mls @ 3.75 mls/hr 03/17/20 04:00 03/18/20 04:44 Chloride IV 10 mcg/min TITR IDRIS 18.75 mls/hr Administration Protocol 2 MCG/MIN MEROPENEM/NS 1 GRAM/100 ML 1 gram in 100 mls @ 100 mls/hr 03/17/20 12:00 03/18/20 10:32 Merrem/Ns 1 Gram/100 Ml IV 100 mls/hr Q24HR IDRIS Administration Protocol Sodium Bicarbonate 150 meq/ 1,150 mls @ 75 mls/hr 03/17/20 18:00 03/17/20 18:05 Dextrose IV 03/20/20 09:19 75 mls/hr DIRECT IDRIS Administration Potassium Chloride 10 meq in 100 mls @ 100 mls/hr 03/18/20 11:00 Kcl 10meq/100ml IV 03/18/20 14:59 Q1H [facility] Insulin Glargine 20 units 03/18/20 22:00 Lantus SUB-Q QHS IDRIS Insulin Human Lispro 0 unit 03/18/20 12:00 Humalog SUB-Q Q6HR [facility] Protocol Methylprednisolone Sodium Succinate 40 mg 03/16/20 22:00 03/18/20 07:58 Solu-Medrol IV 40 mg Q8HR IDRIS Administration Simple Syrup 15 ml 03/17/20 17:12 Simple Syrup FEEDTUBE PRN PRN Hypoglycemia Simple Syrup 30 ml 03/17/20 17:12 Simple Syrup FEEDTUBE PRN PRN Hypoglycemia Sodium Bicarbonate 325 mg 03/17/20 17:12 Sodium Bicarbonate FEEDTUBE PRN PRN For Clogged Feeding Tube Sodium Chloride 10 ml 03/16/20 22:00 03/18/20 11:07 Sodium Chloride Flush Syringe 10 Ml IV 10 ml BID IDRIS Administration Sodium Chloride 10 ml 03/16/20 17:00 Sodium Chloride Flush Syringe 10 Ml IV PRN PRN LINE FLUSH
[2020-03-18] MEDS ORDERED: ALBUMIN HUMAN 5% (25 GM/500 ML) INJ IV ONE (14:00)
--- NOTE | 2020-03-18 14:19 | XRay Report ---
ABDOMEN SINGLE VIEW INDICATION / CLINICAL INFORMATION: Tube placement. COMPARISON: None available. FINDINGS: Tip of NG tube is projecting within the right lung base consistent with endobronchial placement of th e tube. Tube will need to be completely removed. This report was called to the patient's nurse, Alisa, at 1314 hours. IMPRESSION: NG tube is within the right lower lobe bronchus. Signer Name: Siria Samaniego MD Signed: 03/18/2020 2:14 PM Workstation Name: [id number]
[2020-03-18] MEDS: INSULIN LISPRO 100 UNIT/ML VIAL 3 mL SUB-Q SCH ×2 (16:57→19:51)
[2020-03-18] MEDS: SODIUM BICARBONATE 650 MG TAB PO SCH (16:58)
--- NOTE | 2020-03-18 19:27 | XRay Report ---
ABDOMEN 1 VIEW INDICATION / CLINICAL INFORMATION: NG tube. COMPARISON: 03/18/2020 FINDINGS: TUBES / LINES: Nasogastric tube crosses the gastroesophageal junction with tip overlying the gastric bubble. Radiolucent marker is just beyond the gastroesophageal junction. Consider advancing 4 cm prio r to use. BOWEL GAS PATTERN: No significant abnormality. FREE AIR / EXTRALUMINAL GAS: None seen. ADDITIONAL FINDINGS: No significant additional findings. IMPRESSION: 1. Gastric tube with tip overlying the gastric bubble. Consider advancing 4 cm prior to use. Signer Name: Constantin García MD Signed: 03/18/2020 7:22 PM Workstation Name: [id number]
[2020-03-18 19:45] LABS: Calcium 7.8 mg/dL (8.4-10.2)
[2020-03-18] MEDS ORDERED: INSULIN LISPRO 100 UNIT/ML VIAL 3 mL SUB-Q ONE (19:46)
[2020-03-18] MEDS ORDERED: NORepinephrine/NS 4 MG-250 ML 4 MG/250 ML BAG IV ONE (21:57)
[2020-03-18] MEDS: INSULIN GLARGINE 100 UNITS/ML SUB-Q SCH (22:51)
[2020-03-18] MEDS: SODIUM BICARBONATE 150 MEQ in DEXTROSE 5% IN WATER 1,000 ML IV SCH (23:47)
[2020-03-19] MEDS: ALBUMIN HUMAN 25% (25 GM/100 ML) INJ IV SCH ×4 (01:25→13:31)
[2020-03-19] MEDS: INSULIN LISPRO 100 UNIT/ML VIAL 3 mL SUB-Q SCH ×4 (01:26→17:35)
[2020-03-19] MEDS: SODIUM BICARBONATE 650 MG TAB PO SCH ×6 (01:33→21:08)
[2020-03-19] MEDS: EPINEPHrine 1 MG/1 ML 8 MG in SODIUM CHLORIDE 0.9% 250ML 242 ML IV SCH (01:39)
[2020-03-19] MEDS: NORepinephrine 8 MG in SODIUM CHLORIDE 0.9% 250ML 242 ML IV SCH ×2 (04:26→21:07)
[2020-03-19 04:34] LABS: ABG Base Excess -7.6 mmol/L (-2.0-3.0); ABG HCO3 17.9 mmol/L (20.0-26.0); ABG Methemoglobin 0.5 % (0.0-1.5); ABG Oxygen Saturation 92.4 % (95.0-99.0); ABG PCO2 36.5 mm Hg; ABG PH 7.309 pH Units (7.350-7.450); ABG PO2 69.4 mm Hg (80.0-90.0)
[2020-03-19 06:06] LABS: Mean Corpuscular HGB Conc 30 % (32-34); Mean Corpuscular Volume 100 fl (84-94); Platelet Count 150 K/mm3 (140-440); Red Blood Count 3.61 M/mm3 (3.65-5.03); Red Cell Distribution Width 19.1 % (13.2-15.2)
[2020-03-19 06:15] LABS: Blood Urea Nitrogen TNR mg/dL (9-20)
[2020-03-19 06:16] LABS: BUN/Creatinine Ratio TNR; Calcium TNR mg/dL (8.4-10.2); Hemoglobin 10.9 gm/dl (11.8-15.2); Hemolysis Index TNR
[2020-03-19] MEDS: VASOPRESSIN 20 UNIT in SODIUM CHLORIDE 0.9% 100 ML IV SCH ×2 (06:29→18:40)
[2020-03-19] MEDS: SODIUM BICARBONATE 150 MEQ in DEXTROSE 5% IN WATER 1,000 ML IV SCH (06:29)
[2020-03-19] MEDS: methylPREDNISolone Sod Succinate 40 MG/1 ML INJ IV SCH ×3 (06:30→21:08)
--- NOTE | 2020-03-19 07:44 | Progress Note ---
Assessment and Plan Assessment and plan: Patient is a 79-year-old male with a past medical history of encephalopathy, hypertension, generalized weakness, diabetes type 2, chronic lipidemia, DVT, respiratory failure with hypoxia, CVA, and CKD presents from [facility] with complaint of sepsis with hypotension, alteration mental status, and her labs collected yesterday that resulted today showing a WBC count of 36. Of note patient was recently discharged from the hospital with ertapenem 1 g IV daily ESBL E. coli bacteremia with started on March 11 with plan in date March 21 via PICC line Patient unfortunately continues to worsen despite antibiotic treatment is nonverbal not able to follow any commands and now experiencing multiorgan failure. skilled nursing vital signs BP of 66/36, heart rate 62, respiratory rate 16, blood glucose 230, and patient presents on 3 L of nasal cannula oxygen satting 98% Patient had a negative Covid test during admission here March 02. 03/17 Patient also found to have acute kidney injury with acute tubular necrosis, toxic metabolic encephalopathy, metabolic acidosis and hypothermia. The patient is critically ill with a poor prognosis, sepsis protocol was initiated with an ICU admission. Patient was seen by registered dental assistant pressors were increased with also bicarb drip started. Unfortunately bicarb drip had to be held due to PICC line compatibility. A new PICC line has been inserted this morning. Admitting physician did speak with the son and discussed prognosis. I did also call the son this morning who informs me that the brother who is physician is coming into town and will give us further recommendation on arrival. Patient has been started on a third pressor which is epinephrine at this time. To my examination awaiting nephrology evaluation. We will proceed with giving clint tional 2 L of fluids and also obtain a stat echocardiogram to see what patient's cardiac level is. Based on ejection fraction patient may benefit from dobutamine. Will place BiPAP on standby and if need be and family does not opposed to continued full code we will proceed with likely intubation so the patient can be adequately volume resuscitated. -Continue empiric antibiotic coverage. ID consultation. Critical care assistance and input noted. Fluid Resuscitation As Noted above Continue Diet. Change IV access for triple-lumen PICC line. Will follow cultures. We will also obtain wound care consultation. 03/18: Continue current management, may need dialysis but not a candidate for HD due to 3 pressors. NO Diarrhea at this time. If not improving respiratory lopez may need Intubation. Septic shock, Severe sepsis, Bacteremia Acute renal failure likely due to ischemic ATN Acute toxic metabolic encephalopathy Rule out COVID-19 Hypothermia Metabolic acidosis Sepsis The high probability of a clinically significant, sudden or life threatening deterioration of the [multiple organ] system(s) required my full and direct attention, intervention and personal management. The aggregate critical care time was [55 minutes] minutes. This time is in addition to time spent performing reported procedures but includes the following: [X] Data Review and interpretation [X] Patient assessment and monitoring of vital signs [X] Documentation [X] Medication orders and management History Interval history: Patient seen and examined remains critically ill although respiratory status Remains on BIPAP Hospitalist Physical - Physical exam Narrative exam: VITAL SIGNS: Reviewed. GENERAL: The patient critically ill, vital signs as documented. Morbidly obese patient is in none responsive although opens his eyes intermittently. Does not follow any commands HEAD: No signs of head trauma. EYES: Pupils are equal. EARS: Unable to examine this patient following any commands MOUTH: Oropharynx is normal otherwise dry. NECK: No adenopathy, no JVD. CHEST: Chest with diminished breath sounds bilaterally. No wheezes, rales, or rhonchi. CARDIAC: Regular rate and rhythm. S1 and S2, without murmurs, gallops, or rubs. VASCULAR: chronic Edema. Peripheral pulses normal and equal in all extremities. ABDOMEN: Soft, non tender and non distended. No rebound or guarding, and no masses palpated. Bowel Sounds normal. MUSCULOSKELETAL: chronic venous changes bilateral lower ext NEUROLOGIC EXAM: Nonresponsive not following commands opens eyes otherwise PSYCHIATRIC: Unable to examine SKIN: Multiple excoriations multiple pressure ulcers, detail exam as documented in skin assessment - Constitutional Vitals: Temp Pulse Resp BP Pulse Ox 98.0 F 82 24 125/62 95 03/19/20 04:00 03/19/20 04:46 03/19/20 04:46 03/19/20 04:46 03/19/20 04:46 General appearance: Present: severe distress HEART Score - HEART Score Troponin: Troponin T 0.047 ng/mL (0.00-0.029) H D 03/16/20 22:25 Results - Labs CBC & Chem 7: 03/19/20 05:10 03/19/20 05:10 Labs: Laboratory Last Values WBC 25.8 K/mm3 (4.5-11.0) H 03/19/20 05:10 RBC 3.61 M/mm3 (3.65-5.03) L 03/19/20 05:10 Hgb 10.9 gm/dl (11.8-15.2) L D 03/19/20 05:10 Hct 36.0 % (35.5-45.6) D 03/19/20 05:10 MCV 100 fl (84-94) H 03/19/20 05:10 MCH 30 pg (28-32) 03/19/20 05:10 MCHC 30 % (32-34) L 03/19/20 05:10 RDW 19.1 % (13.2-15.2) H 03/19/20 05:10 Plt Count 150 K/mm3 (140-440) 03/19/20 05:10 Add Manual Diff Complete 03/17/20 11:13 Total Counted 100 03/17/20 11:13 Seg Neutrophils % Project Admin 03/17/20 11:13 Seg Neuts % (Manual) 88.0 % (40.0-70.0) H 03/17/20 11:13 Band Neutrophils % 6.0 % 03/17/20 11:13 Lymphocytes % (Manual) 1.0 % (13.4-35.0) L 03/17/20 11:13 Reactive Lymphs % (Man) 0 % 03/17/20 11:13 Monocytes % (Manual) 2.0 % (0.0-7.3) 03/17/20 11:13 Eosinophils % (Manual) 0 % (0.0-4.3) 03/17/20 11:13 Basophils % (Manual) 0 % (0.0-1.8) 03/17/20 11:13 Metamyelocytes % 3.0 % 03/17/20 11:13 Myelocytes % 0 % 03/17/20 11:13 Promyelocytes % 0 % 03/17/20 11:13 Blast Cells % 0 % 03/17/20 11:13 Nucleated RBC % 13.0 % (0.0-0.9) H 03/17/20 11:13 Seg Neutrophils # Man 30.3 K/mm3 (1.8-7.7) H 03/17/20 11:13 Band Neutrophils # 2.1 K/mm3 03/17/20 11:13 Lymphocytes # (Manual) 0.3 K/mm3 (1.2-5.4) L 03/17/20 11:13 Abs React Lymphs (Man) 0.0 K/mm3 03/17/20 11:13 Monocytes # (Manual) 0.7 K/mm3 (0.0-0.8) 03/17/20 11:13 Eosinophils # (Manual) 0.0 K/mm3 (0.0-0.4) 03/17/20 11:13 Basophils # (Manual) 0.0 K/mm3 (0.0-0.1) 03/17/20 11:13 Metamyelocytes # 1.0 K/mm3 03/17/20 11:13 Myelocytes # 0.0 K/mm3 03/17/20 11:13 Promyelocytes # 0.0 K/mm3 03/17/20 11:13 Blast Cells # 0.0 K/mm3 03/17/20 11:13 Pathologist Review 03/16/20 14:22 WBC Morphology Not Reportable 03/17/20 11:13 Hypersegmented Neuts Not Reportable 03/17/20 11:13 Hyposegmented Neuts Not Reportable 03/17/20 11:13 Hypogranular Neuts Not Reportable 03/17/20 11:13 Smudge Cells Not Reportable 03/17/20 11:13 Toxic Granulation Not Reportable 03/17/20 11:13 Toxic Vacuolation Not Reportable 03/17/20 11:13 Dohle Bodies Not Reportable 03/17/20 11:13 Pelger-Huet Anomaly Not Reportable 03/17/20 11:13 Santiago Rods Not Reportable 03/17/20 11:13 Platelet Estimate Consistent w auto 03/17/20 11:13 Clumped Platelets Rare 03/17/20 11:13 Plt Clumps, EDTA Not Reportable 03/17/20 11:13 Large Platelets Not Reportable 03/17/20 11:13 Giant Platelets Not Reportable 03/17/20 11:13 Platelet Satelliting Not Reportable 03/17/20 11:13 Plt Morphology Comment Not Reportable 03/17/20 11:13 RBC Morphology Not Reportable 03/17/20 11:13 Dimorphic RBCs Not Reportable 03/17/20 11:13 Polychromasia Not Reportable 03/17/20 11:13 Hypochromasia Not Reportable 03/17/20 11:13 Poikilocytosis Not Reportable 03/17/20 11:13 Anisocytosis 2+ 03/17/20 11:13 Microcytosis Few 03/17/20 11:13 Macrocytosis 1+ 03/17/20 11:13 Spherocytes Not Reportable 03/17/20 11:13 Pappenheimer Bodies Not Reportable 03/17/20 11:13 Sickle Cells Not Reportable 03/17/20 11:13 Target Cells Not Reportable 03/17/20 11:13 Tear Drop Cells Not Reportable 03/17/20 11:13 Ovalocytes Not Reportable 03/17/20 11:13 Helmet Cells Not Reportable 03/17/20 11:13 [place] Bodies Not Reportable 03/17/20 11:13 Kellogg Rings Not Reportable 03/17/20 11:13 Luis Alfredo Cells Not Reportable 03/17/20 11:13 Bite Cells Not Reportable 03/17/20 11:13 Crenated Cell Not Reportable 03/17/20 11:13 Elliptocytes Not Reportable 03/17/20 11:13 Acanthocytes (Spur) Not Reportable 03/17/20 11:13 Rouleaux Not Reportable 03/17/20 11:13 Hemoglobin C Crystals Not Reportable 03/17/20 11:13 Schistocytes Not Reportable 03/17/20 11:13 Malaria parasites Not Reportable 03/17/20 11:13 Isauro Bodies Not Reportable 03/17/20 11:13 Hem Pathologist Commnt No 03/17/20 11:13 PT 17.2 Sec. (12.2-14.9) H 03/16/20 14:27 INR 1.37 (0.87-1.13) H 03/16/20 14:27 APTT 51.3 Sec. (24.2-36.6) H 03/16/20 14:27 ABG pH 7.309 pH Units (7.350-7.450) L 03/19/20 04:10 POC ABG pCO2 37.3 mmHg (32.0-48.0) 03/18/20 12:14 ABG pCO2 36.5 mm Hg 03/19/20 04:10 POC ABG pO2 67.4 mmHg (83-108) L 03/18/20 12:14 ABG pO2 69.4 mm Hg (80.0-90.0) L 03/19/20 04:10 POC ABG HCO3 14.1 03/18/20 12:14 ABG HCO3 17.9 mmol/L (20.0-26.0) L 03/19/20 04:10 ABG O2 Saturation 92.4 % (95.0-99.0) L 03/19/20 04:10 ABG O2 Content 10.4 (0.0-44) 03/19/20 04:10 POC ABG Base Excess -13.0 03/18/20 12:14 ABG Base Excess -7.6 mmol/L (-2.0-3.0) L 03/19/20 04:10 ABG Hemoglobin 8.1 gm/dl (14.0-18.0) L 03/19/20 04:10 ABG Carboxyhemoglobin 1.2 % (0.0-5.0) 03/19/20 04:10 ABG Methemoglobin 0.5 % (0.0-1.5) 03/19/20 04:10 ABG Sodium 138.8 mmol/L (136.0-145.0) 03/18/20 12:14 ABG Potassium 3.3 mmol/L (3.40-4.50) L 03/18/20 12:14 ABG Chloride 112.0 mmol/L (98-107) H 03/18/20 12:14 ABG Glucose 355 mg/dL (65-95) H 03/18/20 12:14 Oxyhemoglobin 90.8 % (95.0-99.0) L 03/19/20 04:10 FiO2 50 % 03/19/20 04:10 Sodium TNR 03/19/20 05:10 Potassium TNR 03/19/20 05:10 Chloride TNR 03/19/20 05:10 Carbon Dioxide TNR 03/19/20 05:10 Anion Gap TNR 03/19/20 05:10 BUN TNR 03/19/20 05:10 Creatinine TNR 03/19/20 05:10 Estimated GFR TNR 03/19/20 05:10 BUN/Creatinine Ratio TNR 03/19/20 05:10 Glucose TNR 03/19/20 05:10 POC Glucose 338 mg/dL (70-105) H 03/19/20 01:32 EST Lactic Acid 1.80 mmol/L (0.7-2.0) 03/16/20 Unknown Calcium TNR 03/19/20 05:10 Phosphorus 5.60 mg/dL (2.5-4.5) H 03/19/20 05:10 Magnesium 1.40 mg/dL (1.7-2.3) L 03/18/20 04:40 Total Bilirubin 0.20 mg/dL (0.1-1.2) 03/16/20 14:22 AST 22 units/L (5-40) 03/16/20 14:22 ALT 8 units/L (7-56) 03/16/20 14:22 Alkaline Phosphatase 224 units/L (35-129) H 03/16/20 14:22 Total Creatine Kinase 373 units/L (55-170) H 03/17/20 11:13 Troponin T 0.047 ng/mL (0.00-0.029) H D 03/16/20 22:25 Total Protein 5.4 g/dL (6.3-8.2) L 03/16/20 14:22 Albumin 1.9 g/dL (3.9-5) L 03/16/20 14:22 Albumin/Globulin Ratio 0.5 % 03/16/20 14:22 Triglycerides 107 mg/dL (2-149) 03/16/20 14:23 Cholesterol 95 mg/dL (50-199) 03/16/20 14:23 LDL Cholesterol Direct 35 mg/dL (50-130) L 03/16/20 14:23 HDL Cholesterol 37 mg/dL (40-59) L 03/16/20 14:23 Cholesterol/HDL Ratio 2.56 % 03/16/20 14:23 Procalcitonin 9.59 ng/mL (<0.15) 03/17/20 18:53 Arterial Blood Glucose 355 mg/dL (65-95) H 03/18/20 12:14 Arterial Blood Ionized Calcium 4.5 mg/dL (4.6-5.3) L 03/18/20 12:14 Urine Color Shruthi (Yellow) 03/17/20 11:40 Urine Turbidity Turbid (Clear) 03/17/20 11:40 Urine pH 5.0 (5.0-7.0) 03/17/20 11:40 Ur Specific [place] 1.015 (1.003-1.030) 03/17/20 11:40 Urine Protein 100 mg/dl mg/dL (Negative) 03/17/20 11:40 Urine Glucose (UA) 50 mg/dL (Negative) 03/17/20 11:40 Urine Ketones Neg mg/dL (Negative) 03/17/20 11:40 Urine Blood Sm (Negative) 03/17/20 11:40 Urine Nitrite Neg (Negative) 03/17/20 11:40 Urine Bilirubin Neg (Negative) 03/17/20 11:40 Urine Urobilinogen 2.0 mg/dL (<2.0) 03/17/20 11:40 Ur Leukocyte Esterase Lg (Negative) 03/17/20 11:40 Urine WBC (Auto) > 182.0 /HPF (0.0-6.0) H 03/17/20 11:40 Urine RBC (Auto) 26.0 /HPF (0.0-6.0) 03/17/20 11:40 U Epithel Cells (Auto) 2.0 /HPF (0-13.0) 03/16/20 21:15 Urine Bacteria (Auto) 2+ /HPF (Negative) 03/17/20 11:40 Urine WBC Clumps 3+ /HPF 03/17/20 11:40 Urine Mucus 1+ /HPF 03/17/20 11:40 Urine Yeast (Budding) 2+ /HPF 03/16/20 21:15 Urine Creatinine 139.3 mg/dL (0.1-20.0) H 03/17/20 Unknown Protein/Creatinin Ratio 2.35 03/17/20 Unknown Urine Sodium 53 mmol/L 03/17/20 Unknown Urine Total Protein 328 mg/dL (5-11.8) H 03/17/20 Unknown Random Vancomycin 8.4 ug/mL (0-40.0) 03/18/20 04:40 Coronavirus (PCR) Negative (Negative) 03/17/20 09:03 Microbiology: Microbiology 03/16/20 14:15 Peripheral/Venous Blood Culture - Preliminary NO GROWTH AFTER 48 HOURS 03/16/20 14:15 Peripheral/Venous Blood Culture - Preliminary NO GROWTH AFTER 48 HOURS Cunningham/IV: Voiding Method Indwelling Catheter IV Catheter Type [right wrist] Peripheral IV IV Catheter Type [Right Upper PICC Line arm] IV Catheter Type [Left Upper PICC Line arm] Active Medications - Current Medications Current Medications: Generic Name Dose Route Start Last Admin Trade Name Freq PRN Reason Stop Dose Admin Acetaminophen 650 mg 03/16/20 17:30 Tylenol PO Q6H PRN Pain, Mild (1-3) Albumin Human 25 gm 03/18/20 18:00 03/19/20 01:33 EST Alburx 25% (Albumin) IV 03/19/20 12:01 Not Given Q6H IDRIS Albuterol 2.5 mg 03/16/20 17:00 Proventil IH Q3HRT PRN Shortness Of Breath Lipase/Protease/Amylase 1 each 03/17/20 17:[address] 10,500 Unit FEEDTUBE PRN PRN For Clogged Feeding Tube Famotidine 20 mg 03/18/20 10:00 03/18/20 10:31 Pepcid IV 20 mg DAILY IDRIS Administration Heparin Sodium (Porcine) 5,000 unit 03/16/20 22:00 03/18/20 22:50 Heparin SUB-Q 5,000 unit Q12HR IDRIS Administration Hydromorphone HCl 0.25 mg 03/16/20 17:30 Dilaudid IV Q4H PRN Pain, Moderate (4-6) Vasopressin 20 unit/ Sodium 101 mls @ 9.09 mls/hr 03/16/20 20:00 03/19/20 06:29 Chloride IV 0.03 units/min TITR IDRIS 9.09 mls/hr Administration Protocol 0.03 UNITS/MIN Norepinephrine 8 mg/ Sodium 250 mls @ 3.75 mls/hr 03/16/20 23:00 03/19/20 06:09 Chloride IV 5 mcg/min TITR IDRIS 9.375 mls/hr Titration Protocol 2 MCG/MIN Epinephrine 8 mg/ Sodium 250 mls @ 3.75 mls/hr 03/17/20 04:00 03/19/20 06:09 Chloride IV 5 mcg/min TITR IDRIS 9.375 mls/hr Titration Protocol 2 MCG/MIN MEROPENEM/NS 1 GRAM/100 ML 1 gram in 100 mls @ 100 mls/hr 03/17/20 12:00 03/18/20 10:32 Merrem/Ns 1 Gram/100 Ml IV 100 mls/hr Q24HR IDRIS Administration Protocol Sodium Bicarbonate 150 meq/ 1,150 mls @ 100 mls/hr 03/17/20 18:00 03/19/20 06:29 Dextrose IV 03/20/20 05:29 150 mls/hr DIRECT IDRIS Administration Insulin Glargine 20 units 03/18/20 22:00 03/18/20 22:51 Lantus SUB-Q 20 units QHS IDRIS Administration Insulin Human Lispro 0 unit 03/18/20 12:00 03/19/20 06:52 Humalog SUB-Q 10 unit Q6HR IDRIS Administration Protocol Methylprednisolone Sodium Succinate 40 mg 03/16/20 22:00 03/19/20 06:30 Solu-Medrol IV 40 mg Q8HR IDRIS Administration Simple Syrup 15 ml 03/17/20 17:12 Simple Syrup FEEDTUBE PRN PRN Hypoglycemia Simple Syrup 30 ml 03/17/20 17:12 Simple Syrup FEEDTUBE PRN PRN Hypoglycemia Sodium Bicarbonate 325 mg 03/17/20 17:12 Sodium Bicarbonate FEEDTUBE PRN PRN For Clogged Feeding Tube Sodium Bicarbonate 1,300 mg 03/18/20 14:00 03/19/20 01:33 EST Sodium Bicarbonate PO Not Given QID IDRIS Sodium Chloride 10 ml 03/16/20 22:00 03/18/20 23:16 Sodium Chloride Flush Syringe 10 Ml IV 10 ml BID IDRIS Administration Sodium Chloride 10 ml 03/16/20 17:00 Sodium Chloride Flush Syringe 10 Ml IV PRN PRN LINE FLUSH Nutrition/Malnutrition Assess - Dietary Evaluation Nutrition/Malnutrition Findings: Nutrition Notes Start: 03/18/20 09:15 Freq: Status: Active Protocol: Document 03/18/20 09:15 LM (Rec: 03/18/20 09:36 LM [id number]) Nutrition Notes Need for Assessment generated from: MD Order Initial or Follow up Assessment Current Diagnosis Acute Kidney Injury,CKD(stage I-IV),Diabetes,Hypertension Other Pertinent Diagnosis Septic shock, suspected COVID- 19, debility, hypothermia, debility Current Diet Nepro at 20ml/hr Labs/Tests K 2.7 Phos 5.4 Mg 1.4 BG 347 BUN 56 Cr 4.6 Pertinent Medications KCl at 100ml/hr Solumedrol Norepinepherine Epinepherine Vasopressin Height 5 ft 11 in Weight 121 kg Bliss Body Weight (kg) 78.18 BMI 37.2 Weight Status Obese Subjective/Other Information MD consult for TF. ordered Nepro at 20ml/hr. Pt is on multiple pressors and in ED. Pt has dry and flakey skin on lower back and buttocks. Pt is not on the vent. Burn Absent Trauma Absent Current % PO Negligible Minimum of two criteria No physical signs of malnutrition #1 Nutrition Diagnosis Inadequate oral intake Etiology Septic shock, chroninc illness As Evidenced by Signs and Symptoms pt requiring TF Is patient on ventilator? No Is Patient Ambulatory and/or Out of Bed No REE-([place]-confined to bed) 2330.880 Kcal/Kg value to use for calculation 15 Approximate Energy Requirements Using 1815 kcal/Kg Calculation Used for Recommendations Kcal/kg Additional Notes Protein: 80-120g/kg (0.8-1.2g/ kg using AdjBW 100kg) Fluid: 1ml/kcal or per MD Nutrition Intervention Change Diet Order: TF Nutrition Support: Nepro 1.8 at 40ml/hr Flush 170ml q4h Kcal 1,728 Protein (gm) 78 Fluid (mL) 698 Goal #1 TF tolerance Goal #2 Meet at least 80% of energy and protein needs Anticipated Discharge Needs: unable to determine at this time Follow-Up By: 03/20/20 Additional Comments F/U for TF tolerance, K, phos
--- NOTE | 2020-03-19 08:10 | Progress Note ---
Assessment and Plan Assessment and plan: Patient is a 79-year-old male with a past medical history of encephalopathy, hypertension, generalized weakness, diabetes type 2, chronic lipidemia, DVT, respiratory failure with hypoxia, CVA, and CKD presents from detention with complaint of sepsis with hypotension, alteration mental status, and her labs collected yesterday that resulted today showing a WBC count of 36. Of note patient was recently discharged from the hospital with ertapenem 1 g IV daily ESBL E. coli bacteremia with started on March 11 with plan in date March 21 via PICC line Patient unfortunately continues to worsen despite antibiotic treatment is nonverbal not able to follow any commands and now experiencing multiorgan failure. [facility] vital signs BP of 66/36, heart rate 62, respiratory rate 16, blood glucose 230, and patient presents on 3 L of nasal cannula oxygen satting 98% Patient had a negative Covid test during admission here March 02. 03/17 Patient also found to have acute kidney injury with acute tubular necrosis, toxic metabolic encephalopathy, metabolic acidosis and hypothermia. The patient is critically ill with a poor prognosis, sepsis protocol was initiated with an ICU admission. Patient was seen by cutter plastics rolls pressors were increased with also bicarb drip started. Unfortunately bicarb drip had to be held due to PICC line compatibility. A new PICC line has been inserted this morning. Admitting physician did speak with the son and discussed prognosis. I did also call the son this morning who informs me that the brother who is physician is coming into town and will give us further recommendation on arrival. Patient has been started on a third pressor which is epinephrine at this time. To my examination awaiting nephrology evaluation. We will proceed with giving clint tional 2 L of fluids and also obtain a stat echocardiogram to see what patient's cardiac level is. Based on ejection fraction patient may benefit from dobutamine. Will place BiPAP on standby and if need be and family does not opposed to continued full code we will proceed with likely intubation so the patient can be adequately volume resuscitated. -Continue empiric antibiotic coverage. ID consultation. Critical care assistance and input noted. Fluid Resuscitation As Noted above Continue Diet. Change IV access for triple-lumen PICC line. Will follow cultures. We will also obtain wound care consultation. 03/18: Continue current management, may need dialysis but not a candidate for HD due to 3 pressors. NO Diarrhea at this time. If not improving respiratory lopez may need Intubation. 03/19: Continue supportive care, mental status showing some improvement, still on BIPAP. BP improving will stop Epi and bring down to 2 pressors. Awaiting ECHO. IF continues to have worsening Renal function, May need transfer to CRRT if unable to perform HD. Patients son updated of current clinically status. Septic shock, Severe sepsis, Bacteremia Acute renal failure likely due to ischemic ATN Azotemia Acute toxic metabolic encephalopathy Rule out COVID-19 Hypothermia Metabolic acidosis Sepsis The high probability of a clinically significant, sudden or life threatening deterioration of the [multiple organ] system(s) required my full and direct attention, intervention and personal management. The aggregate critical care time was [55 minutes] minutes. This time is in addition to time spent performing reported procedures but includes the following: [X] Data Review and interpretation [X] Patient assessment and monitoring of vital signs [X] Documentation [X] Medication orders and management History Interval history: Patient seen and examined remains critically ill NOW ON BIPAP DUE TO RESPIRATORY DISTRESS OVERNIGHT Hospitalist Physical - Physical exam Narrative exam: VITAL SIGNS: Reviewed. GENERAL: The patient critically ill, vital signs as documented. Morbidly obese patient is in none responsive although opens his eyes intermittently. Does not follow any commands, ON BIPAP HEAD: No signs of head trauma. EYES: Pupils are equal. EARS: Unable to examine this patient following any commands MOUTH: Oropharynx is normal otherwise dry. NECK: No adenopathy, no JVD. CHEST: Chest with dminished breath sounds bilaterally. No wheezes, rales, or rhonchi. CARDIAC: Regular rate and rhythm. S1 and S2, without murmurs, gallops, or rubs. VASCULAR: chronic Edema. Peripheral pulses normal and equal in all extremities. ABDOMEN: Soft, non tender and non distended. No rebound or guarding, and no masses palpated. Bowel Sounds normal. MUSCULOSKELETAL: chronic venous changes bilateral lower ext NEUROLOGIC EXAM: Nonresponsive not following commands opens eyes otherwise PSYCHIATRIC: Unable to examine SKIN: Multiple excoriations multiple pressure ulcers, detail exam as documented in skin assessment - Constitutional Vitals: Temp Pulse Resp BP Pulse Ox 98.0 F 133 H 37 H 41/23 95 03/19/20 04:00 03/19/20 05:00 03/19/20 05:15 03/19/20 05:15 03/19/20 04:46 General appearance: Present: severe distress HEART Score - HEART Score Troponin: Troponin T 0.047 ng/mL (0.00-0.029) H D 03/16/20 22:25 Results - Labs CBC & Chem 7: 03/19/20 05:10 03/19/20 05:10 Labs: Laboratory Last Values WBC 25.8 K/mm3 (4.5-11.0) H 03/19/20 05:10 RBC 3.61 M/mm3 (3.65-5.03) L 03/19/20 05:10 Hgb 10.9 gm/dl (11.8-15.2) L D 03/19/20 05:10 Hct 36.0 % (35.5-45.6) D 03/19/20 05:10 MCV 100 fl (84-94) H 03/19/20 05:10 MCH 30 pg (28-32) 03/19/20 05:10 MCHC 30 % (32-34) L 03/19/20 05:10 RDW 19.1 % (13.2-15.2) H 03/19/20 05:10 Plt Count 150 K/mm3 (140-440) 03/19/20 05:10 Add Manual Diff Complete 03/17/20 11:13 Total Counted 100 03/17/20 11:13 Seg Neutrophils % Multifocal Lens Assembler 03/17/20 11:13 Seg Neuts % (Manual) 88.0 % (40.0-70.0) H 03/17/20 11:13 Band Neutrophils % 6.0 % 03/17/20 11:13 Lymphocytes % (Manual) 1.0 % (13.4-35.0) L 03/17/20 11:13 Reactive Lymphs % (Man) 0 % 03/17/20 11:13 Monocytes % (Manual) 2.0 % (0.0-7.3) 03/17/20 11:13 Eosinophils % (Manual) 0 % (0.0-4.3) 03/17/20 11:13 Basophils % (Manual) 0 % (0.0-1.8) 03/17/20 11:13 Metamyelocytes % 3.0 % 03/17/20 11:13 Myelocytes % 0 % 03/17/20 11:13 Promyelocytes % 0 % 03/17/20 11:13 Blast Cells % 0 % 03/17/20 11:13 Nucleated RBC % 13.0 % (0.0-0.9) H 03/17/20 11:13 Seg Neutrophils # Man 30.3 K/mm3 (1.8-7.7) H 03/17/20 11:13 Band Neutrophils # 2.1 K/mm3 03/17/20 11:13 Lymphocytes # (Manual) 0.3 K/mm3 (1.2-5.4) L 03/17/20 11:13 Abs React Lymphs (Man) 0.0 K/mm3 03/17/20 11:13 Monocytes # (Manual) 0.7 K/mm3 (0.0-0.8) 03/17/20 11:13 Eosinophils # (Manual) 0.0 K/mm3 (0.0-0.4) 03/17/20 11:13 Basophils # (Manual) 0.0 K/mm3 (0.0-0.1) 03/17/20 11:13 Metamyelocytes # 1.0 K/mm3 03/17/20 11:13 Myelocytes # 0.0 K/mm3 03/17/20 11:13 Promyelocytes # 0.0 K/mm3 03/17/20 11:13 Blast Cells # 0.0 K/mm3 03/17/20 11:13 Pathologist Review 03/16/20 14:22 WBC Morphology Not Reportable 03/17/20 11:13 Hypersegmented Neuts Not Reportable 03/17/20 11:13 Hyposegmented Neuts Not Reportable 03/17/20 11:13 Hypogranular Neuts Not Reportable 03/17/20 11:13 Smudge Cells Not Reportable 03/17/20 11:13 Toxic Granulation Not Reportable 03/17/20 11:13 Toxic Vacuolation Not Reportable 03/17/20 11:13 Dohle Bodies Not Reportable 03/17/20 11:13 Pelger-Huet Anomaly Not Reportable 03/17/20 11:13 Santiago Rods Not Reportable 03/17/20 11:13 Platelet Estimate Consistent w auto 03/17/20 11:13 Clumped Platelets Rare 03/17/20 11:13 Plt Clumps, EDTA Not Reportable 03/17/20 11:13 Large Platelets Not Reportable 03/17/20 11:13 Giant Platelets Not Reportable 03/17/20 11:13 Platelet Satelliting Not Reportable 03/17/20 11:13 Plt Morphology Comment Not Reportable 03/17/20 11:13 RBC Morphology Not Reportable 03/17/20 11:13 Dimorphic RBCs Not Reportable 03/17/20 11:13 Polychromasia Not Reportable 03/17/20 11:13 Hypochromasia Not Reportable 03/17/20 11:13 Poikilocytosis Not Reportable 03/17/20 11:13 Anisocytosis 2+ 03/17/20 11:13 Microcytosis Few 03/17/20 11:13 Macrocytosis 1+ 03/17/20 11:13 Spherocytes Not Reportable 03/17/20 11:13 Pappenheimer Bodies Not Reportable 03/17/20 11:13 Sickle Cells Not Reportable 03/17/20 11:13 Target Cells Not Reportable 03/17/20 11:13 Tear Drop Cells Not Reportable 03/17/20 11:13 Ovalocytes Not Reportable 03/17/20 11:13 Helmet Cells Not Reportable 03/17/20 11:13 [place] Bodies Not Reportable 03/17/20 11:13 [place] Rings Not Reportable 03/17/20 11:13 [place] Cells Not Reportable 03/17/20 11:13 Bite Cells Not Reportable 03/17/20 11:13 Crenated Cell Not Reportable 03/17/20 11:13 Elliptocytes Not Reportable 03/17/20 11:13 Acanthocytes (Spur) Not Reportable 03/17/20 11:13 Rouleaux Not Reportable 03/17/20 11:13 Hemoglobin C Crystals Not Reportable 03/17/20 11:13 Schistocytes Not Reportable 03/17/20 11:13 Malaria parasites Not Reportable 03/17/20 11:13 Isauro Bodies Not Reportable 03/17/20 11:13 Hem Pathologist Commnt No 03/17/20 11:13 PT 17.2 Sec. (12.2-14.9) H 03/16/20 14:27 INR 1.37 (0.87-1.13) H 03/16/20 14:27 APTT 51.3 Sec. (24.2-36.6) H 03/16/20 14:27 ABG pH 7.309 pH Units (7.350-7.450) L 03/19/20 04:10 POC ABG pCO2 37.3 mmHg (32.0-48.0) 03/18/20 12:14 ABG pCO2 36.5 mm Hg 03/19/20 04:10 POC ABG pO2 67.4 mmHg (83-108) L 03/18/20 12:14 ABG pO2 69.4 mm Hg (80.0-90.0) L 03/19/20 04:10 POC ABG HCO3 14.1 03/18/20 12:14 ABG HCO3 17.9 mmol/L (20.0-26.0) L 03/19/20 04:10 ABG O2 Saturation 92.4 % (95.0-99.0) L 03/19/20 04:10 ABG O2 Content 10.4 (0.0-44) 03/19/20 04:10 POC ABG Base Excess -13.0 03/18/20 12:14 ABG Base Excess -7.6 mmol/L (-2.0-3.0) L 03/19/20 04:10 ABG Hemoglobin 8.1 gm/dl (14.0-18.0) L 03/19/20 04:10 ABG Carboxyhemoglobin 1.2 % (0.0-5.0) 03/19/20 04:10 ABG Methemoglobin 0.5 % (0.0-1.5) 03/19/20 04:10 ABG Sodium 138.8 mmol/L (136.0-145.0) 03/18/20 12:14 ABG Potassium 3.3 mmol/L (3.40-4.50) L 03/18/20 12:14 ABG Chloride 112.0 mmol/L (98-107) H 03/18/20 12:14 ABG Glucose 355 mg/dL (65-95) H 03/18/20 12:14 Oxyhemoglobin 90.8 % (95.0-99.0) L 03/19/20 04:10 FiO2 50 % 03/19/20 04:10 Sodium TNR 03/19/20 05:10 Potassium TNR 03/19/20 05:10 Chloride TNR 03/19/20 05:10 Carbon Dioxide TNR 03/19/20 05:10 Anion Gap TNR 03/19/20 05:10 BUN TNR 03/19/20 05:10 Creatinine TNR 03/19/20 05:10 Estimated GFR TNR 03/19/20 05:10 BUN/Creatinine Ratio TNR 03/19/20 05:10 Glucose TNR 03/19/20 05:10 POC Glucose 338 mg/dL (70-105) H 03/19/20 01:32 EST Lactic Acid 1.80 mmol/L (0.7-2.0) 03/16/20 Unknown Calcium TNR 03/19/20 05:10 Phosphorus 5.60 mg/dL (2.5-4.5) H 03/19/20 05:10 Magnesium 1.40 mg/dL (1.7-2.3) L 03/18/20 04:40 Total Bilirubin 0.20 mg/dL (0.1-1.2) 03/16/20 14:22 AST 22 units/L (5-40) 03/16/20 14:22 ALT 8 units/L (7-56) 03/16/20 14:22 Alkaline Phosphatase 224 units/L (35-129) H 03/16/20 14:22 Total Creatine Kinase 373 units/L (55-170) H 03/17/20 11:13 Troponin T 0.047 ng/mL (0.00-0.029) H D 03/16/20 22:25 Total Protein 5.4 g/dL (6.3-8.2) L 03/16/20 14:22 Albumin 1.9 g/dL (3.9-5) L 03/16/20 14:22 Albumin/Globulin Ratio 0.5 % 03/16/20 14:22 Triglycerides 107 mg/dL (2-149) 03/16/20 14:23 Cholesterol 95 mg/dL (50-199) 03/16/20 14:23 LDL Cholesterol Direct 35 mg/dL (50-130) L 03/16/20 14:23 HDL Cholesterol 37 mg/dL (40-59) L 03/16/20 14:23 Cholesterol/HDL Ratio 2.56 % 03/16/20 14:23 Procalcitonin 9.59 ng/mL (<0.15) 03/17/20 18:53 Arterial Blood Glucose 355 mg/dL (65-95) H 03/18/20 12:14 Arterial Blood Ionized Calcium 4.5 mg/dL (4.6-5.3) L 03/18/20 12:14 Urine Color Shruthi (Yellow) 03/17/20 11:40 Urine Turbidity Turbid (Clear) 03/17/20 11:40 Urine pH 5.0 (5.0-7.0) 03/17/20 11:40 Ur Specific [place] 1.015 (1.003-1.030) 03/17/20 11:40 Urine Protein 100 mg/dl mg/dL (Negative) 03/17/20 11:40 Urine Glucose (UA) 50 mg/dL (Negative) 03/17/20 11:40 Urine Ketones Neg mg/dL (Negative) 03/17/20 11:40 Urine Blood Sm (Negative) 03/17/20 11:40 Urine Nitrite Neg (Negative) 03/17/20 11:40 Urine Bilirubin Neg (Negative) 03/17/20 11:40 Urine Urobilinogen 2.0 mg/dL (<2.0) 03/17/20 11:40 Ur Leukocyte Esterase Lg (Negative) 03/17/20 11:40 Urine WBC (Auto) > 182.0 /HPF (0.0-6.0) H 03/17/20 11:40 Urine RBC (Auto) 26.0 /HPF (0.0-6.0) 03/17/20 11:40 U Epithel Cells (Auto) 2.0 /HPF (0-13.0) 03/16/20 21:15 Urine Bacteria (Auto) 2+ /HPF (Negative) 03/17/20 11:40 Urine WBC Clumps 3+ /HPF 03/17/20 11:40 Urine Mucus 1+ /HPF 03/17/20 11:40 Urine Yeast (Budding) 2+ /HPF 03/16/20 21:15 Urine Creatinine 139.3 mg/dL (0.1-20.0) H 03/17/20 Unknown Protein/Creatinin Ratio 2.35 03/17/20 Unknown Urine Sodium 53 mmol/L 03/17/20 Unknown Urine Total Protein 328 mg/dL (5-11.8) H 03/17/20 Unknown Random Vancomycin 8.4 ug/mL (0-40.0) 03/18/20 04:40 Coronavirus (PCR) Negative (Negative) 03/17/20 09:03 Microbiology: Microbiology 03/16/20 14:15 Peripheral/Venous Blood Culture - Preliminary NO GROWTH AFTER 48 HOURS 03/16/20 14:15 Peripheral/Venous Blood Culture - Preliminary NO GROWTH AFTER 48 HOURS Cunningham/IV: Voiding Method Indwelling Catheter IV Catheter Type [right wrist] Peripheral IV IV Catheter Type [Right Upper PICC Line arm] IV Catheter Type [Left Upper PICC Line arm] Active Medications - Current Medications Current Medications: Generic Name Dose Route Start Last Admin Trade Name Freq PRN Reason Stop Dose Admin Acetaminophen 650 mg 03/16/20 17:30 Tylenol PO Q6H PRN Pain, Mild (1-3) Albumin Human 25 gm 03/18/20 18:00 03/19/20 01:33 EST Alburx 25% (Albumin) IV 03/19/20 12:01 Not Given Q6H IDRIS Albuterol 2.5 mg 03/16/20 17:00 Proventil IH Q3HRT PRN Shortness Of Breath Lipase/Protease/Amylase 1 each 03/17/20 17:[address] 10,500 Unit FEEDTUBE PRN PRN For Clogged Feeding Tube Famotidine 20 mg 03/18/20 10:00 03/18/20 10:31 Pepcid IV 20 mg DAILY IDRIS Administration Heparin Sodium (Porcine) 5,000 unit 03/16/20 22:00 03/18/20 22:50 Heparin SUB-Q 5,000 unit Q12HR IDRIS Administration Hydromorphone HCl 0.25 mg 03/16/20 17:30 Dilaudid IV Q4H PRN Pain, Moderate (4-6) Vasopressin 20 unit/ Sodium 101 mls @ 9.09 mls/hr 03/16/20 20:00 03/19/20 06:29 Chloride IV 0.03 units/min TITR IDRIS 9.09 mls/hr Administration Protocol 0.03 UNITS/MIN Norepinephrine 8 mg/ Sodium 250 mls @ 3.75 mls/hr 03/16/20 23:00 03/19/20 06:09 Chloride IV 5 mcg/min TITR IDRIS 9.375 mls/hr Titration Protocol 2 MCG/MIN Epinephrine 8 mg/ Sodium 250 mls @ 3.75 mls/hr 03/17/20 04:00 03/19/20 07:50 Chloride IV 2 mcg/min TITR IDRIS 3.75 mls/hr Titration Protocol 2 MCG/MIN MEROPENEM/NS 1 GRAM/100 ML 1 gram in 100 mls @ 100 mls/hr 03/17/20 12:00 03/18/20 10:32 Merrem/Ns 1 Gram/100 Ml IV 100 mls/hr Q24HR IDRIS Administration Protocol Sodium Bicarbonate 150 meq/ 1,150 mls @ 100 mls/hr 03/17/20 18:00 03/19/20 06:29 Dextrose IV 03/20/20 05:29 150 mls/hr DIRECT IDRIS Administration Insulin Glargine 20 units 03/18/20 22:00 03/18/20 22:51 Lantus SUB-Q 20 units QHS IDRIS Administration Insulin Human Lispro 0 unit 03/18/20 12:00 03/19/20 06:52 Humalog SUB-Q 10 unit Q6HR IDRIS Administration Protocol Methylprednisolone Sodium Succinate 40 mg 03/16/20 22:00 03/19/20 06:30 Solu-Medrol IV 40 mg Q8HR IDRIS Administration Simple Syrup 15 ml 03/17/20 17:12 Simple Syrup FEEDTUBE PRN PRN Hypoglycemia Simple Syrup 30 ml 03/17/20 17:12 Simple Syrup FEEDTUBE PRN PRN Hypoglycemia Sodium Bicarbonate 325 mg 03/17/20 17:12 Sodium Bicarbonate FEEDTUBE PRN PRN For Clogged Feeding Tube Sodium Bicarbonate 1,300 mg 03/18/20 14:00 03/19/20 08:01 Sodium Bicarbonate PO Not Given QID IDRIS Sodium Chloride 10 ml 03/16/20 22:00 03/18/20 23:16 Sodium Chloride Flush Syringe 10 Ml IV 10 ml BID IDRIS Administration Sodium Chloride 10 ml 03/16/20 17:00 Sodium Chloride Flush Syringe 10 Ml IV PRN PRN LINE FLUSH Nutrition/Malnutrition Assess - Dietary Evaluation Nutrition/Malnutrition Findings: Nutrition Notes Start: 03/18/20 09:15 Freq: Status: Active Protocol: Document 03/18/20 09:15 LM (Rec: 03/18/20 09:36 LM [id number]) Nutrition Notes Need for Assessment generated from: MD Order Initial or Follow up Assessment Current Diagnosis Acute Kidney Injury,CKD(stage I-IV),Diabetes,Hypertension Other Pertinent Diagnosis Septic shock, suspected COVID- 19, debility, hypothermia, debility Current Diet Nepro at 20ml/hr Labs/Tests K 2.7 Phos 5.4 Mg 1.4 BG 347 BUN 56 Cr 4.6 Pertinent Medications KCl at 100ml/hr Solumedrol Norepinepherine Epinepherine Vasopressin Height 5 ft 11 in Weight 121 kg [place] Body Weight (kg) 78.18 BMI 37.2 Weight Status Obese Subjective/Other Information MD consult for TF. ordered Nepro at 20ml/hr. Pt is on multiple pressors and in ED. Pt has dry and flakey skin on lower back and buttocks. Pt is not on the vent. Burn Absent Trauma Absent Current % PO Negligible Minimum of two criteria No physical signs of malnutrition #1 Nutrition Diagnosis Inadequate oral intake Etiology Septic shock, chroninc illness As Evidenced by Signs and Symptoms pt requiring TF Is patient on ventilator? No Is Patient Ambulatory and/or Out of Bed No REE-([facility]-confined to bed) 2330.880 Kcal/Kg value to use for calculation 15 Approximate Energy Requirements Using 1815 kcal/Kg Calculation Used for Recommendations Kcal/kg Additional Notes Protein: 80-120g/kg (0.8-1.2g/ kg using AdjBW 100kg) Fluid: 1ml/kcal or per MD Nutrition Intervention Change Diet Order: TF Nutrition Support: Nepro 1.8 at 40ml/hr Flush 170ml q4h Kcal 1,728 Protein (gm) 78 Fluid (mL) 698 Goal #1 TF tolerance Goal #2 Meet at least 80% of energy and protein needs Anticipated Discharge Needs: unable to determine at this time Follow-Up By: 03/20/20 Additional Comments F/U for TF tolerance, K, phos
--- NOTE | 2020-03-19 09:39 | Progress Note ---
Assessment and Plan Acute renal failure likely due to ischemic ATN Metabolic encphalopathy Metabolic acidosis Sepsis Hypokalemia Hypomagnesemia Hypoalbuminemia Anemia Bicarb improving, dec bicarb drip to 100 mls/hr On pressors s/p IJ Vascath by Vascular Surgery. Acidosis better, on 2 pressors, no emergent HD indication right now Ordered Albumin 25% 100 mls q6H X 4 doses to boast up BP Has weldon urine lytes, protein ordered renally dose meds strict I&O daily weight Critical Care time: 35 minutes Dejuan Toledo MD [phone] Subjective Date of service: 03/19/20 Principal diagnosis: Acute hypoxemic respiratory failure; Septic shock; Ac. encephalopathy; ALEJANDRO Interval history: On Pressors. In ICU. Objective - Exam Narrative Exam: General appearance: Lethargic EENT: ATNC, PERRL, mucous membranes dry Neck: Present: neck supple Respiratory: Decreased Breath Sounds Heart: tachycardia Gastrointestinal: Absent: tenderness, distended Integumentary: no rash, warm and dry Neurologic: lethargic Musculoskeletal: 2-3+ BLE edema Psychiatric: Lethargic - Vital Signs Vital signs: Vital Signs - 12hr 03/18/20 03/18/20 03/18/20 22:45 23:00 23:15 Temperature Pulse Rate 77 76 77 Respiratory 17 21 14 Rate Blood Pressure 107/56 106/64 107/56 O2 Sat by Pulse 95 96 97 Oximetry 03/18/20 03/18/20 03/18/20 23:30 23:45 23:52 Temperature Pulse Rate 75 80 79 Respiratory 15 12 21 Rate Blood Pressure 126/66 126/66 126/66 O2 Sat by Pulse 96 98 97 Oximetry 03/19/20 03/19/20 03/19/20 00:00 00:15 00:21 Temperature Pulse Rate 75 74 77 Respiratory 21 20 16 Rate Blood Pressure 131/71 131/71 131/71 O2 Sat by Pulse 96 97 97 Oximetry 03/19/20 03/19/20 03/19/20 00:30 04:00 04:30 Temperature 98.0 F Pulse Rate 78 81 Respiratory 21 Rate Blood Pressure 138/72 O2 Sat by Pulse 94 Oximetry 03/19/20 03/19/20 03/19/20 04:46 04:57 05:00 Temperature Pulse Rate 82 178 H 133 H Respiratory 24 Rate Blood Pressure 125/62 138/72 138/72 O2 Sat by Pulse 95 Oximetry 03/19/20 03/19/20 05:15 08:12 Temperature Pulse Rate 80 Respiratory 37 H 29 H Rate Blood Pressure 41/23 O2 Sat by Pulse 96 Oximetry - Lab 03/19/20 05:10 03/19/20 10:00 Most recent lab results ABG pH 7.309 pH Units (7.350-7.450) L 03/19/20 04:10 ABG pCO2 36.5 mm Hg 03/19/20 04:10 ABG pO2 69.4 mm Hg (80.0-90.0) L 03/19/20 04:10 ABG HCO3 17.9 mmol/L (20.0-26.0) L 03/19/20 04:10 ABG O2 Saturation 92.4 % (95.0-99.0) L 03/19/20 04:10 Calcium TNR 03/19/20 05:10 Phosphorus 5.60 mg/dL (2.5-4.5) H 03/19/20 05:10 Magnesium 1.40 mg/dL (1.7-2.3) L 03/18/20 04:40 Urine Creatinine 139.3 mg/dL (0.1-20.0) H 03/17/20 Unknown Urine Sodium 53 mmol/L 03/17/20 Unknown Urine Total Protein 328 mg/dL (5-11.8) H 03/17/20 Unknown Medications & Allergies - Medications Allergies/Adverse Reactions: Allergies diclofenac [Diclofenac] Allergy (Verified 10/05/18 08:11) Rash Home Medications: Home Medications Medication Instructions Recorded Confirmed Last Taken Type Acetaminophen [Acetaminophen TAB] 650 mg PO Q4H PRN #1 tablet 02/28/17 03/19/20 Unknown Rx Aspirin [Aspirin BABY CHEW TAB] 81 mg PO DAILY #1 tab.chew 02/28/17 03/19/20 Unknown Rx Ferrous Sulfate [Feosol 325 MG tab] 325 mg PO QDAY #1 tablet 02/28/17 03/19/20 Unknown Rx Gabapentin 300 mg PO Q8HR #1 capsule 02/28/17 03/19/20 Unknown Rx Ondansetron [Zofran INJ] 4 mg IV Q8H PRN #1 vial 02/28/17 03/19/20 Unknown Rx amLODIPine 10 mg PO DAILY #1 tablet 02/28/17 03/19/20 Unknown Rx Ertapenem [INVanz] 1 gm IV QDAY vial 03/10/20 03/19/20 Unknown Rx Active Medications: Generic Name Dose Route Start Last Admin Trade Name Freq PRN Reason Stop Dose Admin Acetaminophen 650 mg 03/16/20 17:30 Tylenol PO Q6H PRN Pain, Mild (1-3) Albumin Human 25 gm 03/18/20 18:00 03/19/20 09:00 Alburx 25% (Albumin) IV 03/19/20 12:01 Not Given Q6H IDRIS Albuterol 2.5 mg 03/16/20 17:00 Proventil IH Q3HRT PRN Shortness Of Breath Lipase/Protease/Amylase 1 each 03/17/20 17:12 Pancreaze 10,500 Unit FEEDTUBE PRN PRN For Clogged Feeding Tube Famotidine 20 mg 03/18/20 10:00 03/18/20 10:31 Pepcid IV 20 mg DAILY IDRIS Administration Heparin Sodium (Porcine) 5,000 unit 03/16/20 22:00 03/18/20 22:50 Heparin SUB-Q 5,000 unit Q12HR IDRIS Administration Hydromorphone HCl 0.25 mg 03/16/20 17:30 Dilaudid IV Q4H PRN Pain, Moderate (4-6) Vasopressin 20 unit/ Sodium 101 mls @ 9.09 mls/hr 03/16/20 20:00 03/19/20 06:29 Chloride IV 0.03 units/min TITR IDRIS 9.09 mls/hr Administration Protocol 0.03 UNITS/MIN Norepinephrine 8 mg/ Sodium 250 mls @ 3.75 mls/hr 03/16/20 23:00 03/19/20 08:05 Chloride IV 6 mcg/min TITR IDRIS 11.25 mls/hr Titration Protocol 2 MCG/MIN Epinephrine 8 mg/ Sodium 250 mls @ 3.75 mls/hr 03/17/20 04:00 03/19/20 09:06 Chloride IV 0 mcg/min TITR IDRIS 0 mls/hr Titration Protocol 2 MCG/MIN MEROPENEM/NS 1 GRAM/100 ML 1 gram in 100 mls @ 100 mls/hr 03/17/20 12:00 03/18/20 10:32 Merrem/Ns 1 Gram/100 Ml IV 100 mls/hr Q24HR IDRIS Administration Protocol Sodium Bicarbonate 150 meq/ 1,150 mls @ 100 mls/hr 03/19/20 09:00 Sterile Water IV DIRECT IDRIS Insulin Glargine 20 units 03/18/20 22:00 03/18/20 22:51 Lantus SUB-Q 20 units QHS IDRIS Administration Insulin Human Lispro 0 unit 03/18/20 12:00 03/19/20 06:52 Humalog SUB-Q 10 unit Q6HR IDRIS Administration Protocol Methylprednisolone Sodium Succinate 40 mg 03/16/20 22:00 03/19/20 06:30 Solu-Medrol IV 40 mg Q8HR IDRIS Administration Simple Syrup 15 ml 03/17/20 17:12 Simple Syrup FEEDTUBE PRN PRN Hypoglycemia Simple Syrup 30 ml 03/17/20 17:12 Simple Syrup FEEDTUBE PRN PRN Hypoglycemia Sodium Bicarbonate 325 mg 03/17/20 17:12 Sodium Bicarbonate FEEDTUBE PRN PRN For Clogged Feeding Tube Sodium Bicarbonate 1,300 mg 03/18/20 14:00 03/19/20 08:01 Sodium Bicarbonate PO Not Given QID IDRIS Sodium Chloride 10 ml 03/16/20 22:00 03/18/20 23:16 Sodium Chloride Flush Syringe 10 Ml IV 10 ml BID IDRIS Administration Sodium Chloride 10 ml 03/16/20 17:00 Sodium Chloride Flush Syringe 10 Ml IV PRN PRN LINE FLUSH
--- NOTE | 2020-03-19 10:06 | XRay Report ---
CHEST 1 VIEW [id number] INDICATION / CLINICAL INFORMATION: volume status COMPARISON: 03/17/2020 FINDINGS: SUPPORT DEVICES: A right-sided PICC is now seen with tip in the area of the atrial caval junction. Na sogastric tube now extends well below the diaphragm. HEART / MEDIASTINUM: Stable LUNGS / PLEURA: Moderate left pleural effusion is again seen with associated infiltrate and atelectas is in the left base. Mild atelectasis continues in the right base. A slightly congested appearance is noted. No pneumothorax. ADDITIONAL FINDINGS: No significant additional findings. Signer Name: Ricardo Myrick MD Signed: 03/19/2020 10:02 AM Workstation Name: [id number]
[2020-03-19] MEDS: FAMOTIDINE 20 MG/2 ML INJ IV SCH (10:19)
[2020-03-19] MEDS: HEPARIN 5,000 UNIT/1 ML VIAL SUB-Q SCH ×2 (10:19→21:09)
[2020-03-19] MEDS: MEROPENEM/NS 1 GRAM/100 ML 1 GRAM/100 ML BAG IV SCH (10:33)
[2020-03-19 10:56] LABS: Calcium 7.9 mg/dL (8.4-10.2)
--- NOTE | 2020-03-19 12:39 | Operative Report ---
Operative Report Operative Report: Exam: Ultrasound-guided placement of Vas-Cath Clinical indication: Patient with a history of sepsis, acute renal failure and volume overload requiring access for hemodialysis Date: 03/19/2020 Procedure: Following an explanation of the risks, benefits and alternatives; written informed consent was obtained from the patient's son by telephone secondary to the patient's altered mental status. The procedure was performed at bedside in the ICU. Initial ultrasound of the patient's groin demonstrated significant amounts of redundant soft tissue. The common femoral vein is patent. There is a widely patent greater saphenous vein on the right as well. The patient's right groin and right leg were prepped and draped in the usual sterile fashion. 1% lidocaine was used for anesthesia. Under ultrasound guidance, the right greater saphenous vein was cannulated with a 7 cm 18-gauge needle. The guidewire was advanced through the needle and visualized under ultrasound extending into the common femoral vein and above. The needle was removed and following serial dilation over the guidewire, a 30 cm dialysis catheter with the pigtail was advanced over the guidewire centrally easily. The guidewire was removed. Nonpulsatile blood return from all 3 ports. The catheter was flushed and locked with sterile saline. The catheter was securely fastened to the skin surface using 2-0 nylon suture and a sterile dressing applied. The patient tolerated the procedure well. There were no immediate postprocedure complications. Sedation was not utilized secondary to patient's altered mental status. Impression: Ultrasound-guided placement of 30 cm Vas-Cath via the right greater saphenous vein with ultrasound visualization of extension of the wire into the common femoral vein.
[2020-03-19 13:51] LABS: INR 1.18 (0.87-1.13)
--- NOTE | 2020-03-19 14:44 | Progress Note ---
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 Avoid hypoglycemia ABG and CXR as clinically indicated Continue Sepsis protocol -CBC, CMP, IV fluid resuscitation therapy, IV antibiotic therapy, serial lactic acid level, -IV pressor support to maintain mean arterial blood pressure greater than or equal to 65, blood cultures. Wean vasopressor support for MAP >65 Continue Cunningham catheter for accurate Is and Os- minimal urine output Continue with NIPPV as tolerated, low threshold to intubate Avoid nephrotoxins, adjust all medications and antibiotics for GFR and CrCL VTE prophylaxis Mobility, off loading, frequent turning to prevent further pressure ulcers Passive warming Antibiotics- continue per ID recommendations Contact isolation per facility protocol for MDRO Volume resuscitation while monitoring respiratory status closely CONDITION: CRITICAL PROGNOSIS: GUARDED MEDICAL DECISON MAKING- HIGH COMPLEXITY CODE STATUS: FULL CODE The high probability of a clinically significant, sudden or life threatening deterioration of the [Respiratory, cardiovascular & neurological] system(s) required my full and direct attention, intervention and personal management. The aggregate critical care time was [35 ] minutes without overlap. Time includes spent on [x] Data Review and interpretation [x] Patient assessment and monitoring of vital signs [x] Documentation [x] Medication orders and management Subjective Date of service: 03/19/20 Principal diagnosis: Acute hypoxemic respiratory failure; Septic shock; Ac. encephalopathy; ALEJANDRO Interval history: Patient is seen today for: Acute hypoxemic respiratory failure; Septic shock; Acute Toxic metabolic encephalopathy; ALEJANDRO; PUI COVID-19; Sacral decubitus ulcer; h/o VTE; Hypothermia; Obesity; Adult FTT Seen and examined at bedside; 24hour events reviewed; nursing and respiratory care staff consulted; no adverse overnight events reported to me; resting in bed; AMS is persistent; Levophed at 8mcg; no emesis or overt aspiration, on bicarbonate infusion at 150mEq, remains on BIPAP support. Has a Cunningham-remains anuric, FMS in place. On Meropenem and puse dosing Vancomycin. No fevers, hypotenrmi with a bear hugger for passive warming on BIPAP 16/6, FIO2 30% ABG 7.196/37/64/141. Objective Vital Signs - 12hr 03/19/20 03/19/20 03/19/20 04:00 04:30 04:46 Temperature 98.0 F Pulse Rate 81 82 Respiratory 24 Rate Blood Pressure 125/62 O2 Sat by Pulse 95 Oximetry 03/19/20 03/19/20 03/19/20 04:57 05:00 05:15 Temperature Pulse Rate 178 H 133 H Respiratory 37 H Rate Blood Pressure 138/72 138/72 41/23 O2 Sat by Pulse Oximetry 03/19/20 03/19/20 03/19/20 08:00 08:12 09:00 Temperature Pulse Rate 80 80 87 Respiratory 29 H Rate Blood Pressure O2 Sat by Pulse 95 96 Oximetry 03/19/20 03/19/20 03/19/20 10:55 11:00 11:15 Temperature Pulse Rate 80 81 80 Respiratory 19 25 H 21 Rate Blood Pressure 109/60 95/54 O2 Sat by Pulse 98 94 Oximetry 03/19/20 03/19/20 03/19/20 11:30 11:37 11:45 Temperature Pulse Rate 81 86 81 Respiratory 21 29 H 29 H Rate Blood Pressure 94/63 92/54 91/54 O2 Sat by Pulse 96 100 Oximetry 03/19/20 03/19/20 03/19/20 12:00 12:15 12:23 Temperature 98.0 F Pulse Rate 83 80 Respiratory 20 24 Rate Blood Pressure 94/64 89/55 O2 Sat by Pulse 100 100 95 Oximetry 03/19/20 03/19/20 03/19/20 12:30 12:45 13:00 Temperature Pulse Rate 79 79 80 Respiratory 21 21 20 Rate Blood Pressure 98/52 96/56 97/59 O2 Sat by Pulse 100 100 100 Oximetry 03/19/20 03/19/20 03/19/20 13:15 13:30 13:45 Temperature Pulse Rate 80 80 77 Respiratory 23 19 13 Rate Blood Pressure 110/62 105/66 99/63 O2 Sat by Pulse 100 96 97 Oximetry 03/19/20 03/19/20 03/19/20 14:01 14:15 14:18 Temperature Pulse Rate 80 81 75 Respiratory 18 15 27 H Rate Blood Pressure 56/36 53/31 101/53 O2 Sat by Pulse 90 99 100 Oximetry 03/19/20 14:30 Temperature Pulse Rate 77 Respiratory 23 Rate Blood Pressure 99/58 O2 Sat by Pulse 100 Oximetry Constitutional: appears uncomfortable, other (elderly obese male with increased respiratory effort at rest on BIPAP FFM ) Eyes: non-icteric ENT: oropharynx dry, other (right nares NGT) Neck: supple, no JVD, other (large neck circumference) Effort: mildly labored Ascultation: Bilateral: clear, diminished breath sounds, rhonchi (scant RLL) Percussion: Bilateral: not dull Cardiovascular: other (S1,S2, Tachycardia, hypotension on Vasopressor) Gastrointestinal: normoactive bowel sounds, soft, non-tender, non-distended (protuberant) Integumentary: rash (Generalized skin flaking/with superficial skin sloughing without erythema or warmth on chest wall), decubitus ulcer (see RN/WCN notes for details) Extremities: pulses normal, cool, other (LUExt midline, RUext PICC line) Neurologic: pupils equal and round, unable to assess Psychiatric: other (unable to assess re: AMS) CBC and BMP: 03/24/20 05:19 03/24/20 05:19 ABG, PT/INR, D-dimer: ABG ABG pH 7.309 pH Units (7.350-7.450) L 03/19/20 04:10 POC ABG pCO2 37.3 mmHg (32.0-48.0) 03/18/20 12:14 ABG pCO2 36.5 mm Hg 03/19/20 04:10 POC ABG pO2 67.4 mmHg (83-108) L 03/18/20 12:14 ABG pO2 69.4 mm Hg (80.0-90.0) L 03/19/20 04:10 POC ABG HCO3 14.1 03/18/20 12:14 ABG O2 Saturation 92.4 % (95.0-99.0) L 03/19/20 04:10 PT/INR, D-dimer PT 15.3 Sec. (12.2-14.9) H 03/19/20 Unknown INR 1.18 (0.87-1.13) H 03/19/20 Unknown Abnormal lab findings: Abnormal Labs 03/16/20 03/16/20 03/16/20 14:22 14:22 14:23 WBC 32.2 H RBC 2.93 L Hgb 8.9 L Hct 28.2 L MCV 96 H MCHC RDW 18.1 H Seg Neuts % (Manual) 82.0 H Lymphocytes % (Manual) 10.0 L Nucleated RBC % 3.0 H Seg Neutrophils # Man 26.4 H Lymphocytes # (Manual) Monocytes # (Manual) 1.9 H PT INR APTT ABG pH POC ABG pO2 ABG pO2 ABG HCO3 ABG O2 Saturation ABG Base Excess ABG Hemoglobin ABG Potassium ABG Chloride ABG Glucose Oxyhemoglobin Potassium 3.3 L Chloride 108.9 H Carbon Dioxide 12 L BUN 59 H Creatinine 5.9 H Glucose 142 H POC Glucose Calcium 7.7 L Phosphorus Magnesium Alkaline Phosphatase 224 H Total Creatine Kinase Troponin T 0.033 H Total Protein 5.4 L Albumin 1.9 L LDL Cholesterol Direct 35 L HDL Cholesterol 37 L Arterial Blood Glucose Arterial Blood Ionized Calcium Urine WBC (Auto) Urine Creatinine Urine Total Protein 03/16/20 03/16/20 03/16/20 14:27 19:50 21:15 WBC RBC Hgb Hct MCV MCHC RDW Seg Neuts % (Manual) Lymphocytes % (Manual) Nucleated RBC % Seg Neutrophils # Man Lymphocytes # (Manual) Monocytes # (Manual) PT 17.2 H INR 1.37 H APTT 51.3 H ABG pH POC ABG pO2 ABG pO2 ABG HCO3 ABG O2 Saturation ABG Base Excess ABG Hemoglobin ABG Potassium ABG Chloride ABG Glucose Oxyhemoglobin Potassium Chloride Carbon Dioxide BUN Creatinine Glucose POC Glucose Calcium Phosphorus Magnesium Alkaline Phosphatase Total Creatine Kinase Troponin T 0.031 H Total Protein Albumin LDL Cholesterol Direct HDL Cholesterol Arterial Blood Glucose Arterial Blood Ionized Calcium Urine WBC (Auto) > 182.0 H Urine Creatinine Urine Total Protein 03/16/20 03/17/20 03/17/20 22:25 11:13 11:13 WBC 34.4 H RBC 2.60 L Hgb 7.8 L Hct 25.2 L MCV 97 H MCHC 31 L RDW 18.7 H Seg Neuts % (Manual) 88.0 H Lymphocytes % (Manual) 1.0 L Nucleated RBC % 13.0 H Seg Neutrophils # Man 30.3 H Lymphocytes # (Manual) 0.3 L Monocytes # (Manual) PT INR APTT ABG pH POC ABG pO2 ABG pO2 ABG HCO3 ABG O2 Saturation ABG Base Excess ABG Hemoglobin ABG Potassium ABG Chloride ABG Glucose Oxyhemoglobin Potassium 3.3 L Chloride 108.5 H Carbon Dioxide 16 L BUN 57 H Creatinine 5.5 H Glucose 325 H POC Glucose Calcium 7.0 L Phosphorus Magnesium Alkaline Phosphatase Total Creatine Kinase Troponin T 0.047 H D Total Protein Albumin LDL Cholesterol Direct HDL Cholesterol Arterial Blood Glucose Arterial Blood Ionized Calcium Urine WBC (Auto) Urine Creatinine Urine Total Protein 03/17/20 03/17/20 03/17/20 11:13 11:40 Unknown WBC RBC Hgb Hct MCV MCHC RDW Seg Neuts % (Manual) Lymphocytes % (Manual) Nucleated RBC % Seg Neutrophils # Man Lymphocytes # (Manual) Monocytes # (Manual) PT INR APTT ABG pH 7.229 L POC ABG pO2 ABG pO2 98.3 H ABG HCO3 14.6 L ABG O2 Saturation ABG Base Excess -12.0 L ABG Hemoglobin 8.9 L ABG Potassium ABG Chloride ABG Glucose Oxyhemoglobin Potassium Chloride Carbon Dioxide BUN Creatinine Glucose POC Glucose Calcium Phosphorus Magnesium Alkaline Phosphatase Total Creatine Kinase 373 H Troponin T Total Protein Albumin LDL Cholesterol Direct HDL Cholesterol Arterial Blood Glucose Arterial Blood Ionized Calcium Urine WBC (Auto) > 182.0 H Urine Creatinine Urine Total Protein 03/17/20 03/18/20 03/18/20 Unknown 04:40 04:40 WBC 32.0 H RBC 2.56 L Hgb 7.9 L Hct 24.7 L MCV 96 H MCHC RDW 18.2 H Seg Neuts % (Manual) Lymphocytes % (Manual) Nucleated RBC % Seg Neutrophils # Man Lymphocytes # (Manual) Monocytes # (Manual) PT INR APTT ABG pH POC ABG pO2 ABG pO2 ABG HCO3 ABG O2 Saturation ABG Base Excess ABG Hemoglobin ABG Potassium ABG Chloride ABG Glucose Oxyhemoglobin Potassium 2.7 L* Chloride 111.8 H Carbon Dioxide 12 L BUN 56 H Creatinine 4.6 H Glucose 347 H POC Glucose Calcium 6.7 L Phosphorus 5.40 H Magnesium Alkaline Phosphatase Total Creatine Kinase Troponin T Total Protein Albumin LDL Cholesterol Direct HDL Cholesterol Arterial Blood Glucose Arterial Blood Ionized Calcium Urine WBC (Auto) Urine Creatinine 139.3 H Urine Total Protein 328 H 03/18/20 03/18/2020 04:40 04:48 12:14 WBC RBC Hgb Hct MCV MCHC RDW Seg Neuts % (Manual) Lymphocytes % (Manual) Nucleated RBC % Seg Neutrophils # Man Lymphocytes # (Manual) Monocytes # (Manual) PT INR APTT ABG pH 7.230 L 7.196 L POC ABG pO2 67.4 L ABG pO2 91.6 H ABG HCO3 13.7 L ABG O2 Saturation ABG Base Excess -12.8 L ABG Hemoglobin 9.2 L 9.9 L ABG Potassium 3.3 L ABG Chloride 112.0 H ABG Glucose 355 H Oxyhemoglobin 94.8 L Potassium Chloride Carbon Dioxide BUN Creatinine Glucose POC Glucose Calcium Phosphorus Magnesium 1.40 L Alkaline Phosphatase Total Creatine Kinase Troponin T Total Protein Albumin LDL Cholesterol Direct HDL Cholesterol Arterial Blood Glucose 355 H Arterial Blood Ionized Calcium 4.5 L Urine WBC (Auto) Urine Creatinine Urine Total Protein 03/18/20 03/18/20 03/18/20 13:17 13:32 19:15 WBC RBC Hgb Hct MCV MCHC RDW Seg Neuts % (Manual) Lymphocytes % (Manual) Nucleated RBC % Seg Neutrophils # Man Lymphocytes # (Manual) Monocytes # (Manual) PT INR APTT ABG pH POC ABG pO2 ABG pO2 ABG HCO3 ABG O2 Saturation ABG Base Excess ABG Hemoglobin ABG Potassium ABG Chloride ABG Glucose Oxyhemoglobin Potassium 3.0 L 3.4 L Chloride 107.2 H Carbon Dioxide 14 L 13 L BUN 59 H 67 H Creatinine 4.8 H 5.1 H Glucose 341 H 371 H POC Glucose 394 H Calcium 7.0 L 7.8 L Phosphorus Magnesium Alkaline Phosphatase Total Creatine Kinase Troponin T Total Protein Albumin LDL Cholesterol Direct HDL Cholesterol Arterial Blood Glucose Arterial Blood Ionized Calcium Urine WBC (Auto) Urine Creatinine Urine Total Protein 03/18/20 03/18/20 03/19/20 19:21 23:00 01:32 EST WBC RBC Hgb Hct MCV MCHC RDW Seg Neuts % (Manual) Lymphocytes % (Manual) Nucleated RBC % Seg Neutrophils # Man Lymphocytes # (Manual) Monocytes # (Manual) PT INR APTT ABG pH POC ABG pO2 ABG pO2 ABG HCO3 ABG O2 Saturation ABG Base Excess ABG Hemoglobin ABG Potassium ABG Chloride ABG Glucose Oxyhemoglobin Potassium Chloride Carbon Dioxide BUN Creatinine Glucose POC Glucose 453 H 360 H 338 H Calcium Phosphorus Magnesium Alkaline Phosphatase Total Creatine Kinase Troponin T Total Protein Albumin LDL Cholesterol Direct HDL Cholesterol Arterial Blood Glucose Arterial Blood Ionized Calcium Urine WBC (Auto) Urine Creatinine Urine Total Protein 03/19/20 03/19/20 03/19/20 04:10 05:10 05:10 WBC 25.8 H RBC 3.61 L Hgb 10.9 L D Hct MCV 100 H MCHC 30 L RDW 19.1 H Seg Neuts % (Manual) Lymphocytes % (Manual) Nucleated RBC % Seg Neutrophils # Man Lymphocytes # (Manual) Monocytes # (Manual) PT INR APTT ABG pH 7.309 L POC ABG pO2 ABG pO2 69.4 L ABG HCO3 17.9 L ABG O2 Saturation 92.4 L ABG Base Excess -7.6 L ABG Hemoglobin 8.1 L ABG Potassium ABG Chloride ABG Glucose Oxyhemoglobin 90.8 L Potassium Chloride Carbon Dioxide BUN Creatinine Glucose POC Glucose Calcium Phosphorus 5.60 H Magnesium Alkaline Phosphatase Total Creatine Kinase Troponin T Total Protein Albumin LDL Cholesterol Direct HDL Cholesterol Arterial Blood Glucose Arterial Blood Ionized Calcium Urine WBC (Auto) Urine Creatinine Urine Total Protein 03/19/20 03/19/20 03/19/20 10:00 11:22 Unknown WBC RBC Hgb Hct MCV MCHC RDW Seg Neuts % (Manual) Lymphocytes % (Manual) Nucleated RBC % Seg Neutrophils # Man Lymphocytes # (Manual) Monocytes # (Manual) PT 15.3 H INR 1.18 H APTT ABG pH POC ABG pO2 ABG pO2 ABG HCO3 ABG O2 Saturation ABG Base Excess ABG Hemoglobin ABG Potassium ABG Chloride ABG Glucose Oxyhemoglobin Potassium 3.0 L Chloride Carbon Dioxide BUN 69 H Creatinine 5.4 H Glucose 250 H POC Glucose 274 H Calcium 7.9 L Phosphorus Magnesium Alkaline Phosphatase Total Creatine Kinase Troponin T Total Protein Albumin LDL Cholesterol Direct HDL Cholesterol Arterial Blood Glucose Arterial Blood Ionized Calcium Urine WBC (Auto) Urine Creatinine Urine Total Protein Chest x-ray: image reviewed Allied health notes reviewed: RT
[2020-03-19] MEDS: SODIUM BICARBONATE 150 MEQ in WATER FOR INJECTION (PF) 1,000 ML IV SCH (14:56)
[2020-03-19] MEDS ORDERED: ACETAMINOPHEN 325 MG TAB FEEDTUBE PRN (18:15)
[2020-03-19] MEDS: ACETAMINOPHEN 325 MG/10.15 ML ORAL LIQD UNIT DOSE FEEDTUBE PRN (18:39)
[2020-03-19] MEDS: INSULIN GLARGINE 100 UNITS/ML SUB-Q SCH (21:08)
[2020-03-20] MEDS: INSULIN LISPRO 100 UNIT/ML VIAL 3 mL SUB-Q SCH ×4 (01:05→17:36)
[2020-03-20] MEDS: SODIUM BICARBONATE 150 MEQ in WATER FOR INJECTION (PF) 1,000 ML IV SCH (02:35)
[2020-03-20] MEDS: VASOPRESSIN 20 UNIT in SODIUM CHLORIDE 0.9% 100 ML IV SCH (04:41)
[2020-03-20 07:07] LABS: Hematocrit 23.3 % (35.5-45.6); Hemoglobin 7.9 gm/dl (11.8-15.2); Mean Corpuscular HGB Conc 34 % (32-34); Mean Corpuscular Volume 91 fl (84-94); Platelet Count 142 K/mm3 (140-440); Red Blood Count 2.57 M/mm3 (3.65-5.03); Red Cell Distribution Width 17.7 % (13.2-15.2)
[2020-03-20 07:26] LABS: Calcium 8.2 mg/dL (8.4-10.2)
--- NOTE | 2020-03-20 07:45 | Progress Note ---
Assessment and Plan Assessment and plan: Patient is a 79-year-old male with a past medical history of encephalopathy, hypertension, generalized weakness, diabetes type 2, chronic lipidemia, DVT, respiratory failure with hypoxia, CVA, and CKD presents from [facility] with complaint of sepsis with hypotension, alteration mental status, and her labs collected yesterday that resulted today showing a WBC count of 36. Of note patient was recently discharged from the hospital with ertapenem 1 g IV daily ESBL E. coli bacteremia with started on March 11 with plan in date March 21 via PICC line Patient unfortunately continues to worsen despite antibiotic treatment is nonverbal not able to follow any commands and now experiencing multiorgan failure. intermediate vital signs BP of 66/36, heart rate 62, respiratory rate 16, blood glucose 230, and patient presents on 3 L of nasal cannula oxygen satting 98% Patient had a negative Covid test during admission here March 02. 03/17 Patient also found to have acute kidney injury with acute tubular necrosis, toxic metabolic encephalopathy, metabolic acidosis and hypothermia. The patient is critically ill with a poor prognosis, sepsis protocol was initiated with an ICU admission. Patient was seen by shallot cleaner pressors were increased with also bicarb drip started. Unfortunately bicarb drip had to be held due to PICC line compatibility. A new PICC line has been inserted this morning. Admitting physician did speak with the son and discussed prognosis. I did also call the son this morning who informs me that the brother who is physician is coming into town and will give us further recommendation on arrival. Patient has been started on a third pressor which is epinephrine at this time. To my examination awaiting nephrology evaluation. We will proceed with giving clint tional 2 L of fluids and also obtain a stat echocardiogram to see what patient's cardiac level is. Based on ejection fraction patient may benefit from dobutamine. Will place BiPAP on standby and if need be and family does not opposed to continued full code we will proceed with likely intubation so the patient can be adequately volume resuscitated. -Continue empiric antibiotic coverage. ID consultation. Critical care assistance and input noted. Fluid Resuscitation As Noted above Continue Diet. Change IV access for triple-lumen PICC line. Will follow cultures. We will also obtain wound care consultation. 03/18: Continue current management, may need dialysis but not a candidate for HD due to 3 Pressors. NO Diarrhea at this time. If not improving respiratory lopez may need Intubation. 03/19: Continue supportive care, mental status showing some improvement, still on BIPAP. BP improving will stop Epi and bring down to 2 pressors. Awaiting ECHO. IF continues to have worsening Renal function, May need transfer to [facility] if unable to perform HD. Patients son updated of current clinically status. 03/20: Right femoral catheter-vas cath Placed for HD. Hypokalemia to be corrected, will give Potassium 20meq. Continue IV abx, no growth so far noted, wean pressors as tolerated, may consider adding Midodrine. WBC trending down. Prior noted Ecoli Bactermia is not noted so far on the blood culture. Continue HD as tolerated, Sodium bicarb drip due to acidosis. Septic shock, Severe sepsis, Anemia OF Chronic Disease Hypokalemia Acute renal failure likely due to ischemic ATN Metabolic Acidosis Acute Hypoxic Respiratory failure. Azotemia Acute toxic metabolic encephalopathy Ruled out COVID-19 Hypothermia Metabolic acidosis The high probability of a clinically significant, sudden or life threatening deterioration of the [multiple organ] system(s) required my full and direct attention, intervention and personal management. The aggregate critical care time was [35] minutes. This time is in addition to time spent performing reported procedures but includes the following: [X] Data Review and interpretation [X] Patient assessment and monitoring of vital signs [X] Documentation [X] Medication orders and management History Interval history: Patient seen and examined remains critically ill, Remains on BIPAP Hospitalist Physical - Physical exam Narrative exam: VITAL SIGNS: Reviewed. GENERAL: The patient critically ill, vital signs as documented. Morbidly obese patient is on BIPAP, following some command HEAD: No signs of head trauma. EYES: Pupils are equal. EARS: Unable to examine this patient following any commands MOUTH: Oropharynx is normal otherwise dry. NECK: No adenopathy, no JVD. CHEST: Chest with diminished breath sounds bilaterally. No wheezes, rales, or rhonchi. CARDIAC: Regular rate and rhythm. S1 and S2, without murmurs, gallops, or rubs. VASCULAR: chronic Edema. Peripheral pulses normal and equal in all extremities. ABDOMEN: Soft, non tender and non distended. No rebound or guarding, and no masses palpated. Bowel Sounds normal. MUSCULOSKELETAL: Chronic venous changes bilateral lower ext NEUROLOGIC EXAM: Nonresponsive not following commands opens eyes otherwise PSYCHIATRIC: Unable to examine SKIN: Multiple excoriations multiple pressure ulcers, detail exam as documented in skin assessment - Constitutional Vitals: Temp Pulse Resp BP Pulse Ox 97.0 F L 77 14 111/56 100 03/20/20 04:00 03/20/20 06:31 03/20/20 06:31 03/20/20 06:31 03/20/20 06:31 General appearance: Present: severe distress HEART Score - HEART Score Troponin: Troponin T 0.047 ng/mL (0.00-0.029) H D 03/16/20 22:25 Results - Labs CBC & Chem 7: 03/20/20 06:35 03/20/20 06:35 Labs: Laboratory Last Values WBC 27.5 K/mm3 (4.5-11.0) H 03/20/20 06:35 RBC 2.57 M/mm3 (3.65-5.03) L 03/20/20 06:35 Hgb 7.9 gm/dl (11.8-15.2) L D 03/20/20 06:35 Hct 23.3 % (35.5-45.6) L D 03/20/20 06:35 MCV 91 fl (84-94) 03/20/20 06:35 MCH 31 pg (28-32) 03/20/20 06:35 MCHC 34 % (32-34) 03/20/20 06:35 RDW 17.7 % (13.2-15.2) H 03/20/20 06:35 Plt Count 142 K/mm3 (140-440) 03/20/20 06:35 Add Manual Diff Complete 03/17/20 11:13 Total Counted 100 03/17/20 11:13 Seg Neutrophils % Reimbursement Representative 03/17/20 11:13 Seg Neuts % (Manual) 88.0 % (40.0-70.0) H 03/17/20 11:13 Band Neutrophils % 6.0 % 03/17/20 11:13 Lymphocytes % (Manual) 1.0 % (13.4-35.0) L 03/17/20 11:13 Reactive Lymphs % (Man) 0 % 03/17/20 11:13 Monocytes % (Manual) 2.0 % (0.0-7.3) 03/17/20 11:13 Eosinophils % (Manual) 0 % (0.0-4.3) 03/17/20 11:13 Basophils % (Manual) 0 % (0.0-1.8) 03/17/20 11:13 Metamyelocytes % 3.0 % 03/17/20 11:13 Myelocytes % 0 % 03/17/20 11:13 Promyelocytes % 0 % 03/17/20 11:13 Blast Cells % 0 % 03/17/20 11:13 Nucleated RBC % 13.0 % (0.0-0.9) H 03/17/20 11:13 Seg Neutrophils # Man 30.3 K/mm3 (1.8-7.7) H 03/17/20 11:13 Band Neutrophils # 2.1 K/mm3 03/17/20 11:13 Lymphocytes # (Manual) 0.3 K/mm3 (1.2-5.4) L 03/17/20 11:13 Abs React Lymphs (Man) 0.0 K/mm3 03/17/20 11:13 Monocytes # (Manual) 0.7 K/mm3 (0.0-0.8) 03/17/20 11:13 Eosinophils # (Manual) 0.0 K/mm3 (0.0-0.4) 03/17/20 11:13 Basophils # (Manual) 0.0 K/mm3 (0.0-0.1) 03/17/20 11:13 Metamyelocytes # 1.0 K/mm3 03/17/20 11:13 Myelocytes # 0.0 K/mm3 03/17/20 11:13 Promyelocytes # 0.0 K/mm3 03/17/20 11:13 Blast Cells # 0.0 K/mm3 03/17/20 11:13 Pathologist Review 03/16/20 14:22 WBC Morphology Not Reportable 03/17/20 11:13 Hypersegmented Neuts Not Reportable 03/17/20 11:13 Hyposegmented Neuts Not Reportable 03/17/20 11:13 Hypogranular Neuts Not Reportable 03/17/20 11:13 Smudge Cells Not Reportable 03/17/20 11:13 Toxic Granulation Not Reportable 03/17/20 11:13 Toxic Vacuolation Not Reportable 03/17/20 11:13 Dohle Bodies Not Reportable 03/17/20 11:13 Pelger-Huet Anomaly Not Reportable 03/17/20 11:13 Santiago Rods Not Reportable 03/17/20 11:13 Platelet Estimate Consistent w auto 03/17/20 11:13 Clumped Platelets Rare 03/17/20 11:13 Plt Clumps, EDTA Not Reportable 03/17/20 11:13 Large Platelets Not Reportable 03/17/20 11:13 Giant Platelets Not Reportable 03/17/20 11:13 Platelet Satelliting Not Reportable 03/17/20 11:13 Plt Morphology Comment Not Reportable 03/17/20 11:13 RBC Morphology Not Reportable 03/17/20 11:13 Dimorphic RBCs Not Reportable 03/17/20 11:13 Polychromasia Not Reportable 03/17/20 11:13 Hypochromasia Not Reportable 03/17/20 11:13 Poikilocytosis Not Reportable 03/17/20 11:13 Anisocytosis 2+ 03/17/20 11:13 Microcytosis Few 03/17/20 11:13 Macrocytosis 1+ 03/17/20 11:13 Spherocytes Not Reportable 03/17/20 11:13 Pappenheimer Bodies Not Reportable 03/17/20 11:13 Sickle Cells Not Reportable 03/17/20 11:13 Target Cells Not Reportable 03/17/20 11:13 Tear Drop Cells Not Reportable 03/17/20 11:13 Ovalocytes Not Reportable 03/17/20 11:13 Helmet Cells Not Reportable 03/17/20 11:13 Smith-Byers Bodies Not Reportable 03/17/20 11:13 [place] Rings Not Reportable 03/17/20 11:13 Luis Alfredo Cells Not Reportable 03/17/20 11:13 Bite Cells Not Reportable 03/17/20 11:13 Crenated Cell Not Reportable 03/17/20 11:13 Elliptocytes Not Reportable 03/17/20 11:13 Acanthocytes (Spur) Not Reportable 03/17/20 11:13 Rouleaux Not Reportable 03/17/20 11:13 Hemoglobin C Crystals Not Reportable 03/17/20 11:13 Schistocytes Not Reportable 03/17/20 11:13 Malaria parasites Not Reportable 03/17/20 11:13 Isauro Bodies Not Reportable 03/17/20 11:13 Hem Pathologist Commnt No 03/17/20 11:13 PT 15.3 Sec. (12.2-14.9) H 03/19/20 Unknown INR 1.18 (0.87-1.13) H 03/19/20 Unknown APTT 51.3 Sec. (24.2-36.6) H 03/16/20 14:27 ABG pH 7.309 pH Units (7.350-7.450) L 03/19/20 04:10 POC ABG pCO2 37.3 mmHg (32.0-48.0) 03/18/20 12:14 ABG pCO2 36.5 mm Hg 03/19/20 04:10 POC ABG pO2 67.4 mmHg (83-108) L 03/18/20 12:14 ABG pO2 69.4 mm Hg (80.0-90.0) L 03/19/20 04:10 POC ABG HCO3 14.1 03/18/20 12:14 ABG HCO3 17.9 mmol/L (20.0-26.0) L 03/19/20 04:10 ABG O2 Saturation 92.4 % (95.0-99.0) L 03/19/20 04:10 ABG O2 Content 10.4 (0.0-44) 03/19/20 04:10 POC ABG Base Excess -13.0 03/18/20 12:14 ABG Base Excess -7.6 mmol/L (-2.0-3.0) L 03/19/20 04:10 ABG Hemoglobin 8.1 gm/dl (14.0-18.0) L 03/19/20 04:10 ABG Carboxyhemoglobin 1.2 % (0.0-5.0) 03/19/20 04:10 ABG Methemoglobin 0.5 % (0.0-1.5) 03/19/20 04:10 ABG Sodium 138.8 mmol/L (136.0-145.0) 03/18/20 12:14 ABG Potassium 3.3 mmol/L (3.40-4.50) L 03/18/20 12:14 ABG Chloride 112.0 mmol/L (98-107) H 03/18/20 12:14 ABG Glucose 355 mg/dL (65-95) H 03/18/20 12:14 Oxyhemoglobin 90.8 % (95.0-99.0) L 03/19/20 04:10 FiO2 50 % 03/19/20 04:10 Sodium 145 mmol/L (137-145) 03/20/20 06:35 Potassium 2.9 mmol/L (3.6-5.0) L* 03/20/20 06:35 Chloride 102.7 mmol/L (98-107) 03/20/20 06:35 Carbon Dioxide 22 mmol/L (22-30) 03/20/20 06:35 Anion Gap 23 mmol/L 03/20/20 06:35 BUN 69 mg/dL (9-20) H 03/20/20 06:35 Creatinine 5.1 mg/dL (0.8-1.3) H 03/20/20 06:35 Estimated GFR 13 ml/min 03/20/20 06:35 BUN/Creatinine Ratio 14 % 03/20/20 06:35 Glucose 146 mg/dL (75-100) H 03/20/20 06:35 POC Glucose 181 mg/dL (70-105) H 03/20/20 05:22 Lactic Acid 1.80 mmol/L (0.7-2.0) 03/16/20 Unknown Calcium 8.2 mg/dL (8.4-10.2) L 03/20/20 06:35 Phosphorus 5.40 mg/dL (2.5-4.5) H 03/20/20 06:35 Magnesium 1.70 mg/dL (1.7-2.3) 03/20/20 06:35 Total Bilirubin 0.20 mg/dL (0.1-1.2) 03/16/20 14:22 AST 22 units/L (5-40) 03/16/20 14:22 ALT 8 units/L (7-56) 03/16/20 14:22 Alkaline Phosphatase 224 units/L (35-129) H 03/16/20 14:22 Total Creatine Kinase 373 units/L (55-170) H 03/17/20 11:13 Troponin T 0.047 ng/mL (0.00-0.029) H D 03/16/20 22:25 Total Protein 5.4 g/dL (6.3-8.2) L 03/16/20 14:22 Albumin 1.9 g/dL (3.9-5) L 03/16/20 14:22 Albumin/Globulin Ratio 0.5 % 03/16/20 14:22 Triglycerides 107 mg/dL (2-149) 03/16/20 14:23 Cholesterol 95 mg/dL (50-199) 03/16/20 14:23 LDL Cholesterol Direct 35 mg/dL (50-130) L 03/16/20 14:23 HDL Cholesterol 37 mg/dL (40-59) L 03/16/20 14:23 Cholesterol/HDL Ratio 2.56 % 03/16/20 14:23 Procalcitonin 9.59 ng/mL (<0.15) 03/17/20 18:53 Arterial Blood Glucose 355 mg/dL (65-95) H 03/18/20 12:14 Arterial Blood Ionized Calcium 4.5 mg/dL (4.6-5.3) L 03/18/20 12:14 Urine Color Shruthi (Yellow) 03/17/20 11:40 Urine Turbidity Turbid (Clear) 03/17/20 11:40 Urine pH 5.0 (5.0-7.0) 03/17/20 11:40 Ur Specific Enderlin 1.015 (1.003-1.030) 03/17/20 11:40 Urine Protein 100 mg/dl mg/dL (Negative) 03/17/20 11:40 Urine Glucose (UA) 50 mg/dL (Negative) 03/17/20 11:40 Urine Ketones Neg mg/dL (Negative) 03/17/20 11:40 Urine Blood Sm (Negative) 03/17/20 11:40 Urine Nitrite Neg (Negative) 03/17/20 11:40 Urine Bilirubin Neg (Negative) 03/17/20 11:40 Urine Urobilinogen 2.0 mg/dL (<2.0) 03/17/20 11:40 Ur Leukocyte Esterase Lg (Negative) 03/17/20 11:40 Urine WBC (Auto) > 182.0 /HPF (0.0-6.0) H 03/17/20 11:40 Urine RBC (Auto) 26.0 /HPF (0.0-6.0) 03/17/20 11:40 U Epithel Cells (Auto) 2.0 /HPF (0-13.0) 03/16/20 21:15 Urine Bacteria (Auto) 2+ /HPF (Negative) 03/17/20 11:40 Urine WBC Clumps 3+ /HPF 03/17/20 11:40 Urine Mucus 1+ /HPF 03/17/20 11:40 Urine Yeast (Budding) 2+ /HPF 03/16/20 21:15 Urine Creatinine 139.3 mg/dL (0.1-20.0) H 03/17/20 Unknown Protein/Creatinin Ratio 2.35 03/17/20 Unknown Urine Sodium 53 mmol/L 03/17/20 Unknown Urine Total Protein 328 mg/dL (5-11.8) H 03/17/20 Unknown Random Vancomycin 8.4 ug/mL (0-40.0) 03/18/20 04:40 Coronavirus (PCR) Negative (Negative) 03/17/20 09:03 Microbiology: Microbiology 03/16/20 14:15 Peripheral/Venous Blood Culture - Preliminary NO GROWTH AFTER 72 HOURS 03/16/20 14:15 Peripheral/Venous Blood Culture - Preliminary NO GROWTH AFTER 72 HOURS - Diagnostic Impressions Diagnostic Impressions: Echocardiogram 03/17/20 09:13 Transthoracic Echocardiogram Indication: Cardiogenic Shock BP: 126/62 Conclusions *Global left ventricular systolic function is normal. *Mild to moderate concentric left ventricular hypertrophy is observed. *The estimated ejection fraction is 55-60%. *The right ventricle is severely dilated. *The right ventricular global systolic function is moderately reduced. *Flattened in systole consistent with right ventricular pressure overload. *There is moderate aortic stenosis. *The mean gradient of the aortic valve is 20.93 mmHg. *Moderate aortic leaflet calcification is visualized. *There is mild aortic regurgitation. *There is mild mitral regurgitation. *There is mild tricuspid regurgitation. *The right ventricular systolic pressure is calculated at 46 mmHg. *There is trace pulmonic regurgitation. *A left pleural effusion is present. *There is no pericardial effusion. Findings Procedure Info: The study quality is good. Left Ventricle: The left ventricular chamber size is normal. Mild to moderate concentric left ventricular hypertrophy is observed. Global left ventricular systolic function is normal. The estimated ejection fraction is 55-60%. Abnormal left ventricular diastolic filling is observed, consistent with impaired relaxation. Left Atrium: The left atrium is normal in size with no visual thrombus identified. Right Ventricle: The right ventricle is severely dilated. The right ventricular global systolic function is moderately reduced. Flattened in systole consistent with right ventricular pressure overload. Right Atrium: The right atrium is moderately dilated. Aortic Valve: The aortic valve is trileaflet. Moderate aortic leaflet calcification is visualized. There is mild aortic regurgitation. There is moderate aortic stenosis. The mean gradient of the aortic valve is 20.93 mmHg. The peak instantaneous gradient of the aortic valve is 48.15 mmHg. The aortic valve area, by VTI's, is calculated at 1.781455124755 cm2. Mitral Valve: There is posterior mitral annular calcification. The mitral valve leaflets are mildly thickened. There is mild mitral regurgitation. There is no evidence of mitral stenosis. Tricuspid Valve: There is mild tricuspid regurgitation. The right ventricular systolic pressure is calculated at 46 mmHg. There is no tricuspid stenosis. Pulmonic Valve: The pulmonic valve appears normal. There is trace pulmonic regurgitation. There is no pulmonic stenosis. Pericardium: There is no pericardial effusion. A left pleural effusion is present. Aorta: The aorta appears normal. Pulmonary Artery: The main pulmonary artery appears normal. Venous: The inferior vena cava is dilated. There is less than 50% respiratory change in the inferior vena cava dimension. Measurements Chambers 2D Name Value Normal Range IVSd (2D) 1.24 cm (0.6 - 1.1) LVPWd (2D) 1.28 cm (0.6 - 1.1) LVIDd (2D) 4.39 cm (3.7 - 5.6) LVIDs (2D) 2.74 cm (2 - 3.8) LV FS (2D) 37.56 % - EF Teichholz (2D) 67.84 % - Ao root diameter (2D) 3.09 cm (2 - 3.7) Volumes/Mass Name Value Normal Range LA ESV SP 4CH (A/L) 61.48 ml - LA ESV SP 2CH (A/L) 74.82 ml - LA ESV BP (A/L) 70.19 ml - LA ESV BP (A/L) index 29.49 ml/m2 - LA ESV SP 4CH (MOD) 60.86 ml - LA ESV SP 2CH (MOD) 76.42 ml - LA ESV BP (MOD) 70.33 ml - LA ESV BP (MOD) index 29.55 ml/m2 - LV EDV SP 4CH (MOD) 54.09 ml - LV ESV SP 4CH (MOD) 19.25 ml - EF SP 4CH (MOD) 64.4 % - Diastolic/Systolic Function Name Value Normal Range MV E-wave Vmax 0.67 m/sec - MV deceleration time 137.49 msec - MV A-wave Vmax 0.88 m/sec - MV E:A ratio 0.77 ratio - Aortic Valve Name Value Normal Range AV Vmax 3.23 m/sec - AV VTI 54.14 cm - AV peak gradient 48.15 mmHg - AV mean gradient 20.93 mmHg - LVOT diameter 2.11 cm - LVOT Vmax 0.92 m/sec - LVOT VTI 17.92 cm - LVOT peak gradient 3.42 mmHg - LVOT mean gradient 1.46 mmHg - SV LVOT 62.51 ml - NAVIN (continuity Vmax) 1 cm2 - NAVIN (continuity VTI) 1.15 cm2 - AR PHT 720.82 msec - AR peak gradient 15.53 mmHg - Ascending Ao 3.71 cm - Tricuspid Valve Name Value Normal Range TV E-wave Vmax 0.51 m/sec - TR Vmax 2.8 m/sec - TR peak gradient 31.37 mmHg - RAP 15 mmHg - RVSP 46 mmHg - IVC diameter 2.4 cm (1.2 - 2.3) Pulmonic Valve/Qp:Qs Name Value Normal Range PV Vmax 1.09 m/sec - PV peak gradient 4.78 mmHg - RVOT Vmax 0.7 m/sec - RVOT VTI 13.89 cm - RVOT peak gradient 1.96 mmHg - PV acceleration time 95.15 msec - Cunningham/IV: Voiding Method Indwelling Catheter IV Catheter Type [right wrist] Peripheral IV IV Catheter Type [Right Upper PICC Line arm] IV Catheter Type [Left Upper PICC Line arm] Active Medications - Current Medications Current Medications: Generic Name Dose Route Start Last Admin Trade Name Freq PRN Reason Stop Dose Admin Acetaminophen 650 mg 03/19/20 18:21 03/19/20 18:39 Tylenol FEEDTUBE 650 mg Q6H PRN Administration Pain, Mild (1-3) Albuterol 2.5 mg 03/16/20 17:00 Proventil IH Q3HRT PRN Shortness Of Breath Lipase/Protease/Amylase 1 each 03/17/20 17:12 Pancrescooby Granger 10,500 Unit FEEDTUBE PRN PRN For Clogged Feeding Tube Famotidine 20 mg 03/18/20 10:00 03/19/20 10:19 Pepcid IV 20 mg DAILY IDRIS Administration Heparin Sodium (Porcine) 5,000 unit 03/16/20 22:00 03/19/20 21:09 Heparin SUB-Q 5,000 unit Q12HR IDRIS Administration Hydromorphone HCl 0.25 mg 03/16/20 17:30 Dilaudid IV Q4H PRN Pain, Moderate (4-6) Vasopressin 20 unit/ Sodium 101 mls @ 9.09 mls/hr 03/16/20 20:00 03/20/20 04:41 Chloride IV 0.03 units/min TITR IDRIS 9.09 mls/hr Administration Protocol 0.03 UNITS/MIN Norepinephrine 8 mg/ Sodium 250 mls @ 3.75 mls/hr 03/16/20 23:00 03/19/20 21:07 Chloride IV 8 mcg/min TITR IDRIS 15 mls/hr Administration Protocol 2 MCG/MIN Epinephrine 8 mg/ Sodium 250 mls @ 3.75 mls/hr 03/17/20 04:00 03/19/20 09:06 Chloride IV 0 mcg/min TITR IDRIS 0 mls/hr Titration Protocol 2 MCG/MIN MEROPENEM/NS 1 GRAM/100 ML 1 gram in 100 mls @ 100 mls/hr 03/17/20 12:00 03/19/20 10:33 Merrem/Ns 1 Gram/100 Ml IV 100 mls/hr Q24HR IDRIS Administration Protocol Sodium Bicarbonate 150 meq/ 1,150 mls @ 100 mls/hr 03/19/20 09:00 03/20/20 02:35 Sterile Water IV 100 mls/hr DIRECT IDRIS Administration Insulin Glargine 20 units 03/18/20 22:00 03/19/20 21:08 Lantus SUB-Q 20 units QHS IDRIS Administration Insulin Human Lispro 0 unit 03/18/20 12:00 03/20/20 01:05 Humalog SUB-Q Not Given Q6HR IDRIS Protocol Methylprednisolone Sodium Succinate 40 mg 03/16/20 22:00 03/19/20 21:08 Solu-Medrol IV 40 mg Q8HR IDRIS Administration Simple Syrup 15 ml 03/17/20 17:12 Simple Syrup FEEDTUBE PRN PRN Hypoglycemia Simple Syrup 30 ml 03/17/20 17:12 Simple Syrup FEEDTUBE PRN PRN Hypoglycemia Sodium Bicarbonate 325 mg 03/17/20 17:12 Sodium Bicarbonate FEEDTUBE PRN PRN For Clogged Feeding Tube Sodium Bicarbonate 1,300 mg 03/18/20 14:00 03/19/20 21:08 Sodium Bicarbonate PO 1,300 mg QID IDRIS Administration Sodium Chloride 10 ml 03/16/20 22:00 03/20/20 04:35 Sodium Chloride Flush Syringe 10 Ml IV Not Given BID IDRIS Sodium Chloride 10 ml 03/16/20 17:00 Sodium Chloride Flush Syringe 10 Ml IV PRN PRN LINE FLUSH Nutrition/Malnutrition Assess - Dietary Evaluation Nutrition/Malnutrition Findings: Nutrition Notes Start: 03/18/20 09:15 Freq: Status: Active Protocol: Document 03/18/20 09:15 LM (Rec: 03/18/20 09:36 LM [id number]) Nutrition Notes Need for Assessment generated from: MD Order Initial or Follow up Assessment Current Diagnosis Acute Kidney Injury,CKD(stage I-IV),Diabetes,Hypertension Other Pertinent Diagnosis Septic shock, suspected COVID- 19, debility, hypothermia, debility Current Diet Nepro at 20ml/hr Labs/Tests K 2.7 Phos 5.4 Mg 1.4 BG 347 BUN 56 Cr 4.6 Pertinent Medications KCl at 100ml/hr Solumedrol Norepinepherine Epinepherine Vasopressin Height 5 ft 11 in Weight 121 kg [place] Body Weight (kg) 78.18 BMI 37.2 Weight Status Obese Subjective/Other Information MD consult for TF. MD ordered Nepro at 20ml/hr. Pt is on multiple pressors and in ED. Pt has dry and flakey skin on lower back and buttocks. Pt is not on the vent. Burn Absent Trauma Absent Current % PO Negligible Minimum of two criteria No physical signs of malnutrition #1 Nutrition Diagnosis Inadequate oral intake Etiology Septic shock, chroninc illness As Evidenced by Signs and Symptoms pt requiring TF Is patient on ventilator? No Is Patient Ambulatory and/or Out of Bed No REE-([facility]-confined to bed) 2330.880 Kcal/Kg value to use for calculation 15 Approximate Energy Requirements Using 1815 kcal/Kg Calculation Used for Recommendations Kcal/kg Additional Notes Protein: 80-120g/kg (0.8-1.2g/ kg using AdjBW 100kg) Fluid: 1ml/kcal or per MD Nutrition Intervention Change Diet Order: TF Nutrition Support: Nepro 1.8 at 40ml/hr Flush 170ml q4h Kcal 1,728 Protein (gm) 78 Fluid (mL) 698 Goal #1 TF tolerance Goal #2 Meet at least 80% of energy and protein needs Anticipated Discharge Needs: unable to determine at this time Follow-Up By: 03/20/20 Additional Comments F/U for TF tolerance, K, phos
[2020-03-20] MEDS: POTASSIUM CHLORIDE 10 MEQ 10 MEQ/100 ML BAG IV SCH ×2 (08:28→09:29)
[2020-03-20] MEDS ORDERED: cefTRIAXone/NS 1 GM/50 ML 1 GM/50 ML BAG IV SCH (10:00)
[2020-03-20] MEDS: SODIUM BICARBONATE 650 MG TAB PO SCH ×5 (10:18→23:17)
[2020-03-20] MEDS: MEROPENEM/NS 1 GRAM/100 ML 1 GRAM/100 ML BAG IV SCH (10:19)
[2020-03-20] MEDS: HEPARIN 5,000 UNIT/1 ML VIAL SUB-Q SCH ×2 (10:19→23:17)
[2020-03-20] MEDS: FAMOTIDINE 20 MG/2 ML INJ IV SCH (10:19)
[2020-03-20] MEDS: NORepinephrine 8 MG in SODIUM CHLORIDE 0.9% 250ML 242 ML IV SCH (11:20)
--- NOTE | 2020-03-20 11:53 | Progress Note ---
Assessment and Plan Cultures: Blood cultures 03/16/2020 no growth today Assessment: 79 years old male with history of hypertension, diabetes mellitus, chronic kidney disease, previous CVA, chronic leg lymphedema, correction res ident, known to our service due to previous ESBL E. coli bacteremia from UTI on 03/02/2020, admitted on due to 24 hours history of generalized weakness and confusion associated with subjective fever: #Severe sepsis with septic shock: Remains on 2 pressors and high leukocytosis. Source likely persistent UTI versus other possibilities ? PICC line infection ? Aspiration pneumonia ? Cdiff #Recent ESBL E. coli bacteremia patient was discharged on ertapenem 1 g IV daily for 14 days end date supposed to be 03/20/2020 #Acute encephalopathy: Likely secondary to sepsis/uremia #Acute on chronic kidney failure #Bilateral leg lymphedema with chronic skin changes Recommendations: -Continue stool for C diff -Start p.o. vancomycin 250 mg 4 times daily once stool sample is obtained -Monitor diarrhea -Follow-up blood cultures -Continue meropenem for now -Okay to stop vancomycin -Wound care consultation Very poor prognosis Will follow. Ivette Zamudio MD Infectious Diseases [employer] [facility], [place], [facility] ([facility]) M [phone] O [phone] Subjective Date of service: 03/20/20 Principal diagnosis: Acute hypoxemic respiratory failure; Septic shock; Ac. encephalopathy; ALEJANDRO Interval history: Remains intubated, currently remains on 2 pressors, no fever, on bicarb drip, reported diarrhea now with a rectal tube Objective - Exam Narrative Exam: General appearance: Lethargic in no acute distress Eyes: anicteric sclerae, moist conjunctivae; no lid-lag; PERRLA lid edema HENT: Normocephalic, Atraumatic; normal external ears, nares open, oropharynx limited Neck: supple, tracheal midline, no JVD Lungs: Diminished breath sounds bilaterally CV: RRR no murmur Abdomen: Soft, non-tender Extremities: Extensive bilateral leg edema, chronic skin changes Skin: No rash. Psych: Lethargic Neuro: Lethargic Rectal tube with diarrhea - Constitutional Vitals: Vital Signs Temp Pulse Resp BP Pulse Ox 97.0 F L 74 29 H 110/77 100 03/20/20 04:00 03/20/20 08:00 03/20/20 08:00 03/20/20 08:00 03/20/20 08:00 Temperature -Last 24 Hours Temperature 97.0 F Temperature 96.8 F Temperature 97.0 F Temperature 98.0 F - Labs CBC & Chem 7: 03/20/20 06:35 03/20/20 06:35 Labs: Abnormal lab results 03/19/20 03/19/20 03/20/20 Range/Units 11:22 Unknown 01:56 WBC (4.5-11.0) K/mm3 RBC (3.65-5.03) M/mm3 Hgb (11.8-15.2) gm/dl Hct (35.5-45.6) % RDW (13.2-15.2) % PT 15.3 H (12.2-14.9) Sec. INR 1.18 H (0.87-1.13) Potassium (3.6-5.0) mmol/L BUN (9-20) mg/dL Creatinine (0.8-1.3) mg/dL Glucose (75-100) mg/dL POC Glucose 274 H 145 H (70-105) mg/dL Calcium (8.4-10.2) mg/dL Phosphorus (2.5-4.5) mg/dL 03/20/20 03/20/20 03/20/20 Range/Units 05:22 06:35 06:35 WBC 27.5 H (4.5-11.0) K/mm3 RBC 2.57 L (3.65-5.03) M/mm3 Hgb 7.9 L D (11.8-15.2) gm/dl Hct 23.3 L D (35.5-45.6) % RDW 17.7 H (13.2-15.2) % PT (12.2-14.9) Sec. INR (0.87-1.13) Potassium 2.9 L* (3.6-5.0) mmol/L BUN 69 H (9-20) mg/dL Creatinine 5.1 H (0.8-1.3) mg/dL Glucose 146 H (75-100) mg/dL POC Glucose 181 H (70-105) mg/dL Calcium 8.2 L (8.4-10.2) mg/dL Phosphorus 5.40 H (2.5-4.5) mg/dL
[2020-03-20] MEDS: MIDODRINE 5 MG TAB PO SCH ×2 (12:39→15:43)
[2020-03-20] MEDS: ALBUMIN HUMAN 25% (25 GM/100 ML) INJ IV SCH ×3 (12:39→23:17)
[2020-03-20] MEDS: VANCOMYCIN 250 MG/10 ML ORAL LIQD PO SCH ×2 (12:41→17:27)
--- NOTE | 2020-03-20 12:48 | Progress Note ---
Assessment and Plan Acute hypoxemic respiratory failure Septic shock Pulmonary HTN Acute Toxic metabolic encephalopathy Acute kidney injury (ALEJANDRO) with acute tubular necrosis (ATN) PUI COVID-19 Sacral decubitus ulcer h/o VTE Hypothermia Obesity Adult FTT - transition to BIPAP scheduled qhs with prn daytime use - HD/UF per nephrology fr toxin and volume clearance - stool sent for c-diff assay and empiric oral vancomycin started - 2D ECHO shows pulm HTN with septal flatettening - Potassium replaced earlier - enteral nutritional support and advance to goal rate as tolerated - aspiration precautions (HOB >/= 40 degrees) - strict I's & O's acutely - vasopressors for target MAP >/= 65 mmHg - conservative volume resuscitation - continue care as below otherwise; - empiric antiinfective's per ID rec's (IV vacn stopped) - accuchecks with glycemic control per SSI (While critically ill target blood glucose of 140-180 mg/dL; avoid hypoglycemia) - wean supplemental oxygen for target O2 sat's > 90% acutely - bronchodilators with pulmonary hygiene per RT - avoid nephrotoxins, renally dose all medications - avoid benzodiazepine's, reduce the possibility of delirium - prn analgesia per pain score - Maintenance of sleep-wake cycle, avoid delirium - G.I. & VTE prophylaxis - PT/OT/ROM exercises - continue mobility protocols for pressure ulcer prophylaxis - Monitor hemodynamics closely - continue other care per attending / other consultants - discharge planning ongoing concurrently .... Re-evaluate in am & prn CONDITION: CRITICAL PROGNOSIS: GUARDED CODE STATUS: FULL CODE The high probability of a clinically significant, sudden or life-threatening deterioration of the [respiratory, cardiovascular, Renal & neurologic] system(s) required my full and direct attention, intervention and personal management. The aggregate critical care time was [32] minutes without overlap. Time includes spent on; [x] Data Review and interpretation [x] Patient assessment and monitoring of vital signs [x] Documentation [x] Medication orders and management Subjective Date of service: 03/20/20 Principal diagnosis: Acute hypoxemic respiratory failure; Septic shock; Ac. encephalopathy; ALEJANDRO Interval history: Patient is seen today for: Acute hypoxemic respiratory failure; Septic shock; Acute Toxic metabolic encephalopathy; ALEJANDRO; PUI COVID-19; Sacral decubitus ulcer; h/o VTE; Hypothermia; Obesity; Adult FTT Seen and examined at bedside; 24hour events reviewed; nursing and respiratory ca re staff consulted; no adverse overnight events reported to me; resting peacefully in bed; on BIPAP machine at time of my exam and about to be cleaned; denies chest or other pain; No N/V/F/C; Vascath placed and now on dialysis Objective Vital Signs - 12hr 03/20/20 03/20/20 03/20/20 01:00 01:15 01:30 Temperature Pulse Rate 76 76 77 Pulse Rate [ From Monitor] Pulse Rate [ Left Dorsalis Pedis] Respiratory 26 H 21 20 Rate Blood Pressure 110/73 117/77 126/79 O2 Sat by Pulse 100 100 100 Oximetry 03/20/20 03/20/20 03/20/20 01:45 02:00 02:15 Temperature Pulse Rate 76 80 74 Pulse Rate [ 74 From Monitor] Pulse Rate [ 74 Left Dorsalis Pedis] Respiratory 17 16 25 H Rate Blood Pressure 124/77 121/84 121/73 O2 Sat by Pulse 100 100 100 Oximetry 03/20/20 03/20/20 03/20/20 02:30 02:45 03:01 Temperature Pulse Rate 76 82 73 Pulse Rate [ From Monitor] Pulse Rate [ Left Dorsalis Pedis] Respiratory 18 21 18 Rate Blood Pressure 118/76 113/77 129/84 O2 Sat by Pulse 99 100 100 Oximetry 03/20/20 03/20/20 03/20/20 03:15 03:30 03:45 Temperature Pulse Rate 75 76 78 Pulse Rate [ From Monitor] Pulse Rate [ Left Dorsalis Pedis] Respiratory 15 16 22 Rate Blood Pressure 110/81 112/82 116/77 O2 Sat by Pulse 100 100 100 Oximetry 03/20/20 03/20/20 03/20/20 03:52 04:00 04:15 Temperature 97.0 F L Pulse Rate 78 76 76 Pulse Rate [ From Monitor] Pulse Rate [ Left Dorsalis Pedis] Respiratory 23 20 19 Rate Blood Pressure 116/77 119/71 125/68 O2 Sat by Pulse 100 100 100 Oximetry 03/20/20 03/20/20 03/20/20 04:30 04:45 05:00 Temperature Pulse Rate 73 74 76 Pulse Rate [ From Monitor] Pulse Rate [ Left Dorsalis Pedis] Respiratory 17 18 19 Rate Blood Pressure 117/76 126/73 123/70 O2 Sat by Pulse 99 99 99 Oximetry 03/20/20 03/20/20 03/20/20 05:15 05:30 05:45 Temperature Pulse Rate 71 73 80 Pulse Rate [ From Monitor] Pulse Rate [ Left Dorsalis Pedis] Respiratory 14 16 12 Rate Blood Pressure 136/79 122/73 128/79 O2 Sat by Pulse 99 100 100 Oximetry 03/20/20 03/20/20 03/20/20 06:00 06:15 06:31 Temperature Pulse Rate 74 72 77 Pulse Rate [ From Monitor] Pulse Rate [ Left Dorsalis Pedis] Respiratory 22 16 14 Rate Blood Pressure 132/73 132/73 111/56 O2 Sat by Pulse 100 99 100 Oximetry 03/20/20 08:00 Temperature Pulse Rate 74 Pulse Rate [ From Monitor] Pulse Rate [ Left Dorsalis Pedis] Respiratory 29 H Rate Blood Pressure 110/77 O2 Sat by Pulse 100 Oximetry Constitutional: appears uncomfortable, other (elderly obese male with mildly increased respiratory effort at rest on BIPAP FFM ) Eyes: non-icteric ENT: oropharynx moist, other (BIPAP FFM) Neck: supple, no JVD, other (large neck circumference) Effort: mildly labored Ascultation: Bilateral: diminished breath sounds, rhonchi (scant bases) Percussion: Bilateral: not dull Cardiovascular: other (S1,S2, Tachycardia, hypotension on Vasopressors) Gastrointestinal: normoactive bowel sounds, soft, non-tender, non-distended (protuberant) Integumentary: rash (Generalized skin flaking/with superficial skin sloughing without erythema or warmth on chest wall), decubitus ulcer (see RN/WCN notes for details) Extremities: pulses normal, no ischemia or petechiae, edema, other (groin vas- cath) Neurologic: pupils equal and round, unable to assess Psychiatric: other (unable to assess re: AMS) CBC and BMP: 03/21/20 03:55 03/21/20 03:55 ABG, PT/INR, D-dimer: ABG ABG pH 7.309 pH Units (7.350-7.450) L 03/19/20 04:10 POC ABG pCO2 37.3 mmHg (32.0-48.0) 03/18/20 12:14 ABG pCO2 36.5 mm Hg 03/19/20 04:10 POC ABG pO2 67.4 mmHg (83-108) L 03/18/20 12:14 ABG pO2 69.4 mm Hg (80.0-90.0) L 03/19/20 04:10 POC ABG HCO3 14.1 03/18/20 12:14 ABG O2 Saturation 92.4 % (95.0-99.0) L 03/19/20 04:10 PT/INR, D-dimer PT 15.3 Sec. (12.2-14.9) H 03/19/20 Unknown INR 1.18 (0.87-1.13) H 03/19/20 Unknown Abnormal lab findings: Abnormal Labs 03/16/20 03/16/20 03/16/20 14:22 14:22 14:23 WBC 32.2 H RBC 2.93 L Hgb 8.9 L Hct 28.2 L MCV 96 H MCHC RDW 18.1 H Seg Neuts % (Manual) 82.0 H Lymphocytes % (Manual) 10.0 L Nucleated RBC % 3.0 H Seg Neutrophils # Man 26.4 H Lymphocytes # (Manual) Monocytes # (Manual) 1.9 H PT INR APTT ABG pH POC ABG pO2 ABG pO2 ABG HCO3 ABG O2 Saturation ABG Base Excess ABG Hemoglobin ABG Potassium ABG Chloride ABG Glucose Oxyhemoglobin Potassium 3.3 L Chloride 108.9 H Carbon Dioxide 12 L BUN 59 H Creatinine 5.9 H Glucose 142 H POC Glucose Calcium 7.7 L Phosphorus Magnesium Alkaline Phosphatase 224 H Total Creatine Kinase Troponin T 0.033 H Total Protein 5.4 L Albumin 1.9 L LDL Cholesterol Direct 35 L HDL Cholesterol 37 L Arterial Blood Glucose Arterial Blood Ionized Calcium Urine WBC (Auto) Urine Creatinine Urine Total Protein 03/16/20 03/16/20 03/16/20 14:27 19:50 21:15 WBC RBC Hgb Hct MCV MCHC RDW Seg Neuts % (Manual) Lymphocytes % (Manual) Nucleated RBC % Seg Neutrophils # Man Lymphocytes # (Manual) Monocytes # (Manual) PT 17.2 H INR 1.37 H APTT 51.3 H ABG pH POC ABG pO2 ABG pO2 ABG HCO3 ABG O2 Saturation ABG Base Excess ABG Hemoglobin ABG Potassium ABG Chloride ABG Glucose Oxyhemoglobin Potassium Chloride Carbon Dioxide BUN Creatinine Glucose POC Glucose Calcium Phosphorus Magnesium Alkaline Phosphatase Total Creatine Kinase Troponin T 0.031 H Total Protein Albumin LDL Cholesterol Direct HDL Cholesterol Arterial Blood Glucose Arterial Blood Ionized Calcium Urine WBC (Auto) > 182.0 H Urine Creatinine Urine Total Protein 03/16/20 03/17/20 03/17/20 22:25 11:13 11:13 WBC 34.4 H RBC 2.60 L Hgb 7.8 L Hct 25.2 L MCV 97 H MCHC 31 L RDW 18.7 H Seg Neuts % (Manual) 88.0 H Lymphocytes % (Manual) 1.0 L Nucleated RBC % 13.0 H Seg Neutrophils # Man 30.3 H Lymphocytes # (Manual) 0.3 L Monocytes # (Manual) PT INR APTT ABG pH POC ABG pO2 ABG pO2 ABG HCO3 ABG O2 Saturation ABG Base Excess ABG Hemoglobin ABG Potassium ABG Chloride ABG Glucose Oxyhemoglobin Potassium 3.3 L Chloride 108.5 H Carbon Dioxide 16 L BUN 57 H Creatinine 5.5 H Glucose 325 H POC Glucose Calcium 7.0 L Phosphorus Magnesium Alkaline Phosphatase Total Creatine Kinase Troponin T 0.047 H D Total Protein Albumin LDL Cholesterol Direct HDL Cholesterol Arterial Blood Glucose Arterial Blood Ionized Calcium Urine WBC (Auto) Urine Creatinine Urine Total Protein 03/17/20 03/17/20 03/17/20 11:13 11:40 Unknown WBC RBC Hgb Hct MCV MCHC RDW Seg Neuts % (Manual) Lymphocytes % (Manual) Nucleated RBC % Seg Neutrophils # Man Lymphocytes # (Manual) Monocytes # (Manual) PT INR APTT ABG pH 7.229 L POC ABG pO2 ABG pO2 98.3 H ABG HCO3 14.6 L ABG O2 Saturation ABG Base Excess -12.0 L ABG Hemoglobin 8.9 L ABG Potassium ABG Chloride ABG Glucose Oxyhemoglobin Potassium Chloride Carbon Dioxide BUN Creatinine Glucose POC Glucose Calcium Phosphorus Magnesium Alkaline Phosphatase Total Creatine Kinase 373 H Troponin T Total Protein Albumin LDL Cholesterol Direct HDL Cholesterol Arterial Blood Glucose Arterial Blood Ionized Calcium Urine WBC (Auto) > 182.0 H Urine Creatinine Urine Total Protein 03/17/20 03/18/20 03/18/20 Unknown 04:40 04:40 WBC 32.0 H RBC 2.56 L Hgb 7.9 L Hct 24.7 L MCV 96 H MCHC RDW 18.2 H Seg Neuts % (Manual) Lymphocytes % (Manual) Nucleated RBC % Seg Neutrophils # Man Lymphocytes # (Manual) Monocytes # (Manual) PT INR APTT ABG pH POC ABG pO2 ABG pO2 ABG HCO3 ABG O2 Saturation ABG Base Excess ABG Hemoglobin ABG Potassium ABG Chloride ABG Glucose Oxyhemoglobin Potassium 2.7 L* Chloride 111.8 H Carbon Dioxide 12 L BUN 56 H Creatinine 4.6 H Glucose 347 H POC Glucose Calcium 6.7 L Phosphorus 5.40 H Magnesium Alkaline Phosphatase Total Creatine Kinase Troponin T Total Protein Albumin LDL Cholesterol Direct HDL Cholesterol Arterial Blood Glucose Arterial Blood Ionized Calcium Urine WBC (Auto) Urine Creatinine 139.3 H Urine Total Protein 328 H 03/18/20 03/18/20 03/18/20 04:40 04:48 12:14 WBC RBC Hgb Hct MCV MCHC RDW Seg Neuts % (Manual) Lymphocytes % (Manual) Nucleated RBC % Seg Neutrophils # Man Lymphocytes # (Manual) Monocytes # (Manual) PT INR APTT ABG pH 7.230 L 7.196 L POC ABG pO2 67.4 L ABG pO2 91.6 H ABG HCO3 13.7 L ABG O2 Saturation ABG Base Excess -12.8 L ABG Hemoglobin 9.2 L 9.9 L ABG Potassium 3.3 L ABG Chloride 112.0 H ABG Glucose 355 H Oxyhemoglobin 94.8 L Potassium Chloride Carbon Dioxide BUN Creatinine Glucose POC Glucose Calcium Phosphorus Magnesium 1.40 L Alkaline Phosphatase Total Creatine Kinase Troponin T Total Protein Albumin LDL Cholesterol Direct HDL Cholesterol Arterial Blood Glucose 355 H Arterial Blood Ionized Calcium 4.5 L Urine WBC (Auto) Urine Creatinine Urine Total Protein 03/18/20 03/18/20 03/18/20 13:17 13:32 19:15 WBC RBC Hgb Hct MCV MCHC RDW Seg Neuts % (Manual) Lymphocytes % (Manual) Nucleated RBC % Seg Neutrophils # Man Lymphocytes # (Manual) Monocytes # (Manual) PT INR APTT ABG pH POC ABG pO2 ABG pO2 ABG HCO3 ABG O2 Saturation ABG Base Excess ABG Hemoglobin ABG Potassium ABG Chloride ABG Glucose Oxyhemoglobin Potassium 3.0 L 3.4 L Chloride 107.2 H Carbon Dioxide 14 L 13 L BUN 59 H 67 H Creatinine 4.8 H 5.1 H Glucose 341 H 371 H POC Glucose 394 H Calcium 7.0 L 7.8 L Phosphorus Magnesium Alkaline Phosphatase Total Creatine Kinase Troponin T Total Protein Albumin LDL Cholesterol Direct HDL Cholesterol Arterial Blood Glucose Arterial Blood Ionized Calcium Urine WBC (Auto) Urine Creatinine Urine Total Protein 03/18/20 03/18/20 03/19/20 19:21 23:00 01:32 EST WBC RBC Hgb Hct MCV MCHC RDW Seg Neuts % (Manual) Lymphocytes % (Manual) Nucleated RBC % Seg Neutrophils # Man Lymphocytes # (Manual) Monocytes # (Manual) PT INR APTT ABG pH POC ABG pO2 ABG pO2 ABG HCO3 ABG O2 Saturation ABG Base Excess ABG Hemoglobin ABG Potassium ABG Chloride ABG Glucose Oxyhemoglobin Potassium Chloride Carbon Dioxide BUN Creatinine Glucose POC Glucose 453 H 360 H 338 H Calcium Phosphorus Magnesium Alkaline Phosphatase Total Creatine Kinase Troponin T Total Protein Albumin LDL Cholesterol Direct HDL Cholesterol Arterial Blood Glucose Arterial Blood Ionized Calcium Urine WBC (Auto) Urine Creatinine Urine Total Protein 03/19/20 03/19/20 03/19/20 04:10 05:10 05:10 WBC 25.8 H RBC 3.61 L Hgb 10.9 L D Hct MCV 100 H MCHC 30 L RDW 19.1 H Seg Neuts % (Manual) Lymphocytes % (Manual) Nucleated RBC % Seg Neutrophils # Man Lymphocytes # (Manual) Monocytes # (Manual) PT INR APTT ABG pH 7.309 L POC ABG pO2 ABG pO2 69.4 L ABG HCO3 17.9 L ABG O2 Saturation 92.4 L ABG Base Excess -7.6 L ABG Hemoglobin 8.1 L ABG Potassium ABG Chloride ABG Glucose Oxyhemoglobin 90.8 L Potassium Chloride Carbon Dioxide BUN Creatinine Glucose POC Glucose Calcium Phosphorus 5.60 H Magnesium Alkaline Phosphatase Total Creatine Kinase Troponin T Total Protein Albumin LDL Cholesterol Direct HDL Cholesterol Arterial Blood Glucose Arterial Blood Ionized Calcium Urine WBC (Auto) Urine Creatinine Urine Total Protein 03/19/20 03/19/20 03/19/20 10:00 11:22 Unknown WBC RBC Hgb Hct MCV MCHC RDW Seg Neuts % (Manual) Lymphocytes % (Manual) Nucleated RBC % Seg Neutrophils # Man Lymphocytes # (Manual) Monocytes # (Manual) PT 15.3 H INR 1.18 H APTT ABG pH POC ABG pO2 ABG pO2 ABG HCO3 ABG O2 Saturation ABG Base Excess ABG Hemoglobin ABG Potassium ABG Chloride ABG Glucose Oxyhemoglobin Potassium 3.0 L Chloride Carbon Dioxide BUN 69 H Creatinine 5.4 H Glucose 250 H POC Glucose 274 H Calcium 7.9 L Phosphorus Magnesium Alkaline Phosphatase Total Creatine Kinase Troponin T Total Protein Albumin LDL Cholesterol Direct HDL Cholesterol Arterial Blood Glucose Arterial Blood Ionized Calcium Urine WBC (Auto) Urine Creatinine Urine Total Protein 03/20/20 03/20/20 03/20/20 01:56 05:22 06:35 WBC 27.5 H RBC 2.57 L Hgb 7.9 L D Hct 23.3 L D MCV MCHC RDW 17.7 H Seg Neuts % (Manual) Lymphocytes % (Manual) Nucleated RBC % Seg Neutrophils # Man Lymphocytes # (Manual) Monocytes # (Manual) PT INR APTT ABG pH POC ABG pO2 ABG pO2 ABG HCO3 ABG O2 Saturation ABG Base Excess ABG Hemoglobin ABG Potassium ABG Chloride ABG Glucose Oxyhemoglobin Potassium Chloride Carbon Dioxide BUN Creatinine Glucose POC Glucose 145 H 181 H Calcium Phosphorus Magnesium Alkaline Phosphatase Total Creatine Kinase Troponin T Total Protein Albumin LDL Cholesterol Direct HDL Cholesterol Arterial Blood Glucose Arterial Blood Ionized Calcium Urine WBC (Auto) Urine Creatinine Urine Total Protein 03/20/20 03/20/20 06:35 12:10 WBC RBC Hgb Hct MCV MCHC RDW Seg Neuts % (Manual) Lymphocytes % (Manual) Nucleated RBC % Seg Neutrophils # Man Lymphocytes # (Manual) Monocytes # (Manual) PT INR APTT ABG pH POC ABG pO2 ABG pO2 ABG HCO3 ABG O2 Saturation ABG Base Excess ABG Hemoglobin ABG Potassium ABG Chloride ABG Glucose Oxyhemoglobin Potassium 2.9 L* Chloride Carbon Dioxide BUN 69 H Creatinine 5.1 H Glucose 146 H POC Glucose 164 H Calcium 8.2 L Phosphorus 5.40 H Magnesium Alkaline Phosphatase Total Creatine Kinase Troponin T Total Protein Albumin LDL Cholesterol Direct HDL Cholesterol Arterial Blood Glucose Arterial Blood Ionized Calcium Urine WBC (Auto) Urine Creatinine Urine Total Protein Chest x-ray: image reviewed (left pleural effusion) Allied health notes reviewed: nursing
[2020-03-20] MEDS: methylPREDNISolone Sod Succinate 40 MG/1 ML INJ IV SCH ×2 (13:08→21:08)
[2020-03-20] MEDS ORDERED: POTASSIUM CHLORIDE 20 MEQ PACKET FEEDTUBE ONE (14:00)
[2020-03-20 14:21] LABS: Bacteria,Urine 2+ /HPF (Negative); Bilirubin,Urine NEG (Negative); Blood,Urine MOD (Negative); Color,Urine Yellow (Yellow); Mucus,Urine FEW /HPF; Urobilinogen,Urine < 2.0 mg/dL (<2.0)
[2020-03-20] MEDS ORDERED: SODIUM CHLORIDE 0.9% 100 ML IV PRN (15:38)
--- NOTE | 2020-03-20 15:42 | Progress Note ---
Assessment and Plan Acute renal failure likely due to ischemic ATN Metabolic encphalopathy Metabolic acidosis Sepsis due to UTI UTI Hypokalemia Hypomagnesemia Hypoalbuminemia Anemia Bicarb improving, d/c bicarb drip. On bicarb tabs. Has been on pressors s/p IJ Vascath by Vascular Surgery. HD today, levophed to keep MAP >65 during HD Ordered Albumin 25% 100 mls q6H X 3 doses to boast up BP Has weldon urine lytes, protein ordered renally dose meds strict I&O daily weight Critical Care time: 36 minutes Dejuan Toledo MD [phone] Subjective Date of service: 03/20/20 Principal diagnosis: Acute hypoxemic respiratory failure; Septic shock; Ac. encephalopathy; ALEJANDRO Interval history: Has been on pressors. In ICU. Objective - Exam Narrative Exam: General appearance: Lethargic EENT: ATNC, PERRL, mucous membranes dry Neck: Present: neck supple Respiratory: Decreased Breath Sounds Heart: tachycardia Gastrointestinal: Absent: tenderness, distended Integumentary: no rash, warm and dry Neurologic: lethargic Musculoskeletal: 2-3+ BLE edema Psychiatric: Lethargic - Vital Signs Vital signs: Vital Signs - 12hr 03/20/20 03/20/20 03/20/20 03:45 03:52 04:00 Temperature 97.0 F L Pulse Rate 78 78 76 Respiratory 22 23 20 Rate Blood Pressure 116/77 116/77 119/71 O2 Sat by Pulse 100 100 100 Oximetry 03/20/20 03/20/20 03/20/20 04:15 04:30 04:45 Temperature Pulse Rate 76 73 74 Respiratory 19 17 18 Rate Blood Pressure 125/68 117/76 126/73 O2 Sat by Pulse 100 99 99 Oximetry 03/20/20 03/20/20 03/20/20 05:00 05:15 05:30 Temperature Pulse Rate 76 71 73 Respiratory 19 14 16 Rate Blood Pressure 123/70 136/79 122/73 O2 Sat by Pulse 99 99 100 Oximetry 03/20/20 03/20/20 03/20/20 05:45 06:00 06:15 Temperature Pulse Rate 80 74 72 Respiratory 12 22 16 Rate Blood Pressure 128/79 132/73 132/73 O2 Sat by Pulse 100 100 99 Oximetry 03/20/20 03/20/20 03/20/20 06:31 08:00 12:00 Temperature Pulse Rate 77 74 72 Respiratory 14 29 H 20 Rate Blood Pressure 111/56 110/77 156/78 O2 Sat by Pulse 100 100 100 Oximetry 03/20/20 14:30 Temperature Pulse Rate Respiratory Rate Blood Pressure O2 Sat by Pulse 100 Oximetry - Lab 03/20/20 06:35 03/20/20 06:35 Most recent lab results ABG pH 7.309 pH Units (7.350-7.450) L 03/19/20 04:10 ABG pCO2 36.5 mm Hg 03/19/20 04:10 ABG pO2 69.4 mm Hg (80.0-90.0) L 03/19/20 04:10 ABG HCO3 17.9 mmol/L (20.0-26.0) L 03/19/20 04:10 ABG O2 Saturation 92.4 % (95.0-99.0) L 03/19/20 04:10 Calcium 8.2 mg/dL (8.4-10.2) L 03/20/20 06:35 Phosphorus 5.40 mg/dL (2.5-4.5) H 03/20/20 06:35 Magnesium 1.70 mg/dL (1.7-2.3) 03/20/20 06:35 Urine Creatinine 139.3 mg/dL (0.1-20.0) H 03/17/20 Unknown Urine Sodium 53 mmol/L 03/17/20 Unknown Urine Total Protein 328 mg/dL (5-11.8) H 03/17/20 Unknown Medications & Allergies - Medications Allergies/Adverse Reactions: Allergies diclofenac [Diclofenac] Allergy (Verified 10/05/18 08:11) Rash Home Medications: Home Medications Medication Instructions Recorded Confirmed Last Taken Type Acetaminophen [Acetaminophen TAB] 650 mg PO Q4H PRN #1 tablet 02/28/17 03/19/20 Unknown Rx Aspirin [Aspirin BABY CHEW TAB] 81 mg PO DAILY #1 tab.chew 02/28/17 03/19/20 Unknown Rx Ferrous Sulfate [Feosol 325 MG tab] 325 mg PO QDAY #1 tablet 02/28/17 03/19/20 Unknown Rx Gabapentin 300 mg PO Q8HR #1 capsule 02/28/17 03/19/20 Unknown Rx Ondansetron [Zofran INJ] 4 mg IV Q8H PRN #1 vial 02/28/17 03/19/20 Unknown Rx amLODIPine 10 mg PO DAILY #1 tablet 02/28/17 03/19/20 Unknown Rx Ertapenem [INVanz] 1 gm IV QDAY vial 03/10/20 03/19/20 Unknown Rx Active Medications: Generic Name Dose Route Start Last Admin Trade Name Freq PRN Reason Stop Dose Admin Acetaminophen 650 mg 03/19/20 18:21 03/19/20 18:39 Tylenol FEEDTUBE 650 mg Q6H PRN Administration Pain, Mild (1-3) Albumin Human 25 gm 03/20/20 10:00 03/20/20 15:33 Alburx 25% (Albumin) IV 03/20/20 22:01 25 gm Q6H IDRIS Administration Albuterol 2.5 mg 03/16/20 17:00 Proventil IH Q3HRT PRN Shortness Of Breath Lipase/Protease/Amylase 1 each 03/17/20 17:12 Pancreaze 10,500 Unit FEEDTUBE PRN PRN For Clogged Feeding Tube Famotidine 20 mg 03/18/20 10:00 03/20/20 10:19 Pepcid IV 20 mg DAILY IDRIS Administration Heparin Sodium (Porcine) 5,000 unit 03/16/20 22:00 03/20/20 10:19 Heparin SUB-Q 5,000 unit Q12HR IDRIS Administration Hydromorphone HCl 0.25 mg 03/16/20 17:30 Dilaudid IV Q4H PRN Pain, Moderate (4-6) Vasopressin 20 unit/ Sodium 101 mls @ 9.09 mls/hr 03/16/20 20:00 03/20/20 04:41 Chloride IV 0.03 units/min TITR IDRIS 9.09 mls/hr Administration Protocol 0.03 UNITS/MIN Norepinephrine 8 mg/ Sodium 250 mls @ 3.75 mls/hr 03/16/20 23:00 03/20/20 11:20 Chloride IV 8 mcg/min TITR IDRIS 15 mls/hr Administration Protocol 2 MCG/MIN Epinephrine 8 mg/ Sodium 250 mls @ 3.75 mls/hr 03/17/20 04:00 03/19/20 09:06 Chloride IV 0 mcg/min TITR IDRIS 0 mls/hr Titration Protocol 2 MCG/MIN MEROPENEM/NS 1 GRAM/100 ML 1 gram in 100 mls @ 100 mls/hr 03/17/20 12:00 03/20/20 10:19 Merrem/Ns 1 Gram/100 Ml IV 100 mls/hr Q24HR IDRIS Administration Protocol Sodium Chloride 100 mls @ 999 mls/hr 03/20/20 15:38 Nacl 0.9% IV DAYLIN PRN Hypotension Insulin Glargine 20 units 03/18/20 22:00 03/19/20 21:08 Lantus SUB-Q 20 units QHS IDRIS Administration Insulin Human Lispro 0 unit 03/18/20 12:00 03/20/20 12:43 Humalog SUB-Q 3 unit Q6HR IDRIS Administration Protocol Methylprednisolone Sodium Succinate 40 mg 03/16/20 22:00 03/20/20 13:08 Solu-Medrol IV 40 mg Q8HR IDRIS Administration Midodrine 10 mg 03/20/20 12:00 03/20/20 12:39 Proamatine PO 10 mg TID@0800,1200,1600 IDRIS Administration Simple Syrup 15 ml 03/17/20 17:12 Simple Syrup FEEDTUBE PRN PRN Hypoglycemia Simple Syrup 30 ml 03/17/20 17:12 Simple Syrup FEEDTUBE PRN PRN Hypoglycemia Sodium Bicarbonate 325 mg 03/17/20 17:12 Sodium Bicarbonate FEEDTUBE PRN PRN For Clogged Feeding Tube Sodium Bicarbonate 1,300 mg 03/18/20 14:00 03/20/20 15:00 Sodium Bicarbonate PO Not Given QID IDRIS Sodium Chloride 10 ml 03/16/20 22:00 03/20/20 12:41 Sodium Chloride Flush Syringe 10 Ml IV 10 ml BID IDRIS Administration Sodium Chloride 10 ml 03/16/20 17:00 Sodium Chloride Flush Syringe 10 Ml IV PRN PRN LINE FLUSH Vancomycin HCl 250 mg 03/20/20 12:00 03/20/20 12:41 Vancomycin Po PO 250 mg Q6HR IDRIS Administration
[2020-03-20 16:50] LABS: ABG Base Excess -2.6 mmol/L (-2.0-3.0); ABG HCO3 22.2 mmol/L (20.0-26.0); ABG Methemoglobin 0.5 % (0.0-1.5); ABG Oxygen Saturation 90.9 % (95.0-99.0); ABG PCO2 38.6 mm Hg; ABG PH 7.378 pH Units (7.350-7.450); ABG PO2 63.9 mm Hg (80.0-90.0)
[2020-03-20 17:15] LABS: Calcium 8.2 mg/dL (8.4-10.2)
[2020-03-20 17:25] LABS: Hepatitis B Surface Antigen Non-Reactive (Negative); Hepatitis C Virus Antibody Non-Reactive (NonReactive)
--- NOTE | 2020-03-20 19:45 | XRay Report ---
CHEST 1 VIEW 03/20/2020 1:41 PM INDICATION / CLINICAL INFORMATION: Bilateral infiltrates, shortness of breath. COMPARISON: Chest one view from 03/19/2020. FINDINGS: SUPPORT DEVICES: Unchanged. HEART / MEDIASTINUM: Stable. LUNGS / PLEURA: Similar moderate left pleural effusion with similar bibasilar opacities. No pneumotho rax. ADDITIONAL FINDINGS: No significant additional findings. IMPRESSION: Stable appearance of the chest compared to 03/19/2020. Signer Name: Keshawn Bertrand MD Signed: 03/20/2020 7:41 PM Workstation Name: [id number]
[2020-03-20] MEDS: INSULIN GLARGINE 100 UNITS/ML SUB-Q SCH (23:17)
[2020-03-21] MEDS: VANCOMYCIN 250 MG/10 ML ORAL LIQD PO SCH ×4 (00:51→18:01)
[2020-03-21] MEDS: INSULIN LISPRO 100 UNIT/ML VIAL 3 mL SUB-Q SCH ×5 (00:53→17:57)
[2020-03-21 05:14] LABS: Calcium 7.6 mg/dL (8.4-10.2); Mean Corpuscular HGB Conc 33 % (32-34); Mean Corpuscular Volume 93 fl (84-94); Red Blood Count 2.06 M/mm3 (3.65-5.03); Red Cell Distribution Width 17.7 % (13.2-15.2)
[2020-03-21 05:32] LABS: Hematocrit 19.2 % (35.5-45.6); Hemoglobin 6.3 gm/dl (11.8-15.2)
[2020-03-21 05:35] LABS: Platelet Count 86 K/mm3 (140-440)
[2020-03-21] MEDS ORDERED: SODIUM CHLORIDE 0.9% 500 ML 500 ML IV ONE (06:11)
[2020-03-21] MEDS: POTASSIUM CHLORIDE 20 MEQ 20 MEQ/100 ML BAG IV SCH ×2 (06:32→07:39)
[2020-03-21] MEDS: methylPREDNISolone Sod Succinate 40 MG/1 ML INJ IV SCH ×4 (06:33→22:25)
--- NOTE | 2020-03-21 06:58 | Ultrasound Report ---
Renal ultrasound bilateral INDICATION: Acute renal failure FINDINGS: The right kidney measures 12 cm in length and left kidney measures 10 cm in length. Multipl e cystic lesions are identified throughout both kidneys. There is a probable calculus within the lowe r pole the left kidney. Both kidney renal cortices are mildly echogenic. No hydronephrosis. Urinary b ladder is collapsed by Cunningham catheter. IMPRESSION: No evidence of hydronephrosis. Echogenic kidneys which could be seen with chronic medical renal disease. Bilateral renal cysts, as above. Signer Name: George Ortega MD Signed: 03/21/2020 6:53 AM Workstation Name: [id number]
[2020-03-21] MEDS ORDERED: POTASSIUM CHLORIDE ER 20 MEQ TAB PO ONE (07:00)
[2020-03-21] MEDS ORDERED: AQUAPHOR OINTMENT TP PRN (07:50)
--- NOTE | 2020-03-21 08:24 | Progress Note ---
Assessment and Plan Acute hypoxemic respiratory failure Septic shock Pulmonary HTN Acute Toxic metabolic encephalopathy Acute kidney injury (ALEJANDRO) with acute tubular necrosis (ATN) PUI COVID-19 Sacral decubitus ulcer h/o VTE Hypothermia Obesity Adult FTT - continue BIPAP scheduled qhs with prn daytime use - continue HD/UF per nephrology for toxin and volume clearance - follow c-diff assay and complete oral vancomycin dosing - 2D ECHO shows pulm HTN with septal flatettening - continue enteral nutritional support and advance to goal rate as tolerated - CUPROUS [employer] evaluation shortly - aspiration precautions (HOB >/= 40 degrees) - strict I's & O's acutely - vasopressors for target MAP >/= 65 mmHg - conservative volume resuscitation - continue care as below otherwise; - empiric antiinfective's per ID rec's (IV vanc stopped) - accuchecks with glycemic control per SSI (While critically ill target blood glucose of 140-180 mg/dL; avoid hypoglycemia) - wean supplemental oxygen for target O2 sat's > 90% acutely - bronchodilators with pulmonary hygiene per RT - avoid nephrotoxins, renally dose all medications - avoid benzodiazepine's, reduce the possibility of delirium - prn analgesia per pain score - Maintenance of sleep-wake cycle, avoid delirium - G.I. & VTE prophylaxis - PT/OT/ROM exercises - continue mobility protocols for pressure ulcer prophylaxis - Monitor hemodynamics closely - continue other care per attending / other consultants - discharge planning ongoing concurrently .... Re-evaluate in am & prn CONDITION: CRITICAL PROGNOSIS: GUARDED CODE STATUS: FULL CODE The high probability of a clinically significant, sudden or life-threatening deterioration of the [respiratory, cardiovascular, Renal & neurologic] system(s) required my full and direct attention, intervention and personal management. The aggregate critical care time was [33] minutes without overlap. Time includes spent on; [x] Data Review and interpretation [x] Patient assessment and monitoring of vital signs [x] Documentation [x] Medication orders and management Subjective Date of service: 03/21/20 Principal diagnosis: Acute hypoxemic respiratory failure; Septic shock; Ac. encephalopathy; ALEJANDRO Interval history: Patient is seen today for: Acute hypoxemic respiratory failure; Septic shock; Acute Toxic metabolic encephalopathy; ALEJANDRO; PUI COVID-19; Sacral decubitus ulcer; h/o VTE; Hypothermia; Obesity; Adult FTT Seen and examined at bedside; 24hour events reviewed; nursing and respiratory care staff consulted; no adverse overnight events reported to me; resting peacefully in bed; on HFNC via vapotherm, 40% & 20L flow; s/p HD/UF today; denies chest pains or palpitations Objective Vital Signs - 12hr 03/20/20 03/20/20 03/20/20 20:28 20:30 20:45 Temperature Pulse Rate 58 L 76 Pulse Rate [ From Monitor] Respiratory 15 17 Rate Blood Pressure 133/83 110/68 O2 Sat by Pulse 100 100 100 Oximetry 03/20/20 03/20/20 03/20/20 21:00 21:15 21:30 Temperature Pulse Rate 72 79 81 Pulse Rate [ From Monitor] Respiratory 14 19 17 Rate Blood Pressure 128/85 128/75 110/68 O2 Sat by Pulse 100 100 100 Oximetry 03/20/20 03/20/20 03/20/20 21:45 22:00 22:15 Temperature Pulse Rate 80 76 Pulse Rate [ 73 From Monitor] Respiratory 25 H 18 18 Rate Blood Pressure 117/65 112/55 106/63 O2 Sat by Pulse 100 100 100 Oximetry 03/20/20 03/20/20 03/20/20 22:18 22:30 22:45 Temperature Pulse Rate 77 71 74 Pulse Rate [ From Monitor] Respiratory 21 19 18 Rate Blood Pressure 106/63 106/63 109/53 O2 Sat by Pulse 100 99 99 Oximetry 03/20/20 03/20/20 03/20/20 23:00 23:15 23:30 Temperature Pulse Rate 74 79 74 Pulse Rate [ From Monitor] Respiratory 14 19 20 Rate Blood Pressure 114/74 117/72 108/55 O2 Sat by Pulse 96 100 100 Oximetry 03/20/20 03/20/20 03/20/20 23:41 23:44 23:46 Temperature 97.4 F L Pulse Rate 62 57 L Pulse Rate [ From Monitor] Respiratory 20 20 Rate Blood Pressure 108/55 150/86 O2 Sat by Pulse 100 100 100 Oximetry 03/21/20 03/21/20 03/21/20 00:00 00:16 00:30 Temperature Pulse Rate 71 72 73 Pulse Rate [ From Monitor] Respiratory 20 17 19 Rate Blood Pressure 117/72 112/70 112/70 O2 Sat by Pulse 100 84 Oximetry 03/21/20 03/21/20 03/21/20 00:45 01:00 01:15 Temperature Pulse Rate 76 69 73 Pulse Rate [ From Monitor] Respiratory 21 19 20 Rate Blood Pressure 110/61 115/79 122/78 O2 Sat by Pulse 100 100 99 Oximetry 03/21/20 03/21/20 03/21/20 01:30 01:45 02:00 Temperature Pulse Rate 78 69 71 Pulse Rate [ From Monitor] Respiratory 15 17 13 Rate Blood Pressure 121/70 129/73 117/63 O2 Sat by Pulse 100 Oximetry 03/21/20 03/21/20 03/21/20 02:15 02:30 02:45 Temperature Pulse Rate 71 71 72 Pulse Rate [ From Monitor] Respiratory 20 19 16 Rate Blood Pressure 119/74 124/83 107/64 O2 Sat by Pulse 100 100 Oximetry 03/21/20 03/21/20 03/21/20 03:00 03:15 03:30 Temperature Pulse Rate 70 71 69 Pulse Rate [ From Monitor] Respiratory 19 22 20 Rate Blood Pressure 107/64 125/70 117/61 O2 Sat by Pulse 100 100 100 Oximetry 03/21/20 03/21/20 03/21/20 03:41 03:46 04:00 Temperature 97.4 F L Pulse Rate 70 64 Pulse Rate [ From Monitor] Respiratory 18 18 Rate Blood Pressure 123/80 123/80 O2 Sat by Pulse 100 100 Oximetry 03/21/20 03/21/20 03/21/20 04:15 04:30 04:44 Temperature Pulse Rate 69 65 65 Pulse Rate [ From Monitor] Respiratory 20 20 22 Rate Blood Pressure 132/80 118/82 116/63 O2 Sat by Pulse 100 100 100 Oximetry 03/21/20 03/21/20 03/21/20 04:45 05:00 05:15 Temperature Pulse Rate 66 69 79 Pulse Rate [ From Monitor] Respiratory 20 19 19 Rate Blood Pressure 116/63 128/74 134/68 O2 Sat by Pulse 100 100 100 Oximetry 03/21/20 03/21/20 03/21/20 05:30 05:46 06:00 Temperature Pulse Rate Pulse Rate [ From Monitor] Respiratory Rate Blood Pressure 134/68 120/75 109/65 O2 Sat by Pulse 100 100 100 Oximetry 03/21/20 03/21/20 03/21/20 06:15 06:30 06:46 Temperature Pulse Rate 71 Pulse Rate [ From Monitor] Respiratory Rate Blood Pressure 105/72 126/87 117/70 O2 Sat by Pulse 100 100 96 Oximetry 03/21/20 03/21/20 03/21/20 07:00 07:15 07:29 Temperature Pulse Rate 62 67 Pulse Rate [ From Monitor] Respiratory 20 20 Rate Blood Pressure 131/83 128/72 O2 Sat by Pulse 100 100 100 Oximetry 03/21/20 03/21/20 03/21/20 07:30 07:45 08:00 Temperature Pulse Rate 68 67 68 Pulse Rate [ From Monitor] Respiratory 21 15 15 Rate Blood Pressure 132/76 129/85 129/85 O2 Sat by Pulse 100 100 100 Oximetry Constitutional: appears uncomfortable, other (elderly obese male with mildly increased respiratory effort at rest on BIPAP FFM ) Eyes: non-icteric ENT: oropharynx moist, other (BIPAP FFM) Neck: supple, no JVD, other (large neck circumference) Effort: mildly labored Ascultation: Bilateral: diminished breath sounds, rhonchi Percussion: Bilateral: not dull Cardiovascular: other (S1,S2, Tachycardia, hypotension on Vasopressors) Gastrointestinal: normoactive bowel sounds, soft, non-tender, non-distended (protuberant) Integumentary: rash (Generalized skin flaking/with superficial skin sloughing without erythema or warmth on chest wall), decubitus ulcer (see RN/WCN notes for details) Extremities: pulses normal, no ischemia or petechiae, edema, other (groin vas- cath) Neurologic: pupils equal and round, unable to assess Psychiatric: other (unable to assess re: AMS) CBC and BMP: 03/21/20 03:55 03/21/20 09:15 ABG, PT/INR, D-dimer: ABG ABG pH 7.378 pH Units (7.350-7.450) 03/20/20 16:35 POC ABG pCO2 37.3 mmHg (32.0-48.0) 03/18/20 12:14 ABG pCO2 38.6 mm Hg 03/20/20 16:35 POC ABG pO2 67.4 mmHg (83-108) L 03/18/20 12:14 ABG pO2 63.9 mm Hg (80.0-90.0) L 03/20/20 16:35 POC ABG HCO3 14.1 03/18/20 12:14 ABG O2 Saturation 90.9 % (95.0-99.0) L 03/20/20 16:35 PT/INR, D-dimer PT 15.3 Sec. (12.2-14.9) H 03/19/20 Unknown INR 1.18 (0.87-1.13) H 03/19/20 Unknown Abnormal lab findings: Abnormal Labs 03/16/20 03/16/20 03/16/20 14:22 14:22 14:23 WBC 32.2 H RBC 2.93 L Hgb 8.9 L Hct 28.2 L MCV 96 H MCHC RDW 18.1 H Plt Count Seg Neuts % (Manual) 82.0 H Lymphocytes % (Manual) 10.0 L Nucleated RBC % 3.0 H Seg Neutrophils # Man 26.4 H Lymphocytes # (Manual) Monocytes # (Manual) 1.9 H PT INR APTT ABG pH POC ABG pO2 ABG pO2 ABG HCO3 ABG O2 Saturation ABG Base Excess ABG Hemoglobin ABG Potassium ABG Chloride ABG Glucose Oxyhemoglobin Sodium Potassium 3.3 L Chloride 108.9 H Carbon Dioxide 12 L BUN 59 H Creatinine 5.9 H Glucose 142 H POC Glucose Calcium 7.7 L Phosphorus Magnesium Alkaline Phosphatase 224 H Total Creatine Kinase Troponin T 0.033 H Total Protein 5.4 L Albumin 1.9 L LDL Cholesterol Direct 35 L HDL Cholesterol 37 L Arterial Blood Glucose Arterial Blood Ionized Calcium Urine WBC (Auto) Urine Creatinine Urine Total Protein Crossmatch 03/16/20 03/16/20 03/16/20 14:27 19:50 21:15 WBC RBC Hgb Hct MCV MCHC RDW Plt Count Seg Neuts % (Manual) Lymphocytes % (Manual) Nucleated RBC % Seg Neutrophils # Man Lymphocytes # (Manual) Monocytes # (Manual) PT 17.2 H INR 1.37 H APTT 51.3 H ABG pH POC ABG pO2 ABG pO2 ABG HCO3 ABG O2 Saturation ABG Base Excess ABG Hemoglobin ABG Potassium ABG Chloride ABG Glucose Oxyhemoglobin Sodium Potassium Chloride Carbon Dioxide BUN Creatinine Glucose POC Glucose Calcium Phosphorus Magnesium Alkaline Phosphatase Total Creatine Kinase Troponin T 0.031 H Total Protein Albumin LDL Cholesterol Direct HDL Cholesterol Arterial Blood Glucose Arterial Blood Ionized Calcium Urine WBC (Auto) > 182.0 H Urine Creatinine Urine Total Protein Crossmatch 1003/17/20 03/17/20 22:25 11:13 11:13 WBC 34.4 H RBC 2.60 L Hgb 7.8 L Hct 25.2 L MCV 97 H MCHC 31 L RDW 18.7 H Plt Count Seg Neuts % (Manual) 88.0 H Lymphocytes % (Manual) 1.0 L Nucleated RBC % 13.0 H Seg Neutrophils # Man 30.3 H Lymphocytes # (Manual) 0.3 L Monocytes # (Manual) PT INR APTT ABG pH POC ABG pO2 ABG pO2 ABG HCO3 ABG O2 Saturation ABG Base Excess ABG Hemoglobin ABG Potassium ABG Chloride ABG Glucose Oxyhemoglobin Sodium Potassium 3.3 L Chloride 108.5 H Carbon Dioxide 16 L BUN 57 H Creatinine 5.5 H Glucose 325 H POC Glucose Calcium 7.0 L Phosphorus Magnesium Alkaline Phosphatase Total Creatine Kinase Troponin T 0.047 H D Total Protein Albumin LDL Cholesterol Direct HDL Cholesterol Arterial Blood Glucose Arterial Blood Ionized Calcium Urine WBC (Auto) Urine Creatinine Urine Total Protein Crossmatch 03/17/20 03/17/20 03/17/20 11:13 11:40 Unknown WBC RBC Hgb Hct MCV MCHC RDW Plt Count Seg Neuts % (Manual) Lymphocytes % (Manual) Nucleated RBC % Seg Neutrophils # Man Lymphocytes # (Manual) Monocytes # (Manual) PT INR APTT ABG pH 7.229 L POC ABG pO2 ABG pO2 98.3 H ABG HCO3 14.6 L ABG O2 Saturation ABG Base Excess -12.0 L ABG Hemoglobin 8.9 L ABG Potassium ABG Chloride ABG Glucose Oxyhemoglobin Sodium Potassium Chloride Carbon Dioxide BUN Creatinine Glucose POC Glucose Calcium Phosphorus Magnesium Alkaline Phosphatase Total Creatine Kinase 373 H Troponin T Total Protein Albumin LDL Cholesterol Direct HDL Cholesterol Arterial Blood Glucose Arterial Blood Ionized Calcium Urine WBC (Auto) > 182.0 H Urine Creatinine Urine Total Protein Crossmatch 03/17/20 03/18/20 03/18/20 Unknown 04:40 04:40 WBC 32.0 H RBC 2.56 L Hgb 7.9 L Hct 24.7 L MCV 96 H MCHC RDW 18.2 H Plt Count Seg Neuts % (Manual) Lymphocytes % (Manual) Nucleated RBC % Seg Neutrophils # Man Lymphocytes # (Manual) Monocytes # (Manual) PT INR APTT ABG pH POC ABG pO2 ABG pO2 ABG HCO3 ABG O2 Saturation ABG Base Excess ABG Hemoglobin ABG Potassium ABG Chloride ABG Glucose Oxyhemoglobin Sodium Potassium 2.7 L* Chloride 111.8 H Carbon Dioxide 12 L BUN 56 H Creatinine 4.6 H Glucose 347 H POC Glucose Calcium 6.7 L Phosphorus 5.40 H Magnesium Alkaline Phosphatase Total Creatine Kinase Troponin T Total Protein Albumin LDL Cholesterol Direct HDL Cholesterol Arterial Blood Glucose Arterial Blood Ionized Calcium Urine WBC (Auto) Urine Creatinine 139.3 H Urine Total Protein 328 H Crossmatch 03/18/20 03/18/20 03/18/20 04:40 04:48 12:14 WBC RBC Hgb Hct MCV MCHC RDW Plt Count Seg Neuts % (Manual) Lymphocytes % (Manual) Nucleated RBC % Seg Neutrophils # Man Lymphocytes # (Manual) Monocytes # (Manual) PT INR APTT ABG pH 7.230 L 7.196 L POC ABG pO2 67.4 L ABG pO2 91.6 H ABG HCO3 13.7 L ABG O2 Saturation ABG Base Excess -12.8 L ABG Hemoglobin 9.2 L 9.9 L ABG Potassium 3.3 L ABG Chloride 112.0 H ABG Glucose 355 H Oxyhemoglobin 94.8 L Sodium Potassium Chloride Carbon Dioxide BUN Creatinine Glucose POC Glucose Calcium Phosphorus Magnesium 1.40 L Alkaline Phosphatase Total Creatine Kinase Troponin T Total Protein Albumin LDL Cholesterol Direct HDL Cholesterol Arterial Blood Glucose 355 H Arterial Blood Ionized Calcium 4.5 L Urine WBC (Auto) Urine Creatinine Urine Total Protein Crossmatch 03/18/20 03/18/20 03/18/20 13:17 13:32 19:15 WBC RBC Hgb Hct MCV MCHC RDW Plt Count Seg Neuts % (Manual) Lymphocytes % (Manual) Nucleated RBC % Seg Neutrophils # Man Lymphocytes # (Manual) Monocytes # (Manual) PT INR APTT ABG pH POC ABG pO2 ABG pO2 ABG HCO3 ABG O2 Saturation ABG Base Excess ABG Hemoglobin ABG Potassium ABG Chloride ABG Glucose Oxyhemoglobin Sodium Potassium 3.0 L 3.4 L Chloride 107.2 H Carbon Dioxide 14 L 13 L BUN 59 H 67 H Creatinine 4.8 H 5.1 H Glucose 341 H 371 H POC Glucose 394 H Calcium 7.0 L 7.8 L Phosphorus Magnesium Alkaline Phosphatase Total Creatine Kinase Troponin T Total Protein Albumin LDL Cholesterol Direct HDL Cholesterol Arterial Blood Glucose Arterial Blood Ionized Calcium Urine WBC (Auto) Urine Creatinine Urine Total Protein Crossmatch 03/18/20 03/18/20 03/19/20 19:21 23:00 01:32 EST WBC RBC Hgb Hct MCV MCHC RDW Plt Count Seg Neuts % (Manual) Lymphocytes % (Manual) Nucleated RBC % Seg Neutrophils # Man Lymphocytes # (Manual) Monocytes # (Manual) PT INR APTT ABG pH POC ABG pO2 ABG pO2 ABG HCO3 ABG O2 Saturation ABG Base Excess ABG Hemoglobin ABG Potassium ABG Chloride ABG Glucose Oxyhemoglobin Sodium Potassium Chloride Carbon Dioxide BUN Creatinine Glucose POC Glucose 453 H 360 H 338 H Calcium Phosphorus Magnesium Alkaline Phosphatase Total Creatine Kinase Troponin T Total Protein Albumin LDL Cholesterol Direct HDL Cholesterol Arterial Blood Glucose Arterial Blood Ionized Calcium Urine WBC (Auto) Urine Creatinine Urine Total Protein Crossmatch 03/19/20 03/19/20 03/19/20 04:10 05:10 05:10 WBC 25.8 H RBC 3.61 L Hgb 10.9 L D Hct MCV 100 H MCHC 30 L RDW 19.1 H Plt Count Seg Neuts % (Manual) Lymphocytes % (Manual) Nucleated RBC % Seg Neutrophils # Man Lymphocytes # (Manual) Monocytes # (Manual) PT INR APTT ABG pH 7.309 L POC ABG pO2 ABG pO2 69.4 L ABG HCO3 17.9 L ABG O2 Saturation 92.4 L ABG Base Excess -7.6 L ABG Hemoglobin 8.1 L ABG Potassium ABG Chloride ABG Glucose Oxyhemoglobin 90.8 L Sodium Potassium Chloride Carbon Dioxide BUN Creatinine Glucose POC Glucose Calcium Phosphorus 5.60 H Magnesium Alkaline Phosphatase Total Creatine Kinase Troponin T Total Protein Albumin LDL Cholesterol Direct HDL Cholesterol Arterial Blood Glucose Arterial Blood Ionized Calcium Urine WBC (Auto) Urine Creatinine Urine Total Protein Crossmatch 03/19/20 03/19/20 03/19/20 10:00 11:22 Unknown WBC RBC Hgb Hct MCV MCHC RDW Plt Count Seg Neuts % (Manual) Lymphocytes % (Manual) Nucleated RBC % Seg Neutrophils # Man Lymphocytes # (Manual) Monocytes # (Manual) PT 15.3 H INR 1.18 H APTT ABG pH POC ABG pO2 ABG pO2 ABG HCO3 ABG O2 Saturation ABG Base Excess ABG Hemoglobin ABG Potassium ABG Chloride ABG Glucose Oxyhemoglobin Sodium Potassium 3.0 L Chloride Carbon Dioxide BUN 69 H Creatinine 5.4 H Glucose 250 H POC Glucose 274 H Calcium 7.9 L Phosphorus Magnesium Alkaline Phosphatase Total Creatine Kinase Troponin T Total Protein Albumin LDL Cholesterol Direct HDL Cholesterol Arterial Blood Glucose Arterial Blood Ionized Calcium Urine WBC (Auto) Urine Creatinine Urine Total Protein Crossmatch 03/20/20 03/20/20 03/20/20 01:56 05:22 06:35 WBC 27.5 H RBC 2.57 L Hgb 7.9 L D Hct 23.3 L D MCV MCHC RDW 17.7 H Plt Count Seg Neuts % (Manual) Lymphocytes % (Manual) Nucleated RBC % Seg Neutrophils # Man Lymphocytes # (Manual) Monocytes # (Manual) PT INR APTT ABG pH POC ABG pO2 ABG pO2 ABG HCO3 ABG O2 Saturation ABG Base Excess ABG Hemoglobin ABG Potassium ABG Chloride ABG Glucose Oxyhemoglobin Sodium Potassium Chloride Carbon Dioxide BUN Creatinine Glucose POC Glucose 145 H 181 H Calcium Phosphorus Magnesium Alkaline Phosphatase Total Creatine Kinase Troponin T Total Protein Albumin LDL Cholesterol Direct HDL Cholesterol Arterial Blood Glucose Arterial Blood Ionized Calcium Urine WBC (Auto) Urine Creatinine Urine Total Protein Crossmatch 03/20/20 03/20/20 03/20/20 06:35 12:10 13:30 WBC RBC Hgb Hct MCV MCHC RDW Plt Count Seg Neuts % (Manual) Lymphocytes % (Manual) Nucleated RBC % Seg Neutrophils # Man Lymphocytes # (Manual) Monocytes # (Manual) PT INR APTT ABG pH POC ABG pO2 ABG pO2 ABG HCO3 ABG O2 Saturation ABG Base Excess ABG Hemoglobin ABG Potassium ABG Chloride ABG Glucose Oxyhemoglobin Sodium Potassium 2.9 L* Chloride Carbon Dioxide BUN 69 H Creatinine 5.1 H Glucose 146 H POC Glucose 164 H Calcium 8.2 L Phosphorus 5.40 H Magnesium Alkaline Phosphatase Total Creatine Kinase Troponin T Total Protein Albumin LDL Cholesterol Direct HDL Cholesterol Arterial Blood Glucose Arterial Blood Ionized Calcium Urine WBC (Auto) 153.0 H Urine Creatinine Urine Total Protein Crossmatch 03/20/20 03/20/20 03/20/20 16:00 16:35 17:23 WBC RBC Hgb Hct MCV MCHC RDW Plt Count Seg Neuts % (Manual) Lymphocytes % (Manual) Nucleated RBC % Seg Neutrophils # Man Lymphocytes # (Manual) Monocytes # (Manual) PT INR APTT ABG pH POC ABG pO2 ABG pO2 63.9 L ABG HCO3 ABG O2 Saturation 90.9 L ABG Base Excess -2.6 L ABG Hemoglobin 9.5 L ABG Potassium ABG Chloride ABG Glucose Oxyhemoglobin 89.3 L Sodium 146 H Potassium 3.3 L Chloride Carbon Dioxide BUN 72 H Creatinine 5.1 H Glucose 150 H POC Glucose 191 H Calcium 8.2 L Phosphorus Magnesium Alkaline Phosphatase Total Creatine Kinase Troponin T Total Protein Albumin LDL Cholesterol Direct HDL Cholesterol Arterial Blood Glucose Arterial Blood Ionized Calcium Urine WBC (Auto) Urine Creatinine Urine Total Protein Crossmatch 03/21/20 03/21/20 03/21/20 00:48 03:55 03:55 WBC 22.4 H RBC 2.06 L Hgb 6.3 L Hct 19.2 L* MCV MCHC RDW 17.7 H Plt Count 86 L Seg Neuts % (Manual) Lymphocytes % (Manual) Nucleated RBC % Seg Neutrophils # Man Lymphocytes # (Manual) Monocytes # (Manual) PT INR APTT ABG pH POC ABG pO2 ABG pO2 ABG HCO3 ABG O2 Saturation ABG Base Excess ABG Hemoglobin ABG Potassium ABG Chloride ABG Glucose Oxyhemoglobin Sodium 148 H Potassium 2.8 L* Chloride 108.2 H Carbon Dioxide BUN 52 H Creatinine 3.8 H Glucose 130 H POC Glucose 158 H Calcium 7.6 L Phosphorus Magnesium Alkaline Phosphatase Total Creatine Kinase Troponin T Total Protein Albumin LDL Cholesterol Direct HDL Cholesterol Arterial Blood Glucose Arterial Blood Ionized Calcium Urine WBC (Auto) Urine Creatinine Urine Total Protein Crossmatch 03/21/20 03/21/20 05:37 06:43 WBC RBC Hgb Hct MCV MCHC RDW Plt Count Seg Neuts % (Manual) Lymphocytes % (Manual) Nucleated RBC % Seg Neutrophils # Man Lymphocytes # (Manual) Monocytes # (Manual) PT INR APTT ABG pH POC ABG pO2 ABG pO2 ABG HCO3 ABG O2 Saturation ABG Base Excess ABG Hemoglobin ABG Potassium ABG Chloride ABG Glucose Oxyhemoglobin Sodium Potassium Chloride Carbon Dioxide BUN Creatinine Glucose POC Glucose 159 H Calcium Phosphorus Magnesium Alkaline Phosphatase Total Creatine Kinase Troponin T Total Protein Albumin LDL Cholesterol Direct HDL Cholesterol Arterial Blood Glucose Arterial Blood Ionized Calcium Urine WBC (Auto) Urine Creatinine Urine Total Protein Crossmatch See Detail Chest x-ray: pending Allied health notes reviewed: nursing
--- NOTE | 2020-03-21 08:58 | Progress Note ---
Assessment and Plan Acute renal failure likely due to ischemic ATN Metabolic encphalopathy Metabolic acidosis Sepsis due to UTI UTI Hypokalemia Hypomagnesemia Hypoalbuminemia Anemia s/p IJ Vascath by Vascular Surgery and first HD 03/20 HD again for clearance and volume removal with 4 bath for hypokalemia Epogen with HD for anemia Has weldon renally dose meds strict I&O daily weight Carson Patel MD [phone] Subjective Date of service: 03/21/20 Principal diagnosis: Acute hypoxemic respiratory failure; Septic shock; Ac. encephalopathy; ALEJANDRO Interval history: tolerated HD yesterday, no family at bedside. Objective - Vital Signs Vital signs: Vital Signs - 12hr 03/20/20 03/20/20 03/20/20 21:00 21:15 21:30 Temperature Pulse Rate 72 79 81 Pulse Rate [ From Monitor] Respiratory 14 19 17 Rate Blood Pressure 128/85 128/75 110/68 O2 Sat by Pulse 100 100 100 Oximetry 03/20/20 03/20/20 03/20/20 21:45 22:00 22:15 Temperature Pulse Rate 80 76 Pulse Rate [ 73 From Monitor] Respiratory 25 H 18 18 Rate Blood Pressure 117/65 112/55 106/63 O2 Sat by Pulse 100 100 100 Oximetry 03/20/20 03/20/20 03/20/20 22:18 22:30 22:45 Temperature Pulse Rate 77 71 74 Pulse Rate [ From Monitor] Respiratory 21 19 18 Rate Blood Pressure 106/63 106/63 109/53 O2 Sat by Pulse 100 99 99 Oximetry 03/20/20 03/20/20 03/20/20 23:00 23:15 23:30 Temperature Pulse Rate 74 79 74 Pulse Rate [ From Monitor] Respiratory 14 19 20 Rate Blood Pressure 114/74 117/72 108/55 O2 Sat by Pulse 96 100 100 Oximetry 03/20/20 03/20/20 03/20/20 23:41 23:44 23:46 Temperature 97.4 F L Pulse Rate 62 57 L Pulse Rate [ From Monitor] Respiratory 20 20 Rate Blood Pressure 108/55 150/86 O2 Sat by Pulse 100 100 100 Oximetry 03/21/20 03/21/20 03/21/20 00:00 00:16 00:30 Temperature Pulse Rate 71 72 73 Pulse Rate [ From Monitor] Respiratory 20 17 19 Rate Blood Pressure 117/72 112/70 112/70 O2 Sat by Pulse 100 84 Oximetry 03/21/20 03/21/20 03/21/20 00:45 01:00 01:15 Temperature Pulse Rate 76 69 73 Pulse Rate [ From Monitor] Respiratory 21 19 20 Rate Blood Pressure 110/61 115/79 122/78 O2 Sat by Pulse 100 100 99 Oximetry 03/21/20 03/21/20 03/21/20 01:30 01:45 02:00 Temperature Pulse Rate 78 69 71 Pulse Rate [ From Monitor] Respiratory 15 17 13 Rate Blood Pressure 121/70 129/73 117/63 O2 Sat by Pulse 100 Oximetry 03/21/20 03/21/20 03/21/20 02:15 02:30 02:45 Temperature Pulse Rate 71 71 72 Pulse Rate [ From Monitor] Respiratory 20 19 16 Rate Blood Pressure 119/74 124/83 107/64 O2 Sat by Pulse 100 100 Oximetry 03/21/20 03/21/20 03/21/20 03:00 03:15 03:30 Temperature Pulse Rate 70 71 69 Pulse Rate [ From Monitor] Respiratory 19 22 20 Rate Blood Pressure 107/64 125/70 117/61 O2 Sat by Pulse 100 100 100 Oximetry 03/21/20 03/21/20 03/21/20 03:41 03:46 04:00 Temperature 97.4 F L Pulse Rate 70 64 Pulse Rate [ From Monitor] Respiratory 18 18 Rate Blood Pressure 123/80 123/80 O2 Sat by Pulse 100 100 Oximetry 03/21/20 03/21/20 03/21/20 04:15 04:30 04:44 Temperature Pulse Rate 69 65 65 Pulse Rate [ From Monitor] Respiratory 20 20 22 Rate Blood Pressure 132/80 118/82 116/63 O2 Sat by Pulse 100 100 100 Oximetry 03/21/20 03/21/20 03/21/20 04:45 05:00 05:15 Temperature Pulse Rate 66 69 79 Pulse Rate [ From Monitor] Respiratory 20 19 19 Rate Blood Pressure 116/63 128/74 134/68 O2 Sat by Pulse 100 100 100 Oximetry 03/21/20 03/21/20 03/21/20 05:30 05:46 06:00 Temperature Pulse Rate Pulse Rate [ From Monitor] Respiratory Rate Blood Pressure 134/68 120/75 109/65 O2 Sat by Pulse 100 100 100 Oximetry 03/21/20 03/21/2020 06:15 06:30 06:46 Temperature Pulse Rate 71 Pulse Rate [ From Monitor] Respiratory Rate Blood Pressure 105/72 126/87 117/70 O2 Sat by Pulse 100 100 96 Oximetry 03/21/20 03/21/20 03/21/20 07:00 07:15 07:29 Temperature Pulse Rate 62 67 Pulse Rate [ From Monitor] Respiratory 20 20 Rate Blood Pressure 131/83 128/72 O2 Sat by Pulse 100 100 100 Oximetry 03/21/20 03/21/20 03/21/20 07:30 07:45 08:00 Temperature Pulse Rate 68 67 68 Pulse Rate [ From Monitor] Respiratory 21 15 15 Rate Blood Pressure 132/76 129/85 129/85 O2 Sat by Pulse 100 100 100 Oximetry - General Appearance General appearance: well-developed, obese EENT: ATNC, PERRL, mucous membranes dry Neck: no JVD, no carotid bruit Respiratory: Present: Decreased Breath Sounds. Absent: Rales, Ronchi, Wheezes Cardiology: regular, S1S2 Gastrointestinal: normoactive bowel sounds, no tenderness, no distended, no masses, no guarding, obese Integumentary: no rash, warm and dry Neurologic: no focal deficit Musculoskeletal: other (trace pitting edema in BLE) Psychiatric: cooperative - Lab 03/21/20 03:55 03/21/20 03:55 Most recent lab results ABG pH 7.378 pH Units (7.350-7.450) 03/20/20 16:35 ABG pCO2 38.6 mm Hg 03/20/20 16:35 ABG pO2 63.9 mm Hg (80.0-90.0) L 03/20/20 16:35 ABG HCO3 22.2 mmol/L (20.0-26.0) 03/20/20 16:35 ABG O2 Saturation 90.9 % (95.0-99.0) L 03/20/20 16:35 Calcium 7.6 mg/dL (8.4-10.2) L 03/21/20 03:55 Phosphorus 3.80 mg/dL (2.5-4.5) D 03/21/20 03:55 Magnesium 1.70 mg/dL (1.7-2.3) 03/20/20 06:35 Urine Creatinine 139.3 mg/dL (0.1-20.0) H 03/17/20 Unknown Urine Sodium 53 mmol/L 03/17/20 Unknown Urine Total Protein 328 mg/dL (5-11.8) H 03/17/20 Unknown Medications & Allergies - Medications Allergies/Adverse Reactions: Allergies diclofenac [Diclofenac] Allergy (Verified 10/05/18 08:11) Rash Home Medications: Home Medications Medication Instructions Recorded Confirmed Last Taken Type Acetaminophen [Acetaminophen TAB] 650 mg PO Q4H PRN #1 tablet 02/28/17 03/19/20 Unknown Rx Aspirin [Aspirin BABY CHEW TAB] 81 mg PO DAILY #1 tab.chew 02/28/17 03/19/20 Unknown Rx Ferrous Sulfate [Feosol 325 MG tab] 325 mg PO QDAY #1 tablet 02/28/17 03/19/20 Unknown Rx Gabapentin 300 mg PO Q8HR #1 capsule 02/28/17 03/19/20 Unknown Rx Ondansetron [Zofran INJ] 4 mg IV Q8H PRN #1 vial 02/28/17 03/19/20 Unknown Rx amLODIPine 10 mg PO DAILY #1 tablet 02/28/17 03/19/20 Unknown Rx Ertapenem [INVanz] 1 gm IV QDAY vial 03/10/20 03/19/20 Unknown Rx Active Medications: Generic Name Dose Route Start Last Admin Trade Name Freq PRN Reason Stop Dose Admin Acetaminophen 650 mg 03/19/20 18:21 03/19/20 18:39 Tylenol FEEDTUBE 650 mg Q6H PRN Administration Pain, Mild (1-3) Albuterol 2.5 mg 03/16/20 17:00 Proventil IH Q3HRT PRN Shortness Of Breath Lipase/Protease/Amylase 1 each 03/17/20 17:12 Pancrescooby Granger 10,500 Unit FEEDTUBE PRN PRN For Clogged Feeding Tube Epoetin Colin 10,000 unit 03/21/20 09:00 Procrit IV DAYLIN IDRIS Famotidine 20 mg 03/18/20 10:00 03/20/20 10:19 Pepcid IV 20 mg DAILY IDRIS Administration Heparin Sodium (Porcine) 5,000 unit 03/16/20 22:00 03/20/20 23:17 Heparin SUB-Q 5,000 unit Q12HR IDRIS Administration Hydromorphone HCl 0.25 mg 03/16/20 17:30 Dilaudid IV Q4H PRN Pain, Moderate (4-6) Hydrophilic Ointment 1 applic 03/21/20 07:50 Aquaphor TP Q12HR PRN DRY SKIN Vasopressin 20 unit/ Sodium 101 mls @ 9.09 mls/hr 03/16/20 20:00 03/20/20 04:41 Chloride IV 0.03 units/min TITR IDRIS 9.09 mls/hr Administration Protocol 0.03 UNITS/MIN Norepinephrine 8 mg/ Sodium 250 mls @ 3.75 mls/hr 03/16/20 23:00 03/20/20 11:20 Chloride IV 8 mcg/min TITR IDRIS 15 mls/hr Administration Protocol 2 MCG/MIN Epinephrine 8 mg/ Sodium 250 mls @ 3.75 mls/hr 03/17/20 04:00 03/19/20 09:06 Chloride IV 0 mcg/min TITR IDRIS 0 mls/hr Titration Protocol 2 MCG/MIN MEROPENEM/NS 1 GRAM/100 ML 1 gram in 100 mls @ 100 mls/hr 03/17/20 12:00 03/20/20 10:19 Merrem/Ns 1 Gram/100 Ml IV 100 mls/hr Q24HR IDRIS Administration Protocol Sodium Chloride 100 mls @ 999 mls/hr 03/20/20 15:38 Nacl 0.9% IV DAYLIN PRN Hypotension Potassium Chloride 20 meq in 100 mls @ 100 mls/hr 03/21/20 07:00 03/21/20 07:39 Kcl 20meq/100ml IV 03/21/20 08:59 100 mls/hr Q1H IDRIS Administration Insulin Glargine 20 units 03/18/20 22:00 03/20/20 23:17 Lantus SUB-Q 20 units QHS IDRIS Administration Insulin Human Lispro 0 unit 03/18/20 12:00 03/21/20 07:34 Humalog SUB-Q Not Given Q6HR [facility] Protocol Methylprednisolone Sodium Succinate 40 mg 03/16/20 22:00 03/21/20 07:34 Solu-Medrol IV Not Given Q8HR [facility] Midodrine 10 mg 03/20/20 12:00 03/20/20 15:43 Proamatine PO 10 mg TID@0800,1200,1600 IDRIS Administration Simple Syrup 15 ml 03/17/20 17:12 Simple Syrup FEEDTUBE PRN PRN Hypoglycemia Simple Syrup 30 ml 03/17/20 17:12 Simple Syrup FEEDTUBE PRN PRN Hypoglycemia Sodium Bicarbonate 325 mg 03/17/20 17:12 Sodium Bicarbonate FEEDTUBE PRN PRN For Clogged Feeding Tube Sodium Bicarbonate 1,300 mg 03/18/20 14:00 03/20/20 23:17 Sodium Bicarbonate PO 1,300 mg QID IDRIS Administration Sodium Chloride 10 ml 03/16/20 22:00 03/21/20 00:52 Sodium Chloride Flush Syringe 10 Ml IV 10 ml BID IDRIS Administration Sodium Chloride 10 ml 03/16/20 17:00 Sodium Chloride Flush Syringe 10 Ml IV PRN PRN LINE FLUSH Vancomycin HCl 250 mg 03/20/20 12:00 03/21/20 06:33 Vancomycin Po PO 250 mg Q6HR IDRIS Administration
[2020-03-21] MEDS ORDERED: EPOETIN ALFA 2,000 UNIT/1 ML VIAL IV SCH (09:00)
[2020-03-21 10:25] LABS: Calcium 8.5 mg/dL (8.4-10.2)
--- NOTE | 2020-03-21 10:37 | Progress Note ---
Assessment and Plan Cultures: Blood cultures 03/16/2020 no growth today Assessment: 79 years old male with history of hypertension, diabetes mellitus, chronic kidney disease, previous CVA, chronic leg lymphedema, senior living res ident, known to our service due to previous ESBL E. coli bacteremia from UTI on 03/02/2020, admitted on due to 24 hours history of generalized weakness and confusion associated with subjective fever: #Severe sepsis with septic shock: off pressors, leukocytosis improving. Source likely severe Cdiff #Severe C diff colitis: was on ertapenem for 2 weeks #Recent ESBL E. coli bacteremia patient was discharged on ertapenem 1 g IV daily for 14 days end date supposed to be 03/20/2020 #Acute encephalopathy: Likely secondary to sepsis/uremia #Acute on chronic kidney failure #Bilateral leg lymphedema with chronic skin changes #Desquamative rash: ? Drug allergy, seems improving Recommendations: -Continue vancomycin 250 mg 4 times daily total 14 days -Start metronidazole 500 mg IV q8h -Stop meropenem -Monitor diarrhea -Follow-up blood cultures -Wound care consultation Will follow. Ivette Zamudio MD Infectious Diseases [place] [employer] [facility], [place] [facility] ([facility]) M [phone] O [phone] Subjective Principal diagnosis: Acute hypoxemic respiratory failure; Septic shock; Ac. encephalopathy; ALEJANDRO Objective - Exam Narrative Exam: General appearance: Alert in no acute distress Eyes: anicteric sclerae, moist conjunctivae; no lid-lag; PERRLA lid edema HENT: Normocephalic, Atraumatic; normal external ears, nares open, oropharynx limited Neck: supple, tracheal midline, no JVD Lungs: Diminished breath sounds bilaterally CV: RRR no murmur Abdomen: Soft, non-tender Extremities: Extensive bilateral leg edema, chronic skin changes Skin: Extensive skin desquamation Psych: Alert Neuro: Alert Rectal tube with diarrhea - Constitutional Vitals: Vital Signs Temp Pulse Resp BP Pulse Ox 98.8 F 69 17 114/65 100 03/21/20 09:30 03/21/20 09:30 03/21/20 09:30 03/21/20 09:30 03/21/20 09:30 Temperature -Last 24 Hours Temperature 98.8 F Temperature 97.4 F Temperature 97.4 F Temperature 94 F - Labs CBC & Chem 7: 03/21/20 03:55 03/21/20 09:15 Labs: Abnormal lab results 03/20/20 03/20/20 03/20/20 Range/Units 12:10 13:30 16:00 WBC (4.5-11.0) K/mm3 RBC (3.65-5.03) M/mm3 Hgb (11.8-15.2) gm/dl Hct (35.5-45.6) % RDW (13.2-15.2) % Plt Count (140-440) K/mm3 ABG pO2 (80.0-90.0) mm Hg ABG O2 Saturation (95.0-99.0) % ABG Base Excess (-2.0-3.0) mmol/L ABG Hemoglobin (14.0-18.0) gm/dl Oxyhemoglobin (95.0-99.0) % Sodium 146 H (137-145) mmol/L Potassium 3.3 L (3.6-5.0) mmol/L Chloride (98-107) mmol/L BUN 72 H (9-20) mg/dL Creatinine 5.1 H (0.8-1.3) mg/dL Glucose 150 H (75-100) mg/dL POC Glucose 164 H (70-105) mg/dL Calcium 8.2 L (8.4-10.2) mg/dL Urine WBC (Auto) 153.0 H (0.0-6.0) /HPF Crossmatch 03/20/20 03/20/20 03/21/20 Range/Units 16:35 17:23 00:48 WBC (4.5-11.0) K/mm3 RBC (3.65-5.03) M/mm3 Hgb (11.8-15.2) gm/dl Hct (35.5-45.6) % RDW (13.2-15.2) % Plt Count (140-440) K/mm3 ABG pO2 63.9 L (80.0-90.0) mm Hg ABG O2 Saturation 90.9 L (95.0-99.0) % ABG Base Excess -2.6 L (-2.0-3.0) mmol/L ABG Hemoglobin 9.5 L (14.0-18.0) gm/dl Oxyhemoglobin 89.3 L (95.0-99.0) % Sodium (137-145) mmol/L Potassium (3.6-5.0) mmol/L Chloride (98-107) mmol/L BUN (9-20) mg/dL Creatinine (0.8-1.3) mg/dL Glucose (75-100) mg/dL POC Glucose 191 H 158 H (70-105) mg/dL Calcium (8.4-10.2) mg/dL Urine WBC (Auto) (0.0-6.0) /HPF Crossmatch 03/21/20 03/21/20 03/21/20 Range/Units 03:55 03:55 05:37 WBC 22.4 H (4.5-11.0) K/mm3 RBC 2.06 L (3.65-5.03) M/mm3 Hgb 6.3 L (11.8-15.2) gm/dl Hct 19.2 L* (35.5-45.6) % RDW 17.7 H (13.2-15.2) % Plt Count 86 L (140-440) K/mm3 ABG pO2 (80.0-90.0) mm Hg ABG O2 Saturation (95.0-99.0) % ABG Base Excess (-2.0-3.0) mmol/L ABG Hemoglobin (14.0-18.0) gm/dl Oxyhemoglobin (95.0-99.0) % Sodium 148 H (137-145) mmol/L Potassium 2.8 L* (3.6-5.0) mmol/L Chloride 108.2 H (98-107) mmol/L BUN 52 H (9-20) mg/dL Creatinine 3.8 H (0.8-1.3) mg/dL Glucose 130 H (75-100) mg/dL POC Glucose 159 H (70-105) mg/dL Calcium 7.6 L (8.4-10.2) mg/dL Urine WBC (Auto) (0.0-6.0) /HPF Crossmatch 03/21/20 03/21/20 Range/Units 06:43 09:15 WBC (4.5-11.0) K/mm3 RBC (3.65-5.03) M/mm3 Hgb (11.8-15.2) gm/dl Hct (35.5-45.6) % RDW (13.2-15.2) % Plt Count (140-440) K/mm3 ABG pO2 (80.0-90.0) mm Hg ABG O2 Saturation (95.0-99.0) % ABG Base Excess (-2.0-3.0) mmol/L ABG Hemoglobin (14.0-18.0) gm/dl Oxyhemoglobin (95.0-99.0) % Sodium (137-145) mmol/L Potassium 3.5 L D (3.6-5.0) mmol/L Chloride (98-107) mmol/L BUN 56 H (9-20) mg/dL Creatinine 4.3 H (0.8-1.3) mg/dL Glucose 104 H (75-100) mg/dL POC Glucose (70-105) mg/dL Calcium (8.4-10.2) mg/dL Urine WBC (Auto) (0.0-6.0) /HPF Crossmatch See Detail
[2020-03-21] MEDS: FAMOTIDINE 20 MG/2 ML INJ IV SCH (13:21)
[2020-03-21] MEDS: HEPARIN 5,000 UNIT/1 ML VIAL SUB-Q SCH ×2 (13:22→22:20)
[2020-03-21] MEDS: SODIUM BICARBONATE 650 MG TAB PO SCH ×4 (13:22→22:20)
[2020-03-21] MEDS: MIDODRINE 5 MG TAB PO SCH ×3 (13:26→16:38)
--- NOTE | 2020-03-21 13:29 | Progress Note ---
Assessment and Plan Assessment and plan: Assessment and plan: Patient is a 79-year-old male with a past medical history of encephalopathy, hypertension, generalized weakness, diabetes type 2, chronic lipidemia, DVT, respiratory failure with hypoxia, CVA, and CKD presents [facility] with complaint of sepsis with hypotension, alteration mental status, and her labs collected yesterday that resulted today showing a WBC count of 36. Of note patient was recently discharged from the hospital with ertapenem 1 g IV daily ESBL E. coli bacteremia with started on March 11 with plan in date March 21 via PICC line Patient unfortunately continues to worsen despite antibiotic treatment is nonverbal not able to follow any commands and now experiencing multiorgan failure. retirement vital signs BP of 66/36, heart rate 62, respiratory rate 16, blood glucose 230, and patient presents on 3 L of nasal cannula oxygen satting 98% Patient had a negative Covid test during admission here March 02. 03/17 Patient also found to have acute kidney injury with acute tubular necrosis, toxic metabolic encephalopathy, metabolic acidosis and hypothermia. The patient is critically ill with a poor prognosis, sepsis protocol was initiated with an ICU admission. Patient was seen by fermenting cellars receiver pressors were increased with also bicarb drip started. Unfortunately bicarb drip had to be held due to PICC line compatibility. A new PICC line has been inserted this morning. Admitting physician did speak with the son and discussed prognosis. I did also call the son this morning who informs me that the brother who is physician is coming into town and will give us further recommendation on arrival. Patient has been started on a third pressor which is epinephrine at this time. To my examination awaiting nephrology evaluation. We will proceed with giving additional 2 L of fluids and also obtain a stat echocardiogram to see what patient's cardiac level is. Based on ejection fraction patient may benefit from dobutamine. Will place BiPAP on standby and if need be and family does not opposed to continued full code we will proceed with likely intubation so the patient can be adequately volume resuscitated. -Continue empiric antibiotic coverage. ID consultation. Critical care assistance and input noted. Fluid Resuscitation As Noted above Continue Diet. Change IV access for triple-lumen PICC line. Will follow cultures. We will also obtain wound care consultation. 03/18: Continue current management, may need dialysis but not a candidate for HD due to 3 Pressors. NO Diarrhea at this time. If not improving respiratory lopez may need Intubation. 03/19: Continue supportive care, mental status showing some improvement, still on BIPAP. BP improving will stop Epi and bring down to 2 pressors. Awaiting ECHO. IF continues to have worsening Renal function, May need transfer to CRRT if unable to perform HD. Patients son updated of current clinically status. 03/20: Right femoral catheter-vas cath Placed for HD. Hypokalemia to be corrected, will give Potassium 20meq. Continue IV abx, no growth so far noted, wean pressors as tolerated, may consider adding Midodrine. WBC trending down. Prior noted Ecoli Bactermia is not noted so far on the blood culture. Continue HD as tolerated, Sodium bicarb drip due to acidosis. 03/21. He has no complaints today. Patient continues to ask when he will be discharged. Labs showed persistent hypokalemia. Continue potassium replacement. Hemoglobin 6.0. Patient will get transfused 1 unit PRBC. Assessment and plan Septic shock This has resolved C. difficile infection Continue p.o. vancomycin 250 mg every 6 hours for 10 days ID recommendations appreciated Anemia OF Chronic Disease Monitor hemoglobin Transfused as needed to hemoglobin 7 Electrolyte abnormalities-hypokalemia, hypomagnesemia Replete as needed Acute renal failure likely due to ischemic ATN Now on hemodialysis. Nephrology recommendations appreciated Metabolic Acidosis Resolved. Discontinue sodium bicarb and monitor Acute hypoxic Respiratory failure. Continue oxygen supplementation Acute toxic metabolic encephalopathy Improved Ruled out COVID-19 Hypothermia Resolved Thrombocytopenia Possibly from ongoing infection Trend platelets DC heparin for now and send HIT antibody Start argatroban Patient stable to be transferred to stepdown PT/OT ordered Speech evaluation -plan to remove NG tube DVT prophylaxis -Hold heparin for now. Argatroban for now Patient is full code History Interval history: Patient seen and examined at bedside this morning. Patient asking when he can be discharged. Labs reviewed Hospitalist Physical - Physical exam Narrative exam: VITAL SIGNS: Reviewed. GENERAL: The patient critically ill, vital signs as documented. On oxygen- nasal cannula HEAD: No signs of head trauma. EYES: Pupils are equal. MOUTH: Oropharynx is normal otherwise dry. NECK: No adenopathy, no JVD. CHEST: Chest with diminished breath sounds bilaterally. No wheezes, rales, or rhonchi. CARDIAC: Regular rate and rhythm. S1 and S2, without murmurs, gallops, or rubs. VASCULAR: chronic Edema. Peripheral pulses normal and equal in all extremities. ABDOMEN: Soft, non tender and non distended. No rebound or guarding, and no masses palpated. Bowel Sounds normal. MUSCULOSKELETAL: Chronic venous changes bilateral lower ext NEUROLOGIC EXAM: More responsive today compared with yesterday as per notes PSYCHIATRIC: Unable to examine SKIN: Multiple excoriations multiple pressure ulcers, detail exam as documented in skin assessment - Constitutional Vitals: Temp Pulse Resp BP Pulse Ox 94.3 F L 75 15 116/71 100 03/21/20 13:07 03/21/20 13:07 03/21/20 13:07 03/21/20 13:07 03/21/20 13:07 HEART Score - HEART Score Troponin: Troponin T 0.047 ng/mL (0.00-0.029) H D 03/16/20 22:25 Results - Labs CBC & Chem 7: 03/22/20 04:43 03/22/20 04:00 Labs: Laboratory Last Values WBC 22.4 K/mm3 (4.5-11.0) H 03/21/20 03:55 RBC 2.06 M/mm3 (3.65-5.03) L 03/21/20 03:55 Hgb 6.3 gm/dl (11.8-15.2) L 03/21/20 03:55 Hct 19.2 % (35.5-45.6) L* 03/21/20 03:55 MCV 93 fl (84-94) 03/21/20 03:55 MCH 31 pg (28-32) 03/21/20 03:55 MCHC 33 % (32-34) 03/21/20 03:55 RDW 17.7 % (13.2-15.2) H 03/21/20 03:55 Plt Count 86 K/mm3 (140-440) L 03/21/20 03:55 Add Manual Diff Complete 03/17/20 11:13 Total Counted 100 03/17/20 11:13 Seg Neutrophils % Machine Operator Packaging 03/17/20 11:13 Seg Neuts % (Manual) 88.0 % (40.0-70.0) H 03/17/20 11:13 Band Neutrophils % 6.0 % 03/17/20 11:13 Lymphocytes % (Manual) 1.0 % (13.4-35.0) L 03/17/20 11:13 Reactive Lymphs % (Man) 0 % 03/17/20 11:13 Monocytes % (Manual) 2.0 % (0.0-7.3) 03/17/20 11:13 Eosinophils % (Manual) 0 % (0.0-4.3) 03/17/20 11:13 Basophils % (Manual) 0 % (0.0-1.8) 03/17/20 11:13 Metamyelocytes % 3.0 % 03/17/20 11:13 Myelocytes % 0 % 03/17/20 11:13 Promyelocytes % 0 % 03/17/20 11:13 Blast Cells % 0 % 03/17/20 11:13 Nucleated RBC % 13.0 % (0.0-0.9) H 03/17/20 11:13 Seg Neutrophils # Man 30.3 K/mm3 (1.8-7.7) H 03/17/20 11:13 Band Neutrophils # 2.1 K/mm3 03/17/20 11:13 Lymphocytes # (Manual) 0.3 K/mm3 (1.2-5.4) L 03/17/20 11:13 Abs React Lymphs (Man) 0.0 K/mm3 03/17/20 11:13 Monocytes # (Manual) 0.7 K/mm3 (0.0-0.8) 03/17/20 11:13 Eosinophils # (Manual) 0.0 K/mm3 (0.0-0.4) 03/17/20 11:13 Basophils # (Manual) 0.0 K/mm3 (0.0-0.1) 03/17/20 11:13 Metamyelocytes # 1.0 K/mm3 03/17/20 11:13 Myelocytes # 0.0 K/mm3 03/17/20 11:13 Promyelocytes # 0.0 K/mm3 03/17/20 11:13 Blast Cells # 0.0 K/mm3 03/17/20 11:13 Pathologist Review 03/16/20 14:22 WBC Morphology Not Reportable 03/17/20 11:13 Hypersegmented Neuts Not Reportable 03/17/20 11:13 Hyposegmented Neuts Not Reportable 03/17/20 11:13 Hypogranular Neuts Not Reportable 03/17/20 11:13 Smudge Cells Not Reportable 03/17/20 11:13 Toxic Granulation Not Reportable 03/17/20 11:13 Toxic Vacuolation Not Reportable 03/17/20 11:13 Dohle Bodies Not Reportable 03/17/20 11:13 Pelger-Huet Anomaly Not Reportable 03/17/20 11:13 Santiago Rods Not Reportable 03/17/20 11:13 Platelet Estimate Consistent w auto 03/17/20 11:13 Clumped Platelets Rare 03/17/20 11:13 Plt Clumps, EDTA Not Reportable 03/17/20 11:13 Large Platelets Not Reportable 03/17/20 11:13 Giant Platelets Not Reportable 03/17/20 11:13 Platelet Satelliting Not Reportable 03/17/20 11:13 Plt Morphology Comment Not Reportable 03/17/20 11:13 RBC Morphology Not Reportable 03/17/20 11:13 Dimorphic RBCs Not Reportable 03/17/20 11:13 Polychromasia Not Reportable 03/17/20 11:13 Hypochromasia Not Reportable 03/17/20 11:13 Poikilocytosis Not Reportable 03/17/20 11:13 Anisocytosis 2+ 03/17/20 11:13 Microcytosis Few 03/17/20 11:13 Macrocytosis 1+ 03/17/20 11:13 Spherocytes Not Reportable 03/17/20 11:13 Pappenheimer Bodies Not Reportable 03/17/20 11:13 Sickle Cells Not Reportable 03/17/20 11:13 Target Cells Not Reportable 03/17/20 11:13 Tear Drop Cells Not Reportable 03/17/20 11:13 Ovalocytes Not Reportable 03/17/20 11:13 Helmet Cells Not Reportable 03/17/20 11:13 [place] Bodies Not Reportable 03/17/20 11:13 [place] Rings Not Reportable 03/17/20 11:13 [place] Cells Not Reportable 03/17/20 11:13 Bite Cells Not Reportable 03/17/20 11:13 Crenated Cell Not Reportable 03/17/20 11:13 Elliptocytes Not Reportable 03/17/20 11:13 Acanthocytes (Spur) Not Reportable 03/17/20 11:13 Rouleaux Not Reportable 03/17/20 11:13 Hemoglobin C Crystals Not Reportable 03/17/20 11:13 Schistocytes Not Reportable 03/17/20 11:13 Malaria parasites Not Reportable 03/17/20 11:13 Isauro Bodies Not Reportable 03/17/20 11:13 Hem Pathologist Commnt No 03/17/20 11:13 PT 15.3 Sec. (12.2-14.9) H 03/19/20 Unknown INR 1.18 (0.87-1.13) H 03/19/20 Unknown APTT 51.3 Sec. (24.2-36.6) H 03/16/20 14:27 ABG pH 7.378 pH Units (7.350-7.450) 03/20/20 16:35 POC ABG pCO2 37.3 mmHg (32.0-48.0) 03/18/20 12:14 ABG pCO2 38.6 mm Hg 03/20/20 16:35 POC ABG pO2 67.4 mmHg (83-108) L 03/18/20 12:14 ABG pO2 63.9 mm Hg (80.0-90.0) L 03/20/20 16:35 POC ABG HCO3 14.1 03/18/20 12:14 ABG HCO3 22.2 mmol/L (20.0-26.0) 03/20/20 16:35 ABG O2 Saturation 90.9 % (95.0-99.0) L 03/20/20 16:35 ABG O2 Content 12.0 (0.0-44) 03/20/20 16:35 POC ABG Base Excess -13.0 03/18/20 12:14 ABG Base Excess -2.6 mmol/L (-2.0-3.0) L 03/20/20 16:35 ABG Hemoglobin 9.5 gm/dl (14.0-18.0) L 03/20/20 16:35 ABG Carboxyhemoglobin 1.3 % (0.0-5.0) 03/20/20 16:35 ABG Methemoglobin 0.5 % (0.0-1.5) 03/20/20 16:35 ABG Sodium 138.8 mmol/L (136.0-145.0) 03/18/20 12:14 ABG Potassium 3.3 mmol/L (3.40-4.50) L 03/18/20 12:14 ABG Chloride 112.0 mmol/L (98-107) H 03/18/20 12:14 ABG Glucose 355 mg/dL (65-95) H 03/18/20 12:14 Oxyhemoglobin 89.3 % (95.0-99.0) L 03/20/20 16:35 FiO2 35 % 03/20/20 16:35 Sodium 142 mmol/L (137-145) 03/21/20 09:15 Potassium 3.5 mmol/L (3.6-5.0) L D 03/21/20 09:15 Chloride 102.0 mmol/L (98-107) 03/21/20 09:15 Carbon Dioxide 28 mmol/L (22-30) 03/21/20 09:15 Anion Gap 16 mmol/L 03/21/20 09:15 BUN 56 mg/dL (9-20) H 03/21/20 09:15 Creatinine 4.3 mg/dL (0.8-1.3) H 03/21/20 09:15 Estimated GFR 16 ml/min 03/21/20 09:15 BUN/Creatinine Ratio 13 % 03/21/20 09:15 Glucose 104 mg/dL (75-100) H 03/21/20 09:15 POC Glucose 157 mg/dL (70-105) H 03/21/20 12:55 Lactic Acid 1.80 mmol/L (0.7-2.0) 03/16/20 Unknown Calcium 8.5 mg/dL (8.4-10.2) 03/21/20 09:15 Phosphorus 3.80 mg/dL (2.5-4.5) D 03/21/20 03:55 Magnesium 1.70 mg/dL (1.7-2.3) 03/20/20 06:35 Total Bilirubin 0.20 mg/dL (0.1-1.2) 03/16/20 14:22 AST 22 units/L (5-40) 03/16/20 14:22 ALT 8 units/L (7-56) 03/16/20 14:22 Alkaline Phosphatase 224 units/L (35-129) H 03/16/20 14:22 Total Creatine Kinase 373 units/L (55-170) H 03/17/20 11:13 Troponin T 0.047 ng/mL (0.00-0.029) H D 03/16/20 22:25 Total Protein 5.4 g/dL (6.3-8.2) L 03/16/20 14:22 Albumin 1.9 g/dL (3.9-5) L 03/16/20 14:22 Albumin/Globulin Ratio 0.5 % 03/16/20 14:22 Triglycerides 107 mg/dL (2-149) 03/16/20 14:23 Cholesterol 95 mg/dL (50-199) 03/16/20 14:23 LDL Cholesterol Direct 35 mg/dL (50-130) L 03/16/20 14:23 HDL Cholesterol 37 mg/dL (40-59) L 03/16/20 14:23 Cholesterol/HDL Ratio 2.56 % 03/16/20 14:23 Procalcitonin 9.59 ng/mL (<0.15) 03/17/20 18:53 Arterial Blood Glucose 355 mg/dL (65-95) H 03/18/20 12:14 Arterial Blood Ionized Calcium 4.5 mg/dL (4.6-5.3) L 03/18/20 12:14 Urine Color Yellow (Yellow) 03/20/20 13:30 Urine Turbidity Turbid (Clear) 03/20/20 13:30 Urine pH 5.0 (5.0-7.0) 03/20/20 13:30 Ur Specific [place] 1.011 (1.003-1.030) 03/20/20 13:30 Urine Protein 100 mg/dl mg/dL (Negative) 03/20/20 13:30 Urine Glucose (UA) Neg mg/dL (Negative) 03/20/20 13:30 Urine Ketones Neg mg/dL (Negative) 03/20/20 13:30 Urine Blood Mod (Negative) 03/20/20 13:30 Urine Nitrite Neg (Negative) 03/20/20 13:30 Urine Bilirubin Neg (Negative) 03/20/20 13:30 Urine Urobilinogen < 2.0 mg/dL (<2.0) 03/20/20 13:30 Ur Leukocyte Esterase Mod (Negative) 03/20/20 13:30 Urine WBC (Auto) 153.0 /HPF (0.0-6.0) H 03/20/20 13:30 Urine RBC (Auto) 130.0 /HPF (0.0-6.0) 03/20/20 13:30 U Epithel Cells (Auto) 1.0 /HPF (0-13.0) 03/20/20 13:30 Urine Bacteria (Auto) 2+ /HPF (Negative) 03/20/20 13:30 Urine WBC Clumps 3+ /HPF 03/17/20 11:40 Urine Mucus Few /HPF 03/20/20 13:30 Urine Yeast (Budding) 3+ /HPF 03/20/20 13:30 Urine Creatinine 139.3 mg/dL (0.1-20.0) H 03/17/20 Unknown Protein/Creatinin Ratio 2.35 03/17/20 Unknown Urine Sodium 53 mmol/L 03/17/20 Unknown Urine Total Protein 328 mg/dL (5-11.8) H 03/17/20 Unknown Random Vancomycin 8.4 ug/mL (0-40.0) 03/18/20 04:40 C. difficile Tox (PCR) Positive (Negative) 03/19/20 23:59 Coronavirus (PCR) Negative (Negative) 03/17/20 09:03 Hepatitis A IgM Ab Non-reactive (NonReactive) 03/20/20 16:00 Hep Bs Antigen Non-reactive (Negative) 03/20/20 16:00 Hep B Core IgM Ab Non-reactive (NonReactive) 03/20/20 16:00 Hepatitis C Antibody Non-reactive (NonReactive) 03/20/20 16:00 Blood Type O POSITIVE 03/21/20 06:43 Antibody Screen Negative 03/21/20 06:43 Crossmatch See Detail 03/21/20 06:43 Microbiology: Microbiology 03/20/20 Unknown Urine,Catheterized - Indwelling Catheter Urine Culture - Preliminary 03/16/20 14:15 Peripheral/Venous Blood Culture - Preliminary NO GROWTH AFTER 4 DAYS 03/16/20 14:15 Peripheral/Venous Blood Culture - Preliminary NO GROWTH AFTER 4 DAYS 03/19/20 12:00 Stool Stool Culture - Preliminary - Diagnostic Impressions Diagnostic Impressions: Echocardiogram 03/17/20 09:13 Transthoracic Echocardiogram Indication: Cardiogenic Shock BP: 126/62 Conclusions *Global left ventricular systolic function is normal. *Mild to moderate concentric left ventricular hypertrophy is observed. *The estimated ejection fraction is 55-60%. *The right ventricle is severely dilated. *The right ventricular global systolic function is moderately reduced. *Flattened in systole consistent with right ventricular pressure overload. *There is moderate aortic stenosis. *The mean gradient of the aortic valve is 20.93 mmHg. *Moderate aortic leaflet calcification is visualized. *There is mild aortic regurgitation. *There is mild mitral regurgitation. *There is mild tricuspid regurgitation. *The right ventricular systolic pressure is calculated at 46 mmHg. *There is trace pulmonic regurgitation. *A left pleural effusion is present. *There is no pericardial effusion. Findings Procedure Info: The study quality is good. Left Ventricle: The left ventricular chamber size is normal. Mild to moderate concentric left ventricular hypertrophy is observed. Global left ventricular systolic function is normal. The estimated ejection fraction is 55-60%. Abnormal left ventricular diastolic filling is observed, consistent with impaired relaxation. Left Atrium: The left atrium is normal in size with no visual thrombus identified. Right Ventricle: The right ventricle is severely dilated. The right ventricular global systolic function is moderately reduced. Flattened in systole consistent with right ventricular pressure overload. Right Atrium: The right atrium is moderately dilated. Aortic Valve: The aortic valve is trileaflet. Moderate aortic leaflet calcification is visualized. There is mild aortic regurgitation. There is moderate aortic stenosis. The mean gradient of the aortic valve is 20.93 mmHg. The peak instantaneous gradient of the aortic valve is 48.15 mmHg. The aortic valve area, by VTI's, is calculated at 1.031449912691 cm2. Mitral Valve: There is posterior mitral annular calcification. The mitral valve leaflets are mildly thickened. There is mild mitral regurgitation. There is no evidence of mitral stenosis. Tricuspid Valve: There is mild tricuspid regurgitation. The right ventricular systolic pressure is calculated at 46 mmHg. There is no tricuspid stenosis. Pulmonic Valve: The pulmonic valve appears normal. There is trace pulmonic regurgitation. There is no pulmonic stenosis. Pericardium: There is no pericardial effusion. A left pleural effusion is present. Aorta: The aorta appears normal. Pulmonary Artery: The main pulmonary artery appears normal. Venous: The inferior vena cava is dilated. There is less than 50% respiratory change in the inferior vena cava dimension. Measurements Chambers 2D Name Value Normal Range IVSd (2D) 1.24 cm (0.6 - 1.1) LVPWd (2D) 1.28 cm (0.6 - 1.1) LVIDd (2D) 4.39 cm (3.7 - 5.6) LVIDs (2D) 2.74 cm (2 - 3.8) LV FS (2D) 37.56 % - EF Teichholz (2D) 67.84 % - Ao root diameter (2D) 3.09 cm (2 - 3.7) Volumes/Mass Name Value Normal Range LA ESV SP 4CH (A/L) 61.48 ml - LA ESV SP 2CH (A/L) 74.82 ml - LA ESV BP (A/L) 70.19 ml - LA ESV BP (A/L) index 29.49 ml/m2 - LA ESV SP 4CH (MOD) 60.86 ml - LA ESV SP 2CH (MOD) 76.42 ml - LA ESV BP (MOD) 70.33 ml - LA ESV BP (MOD) index 29.55 ml/m2 - LV EDV SP 4CH (MOD) 54.09 ml - LV ESV SP 4CH (MOD) 19.25 ml - EF SP 4CH (MOD) 64.4 % - Diastolic/Systolic Function Name Value Normal Range MV E-wave Vmax 0.67 m/sec - MV deceleration time 137.49 msec - MV A-wave Vmax 0.88 m/sec - MV E:A ratio 0.77 ratio - Aortic Valve Name Value Normal Range AV Vmax 3.23 m/sec - AV VTI 54.14 cm - AV peak gradient 48.15 mmHg - AV mean gradient 20.93 mmHg - LVOT diameter 2.11 cm - LVOT Vmax 0.92 m/sec - LVOT VTI 17.92 cm - LVOT peak gradient 3.42 mmHg - LVOT mean gradient 1.46 mmHg - SV LVOT 62.51 ml - NAVIN (continuity Vmax) 1 cm2 - NAVIN (continuity VTI) 1.15 cm2 - AR PHT 720.82 msec - AR peak gradient 15.53 mmHg - Ascending Ao 3.71 cm - Tricuspid Valve Name Value Normal Range TV E-wave Vmax 0.51 m/sec - TR Vmax 2.8 m/sec - TR peak gradient 31.37 mmHg - RAP 15 mmHg - RVSP 46 mmHg - IVC diameter 2.4 cm (1.2 - 2.3) Pulmonic Valve/Qp:Qs Name Value Normal Range PV Vmax 1.09 m/sec - PV peak gradient 4.78 mmHg - RVOT Vmax 0.7 m/sec - RVOT VTI 13.89 cm - RVOT peak gradient 1.96 mmHg - PV acceleration time 95.15 msec - Cunningham/IV: Voiding Method Indwelling Catheter IV Catheter Type [right wrist] Peripheral IV IV Catheter Type [Right VAS Cath Femoral] IV Catheter Type [Right Upper PICC Line arm] IV Catheter Type [Left Upper PICC Line arm] Active Medications - Current Medications Current Medications: Generic Name Dose Route Start Last Admin Trade Name Freq PRN Reason Stop Dose Admin Acetaminophen 650 mg 03/19/20 18:21 03/19/20 18:39 Tylenol FEEDTUBE 650 mg Q6H PRN Administration Pain, Mild (1-3) Albuterol 2.5 mg 03/16/20 17:00 Proventil IH Q3HRT PRN Shortness Of Breath Lipase/Protease/Amylase 1 each 03/17/20 17:12 Pancreaze 10,500 Unit FEEDTUBE PRN PRN For Clogged Feeding Tube Epoetin Colin 10,000 unit 03/21/20 09:00 Procrit IV DAYLIN IDRIS Famotidine 20 mg 03/18/20 10:00 03/21/20 13:21 Pepcid IV 20 mg DAILY IDRIS Administration Heparin Sodium (Porcine) 5,000 unit 03/16/20 22:00 03/21/20 13:22 Heparin SUB-Q Not Given Q12HR IDRIS Hydromorphone HCl 0.25 mg 03/16/20 17:30 Dilaudid IV Q4H PRN Pain, Moderate (4-6) Hydrophilic Ointment 1 applic 03/21/20 07:50 Aquaphor TP Q12HR PRN DRY SKIN Vasopressin 20 unit/ Sodium 101 mls @ 9.09 mls/hr 03/16/20 20:00 03/20/20 04:41 Chloride IV 0.03 units/min TITR IDRIS 9.09 mls/hr Administration Protocol 0.03 UNITS/MIN Norepinephrine 8 mg/ Sodium 250 mls @ 3.75 mls/hr 03/16/20 23:00 03/20/20 11:20 Chloride IV 8 mcg/min TITR IDRIS 15 mls/hr Administration Protocol 2 MCG/MIN Epinephrine 8 mg/ Sodium 250 mls @ 3.75 mls/hr 03/17/20 04:00 03/19/20 09:06 Chloride IV 0 mcg/min TITR IDRIS 0 mls/hr Titration Protocol 2 MCG/MIN Sodium Chloride 100 mls @ 999 mls/hr 03/20/20 15:38 Nacl 0.9% IV DAYLIN PRN Hypotension Metronidazole 500 mg in 100 mls @ 100 mls/hr 03/21/20 14:00 Flagyl 500 Mg/100 Ml IV 04/04/20 06:59 Q8HR IDRIS Protocol Insulin Glargine 20 units 03/18/20 22:00 03/20/20 23:17 Lantus SUB-Q 20 units QHS IDRIS Administration Insulin Human Lispro 0 unit 03/18/20 12:00 03/21/20 13:23 Humalog SUB-Q 3 unit Q6HR IDRIS Administration Protocol Methylprednisolone Sodium Succinate 40 mg 03/16/20 22:00 03/21/20 07:34 Solu-Medrol IV Not Given Q8HR IDRIS Midodrine 10 mg 03/20/20 12:00 03/21/20 13:26 Proamatine PO 10 mg TID@0800,1200,1600 IDRIS Administration Simple Syrup 15 ml 03/17/20 17:12 Simple Syrup FEEDTUBE PRN PRN Hypoglycemia Simple Syrup 30 ml 03/17/20 17:12 Simple Syrup FEEDTUBE PRN PRN Hypoglycemia Sodium Bicarbonate 325 mg 03/17/20 17:12 Sodium Bicarbonate FEEDTUBE PRN PRN For Clogged Feeding Tube Sodium Bicarbonate 1,300 mg 03/18/20 14:00 03/21/20 13:22 Sodium Bicarbonate PO 1,300 mg QID IDRIS Administration Sodium Chloride 10 ml 03/16/20 22:00 03/21/20 13:23 Sodium Chloride Flush Syringe 10 Ml IV 10 ml BID IDRIS Administration Sodium Chloride 10 ml 03/16/20 17:00 Sodium Chloride Flush Syringe 10 Ml IV PRN PRN LINE FLUSH Vancomycin HCl 250 mg 03/20/20 12:00 03/21/20 13:21 Vancomycin Po PO 04/03/20 06:01 250 mg Q6HR IDRIS Administration Nutrition/Malnutrition Assess - Dietary Evaluation Nutrition/Malnutrition Findings: Nutrition Notes Start: 03/18/20 09: 15 Freq: Status: Active Protocol: Document 03/20/20 12:25 (Rec: 03/20/20 12:37 MK [id number]) Nutrition Notes Need for Assessment 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 Maynor score 12. Pt is on multiple pressors therefore TF is at 10 ml/hr. Pt with 4+ pitting edema on lower extremities. Per chart, pt having diarrhea. Pt was receiving Vancomyocin. Percent of energy/protein needs met: 24%/24% Burn Absent Trauma Absent Current % PO Negligible Minimum of two criteria No Fluid Accumulation Moderate to Severe (severe) #1 Nutrition Diagnosis Inadequate oral intake Diagnosis Progress(for reassessment Continues documentation) Is patient on ventilator? No Is Patient Ambulatory and/or Out of Bed No REE-([facility]-confined to bed) 2330.880 Kcal/Kg value to use for calculation 15 Approximate Energy Requirements Using 1815 kcal/Kg Calculation Used for Recommendations Kcal/kg Additional Notes Protein: 80-120g/kg (0.8-1.2g/ kg using AdjBW 100kg) Fluid: 1ml/kcal or per MD Nutrition Intervention Change Diet Order: Continue TF Nutrition Support: Nepro 1.8 at 40ml/hr Flush 170ml q4h Kcal 1,728 Protein (gm) 78 Fluid (mL) 698 Goal #1 TF tolerance Goal #2 Meet at least 80% of energy and protein needs via TF Anticipated Discharge Needs: unable to determine at this time Follow-Up By: 03/22/20 Additional Comments FU for TF tolerance, K, phos
[2020-03-21] MEDS: metroNIDAZOLE/NS 500 MG/100 ML 500 MG/100 ML BAG IV SCH ×2 (14:49→22:19)
[2020-03-21] MEDS: INSULIN GLARGINE 100 UNITS/ML SUB-Q SCH (22:40)
[2020-03-22] MEDS: INSULIN LISPRO 100 UNIT/ML VIAL 3 mL SUB-Q SCH ×4 (00:02→17:18)
[2020-03-22] MEDS: VANCOMYCIN 250 MG/10 ML ORAL LIQD PO SCH ×5 (00:02→23:31)
[2020-03-22 06:03] LABS: Hematocrit 29.1 % (35.5-45.6); Hemoglobin 9.6 gm/dl (11.8-15.2); Mean Corpuscular HGB Conc 33 % (32-34); Mean Corpuscular Volume 92 fl (84-94); Red Blood Count 3.16 M/mm3 (3.65-5.03); Red Cell Distribution Width 18.2 % (13.2-15.2)
[2020-03-22 06:09] LABS: Platelet Count 86 K/mm3 (140-440)
[2020-03-22] MEDS: metroNIDAZOLE/NS 500 MG/100 ML 500 MG/100 ML BAG IV SCH ×3 (06:10→22:30)
[2020-03-22] MEDS: methylPREDNISolone Sod Succinate 40 MG/1 ML INJ IV SCH ×3 (06:16→22:31)
[2020-03-22 06:26] LABS: Calcium 8.3 mg/dL (8.4-10.2)
[2020-03-22] MEDS ORDERED: MAGNESIUM SULFATE 2 GM/50 ML BAG IV NR (08:00)
[2020-03-22] MEDS: POTASSIUM CHLORIDE 10 MEQ 10 MEQ/100 ML BAG IV SCH ×4 (08:20→11:27)
[2020-03-22] MEDS: MIDODRINE 5 MG TAB PO SCH ×3 (08:21→16:26)
[2020-03-22] MEDS: HEPARIN 5,000 UNIT/1 ML VIAL SUB-Q SCH (10:31)
[2020-03-22] MEDS: SODIUM BICARBONATE 650 MG TAB PO SCH ×3 (10:32→17:42)
[2020-03-22] MEDS: FAMOTIDINE 20 MG/2 ML INJ IV SCH (10:32)
--- NOTE | 2020-03-22 12:38 | Progress Note ---
Assessment and Plan Cultures: Blood cultures 03/16/2020 no growth today Assessment: 79 years old male with history of hypertension, diabetes mellitus, chronic kidney disease, previous CVA, chronic leg lymphedema, fpc res ident, known to our service due to previous ESBL E. coli bacteremia from UTI on 03/02/2020, admitted on due to 24 hours history of generalized weakness and confusion associated with subjective fever: #Severe sepsis with septic shock: off pressors, remains with leukocytosis. So urce likely severe Cdiff #Severe C diff colitis: was on ertapenem for 2 weeks #Recent ESBL E. coli bacteremia patient was discharged on ertapenem 1 g IV daily for 14 days end date supposed to be 03/20/2020 #Acute encephalopathy: Likely secondary to sepsis/uremia #Acute on chronic kidney failure #Bilateral leg lymphedema with chronic skin changes #Exfoliative rash: ? Drug allergy, seems improving Recommendations: -Continue vancomycin 250 mg PO 4 times daily total 14 days -Continue metronidazole for now -Monitor diarrhea -Follow-up blood cultures -Wound care consultation -remove femoral vas cath and old central line (patient has a midline, a PICC line and a femoral vas cath) Will follow. Ivette Zamudio MD Infectious Diseases [facility] ([facility]) M [phone] O [phone] Subjective Date of service: 03/22/20 Principal diagnosis: Acute hypoxemic respiratory failure; Septic shock; Ac. encephalopathy; ALEJANDRO Interval history: Remains intubated, off pressorts x 48h no fever, +diarrhea with a rectal tube Objective - Exam Narrative Exam: General appearance: Alert in no acute distress Eyes: anicteric sclerae, moist conjunctivae; no lid-lag; PERRLA lid edema HENT: Normocephalic, Atraumatic; normal external ears, nares open, oropharynx limited Neck: supple, tracheal midline, no JVD Lungs: Diminished breath sounds bilaterally CV: RRR no murmur Abdomen: Soft, non-tender Extremities: Extensive bilateral leg edema, chronic skin changes Skin: Extensive skin desquamation Psych: Alert Neuro: Alert Rectal tube with diarrhea Midline PICC line Femoral vas cath - Constitutional Vitals: Vital Signs Temp Pulse Resp BP Pulse Ox 98.3 F 60 12 111/81 100 03/22/20 12:00 03/22/20 12:00 03/22/20 12:00 03/22/20 12:00 03/22/20 12:00 Temperature -Last 24 Hours Temperature 98.3 F Temperature 98.0 F Temperature 98 F Temperature 97.2 F Temperature 97.0 F Temperature 96.9 F Temperature 97.4 F Temperature 94.3 F - Labs CBC & Chem 7: 03/22/20 04:43 03/22/20 04:00 Labs: Abnormal lab results 03/21/20 03/21/20 03/22/20 Range/Units 12:55 17:26 00:16 WBC (4.5-11.0) K/mm3 RBC (3.65-5.03) M/mm3 Hgb (11.8-15.2) gm/dl Hct (35.5-45.6) % RDW (13.2-15.2) % Plt Count (140-440) K/mm3 Potassium (3.6-5.0) mmol/L BUN (9-20) mg/dL Creatinine (0.8-1.3) mg/dL Glucose (75-100) mg/dL POC Glucose 157 H 128 H 148 H (70-105) mg/dL Calcium (8.4-10.2) mg/dL Magnesium (1.7-2.3) mg/dL 03/22/20 03/22/20 03/22/20 Range/Units 04:00 04:43 05:00 WBC 26.2 H (4.5-11.0) K/mm3 RBC 3.16 L (3.65-5.03) M/mm3 Hgb 9.6 L D (11.8-15.2) gm/dl Hct 29.1 L D (35.5-45.6) % RDW 18.2 H (13.2-15.2) % Plt Count 86 L (140-440) K/mm3 Potassium 3.5 L (3.6-5.0) mmol/L BUN 47 H (9-20) mg/dL Creatinine 3.3 H (0.8-1.3) mg/dL Glucose 171 H (75-100) mg/dL POC Glucose (70-105) mg/dL Calcium 8.3 L (8.4-10.2) mg/dL Magnesium 1.60 L (1.7-2.3) mg/dL 03/22/20 Range/Units 05:41 WBC (4.5-11.0) K/mm3 RBC (3.65-5.03) M/mm3 Hgb (11.8-15.2) gm/dl Hct (35.5-45.6) % RDW (13.2-15.2) % Plt Count (140-440) K/mm3 Potassium (3.6-5.0) mmol/L BUN (9-20) mg/dL Creatinine (0.8-1.3) mg/dL Glucose (75-100) mg/dL POC Glucose 183 H (70-105) mg/dL Calcium (8.4-10.2) mg/dL Magnesium (1.7-2.3) mg/dL
--- NOTE | 2020-03-22 12:55 | Progress Note ---
Assessment and Plan Acute hypoxemic respiratory failure Septic shock Pulmonary HTN Acute Toxic metabolic encephalopathy Acute kidney injury (ALEJANDRO) with acute tubular necrosis (ATN) PUI COVID-19 Sacral decubitus ulcer h/o VTE Hypothermia Obesity Adult FTT - doing better overall and will transfer to step down unit - continue BIPAP scheduled qhs with prn daytime use - continue HD/UF per nephrology for toxin and volume clearance - follow c-diff assay and complete oral vancomycin dosing per ID rec's - 2D ECHO shows pulm HTN with septal flattening (ouitpatient w/up) - continue enteral nutritional support for now - [employer] evaluation shortly - continue aspiration precautions (HOB >/= 40 degrees) - strict I's & O's acutely - prn vasopressors for target MAP >/= 65 mmHg - conservative fluid startegies henceforth - continue care as below otherwise; - empiric antiinfective's per ID rec's (IV vanc stopped) - accuchecks with glycemic control per SSI (While critically ill target blood glucose of 140-180 mg/dL; avoid hypoglycemia) - wean supplemental oxygen for target O2 sat's > 90% acutely - bronchodilators with pulmonary hygiene per RT - avoid nephrotoxins, renally dose all medications - avoid benzodiazepine's, reduce the possibility of delirium - prn analgesia per pain score - Maintenance of sleep-wake cycle, avoid delirium - G.I. & VTE prophylaxis - PT/OT/ROM exercises - continue mobility protocols for pressure ulcer prophylaxis - Monitor hemodynamics closely - continue other care per attending / other consultants - discharge planning ongoing concurrently .... Re-evaluate in am & prn CONDITION: CRITICAL PROGNOSIS: GUARDED CODE STATUS: FULL CODE The high probability of a clinically significant, sudden or life-threatening deterioration of the [respiratory, cardiovascular, Renal & neurologic] system(s) required my full and direct attention, intervention and personal management. The aggregate critical care time was [31] minutes without overlap. Time includes spent on; [x] Data Review and interpretation [x] Patient assessment and monitoring of vital signs [x] Documentation [x] Medication orders and management Subjective Date of service: 03/22/20 Principal diagnosis: Acute hypoxemic respiratory failure; Septic shock; Ac. encephalopathy; ALEJANDRO Interval history: Patient is seen today for: Acute hypoxemic respiratory failure; Septic shock; Acute Toxic metabolic encephalopathy; ALEJANDRO; PUI COVID-19; Sacral decubitus ulcer; h/o VTE; Hypothermia; Obesity; Adult FTT Seen and examined at bedside; 24hour events reviewed; nursing and respiratory care staff consulted; no adverse overnight events reported to me; resting peacefully in bed; doing better opverall; off vasopressors; tolerating dialysis; tolerating daytime NIV vacations with only qhs use; no N/V/F/C; still with some delirium / dementia Objective Vital Signs - 12hr 03/22/20 03/22/20 03/22/20 01:00 01:15 01:25 Temperature Pulse Rate 62 66 84 Pulse Rate [ From Monitor] Respiratory 20 20 19 Rate Blood Pressure 128/69 131/71 129/75 O2 Sat by Pulse 98 97 99 Oximetry 03/22/20 03/22/20 03/22/20 01:30 01:45 02:00 Temperature Pulse Rate 61 65 73 Pulse Rate [ 75 From Monitor] Respiratory 20 19 21 Rate Blood Pressure 131/71 133/75 129/80 O2 Sat by Pulse 100 100 98 Oximetry 03/22/20 03/22/20 03/22/20 02:15 02:30 02:45 Temperature Pulse Rate 63 65 58 L Pulse Rate [ From Monitor] Respiratory 20 20 20 Rate Blood Pressure 132/71 132/71 132/72 O2 Sat by Pulse 100 94 100 Oximetry 03/22/20 03/22/20 03/22/20 03:00 03:15 03:16 Temperature Pulse Rate 78 69 63 Pulse Rate [ 75 From Monitor] Respiratory 13 22 20 Rate Blood Pressure 132/72 132/72 O2 Sat by Pulse 87 100 100 Oximetry 03/22/20 03/22/20 03/22/20 03:30 03:44 03:46 Temperature 97.2 F L Pulse Rate 62 60 Pulse Rate [ From Monitor] Respiratory 20 20 Rate Blood Pressure 132/72 132/72 O2 Sat by Pulse 99 Oximetry 03/22/20 03/22/20 03/22/20 04:00 04:10 04:16 Temperature Pulse Rate 64 88 59 L Pulse Rate [ From Monitor] Respiratory 17 21 16 Rate Blood Pressure 132/72 132/72 O2 Sat by Pulse 100 100 99 Oximetry 03/22/20 03/22/20 03/22/20 04:30 04:45 05:00 Temperature Pulse Rate 58 L 57 L 59 L Pulse Rate [ From Monitor] Respiratory 20 20 20 Rate Blood Pressure 132/72 127/67 129/71 O2 Sat by Pulse 85 100 100 Oximetry 03/22/20 03/22/20 03/22/20 05:15 05:30 05:31 Temperature Pulse Rate 59 L 58 L 69 Pulse Rate [ 75 From Monitor] Respiratory 20 20 22 Rate Blood Pressure 144/75 144/75 O2 Sat by Pulse 91 100 100 Oximetry 03/22/20 03/22/20 03/22/20 05:46 06:00 06:16 Temperature Pulse Rate 58 L 61 55 L Pulse Rate [ From Monitor] Respiratory 20 20 20 Rate Blood Pressure 125/75 125/75 122/71 O2 Sat by Pulse 99 100 100 Oximetry 03/22/20 03/22/20 03/22/20 06:30 06:45 07:00 Temperature Pulse Rate 57 L 63 57 L Pulse Rate [ From Monitor] Respiratory 20 20 20 Rate Blood Pressure 122/71 129/76 129/76 O2 Sat by Pulse 99 97 100 Oximetry 03/22/20 03/22/20 03/22/20 07:15 07:30 07:46 Temperature Pulse Rate 57 L 72 62 Pulse Rate [ From Monitor] Respiratory 20 15 14 Rate Blood Pressure 134/72 134/72 123/63 O2 Sat by Pulse 100 100 100 Oximetry 03/22/20 03/22/20 03/22/20 08:00 08:15 08:30 Temperature 98.0 F Pulse Rate 61 68 69 Pulse Rate [ 61 From Monitor] Respiratory 16 15 15 Rate Blood Pressure 123/63 130/69 122/78 O2 Sat by Pulse 100 100 100 Oximetry 03/22/20 03/22/20 03/22/20 08:45 09:00 09:05 Temperature Pulse Rate 60 61 Pulse Rate [ From Monitor] Respiratory 15 13 Rate Blood Pressure 129/67 129/67 O2 Sat by Pulse 100 95 95 Oximetry 03/22/20 03/22/20 03/22/20 09:15 09:30 09:45 Temperature Pulse Rate 63 64 70 Pulse Rate [ From Monitor] Respiratory 13 14 15 Rate Blood Pressure 113/73 122/70 113/84 O2 Sat by Pulse 100 100 100 Oximetry 03/22/20 03/22/20 03/22/20 10:00 10:15 10:30 Temperature Pulse Rate 62 60 67 Pulse Rate [ From Monitor] Respiratory 18 16 19 Rate Blood Pressure 113/84 122/71 105/78 O2 Sat by Pulse 100 100 100 Oximetry 03/22/20 03/22/20 03/22/20 10:46 11:00 11:16 Temperature Pulse Rate 70 67 67 Pulse Rate [ From Monitor] Respiratory 11 L 14 13 Rate Blood Pressure 105/78 105/78 105/78 O2 Sat by Pulse 100 100 100 Oximetry 03/22/20 03/22/20 03/22/20 11:30 11:45 12:00 Temperature 98.3 F Pulse Rate 64 63 60 Pulse Rate [ From Monitor] Respiratory 26 H 18 12 Rate Blood Pressure 105/78 111/81 111/81 O2 Sat by Pulse 100 98 100 Oximetry Constitutional: no acute distress, other (elderly obese male with mildly increased respiratory effort at rest ) Eyes: non-icteric ENT: oropharynx moist Neck: supple, no JVD, other (large neck circumference) Effort: mildly labored Ascultation: Bilateral: clear, diminished breath sounds Percussion: Bilateral: not dull Cardiovascular: other (S1,S2, Tachycardia, hypotension on Vasopressors) Gastrointestinal: normoactive bowel sounds, soft, non-tender, non-distended (protuberant) Integumentary: rash (Generalized skin flaking/with superficial skin sloughing without erythema or warmth on chest wall), decubitus ulcer (see RN/WCN notes for details) Extremities: pulses normal, no ischemia or petechiae, edema, other (groin vas- cath) Neurologic: pupils equal and round, unable to assess Psychiatric: other (unable to assess re: AMS) CBC and BMP: 03/22/20 04:43 03/22/20 04:00 ABG, PT/INR, D-dimer: ABG ABG pH 7.378 pH Units (7.350-7.450) 03/20/20 16:35 POC ABG pCO2 37.3 mmHg (32.0-48.0) 03/18/20 12:14 ABG pCO2 38.6 mm Hg 03/20/20 16:35 POC ABG pO2 67.4 mmHg (83-108) L 03/18/20 12:14 ABG pO2 63.9 mm Hg (80.0-90.0) L 03/20/20 16:35 POC ABG HCO3 14.1 03/18/20 12:14 ABG O2 Saturation 90.9 % (95.0-99.0) L 03/20/20 16:35 PT/INR, D-dimer PT 15.3 Sec. (12.2-14.9) H 03/19/20 Unknown INR 1.18 (0.87-1.13) H 03/19/20 Unknown Abnormal lab findings: Abnormal Labs 03/16/20 03/16/20 03/16/20 14:22 14:22 14:23 WBC 32.2 H RBC 2.93 L Hgb 8.9 L Hct 28.2 L MCV 96 H MCHC RDW 18.1 H Plt Count Seg Neuts % (Manual) 82.0 H Lymphocytes % (Manual) 10.0 L Nucleated RBC % 3.0 H Seg Neutrophils # Man 26.4 H Lymphocytes # (Manual) Monocytes # (Manual) 1.9 H PT INR APTT ABG pH POC ABG pO2 ABG pO2 ABG HCO3 ABG O2 Saturation ABG Base Excess ABG Hemoglobin ABG Potassium ABG Chloride ABG Glucose Oxyhemoglobin Sodium Potassium 3.3 L Chloride 108.9 H Carbon Dioxide 12 L BUN 59 H Creatinine 5.9 H Glucose 142 H POC Glucose Calcium 7.7 L Phosphorus Magnesium Alkaline Phosphatase 224 H Total Creatine Kinase Troponin T 0.033 H Total Protein 5.4 L Albumin 1.9 L LDL Cholesterol Direct 35 L HDL Cholesterol 37 L Arterial Blood Glucose Arterial Blood Ionized Calcium Urine WBC (Auto) Urine Creatinine Urine Total Protein Crossmatch 03/16/20 03/16/20 03/16/20 14:27 19:50 21:15 WBC RBC Hgb Hct MCV MCHC RDW Plt Count Seg Neuts % (Manual) Lymphocytes % (Manual) Nucleated RBC % Seg Neutrophils # Man Lymphocytes # (Manual) Monocytes # (Manual) PT 17.2 H INR 1.37 H APTT 51.3 H ABG pH POC ABG pO2 ABG pO2 ABG HCO3 ABG O2 Saturation ABG Base Excess ABG Hemoglobin ABG Potassium ABG Chloride ABG Glucose Oxyhemoglobin Sodium Potassium Chloride Carbon Dioxide BUN Creatinine Glucose POC Glucose Calcium Phosphorus Magnesium Alkaline Phosphatase Total Creatine Kinase Troponin T 0.031 H Total Protein Albumin LDL Cholesterol Direct HDL Cholesterol Arterial Blood Glucose Arterial Blood Ionized Calcium Urine WBC (Auto) > 182.0 H Urine Creatinine Urine Total Protein Crossmatch 03/16/20 03/17/20 03/17/20 22:25 11:13 11:13 WBC 34.4 H RBC 2.60 L Hgb 7.8 L Hct 25.2 L MCV 97 H MCHC 31 L RDW 18.7 H Plt Count Seg Neuts % (Manual) 88.0 H Lymphocytes % (Manual) 1.0 L Nucleated RBC % 13.0 H Seg Neutrophils # Man 30.3 H Lymphocytes # (Manual) 0.3 L Monocytes # (Manual) PT INR APTT ABG pH POC ABG pO2 ABG pO2 ABG HCO3 ABG O2 Saturation ABG Base Excess ABG Hemoglobin ABG Potassium ABG Chloride ABG Glucose Oxyhemoglobin Sodium Potassium 3.3 L Chloride 108.5 H Carbon Dioxide 16 L BUN 57 H Creatinine 5.5 H Glucose 325 H POC Glucose Calcium 7.0 L Phosphorus Magnesium Alkaline Phosphatase Total Creatine Kinase Troponin T 0.047 H D Total Protein Albumin LDL Cholesterol Direct HDL Cholesterol Arterial Blood Glucose Arterial Blood Ionized Calcium Urine WBC (Auto) Urine Creatinine Urine Total Protein Crossmatch 03/17/20 03/17/20 03/17/20 11:13 11:40 Unknown WBC RBC Hgb Hct MCV MCHC RDW Plt Count Seg Neuts % (Manual) Lymphocytes % (Manual) Nucleated RBC % Seg Neutrophils # Man Lymphocytes # (Manual) Monocytes # (Manual) PT INR APTT ABG pH 7.229 L POC ABG pO2 ABG pO2 98.3 H ABG HCO3 14.6 L ABG O2 Saturation ABG Base Excess -12.0 L ABG Hemoglobin 8.9 L ABG Potassium ABG Chloride ABG Glucose Oxyhemoglobin Sodium Potassium Chloride Carbon Dioxide BUN Creatinine Glucose POC Glucose Calcium Phosphorus Magnesium Alkaline Phosphatase Total Creatine Kinase 373 H Troponin T Total Protein Albumin LDL Cholesterol Direct HDL Cholesterol Arterial Blood Glucose Arterial Blood Ionized Calcium Urine WBC (Auto) > 182.0 H Urine Creatinine Urine Total Protein Crossmatch 03/17/20 03/18/20 03/18/20 Unknown 04:40 04:40 WBC 32.0 H RBC 2.56 L Hgb 7.9 L Hct 24.7 L MCV 96 H MCHC RDW 18.2 H Plt Count Seg Neuts % (Manual) Lymphocytes % (Manual) Nucleated RBC % Seg Neutrophils # Man Lymphocytes # (Manual) Monocytes # (Manual) PT INR APTT ABG pH POC ABG pO2 ABG pO2 ABG HCO3 ABG O2 Saturation ABG Base Excess ABG Hemoglobin ABG Potassium ABG Chloride ABG Glucose Oxyhemoglobin Sodium Potassium 2.7 L* Chloride 111.8 H Carbon Dioxide 12 L BUN 56 H Creatinine 4.6 H Glucose 347 H POC Glucose Calcium 6.7 L Phosphorus 5.40 H Magnesium Alkaline Phosphatase Total Creatine Kinase Troponin T Total Protein Albumin LDL Cholesterol Direct HDL Cholesterol Arterial Blood Glucose Arterial Blood Ionized Calcium Urine WBC (Auto) Urine Creatinine 139.3 H Urine Total Protein 328 H Crossmatch 03/18/20 03/18/20 03/18/20 04:40 04:48 12:14 WBC RBC Hgb Hct MCV MCHC RDW Plt Count Seg Neuts % (Manual) Lymphocytes % (Manual) Nucleated RBC % Seg Neutrophils # Man Lymphocytes # (Manual) Monocytes # (Manual) PT INR APTT ABG pH 7.230 L 7.196 L POC ABG pO2 67.4 L ABG pO2 91.6 H ABG HCO3 13.7 L ABG O2 Saturation ABG Base Excess -12.8 L ABG Hemoglobin 9.2 L 9.9 L ABG Potassium 3.3 L ABG Chloride 112.0 H ABG Glucose 355 H Oxyhemoglobin 94.8 L Sodium Potassium Chloride Carbon Dioxide BUN Creatinine Glucose POC Glucose Calcium Phosphorus Magnesium 1.40 L Alkaline Phosphatase Total Creatine Kinase Troponin T Total Protein Albumin LDL Cholesterol Direct HDL Cholesterol Arterial Blood Glucose 355 H Arterial Blood Ionized Calcium 4.5 L Urine WBC (Auto) Urine Creatinine Urine Total Protein Crossmatch 03/18/20 03/18/20 03/18/20 13:17 13:32 19:15 WBC RBC Hgb Hct MCV MCHC RDW Plt Count Seg Neuts % (Manual) Lymphocytes % (Manual) Nucleated RBC % Seg Neutrophils # Man Lymphocytes # (Manual) Monocytes # (Manual) PT INR APTT ABG pH POC ABG pO2 ABG pO2 ABG HCO3 ABG O2 Saturation ABG Base Excess ABG Hemoglobin ABG Potassium ABG Chloride ABG Glucose Oxyhemoglobin Sodium Potassium 3.0 L 3.4 L Chloride 107.2 H Carbon Dioxide 14 L 13 L BUN 59 H 67 H Creatinine 4.8 H 5.1 H Glucose 341 H 371 H POC Glucose 394 H Calcium 7.0 L 7.8 L Phosphorus Magnesium Alkaline Phosphatase Total Creatine Kinase Troponin T Total Protein Albumin LDL Cholesterol Direct HDL Cholesterol Arterial Blood Glucose Arterial Blood Ionized Calcium Urine WBC (Auto) Urine Creatinine Urine Total Protein Crossmatch 03/18/20 03/18/20 03/19/20 19:21 23:00 01:32 EST WBC RBC Hgb Hct MCV MCHC RDW Plt Count Seg Neuts % (Manual) Lymphocytes % (Manual) Nucleated RBC % Seg Neutrophils # Man Lymphocytes # (Manual) Monocytes # (Manual) PT INR APTT ABG pH POC ABG pO2 ABG pO2 ABG HCO3 ABG O2 Saturation ABG Base Excess ABG Hemoglobin ABG Potassium ABG Chloride ABG Glucose Oxyhemoglobin Sodium Potassium Chloride Carbon Dioxide BUN Creatinine Glucose POC Glucose 453 H 360 H 338 H Calcium Phosphorus Magnesium Alkaline Phosphatase Total Creatine Kinase Troponin T Total Protein Albumin LDL Cholesterol Direct HDL Cholesterol Arterial Blood Glucose Arterial Blood Ionized Calcium Urine WBC (Auto) Urine Creatinine Urine Total Protein Crossmatch 03/19/20 03/19/20 03/19/20 04:10 05:10 05:10 WBC 25.8 H RBC 3.61 L Hgb 10.9 L D Hct MCV 100 H MCHC 30 L RDW 19.1 H Plt Count Seg Neuts % (Manual) Lymphocytes % (Manual) Nucleated RBC % Seg Neutrophils # Man Lymphocytes # (Manual) Monocytes # (Manual) PT INR APTT ABG pH 7.309 L POC ABG pO2 ABG pO2 69.4 L ABG HCO3 17.9 L ABG O2 Saturation 92.4 L ABG Base Excess -7.6 L ABG Hemoglobin 8.1 L ABG Potassium ABG Chloride ABG Glucose Oxyhemoglobin 90.8 L Sodium Potassium Chloride Carbon Dioxide BUN Creatinine Glucose POC Glucose Calcium Phosphorus 5.60 H Magnesium Alkaline Phosphatase Total Creatine Kinase Troponin T Total Protein Albumin LDL Cholesterol Direct HDL Cholesterol Arterial Blood Glucose Arterial Blood Ionized Calcium Urine WBC (Auto) Urine Creatinine Urine Total Protein Crossmatch 03/19/20 03/19/20 03/19/20 10:00 11:22 Unknown WBC RBC Hgb Hct MCV MCHC RDW Plt Count Seg Neuts % (Manual) Lymphocytes % (Manual) Nucleated RBC % Seg Neutrophils # Man Lymphocytes # (Manual) Monocytes # (Manual) PT 15.3 H INR 1.18 H APTT ABG pH POC ABG pO2 ABG pO2 ABG HCO3 ABG O2 Saturation ABG Base Excess ABG Hemoglobin ABG Potassium ABG Chloride ABG Glucose Oxyhemoglobin Sodium Potassium 3.0 L Chloride Carbon Dioxide BUN 69 H Creatinine 5.4 H Glucose 250 H POC Glucose 274 H Calcium 7.9 L Phosphorus Magnesium Alkaline Phosphatase Total Creatine Kinase Troponin T Total Protein Albumin LDL Cholesterol Direct HDL Cholesterol Arterial Blood Glucose Arterial Blood Ionized Calcium Urine WBC (Auto) Urine Creatinine Urine Total Protein Crossmatch 03/20/20 03/20/20 03/20/20 01:56 05:22 06:35 WBC 27.5 H RBC 2.57 L Hgb 7.9 L D Hct 23.3 L D MCV MCHC RDW 17.7 H Plt Count Seg Neuts % (Manual) Lymphocytes % (Manual) Nucleated RBC % Seg Neutrophils # Man Lymphocytes # (Manual) Monocytes # (Manual) PT INR APTT ABG pH POC ABG pO2 ABG pO2 ABG HCO3 ABG O2 Saturation ABG Base Excess ABG Hemoglobin ABG Potassium ABG Chloride ABG Glucose Oxyhemoglobin Sodium Potassium Chloride Carbon Dioxide BUN Creatinine Glucose POC Glucose 145 H 181 H Calcium Phosphorus Magnesium Alkaline Phosphatase Total Creatine Kinase Troponin T Total Protein Albumin LDL Cholesterol Direct HDL Cholesterol Arterial Blood Glucose Arterial Blood Ionized Calcium Urine WBC (Auto) Urine Creatinine Urine Total Protein Crossmatch 03/20/20 03/20/20 03/20/20 06:35 12:10 13:30 WBC RBC Hgb Hct MCV MCHC RDW Plt Count Seg Neuts % (Manual) Lymphocytes % (Manual) Nucleated RBC % Seg Neutrophils # Man Lymphocytes # (Manual) Monocytes # (Manual) PT INR APTT ABG pH POC ABG pO2 ABG pO2 ABG HCO3 ABG O2 Saturation ABG Base Excess ABG Hemoglobin ABG Potassium ABG Chloride ABG Glucose Oxyhemoglobin Sodium Potassium 2.9 L* Chloride Carbon Dioxide BUN 69 H Creatinine 5.1 H Glucose 146 H POC Glucose 164 H Calcium 8.2 L Phosphorus 5.40 H Magnesium Alkaline Phosphatase Total Creatine Kinase Troponin T Total Protein Albumin LDL Cholesterol Direct HDL Cholesterol Arterial Blood Glucose Arterial Blood Ionized Calcium Urine WBC (Auto) 153.0 H Urine Creatinine Urine Total Protein Crossmatch 03/20/20 03/20/20 03/20/20 16:00 16:35 17:23 WBC RBC Hgb Hct MCV MCHC RDW Plt Count Seg Neuts % (Manual) Lymphocytes % (Manual) Nucleated RBC % Seg Neutrophils # Man Lymphocytes # (Manual) Monocytes # (Manual) PT INR APTT ABG pH POC ABG pO2 ABG pO2 63.9 L ABG HCO3 ABG O2 Saturation 90.9 L ABG Base Excess -2.6 L ABG Hemoglobin 9.5 L ABG Potassium ABG Chloride ABG Glucose Oxyhemoglobin 89.3 L Sodium 146 H Potassium 3.3 L Chloride Carbon Dioxide BUN 72 H Creatinine 5.1 H Glucose 150 H POC Glucose 191 H Calcium 8.2 L Phosphorus Magnesium Alkaline Phosphatase Total Creatine Kinase Troponin T Total Protein Albumin LDL Cholesterol Direct HDL Cholesterol Arterial Blood Glucose Arterial Blood Ionized Calcium Urine WBC (Auto) Urine Creatinine Urine Total Protein Crossmatch 03/21/20 03/21/20 03/21/20 00:48 03:55 03:55 WBC 22.4 H RBC 2.06 L Hgb 6.3 L Hct 19.2 L* MCV MCHC RDW 17.7 H Plt Count 86 L Seg Neuts % (Manual) Lymphocytes % (Manual) Nucleated RBC % Seg Neutrophils # Man Lymphocytes # (Manual) Monocytes # (Manual) PT INR APTT ABG pH POC ABG pO2 ABG pO2 ABG HCO3 ABG O2 Saturation ABG Base Excess ABG Hemoglobin ABG Potassium ABG Chloride ABG Glucose Oxyhemoglobin Sodium 148 H Potassium 2.8 L* Chloride 108.2 H Carbon Dioxide BUN 52 H Creatinine 3.8 H Glucose 130 H POC Glucose 158 H Calcium 7.6 L Phosphorus Magnesium Alkaline Phosphatase Total Creatine Kinase Troponin T Total Protein Albumin LDL Cholesterol Direct HDL Cholesterol Arterial Blood Glucose Arterial Blood Ionized Calcium Urine WBC (Auto) Urine Creatinine Urine Total Protein Crossmatch 03/21/20 03/21/20 03/21/20 05:37 06:43 09:15 WBC RBC Hgb Hct MCV MCHC RDW Plt Count Seg Neuts % (Manual) Lymphocytes % (Manual) Nucleated RBC % Seg Neutrophils # Man Lymphocytes # (Manual) Monocytes # (Manual) PT INR APTT ABG pH POC ABG pO2 ABG pO2 ABG HCO3 ABG O2 Saturation ABG Base Excess ABG Hemoglobin ABG Potassium ABG Chloride ABG Glucose Oxyhemoglobin Sodium Potassium 3.5 L D Chloride Carbon Dioxide BUN 56 H Creatinine 4.3 H Glucose 104 H POC Glucose 159 H Calcium Phosphorus Magnesium Alkaline Phosphatase Total Creatine Kinase Troponin T Total Protein Albumin LDL Cholesterol Direct HDL Cholesterol Arterial Blood Glucose Arterial Blood Ionized Calcium Urine WBC (Auto) Urine Creatinine Urine Total Protein Crossmatch See Detail 03/21/20 03/21/20 03/22/20 12:55 17:26 00:16 WBC RBC Hgb Hct MCV MCHC RDW Plt Count Seg Neuts % (Manual) Lymphocytes % (Manual) Nucleated RBC % Seg Neutrophils # Man Lymphocytes # (Manual) Monocytes # (Manual) PT INR APTT ABG pH POC ABG pO2 ABG pO2 ABG HCO3 ABG O2 Saturation ABG Base Excess ABG Hemoglobin ABG Potassium ABG Chloride ABG Glucose Oxyhemoglobin Sodium Potassium Chloride Carbon Dioxide BUN Creatinine Glucose POC Glucose 157 H 128 H 148 H Calcium Phosphorus Magnesium Alkaline Phosphatase Total Creatine Kinase Troponin T Total Protein Albumin LDL Cholesterol Direct HDL Cholesterol Arterial Blood Glucose Arterial Blood Ionized Calcium Urine WBC (Auto) Urine Creatinine Urine Total Protein Crossmatch 03/22/20 03/22/20 03/22/20 04:00 04:43 05:00 WBC 26.2 H RBC 3.16 L Hgb 9.6 L D Hct 29.1 L D MCV MCHC RDW 18.2 H Plt Count 86 L Seg Neuts % (Manual) Lymphocytes % (Manual) Nucleated RBC % Seg Neutrophils # Man Lymphocytes # (Manual) Monocytes # (Manual) PT INR APTT ABG pH POC ABG pO2 ABG pO2 ABG HCO3 ABG O2 Saturation ABG Base Excess ABG Hemoglobin ABG Potassium ABG Chloride ABG Glucose Oxyhemoglobin Sodium Potassium 3.5 L Chloride Carbon Dioxide BUN 47 H Creatinine 3.3 H Glucose 171 H POC Glucose Calcium 8.3 L Phosphorus Magnesium 1.60 L Alkaline Phosphatase Total Creatine Kinase Troponin T Total Protein Albumin LDL Cholesterol Direct HDL Cholesterol Arterial Blood Glucose Arterial Blood Ionized Calcium Urine WBC (Auto) Urine Creatinine Urine Total Protein Crossmatch 03/22/20 03/22/20 05:41 12:18 WBC RBC Hgb Hct MCV MCHC RDW Plt Count Seg Neuts % (Manual) Lymphocytes % (Manual) Nucleated RBC % Seg Neutrophils # Man Lymphocytes # (Manual) Monocytes # (Manual) PT INR APTT ABG pH POC ABG pO2 ABG pO2 ABG HCO3 ABG O2 Saturation ABG Base Excess ABG Hemoglobin ABG Potassium ABG Chloride ABG Glucose Oxyhemoglobin Sodium Potassium Chloride Carbon Dioxide BUN Creatinine Glucose POC Glucose 183 H 129 H Calcium Phosphorus Magnesium Alkaline Phosphatase Total Creatine Kinase Troponin T Total Protein Albumin LDL Cholesterol Direct HDL Cholesterol Arterial Blood Glucose Arterial Blood Ionized Calcium Urine WBC (Auto) Urine Creatinine Urine Total Protein Crossmatch Chest x-ray: pending Allied health notes reviewed: nursing
--- NOTE | 2020-03-22 15:56 | Progress Note ---
Assessment and Plan Assessment: Acute renal failure likely due to ischemic ATN Metabolic encphalopathy Metabolic acidosis Sepsis due to UTI UTI Hypokalemia Hypomagnesemia Hypoalbuminemia Anemia Plan: Renal labs reviewed. Serum creatinine 3.3 today, yesterday's was 4.3 S/P IJ Vascath by Vascular Surgery and first HD 03/20 and received HD again yesterday No acute indication for HD today Epogen with HD for anemia Has weldon and rectal bag Renally dose medications Strict I&O monitoring Obtain daily weights Monitor renal function closely Subjective Date of service: 03/22/20 Principal diagnosis: Acute hypoxemic respiratory failure; Septic shock; Ac. encephalopathy; ALEJANDRO Interval history: Patient resting in bed. Objective - Vital Signs Vital signs: Vital Signs - 12hr 03/22/20 03/22/20 03/22/20 04:00 04:10 04:16 Temperature Pulse Rate 64 88 59 L Pulse Rate [ From Monitor] Respiratory 17 21 16 Rate Blood Pressure 132/72 132/72 O2 Sat by Pulse 100 100 99 Oximetry 03/22/20 03/22/20 03/22/20 04:30 04:45 05:00 Temperature Pulse Rate 58 L 57 L 59 L Pulse Rate [ From Monitor] Respiratory 20 20 20 Rate Blood Pressure 132/72 127/67 129/71 O2 Sat by Pulse 85 100 100 Oximetry 03/22/20 03/22/20 03/22/20 05:15 05:30 05:31 Temperature Pulse Rate 59 L 58 L 69 Pulse Rate [ 75 From Monitor] Respiratory 20 20 22 Rate Blood Pressure 144/75 144/75 O2 Sat by Pulse 91 100 100 Oximetry 03/22/20 03/22/20 03/22/20 05:46 06:00 06:16 Temperature Pulse Rate 58 L 61 55 L Pulse Rate [ From Monitor] Respiratory 20 20 20 Rate Blood Pressure 125/75 125/75 122/71 O2 Sat by Pulse 99 100 100 Oximetry 03/22/20 03/22/20 03/22/20 06:30 06:45 07:00 Temperature Pulse Rate 57 L 63 57 L Pulse Rate [ From Monitor] Respiratory 20 20 20 Rate Blood Pressure 122/71 129/76 129/76 O2 Sat by Pulse 99 97 100 Oximetry 03/22/20 03/22/20 03/22/20 07:15 07:30 07:46 Temperature Pulse Rate 57 L 72 62 Pulse Rate [ From Monitor] Respiratory 20 15 14 Rate Blood Pressure 134/72 134/72 123/63 O2 Sat by Pulse 100 100 100 Oximetry 03/22/20 03/22/20 03/22/20 08:00 08:15 08:30 Temperature 98.0 F Pulse Rate 61 68 69 Pulse Rate [ 61 From Monitor] Respiratory 16 15 15 Rate Blood Pressure 123/63 130/69 122/78 O2 Sat by Pulse 100 100 100 Oximetry 03/22/20 03/22/20 03/22/20 08:45 09:00 09:05 Temperature Pulse Rate 60 61 Pulse Rate [ From Monitor] Respiratory 15 13 Rate Blood Pressure 129/67 129/67 O2 Sat by Pulse 100 95 95 Oximetry 03/22/20 03/22/20 03/22/20 09:15 09:30 09:45 Temperature Pulse Rate 63 64 70 Pulse Rate [ From Monitor] Respiratory 13 14 15 Rate Blood Pressure 113/73 122/70 113/84 O2 Sat by Pulse 100 100 100 Oximetry 03/22/20 03/22/20 03/22/20 10:00 10:15 10:30 Temperature Pulse Rate 62 60 67 Pulse Rate [ From Monitor] Respiratory 18 16 19 Rate Blood Pressure 113/84 122/71 105/78 O2 Sat by Pulse 100 100 100 Oximetry 03/22/20 03/22/20 03/22/20 10:46 11:00 11:16 Temperature Pulse Rate 70 67 67 Pulse Rate [ From Monitor] Respiratory 11 L 14 13 Rate Blood Pressure 105/78 105/78 105/78 O2 Sat by Pulse 100 100 100 Oximetry 03/22/20 03/22/20 03/22/20 11:30 11:45 12:00 Temperature 98.3 F Pulse Rate 64 63 60 Pulse Rate [ 60 From Monitor] Respiratory 26 H 18 12 Rate Blood Pressure 105/78 111/81 111/81 O2 Sat by Pulse 100 98 100 Oximetry 03/22/20 03/22/20 03/22/20 12:15 12:30 12:45 Temperature Pulse Rate 63 64 68 Pulse Rate [ From Monitor] Respiratory 14 19 15 Rate Blood Pressure 127/78 129/79 136/84 O2 Sat by Pulse 100 100 100 Oximetry 03/22/20 03/22/20 03/22/20 13:00 13:15 13:30 Temperature Pulse Rate 72 63 66 Pulse Rate [ From Monitor] Respiratory 16 12 14 Rate Blood Pressure 136/84 118/71 139/82 O2 Sat by Pulse 100 100 98 Oximetry 03/22/20 03/22/20 03/22/20 13:45 14:00 14:15 Temperature Pulse Rate 65 73 72 Pulse Rate [ From Monitor] Respiratory 17 15 13 Rate Blood Pressure 127/74 134/71 131/77 O2 Sat by Pulse 100 100 100 Oximetry 03/22/20 03/22/20 03/22/20 14:30 14:45 15:00 Temperature Pulse Rate 72 64 66 Pulse Rate [ From Monitor] Respiratory 14 19 17 Rate Blood Pressure 131/77 128/74 115/76 O2 Sat by Pulse 100 100 100 Oximetry 03/22/20 03/22/20 15:15 15:30 Temperature Pulse Rate 64 71 Pulse Rate [ From Monitor] Respiratory 23 13 Rate Blood Pressure 125/73 124/79 O2 Sat by Pulse 100 100 Oximetry - General Appearance General appearance: chronically ill EENT: ATNC Neck: no JVD Respiratory: Present: Decreased Breath Sounds Cardiology: S1S2 Gastrointestinal: normoactive bowel sounds Integumentary: other (genralized skin desquamation and skin peeling/flaking ) Neurologic: other (Resting) Musculoskeletal: joint swelling, other (has 1+ edemato BLE with hyperpigmentation) - Lab 03/22/20 04:43 03/22/20 04:00 Most recent lab results ABG pH 7.378 pH Units (7.350-7.450) 03/20/20 16:35 ABG pCO2 38.6 mm Hg 03/20/20 16:35 ABG pO2 63.9 mm Hg (80.0-90.0) L 03/20/20 16:35 ABG HCO3 22.2 mmol/L (20.0-26.0) 03/20/20 16:35 ABG O2 Saturation 90.9 % (95.0-99.0) L 03/20/20 16:35 Calcium 8.3 mg/dL (8.4-10.2) L 03/22/20 04:00 Phosphorus 3.80 mg/dL (2.5-4.5) 03/22/20 05:00 Magnesium 1.60 mg/dL (1.7-2.3) L 03/22/20 05:00 Urine Creatinine 139.3 mg/dL (0.1-20.0) H 03/17/20 Unknown Urine Sodium 53 mmol/L 03/17/20 Unknown Urine Total Protein 328 mg/dL (5-11.8) H 03/17/20 Unknown Medications & Allergies - Medications Allergies/Adverse Reactions: Allergies diclofenac [Diclofenac] Allergy (Verified 10/05/18 08:11) Rash Home Medications: Home Medications Medication Instructions Recorded Confirmed Last Taken Type Acetaminophen [Acetaminophen TAB] 650 mg PO Q4H PRN #1 tablet 02/28/17 03/19/20 Unknown Rx Aspirin [Aspirin BABY CHEW TAB] 81 mg PO DAILY #1 tab.chew 02/28/17 03/19/20 Unknown Rx Ferrous Sulfate [Feosol 325 MG tab] 325 mg PO QDAY #1 tablet 02/28/17 03/19/20 Unknown Rx Gabapentin 300 mg PO Q8HR #1 capsule 02/28/17 03/19/20 Unknown Rx Ondansetron [Zofran INJ] 4 mg IV Q8H PRN #1 vial 02/28/17 03/19/20 Unknown Rx amLODIPine 10 mg PO DAILY #1 tablet 02/28/17 03/19/20 Unknown Rx Ertapenem [INVanz] 1 gm IV QDAY vial 03/10/20 03/19/20 Unknown Rx Active Medications: Generic Name Dose Route Start Last Admin Trade Name Freq PRN Reason Stop Dose Admin Acetaminophen 650 mg 03/19/20 18:21 03/19/20 18:39 Tylenol FEEDTUBE 650 mg Q6H PRN Administration Pain, Mild (1-3) Albuterol 2.5 mg 03/16/20 17:00 Proventil IH Q3HRT PRN Shortness Of Breath Lipase/Protease/Amylase 1 each 03/17/20 17:12 Pancreazanitha Granger 10,500 Unit FEEDTUBE PRN PRN For Clogged Feeding Tube Epoetin Colin 10,000 unit 03/21/20 09:00 Procrit IV DAYLIN IDRIS Famotidine 20 mg 03/18/20 10:00 03/22/20 10:32 Pepcid IV 20 mg DAILY IDRIS Administration Hydromorphone HCl 0.25 mg 03/16/20 17:30 Dilaudid IV Q4H PRN Pain, Moderate (4-6) Hydrophilic Ointment 1 applic 03/21/20 07:50 03/21/20 16:38 Aquaphor TP 1 applic Q12HR PRN Administration DRY SKIN Vasopressin 20 unit/ Sodium 101 mls @ 9.09 mls/hr 03/16/20 20:00 03/20/20 04:41 Chloride IV 0.03 units/min TITR IDRIS 9.09 mls/hr Administration Protocol 0.03 UNITS/MIN Norepinephrine 8 mg/ Sodium 250 mls @ 3.75 mls/hr 03/16/20 23:00 03/20/20 11:20 Chloride IV 8 mcg/min TITR IDRIS 15 mls/hr Administration Protocol 2 MCG/MIN Epinephrine 8 mg/ Sodium 250 mls @ 3.75 mls/hr 03/17/20 04:00 03/19/20 09:06 Chloride IV 0 mcg/min TITR IDRIS 0 mls/hr Titration Protocol 2 MCG/MIN Sodium Chloride 100 mls @ 999 mls/hr 03/20/20 15:38 Nacl 0.9% IV DAYLIN PRN Hypotension Metronidazole 500 mg in 100 mls @ 100 mls/hr 03/21/20 14:00 03/22/20 14:26 Flagyl 500 Mg/100 Ml IV 04/04/20 06:59 100 mls/hr Q8HR [facility] Administration Protocol Argatroban 250 mg/ Sodium 250 mls @ 14.04 mls/hr 03/22/20 16:00 Chloride IV TITR IDRIS Protocol 2 MCG/KG/MIN Insulin Glargine 20 units 03/18/20 22:00 03/21/20 22:40 Lantus SUB-Q 20 units QHS [facility] Administration Insulin Human Lispro 0 unit 03/18/20 12:00 03/22/20 12:08 Humalog SUB-Q Not Given Q6HR [facility] Protocol Methylprednisolone Sodium Succinate 40 mg 03/16/20 22:00 03/22/20 14:26 Solu-Medrol IV 40 mg Q8HR IDRIS Administration Midodrine 10 mg 03/20/20 12:00 03/22/20 12:01 Proamatine PO Not Given TID@0800,1200,1600 IDRIS Simple Syrup 15 ml 03/17/20 17:12 Simple Syrup FEEDTUBE PRN PRN Hypoglycemia Simple Syrup 30 ml 03/17/20 17:12 Simple Syrup FEEDTUBE PRN PRN Hypoglycemia Sodium Bicarbonate 325 mg 03/17/20 17:12 Sodium Bicarbonate FEEDTUBE PRN PRN For Clogged Feeding Tube Sodium Bicarbonate 1,300 mg 03/18/20 14:00 03/22/20 14:26 Sodium Bicarbonate PO 1,300 mg QID IDRIS Administration Sodium Chloride 10 ml 03/16/20 22:00 03/22/20 10:32 Sodium Chloride Flush Syringe 10 Ml IV 10 ml BID IDRIS Administration Sodium Chloride 10 ml 03/16/20 17:00 Sodium Chloride Flush Syringe 10 Ml IV PRN PRN LINE FLUSH Vancomycin HCl 250 mg 03/20/20 12:00 03/22/20 12:08 Vancomycin Po PO 04/03/20 06:01 250 mg Q6HR IDRIS Administration
[2020-03-22 16:57] LABS: INR 1.09 (0.87-1.13)
[2020-03-22 16:58] LABS: Partial Thromboplastin Time 34.1 Sec. (24.2-36.6)
[2020-03-22] MEDS: ARGATROBAN 250 MG in SODIUM CHLORIDE 0.9% 250ML 247.5 ML IV SCH (17:43)
[2020-03-22] MEDS: INSULIN GLARGINE 100 UNITS/ML SUB-Q SCH (22:30)
[2020-03-23] MEDS: INSULIN LISPRO 100 UNIT/ML VIAL 3 mL SUB-Q SCH ×4 (01:09→17:51)
[2020-03-23] MEDS: metroNIDAZOLE/NS 500 MG/100 ML 500 MG/100 ML BAG IV SCH ×3 (05:46→22:31)
[2020-03-23] MEDS: methylPREDNISolone Sod Succinate 40 MG/1 ML INJ IV SCH ×3 (05:47→22:31)
[2020-03-23] MEDS: VANCOMYCIN 250 MG/10 ML ORAL LIQD PO SCH ×3 (05:53→17:57)
--- NOTE | 2020-03-23 08:58 | Progress Note ---
Assessment and Plan Acute renal failure likely due to ischemic ATN Metabolic encphalopathy Metabolic acidosis Sepsis due to UTI UTI Hypokalemia Hypomagnesemia Hypoalbuminemia Anemia Plan: labs are pending S/P IJ Vascath by Vascular Surgery and first HD 03/20 and received HD again yesterday No acute indication for HD today Epogen with HD for anemia Has weldon and rectal bag Renally dose medications Strict I&O monitoring Obtain daily weights Monitor renal function closely Subjective Date of service: 03/23/20 Principal diagnosis: Acute hypoxemic respiratory failure; Septic shock; Ac. encephalopathy; ALEJANDRO Interval history: no overnight events reported Objective - Vital Signs Vital signs: Vital Signs - 12hr 03/22/20 03/22/20 03/22/20 21:01 21:03 21:15 Temperature Pulse Rate 57 L 59 L Pulse Rate [ From Monitor] Respiratory 12 11 L Rate Blood Pressure 134/80 134/80 O2 Sat by Pulse 100 100 100 Oximetry 03/22/20 03/22/20 03/22/20 21:31 21:45 22:01 Temperature Pulse Rate 62 67 63 Pulse Rate [ From Monitor] Respiratory 11 L 15 10 L Rate Blood Pressure 134/80 134/80 134/80 O2 Sat by Pulse 99 100 98 Oximetry 03/22/20 03/22/20 03/22/20 22:15 22:31 22:45 Temperature Pulse Rate 60 71 65 Pulse Rate [ From Monitor] Respiratory 12 13 13 Rate Blood Pressure 134/80 134/80 134/80 O2 Sat by Pulse 98 100 100 Oximetry 03/22/20 03/22/20 03/22/20 23:01 23:15 23:31 Temperature Pulse Rate 66 63 65 Pulse Rate [ From Monitor] Respiratory 12 12 17 Rate Blood Pressure 134/80 134/80 134/80 O2 Sat by Pulse 100 100 97 Oximetry 03/22/20 03/23/20 03/23/20 23:45 00:00 00:01 Temperature 97.3 F L Pulse Rate 59 L 71 71 Pulse Rate [ 71 From Monitor] Respiratory 11 L 15 13 Rate Blood Pressure 134/80 134/80 O2 Sat by Pulse 100 98 100 Oximetry 03/23/20 03/23/20 03/23/20 00:15 00:21 00:31 Temperature Pulse Rate 59 L 60 56 L Pulse Rate [ From Monitor] Respiratory 19 22 20 Rate Blood Pressure 134/80 134/80 O2 Sat by Pulse 100 100 100 Oximetry 03/23/20 03/23/20 03/23/20 00:45 01:01 01:15 Temperature Pulse Rate 58 L 60 65 Pulse Rate [ From Monitor] Respiratory 19 20 20 Rate Blood Pressure 134/80 134/80 134/80 O2 Sat by Pulse 100 100 100 Oximetry 03/23/20 03/23/20 03/23/20 01:31 01:45 02:01 Temperature Pulse Rate 79 64 62 Pulse Rate [ From Monitor] Respiratory 17 15 19 Rate Blood Pressure 134/80 134/80 134/80 O2 Sat by Pulse 100 100 100 Oximetry 03/23/20 03/23/20 03/23/20 02:15 02:31 02:45 Temperature Pulse Rate 63 66 62 Pulse Rate [ From Monitor] Respiratory 18 20 20 Rate Blood Pressure 134/80 134/80 134/80 O2 Sat by Pulse 100 100 100 Oximetry 03/23/20 03/23/20 03/23/20 03:01 03:15 03:31 Temperature Pulse Rate 73 63 63 Pulse Rate [ From Monitor] Respiratory 12 17 20 Rate Blood Pressure 134/80 169/86 169/86 O2 Sat by Pulse 100 100 100 Oximetry 03/23/20 03/23/20 03/23/20 03:45 04:01 04:15 Temperature Pulse Rate 65 61 57 L Pulse Rate [ From Monitor] Respiratory 19 20 20 Rate Blood Pressure 169/86 147/75 147/75 O2 Sat by Pulse 100 100 100 Oximetry 03/23/20 03/23/20 03/23/20 04:31 04:45 05:00 Temperature Pulse Rate 58 L 60 65 Pulse Rate [ From Monitor] Respiratory 11 L 9 L 19 Rate Blood Pressure 147/75 147/75 150/73 O2 Sat by Pulse 100 100 100 Oximetry 03/23/20 03/23/20 03/23/20 05:15 05:31 05:45 Temperature Pulse Rate 66 57 L 61 Pulse Rate [ From Monitor] Respiratory 17 20 14 Rate Blood Pressure 147/75 147/75 147/75 O2 Sat by Pulse 100 100 100 Oximetry 03/23/20 03/23/20 03/23/20 06:00 06:15 06:31 Temperature Pulse Rate 61 58 L 59 L Pulse Rate [ From Monitor] Respiratory 14 20 19 Rate Blood Pressure 143/82 143/82 143/82 O2 Sat by Pulse 100 100 100 Oximetry 03/23/20 06:45 Temperature Pulse Rate 58 L Pulse Rate [ From Monitor] Respiratory 10 L Rate Blood Pressure 143/82 O2 Sat by Pulse 100 Oximetry - Lab 03/22/20 04:43 03/22/20 04:00 Most recent lab results ABG pH 7.378 pH Units (7.350-7.450) 03/20/20 16:35 ABG pCO2 38.6 mm Hg 03/20/20 16:35 ABG pO2 63.9 mm Hg (80.0-90.0) L 03/20/20 16:35 ABG HCO3 22.2 mmol/L (20.0-26.0) 03/20/20 16:35 ABG O2 Saturation 90.9 % (95.0-99.0) L 03/20/20 16:35 Calcium 8.3 mg/dL (8.4-10.2) L 03/22/20 04:00 Phosphorus 3.80 mg/dL (2.5-4.5) 03/22/20 05:00 Magnesium 1.60 mg/dL (1.7-2.3) L 03/22/20 05:00 Urine Creatinine 139.3 mg/dL (0.1-20.0) H 03/17/20 Unknown Urine Sodium 53 mmol/L 03/17/20 Unknown Urine Total Protein 328 mg/dL (5-11.8) H 03/17/20 Unknown Medications & Allergies - Medications Allergies/Adverse Reactions: Allergies diclofenac [Diclofenac] Allergy (Verified 10/05/18 08:11) Rash Home Medications: Home Medications Medication Instructions Recorded Confirmed Last Taken Type Acetaminophen [Acetaminophen TAB] 650 mg PO Q4H PRN #1 tablet 02/28/17 03/19/20 Unknown Rx Aspirin [Aspirin BABY CHEW TAB] 81 mg PO DAILY #1 tab.chew 02/28/17 03/19/20 Unknown Rx Ferrous Sulfate [Feosol 325 MG tab] 325 mg PO QDAY #1 tablet 02/28/17 03/19/20 Unknown Rx Gabapentin 300 mg PO Q8HR #1 capsule 02/28/17 03/19/20 Unknown Rx Ondansetron [Zofran INJ] 4 mg IV Q8H PRN #1 vial 02/28/17 03/19/20 Unknown Rx amLODIPine 10 mg PO DAILY #1 tablet 02/28/17 03/19/20 Unknown Rx Ertapenem [INVanz] 1 gm IV QDAY vial 03/10/20 03/19/20 Unknown Rx Active Medications: Generic Name Dose Route Start Last Admin Trade Name Freq PRN Reason Stop Dose Admin Acetaminophen 650 mg 03/19/20 18:21 03/19/20 18:39 Tylenol FEEDTUBE 650 mg Q6H PRN Administration Pain, Mild (1-3) Albuterol 2.5 mg 03/16/20 17:00 Proventil IH Q3HRT PRN Shortness Of Breath Lipase/Protease/Amylase 1 each 03/17/20 17:[address] 10,500 Unit FEEDTUBE PRN PRN For Clogged Feeding Tube Epoetin Colin 10,000 unit 03/21/20 09:00 Procrit IV DAYLIN IDRIS Famotidine 20 mg 03/18/20 10:00 03/22/20 10:32 Pepcid IV 20 mg DAILY IDRIS Administration Hydromorphone HCl 0.25 mg 03/16/20 17:30 Dilaudid IV Q4H PRN Pain, Moderate (4-6) Hydrophilic Ointment 1 applic 03/21/20 07:50 03/21/20 16:38 Aquaphor TP 1 applic Q12HR PRN Administration DRY SKIN Sodium Chloride 100 mls @ 999 mls/hr 03/20/20 15:38 Nacl 0.9% IV DAYLIN PRN Hypotension Metronidazole 500 mg in 100 mls @ 100 mls/hr 03/21/20 14:00 03/23/20 05:46 Flagyl 500 Mg/100 Ml IV 04/04/20 06:59 100 mls/hr Q8HR IDRIS Administration Protocol Argatroban 250 mg/ Sodium 250 mls @ 14.04 mls/hr 03/22/20 16:00 03/22/20 20:29 Chloride IV 2 mcg/kg/min TITR IDRIS 14.04 mls/hr Titration Protocol 2 MCG/KG/MIN Insulin Glargine 20 units 03/18/20 22:00 03/22/20 22:30 Lantus SUB-Q 20 units QHS IDRIS Administration Insulin Human Lispro 0 unit 03/18/20 12:00 03/23/20 05:53 Humalog SUB-Q 3 unit Q6HR IDRIS Administration Protocol Methylprednisolone Sodium Succinate 40 mg 03/16/20 22:00 03/23/20 05:47 Solu-Medrol IV 40 mg Q8HR IDRIS Administration Midodrine 10 mg 03/20/20 12:00 03/22/20 16:26 Proamatine PO 10 mg TID@0800,1200,1600 IDRIS Administration Simple Syrup 15 ml 03/17/20 17:12 Simple Syrup FEEDTUBE PRN PRN Hypoglycemia Simple Syrup 30 ml 03/17/20 17:12 Simple Syrup FEEDTUBE PRN PRN Hypoglycemia Sodium Bicarbonate 325 mg 03/17/20 17:12 Sodium Bicarbonate FEEDTUBE PRN PRN For Clogged Feeding Tube Sodium Chloride 10 ml 03/16/20 22:00 03/22/20 22:32 Sodium Chloride Flush Syringe 10 Ml IV 10 ml BID IDRIS Administration Sodium Chloride 10 ml 03/16/20 17:00 Sodium Chloride Flush Syringe 10 Ml IV PRN PRN LINE FLUSH Vancomycin HCl 250 mg 03/20/20 12:00 03/23/20 05:53 Vancomycin Po PO 04/03/20 06:01 250 mg Q6HR IDRIS Administration
--- NOTE | 2020-03-23 09:36 | Progress Note ---
Assessment and Plan Cultures: Blood cultures 03/16/2020 no growth today Assessment: 79 years old male with history of hypertension, diabetes mellitus, chronic kidney disease, previous CVA, chronic leg lymphedema, shelter res ident, known to our service due to previous ESBL E. coli bacteremia from UTI on 03/02/2020, admitted on due to 24 hours history of generalized weakness and confusion associated with subjective fever: #Severe sepsis with septic shock: off pressors, remains with leukocytosis. So urce likely severe Cdiff #Severe C diff colitis: was on ertapenem for 2 weeks #Recent ESBL E. coli bacteremia patient was discharged on ertapenem 1 g IV daily for 14 days end date supposed to be 03/20/2020 #Acute encephalopathy: Likely secondary to sepsis/uremia #Acute on chronic kidney failure #Bilateral leg lymphedema with chronic skin changes #Exfoliative rash: ? Drug allergy, seems improving Recommendations: -Continue vancomycin 250 mg PO 4 times daily total 14 days -Continue metronidazole for now -remove femoral vas cath and old central line (patient has a midline, a PICC line and a femoral vas cath) Will follow. Ivette Zamudio MD Infectious Diseases [employer] [facility] ([facility]) M [phone] O [phone] Subjective Date of service: 03/23/20 Principal diagnosis: Acute hypoxemic respiratory failure; Septic shock; Ac. encephalopathy; ALEJANDRO Interval history: Patient on BIPAP no fever Objective - Exam Narrative Exam: General appearance: Alert in no acute distress Eyes: anicteric sclerae, moist conjunctivae; no lid-lag; PERRLA lid edema HENT: Normocephalic, Atraumatic; normal external ears, nares open, oropharynx limited Neck: supple, tracheal midline, no JVD Lungs: Diminished breath sounds bilaterally CV: RRR no murmur Abdomen: Soft, non-tender Extremities: Extensive bilateral leg edema, chronic skin changes Skin: Extensive skin desquamation Psych: Alert Neuro: Alert Rectal tube with diarrhea Midline PICC line Femoral vas cath - Constitutional Vitals: Vital Signs Temp Pulse Resp BP Pulse Ox 97.9 F 58 L 10 L 143/82 99 03/23/20 08:00 03/23/20 06:45 03/23/20 06:45 03/23/20 06:45 03/23/20 09:25 Temperature -Last 24 Hours Temperature 97.9 F Temperature 97.3 F Temperature 97.6 F Temperature 98.3 F Temperature 98.3 F Temperature 98.3 F - Labs CBC & Chem 7: 03/22/20 04:43 03/22/20 04:00 Labs: Abnormal lab results 03/22/20 03/22/20 03/22/20 Range/Units 12:18 17:29 19:13 APTT 91.0 H* (24.2-36.6) Sec. POC Glucose 129 H 184 H (70-105) mg/dL 03/23/20 03/23/20 Range/Units 00:22 06:09 APTT (24.2-36.6) Sec. POC Glucose 159 H 166 H (70-105) mg/dL
[2020-03-23 09:51] LABS: Hematocrit 32.7 % (35.5-45.6); Hemoglobin 10.7 gm/dl (11.8-15.2); Mean Corpuscular HGB Conc 33 % (32-34); Mean Corpuscular Volume 91 fl (84-94); Red Cell Distribution Width 18.9 % (13.2-15.2)
[2020-03-23 09:52] LABS: Platelet Count 98 K/mm3 (140-440)
[2020-03-23] MEDS: MIDODRINE 5 MG TAB PO SCH ×3 (10:15→17:57)
[2020-03-23 10:17] LABS: Calcium 8.4 mg/dL (8.4-10.2)
[2020-03-23 10:45] LABS: Anisocytosis 1+; Band Neutrophils # (Manual) 0.8 K/mm3; Basophils % (Manual) 0 % (0.0-1.8); Eosinophils % (Manual) 0 % (0.0-4.3); Total Cells Counted 100
[2020-03-23 10:46] LABS: Burr Cells Few; Hypochromasia 1+; Platelet Estimate Consistent w Auto; Poikilocytosis Few
[2020-03-23] MEDS: FAMOTIDINE 20 MG/2 ML INJ IV SCH (11:16)
--- NOTE | 2020-03-23 15:02 | Progress Note ---
Assessment and Plan Acute hypoxemic respiratory failure Septic shock Pulmonary HTN Acute Toxic metabolic encephalopathy Acute kidney injury (ALEJANDRO) with acute tubular necrosis (ATN) PUI COVID-19 Sacral decubitus ulcer h/o VTE Hypothermia Obesity Adult FTT - doing better overall and will transfer to telemetry unit - continue BIPAP scheduled qhs with prn daytime use - continue HD/UF per nephrology for toxin and volume clearance - continue care as below otherwise; - follow c-diff assay and complete oral vancomycin dosing per ID rec's - 2D ECHO shows pulm HTN with septal flattening (ouitpatient w/up) - continue enteral nutritional support for now - MAILMASTER evaluation shortly - continue aspiration precautions (HOB >/= 40 degrees) - strict I's & O's acutely - prn vasopressors for target MAP >/= 65 mmHg - conservative fluid strategies henceforth - empiric antiinfective's per ID rec's (IV vanc stopped) - accuchecks with glycemic control per SSI (While critically ill target blood glucose of 140-180 mg/dL; avoid hypoglycemia) - wean supplemental oxygen for target O2 sat's > 90% acutely - bronchodilators with pulmonary hygiene per RT - avoid nephrotoxins, renally dose all medications - avoid benzodiazepine's, reduce the possibility of delirium - prn analgesia per pain score - Maintenance of sleep-wake cycle, avoid delirium - G.I. & VTE prophylaxis - PT/OT/ROM exercises - continue mobility protocols for pressure ulcer prophylaxis - Monitor hemodynamics closely - continue other care per attending / other consultants - discharge planning ongoing concurrently .... Re-evaluate in am & prn CONDITION: FAIR PROGNOSIS: GUARDED CODE STATUS: FULL CODE I have spent ( >35 ) minutes with the patient w/ >50% of the time spent counseling and/or coordinating care for this patient. Counseling topics and/or how time was spent coordinating patient's care is outlined in the impression and plan above. Subjective Date of service: 03/23/20 Principal diagnosis: Acute hypoxemic respiratory failure; Septic shock; Ac. encephalopathy; ALEJANDRO Interval history: Patient is seen today for: Acute hypoxemic respiratory failure; Septic shock; Acute Toxic metabolic encephalopathy; ALEJANDRO; PUI COVID-19; Sacral decubitus ulcer; h/o VTE; Hypothermia; Obesity; Adult FTT Seen and examined at bedside; 24hour events reviewed; nursing and respiratory care staff consulted; no adverse overnight events reported to me; resting peacefully in bed; clinically looks much better; denies acute chest paisn or palpitations; more coherent today; No N/V/F/C Objective Vital Signs - 12hr 03/23/20 03/23/20 03/23/20 03:15 03:31 03:45 Temperature Pulse Rate 63 63 65 Pulse Rate [ From Monitor] Respiratory 17 20 19 Rate Blood Pressure 169/86 169/86 169/86 O2 Sat by Pulse 100 100 100 Oximetry 03/23/20 03/23/20 03/23/20 04:00 04:01 04:15 Temperature Pulse Rate 60 61 57 L Pulse Rate [ 60 From Monitor] Respiratory 13 20 20 Rate Blood Pressure 147/75 147/75 O2 Sat by Pulse 100 100 100 Oximetry 03/23/20 03/23/20 03/23/20 04:31 04:45 05:00 Temperature Pulse Rate 58 L 60 65 Pulse Rate [ From Monitor] Respiratory 11 L 9 L 19 Rate Blood Pressure 147/75 147/75 150/73 O2 Sat by Pulse 100 100 100 Oximetry 03/23/20 03/23/20 03/23/20 05:15 05:31 05:45 Temperature Pulse Rate 66 57 L 61 Pulse Rate [ From Monitor] Respiratory 17 20 14 Rate Blood Pressure 147/75 147/75 147/75 O2 Sat by Pulse 100 100 100 Oximetry 03/23/20 03/23/20 03/23/20 06:00 06:15 06:31 Temperature Pulse Rate 61 58 L 59 L Pulse Rate [ From Monitor] Respiratory 14 20 19 Rate Blood Pressure 143/82 143/82 143/82 O2 Sat by Pulse 100 100 100 Oximetry 03/23/20 03/23/20 03/23/20 06:45 08:00 09:25 Temperature 97.9 F Pulse Rate 58 L Pulse Rate [ From Monitor] Respiratory 10 L Rate Blood Pressure 143/82 O2 Sat by Pulse 100 99 Oximetry 03/23/20 12:00 Temperature 98.4 F Pulse Rate Pulse Rate [ From Monitor] Respiratory Rate Blood Pressure O2 Sat by Pulse Oximetry Constitutional: no acute distress, other (elderly obese male with mildly increased respiratory effort at rest ) Eyes: non-icteric ENT: oropharynx moist Neck: supple, no JVD, other (large neck circumference) Effort: mildly labored Ascultation: Bilateral: diminished breath sounds, rhonchi (improved) Percussion: Bilateral: not dull Cardiovascular: other (S1,S2, Tachycardia, hypotension on Vasopressors) Gastrointestinal: normoactive bowel sounds, soft, non-tender, non-distended (protuberant) Integumentary: rash (Generalized skin flaking/with superficial skin sloughing without erythema or warmth on chest wall), decubitus ulcer (see RN/WCN notes for details) Extremities: pulses normal, no ischemia or petechiae, edema, other (groin vas- cath) Neurologic: non-focal exam (grossly), pupils equal and round, CN II-XII normal Psychiatric: mood appropriate, affect normal CBC and BMP: 03/23/20 09:35 03/23/20 09:35 ABG, PT/INR, D-dimer: ABG ABG pH 7.378 pH Units (7.350-7.450) 03/20/20 16:35 POC ABG pCO2 37.3 mmHg (32.0-48.0) 03/18/20 12:14 ABG pCO2 38.6 mm Hg 03/20/20 16:35 POC ABG pO2 67.4 mmHg (83-108) L 03/18/20 12:14 ABG pO2 63.9 mm Hg (80.0-90.0) L 03/20/20 16:35 POC ABG HCO3 14.1 03/18/20 12:14 ABG O2 Saturation 90.9 % (95.0-99.0) L 03/20/20 16:35 PT/INR, D-dimer PT 14.3 Sec. (12.2-14.9) 03/22/20 16:30 INR 1.09 (0.87-1.13) 03/22/20 16:30 Abnormal lab findings: Abnormal Labs 03/16/20 03/16/20 03/16/20 14:22 14:22 14:23 WBC 32.2 H RBC 2.93 L Hgb 8.9 L Hct 28.2 L MCV 96 H MCHC RDW 18.1 H Plt Count Seg Neuts % (Manual) 82.0 H Lymphocytes % (Manual) 10.0 L Nucleated RBC % 3.0 H Seg Neutrophils # Man 26.4 H Lymphocytes # (Manual) Monocytes # (Manual) 1.9 H PT INR APTT ABG pH POC ABG pO2 ABG pO2 ABG HCO3 ABG O2 Saturation ABG Base Excess ABG Hemoglobin ABG Potassium ABG Chloride ABG Glucose Oxyhemoglobin Sodium Potassium 3.3 L Chloride 108.9 H Carbon Dioxide 12 L BUN 59 H Creatinine 5.9 H Glucose 142 H POC Glucose Calcium 7.7 L Phosphorus Magnesium Alkaline Phosphatase 224 H Total Creatine Kinase Troponin T 0.033 H Total Protein 5.4 L Albumin 1.9 L LDL Cholesterol Direct 35 L HDL Cholesterol 37 L Arterial Blood Glucose Arterial Blood Ionized Calcium Urine WBC (Auto) Urine Creatinine Urine Total Protein Crossmatch 03/16/20 03/16/20 03/16/20 14:27 19:50 21:15 WBC RBC Hgb Hct MCV MCHC RDW Plt Count Seg Neuts % (Manual) Lymphocytes % (Manual) Nucleated RBC % Seg Neutrophils # Man Lymphocytes # (Manual) Monocytes # (Manual) PT 17.2 H INR 1.37 H APTT 51.3 H ABG pH POC ABG pO2 ABG pO2 ABG HCO3 ABG O2 Saturation ABG Base Excess ABG Hemoglobin ABG Potassium ABG Chloride ABG Glucose Oxyhemoglobin Sodium Potassium Chloride Carbon Dioxide BUN Creatinine Glucose POC Glucose Calcium Phosphorus Magnesium Alkaline Phosphatase Total Creatine Kinase Troponin T 0.031 H Total Protein Albumin LDL Cholesterol Direct HDL Cholesterol Arterial Blood Glucose Arterial Blood Ionized Calcium Urine WBC (Auto) > 182.0 H Urine Creatinine Urine Total Protein Crossmatch 03/16/20 03/17/20 03/17/20 22:25 11:13 11:13 WBC 34.4 H RBC 2.60 L Hgb 7.8 L Hct 25.2 L MCV 97 H MCHC 31 L RDW 18.7 H Plt Count Seg Neuts % (Manual) 88.0 H Lymphocytes % (Manual) 1.0 L Nucleated RBC % 13.0 H Seg Neutrophils # Man 30.3 H Lymphocytes # (Manual) 0.3 L Monocytes # (Manual) PT INR APTT ABG pH POC ABG pO2 ABG pO2 ABG HCO3 ABG O2 Saturation ABG Base Excess ABG Hemoglobin ABG Potassium ABG Chloride ABG Glucose Oxyhemoglobin Sodium Potassium 3.3 L Chloride 108.5 H Carbon Dioxide 16 L BUN 57 H Creatinine 5.5 H Glucose 325 H POC Glucose Calcium 7.0 L Phosphorus Magnesium Alkaline Phosphatase Total Creatine Kinase Troponin T 0.047 H D Total Protein Albumin LDL Cholesterol Direct HDL Cholesterol Arterial Blood Glucose Arterial Blood Ionized Calcium Urine WBC (Auto) Urine Creatinine Urine Total Protein Crossmatch 03/17/20 03/17/20 03/17/20 11:13 11:40 Unknown WBC RBC Hgb Hct MCV MCHC RDW Plt Count Seg Neuts % (Manual) Lymphocytes % (Manual) Nucleated RBC % Seg Neutrophils # Man Lymphocytes # (Manual) Monocytes # (Manual) PT INR APTT ABG pH 7.229 L POC ABG pO2 ABG pO2 98.3 H ABG HCO3 14.6 L ABG O2 Saturation ABG Base Excess -12.0 L ABG Hemoglobin 8.9 L ABG Potassium ABG Chloride ABG Glucose Oxyhemoglobin Sodium Potassium Chloride Carbon Dioxide BUN Creatinine Glucose POC Glucose Calcium Phosphorus Magnesium Alkaline Phosphatase Total Creatine Kinase 373 H Troponin T Total Protein Albumin LDL Cholesterol Direct HDL Cholesterol Arterial Blood Glucose Arterial Blood Ionized Calcium Urine WBC (Auto) > 182.0 H Urine Creatinine Urine Total Protein Crossmatch 03/17/20 03/18/20 03/18/20 Unknown 04:40 04:40 WBC 32.0 H RBC 2.56 L Hgb 7.9 L Hct 24.7 L MCV 96 H MCHC RDW 18.2 H Plt Count Seg Neuts % (Manual) Lymphocytes % (Manual) Nucleated RBC % Seg Neutrophils # Man Lymphocytes # (Manual) Monocytes # (Manual) PT INR APTT ABG pH POC ABG pO2 ABG pO2 ABG HCO3 ABG O2 Saturation ABG Base Excess ABG Hemoglobin ABG Potassium ABG Chloride ABG Glucose Oxyhemoglobin Sodium Potassium 2.7 L* Chloride 111.8 H Carbon Dioxide 12 L BUN 56 H Creatinine 4.6 H Glucose 347 H POC Glucose Calcium 6.7 L Phosphorus 5.40 H Magnesium Alkaline Phosphatase Total Creatine Kinase Troponin T Total Protein Albumin LDL Cholesterol Direct HDL Cholesterol Arterial Blood Glucose Arterial Blood Ionized Calcium Urine WBC (Auto) Urine Creatinine 139.3 H Urine Total Protein 328 H Crossmatch 03/18/20 03/18/20 03/18/20 04:40 04:48 12:14 WBC RBC Hgb Hct MCV MCHC RDW Plt Count Seg Neuts % (Manual) Lymphocytes % (Manual) Nucleated RBC % Seg Neutrophils # Man Lymphocytes # (Manual) Monocytes # (Manual) PT INR APTT ABG pH 7.230 L 7.196 L POC ABG pO2 67.4 L ABG pO2 91.6 H ABG HCO3 13.7 L ABG O2 Saturation ABG Base Excess -12.8 L ABG Hemoglobin 9.2 L 9.9 L ABG Potassium 3.3 L ABG Chloride 112.0 H ABG Glucose 355 H Oxyhemoglobin 94.8 L Sodium Potassium Chloride Carbon Dioxide BUN Creatinine Glucose POC Glucose Calcium Phosphorus Magnesium 1.40 L Alkaline Phosphatase Total Creatine Kinase Troponin T Total Protein Albumin LDL Cholesterol Direct HDL Cholesterol Arterial Blood Glucose 355 H Arterial Blood Ionized Calcium 4.5 L Urine WBC (Auto) Urine Creatinine Urine Total Protein Crossmatch 03/18/20 03/18/20 03/18/20 13:17 13:32 19:15 WBC RBC Hgb Hct MCV MCHC RDW Plt Count Seg Neuts % (Manual) Lymphocytes % (Manual) Nucleated RBC % Seg Neutrophils # Man Lymphocytes # (Manual) Monocytes # (Manual) PT INR APTT ABG pH POC ABG pO2 ABG pO2 ABG HCO3 ABG O2 Saturation ABG Base Excess ABG Hemoglobin ABG Potassium ABG Chloride ABG Glucose Oxyhemoglobin Sodium Potassium 3.0 L 3.4 L Chloride 107.2 H Carbon Dioxide 14 L 13 L BUN 59 H 67 H Creatinine 4.8 H 5.1 H Glucose 341 H 371 H POC Glucose 394 H Calcium 7.0 L 7.8 L Phosphorus Magnesium Alkaline Phosphatase Total Creatine Kinase Troponin T Total Protein Albumin LDL Cholesterol Direct HDL Cholesterol Arterial Blood Glucose Arterial Blood Ionized Calcium Urine WBC (Auto) Urine Creatinine Urine Total Protein Crossmatch 03/18/20 03/18/20 03/19/20 19:21 23:00 01:32 EST WBC RBC Hgb Hct MCV MCHC RDW Plt Count Seg Neuts % (Manual) Lymphocytes % (Manual) Nucleated RBC % Seg Neutrophils # Man Lymphocytes # (Manual) Monocytes # (Manual) PT INR APTT ABG pH POC ABG pO2 ABG pO2 ABG HCO3 ABG O2 Saturation ABG Base Excess ABG Hemoglobin ABG Potassium ABG Chloride ABG Glucose Oxyhemoglobin Sodium Potassium Chloride Carbon Dioxide BUN Creatinine Glucose POC Glucose 453 H 360 H 338 H Calcium Phosphorus Magnesium Alkaline Phosphatase Total Creatine Kinase Troponin T Total Protein Albumin LDL Cholesterol Direct HDL Cholesterol Arterial Blood Glucose Arterial Blood Ionized Calcium Urine WBC (Auto) Urine Creatinine Urine Total Protein Crossmatch 03/19/20 03/19/20 03/19/20 04:10 05:10 05:10 WBC 25.8 H RBC 3.61 L Hgb 10.9 L D Hct MCV 100 H MCHC 30 L RDW 19.1 H Plt Count Seg Neuts % (Manual) Lymphocytes % (Manual) Nucleated RBC % Seg Neutrophils # Man Lymphocytes # (Manual) Monocytes # (Manual) PT INR APTT ABG pH 7.309 L POC ABG pO2 ABG pO2 69.4 L ABG HCO3 17.9 L ABG O2 Saturation 92.4 L ABG Base Excess -7.6 L ABG Hemoglobin 8.1 L ABG Potassium ABG Chloride ABG Glucose Oxyhemoglobin 90.8 L Sodium Potassium Chloride Carbon Dioxide BUN Creatinine Glucose POC Glucose Calcium Phosphorus 5.60 H Magnesium Alkaline Phosphatase Total Creatine Kinase Troponin T Total Protein Albumin LDL Cholesterol Direct HDL Cholesterol Arterial Blood Glucose Arterial Blood Ionized Calcium Urine WBC (Auto) Urine Creatinine Urine Total Protein Crossmatch 03/19/20 03/19/20 03/19/20 10:00 11:22 Unknown WBC RBC Hgb Hct MCV MCHC RDW Plt Count Seg Neuts % (Manual) Lymphocytes % (Manual) Nucleated RBC % Seg Neutrophils # Man Lymphocytes # (Manual) Monocytes # (Manual) PT 15.3 H INR 1.18 H APTT ABG pH POC ABG pO2 ABG pO2 ABG HCO3 ABG O2 Saturation ABG Base Excess ABG Hemoglobin ABG Potassium ABG Chloride ABG Glucose Oxyhemoglobin Sodium Potassium 3.0 L Chloride Carbon Dioxide BUN 69 H Creatinine 5.4 H Glucose 250 H POC Glucose 274 H Calcium 7.9 L Phosphorus Magnesium Alkaline Phosphatase Total Creatine Kinase Troponin T Total Protein Albumin LDL Cholesterol Direct HDL Cholesterol Arterial Blood Glucose Arterial Blood Ionized Calcium Urine WBC (Auto) Urine Creatinine Urine Total Protein Crossmatch 03/20/20 03/20/20 03/20/20 01:56 05:22 06:35 WBC 27.5 H RBC 2.57 L Hgb 7.9 L D Hct 23.3 L D MCV MCHC RDW 17.7 H Plt Count Seg Neuts % (Manual) Lymphocytes % (Manual) Nucleated RBC % Seg Neutrophils # Man Lymphocytes # (Manual) Monocytes # (Manual) PT INR APTT ABG pH POC ABG pO2 ABG pO2 ABG HCO3 ABG O2 Saturation ABG Base Excess ABG Hemoglobin ABG Potassium ABG Chloride ABG Glucose Oxyhemoglobin Sodium Potassium Chloride Carbon Dioxide BUN Creatinine Glucose POC Glucose 145 H 181 H Calcium Phosphorus Magnesium Alkaline Phosphatase Total Creatine Kinase Troponin T Total Protein Albumin LDL Cholesterol Direct HDL Cholesterol Arterial Blood Glucose Arterial Blood Ionized Calcium Urine WBC (Auto) Urine Creatinine Urine Total Protein Crossmatch 03/20/20 03/20/20 03/20/20 06:35 12:10 13:30 WBC RBC Hgb Hct MCV MCHC RDW Plt Count Seg Neuts % (Manual) Lymphocytes % (Manual) Nucleated RBC % Seg Neutrophils # Man Lymphocytes # (Manual) Monocytes # (Manual) PT INR APTT ABG pH POC ABG pO2 ABG pO2 ABG HCO3 ABG O2 Saturation ABG Base Excess ABG Hemoglobin ABG Potassium ABG Chloride ABG Glucose Oxyhemoglobin Sodium Potassium 2.9 L* Chloride Carbon Dioxide BUN 69 H Creatinine 5.1 H Glucose 146 H POC Glucose 164 H Calcium 8.2 L Phosphorus 5.40 H Magnesium Alkaline Phosphatase Total Creatine Kinase Troponin T Total Protein Albumin LDL Cholesterol Direct HDL Cholesterol Arterial Blood Glucose Arterial Blood Ionized Calcium Urine WBC (Auto) 153.0 H Urine Creatinine Urine Total Protein Crossmatch 03/20/20 03/20/20 03/20/20 16:00 16:35 17:23 WBC RBC Hgb Hct MCV MCHC RDW Plt Count Seg Neuts % (Manual) Lymphocytes % (Manual) Nucleated RBC % Seg Neutrophils # Man Lymphocytes # (Manual) Monocytes # (Manual) PT INR APTT ABG pH POC ABG pO2 ABG pO2 63.9 L ABG HCO3 ABG O2 Saturation 90.9 L ABG Base Excess -2.6 L ABG Hemoglobin 9.5 L ABG Potassium ABG Chloride ABG Glucose Oxyhemoglobin 89.3 L Sodium 146 H Potassium 3.3 L Chloride Carbon Dioxide BUN 72 H Creatinine 5.1 H Glucose 150 H POC Glucose 191 H Calcium 8.2 L Phosphorus Magnesium Alkaline Phosphatase Total Creatine Kinase Troponin T Total Protein Albumin LDL Cholesterol Direct HDL Cholesterol Arterial Blood Glucose Arterial Blood Ionized Calcium Urine WBC (Auto) Urine Creatinine Urine Total Protein Crossmatch 03/21/20 03/21/20 03/21/20 00:48 03:55 03:55 WBC 22.4 H RBC 2.06 L Hgb 6.3 L Hct 19.2 L* MCV MCHC RDW 17.7 H Plt Count 86 L Seg Neuts % (Manual) Lymphocytes % (Manual) Nucleated RBC % Seg Neutrophils # Man Lymphocytes # (Manual) Monocytes # (Manual) PT INR APTT ABG pH POC ABG pO2 ABG pO2 ABG HCO3 ABG O2 Saturation ABG Base Excess ABG Hemoglobin ABG Potassium ABG Chloride ABG Glucose Oxyhemoglobin Sodium 148 H Potassium 2.8 L* Chloride 108.2 H Carbon Dioxide BUN 52 H Creatinine 3.8 H Glucose 130 H POC Glucose 158 H Calcium 7.6 L Phosphorus Magnesium Alkaline Phosphatase Total Creatine Kinase Troponin T Total Protein Albumin LDL Cholesterol Direct HDL Cholesterol Arterial Blood Glucose Arterial Blood Ionized Calcium Urine WBC (Auto) Urine Creatinine Urine Total Protein Crossmatch 03/21/20 03/21/20 03/21/20 05:37 06:43 09:15 WBC RBC Hgb Hct MCV MCHC RDW Plt Count Seg Neuts % (Manual) Lymphocytes % (Manual) Nucleated RBC % Seg Neutrophils # Man Lymphocytes # (Manual) Monocytes # (Manual) PT INR APTT ABG pH POC ABG pO2 ABG pO2 ABG HCO3 ABG O2 Saturation ABG Base Excess ABG Hemoglobin ABG Potassium ABG Chloride ABG Glucose Oxyhemoglobin Sodium Potassium 3.5 L D Chloride Carbon Dioxide BUN 56 H Creatinine 4.3 H Glucose 104 H POC Glucose 159 H Calcium Phosphorus Magnesium Alkaline Phosphatase Total Creatine Kinase Troponin T Total Protein Albumin LDL Cholesterol Direct HDL Cholesterol Arterial Blood Glucose Arterial Blood Ionized Calcium Urine WBC (Auto) Urine Creatinine Urine Total Protein Crossmatch See Detail 03/21/20 03/21/20 03/22/20 12:55 17:26 00:16 WBC RBC Hgb Hct MCV MCHC RDW Plt Count Seg Neuts % (Manual) Lymphocytes % (Manual) Nucleated RBC % Seg Neutrophils # Man Lymphocytes # (Manual) Monocytes # (Manual) PT INR APTT ABG pH POC ABG pO2 ABG pO2 ABG HCO3 ABG O2 Saturation ABG Base Excess ABG Hemoglobin ABG Potassium ABG Chloride ABG Glucose Oxyhemoglobin Sodium Potassium Chloride Carbon Dioxide BUN Creatinine Glucose POC Glucose 157 H 128 H 148 H Calcium Phosphorus Magnesium Alkaline Phosphatase Total Creatine Kinase Troponin T Total Protein Albumin LDL Cholesterol Direct HDL Cholesterol Arterial Blood Glucose Arterial Blood Ionized Calcium Urine WBC (Auto) Urine Creatinine Urine Total Protein Crossmatch 03/22/20 03/22/20 03/22/20 04:00 04:43 05:00 WBC 26.2 H RBC 3.16 L Hgb 9.6 L D Hct 29.1 L D MCV MCHC RDW 18.2 H Plt Count 86 L Seg Neuts % (Manual) Lymphocytes % (Manual) Nucleated RBC % Seg Neutrophils # Man Lymphocytes # (Manual) Monocytes # (Manual) PT INR APTT ABG pH POC ABG pO2 ABG pO2 ABG HCO3 ABG O2 Saturation ABG Base Excess ABG Hemoglobin ABG Potassium ABG Chloride ABG Glucose Oxyhemoglobin Sodium Potassium 3.5 L Chloride Carbon Dioxide BUN 47 H Creatinine 3.3 H Glucose 171 H POC Glucose Calcium 8.3 L Phosphorus Magnesium 1.60 L Alkaline Phosphatase Total Creatine Kinase Troponin T Total Protein Albumin LDL Cholesterol Direct HDL Cholesterol Arterial Blood Glucose Arterial Blood Ionized Calcium Urine WBC (Auto) Urine Creatinine Urine Total Protein Crossmatch 03/22/20 03/22/20 03/22/20 05:41 12:18 17:29 WBC RBC Hgb Hct MCV MCHC RDW Plt Count Seg Neuts % (Manual) Lymphocytes % (Manual) Nucleated RBC % Seg Neutrophils # Man Lymphocytes # (Manual) Monocytes # (Manual) PT INR APTT ABG pH POC ABG pO2 ABG pO2 ABG HCO3 ABG O2 Saturation ABG Base Excess ABG Hemoglobin ABG Potassium ABG Chloride ABG Glucose Oxyhemoglobin Sodium Potassium Chloride Carbon Dioxide BUN Creatinine Glucose POC Glucose 183 H 129 H 184 H Calcium Phosphorus Magnesium Alkaline Phosphatase Total Creatine Kinase Troponin T Total Protein Albumin LDL Cholesterol Direct HDL Cholesterol Arterial Blood Glucose Arterial Blood Ionized Calcium Urine WBC (Auto) Urine Creatinine Urine Total Protein Crossmatch 03/22/20 03/23/20 03/23/20 19:13 00:22 06:09 WBC RBC Hgb Hct MCV MCHC RDW Plt Count Seg Neuts % (Manual) Lymphocytes % (Manual) Nucleated RBC % Seg Neutrophils # Man Lymphocytes # (Manual) Monocytes # (Manual) PT INR APTT 91.0 H* ABG pH POC ABG pO2 ABG pO2 ABG HCO3 ABG O2 Saturation ABG Base Excess ABG Hemoglobin ABG Potassium ABG Chloride ABG Glucose Oxyhemoglobin Sodium Potassium Chloride Carbon Dioxide BUN Creatinine Glucose POC Glucose 159 H 166 H Calcium Phosphorus Magnesium Alkaline Phosphatase Total Creatine Kinase Troponin T Total Protein Albumin LDL Cholesterol Direct HDL Cholesterol Arterial Blood Glucose Arterial Blood Ionized Calcium Urine WBC (Auto) Urine Creatinine Urine Total Protein Crossmatch 03/23/20 03/23/20 03/23/20 09:35 09:35 09:35 WBC 26.9 H RBC 3.60 L Hgb 10.7 L Hct 32.7 L MCV MCHC RDW 18.9 H Plt Count 98 L Seg Neuts % (Manual) 94.0 H Lymphocytes % (Manual) 2.0 L Nucleated RBC % 1.0 H Seg Neutrophils # Man 25.3 H Lymphocytes # (Manual) 0.5 L Monocytes # (Manual) PT INR APTT ABG pH POC ABG pO2 ABG pO2 ABG HCO3 ABG O2 Saturation ABG Base Excess ABG Hemoglobin ABG Potassium ABG Chloride ABG Glucose Oxyhemoglobin Sodium Potassium 3.5 L Chloride Carbon Dioxide BUN 61 H Creatinine 3.7 H Glucose 148 H POC Glucose Calcium Phosphorus 4.90 H D Magnesium Alkaline Phosphatase Total Creatine Kinase Troponin T Total Protein Albumin LDL Cholesterol Direct HDL Cholesterol Arterial Blood Glucose Arterial Blood Ionized Calcium Urine WBC (Auto) Urine Creatinine Urine Total Protein Crossmatch 03/23/20 09:35 WBC RBC Hgb Hct MCV MCHC RDW Plt Count Seg Neuts % (Manual) Lymphocytes % (Manual) Nucleated RBC % Seg Neutrophils # Man Lymphocytes # (Manual) Monocytes # (Manual) PT INR APTT 115.2 H* ABG pH POC ABG pO2 ABG pO2 ABG HCO3 ABG O2 Saturation ABG Base Excess ABG Hemoglobin ABG Potassium ABG Chloride ABG Glucose Oxyhemoglobin Sodium Potassium Chloride Carbon Dioxide BUN Creatinine Glucose POC Glucose Calcium Phosphorus Magnesium Alkaline Phosphatase Total Creatine Kinase Troponin T Total Protein Albumin LDL Cholesterol Direct HDL Cholesterol Arterial Blood Glucose Arterial Blood Ionized Calcium Urine WBC (Auto) Urine Creatinine Urine Total Protein Crossmatch Chest x-ray: other (none today) Allied health notes reviewed: nursing
--- NOTE | 2020-03-23 17:03 | Progress Note ---
Assessment and Plan Assessment and plan: Assessment and plan: Patient is a 79-year-old male with a past medical history of encephalopathy, hypertension, generalized weakness, diabetes type 2, chronic lipidemia, DVT, respiratory failure with hypoxia, CVA, and CKD presents from residential with complaint of sepsis with hypotension, alteration mental status, and her labs collected yesterday that resulted today showing a WBC count of 36. Of note patient was recently discharged from the hospital with ertapenem 1 g IV daily ESBL E. coli bacteremia with started on March 11 with plan in date March 21 via PICC line Patient unfortunately continues to worsen despite antibiotic treatment is nonverbal not able to follow any commands and now experiencing multiorgan failure. long-term vital signs BP of 66/36, heart rate 62, respiratory rate 16, blood glucose 230, and patient presents on 3 L of nasal cannula oxygen satting 98% Patient had a negative Covid test during admission here March 02. 03/17 Patient also found to have acute kidney injury with acute tubular necrosis, toxic metabolic encephalopathy, metabolic acidosis and hypothermia. The patient is critically ill with a poor prognosis, sepsis protocol was initiated with an ICU admission. Patient was seen by flex o writer operator pressors were increased with also bicarb drip started. Unfortunately bicarb drip had to be held due to PICC line compatibility. A new PICC line has been inserted this morning. Admitting physician did speak with the son and discussed prognosis. I did also call the son this morning who informs me that the brother who is physician is coming into town and will give us further recommendation on arrival. Patient has been started on a third pressor which is epinephrine at this time. To my examination awaiting nephrology evaluation. We will proceed with giving additional 2 L of fluids and also obtain a stat echocardiogram to see what patient's cardiac level is. Based on ejection fraction patient may benefit from dobutamine. Will place BiPAP on standby and if need be and family does not opposed to continued full code we will proceed with likely intubation so the patient can be adequately volume resuscitated. -Continue empiric antibiotic coverage. ID consultation. Critical care assistance and input noted. Fluid Resuscitation As Noted above Continue Diet. Change IV access for triple-lumen PICC line. Will follow cultures. We will also obtain wound care consultation. 03/18: Continue current management, may need dialysis but not a candidate for HD due to 3 Pressors. NO Diarrhea at this time. If not improving respiratory lopez may need Intubation. 03/19: Continue supportive care, mental status showing some improvement, still on BIPAP. BP improving will stop Epi and bring down to 2 pressors. Awaiting ECHO. IF continues to have worsening Renal function, May need transfer to CRRT if unable to perform HD. Patients son updated of current clinically status. 03/20: Right femoral catheter-vas cath Placed for HD. Hypokalemia to be corrected, will give Potassium 20meq. Continue IV abx, no growth so far noted, wean pressors as tolerated, may consider adding Midodrine. WBC trending down. Prior noted Ecoli Bactermia is not noted so far on the blood culture. Continue HD as tolerated, Sodium bicarb drip due to acidosis. 03/21. He has no complaints today. Patient continues to ask when he will be discharged. Labs showed persistent hypokalemia. Continue potassium replacement. Hemoglobin 6.0. Patient will get transfused 1 unit PRBC. 03/22. Hemoglobin stable today. Assessment and plan Septic shock This has resolved C. difficile infection Continue p.o. vancomycin 250 mg every 6 hours for 14 days ID recommendations appreciated Anemia OF Chronic Disease Monitor hemoglobin Transfused as needed to hemoglobin 7 Electrolyte abnormalities-hypokalemia, hypomagnesemia Replete as needed Acute renal failure likely due to ischemic ATN Now on hemodialysis. Nephrology recommendations appreciated Metabolic Acidosis Resolved. Discontinue sodium bicarb and monitor Acute hypoxic Respiratory failure. Continue oxygen supplementation Acute toxic metabolic encephalopathy Improved Ruled out COVID-19 Hypothermia Resolved Thrombocytopenia Possibly from ongoing infection Trend platelets DC heparin for now and send HIT antibody Start argatroban Patient stable to be transferred to stepdown PT/OT ordered Speech evaluation -plan to remove NG tube DVT prophylaxis -Hold heparin for now. Argatroban for now Patient is full code History Interval history: Patient seen and examined at bedside this morning. Stable vitals Hospitalist Physical - Physical exam Narrative exam: VITAL SIGNS: Reviewed. GENERAL: On oxygen-nasal cannula HEAD: No signs of head trauma. EYES: Pupils are equal. MOUTH: Oropharynx is normal otherwise dry. NECK: No adenopathy, no JVD. CHEST: Chest with diminished breath sounds bilaterally. No wheezes, rales, or rhonchi. CARDIAC: Regular rate and rhythm. S1 and S2, without murmurs, gallops, or rubs. VASCULAR: chronic Edema. Peripheral pulses normal and equal in all extremities. ABDOMEN: Soft, non tender and non distended. No rebound or guarding, and no masses palpated. Bowel Sounds normal. MUSCULOSKELETAL: Chronic venous changes bilateral lower ext NEUROLOGIC EXAM: More responsive today compared with yesterday as per notes PSYCHIATRIC: Unable to examine SKIN: Multiple excoriations multiple pressure ulcers, detail exam as documented in skin assessment - Constitutional Vitals: Temp Pulse Resp BP Pulse Ox 97.9 F 58 L 10 L 143/82 99 03/23/20 16:00 03/23/20 06:45 03/23/20 06:45 03/23/20 06:45 03/23/20 09:25 HEART Score - HEART Score Troponin: Troponin T 0.047 ng/mL (0.00-0.029) H D 03/16/20 22:25 Results - Labs CBC & Chem 7: 03/23/20 09:35 03/23/20 09:35 Labs: Laboratory Last Values WBC 26.9 K/mm3 (4.5-11.0) H 03/23/20 09:35 RBC 3.60 M/mm3 (3.65-5.03) L 03/23/20 09:35 Hgb 10.7 gm/dl (11.8-15.2) L 03/23/20 09:35 Hct 32.7 % (35.5-45.6) L 03/23/20 09:35 MCV 91 fl (84-94) 03/23/20 09:35 MCH 30 pg (28-32) 03/23/20 09:35 MCHC 33 % (32-34) 03/23/20 09:35 RDW 18.9 % (13.2-15.2) H 03/23/20 09:35 Plt Count 98 K/mm3 (140-440) L 03/23/20 09:35 Add Manual Diff Complete 03/23/20 09:35 Total Counted 100 03/23/20 09:35 Seg Neutrophils % Armhole Baster Jumpbasting 03/23/20 09:35 Seg Neuts % (Manual) 94.0 % (40.0-70.0) H 03/23/20 09:35 Band Neutrophils % 3.0 % 03/23/20 09:35 Lymphocytes % (Manual) 2.0 % (13.4-35.0) L 03/23/20 09:35 Reactive Lymphs % (Man) 0 % 03/23/20 09:35 Monocytes % (Manual) 1.0 % (0.0-7.3) 03/23/20 09:35 Eosinophils % (Manual) 0 % (0.0-4.3) 03/23/20 09:35 Basophils % (Manual) 0 % (0.0-1.8) 03/23/20 09:35 Metamyelocytes % 0 % 03/23/20 09:35 Myelocytes % 0 % 03/23/20 09:35 Promyelocytes % 0 % 03/23/20 09:35 Blast Cells % 0 % 03/23/20 09:35 Nucleated RBC % 1.0 % (0.0-0.9) H 03/23/20 09:35 Seg Neutrophils # Man 25.3 K/mm3 (1.8-7.7) H 03/23/20 09:35 Band Neutrophils # 0.8 K/mm3 03/23/20 09:35 Lymphocytes # (Manual) 0.5 K/mm3 (1.2-5.4) L 03/23/20 09:35 Abs React Lymphs (Man) 0.0 K/mm3 03/23/20 09:35 Monocytes # (Manual) 0.3 K/mm3 (0.0-0.8) 03/23/20 09:35 Eosinophils # (Manual) 0.0 K/mm3 (0.0-0.4) 03/23/20 09:35 Basophils # (Manual) 0.0 K/mm3 (0.0-0.1) 03/23/20 09:35 Metamyelocytes # 0.0 K/mm3 03/23/20 09:35 Myelocytes # 0.0 K/mm3 03/23/20 09:35 Promyelocytes # 0.0 K/mm3 03/23/20 09:35 Blast Cells # 0.0 K/mm3 03/23/20 09:35 Pathologist Review 03/16/20 14:22 WBC Morphology Not Reportable 03/23/20 09:35 Hypersegmented Neuts Not Reportable 03/23/20 09:35 Hyposegmented Neuts Not Reportable 03/23/20 09:35 Hypogranular Neuts Not Reportable 03/23/20 09:35 Smudge Cells Not Reportable 03/23/20 09:35 Toxic Granulation Not Reportable 03/23/20 09:35 Toxic Vacuolation Not Reportable 03/23/20 09:35 Dohle Bodies Not Reportable 03/23/20 09:35 Pelger-Huet Anomaly Not Reportable 03/23/20 09:35 Santiago Rods Not Reportable 03/23/20 09:35 Platelet Estimate Consistent w auto 03/23/20 09:35 Clumped Platelets Not Reportable 03/23/20 09:35 Plt Clumps, EDTA Not Reportable 03/23/20 09:35 Large Platelets Not Reportable 03/23/20 09:35 Giant Platelets Not Reportable 03/23/20 09:35 Platelet Satelliting Not Reportable 03/23/20 09:35 Plt Morphology Comment Not Reportable 03/23/20 09:35 RBC Morphology Not Reportable 03/23/20 09:35 Dimorphic RBCs Not Reportable 03/23/20 09:35 Polychromasia Few 03/23/20 09:35 Hypochromasia 1+ 03/23/20 09:35 Poikilocytosis Few 03/23/20 09:35 Anisocytosis 1+ 03/23/20 09:35 Microcytosis Not Reportable 03/23/20 09:35 Macrocytosis Not Reportable 03/23/20 09:35 Spherocytes Not Reportable 03/23/20 09:35 Pappenheimer Bodies Not Reportable 03/23/20 09:35 Sickle Cells Not Reportable 03/23/20 09:35 Target Cells Not Reportable 03/23/20 09:35 Tear Drop Cells Not Reportable 03/23/20 09:35 Ovalocytes Not Reportable 03/23/20 09:35 Helmet Cells Not Reportable 03/23/20 09:35 Smith-Dennard Bodies Not Reportable 03/23/20 09:35 Glasgow Rings Not Reportable 03/23/20 09:35 Luis Alfredo Cells Few 03/23/20 09:35 Bite Cells Not Reportable 03/23/20 09:35 Crenated Cell Not Reportable 03/23/20 09:35 Elliptocytes Not Reportable 03/23/20 09:35 Acanthocytes (Spur) Not Reportable 03/23/20 09:35 Rouleaux Not Reportable 03/23/20 09:35 Hemoglobin C Crystals Not Reportable 03/23/20 09:35 Schistocytes Not Reportable 03/23/20 09:35 Malaria parasites Not Reportable 03/23/20 09:35 Isauro Bodies Not Reportable 03/23/20 09:35 Hem Pathologist Commnt No 03/23/20 09:35 PT 14.3 Sec. (12.2-14.9) 03/22/20 16:30 INR 1.09 (0.87-1.13) 03/22/20 16:30 APTT 115.2 Sec. (24.2-36.6) H* 03/23/20 09:35 ABG pH 7.378 pH Units (7.350-7.450) 03/20/20 16:35 POC ABG pCO2 37.3 mmHg (32.0-48.0) 03/18/20 12:14 ABG pCO2 38.6 mm Hg 03/20/20 16:35 POC ABG pO2 67.4 mmHg (83-108) L 03/18/20 12:14 ABG pO2 63.9 mm Hg (80.0-90.0) L 03/20/20 16:35 POC ABG HCO3 14.1 03/18/20 12:14 ABG HCO3 22.2 mmol/L (20.0-26.0) 03/20/20 16:35 ABG O2 Saturation 90.9 % (95.0-99.0) L 03/20/20 16:35 ABG O2 Content 12.0 (0.0-44) 03/20/20 16:35 POC ABG Base Excess -13.0 03/18/20 12:14 ABG Base Excess -2.6 mmol/L (-2.0-3.0) L 03/20/20 16:35 ABG Hemoglobin 9.5 gm/dl (14.0-18.0) L 03/20/20 16:35 ABG Carboxyhemoglobin 1.3 % (0.0-5.0) 03/20/20 16:35 ABG Methemoglobin 0.5 % (0.0-1.5) 03/20/20 16:35 ABG Sodium 138.8 mmol/L (136.0-145.0) 03/18/20 12:14 ABG Potassium 3.3 mmol/L (3.40-4.50) L 03/18/20 12:14 ABG Chloride 112.0 mmol/L (98-107) H 03/18/20 12:14 ABG Glucose 355 mg/dL (65-95) H 03/18/20 12:14 Oxyhemoglobin 89.3 % (95.0-99.0) L 03/20/20 16:35 FiO2 35 % 03/20/20 16:35 Sodium 142 mmol/L (137-145) 03/23/20 09:35 Potassium 3.5 mmol/L (3.6-5.0) L 03/23/20 09:35 Chloride 102.8 mmol/L (98-107) 03/23/20 09:35 Carbon Dioxide 29 mmol/L (22-30) 03/23/20 09:35 Anion Gap 14 mmol/L 03/23/20 09:35 BUN 61 mg/dL (9-20) H 03/23/20 09:35 Creatinine 3.7 mg/dL (0.8-1.3) H 03/23/20 09:35 Estimated GFR 19 ml/min 03/23/20 09:35 BUN/Creatinine Ratio 16 % 03/23/20 09:35 Glucose 148 mg/dL (75-100) H 03/23/20 09:35 POC Glucose 166 mg/dL (70-105) H 03/23/20 06:09 Lactic Acid 1.80 mmol/L (0.7-2.0) 03/16/20 Unknown Calcium 8.4 mg/dL (8.4-10.2) 03/23/20 09:35 Phosphorus 4.90 mg/dL (2.5-4.5) H D 03/23/20 09:35 Magnesium 1.60 mg/dL (1.7-2.3) L 03/22/20 05:00 Total Bilirubin 0.20 mg/dL (0.1-1.2) 03/16/20 14:22 AST 22 units/L (5-40) 03/16/20 14:22 ALT 8 units/L (7-56) 03/16/20 14:22 Alkaline Phosphatase 224 units/L (35-129) H 03/16/20 14:22 Total Creatine Kinase 373 units/L (55-170) H 03/17/20 11:13 Troponin T 0.047 ng/mL (0.00-0.029) H D 03/16/20 22:25 Total Protein 5.4 g/dL (6.3-8.2) L 03/16/20 14:22 Albumin 1.9 g/dL (3.9-5) L 03/16/20 14:22 Albumin/Globulin Ratio 0.5 % 03/16/20 14:22 Triglycerides 107 mg/dL (2-149) 03/16/20 14:23 Cholesterol 95 mg/dL (50-199) 03/16/20 14:23 LDL Cholesterol Direct 35 mg/dL (50-130) L 03/16/20 14:23 HDL Cholesterol 37 mg/dL (40-59) L 03/16/20 14:23 Cholesterol/HDL Ratio 2.56 % 03/16/20 14:23 Procalcitonin 9.59 ng/mL (<0.15) 03/17/20 18:53 Arterial Blood Glucose 355 mg/dL (65-95) H 03/18/20 12:14 Arterial Blood Ionized Calcium 4.5 mg/dL (4.6-5.3) L 03/18/20 12:14 Urine Color Yellow (Yellow) 03/20/20 13:30 Urine Turbidity Turbid (Clear) 03/20/20 13:30 Urine pH 5.0 (5.0-7.0) 03/20/20 13:30 Ur Specific Sultana 1.011 (1.003-1.030) 03/20/20 13:30 Urine Protein 100 mg/dl mg/dL (Negative) 03/20/20 13:30 Urine Glucose (UA) Neg mg/dL (Negative) 03/20/20 13:30 Urine Ketones Neg mg/dL (Negative) 03/20/20 13:30 Urine Blood Mod (Negative) 03/20/20 13:30 Urine Nitrite Neg (Negative) 03/20/20 13:30 Urine Bilirubin Neg (Negative) 03/20/20 13:30 Urine Urobilinogen < 2.0 mg/dL (<2.0) 03/20/20 13:30 Ur Leukocyte Esterase Mod (Negative) 03/20/20 13:30 Urine WBC (Auto) 153.0 /HPF (0.0-6.0) H 03/20/20 13:30 Urine RBC (Auto) 130.0 /HPF (0.0-6.0) 03/20/20 13:30 U Epithel Cells (Auto) 1.0 /HPF (0-13.0) 03/20/20 13:30 Urine Bacteria (Auto) 2+ /HPF (Negative) 03/20/20 13:30 Urine WBC Clumps 3+ /HPF 03/17/20 11:40 Urine Mucus Few /HPF 03/20/20 13:30 Urine Yeast (Budding) 3+ /HPF 03/20/20 13:30 Urine Creatinine 139.3 mg/dL (0.1-20.0) H 03/17/20 Unknown Protein/Creatinin Ratio 2.35 03/17/20 Unknown Urine Sodium 53 mmol/L 03/17/20 Unknown Urine Total Protein 328 mg/dL (5-11.8) H 03/17/20 Unknown Random Vancomycin 8.4 ug/mL (0-40.0) 03/18/20 04:40 C. difficile Tox (PCR) Positive (Negative) 03/19/20 23:59 Coronavirus (PCR) Negative (Negative) 03/17/20 09:03 Hepatitis A IgM Ab Non-reactive (NonReactive) 03/20/20 16:00 Hep Bs Antigen Non-reactive (Negative) 03/20/20 16:00 Hep B Core IgM Ab Non-reactive (NonReactive) 03/20/20 16:00 Hepatitis C Antibody Non-reactive (NonReactive) 03/20/20 16:00 Blood Type O POSITIVE 03/21/20 06:43 Antibody Screen Negative 03/21/20 06:43 Crossmatch See Detail 03/21/20 06:43 Microbiology: Microbiology 03/20/20 Unknown Urine,Catheterized - Indwelling Catheter Urine Culture - Final - Diagnostic Impressions Diagnostic Impressions: Echocardiogram 03/17/20 09:13 Transthoracic Echocardiogram Indication: Cardiogenic Shock BP: 126/62 Conclusions *Global left ventricular systolic function is normal. *Mild to moderate concentric left ventricular hypertrophy is observed. *The estimated ejection fraction is 55-60%. *The right ventricle is severely dilated. *The right ventricular global systolic function is moderately reduced. *Flattened in systole consistent with right ventricular pressure overload. *There is moderate aortic stenosis. *The mean gradient of the aortic valve is 20.93 mmHg. *Moderate aortic leaflet calcification is visualized. *There is mild aortic regurgitation. *There is mild mitral regurgitation. *There is mild tricuspid regurgitation. *The right ventricular systolic pressure is calculated at 46 mmHg. *There is trace pulmonic regurgitation. *A left pleural effusion is present. *There is no pericardial effusion. Findings Procedure Info: The study quality is good. Left Ventricle: The left ventricular chamber size is normal. Mild to moderate concentric left ventricular hypertrophy is observed. Global left ventricular systolic function is normal. The estimated ejection fraction is 55-60%. Abnormal left ventricular diastolic filling is observed, consistent with impaired relaxation. Left Atrium: The left atrium is normal in size with no visual thrombus identified. Right Ventricle: The right ventricle is severely dilated. The right ventricular global systolic function is moderately reduced. Flattened in systole consistent with right ventricular pressure overload. Right Atrium: The right atrium is moderately dilated. Aortic Valve: The aortic valve is trileaflet. Moderate aortic leaflet calcification is visualized. There is mild aortic regurgitation. There is moderate aortic stenosis. The mean gradient of the aortic valve is 20.93 mmHg. The peak instantaneous gradient of the aortic valve is 48.15 mmHg. The aortic valve area, by VTI's, is calculated at [id number] cm2. Mitral Valve: There is posterior mitral annular calcification. The mitral valve leaflets are mildly thickened. There is mild mitral regurgitation. There is no evidence of mitral stenosis. Tricuspid Valve: There is mild tricuspid regurgitation. The right ventricular systolic pressure is calculated at 46 mmHg. There is no tricuspid stenosis. Pulmonic Valve: The pulmonic valve appears normal. There is trace pulmonic regurgitation. There is no pulmonic stenosis. Pericardium: There is no pericardial effusion. A left pleural effusion is present. Aorta: The aorta appears normal. Pulmonary Artery: The main pulmonary artery appears normal. Venous: The inferior vena cava is dilated. There is less than 50% respiratory change in the inferior vena cava dimension. Measurements Chambers 2D Name Value Normal Range IVSd (2D) 1.24 cm (0.6 - 1.1) LVPWd (2D) 1.28 cm (0.6 - 1.1) LVIDd (2D) 4.39 cm (3.7 - 5.6) LVIDs (2D) 2.74 cm (2 - 3.8) LV FS (2D) 37.56 % - EF Teichholz (2D) 67.84 % - Ao root diameter (2D) 3.09 cm (2 - 3.7) Volumes/Mass Name Value Normal Range LA ESV SP 4CH (A/L) 61.48 ml - LA ESV SP 2CH (A/L) 74.82 ml - LA ESV BP (A/L) 70.19 ml - LA ESV BP (A/L) index 29.49 ml/m2 - LA ESV SP 4CH (MOD) 60.86 ml - LA ESV SP 2CH (MOD) 76.42 ml - LA ESV BP (MOD) 70.33 ml - LA ESV BP (MOD) index 29.55 ml/m2 - LV EDV SP 4CH (MOD) 54.09 ml - LV ESV SP 4CH (MOD) 19.25 ml - EF SP 4CH (MOD) 64.4 % - Diastolic/Systolic Function Name Value Normal Range MV E-wave Vmax 0.67 m/sec - MV deceleration time 137.49 msec - MV A-wave Vmax 0.88 m/sec - MV E:A ratio 0.77 ratio - Aortic Valve Name Value Normal Range AV Vmax 3.23 m/sec - AV VTI 54.14 cm - AV peak gradient 48.15 mmHg - AV mean gradient 20.93 mmHg - LVOT diameter 2.11 cm - LVOT Vmax 0.92 m/sec - LVOT VTI 17.92 cm - LVOT peak gradient 3.42 mmHg - LVOT mean gradient 1.46 mmHg - SV LVOT 62.51 ml - NAVIN (continuity Vmax) 1 cm2 - NAVIN (continuity VTI) 1.15 cm2 - AR PHT 720.82 msec - AR peak gradient 15.53 mmHg - Ascending Ao 3.71 cm - Tricuspid Valve Name Value Normal Range TV E-wave Vmax 0.51 m/sec - TR Vmax 2.8 m/sec - TR peak gradient 31.37 mmHg - RAP 15 mmHg - RVSP 46 mmHg - IVC diameter 2.4 cm (1.2 - 2.3) Pulmonic Valve/Qp:Qs Name Value Normal Range PV Vmax 1.09 m/sec - PV peak gradient 4.78 mmHg - RVOT Vmax 0.7 m/sec - RVOT VTI 13.89 cm - RVOT peak gradient 1.96 mmHg - PV acceleration time 95.15 msec - Cunningham/IV: Voiding Method Indwelling Catheter IV Catheter Type [right wrist] Peripheral IV IV Catheter Type [Right VAS Cath Femoral] IV Catheter Type [Right Upper PICC Line arm] IV Catheter Type [Left Upper PICC Line arm] Active Medications - Current Medications Current Medications: Generic Name Dose Route Start Last Admin Trade Name Freq PRN Reason Stop Dose Admin Acetaminophen 650 mg 03/19/20 18:21 03/19/20 18:39 Tylenol FEEDTUBE 650 mg Q6H PRN Administration Pain, Mild (1-3) Albuterol 2.5 mg 03/16/20 17:00 Proventil IH Q3HRT PRN Shortness Of Breath Lipase/Protease/Amylase 1 each 03/17/20 17:[address] 10,500 Unit FEEDTUBE PRN PRN For Clogged Feeding Tube Epoetin Colin 10,000 unit 03/21/20 09:00 Procrit IV DAYLIN IDRIS Famotidine 20 mg 03/18/20 10:00 03/23/20 11:16 Pepcid IV 20 mg DAILY IDRIS Administration Hydromorphone HCl 0.25 mg 03/16/20 17:30 Dilaudid IV Q4H PRN Pain, Moderate (4-6) Hydrophilic Ointment 1 applic 03/21/20 07:50 03/21/20 16:38 Aquaphor TP 1 applic Q12HR PRN Administration DRY SKIN Sodium Chloride 100 mls @ 999 mls/hr 03/20/20 15:38 Nacl 0.9% IV DAYLIN PRN Hypotension Metronidazole 500 mg in 100 mls @ 100 mls/hr 03/21/20 14:00 03/23/20 14:47 Flagyl 500 Mg/100 Ml IV 04/04/20 06:59 100 mls/hr Q8HR IDRIS Administration Protocol Argatroban 250 mg/ Sodium 250 mls @ 14.04 mls/hr 03/22/20 16:00 03/23/20 10:37 Chloride IV 1 mcg/kg/min TITR IDRIS 7.02 mls/hr Titration Protocol 2 MCG/KG/MIN Insulin Glargine 20 units 03/18/20 22:00 03/22/20 22:30 Lantus SUB-Q 20 units QHS IDRIS Administration Insulin Human Lispro 0 unit 03/18/20 12:00 03/23/20 13:03 Humalog SUB-Q Not Given Q6HR [facility] Protocol Methylprednisolone Sodium Succinate 40 mg 03/16/20 22:00 03/23/20 14:47 Solu-Medrol IV 40 mg Q8HR IDRIS Administration Midodrine 10 mg 03/20/20 12:00 03/23/20 14:49 Proamatine PO 10 mg TID@0800,1200,1600 IDRIS Administration Simple Syrup 15 ml 03/17/20 17:12 Simple Syrup FEEDTUBE PRN PRN Hypoglycemia Simple Syrup 30 ml 03/17/20 17:12 Simple Syrup FEEDTUBE PRN PRN Hypoglycemia Sodium Bicarbonate 325 mg 03/17/20 17:12 Sodium Bicarbonate FEEDTUBE PRN PRN For Clogged Feeding Tube Sodium Chloride 10 ml 03/16/20 22:00 03/23/20 11:17 Sodium Chloride Flush Syringe 10 Ml IV 10 ml BID IDRIS Administration Sodium Chloride 10 ml 03/16/20 17:00 Sodium Chloride Flush Syringe 10 Ml IV PRN PRN LINE FLUSH Vancomycin HCl 250 mg 03/20/20 12:00 03/23/20 11:16 Vancomycin Po PO 04/03/20 06:01 250 mg Q6HR IDRIS Administration Nutrition/Malnutrition Assess - Dietary Evaluation Nutrition/Malnutrition Findings: Nutrition Notes Start: 03/18/20 09:15 Freq: Status: Active Protocol: Document 03/22/20 12:39 QUINTIN (Rec: 03/22/20 12:48 QUINTIN [id number]) Co-Sign 03/22/20 12:39 MK Nutrition Notes Initial or Follow up Reassessment Current Diagnosis Acute Kidney Injury,CKD(stage I-IV),Diabetes,Hypertension Other Pertinent Diagnosis Septic shock, debility, hypothermia, COVID-19 (-) Current Diet Nepro at 40 ml/hr (goal rate) Labs/Tests K 3.5 BUN 47 Cr 3.3 Mg 1.6 BG 171 Pertinent Medications KCl 40 mEq Mg 2 gm Solu-medrol Humalog Lantus Vancomycin Height 5 ft 11 in Weight 117 kg [place] Body Weight (kg) 78.18 BMI 35.9 Weight change and time frame Wt change noted. Pt had HD yesterday, removed 2 liters. Total fluid from flush and TF 1718ml/day. Weight Status Obese Subjective/Other Information F/u TF, K, Pt tolerating tube feed at goal rate. Diarrhea continues, pt tested positive for C.diff. May need to increase protein depending on ALEJANDRO and WOC assessment. Will monitor. Percent of energy/protein needs met: 95%/100% Burn Absent Trauma Absent GI Symptoms Diarrhea Skin Integrity/Comment dry, flaky skin, WOC consulted Current % PO Negligible Minimum of two criteria No Fluid Accumulation Moderate to Severe (severe) #1 Nutrition Diagnosis Inadequate oral intake Diagnosis Progress(for reassessment Continues documentation) Is patient on ventilator? No Is Patient Ambulatory and/or Out of Bed No REE-([facility]-confined to bed) 2282.928 Kcal/Kg value to use for calculation 16 Approximate Energy Requirements Using 1872 kcal/Kg Calculation Used for Recommendations Kcal/kg Additional Notes Protein: 80-120g/kg (0.8-1.2g/ kg using AdjBW 100kg) Fluid: 1ml/kcal or per MD Nutrition Intervention Change Diet Order: Continue TF Nutrition Support: Nepro 1.8 at 40ml/hr Flush 170ml q4h Kcal 1,728 Protein (gm) 78 Fluid (mL) 698 Goal #1 Meet at least 80% of energy and protein needs via TF Anticipated Discharge Needs: unable to determine at this time Follow-Up By: 03/24/20 Additional Comments F/u stable TF and WOC assessment
--- NOTE | 2020-03-23 17:06 | Progress Note ---
Assessment and Plan Assessment and plan: Assessment and plan: Patient is a 79-year-old male with a past medical history of encephalopathy, hypertension, generalized weakness, diabetes type 2, chronic lipidemia, DVT, respiratory failure with hypoxia, CVA, and CKD presents from detention with complaint of sepsis with hypotension, alteration mental status, and her labs collected yesterday that resulted today showing a WBC count of 36. Of note patient was recently discharged from the hospital with ertapenem 1 g IV daily ESBL E. coli bacteremia with started on March 11 with plan in date March 21 via PICC line Patient unfortunately continues to worsen despite antibiotic treatment is nonverbal not able to follow any commands and now experiencing multiorgan failure. [facility] vital signs BP of 66/36, heart rate 62, respiratory rate 16, blood glucose 230, and patient presents on 3 L of nasal cannula oxygen satting 98% Patient had a negative Covid test during admission here March 02. 03/17 Patient also found to have acute kidney injury with acute tubular necrosis, toxic metabolic encephalopathy, metabolic acidosis and hypothermia. The patient is critically ill with a poor prognosis, sepsis protocol was initiated with an ICU admission. Patient was seen by geophysical laboratory chief pressors were increased with also bicarb drip started. Unfortunately bicarb drip had to be held due to PICC line compatibility. A new PICC line has been inserted this morning. Admitting physician did speak with the son and discussed prognosis. I did also call the son this morning who informs me that the brother who is physician is coming into town and will give us further recommendation on arrival. Patient has been started on a third pressor which is epinephrine at this time. To my examination awaiting nephrology evaluation. We will proceed with giving additional 2 L of fluids and also obtain a stat echocardiogram to see what patient's cardiac level is. Based on ejection fraction patient may benefit from dobutamine. Will place BiPAP on standby and if need be and family does not opposed to continued full code we will proceed with likely intubation so the patient can be adequately volume resuscitated. -Continue empiric antibiotic coverage. ID consultation. Critical care assistance and input noted. Fluid Resuscitation As Noted above Continue Diet. Change IV access for triple-lumen PICC line. Will follow cultures. We will also obtain wound care consultation. 03/18: Continue current management, may need dialysis but not a candidate for HD due to 3 Pressors. NO Diarrhea at this time. If not improving respiratory lopez may need Intubation. 03/19: Continue supportive care, mental status showing some improvement, still on BIPAP. BP improving will stop Epi and bring down to 2 pressors. Awaiting ECHO. IF continues to have worsening Renal function, May need transfer to [facility] if unable to perform HD. Patients son updated of current clinically status. 03/20: Right femoral catheter-vas cath Placed for HD. Hypokalemia to be corrected, will give Potassium 20meq. Continue IV abx, no growth so far noted, wean pressors as tolerated, may consider adding Midodrine. WBC trending down. Prior noted Ecoli Bactermia is not noted so far on the blood culture. Continue HD as tolerated, Sodium bicarb drip due to acidosis. 03/21. He has no complaints today. Patient continues to ask when he will be discharged. Labs showed persistent hypokalemia. Continue potassium replacement. Hemoglobin 6.0. Patient will get transfused 1 unit PRBC. 03/22. Hemoglobin stable today. Vascular surgery consulted for femoral line replacement 03/23. Patient seen in the BiPAP. Still has diarrhea and is on vancomycin. Afebrile overnight. Labs reviewed Assessment and plan Septic shock This has resolved C. difficile infection Continue p.o. vancomycin 250 mg every 6 hours for 14 days ID recommendations appreciated Anemia OF Chronic Disease Monitor hemoglobin Transfused as needed to hemoglobin 7 Electrolyte abnormalities-hypokalemia, hypomagnesemia Replete as needed Acute renal failure likely due to ischemic ATN Now on hemodialysis. Nephrology recommendations appreciated Metabolic Acidosis Resolved. Discontinue sodium bicarb and monitor Acute hypoxic Respiratory failure. Continue oxygen supplementation Acute toxic metabolic encephalopathy Improved Ruled out COVID-19 Hypothermia Resolved Thrombocytopenia Possibly from ongoing infection Trend platelets DC heparin for now and send HIT antibody Argatroban PT/OT ordered Speech evaluation -plan to remove NG tube when intake is adequate DVT prophylaxis -Hold heparin for now. Argatroban for now Patient is full code History Interval history: Patient seen and examined at bedside this morning. Patient seen in the BiPAP this morning Consulted vascular surgery yesterday for replacement of femoral line Stable vitals Hospitalist Physical - Physical exam Narrative exam: VITAL SIGNS: Reviewed. GENERAL: Awake HEAD: No signs of head trauma. EYES: Pupils are equal. MOUTH: Oropharynx is normal otherwise dry. NECK: No adenopathy, no JVD. CHEST: Chest with diminished breath sounds bilaterally. No wheezes, rales, or rhonchi. CARDIAC: Regular rate and rhythm. S1 and S2, without murmurs, gallops, or rubs. VASCULAR: chronic Edema. Peripheral pulses normal and equal in all extremities. ABDOMEN: Soft, non tender and non distended. No rebound or guarding, and no masses palpated. Bowel Sounds normal. MUSCULOSKELETAL: Chronic venous changes bilateral lower ext NEUROLOGIC EXAM: Awake and alert SKIN: Multiple excoriations multiple pressure ulcers, detail exam as documented in skin assessment - Constitutional Vitals: Temp Pulse Resp BP Pulse Ox 97.9 F 58 L 10 L 143/82 99 03/23/20 16:00 03/23/20 06:45 03/23/20 06:45 03/23/20 06:45 03/23/20 09:25 HEART Score - HEART Score Troponin: Troponin T 0.047 ng/mL (0.00-0.029) H D 03/16/20 22:25 Results - Labs CBC & Chem 7: 03/23/20 09:35 03/23/20 09:35 Labs: Laboratory Last Values WBC 26.9 K/mm3 (4.5-11.0) H 03/23/20 09:35 RBC 3.60 M/mm3 (3.65-5.03) L 03/23/20 09:35 Hgb 10.7 gm/dl (11.8-15.2) L 03/23/20 09:35 Hct 32.7 % (35.5-45.6) L 03/23/20 09:35 MCV 91 fl (84-94) 03/23/20 09:35 MCH 30 pg (28-32) 03/23/20 09:35 MCHC 33 % (32-34) 03/23/20 09:35 RDW 18.9 % (13.2-15.2) H 03/23/20 09:35 Plt Count 98 K/mm3 (140-440) L 03/23/20 09:35 Add Manual Diff Complete 03/23/20 09:35 Total Counted 100 03/23/20 09:35 Seg Neutrophils % Space Operations Officer 03/23/20 09:35 Seg Neuts % (Manual) 94.0 % (40.0-70.0) H 03/23/20 09:35 Band Neutrophils % 3.0 % 03/23/20 09:35 Lymphocytes % (Manual) 2.0 % (13.4-35.0) L 03/23/20 09:35 Reactive Lymphs % (Man) 0 % 03/23/20 09:35 Monocytes % (Manual) 1.0 % (0.0-7.3) 03/23/20 09:35 Eosinophils % (Manual) 0 % (0.0-4.3) 03/23/20 09:35 Basophils % (Manual) 0 % (0.0-1.8) 03/23/20 09:35 Metamyelocytes % 0 % 03/23/20 09:35 Myelocytes % 0 % 03/23/20 09:35 Promyelocytes % 0 % 03/23/20 09:35 Blast Cells % 0 % 03/23/20 09:35 Nucleated RBC % 1.0 % (0.0-0.9) H 03/23/20 09:35 Seg Neutrophils # Man 25.3 K/mm3 (1.8-7.7) H 03/23/20 09:35 Band Neutrophils # 0.8 K/mm3 03/23/20 09:35 Lymphocytes # (Manual) 0.5 K/mm3 (1.2-5.4) L 03/23/20 09:35 Abs React Lymphs (Man) 0.0 K/mm3 03/23/20 09:35 Monocytes # (Manual) 0.3 K/mm3 (0.0-0.8) 03/23/20 09:35 Eosinophils # (Manual) 0.0 K/mm3 (0.0-0.4) 03/23/20 09:35 Basophils # (Manual) 0.0 K/mm3 (0.0-0.1) 03/23/20 09:35 Metamyelocytes # 0.0 K/mm3 03/23/20 09:35 Myelocytes # 0.0 K/mm3 03/23/20 09:35 Promyelocytes # 0.0 K/mm3 03/23/20 09:35 Blast Cells # 0.0 K/mm3 03/23/20 09:35 Pathologist Review 03/16/20 14:22 WBC Morphology Not Reportable 03/23/20 09:35 Hypersegmented Neuts Not Reportable 03/23/20 09:35 Hyposegmented Neuts Not Reportable 03/23/20 09:35 Hypogranular Neuts Not Reportable 03/23/20 09:35 Smudge Cells Not Reportable 03/23/20 09:35 Toxic Granulation Not Reportable 03/23/20 09:35 Toxic Vacuolation Not Reportable 03/23/20 09:35 Dohle Bodies Not Reportable 03/23/20 09:35 Pelger-Huet Anomaly Not Reportable 03/23/20 09:35 Santiago Rods Not Reportable 03/23/20 09:35 Platelet Estimate Consistent w auto 03/23/20 09:35 Clumped Platelets Not Reportable 03/23/20 09:35 Plt Clumps, EDTA Not Reportable 03/23/20 09:35 Large Platelets Not Reportable 03/23/20 09:35 Giant Platelets Not Reportable 03/23/20 09:35 Platelet Satelliting Not Reportable 03/23/20 09:35 Plt Morphology Comment Not Reportable 03/23/20 09:35 RBC Morphology Not Reportable 03/23/20 09:35 Dimorphic RBCs Not Reportable 03/23/20 09:35 Polychromasia Few 03/23/20 09:35 Hypochromasia 1+ 03/23/20 09:35 Poikilocytosis Few 03/23/20 09:35 Anisocytosis 1+ 03/23/20 09:35 Microcytosis Not Reportable 03/23/20 09:35 Macrocytosis Not Reportable 03/23/20 09:35 Spherocytes Not Reportable 03/23/20 09:35 Pappenheimer Bodies Not Reportable 03/23/20 09:35 Sickle Cells Not Reportable 03/23/20 09:35 Target Cells Not Reportable 03/23/20 09:35 Tear Drop Cells Not Reportable 03/23/20 09:35 Ovalocytes Not Reportable 03/23/20 09:35 Helmet Cells Not Reportable 03/23/20 09:35 [place] Bodies Not Reportable 03/23/20 09:35 [place] Rings Not Reportable 03/23/20 09:35 [place] Cells Few 03/23/20 09:35 Bite Cells Not Reportable 03/23/20 09:35 Crenated Cell Not Reportable 03/23/20 09:35 Elliptocytes Not Reportable 03/23/20 09:35 Acanthocytes (Spur) Not Reportable 03/23/20 09:35 Rouleaux Not Reportable 03/23/20 09:35 Hemoglobin C Crystals Not Reportable 03/23/20 09:35 Schistocytes Not Reportable 03/23/20 09:35 Malaria parasites Not Reportable 03/23/20 09:35 Isauro Bodies Not Reportable 03/23/20 09:35 Hem Pathologist Commnt No 03/23/20 09:35 PT 14.3 Sec. (12.2-14.9) 03/22/20 16:30 INR 1.09 (0.87-1.13) 03/22/20 16:30 APTT 115.2 Sec. (24.2-36.6) H* 03/23/20 09:35 ABG pH 7.378 pH Units (7.350-7.450) 03/20/20 16:35 POC ABG pCO2 37.3 mmHg (32.0-48.0) 03/18/20 12:14 ABG pCO2 38.6 mm Hg 03/20/20 16:35 POC ABG pO2 67.4 mmHg (83-108) L 03/18/20 12:14 ABG pO2 63.9 mm Hg (80.0-90.0) L 03/20/20 16:35 POC ABG HCO3 14.1 03/18/20 12:14 ABG HCO3 22.2 mmol/L (20.0-26.0) 03/20/20 16:35 ABG O2 Saturation 90.9 % (95.0-99.0) L 03/20/20 16:35 ABG O2 Content 12.0 (0.0-44) 03/20/20 16:35 POC ABG Base Excess -13.0 03/18/20 12:14 ABG Base Excess -2.6 mmol/L (-2.0-3.0) L 03/20/20 16:35 ABG Hemoglobin 9.5 gm/dl (14.0-18.0) L 03/20/20 16:35 ABG Carboxyhemoglobin 1.3 % (0.0-5.0) 03/20/20 16:35 ABG Methemoglobin 0.5 % (0.0-1.5) 03/20/20 16:35 ABG Sodium 138.8 mmol/L (136.0-145.0) 03/18/20 12:14 ABG Potassium 3.3 mmol/L (3.40-4.50) L 03/18/20 12:14 ABG Chloride 112.0 mmol/L (98-107) H 03/18/20 12:14 ABG Glucose 355 mg/dL (65-95) H 03/18/20 12:14 Oxyhemoglobin 89.3 % (95.0-99.0) L 03/20/20 16:35 FiO2 35 % 03/20/20 16:35 Sodium 142 mmol/L (137-145) 03/23/20 09:35 Potassium 3.5 mmol/L (3.6-5.0) L 03/23/20 09:35 Chloride 102.8 mmol/L (98-107) 03/23/20 09:35 Carbon Dioxide 29 mmol/L (22-30) 03/23/20 09:35 Anion Gap 14 mmol/L 03/23/20 09:35 BUN 61 mg/dL (9-20) H 03/23/20 09:35 Creatinine 3.7 mg/dL (0.8-1.3) H 03/23/20 09:35 Estimated GFR 19 ml/min 03/23/20 09:35 BUN/Creatinine Ratio 16 % 03/23/20 09:35 Glucose 148 mg/dL (75-100) H 03/23/20 09:35 POC Glucose 166 mg/dL (70-105) H 03/23/20 06:09 Lactic Acid 1.80 mmol/L (0.7-2.0) 03/16/20 Unknown Calcium 8.4 mg/dL (8.4-10.2) 03/23/20 09:35 Phosphorus 4.90 mg/dL (2.5-4.5) H D 03/23/20 09:35 Magnesium 1.60 mg/dL (1.7-2.3) L 03/22/20 05:00 Total Bilirubin 0.20 mg/dL (0.1-1.2) 03/16/20 14:22 AST 22 units/L (5-40) 03/16/20 14:22 ALT 8 units/L (7-56) 03/16/20 14:22 Alkaline Phosphatase 224 units/L (35-129) H 03/16/20 14:22 Total Creatine Kinase 373 units/L (55-170) H 03/17/20 11:13 Troponin T 0.047 ng/mL (0.00-0.029) H D 03/16/20 22:25 Total Protein 5.4 g/dL (6.3-8.2) L 03/16/20 14:22 Albumin 1.9 g/dL (3.9-5) L 03/16/20 14:22 Albumin/Globulin Ratio 0.5 % 03/16/20 14:22 Triglycerides 107 mg/dL (2-149) 03/16/20 14:23 Cholesterol 95 mg/dL (50-199) 03/16/20 14:23 LDL Cholesterol Direct 35 mg/dL (50-130) L 03/16/20 14:23 HDL Cholesterol 37 mg/dL (40-59) L 03/16/20 14:23 Cholesterol/HDL Ratio 2.56 % 03/16/20 14:23 Procalcitonin 9.59 ng/mL (<0.15) 03/17/20 18:53 Arterial Blood Glucose 355 mg/dL (65-95) H 03/18/20 12:14 Arterial Blood Ionized Calcium 4.5 mg/dL (4.6-5.3) L 03/18/20 12:14 Urine Color Yellow (Yellow) 03/20/20 13:30 Urine Turbidity Turbid (Clear) 03/20/20 13:30 Urine pH 5.0 (5.0-7.0) 03/20/20 13:30 Ur Specific [place] 1.011 (1.003-1.030) 03/20/20 13:30 Urine Protein 100 mg/dl mg/dL (Negative) 03/20/20 13:30 Urine Glucose (UA) Neg mg/dL (Negative) 03/20/20 13:30 Urine Ketones Neg mg/dL (Negative) 03/20/20 13:30 Urine Blood Mod (Negative) 03/20/20 13:30 Urine Nitrite Neg (Negative) 03/20/20 13:30 Urine Bilirubin Neg (Negative) 03/20/20 13:30 Urine Urobilinogen < 2.0 mg/dL (<2.0) 03/20/20 13:30 Ur Leukocyte Esterase Mod (Negative) 03/20/20 13:30 Urine WBC (Auto) 153.0 /HPF (0.0-6.0) H 03/20/20 13:30 Urine RBC (Auto) 130.0 /HPF (0.0-6.0) 03/20/20 13:30 U Epithel Cells (Auto) 1.0 /HPF (0-13.0) 03/20/20 13:30 Urine Bacteria (Auto) 2+ /HPF (Negative) 03/20/20 13:30 Urine WBC Clumps 3+ /HPF 03/17/20 11:40 Urine Mucus Few /HPF 03/20/20 13:30 Urine Yeast (Budding) 3+ /HPF 03/20/20 13:30 Urine Creatinine 139.3 mg/dL (0.1-20.0) H 03/17/20 Unknown Protein/Creatinin Ratio 2.35 03/17/20 Unknown Urine Sodium 53 mmol/L 03/17/20 Unknown Urine Total Protein 328 mg/dL (5-11.8) H 03/17/20 Unknown Random Vancomycin 8.4 ug/mL (0-40.0) 03/18/20 04:40 C. difficile Tox (PCR) Positive (Negative) 03/19/20 23:59 Coronavirus (PCR) Negative (Negative) 03/17/20 09:03 Hepatitis A IgM Ab Non-reactive (NonReactive) 03/20/20 16:00 Hep Bs Antigen Non-reactive (Negative) 03/20/20 16:00 Hep B Core IgM Ab Non-reactive (NonReactive) 03/20/20 16:00 Hepatitis C Antibody Non-reactive (NonReactive) 03/20/20 16:00 Blood Type O POSITIVE 03/21/20 06:43 Antibody Screen Negative 03/21/20 06:43 Crossmatch See Detail 03/21/20 06:43 Microbiology: Microbiology 03/20/20 Unknown Urine,Catheterized - Indwelling Catheter Urine Culture - Final - Diagnostic Impressions Diagnostic Impressions: Echocardiogram 03/17/20 09:13 Transthoracic Echocardiogram Indication: Cardiogenic Shock BP: 126/62 Conclusions *Global left ventricular systolic function is normal. *Mild to moderate concentric left ventricular hypertrophy is observed. *The estimated ejection fraction is 55-60%. *The right ventricle is severely dilated. *The right ventricular global systolic function is moderately reduced. *Flattened in systole consistent with right ventricular pressure overload. *There is moderate aortic stenosis. *The mean gradient of the aortic valve is 20.93 mmHg. *Moderate aortic leaflet calcification is visualized. *There is mild aortic regurgitation. *There is mild mitral regurgitation. *There is mild tricuspid regurgitation. *The right ventricular systolic pressure is calculated at 46 mmHg. *There is trace pulmonic regurgitation. *A left pleural effusion is present. *There is no pericardial effusion. Findings Procedure Info: The study quality is good. Left Ventricle: The left ventricular chamber size is normal. Mild to moderate concentric left ventricular hypertrophy is observed. Global left ventricular systolic function is normal. The estimated ejection fraction is 55-60%. Abnormal left ventricular diastolic filling is observed, consistent with impaired relaxation. Left Atrium: The left atrium is normal in size with no visual thrombus identified. Right Ventricle: The right ventricle is severely dilated. The right ventricular global systolic function is moderately reduced. Flattened in systole consistent with right ventricular pressure overload. Right Atrium: The right atrium is moderately dilated. Aortic Valve: The aortic valve is trileaflet. Moderate aortic leaflet calcification is visualized. There is mild aortic regurgitation. There is moderate aortic stenosis. The mean gradient of the aortic valve is 20.93 mmHg. The peak instantaneous gradient of the aortic valve is 48.15 mmHg. The aortic valve area, by VTI's, is calculated at [id number] cm2. Mitral Valve: There is posterior mitral annular calcification. The mitral valve leaflets are mildly thickened. There is mild mitral regurgitation. There is no evidence of mitral stenosis. Tricuspid Valve: There is mild tricuspid regurgitation. The right ventricular systolic pressure is calculated at 46 mmHg. There is no tricuspid stenosis. Pulmonic Valve: The pulmonic valve appears normal. There is trace pulmonic regurgitation. There is no pulmonic stenosis. Pericardium: There is no pericardial effusion. A left pleural effusion is present. Aorta: The aorta appears normal. Pulmonary Artery: The main pulmonary artery appears normal. Venous: The inferior vena cava is dilated. There is less than 50% respiratory change in the inferior vena cava dimension. Measurements Chambers 2D Name Value Normal Range IVSd (2D) 1.24 cm (0.6 - 1.1) LVPWd (2D) 1.28 cm (0.6 - 1.1) LVIDd (2D) 4.39 cm (3.7 - 5.6) LVIDs (2D) 2.74 cm (2 - 3.8) LV FS (2D) 37.56 % - EF Teichholz (2D) 67.84 % - Ao root diameter (2D) 3.09 cm (2 - 3.7) Volumes/Mass Name Value Normal Range LA ESV SP 4CH (A/L) 61.48 ml - LA ESV SP 2CH (A/L) 74.82 ml - LA ESV BP (A/L) 70.19 ml - LA ESV BP (A/L) index 29.49 ml/m2 - LA ESV SP 4CH (MOD) 60.86 ml - LA ESV SP 2CH (MOD) 76.42 ml - LA ESV BP (MOD) 70.33 ml - LA ESV BP (MOD) index 29.55 ml/m2 - LV EDV SP 4CH (MOD) 54.09 ml - LV ESV SP 4CH (MOD) 19.25 ml - EF SP 4CH (MOD) 64.4 % - Diastolic/Systolic Function Name Value Normal Range MV E-wave Vmax 0.67 m/sec - MV deceleration time 137.49 msec - MV A-wave Vmax 0.88 m/sec - MV E:A ratio 0.77 ratio - Aortic Valve Name Value Normal Range AV Vmax 3.23 m/sec - AV VTI 54.14 cm - AV peak gradient 48.15 mmHg - AV mean gradient 20.93 mmHg - LVOT diameter 2.11 cm - LVOT Vmax 0.92 m/sec - LVOT VTI 17.92 cm - LVOT peak gradient 3.42 mmHg - LVOT mean gradient 1.46 mmHg - SV LVOT 62.51 ml - NAVIN (continuity Vmax) 1 cm2 - NAVIN (continuity VTI) 1.15 cm2 - AR PHT 720.82 msec - AR peak gradient 15.53 mmHg - Ascending Ao 3.71 cm - Tricuspid Valve Name Value Normal Range TV E-wave Vmax 0.51 m/sec - TR Vmax 2.8 m/sec - TR peak gradient 31.37 mmHg - RAP 15 mmHg - RVSP 46 mmHg - IVC diameter 2.4 cm (1.2 - 2.3) Pulmonic Valve/Qp:Qs Name Value Normal Range PV Vmax 1.09 m/sec - PV peak gradient 4.78 mmHg - RVOT Vmax 0.7 m/sec - RVOT VTI 13.89 cm - RVOT peak gradient 1.96 mmHg - PV acceleration time 95.15 msec - Cunningham/IV: Voiding Method Indwelling Catheter IV Catheter Type [right wrist] Peripheral IV IV Catheter Type [Right VAS Cath Femoral] IV Catheter Type [Right Upper PICC Line arm] IV Catheter Type [Left Upper PICC Line arm] Active Medications - Current Medications Current Medications: Generic Name Dose Route Start Last Admin Trade Name Freq PRN Reason Stop Dose Admin Acetaminophen 650 mg 03/19/20 18:21 03/19/20 18:39 Tylenol FEEDTUBE 650 mg Q6H PRN Administration Pain, Mild (1-3) Albuterol 2.5 mg 03/16/20 17:00 Proventil IH Q3HRT PRN Shortness Of Breath Lipase/Protease/Amylase 1 each 03/17/20 17:[address] 10,500 Unit FEEDTUBE PRN PRN For Clogged Feeding Tube Epoetin Colin 10,000 unit 03/21/20 09:00 Procrit IV DAYLIN IDRIS Famotidine 20 mg 03/18/20 10:00 03/23/20 11:16 Pepcid IV 20 mg DAILY IDRIS Administration Hydromorphone HCl 0.25 mg 03/16/20 17:30 Dilaudid IV Q4H PRN Pain, Moderate (4-6) Hydrophilic Ointment 1 applic 03/21/20 07:50 03/21/20 16:38 Aquaphor TP 1 applic Q12HR PRN Administration DRY SKIN Sodium Chloride 100 mls @ 999 mls/hr 03/20/20 15:38 Nacl 0.9% IV DAYLIN PRN Hypotension Metronidazole 500 mg in 100 mls @ 100 mls/hr 03/21/20 14:00 03/23/20 14:47 Flagyl 500 Mg/100 Ml IV 04/04/20 06:59 100 mls/hr Q8HR IDRIS Administration Protocol Argatroban 250 mg/ Sodium 250 mls @ 14.04 mls/hr 03/22/20 16:00 03/23/20 10:37 Chloride IV 1 mcg/kg/min TITR IDRIS 7.02 mls/hr Titration Protocol 2 MCG/KG/MIN Insulin Glargine 20 units 03/18/20 22:00 03/22/20 22:30 Lantus SUB-Q 20 units QHS IDRIS Administration Insulin Human Lispro 0 unit 03/18/20 12:00 03/23/20 13:03 Humalog SUB-Q Not Given Q6HR IDRIS Protocol Methylprednisolone Sodium Succinate 40 mg 03/16/20 22:00 03/23/20 14:47 Solu-Medrol IV 40 mg Q8HR IDRIS Administration Midodrine 10 mg 03/20/20 12:00 03/23/20 14:49 Proamatine PO 10 mg TID@0800,1200,1600 IDRIS Administration Simple Syrup 15 ml 03/17/20 17:12 Simple Syrup FEEDTUBE PRN PRN Hypoglycemia Simple Syrup 30 ml 03/17/20 17:12 Simple Syrup FEEDTUBE PRN PRN Hypoglycemia Sodium Bicarbonate 325 mg 03/17/20 17:12 Sodium Bicarbonate FEEDTUBE PRN PRN For Clogged Feeding Tube Sodium Chloride 10 ml 03/16/20 22:00 03/23/20 11:17 Sodium Chloride Flush Syringe 10 Ml IV 10 ml BID IDRIS Administration Sodium Chloride 10 ml 03/16/20 17:00 Sodium Chloride Flush Syringe 10 Ml IV PRN PRN LINE FLUSH Vancomycin HCl 250 mg 03/20/20 12:00 03/23/20 11:16 Vancomycin Po PO 04/03/20 06:01 250 mg Q6HR IDRIS Administration Nutrition/Malnutrition Assess - Dietary Evaluation Nutrition/Malnutrition Findings: Nutrition Notes Start: 03/18/20 09:15 Freq: Status: Active Protocol: Document 03/22/20 12:39 QUINTIN (Rec: 03/22/20 12:48 QUINTIN [id number]) Co-Sign 03/22/20 12:39 Nutrition Notes Initial or Follow up Reassessment Current Diagnosis Acute Kidney Injury,CKD(stage I-IV),Diabetes,Hypertension Other Pertinent Diagnosis Septic shock, debility, hypothermia, COVID-19 (-) Current Diet Nepro at 40 ml/hr (goal rate) Labs/Tests K 3.5 BUN 47 Cr 3.3 Mg 1.6 BG 171 Pertinent Medications KCl 40 mEq Mg 2 gm Solu-medrol Humalog Lantus Vancomycin Height 5 ft 11 in Weight 117 kg [place] Body Weight (kg) 78.18 BMI 35.9 Weight change and time frame Wt change noted. Pt had HD yesterday, removed 2 liters. Total fluid from flush and TF 1718ml/day. Weight Status Obese Subjective/Other Information F/u TF, K, Pt tolerating tube feed at goal rate. Diarrhea continues, pt tested positive for C.diff. May need to increase protein depending on ALEJANDRO and WOC assessment. Will monitor. Percent of energy/protein needs met: 95%/100% Burn Absent Trauma Absent GI Symptoms Diarrhea Skin Integrity/Comment dry, flaky skin, WOC consulted Current % PO Negligible Minimum of two criteria No Fluid Accumulation Moderate to Severe (severe) #1 Nutrition Diagnosis Inadequate oral intake Diagnosis Progress(for reassessment Continues documentation) Is patient on ventilator? No Is Patient Ambulatory and/or Out of Bed No REE-([facility]-confined to bed) 2282.928 Kcal/Kg value to use for calculation 16 Approximate Energy Requirements Using 1872 kcal/Kg Calculation Used for Recommendations Kcal/kg Additional Notes Protein: 80-120g/kg (0.8-1.2g/ kg using AdjBW 100kg) Fluid: 1ml/kcal or per MD Nutrition Intervention Change Diet Order: Continue TF Nutrition Support: Nepro 1.8 at 40ml/hr Flush 170ml q4h Kcal 1,728 Protein (gm) 78 Fluid (mL) 698 Goal #1 Meet at least 80% of energy and protein needs via TF Anticipated Discharge Needs: unable to determine at this time Follow-Up By: 03/24/20 Additional Comments F/u stable TF and WOC assessment
[2020-03-23] MEDS: ARGATROBAN 250 MG in SODIUM CHLORIDE 0.9% 250ML 247.5 ML IV SCH (18:27)
[2020-03-23] MEDS: INSULIN GLARGINE 100 UNITS/ML SUB-Q SCH (22:31)
[2020-03-24] MEDS: VANCOMYCIN 250 MG/10 ML ORAL LIQD PO SCH ×4 (00:57→18:48)
[2020-03-24] MEDS: INSULIN LISPRO 100 UNIT/ML VIAL 3 mL SUB-Q SCH ×4 (01:00→18:55)
[2020-03-24] MEDS: metroNIDAZOLE/NS 500 MG/100 ML 500 MG/100 ML BAG IV SCH (06:27)
[2020-03-24] MEDS: methylPREDNISolone Sod Succinate 40 MG/1 ML INJ IV SCH ×3 (06:28→21:42)
[2020-03-24 06:38] LABS: Hematocrit 33.3 % (35.5-45.6); Hemoglobin 10.7 gm/dl (11.8-15.2); Mean Corpuscular HGB Conc 32 % (32-34); Mean Corpuscular Volume 93 fl (84-94); Red Blood Count 3.57 M/mm3 (3.65-5.03); Red Cell Distribution Width 18.4 % (13.2-15.2)
[2020-03-24 06:50] LABS: Calcium 8.3 mg/dL (8.4-10.2)
[2020-03-24 07:00] LABS: Basophils % (Auto) 0.3 % (0.0-1.8); Eosinophils % (Auto) 0.1 % (0.0-4.3); Monocytes % (Auto) 3.2 % (0.0-7.3); Platelet Count 94 K/mm3 (140-440)
[2020-03-24 07:01] LABS: Basophils # (Auto) 0.1 K/mm3 (0.0-0.1); Lymphocytes # (Auto) 1.1 K/mm3 (1.2-5.4); Monocytes # (Auto) 0.9 K/mm3 (0.0-0.8)
--- NOTE | 2020-03-24 09:05 | Progress Note ---
Assessment and Plan Acute renal failure likely due to ischemic ATN Metabolic encphalopathy Metabolic acidosis Sepsis due to UTI UTI Hypokalemia Hypomagnesemia Hypoalbuminemia Anemia Plan: Cr and BUN cont to rise slowly, oliguric HD today for clearance and volume removal 24 hours creatinine clearance ordered for tomorrow, if kidney function remains low will request permcath Friday S/P IJ Vascath by Vascular Surgery and first HD 03/20 and received HD again yesterday Epogen with HD for anemia Has weldon and rectal bag Renally dose medications Strict I&O monitoring Obtain daily weights Monitor renal function closely Subjective Date of service: 03/24/20 Principal diagnosis: Acute hypoxemic respiratory failure; Septic shock; Ac. encephalopathy; ALEJANDRO Interval history: no acute distress Objective - Vital Signs Vital signs: Vital Signs - 12hr 03/23/20 03/23/20 03/23/20 21:25 21:30 22:55 Temperature 97.4 F L Pulse Rate 62 69 Pulse Rate [ 69 Apical] Respiratory 18 18 Rate Blood Pressure 129/74 O2 Sat by Pulse 100 100 Oximetry 03/24/20 03/24/20 01:30 03:49 Temperature 97.6 F Pulse Rate 63 Pulse Rate [ Apical] Respiratory 20 22 Rate Blood Pressure 138/76 O2 Sat by Pulse 100 Oximetry - Lab 03/24/20 05:19 03/24/20 05:19 Most recent lab results ABG pH 7.378 pH Units (7.350-7.450) 03/20/20 16:35 ABG pCO2 38.6 mm Hg 03/20/20 16:35 ABG pO2 63.9 mm Hg (80.0-90.0) L 03/20/20 16:35 ABG HCO3 22.2 mmol/L (20.0-26.0) 03/20/20 16:35 ABG O2 Saturation 90.9 % (95.0-99.0) L 03/20/20 16:35 Calcium 8.3 mg/dL (8.4-10.2) L 03/24/20 05:19 Phosphorus 5.80 mg/dL (2.5-4.5) H 03/24/20 05:19 Magnesium 1.60 mg/dL (1.7-2.3) L 03/22/20 05:00 Urine Creatinine 139.3 mg/dL (0.1-20.0) H 03/17/20 Unknown Urine Sodium 53 mmol/L 03/17/20 Unknown Urine Total Protein 328 mg/dL (5-11.8) H 03/17/20 Unknown Medications & Allergies - Medications Allergies/Adverse Reactions: Allergies diclofenac [Diclofenac] Allergy (Verified 10/05/18 08:11) Rash Home Medications: Home Medications Medication Instructions Recorded Confirmed Last Taken Type Acetaminophen [Acetaminophen TAB] 650 mg PO Q4H PRN #1 tablet 02/28/17 03/19/20 Unknown Rx Aspirin [Aspirin BABY CHEW TAB] 81 mg PO DAILY #1 tab.chew 02/28/17 03/19/20 Unknown Rx Ferrous Sulfate [Feosol 325 MG tab] 325 mg PO QDAY #1 tablet 02/28/17 03/19/20 Unknown Rx Gabapentin 300 mg PO Q8HR #1 capsule 02/28/17 03/19/20 Unknown Rx Ondansetron [Zofran INJ] 4 mg IV Q8H PRN #1 vial 02/28/17 03/19/20 Unknown Rx amLODIPine 10 mg PO DAILY #1 tablet 02/28/17 03/19/20 Unknown Rx Ertapenem [INVanz] 1 gm IV QDAY vial 03/10/20 03/19/20 Unknown Rx Active Medications: Generic Name Dose Route Start Last Admin Trade Name Christianq PRN Reason Stop Dose Admin Acetaminophen 650 mg 03/19/20 18:21 03/19/20 18:39 Tylenol FEEDTUBE 650 mg Q6H PRN Administration Pain, Mild (1-3) Albuterol 2.5 mg 03/16/20 17:00 Proventil IH Q3HRT PRN Shortness Of Breath Lipase/Protease/Amylase 1 each 03/17/20 17:12 Pancreaze 10,500 Unit FEEDTUBE PRN PRN For Clogged Feeding Tube Epoetin Colin 10,000 unit 03/21/20 09:00 Procrit IV DAYLIN IDRIS Famotidine 20 mg 03/18/20 10:00 03/23/20 11:16 Pepcid IV 20 mg DAILY IDRIS Administration Hydromorphone HCl 0.25 mg 03/16/20 17:30 Dilaudid IV Q4H PRN Pain, Moderate (4-6) Hydrophilic Ointment 1 applic 03/21/20 07:50 03/21/20 16:38 Aquaphor TP 1 applic Q12HR PRN Administration DRY SKIN Sodium Chloride 100 mls @ 999 mls/hr 03/20/20 15:38 Nacl 0.9% IV DAYLIN PRN Hypotension Metronidazole 500 mg in 100 mls @ 100 mls/hr 03/21/20 14:00 03/24/20 06:27 Flagyl 500 Mg/100 Ml IV 04/04/20 06:59 100 mls/hr Q8HR IDRIS Administration Protocol Argatroban 250 mg/ Sodium 250 mls @ 14.04 mls/hr 03/22/20 16:00 03/24/20 07:45 Chloride IV 0.5 mcg/kg/min TITR IDRIS 3.51 mls/hr Titration Protocol 2 MCG/KG/MIN Insulin Glargine 20 units 03/18/20 22:00 03/23/20 22:31 Lantus SUB-Q 20 units QHS IDRIS Administration Insulin Human Lispro 0 unit 03/18/20 12:00 03/24/20 06:29 Humalog SUB-Q Not Given Q6HR [facility] Protocol Methylprednisolone Sodium Succinate 40 mg 03/24/20 10:00 Solu-Medrol IV Q12HR IDRIS Midodrine 10 mg 03/20/20 12:00 03/23/20 17:57 Proamatine PO 10 mg TID@0800,1200,1600 IDRIS Administration Simple Syrup 15 ml 03/17/20 17:12 Simple Syrup FEEDTUBE PRN PRN Hypoglycemia Simple Syrup 30 ml 03/17/20 17:12 Simple Syrup FEEDTUBE PRN PRN Hypoglycemia Sodium Bicarbonate 325 mg 03/17/20 17:12 Sodium Bicarbonate FEEDTUBE PRN PRN For Clogged Feeding Tube Sodium Chloride 10 ml 03/16/20 22:00 03/23/20 22:32 Sodium Chloride Flush Syringe 10 Ml IV 10 ml BID IDRIS Administration Sodium Chloride 10 ml 03/16/20 17:00 Sodium Chloride Flush Syringe 10 Ml IV PRN PRN LINE FLUSH Vancomycin HCl 250 mg 03/20/20 12:00 03/24/20 06:28 Vancomycin Po PO 04/03/20 06:01 250 mg Q6HR IDRIS Administration
[2020-03-24] MEDS: FAMOTIDINE 20 MG/2 ML INJ IV SCH (09:23)
[2020-03-24] MEDS: MIDODRINE 5 MG TAB PO SCH ×3 (09:23→15:06)
--- NOTE | 2020-03-24 10:54 | Progress Note ---
Assessment and Plan Assessment and plan: Assessment and plan: Patient is a 79-year-old male with a past medical history of encephalopathy, hypertension, generalized weakness, diabetes type 2, chronic lipidemia, DVT, respiratory failure with hypoxia, CVA, and CKD presents [facility] with complaint of sepsis with hypotension, alteration mental status, and her labs collected yesterday that resulted today showing a WBC count of 36. Of note patient was recently discharged from the hospital with ertapenem 1 g IV daily ESBL E. coli bacteremia with started on March 11 with plan in date March 21 via PICC line Patient unfortunately continues to worsen despite antibiotic treatment is nonverbal not able to follow any commands and now experiencing multiorgan failure. [facility]FP vital signs BP of 66/36, heart rate 62, respiratory rate 16, blood glucose 230, and patient presents on 3 L of nasal cannula oxygen satting 98% Patient had a negative Covid test during admission here March 02. 03/17 Patient also found to have acute kidney injury with acute tubular necrosis, toxic metabolic encephalopathy, metabolic acidosis and hypothermia. The patient is critically ill with a poor prognosis, sepsis protocol was initiated with an ICU admission. Patient was seen by nurse emergency room pressors were increased with also bicarb drip started. Unfortunately bicarb drip had to be held due to PICC line compatibility. A new PICC line has been inserted this morning. Admitting physician did speak with the son and discussed prognosis. I did also call the son this morning who informs me that the brother who is physician is coming into town and will give us further recommendation on arrival. Patient has been started on a third pressor which is epinephrine at this time. To my examination awaiting nephrology evaluation. We will proceed with giving additional 2 L of fluids and also obtain a stat echocardiogram to see what patient's cardiac level is. Based on ejection fraction patient may benefit from dobutamine. Will place BiPAP on standby and if need be and family does not opposed to continued full code we will proceed with likely intubation so the patient can be adequately volume resuscitated. -Continue empiric antibiotic coverage. ID consultation. Critical care assistance and input noted. Fluid Resuscitation As Noted above Continue Diet. Change IV access for triple-lumen PICC line. Will follow cultures. We will also obtain wound care consultation. 03/18: Continue current management, may need dialysis but not a candidate for HD due to 3 Pressors. NO Diarrhea at this time. If not improving respiratory lopez may need Intubation. 03/19: Continue supportive care, mental status showing some improvement, still on BIPAP. BP improving will stop Epi and bring down to 2 pressors. Awaiting ECHO. IF continues to have worsening Renal function, May need transfer to [facility] if unable to perform HD. Patients son updated of current clinically status. 03/20: Right femoral catheter-vas cath Placed for HD. Hypokalemia to be corrected, will give Potassium 20meq. Continue IV abx, no growth so far noted, wean pressors as tolerated, may consider adding Midodrine. WBC trending down. Prior noted Ecoli Bactermia is not noted so far on the blood culture. Continue HD as tolerated, Sodium bicarb drip due to acidosis. 03/21. He has no complaints today. Patient continues to ask when he will be discharged. Labs showed persistent hypokalemia. Continue potassium replacement. Hemoglobin 6.0. Patient will get transfused 1 unit PRBC. 03/22. Hemoglobin stable today. Vascular surgery consulted for femoral line replacement 03/23. Patient seen in the BiPAP. Still has diarrhea and is on vancomycin. Afebrile overnight. Labs reviewed 03/24. Patient may need permacath placement on Friday. 24-hour urine collection ordered as per renal. Monitor rectal tube output closely. PT/OT Assessment and plan Septic shock This has resolved C. difficile infection Continue p.o. vancomycin 250 mg every 6 hours for 14 days ID recommendations appreciated Anemia OF Chronic Disease Monitor hemoglobin Transfused as needed to hemoglobin 7 Electrolyte abnormalities-hypokalemia, hypomagnesemia Replete as needed Acute renal failure likely due to ischemic ATN Now on hemodialysis. Nephrology recommendations appreciated Permacath placement on Friday pending urine test Metabolic Acidosis Resolved. Discontinue sodium bicarb and monitor Acute hypoxic Respiratory failure. Continue oxygen supplementation Acute toxic metabolic encephalopathy Improved Ruled out COVID-19 Hypothermia Resolved Thrombocytopenia Possibly from ongoing infection Trend platelets Send HIT antibody Argatroban for now PT/OT-back to facility DVT prophylaxis - Argatroban for now Patient is full code History Interval history: Patient seen and examined at bedside this morning. Transferred to regular floors Has no complaints today Consulted vascular surgery for replacement of femoral line however, patient may need a permacath placement pending 24-hour urine collection Stable vitals Hospitalist Physical - Physical exam Narrative exam: VITAL SIGNS: Reviewed. GENERAL: Awake HEAD: No signs of head trauma. EYES: Pupils are equal. MOUTH: Oropharynx is normal otherwise dry. NECK: No adenopathy, no JVD. CHEST: Chest with diminished breath sounds bilaterally. No wheezes, rales, or rhonchi. CARDIAC: Regular rate and rhythm. S1 and S2, without murmurs, gallops, or rubs. VASCULAR: chronic Edema. Peripheral pulses normal and equal in all extremities. ABDOMEN: Soft, non tender and non distended. No rebound or guarding, and no masses palpated. Bowel Sounds normal. MUSCULOSKELETAL: Chronic venous changes bilateral lower ext NEUROLOGIC EXAM: Awake and alert SKIN: Multiple excoriations multiple pressure ulcers, detail exam as documented in skin assessment - Constitutional Vitals: Temp Pulse Resp BP Pulse Ox 97.6 F 78 22 129/67 92 03/24/20 09:33 03/24/20 09:33 03/24/20 09:33 03/24/20 09:33 03/24/20 09:33 General appearance: Present: severe distress HEART Score - HEART Score Troponin: Troponin T 0.047 ng/mL (0.00-0.029) H D 03/16/20 22:25 Results - Labs CBC & Chem 7: 03/24/20 05:19 03/24/20 05:19 Labs: Laboratory Last Values WBC 28.6 K/mm3 (4.5-11.0) H 03/24/20 05:19 RBC 3.57 M/mm3 (3.65-5.03) L 03/24/20 05:19 Hgb 10.7 gm/dl (11.8-15.2) L 03/24/20 05:19 Hct 33.3 % (35.5-45.6) L 03/24/20 05:19 MCV 93 fl (84-94) 03/24/20 05:19 MCH 30 pg (28-32) 03/24/20 05:19 MCHC 32 % (32-34) 03/24/20 05:19 RDW 18.4 % (13.2-15.2) H 03/24/20 05:19 Plt Count 94 K/mm3 (140-440) L 03/24/20 05:19 Lymph % (Auto) 4.0 % (13.4-35.0) L 03/24/20 05:19 [place] % (Auto) 3.2 % (0.0-7.3) 03/24/20 05:19 Eos % (Auto) 0.1 % (0.0-4.3) 03/24/20 05:19 Baso % (Auto) 0.3 % (0.0-1.8) 03/24/20 05:19 Lymph # (Auto) 1.1 K/mm3 (1.2-5.4) L 03/24/20 05:19 [place] # (Auto) 0.9 K/mm3 (0.0-0.8) H 03/24/20 05:19 Eos # (Auto) 0.0 K/mm3 (0.0-0.4) 03/24/20 05:19 Baso # (Auto) 0.1 K/mm3 (0.0-0.1) 03/24/20 05:19 Add Manual Diff Complete 03/23/20 09:35 Total Counted 100 03/23/20 09:35 Seg Neutrophils % Nuclear Technician 03/24/20 05:19 Seg Neuts % (Manual) 94.0 % (40.0-70.0) H 03/23/20 09:35 Band Neutrophils % 3.0 % 03/23/20 09:35 Lymphocytes % (Manual) 2.0 % (13.4-35.0) L 03/23/20 09:35 Reactive Lymphs % (Man) 0 % 03/23/20 09:35 Monocytes % (Manual) 1.0 % (0.0-7.3) 03/23/20 09:35 Eosinophils % (Manual) 0 % (0.0-4.3) 03/23/20 09:35 Basophils % (Manual) 0 % (0.0-1.8) 03/23/20 09:35 Metamyelocytes % 0 % 03/23/20 09:35 Myelocytes % 0 % 03/23/20 09:35 Promyelocytes % 0 % 03/23/20 09:35 Blast Cells % 0 % 03/23/20 09:35 Nucleated RBC % 1.0 % (0.0-0.9) H 03/23/20 09:35 Seg Neutrophils # 26.4 K/mm3 (1.8-7.7) H 03/24/20 05:19 Seg Neutrophils # Man 25.3 K/mm3 (1.8-7.7) H 03/23/20 09:35 Band Neutrophils # 0.8 K/mm3 03/23/20 09:35 Lymphocytes # (Manual) 0.5 K/mm3 (1.2-5.4) L 03/23/20 09:35 Abs React Lymphs (Man) 0.0 K/mm3 03/23/20 09:35 Monocytes # (Manual) 0.3 K/mm3 (0.0-0.8) 03/23/20 09:35 Eosinophils # (Manual) 0.0 K/mm3 (0.0-0.4) 03/23/20 09:35 Basophils # (Manual) 0.0 K/mm3 (0.0-0.1) 03/23/20 09:35 Metamyelocytes # 0.0 K/mm3 03/23/20 09:35 Myelocytes # 0.0 K/mm3 03/23/20 09:35 Promyelocytes # 0.0 K/mm3 03/23/20 09:35 Blast Cells # 0.0 K/mm3 03/23/20 09:35 Pathologist Review 03/16/20 14:22 WBC Morphology Not Reportable 03/23/20 09:35 Hypersegmented Neuts Not Reportable 03/23/20 09:35 Hyposegmented Neuts Not Reportable 03/23/20 09:35 Hypogranular Neuts Not Reportable 03/23/20 09:35 Smudge Cells Not Reportable 03/23/20 09:35 Toxic Granulation Not Reportable 03/23/20 09:35 Toxic Vacuolation Not Reportable 03/23/20 09:35 Dohle Bodies Not Reportable 03/23/20 09:35 Pelger-Huet Anomaly Not Reportable 03/23/20 09:35 Santiago Rods Not Reportable 03/23/20 09:35 Platelet Estimate Consistent w auto 03/23/20 09:35 Clumped Platelets Not Reportable 03/23/20 09:35 Plt Clumps, EDTA Not Reportable 03/23/20 09:35 Large Platelets Not Reportable 03/23/20 09:35 Giant Platelets Not Reportable 03/23/20 09:35 Platelet Satelliting Not Reportable 03/23/20 09:35 Plt Morphology Comment Not Reportable 03/23/20 09:35 RBC Morphology Not Reportable 03/23/20 09:35 Dimorphic RBCs Not Reportable 03/23/20 09:35 Polychromasia Few 03/23/20 09:35 Hypochromasia 1+ 03/23/20 09:35 Poikilocytosis Few 03/23/20 09:35 Anisocytosis 1+ 03/23/20 09:35 Microcytosis Not Reportable 03/23/20 09:35 Macrocytosis Not Reportable 03/23/20 09:35 Spherocytes Not Reportable 03/23/20 09:35 Pappenheimer Bodies Not Reportable 03/23/20 09:35 Sickle Cells Not Reportable 03/23/20 09:35 Target Cells Not Reportable 03/23/20 09:35 Tear Drop Cells Not Reportable 03/23/20 09:35 Ovalocytes Not Reportable 03/23/20 09:35 Helmet Cells Not Reportable 03/23/20 09:35 Smith-Slaton Bodies Not Reportable 03/23/20 09:35 [place] Rings Not Reportable 03/23/20 09:35 Luis Alfredo Cells Few 03/23/20 09:35 Bite Cells Not Reportable 03/23/20 09:35 Crenated Cell Not Reportable 03/23/20 09:35 Elliptocytes Not Reportable 03/23/20 09:35 Acanthocytes (Spur) Not Reportable 03/23/20 09:35 Rouleaux Not Reportable 03/23/20 09:35 Hemoglobin C Crystals Not Reportable 03/23/20 09:35 Schistocytes Not Reportable 03/23/20 09:35 Malaria parasites Not Reportable 03/23/20 09:35 Isauro Bodies Not Reportable 03/23/20 09:35 Hem Pathologist Commnt No 03/23/20 09:35 PT 14.3 Sec. (12.2-14.9) 03/22/20 16:30 INR 1.09 (0.87-1.13) 03/22/20 16:30 APTT 91.5 Sec. (24.2-36.6) H* 03/24/20 05:19 ABG pH 7.378 pH Units (7.350-7.450) 03/20/20 16:35 POC ABG pCO2 37.3 mmHg (32.0-48.0) 03/18/20 12:14 ABG pCO2 38.6 mm Hg 03/20/20 16:35 POC ABG pO2 67.4 mmHg (83-108) L 03/18/20 12:14 ABG pO2 63.9 mm Hg (80.0-90.0) L 03/20/20 16:35 POC ABG HCO3 14.1 03/18/20 12:14 ABG HCO3 22.2 mmol/L (20.0-26.0) 03/20/20 16:35 ABG O2 Saturation 90.9 % (95.0-99.0) L 03/20/20 16:35 ABG O2 Content 12.0 (0.0-44) 03/20/20 16:35 POC ABG Base Excess -13.0 03/18/20 12:14 ABG Base Excess -2.6 mmol/L (-2.0-3.0) L 03/20/20 16:35 ABG Hemoglobin 9.5 gm/dl (14.0-18.0) L 03/20/20 16:35 ABG Carboxyhemoglobin 1.3 % (0.0-5.0) 03/20/20 16:35 ABG Methemoglobin 0.5 % (0.0-1.5) 03/20/20 16:35 ABG Sodium 138.8 mmol/L (136.0-145.0) 03/18/20 12:14 ABG Potassium 3.3 mmol/L (3.40-4.50) L 03/18/20 12:14 ABG Chloride 112.0 mmol/L (98-107) H 03/18/20 12:14 ABG Glucose 355 mg/dL (65-95) H 03/18/20 12:14 Oxyhemoglobin 89.3 % (95.0-99.0) L 03/20/20 16:35 FiO2 35 % 03/20/20 16:35 Sodium 146 mmol/L (137-145) H 03/24/20 05:19 Potassium 3.5 mmol/L (3.6-5.0) L 03/24/20 05:19 Chloride 105.2 mmol/L (98-107) 03/24/20 05:19 Carbon Dioxide 23 mmol/L (22-30) 03/24/20 05:19 Anion Gap 21 mmol/L 03/24/20 05:19 BUN 71 mg/dL (9-20) H 03/24/20 05:19 Creatinine 3.9 mg/dL (0.8-1.3) H 03/24/20 05:19 Estimated GFR 18 ml/min 03/24/20 05:19 BUN/Creatinine Ratio 18 % 03/24/20 05:19 Glucose 141 mg/dL (75-100) H 03/24/20 05:19 POC Glucose 153 mg/dL (70-105) H 03/24/20 06:35 Lactic Acid 1.80 mmol/L (0.7-2.0) 03/16/20 Unknown Calcium 8.3 mg/dL (8.4-10.2) L 03/24/20 05:19 Phosphorus 5.80 mg/dL (2.5-4.5) H 03/24/20 05:19 Magnesium 1.60 mg/dL (1.7-2.3) L 03/22/20 05:00 Total Bilirubin 0.20 mg/dL (0.1-1.2) 03/16/20 14:22 AST 22 units/L (5-40) 03/16/20 14:22 ALT 8 units/L (7-56) 03/16/20 14:22 Alkaline Phosphatase 224 units/L (35-129) H 03/16/20 14:22 Total Creatine Kinase 373 units/L (55-170) H 03/17/20 11:13 Troponin T 0.047 ng/mL (0.00-0.029) H D 03/16/20 22:25 Total Protein 5.4 g/dL (6.3-8.2) L 03/16/20 14:22 Albumin 1.9 g/dL (3.9-5) L 03/16/20 14:22 Albumin/Globulin Ratio 0.5 % 03/16/20 14:22 Triglycerides 107 mg/dL (2-149) 03/16/20 14:23 Cholesterol 95 mg/dL (50-199) 03/16/20 14:23 LDL Cholesterol Direct 35 mg/dL (50-130) L 03/16/20 14:23 HDL Cholesterol 37 mg/dL (40-59) L 03/16/20 14:23 Cholesterol/HDL Ratio 2.56 % 03/16/20 14:23 Procalcitonin 9.59 ng/mL (<0.15) 03/17/20 18:53 Arterial Blood Glucose 355 mg/dL (65-95) H 03/18/20 12:14 Arterial Blood Ionized Calcium 4.5 mg/dL (4.6-5.3) L 03/18/20 12:14 Urine Color Yellow (Yellow) 03/20/20 13:30 Urine Turbidity Turbid (Clear) 03/20/20 13:30 Urine pH 5.0 (5.0-7.0) 03/20/20 13:30 Ur Specific [place] 1.011 (1.003-1.030) 03/20/20 13:30 Urine Protein 100 mg/dl mg/dL (Negative) 03/20/20 13:30 Urine Glucose (UA) Neg mg/dL (Negative) 03/20/20 13:30 Urine Ketones Neg mg/dL (Negative) 03/20/20 13:30 Urine Blood Mod (Negative) 03/20/20 13:30 Urine Nitrite Neg (Negative) 03/20/20 13:30 Urine Bilirubin Neg (Negative) 03/20/20 13:30 Urine Urobilinogen < 2.0 mg/dL (<2.0) 03/20/20 13:30 Ur Leukocyte Esterase Mod (Negative) 03/20/20 13:30 Urine WBC (Auto) 153.0 /HPF (0.0-6.0) H 03/20/20 13:30 Urine RBC (Auto) 130.0 /HPF (0.0-6.0) 03/20/20 13:30 U Epithel Cells (Auto) 1.0 /HPF (0-13.0) 03/20/20 13:30 Urine Bacteria (Auto) 2+ /HPF (Negative) 03/20/20 13:30 Urine WBC Clumps 3+ /HPF 03/17/20 11:40 Urine Mucus Few /HPF 03/20/20 13:30 Urine Yeast (Budding) 3+ /HPF 03/20/20 13:30 Urine Creatinine 139.3 mg/dL (0.1-20.0) H 03/17/20 Unknown Protein/Creatinin Ratio 2.35 03/17/20 Unknown Urine Sodium 53 mmol/L 03/17/20 Unknown Urine Total Protein 328 mg/dL (5-11.8) H 03/17/20 Unknown Random Vancomycin 8.4 ug/mL (0-40.0) 03/18/20 04:40 C. difficile Tox (PCR) Positive (Negative) 03/19/20 23:59 Coronavirus (PCR) Negative (Negative) 03/17/20 09:03 Hepatitis A IgM Ab Non-reactive (NonReactive) 03/20/20 16:00 Hep Bs Antigen Non-reactive (Negative) 03/20/20 16:00 Hep B Core IgM Ab Non-reactive (NonReactive) 03/20/20 16:00 Hepatitis C Antibody Non-reactive (NonReactive) 03/20/20 16:00 Blood Type O POSITIVE 03/21/20 06:43 Antibody Screen Negative 03/21/20 06:43 Crossmatch See Detail 03/21/20 06:43 - Diagnostic Impressions Diagnostic Impressions: Echocardiogram 03/17/20 09:13 Transthoracic Echocardiogram Indication: Cardiogenic Shock BP: 126/62 Conclusions *Global left ventricular systolic function is normal. *Mild to moderate concentric left ventricular hypertrophy is observed. *The estimated ejection fraction is 55-60%. *The right ventricle is severely dilated. *The right ventricular global systolic function is moderately reduced. *Flattened in systole consistent with right ventricular pressure overload. *There is moderate aortic stenosis. *The mean gradient of the aortic valve is 20.93 mmHg. *Moderate aortic leaflet calcification is visualized. *There is mild aortic regurgitation. *There is mild mitral regurgitation. *There is mild tricuspid regurgitation. *The right ventricular systolic pressure is calculated at 46 mmHg. *There is trace pulmonic regurgitation. *A left pleural effusion is present. *There is no pericardial effusion. Findings Procedure Info: The study quality is good. Left Ventricle: The left ventricular chamber size is normal. Mild to moderate concentric left ventricular hypertrophy is observed. Global left ventricular systolic function is normal. The estimated ejection fraction is 55-60%. Abnormal left ventricular diastolic filling is observed, consistent with impaired relaxation. Left Atrium: The left atrium is normal in size with no visual thrombus identified. Right Ventricle: The right ventricle is severely dilated. The right ventricular global systolic function is moderately reduced. Flattened in systole consistent with right ventricular pressure overload. Right Atrium: The right atrium is moderately dilated. Aortic Valve: The aortic valve is trileaflet. Moderate aortic leaflet calcification is visualized. There is mild aortic regurgitation. There is moderate aortic stenosis. The mean gradient of the aortic valve is 20.93 mmHg. The peak instantaneous gradient of the aortic valve is 48.15 mmHg. The aortic valve area, by VTI's, is calculated at [id number] cm2. Mitral Valve: There is posterior mitral annular calcification. The mitral valve leaflets are mildly thickened. There is mild mitral regurgitation. There is no evidence of mitral stenosis. Tricuspid Valve: There is mild tricuspid regurgitation. The right ventricular systolic pressure is calculated at 46 mmHg. There is no tricuspid stenosis. Pulmonic Valve: The pulmonic valve appears normal. There is trace pulmonic regurgitation. There is no pulmonic stenosis. Pericardium: There is no pericardial effusion. A left pleural effusion is present. Aorta: The aorta appears normal. Pulmonary Artery: The main pulmonary artery appears normal. Venous: The inferior vena cava is dilated. There is less than 50% respiratory change in the inferior vena cava dimension. Measurements Chambers 2D Name Value Normal Range IVSd (2D) 1.24 cm (0.6 - 1.1) LVPWd (2D) 1.28 cm (0.6 - 1.1) LVIDd (2D) 4.39 cm (3.7 - 5.6) LVIDs (2D) 2.74 cm (2 - 3.8) LV FS (2D) 37.56 % - EF Teichholz (2D) 67.84 % - Ao root diameter (2D) 3.09 cm (2 - 3.7) Volumes/Mass Name Value Normal Range LA ESV SP 4CH (A/L) 61.48 ml - LA ESV SP 2CH (A/L) 74.82 ml - LA ESV BP (A/L) 70.19 ml - LA ESV BP (A/L) index 29.49 ml/m2 - LA ESV SP 4CH (MOD) 60.86 ml - LA ESV SP 2CH (MOD) 76.42 ml - LA ESV BP (MOD) 70.33 ml - LA ESV BP (MOD) index 29.55 ml/m2 - LV EDV SP 4CH (MOD) 54.09 ml - LV ESV SP 4CH (MOD) 19.25 ml - EF SP 4CH (MOD) 64.4 % - Diastolic/Systolic Function Name Value Normal Range MV E-wave Vmax 0.67 m/sec - MV deceleration time 137.49 msec - MV A-wave Vmax 0.88 m/sec - MV E:A ratio 0.77 ratio - Aortic Valve Name Value Normal Range AV Vmax 3.23 m/sec - AV VTI 54.14 cm - AV peak gradient 48.15 mmHg - AV mean gradient 20.93 mmHg - LVOT diameter 2.11 cm - LVOT Vmax 0.92 m/sec - LVOT VTI 17.92 cm - LVOT peak gradient 3.42 mmHg - LVOT mean gradient 1.46 mmHg - SV LVOT 62.51 ml - NAVIN (continuity Vmax) 1 cm2 - NAVIN (continuity VTI) 1.15 cm2 - AR PHT 720.82 msec - AR peak gradient 15.53 mmHg - Ascending Ao 3.71 cm - Tricuspid Valve Name Value Normal Range TV E-wave Vmax 0.51 m/sec - TR Vmax 2.8 m/sec - TR peak gradient 31.37 mmHg - RAP 15 mmHg - RVSP 46 mmHg - IVC diameter 2.4 cm (1.2 - 2.3) Pulmonic Valve/Qp:Qs Name Value Normal Range PV Vmax 1.09 m/sec - PV peak gradient 4.78 mmHg - RVOT Vmax 0.7 m/sec - RVOT VTI 13.89 cm - RVOT peak gradient 1.96 mmHg - PV acceleration time 95.15 msec - Cunningham/IV: Voiding Method Indwelling Catheter IV Catheter Type [right wrist] Peripheral IV IV Catheter Type [Right Trilysis Femoral] IV Catheter Type [Right Upper PICC Line arm] IV Catheter Type [Left Upper Mid-line arm] Active Medications - Current Medications Current Medications: Generic Name Dose Route Start Last Admin Trade Name Freq PRN Reason Stop Dose Admin Acetaminophen 650 mg 03/19/20 18:21 03/19/20 18:39 Tylenol FEEDTUBE 650 mg Q6H PRN Administration Pain, Mild (1-3) Albuterol 2.5 mg 03/16/20 17:00 Proventil IH Q3HRT PRN Shortness Of Breath Lipase/Protease/Amylase 1 each 03/17/20 17:12 Pancreazanitha Granger 10,500 Unit FEEDTUBE PRN PRN For Clogged Feeding Tube Epoetin Colin 10,000 unit 03/21/20 09:00 Procrit IV DAYLIN IDRIS Famotidine 20 mg 03/18/20 10:00 03/24/20 09:23 Pepcid IV 20 mg DAILY IDRIS Administration Hydromorphone HCl 0.25 mg 03/16/20 17:30 Dilaudid IV Q4H PRN Pain, Moderate (4-6) Hydrophilic Ointment 1 applic 03/21/20 07:50 03/21/20 16:38 Aquaphor TP 1 applic Q12HR PRN Administration DRY SKIN Sodium Chloride 100 mls @ 999 mls/hr 03/20/20 15:38 Nacl 0.9% IV DAYLIN PRN Hypotension Metronidazole 500 mg in 100 mls @ 100 mls/hr 03/21/20 14:00 03/24/20 06:27 Flagyl 500 Mg/100 Ml IV 04/04/20 06:59 100 mls/hr Q8HR IDRIS Administration Protocol Argatroban 250 mg/ Sodium 250 mls @ 14.04 mls/hr 03/22/20 16:00 03/24/20 07:45 Chloride IV 0.5 mcg/kg/min TITR IDRIS 3.51 mls/hr Titration Protocol 2 MCG/KG/MIN Insulin Glargine 20 units 03/18/20 22:00 03/23/20 22:31 Lantus SUB-Q 20 units QHS IDRIS Administration Insulin Human Lispro 0 unit 03/18/20 12:00 03/24/20 06:29 Humalog SUB-Q Not Given Q6HR [facility] Protocol Methylprednisolone Sodium Succinate 40 mg 03/24/20 10:00 03/24/20 09:22 Solu-Medrol IV 40 mg Q12HR IDRIS Administration Midodrine 10 mg 03/20/20 12:00 03/24/20 09:23 Proamatine PO 10 mg TID@0800,1200,1600 IDRIS Administration Simple Syrup 15 ml 03/17/20 17:12 Simple Syrup FEEDTUBE PRN PRN Hypoglycemia Simple Syrup 30 ml 03/17/20 17:12 Simple Syrup FEEDTUBE PRN PRN Hypoglycemia Sodium Bicarbonate 325 mg 03/17/20 17:12 Sodium Bicarbonate FEEDTUBE PRN PRN For Clogged Feeding Tube Sodium Chloride 10 ml 03/16/20 22:00 03/23/20 22:32 Sodium Chloride Flush Syringe 10 Ml IV 10 ml BID IDRIS Administration Sodium Chloride 10 ml 03/16/20 17:00 Sodium Chloride Flush Syringe 10 Ml IV PRN PRN LINE FLUSH Vancomycin HCl 250 mg 03/20/20 12:00 03/24/20 06:28 Vancomycin Po PO 04/03/20 06:01 250 mg Q6HR IDRIS Administration Nutrition/Malnutrition Assess - Dietary Evaluation Nutrition/Malnutrition Findings: Nutrition Notes Start: 03/18/20 09:15 Freq: Status: Active Protocol: Document 03/22/20 12:39 QUINTIN (Rec: 03/22/20 12:48 QUINTIN [id number]) Co-Sign 03/22/20 12:39 MK Nutrition Notes Initial or Follow up Reassessment Current Diagnosis Acute Kidney Injury,CKD(stage I-IV),Diabetes,Hypertension Other Pertinent Diagnosis Septic shock, debility, hypothermia, COVID-19 (-) Current Diet Nepro at 40 ml/hr (goal rate) Labs/Tests K 3.5 BUN 47 Cr 3.3 Mg 1.6 BG 171 Pertinent Medications KCl 40 mEq Mg 2 gm Solu-medrol Humalog Lantus Vancomycin Height 5 ft 11 in Weight 117 kg [place] Body Weight (kg) 78.18 BMI 35.9 Weight change and time frame Wt change noted. Pt had HD yesterday, removed 2 liters. Total fluid from flush and TF 1718ml/day. Weight Status Obese Subjective/Other Information F/u TF, K, Pt tolerating tube feed at goal rate. Diarrhea continues, pt tested positive for C.diff. May need to increase protein depending on ALEJANDRO and WOC assessment. Will monitor. Percent of energy/protein needs met: 95%/100% Burn Absent Trauma Absent GI Symptoms Diarrhea Skin Integrity/Comment dry, flaky skin, WOC consulted Current % PO Negligible Minimum of two criteria No Fluid Accumulation Moderate to Severe (severe) #1 Nutrition Diagnosis Inadequate oral intake Diagnosis Progress(for reassessment Continues documentation) Is patient on ventilator? No Is Patient Ambulatory and/or Out of Bed No REE-([place]-confined to bed) 2282.928 Kcal/Kg value to use for calculation 16 Approximate Energy Requirements Using 1872 kcal/Kg Calculation Used for Recommendations Kcal/kg Additional Notes Protein: 80-120g/kg (0.8-1.2g/ kg using AdjBW 100kg) Fluid: 1ml/kcal or per MD Nutrition Intervention Change Diet Order: Continue TF Nutrition Support: Nepro 1.8 at 40ml/hr Flush 170ml q4h Kcal 1,728 Protein (gm) 78 Fluid (mL) 698 Goal #1 Meet at least 80% of energy and protein needs via TF Anticipated Discharge Needs: unable to determine at this time Follow-Up By: 03/24/20 Additional Comments F/u stable TF and WOC assessment
--- NOTE | 2020-03-24 12:52 | Progress Note ---
Assessment and Plan Cultures: Blood cultures 03/16/2020 no growth today Assessment: 79 years old male with history of hypertension, diabetes mellitus, chronic kidney disease, previous CVA, chronic leg lymphedema, correction res ident, known to our service due to previous ESBL E. coli bacteremia from UTI on 03/02/2020, admitted on due to 24 hours history of generalized weakness and confusion associated with subjective fever: #Severe sepsis with septic shock: Shock resolved, remains with leukocytosis likely due to IV steroids. Source likely severe Cdiff #Severe C diff colitis: was on ertapenem for 2 weeks #Recent ESBL E. coli bacteremia patient was discharged on ertapenem 1 g IV daily for 14 days end date supposed to be 03/20/2020 #Acute encephalopathy: Likely secondary to sepsis/uremia #Acute on chronic kidney failure #Bilateral leg lymphedema with chronic skin changes #Exfoliative rash: ? Drug allergy, seems improving Recommendations: -Continue vancomycin 250 mg PO 4 times daily total 14 days -day 5 of 14 -Taper down IV steroids -Stop metronidazole -remove femoral vas cath and old central line (patient has a midline, a PICC line and a femoral vas cath) Dr. Soria rounding this weekend Will follow. Ivette Zamudio MD Infectious Diseases [employer] [facility] ([facility]) M [phone] O [phone] Subjective Date of service: 03/24/20 Principal diagnosis: Acute hypoxemic respiratory failure; Septic shock; Ac. encephalopathy; ALEJANDRO Interval history: Patient feels better, no complaints, no fever Objective - Exam Narrative Exam: General appearance: Alert in no acute distress Eyes: anicteric sclerae, moist conjunctivae; no lid-lag; PERRLA lid edema HENT: Normocephalic, Atraumatic; normal external ears, nares open, oropharynx limited Neck: supple, tracheal midline, no JVD Lungs: Diminished breath sounds bilaterally CV: RRR no murmur Abdomen: Soft, non-tender Extremities: Extensive bilateral leg edema, chronic skin changes Skin: Extensive skin desquamation Psych: Alert Neuro: Alert Rectal tube with diarrhea Midline PICC line Femoral vas cath - Constitutional Vitals: Vital Signs Temp Pulse Resp BP Pulse Ox 97.6 F 66 20 150/73 92 03/24/20 12:43 03/24/20 12:43 03/24/20 10:00 03/24/20 12:43 03/24/20 12:43 Temperature -Last 24 Hours Temperature 97.6 F Temperature 97.6 F Temperature 97.6 F Temperature 97.4 F Temperature 97.9 F - Labs CBC & Chem 7: 03/24/20 05:19 03/24/20 05:19 Labs: Abnormal lab results 03/23/20 03/23/20 03/23/20 Range/Units 11:56 17:07 17:34 WBC (4.5-11.0) K/mm3 RBC (3.65-5.03) M/mm3 Hgb (11.8-15.2) gm/dl Hct (35.5-45.6) % RDW (13.2-15.2) % Plt Count (140-440) K/mm3 Lymph % (Auto) (13.4-35.0) % Lymph # (Auto) (1.2-5.4) K/mm3 [place] # (Auto) (0.0-0.8) K/mm3 Seg Neutrophils # (1.8-7.7) K/mm3 APTT 74.5 H* (24.2-36.6) Sec. Sodium (137-145) mmol/L Potassium (3.6-5.0) mmol/L BUN (9-20) mg/dL Creatinine (0.8-1.3) mg/dL Glucose (75-100) mg/dL POC Glucose 159 H 217 H (70-105) mg/dL Calcium (8.4-10.2) mg/dL Phosphorus (2.5-4.5) mg/dL 03/23/20 03/23/20 03/24/20 Range/Units 21:45 22:24 01:13 WBC (4.5-11.0) K/mm3 RBC (3.65-5.03) M/mm3 Hgb (11.8-15.2) gm/dl Hct (35.5-45.6) % RDW (13.2-15.2) % Plt Count (140-440) K/mm3 Lymph % (Auto) (13.4-35.0) % Lymph # (Auto) (1.2-5.4) K/mm3 [place] # (Auto) (0.0-0.8) K/mm3 Seg Neutrophils # (1.8-7.7) K/mm3 APTT 112.5 H* (24.2-36.6) Sec. Sodium (137-145) mmol/L Potassium (3.6-5.0) mmol/L BUN (9-20) mg/dL Creatinine (0.8-1.3) mg/dL Glucose (75-100) mg/dL POC Glucose 160 H 186 H (70-105) mg/dL Calcium (8.4-10.2) mg/dL Phosphorus (2.5-4.5) mg/dL 03/24/20 03/24/20 03/24/20 Range/Units 05:19 05:19 05:19 WBC 28.6 H (4.5-11.0) K/mm3 RBC 3.57 L (3.65-5.03) M/mm3 Hgb 10.7 L (11.8-15.2) gm/dl Hct 33.3 L (35.5-45.6) % RDW 18.4 H (13.2-15.2) % Plt Count 94 L (140-440) K/mm3 Lymph % (Auto) 4.0 L (13.4-35.0) % Lymph # (Auto) 1.1 L (1.2-5.4) K/mm3 [place] # (Auto) 0.9 H (0.0-0.8) K/mm3 Seg Neutrophils # 26.4 H (1.8-7.7) K/mm3 APTT 91.5 H* (24.2-36.6) Sec. Sodium 146 H (137-145) mmol/L Potassium 3.5 L (3.6-5.0) mmol/L BUN 71 H (9-20) mg/dL Creatinine 3.9 H (0.8-1.3) mg/dL Glucose 141 H (75-100) mg/dL POC Glucose (70-105) mg/dL Calcium 8.3 L (8.4-10.2) mg/dL Phosphorus 5.80 H (2.5-4.5) mg/dL 03/24/20 Range/Units 06:35 WBC (4.5-11.0) K/mm3 RBC (3.65-5.03) M/mm3 Hgb (11.8-15.2) gm/dl Hct (35.5-45.6) % RDW (13.2-15.2) % Plt Count (140-440) K/mm3 Lymph % (Auto) (13.4-35.0) % Lymph # (Auto) (1.2-5.4) K/mm3 [place] # (Auto) (0.0-0.8) K/mm3 Seg Neutrophils # (1.8-7.7) K/mm3 APTT (24.2-36.6) Sec. Sodium (137-145) mmol/L Potassium (3.6-5.0) mmol/L BUN (9-20) mg/dL Creatinine (0.8-1.3) mg/dL Glucose (75-100) mg/dL POC Glucose 153 H (70-105) mg/dL Calcium (8.4-10.2) mg/dL Phosphorus (2.5-4.5) mg/dL
--- NOTE | 2020-03-24 15:19 | Progress Note ---
Assessment and Plan Acute hypoxemic respiratory failure Septic shock Pulmonary HTN Acute Toxic metabolic encephalopathy Acute kidney injury (ALEJANDRO) with acute tubular necrosis (ATN) PUI COVID-19 Sacral decubitus ulcer h/o VTE Hypothermia Obesity Adult FTT (I strongly counseled BIPAP compliance and explained how the machine had essentially kept him alive during this hospitalization) - wean supplemental oxygen for target O2 sat's > 90% acutely - prn CXR' & ABG's - continue BIPAP scheduled qhs with prn daytime use - continue HD/UF per nephrology for toxin and volume clearance - continue care as below otherwise; - 2D ECHO shows pulm HTN with septal flattening (outpatient w/up) - EDUCATIONAL PROGRAM ASSISTANT evaluation ongoing - continue aspiration precautions (HOB >/= 40 degrees) - conservative fluid strategies henceforth - complete antiinfective's per ID rec's (IV vanc stopped) - accuchecks with glycemic control per SSI for target blood glucose of < 180 mg/dL; avoid hypoglycemia - bronchodilators with pulmonary hygiene per RT - avoid nephrotoxins, renally dose all medications - avoid benzodiazepine's, reduce the possibility of delirium - prn analgesia per pain score - Maintenance of sleep-wake cycle, avoid delirium - G.I. & VTE prophylaxis - PT/OT/ROM exercises - continue mobility protocols for pressure ulcer prophylaxis - Monitor hemodynamics closely - continue other care per attending / other consultants - discharge planning ongoing concurrently .... Re-evaluate in am & prn CONDITION: FAIR PROGNOSIS: GUARDED CODE STATUS: FULL CODE Subjective Date of service: 03/24/20 Principal diagnosis: Acute hypoxemic respiratory failure; Septic shock; Ac. encephalopathy; ALEJANDRO Interval history: Patient is seen today for: Acute hypoxemic respiratory failure; Septic shock; Acute Toxic metabolic encephalopathy; ALEJANDRO; PUI COVID-19; Sacral decubitus ulcer; h/o VTE; Hypothermia; Obesity; Adult FTT Seen and examined at bedside; 24hour events reviewed; nursing and respiratory care staff consulted; no adverse overnight events reported to me; resting peacefully in bed; Dialysis ongoing with UF goal of approx 1 liter; he states that he took his BIPAP mask off overnight; "i don't need that thing" Objective Vital Signs - 12hr 03/24/20 03/24/20 03/24/20 03:49 09:33 10:00 Temperature 97.6 F 97.6 F Pulse Rate 78 60 Pulse Rate [ 69 Apical] Respiratory 22 22 20 Rate Blood Pressure 138/76 Blood Pressure 129/67 [Right] O2 Sat by Pulse 92 100 Oximetry 03/24/20 12:43 Temperature 97.6 F Pulse Rate 66 Pulse Rate [ Apical] Respiratory Rate Blood Pressure Blood Pressure 150/73 [Right] O2 Sat by Pulse 92 Oximetry Constitutional: appears uncomfortable, other (elderly obese male with increased respiratory effort at rest) Eyes: non-icteric ENT: oropharynx dry Neck: supple, no JVD, other (large neck circumference) Effort: mildly labored Ascultation: Bilateral: diminished breath sounds, rhonchi Percussion: Bilateral: not dull Cardiovascular: other (S1,S2, Tachycardia, hypotension on Vasopressor) Gastrointestinal: normoactive bowel sounds, soft, non-tender, non-distended (protuberant) Integumentary: rash (Generalized skin flaking/with superficial skin sloughing without erythema or warmth on chest wall), decubitus ulcer (see RN/WCN notes for details) Extremities: pulses normal, cool, other (LUExt midline, RUext PICC line) Neurologic: non-focal exam (grossly), pupils equal and round, CN II-XII normal Psychiatric: other (flat affect to depressed at times) CBC and BMP: 03/24/20 05:19 03/24/20 05:19 ABG, PT/INR, D-dimer: ABG ABG pH 7.378 pH Units (7.350-7.450) 03/20/20 16:35 POC ABG pCO2 37.3 mmHg (32.0-48.0) 03/18/20 12:14 ABG pCO2 38.6 mm Hg 03/20/20 16:35 POC ABG pO2 67.4 mmHg (83-108) L 03/18/20 12:14 ABG pO2 63.9 mm Hg (80.0-90.0) L 03/20/20 16:35 POC ABG HCO3 14.1 03/18/20 12:14 ABG O2 Saturation 90.9 % (95.0-99.0) L 03/20/20 16:35 PT/INR, D-dimer PT 14.3 Sec. (12.2-14.9) 03/22/20 16:30 INR 1.09 (0.87-1.13) 03/22/20 16:30 Abnormal lab findings: Abnormal Labs 03/16/20 03/16/20 03/16/20 14:22 14:22 14:23 WBC 32.2 H RBC 2.93 L Hgb 8.9 L Hct 28.2 L MCV 96 H MCHC RDW 18.1 H Plt Count Lymph % (Auto) Lymph # (Auto) [place] # (Auto) Seg Neuts % (Manual) 82.0 H Lymphocytes % (Manual) 10.0 L Nucleated RBC % 3.0 H Seg Neutrophils # Seg Neutrophils # Man 26.4 H Lymphocytes # (Manual) Monocytes # (Manual) 1.9 H PT INR APTT ABG pH POC ABG pO2 ABG pO2 ABG HCO3 ABG O2 Saturation ABG Base Excess ABG Hemoglobin ABG Potassium ABG Chloride ABG Glucose Oxyhemoglobin Sodium Potassium 3.3 L Chloride 108.9 H Carbon Dioxide 12 L BUN 59 H Creatinine 5.9 H Glucose 142 H POC Glucose Calcium 7.7 L Phosphorus Magnesium Alkaline Phosphatase 224 H Total Creatine Kinase Troponin T 0.033 H Total Protein 5.4 L Albumin 1.9 L LDL Cholesterol Direct 35 L HDL Cholesterol 37 L Arterial Blood Glucose Arterial Blood Ionized Calcium Urine WBC (Auto) Urine Creatinine Urine Total Protein Crossmatch 03/16/20 03/16/20 03/16/20 14:27 19:50 21:15 WBC RBC Hgb Hct MCV MCHC RDW Plt Count Lymph % (Auto) Lymph # (Auto) [place] # (Auto) Seg Neuts % (Manual) Lymphocytes % (Manual) Nucleated RBC % Seg Neutrophils # Seg Neutrophils # Man Lymphocytes # (Manual) Monocytes # (Manual) PT 17.2 H INR 1.37 H APTT 51.3 H ABG pH POC ABG pO2 ABG pO2 ABG HCO3 ABG O2 Saturation ABG Base Excess ABG Hemoglobin ABG Potassium ABG Chloride ABG Glucose Oxyhemoglobin Sodium Potassium Chloride Carbon Dioxide BUN Creatinine Glucose POC Glucose Calcium Phosphorus Magnesium Alkaline Phosphatase Total Creatine Kinase Troponin T 0.031 H Total Protein Albumin LDL Cholesterol Direct HDL Cholesterol Arterial Blood Glucose Arterial Blood Ionized Calcium Urine WBC (Auto) > 182.0 H Urine Creatinine Urine Total Protein Crossmatch 03/16/20 03/17/20 03/17/20 22:25 11:13 11:13 WBC 34.4 H RBC 2.60 L Hgb 7.8 L Hct 25.2 L MCV 97 H MCHC 31 L RDW 18.7 H Plt Count Lymph % (Auto) Lymph # (Auto) [place] # (Auto) Seg Neuts % (Manual) 88.0 H Lymphocytes % (Manual) 1.0 L Nucleated RBC % 13.0 H Seg Neutrophils # Seg Neutrophils # Man 30.3 H Lymphocytes # (Manual) 0.3 L Monocytes # (Manual) PT INR APTT ABG pH POC ABG pO2 ABG pO2 ABG HCO3 ABG O2 Saturation ABG Base Excess ABG Hemoglobin ABG Potassium ABG Chloride ABG Glucose Oxyhemoglobin Sodium Potassium 3.3 L Chloride 108.5 H Carbon Dioxide 16 L BUN 57 H Creatinine 5.5 H Glucose 325 H POC Glucose Calcium 7.0 L Phosphorus Magnesium Alkaline Phosphatase Total Creatine Kinase Troponin T 0.047 H D Total Protein Albumin LDL Cholesterol Direct HDL Cholesterol Arterial Blood Glucose Arterial Blood Ionized Calcium Urine WBC (Auto) Urine Creatinine Urine Total Protein Crossmatch 03/17/20 03/17/20 03/17/20 11:13 11:40 Unknown WBC RBC Hgb Hct MCV MCHC RDW Plt Count Lymph % (Auto) Lymph # (Auto) [place] # (Auto) Seg Neuts % (Manual) Lymphocytes % (Manual) Nucleated RBC % Seg Neutrophils # Seg Neutrophils # Man Lymphocytes # (Manual) Monocytes # (Manual) PT INR APTT ABG pH 7.229 L POC ABG pO2 ABG pO2 98.3 H ABG HCO3 14.6 L ABG O2 Saturation ABG Base Excess -12.0 L ABG Hemoglobin 8.9 L ABG Potassium ABG Chloride ABG Glucose Oxyhemoglobin Sodium Potassium Chloride Carbon Dioxide BUN Creatinine Glucose POC Glucose Calcium Phosphorus Magnesium Alkaline Phosphatase Total Creatine Kinase 373 H Troponin T Total Protein Albumin LDL Cholesterol Direct HDL Cholesterol Arterial Blood Glucose Arterial Blood Ionized Calcium Urine WBC (Auto) > 182.0 H Urine Creatinine Urine Total Protein Crossmatch 03/17/20 03/18/20 03/18/20 Unknown 04:40 04:40 WBC 32.0 H RBC 2.56 L Hgb 7.9 L Hct 24.7 L MCV 96 H MCHC RDW 18.2 H Plt Count Lymph % (Auto) Lymph # (Auto) [place] # (Auto) Seg Neuts % (Manual) Lymphocytes % (Manual) Nucleated RBC % Seg Neutrophils # Seg Neutrophils # Man Lymphocytes # (Manual) Monocytes # (Manual) PT INR APTT ABG pH POC ABG pO2 ABG pO2 ABG HCO3 ABG O2 Saturation ABG Base Excess ABG Hemoglobin ABG Potassium ABG Chloride ABG Glucose Oxyhemoglobin Sodium Potassium 2.7 L* Chloride 111.8 H Carbon Dioxide 12 L BUN 56 H Creatinine 4.6 H Glucose 347 H POC Glucose Calcium 6.7 L Phosphorus 5.40 H Magnesium Alkaline Phosphatase Total Creatine Kinase Troponin T Total Protein Albumin LDL Cholesterol Direct HDL Cholesterol Arterial Blood Glucose Arterial Blood Ionized Calcium Urine WBC (Auto) Urine Creatinine 139.3 H Urine Total Protein 328 H Crossmatch 03/18/20 03/18/20 03/18/20 04:40 04:48 12:14 WBC RBC Hgb Hct MCV MCHC RDW Plt Count Lymph % (Auto) Lymph # (Auto) [place] # (Auto) Seg Neuts % (Manual) Lymphocytes % (Manual) Nucleated RBC % Seg Neutrophils # Seg Neutrophils # Man Lymphocytes # (Manual) Monocytes # (Manual) PT INR APTT ABG pH 7.230 L 7.196 L POC ABG pO2 67.4 L ABG pO2 91.6 H ABG HCO3 13.7 L ABG O2 Saturation ABG Base Excess -12.8 L ABG Hemoglobin 9.2 L 9.9 L ABG Potassium 3.3 L ABG Chloride 112.0 H ABG Glucose 355 H Oxyhemoglobin 94.8 L Sodium Potassium Chloride Carbon Dioxide BUN Creatinine Glucose POC Glucose Calcium Phosphorus Magnesium 1.40 L Alkaline Phosphatase Total Creatine Kinase Troponin T Total Protein Albumin LDL Cholesterol Direct HDL Cholesterol Arterial Blood Glucose 355 H Arterial Blood Ionized Calcium 4.5 L Urine WBC (Auto) Urine Creatinine Urine Total Protein Crossmatch 03/18/20 03/18/20 03/18/20 13:17 13:32 19:15 WBC RBC Hgb Hct MCV MCHC RDW Plt Count Lymph % (Auto) Lymph # (Auto) [place] # (Auto) Seg Neuts % (Manual) Lymphocytes % (Manual) Nucleated RBC % Seg Neutrophils # Seg Neutrophils # Man Lymphocytes # (Manual) Monocytes # (Manual) PT INR APTT ABG pH POC ABG pO2 ABG pO2 ABG HCO3 ABG O2 Saturation ABG Base Excess ABG Hemoglobin ABG Potassium ABG Chloride ABG Glucose Oxyhemoglobin Sodium Potassium 3.0 L 3.4 L Chloride 107.2 H Carbon Dioxide 14 L 13 L BUN 59 H 67 H Creatinine 4.8 H 5.1 H Glucose 341 H 371 H POC Glucose 394 H Calcium 7.0 L 7.8 L Phosphorus Magnesium Alkaline Phosphatase Total Creatine Kinase Troponin T Total Protein Albumin LDL Cholesterol Direct HDL Cholesterol Arterial Blood Glucose Arterial Blood Ionized Calcium Urine WBC (Auto) Urine Creatinine Urine Total Protein Crossmatch 03/18/20 03/18/20 03/19/20 19:21 23:00 01:32 EST WBC RBC Hgb Hct MCV MCHC RDW Plt Count Lymph % (Auto) Lymph # (Auto) [place] # (Auto) Seg Neuts % (Manual) Lymphocytes % (Manual) Nucleated RBC % Seg Neutrophils # Seg Neutrophils # Man Lymphocytes # (Manual) Monocytes # (Manual) PT INR APTT ABG pH POC ABG pO2 ABG pO2 ABG HCO3 ABG O2 Saturation ABG Base Excess ABG Hemoglobin ABG Potassium ABG Chloride ABG Glucose Oxyhemoglobin Sodium Potassium Chloride Carbon Dioxide BUN Creatinine Glucose POC Glucose 453 H 360 H 338 H Calcium Phosphorus Magnesium Alkaline Phosphatase Total Creatine Kinase Troponin T Total Protein Albumin LDL Cholesterol Direct HDL Cholesterol Arterial Blood Glucose Arterial Blood Ionized Calcium Urine WBC (Auto) Urine Creatinine Urine Total Protein Crossmatch 03/19/20 03/19/20 03/19/20 04:10 05:10 05:10 WBC 25.8 H RBC 3.61 L Hgb 10.9 L D Hct MCV 100 H MCHC 30 L RDW 19.1 H Plt Count Lymph % (Auto) Lymph # (Auto) [place] # (Auto) Seg Neuts % (Manual) Lymphocytes % (Manual) Nucleated RBC % Seg Neutrophils # Seg Neutrophils # Man Lymphocytes # (Manual) Monocytes # (Manual) PT INR APTT ABG pH 7.309 L POC ABG pO2 ABG pO2 69.4 L ABG HCO3 17.9 L ABG O2 Saturation 92.4 L ABG Base Excess -7.6 L ABG Hemoglobin 8.1 L ABG Potassium ABG Chloride ABG Glucose Oxyhemoglobin 90.8 L Sodium Potassium Chloride Carbon Dioxide BUN Creatinine Glucose POC Glucose Calcium Phosphorus 5.60 H Magnesium Alkaline Phosphatase Total Creatine Kinase Troponin T Total Protein Albumin LDL Cholesterol Direct HDL Cholesterol Arterial Blood Glucose Arterial Blood Ionized Calcium Urine WBC (Auto) Urine Creatinine Urine Total Protein Crossmatch 03/19/20 03/19/20 03/19/20 10:00 11:22 Unknown WBC RBC Hgb Hct MCV MCHC RDW Plt Count Lymph % (Auto) Lymph # (Auto) [place] # (Auto) Seg Neuts % (Manual) Lymphocytes % (Manual) Nucleated RBC % Seg Neutrophils # Seg Neutrophils # Man Lymphocytes # (Manual) Monocytes # (Manual) PT 15.3 H INR 1.18 H APTT ABG pH POC ABG pO2 ABG pO2 ABG HCO3 ABG O2 Saturation ABG Base Excess ABG Hemoglobin ABG Potassium ABG Chloride ABG Glucose Oxyhemoglobin Sodium Potassium 3.0 L Chloride Carbon Dioxide BUN 69 H Creatinine 5.4 H Glucose 250 H POC Glucose 274 H Calcium 7.9 L Phosphorus Magnesium Alkaline Phosphatase Total Creatine Kinase Troponin T Total Protein Albumin LDL Cholesterol Direct HDL Cholesterol Arterial Blood Glucose Arterial Blood Ionized Calcium Urine WBC (Auto) Urine Creatinine Urine Total Protein Crossmatch 03/20/20 03/20/20 03/20/20 01:56 05:22 06:35 WBC 27.5 H RBC 2.57 L Hgb 7.9 L D Hct 23.3 L D MCV MCHC RDW 17.7 H Plt Count Lymph % (Auto) Lymph # (Auto) [place] # (Auto) Seg Neuts % (Manual) Lymphocytes % (Manual) Nucleated RBC % Seg Neutrophils # Seg Neutrophils # Man Lymphocytes # (Manual) Monocytes # (Manual) PT INR APTT ABG pH POC ABG pO2 ABG pO2 ABG HCO3 ABG O2 Saturation ABG Base Excess ABG Hemoglobin ABG Potassium ABG Chloride ABG Glucose Oxyhemoglobin Sodium Potassium Chloride Carbon Dioxide BUN Creatinine Glucose POC Glucose 145 H 181 H Calcium Phosphorus Magnesium Alkaline Phosphatase Total Creatine Kinase Troponin T Total Protein Albumin LDL Cholesterol Direct HDL Cholesterol Arterial Blood Glucose Arterial Blood Ionized Calcium Urine WBC (Auto) Urine Creatinine Urine Total Protein Crossmatch 03/20/20 03/20/20 03/20/20 06:35 12:10 13:30 WBC RBC Hgb Hct MCV MCHC RDW Plt Count Lymph % (Auto) Lymph # (Auto) [place] # (Auto) Seg Neuts % (Manual) Lymphocytes % (Manual) Nucleated RBC % Seg Neutrophils # Seg Neutrophils # Man Lymphocytes # (Manual) Monocytes # (Manual) PT INR APTT ABG pH POC ABG pO2 ABG pO2 ABG HCO3 ABG O2 Saturation ABG Base Excess ABG Hemoglobin ABG Potassium ABG Chloride ABG Glucose Oxyhemoglobin Sodium Potassium 2.9 L* Chloride Carbon Dioxide BUN 69 H Creatinine 5.1 H Glucose 146 H POC Glucose 164 H Calcium 8.2 L Phosphorus 5.40 H Magnesium Alkaline Phosphatase Total Creatine Kinase Troponin T Total Protein Albumin LDL Cholesterol Direct HDL Cholesterol Arterial Blood Glucose Arterial Blood Ionized Calcium Urine WBC (Auto) 153.0 H Urine Creatinine Urine Total Protein Crossmatch 03/20/20 03/20/20 03/20/20 16:00 16:35 17:23 WBC RBC Hgb Hct MCV MCHC RDW Plt Count Lymph % (Auto) Lymph # (Auto) [place] # (Auto) Seg Neuts % (Manual) Lymphocytes % (Manual) Nucleated RBC % Seg Neutrophils # Seg Neutrophils # Man Lymphocytes # (Manual) Monocytes # (Manual) PT INR APTT ABG pH POC ABG pO2 ABG pO2 63.9 L ABG HCO3 ABG O2 Saturation 90.9 L ABG Base Excess -2.6 L ABG Hemoglobin 9.5 L ABG Potassium ABG Chloride ABG Glucose Oxyhemoglobin 89.3 L Sodium 146 H Potassium 3.3 L Chloride Carbon Dioxide BUN 72 H Creatinine 5.1 H Glucose 150 H POC Glucose 191 H Calcium 8.2 L Phosphorus Magnesium Alkaline Phosphatase Total Creatine Kinase Troponin T Total Protein Albumin LDL Cholesterol Direct HDL Cholesterol Arterial Blood Glucose Arterial Blood Ionized Calcium Urine WBC (Auto) Urine Creatinine Urine Total Protein Crossmatch 03/21/20 03/21/20 03/21/20 00:48 03:55 03:55 WBC 22.4 H RBC 2.06 L Hgb 6.3 L Hct 19.2 L* MCV MCHC RDW 17.7 H Plt Count 86 L Lymph % (Auto) Lymph # (Auto) [place] # (Auto) Seg Neuts % (Manual) Lymphocytes % (Manual) Nucleated RBC % Seg Neutrophils # Seg Neutrophils # Man Lymphocytes # (Manual) Monocytes # (Manual) PT INR APTT ABG pH POC ABG pO2 ABG pO2 ABG HCO3 ABG O2 Saturation ABG Base Excess ABG Hemoglobin ABG Potassium ABG Chloride ABG Glucose Oxyhemoglobin Sodium 148 H Potassium 2.8 L* Chloride 108.2 H Carbon Dioxide BUN 52 H Creatinine 3.8 H Glucose 130 H POC Glucose 158 H Calcium 7.6 L Phosphorus Magnesium Alkaline Phosphatase Total Creatine Kinase Troponin T Total Protein Albumin LDL Cholesterol Direct HDL Cholesterol Arterial Blood Glucose Arterial Blood Ionized Calcium Urine WBC (Auto) Urine Creatinine Urine Total Protein Crossmatch 03/21/20 03/21/20 03/21/20 05:37 06:43 09:15 WBC RBC Hgb Hct MCV MCHC RDW Plt Count Lymph % (Auto) Lymph # (Auto) [place] # (Auto) Seg Neuts % (Manual) Lymphocytes % (Manual) Nucleated RBC % Seg Neutrophils # Seg Neutrophils # Man Lymphocytes # (Manual) Monocytes # (Manual) PT INR APTT ABG pH POC ABG pO2 ABG pO2 ABG HCO3 ABG O2 Saturation ABG Base Excess ABG Hemoglobin ABG Potassium ABG Chloride ABG Glucose Oxyhemoglobin Sodium Potassium 3.5 L D Chloride Carbon Dioxide BUN 56 H Creatinine 4.3 H Glucose 104 H POC Glucose 159 H Calcium Phosphorus Magnesium Alkaline Phosphatase Total Creatine Kinase Troponin T Total Protein Albumin LDL Cholesterol Direct HDL Cholesterol Arterial Blood Glucose Arterial Blood Ionized Calcium Urine WBC (Auto) Urine Creatinine Urine Total Protein Crossmatch See Detail 03/21/20 03/21/20 03/22/20 12:55 17:26 00:16 WBC RBC Hgb Hct MCV MCHC RDW Plt Count Lymph % (Auto) Lymph # (Auto) [place] # (Auto) Seg Neuts % (Manual) Lymphocytes % (Manual) Nucleated RBC % Seg Neutrophils # Seg Neutrophils # Man Lymphocytes # (Manual) Monocytes # (Manual) PT INR APTT ABG pH POC ABG pO2 ABG pO2 ABG HCO3 ABG O2 Saturation ABG Base Excess ABG Hemoglobin ABG Potassium ABG Chloride ABG Glucose Oxyhemoglobin Sodium Potassium Chloride Carbon Dioxide BUN Creatinine Glucose POC Glucose 157 H 128 H 148 H Calcium Phosphorus Magnesium Alkaline Phosphatase Total Creatine Kinase Troponin T Total Protein Albumin LDL Cholesterol Direct HDL Cholesterol Arterial Blood Glucose Arterial Blood Ionized Calcium Urine WBC (Auto) Urine Creatinine Urine Total Protein Crossmatch 03/22/20 03/22/20 03/22/20 04:00 04:43 05:00 WBC 26.2 H RBC 3.16 L Hgb 9.6 L D Hct 29.1 L D MCV MCHC RDW 18.2 H Plt Count 86 L Lymph % (Auto) Lymph # (Auto) [place] # (Auto) Seg Neuts % (Manual) Lymphocytes % (Manual) Nucleated RBC % Seg Neutrophils # Seg Neutrophils # Man Lymphocytes # (Manual) Monocytes # (Manual) PT INR APTT ABG pH POC ABG pO2 ABG pO2 ABG HCO3 ABG O2 Saturation ABG Base Excess ABG Hemoglobin ABG Potassium ABG Chloride ABG Glucose Oxyhemoglobin Sodium Potassium 3.5 L Chloride Carbon Dioxide BUN 47 H Creatinine 3.3 H Glucose 171 H POC Glucose Calcium 8.3 L Phosphorus Magnesium 1.60 L Alkaline Phosphatase Total Creatine Kinase Troponin T Total Protein Albumin LDL Cholesterol Direct HDL Cholesterol Arterial Blood Glucose Arterial Blood Ionized Calcium Urine WBC (Auto) Urine Creatinine Urine Total Protein Crossmatch 03/22/20 03/22/20 03/22/20 05:41 12:18 17:29 WBC RBC Hgb Hct MCV MCHC RDW Plt Count Lymph % (Auto) Lymph # (Auto) [place] # (Auto) Seg Neuts % (Manual) Lymphocytes % (Manual) Nucleated RBC % Seg Neutrophils # Seg Neutrophils # Man Lymphocytes # (Manual) Monocytes # (Manual) PT INR APTT ABG pH POC ABG pO2 ABG pO2 ABG HCO3 ABG O2 Saturation ABG Base Excess ABG Hemoglobin ABG Potassium ABG Chloride ABG Glucose Oxyhemoglobin Sodium Potassium Chloride Carbon Dioxide BUN Creatinine Glucose POC Glucose 183 H 129 H 184 H Calcium Phosphorus Magnesium Alkaline Phosphatase Total Creatine Kinase Troponin T Total Protein Albumin LDL Cholesterol Direct HDL Cholesterol Arterial Blood Glucose Arterial Blood Ionized Calcium Urine WBC (Auto) Urine Creatinine Urine Total Protein Crossmatch 03/22/20 03/23/20 03/23/20 19:13 00:22 06:09 WBC RBC Hgb Hct MCV MCHC RDW Plt Count Lymph % (Auto) Lymph # (Auto) [place] # (Auto) Seg Neuts % (Manual) Lymphocytes % (Manual) Nucleated RBC % Seg Neutrophils # Seg Neutrophils # Man Lymphocytes # (Manual) Monocytes # (Manual) PT INR APTT 91.0 H* ABG pH POC ABG pO2 ABG pO2 ABG HCO3 ABG O2 Saturation ABG Base Excess ABG Hemoglobin ABG Potassium ABG Chloride ABG Glucose Oxyhemoglobin Sodium Potassium Chloride Carbon Dioxide BUN Creatinine Glucose POC Glucose 159 H 166 H Calcium Phosphorus Magnesium Alkaline Phosphatase Total Creatine Kinase Troponin T Total Protein Albumin LDL Cholesterol Direct HDL Cholesterol Arterial Blood Glucose Arterial Blood Ionized Calcium Urine WBC (Auto) Urine Creatinine Urine Total Protein Crossmatch 03/23/20 03/23/20 03/23/20 09:35 09:35 09:35 WBC 26.9 H RBC 3.60 L Hgb 10.7 L Hct 32.7 L MCV MCHC RDW 18.9 H Plt Count 98 L Lymph % (Auto) Lymph # (Auto) [place] # (Auto) Seg Neuts % (Manual) 94.0 H Lymphocytes % (Manual) 2.0 L Nucleated RBC % 1.0 H Seg Neutrophils # Seg Neutrophils # Man 25.3 H Lymphocytes # (Manual) 0.5 L Monocytes # (Manual) PT INR APTT ABG pH POC ABG pO2 ABG pO2 ABG HCO3 ABG O2 Saturation ABG Base Excess ABG Hemoglobin ABG Potassium ABG Chloride ABG Glucose Oxyhemoglobin Sodium Potassium 3.5 L Chloride Carbon Dioxide BUN 61 H Creatinine 3.7 H Glucose 148 H POC Glucose Calcium Phosphorus 4.90 H D Magnesium Alkaline Phosphatase Total Creatine Kinase Troponin T Total Protein Albumin LDL Cholesterol Direct HDL Cholesterol Arterial Blood Glucose Arterial Blood Ionized Calcium Urine WBC (Auto) Urine Creatinine Urine Total Protein Crossmatch 03/23/20 03/23/20 03/23/20 09:35 11:56 17:07 WBC RBC Hgb Hct MCV MCHC RDW Plt Count Lymph % (Auto) Lymph # (Auto) [place] # (Auto) Seg Neuts % (Manual) Lymphocytes % (Manual) Nucleated RBC % Seg Neutrophils # Seg Neutrophils # Man Lymphocytes # (Manual) Monocytes # (Manual) PT INR APTT 115.2 H* 74.5 H* ABG pH POC ABG pO2 ABG pO2 ABG HCO3 ABG O2 Saturation ABG Base Excess ABG Hemoglobin ABG Potassium ABG Chloride ABG Glucose Oxyhemoglobin Sodium Potassium Chloride Carbon Dioxide BUN Creatinine Glucose POC Glucose 159 H Calcium Phosphorus Magnesium Alkaline Phosphatase Total Creatine Kinase Troponin T Total Protein Albumin LDL Cholesterol Direct HDL Cholesterol Arterial Blood Glucose Arterial Blood Ionized Calcium Urine WBC (Auto) Urine Creatinine Urine Total Protein Crossmatch 03/23/20 03/23/20 03/23/20 17:34 21:45 22:24 WBC RBC Hgb Hct MCV MCHC RDW Plt Count Lymph % (Auto) Lymph # (Auto) [place] # (Auto) Seg Neuts % (Manual) Lymphocytes % (Manual) Nucleated RBC % Seg Neutrophils # Seg Neutrophils # Man Lymphocytes # (Manual) Monocytes # (Manual) PT INR APTT 112.5 H* ABG pH POC ABG pO2 ABG pO2 ABG HCO3 ABG O2 Saturation ABG Base Excess ABG Hemoglobin ABG Potassium ABG Chloride ABG Glucose Oxyhemoglobin Sodium Potassium Chloride Carbon Dioxide BUN Creatinine Glucose POC Glucose 217 H 160 H Calcium Phosphorus Magnesium Alkaline Phosphatase Total Creatine Kinase Troponin T Total Protein Albumin LDL Cholesterol Direct HDL Cholesterol Arterial Blood Glucose Arterial Blood Ionized Calcium Urine WBC (Auto) Urine Creatinine Urine Total Protein Crossmatch 03/24/20 03/24/20 03/24/20 01:13 05:19 05:19 WBC 28.6 H RBC 3.57 L Hgb 10.7 L Hct 33.3 L MCV MCHC RDW 18.4 H Plt Count 94 L Lymph % (Auto) 4.0 L Lymph # (Auto) 1.1 L [place] # (Auto) 0.9 H Seg Neuts % (Manual) Lymphocytes % (Manual) Nucleated RBC % Seg Neutrophils # 26.4 H Seg Neutrophils # Man Lymphocytes # (Manual) Monocytes # (Manual) PT INR APTT ABG pH POC ABG pO2 ABG pO2 ABG HCO3 ABG O2 Saturation ABG Base Excess ABG Hemoglobin ABG Potassium ABG Chloride ABG Glucose Oxyhemoglobin Sodium 146 H Potassium 3.5 L Chloride Carbon Dioxide BUN 71 H Creatinine 3.9 H Glucose 141 H POC Glucose 186 H Calcium 8.3 L Phosphorus 5.80 H Magnesium Alkaline Phosphatase Total Creatine Kinase Troponin T Total Protein Albumin LDL Cholesterol Direct HDL Cholesterol Arterial Blood Glucose Arterial Blood Ionized Calcium Urine WBC (Auto) Urine Creatinine Urine Total Protein Crossmatch 03/24/20 03/24/20 05:19 06:35 WBC RBC Hgb Hct MCV MCHC RDW Plt Count Lymph % (Auto) Lymph # (Auto) [place] # (Auto) Seg Neuts % (Manual) Lymphocytes % (Manual) Nucleated RBC % Seg Neutrophils # Seg Neutrophils # Man Lymphocytes # (Manual) Monocytes # (Manual) PT INR APTT 91.5 H* ABG pH POC ABG pO2 ABG pO2 ABG HCO3 ABG O2 Saturation ABG Base Excess ABG Hemoglobin ABG Potassium ABG Chloride ABG Glucose Oxyhemoglobin Sodium Potassium Chloride Carbon Dioxide BUN Creatinine Glucose POC Glucose 153 H Calcium Phosphorus Magnesium Alkaline Phosphatase Total Creatine Kinase Troponin T Total Protein Albumin LDL Cholesterol Direct HDL Cholesterol Arterial Blood Glucose Arterial Blood Ionized Calcium Urine WBC (Auto) Urine Creatinine Urine Total Protein Crossmatch Chest x-ray: other (none today) Allied health notes reviewed: nursing
[2020-03-24] MEDS ORDERED: EPOETIN ALFA 10,000 UNIT/1 ML INJ IV SCH (17:00)
[2020-03-25] MEDS: INSULIN LISPRO 100 UNIT/ML VIAL 3 mL SUB-Q SCH ×4 (00:26→17:47)
[2020-03-25] MEDS: VANCOMYCIN 250 MG/10 ML ORAL LIQD PO SCH ×4 (00:26→17:47)
[2020-03-25] MEDS: INSULIN GLARGINE 100 UNITS/ML SUB-Q SCH (00:27)
[2020-03-25] MEDS: ARGATROBAN 250 MG in SODIUM CHLORIDE 0.9% 250ML 247.5 ML IV SCH (06:04)
[2020-03-25 06:54] LABS: Calcium 8.3 mg/dL (8.4-10.2)
[2020-03-25] MEDS: methylPREDNISolone Sod Succinate 40 MG/1 ML INJ IV SCH (10:24)
[2020-03-25] MEDS: FAMOTIDINE 20 MG/2 ML INJ IV SCH (10:24)
[2020-03-25] MEDS: MIDODRINE 5 MG TAB PO SCH ×3 (10:25→17:47)
--- NOTE | 2020-03-25 11:49 | Progress Note ---
Assessment and Plan Assessment and plan: Assessment and plan: Patient is a 79-year-old male with a past medical history of encephalopathy, hypertension, generalized weakness, diabetes type 2, chronic lipidemia, DVT, respiratory failure with hypoxia, CVA, and CKD presents from retirement with complaint of sepsis with hypotension, alteration mental status, and her labs collected yesterday that resulted today showing a WBC count of 36. Of note patient was recently discharged from the hospital with ertapenem 1 g IV daily ESBL E. coli bacteremia with started on March 11 with plan in date March 21 via PICC line Patient unfortunately continues to worsen despite antibiotic treatment is nonverbal not able to follow any commands and now experiencing multiorgan failure. senior living vital signs BP of 66/36, heart rate 62, respiratory rate 16, blood glucose 230, and patient presents on 3 L of nasal cannula oxygen satting 98% Patient had a negative Covid test during admission here March 02. 03/17 Patient also found to have acute kidney injury with acute tubular necrosis, toxic metabolic encephalopathy, metabolic acidosis and hypothermia. The patient is critically ill with a poor prognosis, sepsis protocol was initiated with an ICU admission. Patient was seen by launderette attendant pressors were increased with also bicarb drip started. Unfortunately bicarb drip had to be held due to PICC line compatibility. A new PICC line has been inserted this morning. Admitting physician did speak with the son and discussed prognosis. I did also call the son this morning who informs me that the brother who is physician is coming into town and will give us further recommendation on arrival. Patient has been started on a third pressor which is epinephrine at this time. To my examination awaiting nephrology evaluation. We will proceed with giving additional 2 L of fluids and also obtain a stat echocardiogram to see what patient's cardiac level is. Based on ejection fraction patient may benefit from dobutamine. Will place BiPAP on standby and if need be and family does not opposed to continued full code we will proceed with likely intubation so the patient can be adequately volume resuscitated. -Continue empiric antibiotic coverage. ID consultation. Critical care assistance and input noted. Fluid Resuscitation As Noted above Continue Diet. Change IV access for triple-lumen PICC line. Will follow cultures. We will also obtain wound care consultation. 03/18: Continue current management, may need dialysis but not a candidate for HD due to 3 Pressors. NO Diarrhea at this time. If not improving respiratory lopez may need Intubation. 03/19: Continue supportive care, mental status showing some improvement, still on BIPAP. BP improving will stop Epi and bring down to 2 pressors. Awaiting ECHO. IF continues to have worsening Renal function, May need transfer to [facility] if unable to perform HD. Patients son updated of current clinically status. 03/20: Right femoral catheter-vas cath Placed for HD. Hypokalemia to be corrected, will give Potassium 20meq. Continue IV abx, no growth so far noted, wean pressors as tolerated, may consider adding Midodrine. WBC trending down. Prior noted Ecoli Bactermia is not noted so far on the blood culture. Continue HD as tolerated, Sodium bicarb drip due to acidosis. 03/21. He has no complaints today. Patient continues to ask when he will be discharged. Labs showed persistent hypokalemia. Continue potassium replacement. Hemoglobin 6.0. Patient will get transfused 1 unit PRBC. 03/22. Hemoglobin stable today. Vascular surgery consulted for femoral line replacement 03/23. Patient seen in the BiPAP. Still has diarrhea and is on vancomycin. Afebrile overnight. Labs reviewed 03/24. Patient may need permacath placement on Friday. 24-hour urine collection ordered as per renal. Monitor rectal tube output closely. PT/OT 03/25. Patient seen and evaluated this morning. He has no complaints. Needs to have right femoral line removed permacath placed on Friday. Nephrology recommendations appreciated. 24-hour urine collection yet to commence as per RN . Steroids tapered off. Assessment and plan Septic shock This has resolved C. difficile infection Continue p.o. vancomycin 250 mg every 6 hours for 14 days ID recommendations appreciated Anemia OF Chronic Disease Monitor hemoglobin Transfused as needed to hemoglobin 7 Electrolyte abnormalities-hypokalemia, hypomagnesemia Replete as needed Acute renal failure likely due to ischemic ATN Now on hemodialysis. Nephrology recommendations appreciated Permacath placement on Friday pending urine test. Right femoral catheter to be removed Metabolic Acidosis Resolved. Discontinue sodium bicarb and monitor Acute hypoxic Respiratory failure. Continue oxygen supplementation Acute toxic metabolic encephalopathy Resolved Ruled out COVID-19 Hypothermia Resolved Thrombocytopenia Possibly from ongoing infection vs HIT Trend platelets HIT antibody pending Argatroban for now Leukocytosis Stress induced - steroids effect vs infection vs leukemia? 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 He feels well today. Hospitalist Physical - Physical exam Narrative exam: VITAL SIGNS: Reviewed. GENERAL: Awake HEAD: No signs of head trauma. EYES: Pupils are equal. MOUTH: Oropharynx is normal otherwise dry. NECK: No adenopathy, no JVD. CHEST: Chest with diminished breath sounds bilaterally. No wheezes, rales, or rhonchi. CARDIAC: Regular rate and rhythm. S1 and S2, without murmurs, gallops, or rubs. VASCULAR: chronic Edema. Peripheral pulses normal and equal in all extremities. ABDOMEN: Soft, non tender and non distended. No rebound or guarding, and no masses palpated. Bowel Sounds normal. MUSCULOSKELETAL: Chronic venous changes bilateral lower ext NEUROLOGIC EXAM: Awake and alert SKIN: Multiple excoriations multiple pressure ulcers, detail exam as documented in skin assessment - Constitutional Vitals: Temp Pulse Resp BP Pulse Ox 98.4 F 76 18 121/55 99 03/25/20 08:55 03/25/20 08:55 03/25/20 08:55 03/25/20 08:55 03/25/20 09:46 HEART Score - HEART Score Troponin: Troponin T 0.047 ng/mL (0.00-0.029) H D 03/16/20 22:25 Results - Labs CBC & Chem 7: 03/24/20 05:19 03/25/20 06:25 Labs: Laboratory Last Values WBC 28.6 K/mm3 (4.5-11.0) H 03/24/20 05:19 RBC 3.57 M/mm3 (3.65-5.03) L 03/24/20 05:19 Hgb 10.7 gm/dl (11.8-15.2) L 03/24/20 05:19 Hct 33.3 % (35.5-45.6) L 03/24/20 05:19 MCV 93 fl (84-94) 03/24/20 05:19 MCH 30 pg (28-32) 03/24/20 05:19 MCHC 32 % (32-34) 03/24/20 05:19 RDW 18.4 % (13.2-15.2) H 03/24/20 05:19 Plt Count 94 K/mm3 (140-440) L 03/24/20 05:19 Lymph % (Auto) 4.0 % (13.4-35.0) L 03/24/20 05:19 [place] % (Auto) 3.2 % (0.0-7.3) 03/24/20 05:19 Eos % (Auto) 0.1 % (0.0-4.3) 03/24/20 05:19 Baso % (Auto) 0.3 % (0.0-1.8) 03/24/20 05:19 Lymph # (Auto) 1.1 K/mm3 (1.2-5.4) L 03/24/20 05:19 [place]bour # (Auto) 0.9 K/mm3 (0.0-0.8) H 03/24/20 05:19 Eos # (Auto) 0.0 K/mm3 (0.0-0.4) 03/24/20 05:19 Baso # (Auto) 0.1 K/mm3 (0.0-0.1) 03/24/20 05:19 Add Manual Diff Complete 03/23/20 09:35 Total Counted 100 03/23/20 09:35 Seg Neutrophils % Office Worker 03/24/20 05:19 Seg Neuts % (Manual) 94.0 % (40.0-70.0) H 03/23/20 09:35 Band Neutrophils % 3.0 % 03/23/20 09:35 Lymphocytes % (Manual) 2.0 % (13.4-35.0) L 03/23/20 09:35 Reactive Lymphs % (Man) 0 % 03/23/20 09:35 Monocytes % (Manual) 1.0 % (0.0-7.3) 03/23/20 09:35 Eosinophils % (Manual) 0 % (0.0-4.3) 03/23/20 09:35 Basophils % (Manual) 0 % (0.0-1.8) 03/23/20 09:35 Metamyelocytes % 0 % 03/23/20 09:35 Myelocytes % 0 % 03/23/20 09:35 Promyelocytes % 0 % 03/23/20 09:35 Blast Cells % 0 % 03/23/20 09:35 Nucleated RBC % 1.0 % (0.0-0.9) H 03/23/20 09:35 Seg Neutrophils # 26.4 K/mm3 (1.8-7.7) H 03/24/20 05:19 Seg Neutrophils # Man 25.3 K/mm3 (1.8-7.7) H 03/23/20 09:35 Band Neutrophils # 0.8 K/mm3 03/23/20 09:35 Lymphocytes # (Manual) 0.5 K/mm3 (1.2-5.4) L 03/23/20 09:35 Abs React Lymphs (Man) 0.0 K/mm3 03/23/20 09:35 Monocytes # (Manual) 0.3 K/mm3 (0.0-0.8) 03/23/20 09:35 Eosinophils # (Manual) 0.0 K/mm3 (0.0-0.4) 03/23/20 09:35 Basophils # (Manual) 0.0 K/mm3 (0.0-0.1) 03/23/20 09:35 Metamyelocytes # 0.0 K/mm3 03/23/20 09:35 Myelocytes # 0.0 K/mm3 03/23/20 09:35 Promyelocytes # 0.0 K/mm3 03/23/20 09:35 Blast Cells # 0.0 K/mm3 03/23/20 09:35 Pathologist Review 03/16/20 14:22 WBC Morphology Not Reportable 03/23/20 09:35 Hypersegmented Neuts Not Reportable 03/23/20 09:35 Hyposegmented Neuts Not Reportable 03/23/20 09:35 Hypogranular Neuts Not Reportable 03/23/20 09:35 Smudge Cells Not Reportable 03/23/20 09:35 Toxic Granulation Not Reportable 03/23/20 09:35 Toxic Vacuolation Not Reportable 03/23/20 09:35 Dohle Bodies Not Reportable 03/23/20 09:35 Pelger-Huet Anomaly Not Reportable 03/23/20 09:35 Santiago Rods Not Reportable 03/23/20 09:35 Platelet Estimate Consistent w auto 03/23/20 09:35 Clumped Platelets Not Reportable 03/23/20 09:35 Plt Clumps, EDTA Not Reportable 03/23/20 09:35 Large Platelets Not Reportable 03/23/20 09:35 Giant Platelets Not Reportable 03/23/20 09:35 Platelet Satelliting Not Reportable 03/23/20 09:35 Plt Morphology Comment Not Reportable 03/23/20 09:35 RBC Morphology Not Reportable 03/23/20 09:35 Dimorphic RBCs Not Reportable 03/23/20 09:35 Polychromasia Few 03/23/20 09:35 Hypochromasia 1+ 03/23/20 09:35 Poikilocytosis Few 03/23/20 09:35 Anisocytosis 1+ 03/23/20 09:35 Microcytosis Not Reportable 03/23/20 09:35 Macrocytosis Not Reportable 03/23/20 09:35 Spherocytes Not Reportable 03/23/20 09:35 Pappenheimer Bodies Not Reportable 03/23/20 09:35 Sickle Cells Not Reportable 03/23/20 09:35 Target Cells Not Reportable 03/23/20 09:35 Tear Drop Cells Not Reportable 03/23/20 09:35 Ovalocytes Not Reportable 03/23/20 09:35 Helmet Cells Not Reportable 03/23/20 09:35 [place] Bodies Not Reportable 03/23/20 09:35 [place] Rings Not Reportable 03/23/20 09:35 Luis Alfredo Cells Few 03/23/20 09:35 Bite Cells Not Reportable 03/23/20 09:35 Crenated Cell Not Reportable 03/23/20 09:35 Elliptocytes Not Reportable 03/23/20 09:35 Acanthocytes (Spur) Not Reportable 03/23/20 09:35 Rouleaux Not Reportable 03/23/20 09:35 Hemoglobin C Crystals Not Reportable 03/23/20 09:35 Schistocytes Not Reportable 03/23/20 09:35 Malaria parasites Not Reportable 03/23/20 09:35 Isauro Bodies Not Reportable 03/23/20 09:35 Hem Pathologist Commnt No 03/23/20 09:35 PT 14.3 Sec. (12.2-14.9) 03/22/20 16:30 INR 1.09 (0.87-1.13) 03/22/20 16:30 APTT 75.3 Sec. (24.2-36.6) H* 03/24/20 19:50 ABG pH 7.378 pH Units (7.350-7.450) 03/20/20 16:35 POC ABG pCO2 37.3 mmHg (32.0-48.0) 03/18/20 12:14 ABG pCO2 38.6 mm Hg 03/20/20 16:35 POC ABG pO2 67.4 mmHg (83-108) L 03/18/20 12:14 ABG pO2 63.9 mm Hg (80.0-90.0) L 03/20/20 16:35 POC ABG HCO3 14.1 03/18/20 12:14 ABG HCO3 22.2 mmol/L (20.0-26.0) 03/20/20 16:35 ABG O2 Saturation 90.9 % (95.0-99.0) L 03/20/20 16:35 ABG O2 Content 12.0 (0.0-44) 03/20/20 16:35 POC ABG Base Excess -13.0 03/18/20 12:14 ABG Base Excess -2.6 mmol/L (-2.0-3.0) L 03/20/20 16:35 ABG Hemoglobin 9.5 gm/dl (14.0-18.0) L 03/20/20 16:35 ABG Carboxyhemoglobin 1.3 % (0.0-5.0) 03/20/20 16:35 ABG Methemoglobin 0.5 % (0.0-1.5) 03/20/20 16:35 ABG Sodium 138.8 mmol/L (136.0-145.0) 03/18/20 12:14 ABG Potassium 3.3 mmol/L (3.40-4.50) L 03/18/20 12:14 ABG Chloride 112.0 mmol/L (98-107) H 03/18/20 12:14 ABG Glucose 355 mg/dL (65-95) H 03/18/20 12:14 Oxyhemoglobin 89.3 % (95.0-99.0) L 03/20/20 16:35 FiO2 35 % 03/20/20 16:35 Sodium 139 mmol/L (137-145) 03/25/20 06:25 Potassium 3.8 mmol/L (3.6-5.0) 03/25/20 06:25 Chloride 103.4 mmol/L (98-107) 03/25/20 06:25 Carbon Dioxide 25 mmol/L (22-30) 03/25/20 06:25 Anion Gap 14 mmol/L 03/25/20 06:25 BUN 54 mg/dL (9-20) H 03/25/20 06:25 Creatinine 3.1 mg/dL (0.8-1.3) H 03/25/20 06:25 Estimated GFR 24 ml/min 03/25/20 06:25 BUN/Creatinine Ratio 17 % 03/25/20 06:25 Glucose 112 mg/dL (75-100) H 03/25/20 06:25 POC Glucose 139 mg/dL (70-105) H 03/25/20 05:11 Lactic Acid 1.80 mmol/L (0.7-2.0) 03/16/20 Unknown Calcium 8.3 mg/dL (8.4-10.2) L 03/25/20 06:25 Phosphorus 4.90 mg/dL (2.5-4.5) H 03/25/20 06:25 Magnesium 1.80 mg/dL (1.7-2.3) 03/24/20 05:19 Total Bilirubin 0.20 mg/dL (0.1-1.2) 03/16/20 14:22 AST 22 units/L (5-40) 03/16/20 14:22 ALT 8 units/L (7-56) 03/16/20 14:22 Alkaline Phosphatase 224 units/L (35-129) H 03/16/20 14:22 Total Creatine Kinase 373 units/L (55-170) H 03/17/20 11:13 Troponin T 0.047 ng/mL (0.00-0.029) H D 03/16/20 22:25 Total Protein 5.4 g/dL (6.3-8.2) L 03/16/20 14:22 Albumin 1.9 g/dL (3.9-5) L 03/16/20 14:22 Albumin/Globulin Ratio 0.5 % 03/16/20 14:22 Triglycerides 107 mg/dL (2-149) 03/16/20 14:23 Cholesterol 95 mg/dL (50-199) 03/16/20 14:23 LDL Cholesterol Direct 35 mg/dL (50-130) L 03/16/20 14:23 HDL Cholesterol 37 mg/dL (40-59) L 03/16/20 14:23 Cholesterol/HDL Ratio 2.56 % 03/16/20 14:23 Procalcitonin 9.59 ng/mL (<0.15) 03/17/20 18:53 Arterial Blood Glucose 355 mg/dL (65-95) H 03/18/20 12:14 Arterial Blood Ionized Calcium 4.5 mg/dL (4.6-5.3) L 03/18/20 12:14 Urine Color Yellow (Yellow) 03/20/20 13:30 Urine Turbidity Turbid (Clear) 03/20/20 13:30 Urine pH 5.0 (5.0-7.0) 03/20/20 13:30 Ur Specific Hazel 1.011 (1.003-1.030) 03/20/20 13:30 Urine Protein 100 mg/dl mg/dL (Negative) 03/20/20 13:30 Urine Glucose (UA) Neg mg/dL (Negative) 03/20/20 13:30 Urine Ketones Neg mg/dL (Negative) 03/20/20 13:30 Urine Blood Mod (Negative) 03/20/20 13:30 Urine Nitrite Neg (Negative) 03/20/20 13:30 Urine Bilirubin Neg (Negative) 03/20/20 13:30 Urine Urobilinogen < 2.0 mg/dL (<2.0) 03/20/20 13:30 Ur Leukocyte Esterase Mod (Negative) 03/20/20 13:30 Urine WBC (Auto) 153.0 /HPF (0.0-6.0) H 03/20/20 13:30 Urine RBC (Auto) 130.0 /HPF (0.0-6.0) 03/20/20 13:30 U Epithel Cells (Auto) 1.0 /HPF (0-13.0) 03/20/20 13:30 Urine Bacteria (Auto) 2+ /HPF (Negative) 03/20/20 13:30 Urine WBC Clumps 3+ /HPF 03/17/20 11:40 Urine Mucus Few /HPF 03/20/20 13:30 Urine Yeast (Budding) 3+ /HPF 03/20/20 13:30 Urine Creatinine 139.3 mg/dL (0.1-20.0) H 03/17/20 Unknown Protein/Creatinin Ratio 2.35 03/17/20 Unknown Urine Sodium 53 mmol/L 03/17/20 Unknown Urine Total Protein 328 mg/dL (5-11.8) H 03/17/20 Unknown Random Vancomycin 8.4 ug/mL (0-40.0) 03/18/20 04:40 C. difficile Tox (PCR) Positive (Negative) 03/19/20 23:59 Coronavirus (PCR) Negative (Negative) 03/17/20 09:03 Hepatitis A IgM Ab Non-reactive (NonReactive) 03/20/20 16:00 Hep Bs Antigen Non-reactive (Negative) 03/20/20 16:00 Hep B Core IgM Ab Non-reactive (NonReactive) 03/20/20 16:00 Hepatitis C Antibody Non-reactive (NonReactive) 03/20/20 16:00 Blood Type O POSITIVE 03/21/20 06:43 Antibody Screen Negative 03/21/20 06:43 Crossmatch See Detail 03/21/20 06:43 Microbiology: Microbiology 03/19/20 12:00 Stool Stool Culture - Final Amanda Albicans - Diagnostic Impressions Diagnostic Impressions: Echocardiogram 03/17/20 09:13 Transthoracic Echocardiogram Indication: Cardiogenic Shock BP: 126/62 Conclusions *Global left ventricular systolic function is normal. *Mild to moderate concentric left ventricular hypertrophy is observed. *The estimated ejection fraction is 55-60%. *The right ventricle is severely dilated. *The right ventricular global systolic function is moderately reduced. *Flattened in systole consistent with right ventricular pressure overload. *There is moderate aortic stenosis. *The mean gradient of the aortic valve is 20.93 mmHg. *Moderate aortic leaflet calcification is visualized. *There is mild aortic regurgitation. *There is mild mitral regurgitation. *There is mild tricuspid regurgitation. *The right ventricular systolic pressure is calculated at 46 mmHg. *There is trace pulmonic regurgitation. *A left pleural effusion is present. *There is no pericardial effusion. Findings Procedure Info: The study quality is good. Left Ventricle: The left ventricular chamber size is normal. Mild to moderate concentric left ventricular hypertrophy is observed. Global left ventricular systolic function is normal. The estimated ejection fraction is 55-60%. Abnormal left ventricular diastolic filling is observed, consistent with impaired relaxation. Left Atrium: The left atrium is normal in size with no visual thrombus identified. Right Ventricle: The right ventricle is severely dilated. The right ventricular global systolic function is moderately reduced. Flattened in systole consistent with right ventricular pressure overload. Right Atrium: The right atrium is moderately dilated. Aortic Valve: The aortic valve is trileaflet. Moderate aortic leaflet calcification is visualized. There is mild aortic regurgitation. There is moderate aortic stenosis. The mean gradient of the aortic valve is 20.93 mmHg. The peak instantaneous gradient of the aortic valve is 48.15 mmHg. The aortic valve area, by VTI's, is calculated at 1.044935870172 cm2. Mitral Valve: There is posterior mitral annular calcification. The mitral valve leaflets are mildly thickened. There is mild mitral regurgitation. There is no evidence of mitral stenosis. Tricuspid Valve: There is mild tricuspid regurgitation. The right ventricular systolic pressure is calculated at 46 mmHg. There is no tricuspid stenosis. Pulmonic Valve: The pulmonic valve appears normal. There is trace pulmonic regurgitation. There is no pulmonic stenosis. Pericardium: There is no pericardial effusion. A left pleural effusion is present. Aorta: The aorta appears normal. Pulmonary Artery: The main pulmonary artery appears normal. Venous: The inferior vena cava is dilated. There is less than 50% respiratory change in the inferior vena cava dimension. Measurements Chambers 2D Name Value Normal Range IVSd (2D) 1.24 cm (0.6 - 1.1) LVPWd (2D) 1.28 cm (0.6 - 1.1) LVIDd (2D) 4.39 cm (3.7 - 5.6) LVIDs (2D) 2.74 cm (2 - 3.8) LV FS (2D) 37.56 % - EF Teichholz (2D) 67.84 % - Ao root diameter (2D) 3.09 cm (2 - 3.7) Volumes/Mass Name Value Normal Range LA ESV SP 4CH (A/L) 61.48 ml - LA ESV SP 2CH (A/L) 74.82 ml - LA ESV BP (A/L) 70.19 ml - LA ESV BP (A/L) index 29.49 ml/m2 - LA ESV SP 4CH (MOD) 60.86 ml - LA ESV SP 2CH (MOD) 76.42 ml - LA ESV BP (MOD) 70.33 ml - LA ESV BP (MOD) index 29.55 ml/m2 - LV EDV SP 4CH (MOD) 54.09 ml - LV ESV SP 4CH (MOD) 19.25 ml - EF SP 4CH (MOD) 64.4 % - Diastolic/Systolic Function Name Value Normal Range MV E-wave Vmax 0.67 m/sec - MV deceleration time 137.49 msec - MV A-wave Vmax 0.88 m/sec - MV E:A ratio 0.77 ratio - Aortic Valve Name Value Normal Range AV Vmax 3.23 m/sec - AV VTI 54.14 cm - AV peak gradient 48.15 mmHg - AV mean gradient 20.93 mmHg - LVOT diameter 2.11 cm - LVOT Vmax 0.92 m/sec - LVOT VTI 17.92 cm - LVOT peak gradient 3.42 mmHg - LVOT mean gradient 1.46 mmHg - SV LVOT 62.51 ml - NAVIN (continuity Vmax) 1 cm2 - NAVIN (continuity VTI) 1.15 cm2 - AR PHT 720.82 msec - AR peak gradient 15.53 mmHg - Ascending Ao 3.71 cm - Tricuspid Valve Name Value Normal Range TV E-wave Vmax 0.51 m/sec - TR Vmax 2.8 m/sec - TR peak gradient 31.37 mmHg - RAP 15 mmHg - RVSP 46 mmHg - IVC diameter 2.4 cm (1.2 - 2.3) Pulmonic Valve/Qp:Qs Name Value Normal Range PV Vmax 1.09 m/sec - PV peak gradient 4.78 mmHg - RVOT Vmax 0.7 m/sec - RVOT VTI 13.89 cm - RVOT peak gradient 1.96 mmHg - PV acceleration time 95.15 msec - Cunningham/IV: Voiding Method Indwelling Catheter IV Catheter Type [right wrist] Peripheral IV IV Catheter Type [Right Trilysis Femoral] IV Catheter Type [Right Upper PICC Line arm] IV Catheter Type [Left Upper Mid-line arm] Active Medications - Current Medications Current Medications: Generic Name Dose Route Start Last Admin Trade Name Freq PRN Reason Stop Dose Admin Acetaminophen 650 mg 03/19/20 18:21 03/19/20 18:39 Tylenol FEEDTUBE 650 mg Q6H PRN Administration Pain, Mild (1-3) Albuterol 2.5 mg 03/16/20 17:00 Proventil IH Q3HRT PRN Shortness Of Breath Lipase/Protease/Amylase 1 each 03/17/20 17:12 Pancrescooby Granger 10,500 Unit FEEDTUBE PRN PRN For Clogged Feeding Tube Epoetin Colin 10,000 unit 03/24/20 17:00 Procrit IV DAYLIN IDRIS Famotidine 20 mg 03/18/20 10:00 03/25/20 10:24 Pepcid IV 20 mg DAILY IDRIS Administration Hydromorphone HCl 0.25 mg 03/16/20 17:30 Dilaudid IV Q4H PRN Pain, Moderate (4-6) Hydrophilic Ointment 1 applic 03/21/20 07:50 03/21/20 16:38 Aquaphor TP 1 applic Q12HR PRN Administration DRY SKIN Sodium Chloride 100 mls @ 999 mls/hr 03/20/20 15:38 Nacl 0.9% IV DAYLIN PRN Hypotension Argatroban 250 mg/ Sodium 250 mls @ 14.04 mls/hr 03/22/20 16:00 03/25/20 06:04 Chloride IV 0.5 mcg/kg/min TITR IDRIS 3.51 mls/hr Administration Protocol 2 MCG/KG/MIN Insulin Glargine 20 units 03/18/20 22:00 03/25/20 00:27 Lantus SUB-Q 20 units QHS IDRIS Administration Insulin Human Lispro 0 unit 03/18/20 12:00 03/25/20 06:04 Humalog SUB-Q Not Given Q6HR [facility] Protocol Midodrine 10 mg 03/20/20 12:00 03/25/20 10:25 Proamatine PO 10 mg TID@0800,1200,1600 IDRIS Administration Simple Syrup 15 ml 03/17/20 17:12 Simple Syrup FEEDTUBE PRN PRN Hypoglycemia Simple Syrup 30 ml 03/17/20 17:12 Simple Syrup FEEDTUBE PRN PRN Hypoglycemia Sodium Bicarbonate 325 mg 03/17/20 17:12 Sodium Bicarbonate FEEDTUBE PRN PRN For Clogged Feeding Tube Sodium Chloride 10 ml 03/16/20 22:00 03/25/20 10:25 Sodium Chloride Flush Syringe 10 Ml IV 10 ml BID IDRIS Administration Sodium Chloride 10 ml 03/16/20 17:00 Sodium Chloride Flush Syringe 10 Ml IV PRN PRN LINE FLUSH Vancomycin HCl 250 mg 03/20/20 12:00 03/25/20 06:04 Vancomycin Po PO 04/03/20 06:01 250 mg Q6HR IDRIS Administration Nutrition/Malnutrition Assess - Dietary Evaluation Nutrition/Malnutrition Findings: Nutrition Notes Start: 03/18/20 09:15 Freq: Status: Active Protocol: Document 03/24/20 14:45 EN (Rec: 03/24/20 14:50 EN [email or web address]) Co-Sign 03/24/20 14:45 LM Nutrition Notes Initial or Follow up Brief Note Current Diagnosis Acute Kidney Injury,CKD(stage I-IV),Diabetes,Hypertension Other Pertinent Diagnosis Septic shock, debility, hypothermia, COVID-19 (-) Current Diet pureed diet Subjective/Other Information F/u for diet advancement tolerance and intakes. Spoke with RN who reports setting up lunch at 1pm. Unable to reach RN x2 at 2:45pm to see if pt tolerated lunch. Nutrition Intervention Follow-Up By: 03/27/20 Additional Comments F/u for diet advancement tolerance and intakes
--- NOTE | 2020-03-25 12:22 | Event Note ---
Date: 03/25/20 79 year old male with progression to ESRD requiring HD. Has femoral vascath. Leukocytosis due to steroids. No fevers. BCx NGTD. Plan for permcath this upcoming week and femoral line removal as patient is still requiring dialysis and out of ICU. NPO for friday except sips of water with meds. If too busy, may need to switch case to Friday.
--- NOTE | 2020-03-25 14:31 | Progress Note ---
Assessment and Plan Assessment ALEJANDRO likely due to ischemic ATN, requiring dialysis Metabolic Encephalopathy Severe sepsis with septic Shock Anion Gap Metabolic acidosis Acute hypoxic respiratory failure Severe C. Diff Colitis Recent ESBL Bacteremia Hypokalemia Hypomagnesemia Anemia Exfoliative Rash Bilateral Leg Lymphedema Plan: S/p HD yesterday for UF and clearance, UF removed 1L No acute indication for HD today 24 hr urine creatinine clearance pending Vascular surgery evaluated pt, planning on perm cath placement on Friday S/p R femoral IJ Vascath by Vascular Surgery and first HD treatment on 03/20/20 Epogen dosing for anemia management Consulted CM for outpatient dialysis placement to [facility] ID evaluated pt, on Abx, recommended removing femoral line, vascular surgery planning on perm cath placement and removal of femoral line on Friday Renally dose medications Strict I&O Cunningham Catheter: Yes Renal plan d/w Dr Zambrano Subjective Date of service: 03/25/20 Principal diagnosis: Acute hypoxemic respiratory failure; Septic shock; Ac. encephalopathy; ALEJANDRO Interval history: Pt seen in bed, states he's breathing ok today, denies shortness of breath, no acute distress, no family at bedside Objective - Vital Signs Vital signs: Vital Signs - 12hr 03/25/20 03/25/20 03/25/20 04:57 08:55 09:46 Temperature 97.3 F L 98.4 F Pulse Rate 66 76 Respiratory 18 18 Rate Blood Pressure 119/59 121/55 O2 Sat by Pulse 92 99 99 Oximetry - General Appearance General appearance: fatigue EENT: ATNC Neck: no JVD Respiratory: Present: Decreased Breath Sounds Cardiology: S1S2, other (ACCESS: Right femoral Vas Catheter in place) Gastrointestinal: normoactive bowel sounds (round, rectal tube in place) Integumentary: other ( skin rashes noted throughout body) Neurologic: alert and oriented x3, other Musculoskeletal: other (2+ edema to BLE) Psychiatric: cooperative - Lab 03/24/20 05:19 03/25/20 06:25 Most recent lab results ABG pH 7.378 pH Units (7.350-7.450) 03/20/20 16:35 ABG pCO2 38.6 mm Hg 03/20/20 16:35 ABG pO2 63.9 mm Hg (80.0-90.0) L 03/20/20 16:35 ABG HCO3 22.2 mmol/L (20.0-26.0) 03/20/20 16:35 ABG O2 Saturation 90.9 % (95.0-99.0) L 03/20/20 16:35 Calcium 8.3 mg/dL (8.4-10.2) L 03/25/20 06:25 Phosphorus 4.90 mg/dL (2.5-4.5) H 03/25/20 06:25 Magnesium 1.80 mg/dL (1.7-2.3) 03/24/20 05:19 Urine Creatinine 139.3 mg/dL (0.1-20.0) H 03/17/20 Unknown Urine Sodium 53 mmol/L 03/17/20 Unknown Urine Total Protein 328 mg/dL (5-11.8) H 03/17/20 Unknown Medications & Allergies - Medications Allergies/Adverse Reactions: Allergies diclofenac [Diclofenac] Allergy (Verified 10/05/18 08:11) Rash Home Medications: Home Medications Medication Instructions Recorded Confirmed Last Taken Type Acetaminophen [Acetaminophen TAB] 650 mg PO Q4H PRN #1 tablet 02/28/17 03/19/20 Unknown Rx Aspirin [Aspirin BABY CHEW TAB] 81 mg PO DAILY #1 tab.chew 02/28/17 03/19/20 Unknown Rx Ferrous Sulfate [Feosol 325 MG tab] 325 mg PO QDAY #1 tablet 02/28/17 03/19/20 Unknown Rx Gabapentin 300 mg PO Q8HR #1 capsule 02/28/17 03/19/20 Unknown Rx Ondansetron [Zofran INJ] 4 mg IV Q8H PRN #1 vial 02/28/17 03/19/20 Unknown Rx amLODIPine 10 mg PO DAILY #1 tablet 02/28/17 03/19/20 Unknown Rx Ertapenem [INVanz] 1 gm IV QDAY vial 03/10/20 03/19/20 Unknown Rx Active Medications: Generic Name Dose Route Start Last Admin Trade Name Freq PRN Reason Stop Dose Admin Acetaminophen 650 mg 03/19/20 18:21 03/19/20 18:39 Tylenol FEEDTUBE 650 mg Q6H PRN Administration Pain, Mild (1-3) Albuterol 2.5 mg 03/16/20 17:00 Proventil IH Q3HRT PRN Shortness Of Breath Lipase/Protease/Amylase 1 each 03/17/20 17:12 Pancreaze 10,500 Unit FEEDTUBE PRN PRN For Clogged Feeding Tube Epoetin Colin 10,000 unit 03/24/20 17:00 Procrit IV DAYLIN IDRIS Famotidine 20 mg 03/18/20 10:00 03/25/20 10:24 Pepcid IV 20 mg DAILY IDRIS Administration Hydromorphone HCl 0.25 mg 03/16/20 17:30 Dilaudid IV Q4H PRN Pain, Moderate (4-6) Hydrophilic Ointment 1 applic 03/21/20 07:50 03/21/20 16:38 Aquaphor TP 1 applic Q12HR PRN Administration DRY SKIN Sodium Chloride 100 mls @ 999 mls/hr 03/20/20 15:38 Nacl 0.9% IV DAYLIN PRN Hypotension Argatroban 250 mg/ Sodium 250 mls @ 14.04 mls/hr 03/22/20 16:00 03/25/20 06:04 Chloride IV 0.5 mcg/kg/min TITR IDRIS 3.51 mls/hr Administration Protocol 2 MCG/KG/MIN Insulin Glargine 20 units 03/18/20 22:00 03/25/20 00:27 Lantus SUB-Q 20 units QHS [facility] Administration Insulin Human Lispro 0 unit 03/18/20 12:00 03/25/20 13:47 Humalog SUB-Q Not Given Q6HR [facility] Protocol Midodrine 10 mg 03/20/20 12:00 03/25/20 13:38 Proamatine PO 10 mg TID@0800,1200,1600 IDRIS Administration Simple Syrup 15 ml 03/17/20 17:12 Simple Syrup FEEDTUBE PRN PRN Hypoglycemia Simple Syrup 30 ml 03/17/20 17:12 Simple Syrup FEEDTUBE PRN PRN Hypoglycemia Sodium Bicarbonate 325 mg 03/17/20 17:12 Sodium Bicarbonate FEEDTUBE PRN PRN For Clogged Feeding Tube Sodium Chloride 10 ml 03/16/20 22:00 03/25/20 10:25 Sodium Chloride Flush Syringe 10 Ml IV 10 ml BID IDRIS Administration Sodium Chloride 10 ml 03/16/20 17:00 Sodium Chloride Flush Syringe 10 Ml IV PRN PRN LINE FLUSH Vancomycin HCl 250 mg 03/20/20 12:00 03/25/20 13:44 Vancomycin Po PO 04/03/20 06:01 250 mg Q6HR IDRIS Administration
--- NOTE | 2020-03-25 22:23 | Progress Note ---
Assessment and Plan Patient awake. Weak. Resting on room air. O2 saturation 91%. Recommend Keep O2 2 litres via nasal canula. Patient denies chest pain, shortness of breath or cough. Patient afebrile. Has leukocytosis. Patient is on vancomycin. Chest xray done 03/20/20 reported moderate left pleural effusion with similar bibasilar opacities. No pneumothorax. - Patient Problems (1) Sepsis Current Visit: No Status: Acute Plan to address problem: Patient is on Vancomycin. (2) Suspected 2019 novel coronavirus infection Current Visit: No Status: Acute Plan to address problem: Lu virus reported negative. (3) Acute kidney injury (ALEJANDRO) with acute tubular necrosis (ATN) Current Visit: Yes Status: Acute Plan to address problem: Management as per nephrology. (4) History of ESBL E. coli infection Current Visit: Yes Status: Acute Plan to address problem: Management as per infectious diseases. (5) Toxic metabolic encephalopathy Current Visit: Yes Status: Acute Plan to address problem: Management as per primary care. (6) Cellulitis of right leg Current Visit: No Status: Acute Plan to address problem: Patient is on vancimycin. (7) Pleural effusion, left Current Visit: Yes Status: Acute Plan to address problem: Obtaining ultrasound of chest to quantitate pleural effusion. (8) Pulmonary infiltrates on CXR Current Visit: Yes Status: Acute Plan to address problem: Patient is on vancomycin. 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 Subjective Date of service: 03/25/20 Principal diagnosis: Acute hypoxemic respiratory failure; Septic shock; Ac. encephalopathy; ALEJANDRO Interval history: Patient awake. Weak. Resting on room air. O2 saturation 91%. Recommend Keep O2 2 litres via nasal canula. Patient denies chest pain, shortness of breath or cough. Patient afebrile. Has leukocytosis. Patient is on vancomycin. Chest xray done 03/20/20 reported moderate left pleural effusion with similar bibasilar opa cities. No pneumothorax. Objective Vital Signs - 12hr 03/25/20 03/25/20 11:36 20:16 Temperature 98.1 F 97.6 F Pulse Rate 67 Respiratory 18 18 Rate Blood Pressure 126/54 115/66 O2 Sat by Pulse 91 Oximetry Constitutional: no acute distress, alert, appears uncomfortable, other (elderly obese male with mild respiratory effort at rest) Eyes: non-icteric ENT: oropharynx dry Neck: supple, no JVD, other (large neck circumference) Effort: mildly labored Ascultation: Bilateral: diminished breath sounds, rhonchi Percussion: Bilateral: not dull Cardiovascular: other (S1,S2, Tachycardia, hypotension on Vasopressor) Gastrointestinal: normoactive bowel sounds, soft, non-tender, non-distended (protuberant) Integumentary: rash (Generalized skin flaking/with superficial skin sloughing without erythema or warmth on chest wall), decubitus ulcer (see RN/WCN notes for details) Extremities: pulses normal, cool, other (LUExt midline, RUext PICC line) Neurologic: non-focal exam (grossly), pupils equal and round, CN II-XII normal Psychiatric: other (flat affect to depressed at times) CBC and BMP: 03/24/20 05:19 03/25/20 06:25 ABG, PT/INR, D-dimer: ABG ABG pH 7.378 pH Units (7.350-7.450) 03/20/20 16:35 POC ABG pCO2 37.3 mmHg (32.0-48.0) 03/18/20 12:14 ABG pCO2 38.6 mm Hg 03/20/20 16:35 POC ABG pO2 67.4 mmHg (83-108) L 03/18/20 12:14 ABG pO2 63.9 mm Hg (80.0-90.0) L 03/20/20 16:35 POC ABG HCO3 14.1 03/18/20 12:14 ABG O2 Saturation 90.9 % (95.0-99.0) L 03/20/20 16:35 PT/INR, D-dimer PT 14.3 Sec. (12.2-14.9) 03/22/20 16:30 INR 1.09 (0.87-1.13) 03/22/20 16:30 Abnormal lab findings: Abnormal Labs 03/16/20 03/16/20 03/16/20 14:22 14:22 14:23 WBC 32.2 H RBC 2.93 L Hgb 8.9 L Hct 28.2 L MCV 96 H MCHC RDW 18.1 H Plt Count Lymph % (Auto) Lymph # (Auto) [place] # (Auto) Seg Neuts % (Manual) 82.0 H Lymphocytes % (Manual) 10.0 L Nucleated RBC % 3.0 H Seg Neutrophils # Seg Neutrophils # Man 26.4 H Lymphocytes # (Manual) Monocytes # (Manual) 1.9 H PT INR APTT ABG pH POC ABG pO2 ABG pO2 ABG HCO3 ABG O2 Saturation ABG Base Excess ABG Hemoglobin ABG Potassium ABG Chloride ABG Glucose Oxyhemoglobin Sodium Potassium 3.3 L Chloride 108.9 H Carbon Dioxide 12 L BUN 59 H Creatinine 5.9 H Glucose 142 H POC Glucose Calcium 7.7 L Phosphorus Magnesium Alkaline Phosphatase 224 H Total Creatine Kinase Troponin T 0.033 H Total Protein 5.4 L Albumin 1.9 L LDL Cholesterol Direct 35 L HDL Cholesterol 37 L Arterial Blood Glucose Arterial Blood Ionized Calcium Urine WBC (Auto) Urine Creatinine Urine Total Protein Crossmatch 03/16/20 03/16/20 03/16/20 14:27 19:50 21:15 WBC RBC Hgb Hct MCV MCHC RDW Plt Count Lymph % (Auto) Lymph # (Auto) [place] # (Auto) Seg Neuts % (Manual) Lymphocytes % (Manual) Nucleated RBC % Seg Neutrophils # Seg Neutrophils # Man Lymphocytes # (Manual) Monocytes # (Manual) PT 17.2 H INR 1.37 H APTT 51.3 H ABG pH POC ABG pO2 ABG pO2 ABG HCO3 ABG O2 Saturation ABG Base Excess ABG Hemoglobin ABG Potassium ABG Chloride ABG Glucose Oxyhemoglobin Sodium Potassium Chloride Carbon Dioxide BUN Creatinine Glucose POC Glucose Calcium Phosphorus Magnesium Alkaline Phosphatase Total Creatine Kinase Troponin T 0.031 H Total Protein Albumin LDL Cholesterol Direct HDL Cholesterol Arterial Blood Glucose Arterial Blood Ionized Calcium Urine WBC (Auto) > 182.0 H Urine Creatinine Urine Total Protein Crossmatch 03/16/20 03/17/20 03/17/20 22:25 11:13 11:13 WBC 34.4 H RBC 2.60 L Hgb 7.8 L Hct 25.2 L MCV 97 H MCHC 31 L RDW 18.7 H Plt Count Lymph % (Auto) Lymph # (Auto) [place] # (Auto) Seg Neuts % (Manual) 88.0 H Lymphocytes % (Manual) 1.0 L Nucleated RBC % 13.0 H Seg Neutrophils # Seg Neutrophils # Man 30.3 H Lymphocytes # (Manual) 0.3 L Monocytes # (Manual) PT INR APTT ABG pH POC ABG pO2 ABG pO2 ABG HCO3 ABG O2 Saturation ABG Base Excess ABG Hemoglobin ABG Potassium ABG Chloride ABG Glucose Oxyhemoglobin Sodium Potassium 3.3 L Chloride 108.5 H Carbon Dioxide 16 L BUN 57 H Creatinine 5.5 H Glucose 325 H POC Glucose Calcium 7.0 L Phosphorus Magnesium Alkaline Phosphatase Total Creatine Kinase Troponin T 0.047 H D Total Protein Albumin LDL Cholesterol Direct HDL Cholesterol Arterial Blood Glucose Arterial Blood Ionized Calcium Urine WBC (Auto) Urine Creatinine Urine Total Protein Crossmatch 03/17/20 03/17/20 03/17/20 11:13 11:40 Unknown WBC RBC Hgb Hct MCV MCHC RDW Plt Count Lymph % (Auto) Lymph # (Auto) [place] # (Auto) Seg Neuts % (Manual) Lymphocytes % (Manual) Nucleated RBC % Seg Neutrophils # Seg Neutrophils # Man Lymphocytes # (Manual) Monocytes # (Manual) PT INR APTT ABG pH 7.229 L POC ABG pO2 ABG pO2 98.3 H ABG HCO3 14.6 L ABG O2 Saturation ABG Base Excess -12.0 L ABG Hemoglobin 8.9 L ABG Potassium ABG Chloride ABG Glucose Oxyhemoglobin Sodium Potassium Chloride Carbon Dioxide BUN Creatinine Glucose POC Glucose Calcium Phosphorus Magnesium Alkaline Phosphatase Total Creatine Kinase 373 H Troponin T Total Protein Albumin LDL Cholesterol Direct HDL Cholesterol Arterial Blood Glucose Arterial Blood Ionized Calcium Urine WBC (Auto) > 182.0 H Urine Creatinine Urine Total Protein Crossmatch 03/17/20 03/18/20 03/18/20 Unknown 04:40 04:40 WBC 32.0 H RBC 2.56 L Hgb 7.9 L Hct 24.7 L MCV 96 H MCHC RDW 18.2 H Plt Count Lymph % (Auto) Lymph # (Auto) [place] # (Auto) Seg Neuts % (Manual) Lymphocytes % (Manual) Nucleated RBC % Seg Neutrophils # Seg Neutrophils # Man Lymphocytes # (Manual) Monocytes # (Manual) PT INR APTT ABG pH POC ABG pO2 ABG pO2 ABG HCO3 ABG O2 Saturation ABG Base Excess ABG Hemoglobin ABG Potassium ABG Chloride ABG Glucose Oxyhemoglobin Sodium Potassium 2.7 L* Chloride 111.8 H Carbon Dioxide 12 L BUN 56 H Creatinine 4.6 H Glucose 347 H POC Glucose Calcium 6.7 L Phosphorus 5.40 H Magnesium Alkaline Phosphatase Total Creatine Kinase Troponin T Total Protein Albumin LDL Cholesterol Direct HDL Cholesterol Arterial Blood Glucose Arterial Blood Ionized Calcium Urine WBC (Auto) Urine Creatinine 139.3 H Urine Total Protein 328 H Crossmatch 03/18/20 03/18/20 03/18/20 04:40 04:48 12:14 WBC RBC Hgb Hct MCV MCHC RDW Plt Count Lymph % (Auto) Lymph # (Auto) [place] # (Auto) Seg Neuts % (Manual) Lymphocytes % (Manual) Nucleated RBC % Seg Neutrophils # Seg Neutrophils # Man Lymphocytes # (Manual) Monocytes # (Manual) PT INR APTT ABG pH 7.230 L 7.196 L POC ABG pO2 67.4 L ABG pO2 91.6 H ABG HCO3 13.7 L ABG O2 Saturation ABG Base Excess -12.8 L ABG Hemoglobin 9.2 L 9.9 L ABG Potassium 3.3 L ABG Chloride 112.0 H ABG Glucose 355 H Oxyhemoglobin 94.8 L Sodium Potassium Chloride Carbon Dioxide BUN Creatinine Glucose POC Glucose Calcium Phosphorus Magnesium 1.40 L Alkaline Phosphatase Total Creatine Kinase Troponin T Total Protein Albumin LDL Cholesterol Direct HDL Cholesterol Arterial Blood Glucose 355 H Arterial Blood Ionized Calcium 4.5 L Urine WBC (Auto) Urine Creatinine Urine Total Protein Crossmatch 03/18/20 03/18/20 03/18/20 13:17 13:32 19:15 WBC RBC Hgb Hct MCV MCHC RDW Plt Count Lymph % (Auto) Lymph # (Auto) [place] # (Auto) Seg Neuts % (Manual) Lymphocytes % (Manual) Nucleated RBC % Seg Neutrophils # Seg Neutrophils # Man Lymphocytes # (Manual) Monocytes # (Manual) PT INR APTT ABG pH POC ABG pO2 ABG pO2 ABG HCO3 ABG O2 Saturation ABG Base Excess ABG Hemoglobin ABG Potassium ABG Chloride ABG Glucose Oxyhemoglobin Sodium Potassium 3.0 L 3.4 L Chloride 107.2 H Carbon Dioxide 14 L 13 L BUN 59 H 67 H Creatinine 4.8 H 5.1 H Glucose 341 H 371 H POC Glucose 394 H Calcium 7.0 L 7.8 L Phosphorus Magnesium Alkaline Phosphatase Total Creatine Kinase Troponin T Total Protein Albumin LDL Cholesterol Direct HDL Cholesterol Arterial Blood Glucose Arterial Blood Ionized Calcium Urine WBC (Auto) Urine Creatinine Urine Total Protein Crossmatch 10/03/18/20 03/19/20 19:21 23:00 01:32 EST WBC RBC Hgb Hct MCV MCHC RDW Plt Count Lymph % (Auto) Lymph # (Auto) [place] # (Auto) Seg Neuts % (Manual) Lymphocytes % (Manual) Nucleated RBC % Seg Neutrophils # Seg Neutrophils # Man Lymphocytes # (Manual) Monocytes # (Manual) PT INR APTT ABG pH POC ABG pO2 ABG pO2 ABG HCO3 ABG O2 Saturation ABG Base Excess ABG Hemoglobin ABG Potassium ABG Chloride ABG Glucose Oxyhemoglobin Sodium Potassium Chloride Carbon Dioxide BUN Creatinine Glucose POC Glucose 453 H 360 H 338 H Calcium Phosphorus Magnesium Alkaline Phosphatase Total Creatine Kinase Troponin T Total Protein Albumin LDL Cholesterol Direct HDL Cholesterol Arterial Blood Glucose Arterial Blood Ionized Calcium Urine WBC (Auto) Urine Creatinine Urine Total Protein Crossmatch 03/19/20 03/19/20 03/19/20 04:10 05:10 05:10 WBC 25.8 H RBC 3.61 L Hgb 10.9 L D Hct MCV 100 H MCHC 30 L RDW 19.1 H Plt Count Lymph % (Auto) Lymph # (Auto) [place] # (Auto) Seg Neuts % (Manual) Lymphocytes % (Manual) Nucleated RBC % Seg Neutrophils # Seg Neutrophils # Man Lymphocytes # (Manual) Monocytes # (Manual) PT INR APTT ABG pH 7.309 L POC ABG pO2 ABG pO2 69.4 L ABG HCO3 17.9 L ABG O2 Saturation 92.4 L ABG Base Excess -7.6 L ABG Hemoglobin 8.1 L ABG Potassium ABG Chloride ABG Glucose Oxyhemoglobin 90.8 L Sodium Potassium Chloride Carbon Dioxide BUN Creatinine Glucose POC Glucose Calcium Phosphorus 5.60 H Magnesium Alkaline Phosphatase Total Creatine Kinase Troponin T Total Protein Albumin LDL Cholesterol Direct HDL Cholesterol Arterial Blood Glucose Arterial Blood Ionized Calcium Urine WBC (Auto) Urine Creatinine Urine Total Protein Crossmatch 03/19/20 03/19/20 03/19/20 10:00 11:22 Unknown WBC RBC Hgb Hct MCV MCHC RDW Plt Count Lymph % (Auto) Lymph # (Auto) [place] # (Auto) Seg Neuts % (Manual) Lymphocytes % (Manual) Nucleated RBC % Seg Neutrophils # Seg Neutrophils # Man Lymphocytes # (Manual) Monocytes # (Manual) PT 15.3 H INR 1.18 H APTT ABG pH POC ABG pO2 ABG pO2 ABG HCO3 ABG O2 Saturation ABG Base Excess ABG Hemoglobin ABG Potassium ABG Chloride ABG Glucose Oxyhemoglobin Sodium Potassium 3.0 L Chloride Carbon Dioxide BUN 69 H Creatinine 5.4 H Glucose 250 H POC Glucose 274 H Calcium 7.9 L Phosphorus Magnesium Alkaline Phosphatase Total Creatine Kinase Troponin T Total Protein Albumin LDL Cholesterol Direct HDL Cholesterol Arterial Blood Glucose Arterial Blood Ionized Calcium Urine WBC (Auto) Urine Creatinine Urine Total Protein Crossmatch 03/20/20 03/20/20 03/20/20 01:56 05:22 06:35 WBC 27.5 H RBC 2.57 L Hgb 7.9 L D Hct 23.3 L D MCV MCHC RDW 17.7 H Plt Count Lymph % (Auto) Lymph # (Auto) [place] # (Auto) Seg Neuts % (Manual) Lymphocytes % (Manual) Nucleated RBC % Seg Neutrophils # Seg Neutrophils # Man Lymphocytes # (Manual) Monocytes # (Manual) PT INR APTT ABG pH POC ABG pO2 ABG pO2 ABG HCO3 ABG O2 Saturation ABG Base Excess ABG Hemoglobin ABG Potassium ABG Chloride ABG Glucose Oxyhemoglobin Sodium Potassium Chloride Carbon Dioxide BUN Creatinine Glucose POC Glucose 145 H 181 H Calcium Phosphorus Magnesium Alkaline Phosphatase Total Creatine Kinase Troponin T Total Protein Albumin LDL Cholesterol Direct HDL Cholesterol Arterial Blood Glucose Arterial Blood Ionized Calcium Urine WBC (Auto) Urine Creatinine Urine Total Protein Crossmatch 03/20/20 03/20/20 03/20/20 06:35 12:10 13:30 WBC RBC Hgb Hct MCV MCHC RDW Plt Count Lymph % (Auto) Lymph # (Auto) [place] # (Auto) Seg Neuts % (Manual) Lymphocytes % (Manual) Nucleated RBC % Seg Neutrophils # Seg Neutrophils # Man Lymphocytes # (Manual) Monocytes # (Manual) PT INR APTT ABG pH POC ABG pO2 ABG pO2 ABG HCO3 ABG O2 Saturation ABG Base Excess ABG Hemoglobin ABG Potassium ABG Chloride ABG Glucose Oxyhemoglobin Sodium Potassium 2.9 L* Chloride Carbon Dioxide BUN 69 H Creatinine 5.1 H Glucose 146 H POC Glucose 164 H Calcium 8.2 L Phosphorus 5.40 H Magnesium Alkaline Phosphatase Total Creatine Kinase Troponin T Total Protein Albumin LDL Cholesterol Direct HDL Cholesterol Arterial Blood Glucose Arterial Blood Ionized Calcium Urine WBC (Auto) 153.0 H Urine Creatinine Urine Total Protein Crossmatch 03/20/20 03/20/20 03/20/20 16:00 16:35 17:23 WBC RBC Hgb Hct MCV MCHC RDW Plt Count Lymph % (Auto) Lymph # (Auto) [place] # (Auto) Seg Neuts % (Manual) Lymphocytes % (Manual) Nucleated RBC % Seg Neutrophils # Seg Neutrophils # Man Lymphocytes # (Manual) Monocytes # (Manual) PT INR APTT ABG pH POC ABG pO2 ABG pO2 63.9 L ABG HCO3 ABG O2 Saturation 90.9 L ABG Base Excess -2.6 L ABG Hemoglobin 9.5 L ABG Potassium ABG Chloride ABG Glucose Oxyhemoglobin 89.3 L Sodium 146 H Potassium 3.3 L Chloride Carbon Dioxide BUN 72 H Creatinine 5.1 H Glucose 150 H POC Glucose 191 H Calcium 8.2 L Phosphorus Magnesium Alkaline Phosphatase Total Creatine Kinase Troponin T Total Protein Albumin LDL Cholesterol Direct HDL Cholesterol Arterial Blood Glucose Arterial Blood Ionized Calcium Urine WBC (Auto) Urine Creatinine Urine Total Protein Crossmatch 03/21/20 03/21/20 03/21/20 00:48 03:55 03:55 WBC 22.4 H RBC 2.06 L Hgb 6.3 L Hct 19.2 L* MCV MCHC RDW 17.7 H Plt Count 86 L Lymph % (Auto) Lymph # (Auto) [place] # (Auto) Seg Neuts % (Manual) Lymphocytes % (Manual) Nucleated RBC % Seg Neutrophils # Seg Neutrophils # Man Lymphocytes # (Manual) Monocytes # (Manual) PT INR APTT ABG pH POC ABG pO2 ABG pO2 ABG HCO3 ABG O2 Saturation ABG Base Excess ABG Hemoglobin ABG Potassium ABG Chloride ABG Glucose Oxyhemoglobin Sodium 148 H Potassium 2.8 L* Chloride 108.2 H Carbon Dioxide BUN 52 H Creatinine 3.8 H Glucose 130 H POC Glucose 158 H Calcium 7.6 L Phosphorus Magnesium Alkaline Phosphatase Total Creatine Kinase Troponin T Total Protein Albumin LDL Cholesterol Direct HDL Cholesterol Arterial Blood Glucose Arterial Blood Ionized Calcium Urine WBC (Auto) Urine Creatinine Urine Total Protein Crossmatch 03/21/20 03/21/20 03/21/20 05:37 06:43 09:15 WBC RBC Hgb Hct MCV MCHC RDW Plt Count Lymph % (Auto) Lymph # (Auto) [place] # (Auto) Seg Neuts % (Manual) Lymphocytes % (Manual) Nucleated RBC % Seg Neutrophils # Seg Neutrophils # Man Lymphocytes # (Manual) Monocytes # (Manual) PT INR APTT ABG pH POC ABG pO2 ABG pO2 ABG HCO3 ABG O2 Saturation ABG Base Excess ABG Hemoglobin ABG Potassium ABG Chloride ABG Glucose Oxyhemoglobin Sodium Potassium 3.5 L D Chloride Carbon Dioxide BUN 56 H Creatinine 4.3 H Glucose 104 H POC Glucose 159 H Calcium Phosphorus Magnesium Alkaline Phosphatase Total Creatine Kinase Troponin T Total Protein Albumin LDL Cholesterol Direct HDL Cholesterol Arterial Blood Glucose Arterial Blood Ionized Calcium Urine WBC (Auto) Urine Creatinine Urine Total Protein Crossmatch See Detail 03/21/20 03/21/20 03/22/20 12:55 17:26 00:16 WBC RBC Hgb Hct MCV MCHC RDW Plt Count Lymph % (Auto) Lymph # (Auto) [place] # (Auto) Seg Neuts % (Manual) Lymphocytes % (Manual) Nucleated RBC % Seg Neutrophils # Seg Neutrophils # Man Lymphocytes # (Manual) Monocytes # (Manual) PT INR APTT ABG pH POC ABG pO2 ABG pO2 ABG HCO3 ABG O2 Saturation ABG Base Excess ABG Hemoglobin ABG Potassium ABG Chloride ABG Glucose Oxyhemoglobin Sodium Potassium Chloride Carbon Dioxide BUN Creatinine Glucose POC Glucose 157 H 128 H 148 H Calcium Phosphorus Magnesium Alkaline Phosphatase Total Creatine Kinase Troponin T Total Protein Albumin LDL Cholesterol Direct HDL Cholesterol Arterial Blood Glucose Arterial Blood Ionized Calcium Urine WBC (Auto) Urine Creatinine Urine Total Protein Crossmatch 03/22/20 03/22/20 03/22/20 04:00 04:43 05:00 WBC 26.2 H RBC 3.16 L Hgb 9.6 L D Hct 29.1 L D MCV MCHC RDW 18.2 H Plt Count 86 L Lymph % (Auto) Lymph # (Auto) [place] # (Auto) Seg Neuts % (Manual) Lymphocytes % (Manual) Nucleated RBC % Seg Neutrophils # Seg Neutrophils # Man Lymphocytes # (Manual) Monocytes # (Manual) PT INR APTT ABG pH POC ABG pO2 ABG pO2 ABG HCO3 ABG O2 Saturation ABG Base Excess ABG Hemoglobin ABG Potassium ABG Chloride ABG Glucose Oxyhemoglobin Sodium Potassium 3.5 L Chloride Carbon Dioxide BUN 47 H Creatinine 3.3 H Glucose 171 H POC Glucose Calcium 8.3 L Phosphorus Magnesium 1.60 L Alkaline Phosphatase Total Creatine Kinase Troponin T Total Protein Albumin LDL Cholesterol Direct HDL Cholesterol Arterial Blood Glucose Arterial Blood Ionized Calcium Urine WBC (Auto) Urine Creatinine Urine Total Protein Crossmatch 03/22/20 03/22/20 03/22/20 05:41 12:18 17:29 WBC RBC Hgb Hct MCV MCHC RDW Plt Count Lymph % (Auto) Lymph # (Auto) [place] # (Auto) Seg Neuts % (Manual) Lymphocytes % (Manual) Nucleated RBC % Seg Neutrophils # Seg Neutrophils # Man Lymphocytes # (Manual) Monocytes # (Manual) PT INR APTT ABG pH POC ABG pO2 ABG pO2 ABG HCO3 ABG O2 Saturation ABG Base Excess ABG Hemoglobin ABG Potassium ABG Chloride ABG Glucose Oxyhemoglobin Sodium Potassium Chloride Carbon Dioxide BUN Creatinine Glucose POC Glucose 183 H 129 H 184 H Calcium Phosphorus Magnesium Alkaline Phosphatase Total Creatine Kinase Troponin T Total Protein Albumin LDL Cholesterol Direct HDL Cholesterol Arterial Blood Glucose Arterial Blood Ionized Calcium Urine WBC (Auto) Urine Creatinine Urine Total Protein Crossmatch 03/22/20 03/23/20 03/23/20 19:13 00:22 06:09 WBC RBC Hgb Hct MCV MCHC RDW Plt Count Lymph % (Auto) Lymph # (Auto) [place] # (Auto) Seg Neuts % (Manual) Lymphocytes % (Manual) Nucleated RBC % Seg Neutrophils # Seg Neutrophils # Man Lymphocytes # (Manual) Monocytes # (Manual) PT INR APTT 91.0 H* ABG pH POC ABG pO2 ABG pO2 ABG HCO3 ABG O2 Saturation ABG Base Excess ABG Hemoglobin ABG Potassium ABG Chloride ABG Glucose Oxyhemoglobin Sodium Potassium Chloride Carbon Dioxide BUN Creatinine Glucose POC Glucose 159 H 166 H Calcium Phosphorus Magnesium Alkaline Phosphatase Total Creatine Kinase Troponin T Total Protein Albumin LDL Cholesterol Direct HDL Cholesterol Arterial Blood Glucose Arterial Blood Ionized Calcium Urine WBC (Auto) Urine Creatinine Urine Total Protein Crossmatch 03/23/20 03/23/20 03/23/20 09:35 09:35 09:35 WBC 26.9 H RBC 3.60 L Hgb 10.7 L Hct 32.7 L MCV MCHC RDW 18.9 H Plt Count 98 L Lymph % (Auto) Lymph # (Auto) [place] # (Auto) Seg Neuts % (Manual) 94.0 H Lymphocytes % (Manual) 2.0 L Nucleated RBC % 1.0 H Seg Neutrophils # Seg Neutrophils # Man 25.3 H Lymphocytes # (Manual) 0.5 L Monocytes # (Manual) PT INR APTT ABG pH POC ABG pO2 ABG pO2 ABG HCO3 ABG O2 Saturation ABG Base Excess ABG Hemoglobin ABG Potassium ABG Chloride ABG Glucose Oxyhemoglobin Sodium Potassium 3.5 L Chloride Carbon Dioxide BUN 61 H Creatinine 3.7 H Glucose 148 H POC Glucose Calcium Phosphorus 4.90 H D Magnesium Alkaline Phosphatase Total Creatine Kinase Troponin T Total Protein Albumin LDL Cholesterol Direct HDL Cholesterol Arterial Blood Glucose Arterial Blood Ionized Calcium Urine WBC (Auto) Urine Creatinine Urine Total Protein Crossmatch 03/23/20 03/23/20 03/23/20 09:35 11:56 17:07 WBC RBC Hgb Hct MCV MCHC RDW Plt Count Lymph % (Auto) Lymph # (Auto) [place] # (Auto) Seg Neuts % (Manual) Lymphocytes % (Manual) Nucleated RBC % Seg Neutrophils # Seg Neutrophils # Man Lymphocytes # (Manual) Monocytes # (Manual) PT INR APTT 115.2 H* 74.5 H* ABG pH POC ABG pO2 ABG pO2 ABG HCO3 ABG O2 Saturation ABG Base Excess ABG Hemoglobin ABG Potassium ABG Chloride ABG Glucose Oxyhemoglobin Sodium Potassium Chloride Carbon Dioxide BUN Creatinine Glucose POC Glucose 159 H Calcium Phosphorus Magnesium Alkaline Phosphatase Total Creatine Kinase Troponin T Total Protein Albumin LDL Cholesterol Direct HDL Cholesterol Arterial Blood Glucose Arterial Blood Ionized Calcium Urine WBC (Auto) Urine Creatinine Urine Total Protein Crossmatch 03/23/20 03/23/20 03/23/20 17:34 21:45 22:24 WBC RBC Hgb Hct MCV MCHC RDW Plt Count Lymph % (Auto) Lymph # (Auto) [place] # (Auto) Seg Neuts % (Manual) Lymphocytes % (Manual) Nucleated RBC % Seg Neutrophils # Seg Neutrophils # Man Lymphocytes # (Manual) Monocytes # (Manual) PT INR APTT 112.5 H* ABG pH POC ABG pO2 ABG pO2 ABG HCO3 ABG O2 Saturation ABG Base Excess ABG Hemoglobin ABG Potassium ABG Chloride ABG Glucose Oxyhemoglobin Sodium Potassium Chloride Carbon Dioxide BUN Creatinine Glucose POC Glucose 217 H 160 H Calcium Phosphorus Magnesium Alkaline Phosphatase Total Creatine Kinase Troponin T Total Protein Albumin LDL Cholesterol Direct HDL Cholesterol Arterial Blood Glucose Arterial Blood Ionized Calcium Urine WBC (Auto) Urine Creatinine Urine Total Protein Crossmatch 03/24/20 03/24/20 03/24/20 01:13 05:19 05:19 WBC 28.6 H RBC 3.57 L Hgb 10.7 L Hct 33.3 L MCV MCHC RDW 18.4 H Plt Count 94 L Lymph % (Auto) 4.0 L Lymph # (Auto) 1.1 L [place] # (Auto) 0.9 H Seg Neuts % (Manual) Lymphocytes % (Manual) Nucleated RBC % Seg Neutrophils # 26.4 H Seg Neutrophils # Man Lymphocytes # (Manual) Monocytes # (Manual) PT INR APTT ABG pH POC ABG pO2 ABG pO2 ABG HCO3 ABG O2 Saturation ABG Base Excess ABG Hemoglobin ABG Potassium ABG Chloride ABG Glucose Oxyhemoglobin Sodium 146 H Potassium 3.5 L Chloride Carbon Dioxide BUN 71 H Creatinine 3.9 H Glucose 141 H POC Glucose 186 H Calcium 8.3 L Phosphorus 5.80 H Magnesium Alkaline Phosphatase Total Creatine Kinase Troponin T Total Protein Albumin LDL Cholesterol Direct HDL Cholesterol Arterial Blood Glucose Arterial Blood Ionized Calcium Urine WBC (Auto) Urine Creatinine Urine Total Protein Crossmatch 03/24/20 03/24/20 03/24/20 05:19 06:35 12:24 WBC RBC Hgb Hct MCV MCHC RDW Plt Count Lymph % (Auto) Lymph # (Auto) [place] # (Auto) Seg Neuts % (Manual) Lymphocytes % (Manual) Nucleated RBC % Seg Neutrophils # Seg Neutrophils # Man Lymphocytes # (Manual) Monocytes # (Manual) PT INR APTT 91.5 H* ABG pH POC ABG pO2 ABG pO2 ABG HCO3 ABG O2 Saturation ABG Base Excess ABG Hemoglobin ABG Potassium ABG Chloride ABG Glucose Oxyhemoglobin Sodium Potassium Chloride Carbon Dioxide BUN Creatinine Glucose POC Glucose 153 H 162 H Calcium Phosphorus Magnesium Alkaline Phosphatase Total Creatine Kinase Troponin T Total Protein Albumin LDL Cholesterol Direct HDL Cholesterol Arterial Blood Glucose Arterial Blood Ionized Calcium Urine WBC (Auto) Urine Creatinine Urine Total Protein Crossmatch 03/24/20 03/24/20 03/25/20 19:50 23:56 05:11 WBC RBC Hgb Hct MCV MCHC RDW Plt Count Lymph % (Auto) Lymph # (Auto) [place] # (Auto) Seg Neuts % (Manual) Lymphocytes % (Manual) Nucleated RBC % Seg Neutrophils # Seg Neutrophils # Man Lymphocytes # (Manual) Monocytes # (Manual) PT INR APTT 75.3 H* ABG pH POC ABG pO2 ABG pO2 ABG HCO3 ABG O2 Saturation ABG Base Excess ABG Hemoglobin ABG Potassium ABG Chloride ABG Glucose Oxyhemoglobin Sodium Potassium Chloride Carbon Dioxide BUN Creatinine Glucose POC Glucose 193 H 139 H Calcium Phosphorus Magnesium Alkaline Phosphatase Total Creatine Kinase Troponin T Total Protein Albumin LDL Cholesterol Direct HDL Cholesterol Arterial Blood Glucose Arterial Blood Ionized Calcium Urine WBC (Auto) Urine Creatinine Urine Total Protein Crossmatch 03/25/20 03/25/20 03/25/20 06:25 15:39 15:55 WBC RBC Hgb Hct MCV MCHC RDW Plt Count Lymph % (Auto) Lymph # (Auto) [place] # (Auto) Seg Neuts % (Manual) Lymphocytes % (Manual) Nucleated RBC % Seg Neutrophils # Seg Neutrophils # Man Lymphocytes # (Manual) Monocytes # (Manual) PT INR APTT 79.3 H* ABG pH POC ABG pO2 ABG pO2 ABG HCO3 ABG O2 Saturation ABG Base Excess ABG Hemoglobin ABG Potassium ABG Chloride ABG Glucose Oxyhemoglobin Sodium Potassium Chloride Carbon Dioxide BUN 54 H Creatinine 3.1 H Glucose 112 H POC Glucose 111 H Calcium 8.3 L Phosphorus 4.90 H Magnesium Alkaline Phosphatase Total Creatine Kinase Troponin T Total Protein Albumin LDL Cholesterol Direct HDL Cholesterol Arterial Blood Glucose Arterial Blood Ionized Calcium Urine WBC (Auto) Urine Creatinine Urine Total Protein Crossmatch Chest x-ray: report reviewed, image reviewed Additional Studies: CHEST 1 VIEW 03/20/2020 1:41 PM INDICATION / CLINICAL INFORMATION: Bilateral infiltrates, shortness of breath. COMPARISON: Chest one view from 03/19/2020. FINDINGS: SUPPORT DEVICES: Unchanged. HEART / MEDIASTINUM: Stable. LUNGS / PLEURA: Similar moderate left pleural effusion with similar bibasilar opacities. No pneumothorax. ADDITIONAL FINDINGS: No significant additional findings. IMPRESSION: Stable appearance of the chest compared to 03/19/2020. Allied health notes reviewed: nursing
[2020-03-26] MEDS: INSULIN GLARGINE 100 UNITS/ML SUB-Q SCH ×2 (00:31→22:00)
[2020-03-26] MEDS: VANCOMYCIN 250 MG/10 ML ORAL LIQD PO SCH ×4 (00:31→18:20)
[2020-03-26] MEDS: INSULIN LISPRO 100 UNIT/ML VIAL 3 mL SUB-Q SCH ×4 (00:32→20:48)
[2020-03-26 07:40] LABS: Calcium 8.1 mg/dL (8.4-10.2)
[2020-03-26] MEDS ORDERED: POTASSIUM CHLORIDE ER 20 MEQ TAB PO ONE (08:06)
[2020-03-26] MEDS: MIDODRINE 5 MG TAB PO SCH ×3 (08:19→18:19)
[2020-03-26] MEDS: FAMOTIDINE 20 MG/2 ML INJ IV SCH (11:19)
--- NOTE | 2020-03-26 11:41 | Progress Note ---
Assessment and Plan Assessment and plan: Assessment and plan: Patient is a 79-year-old male with a past medical history of encephalopathy, hypertension, generalized weakness, diabetes type 2, chronic lipidemia, DVT, respiratory failure with hypoxia, CVA, and CKD presents from [facility] with complaint of sepsis with hypotension, alteration mental status, and her labs collected yesterday that resulted today showing a WBC count of 36. Of note patient was recently discharged from the hospital with ertapenem 1 g IV daily ESBL E. coli bacteremia with started on March 11 with plan in date March 21 via PICC line Patient unfortunately continues to worsen despite antibiotic treatment is nonverbal not able to follow any commands and now experiencing multiorgan failure. group home vital signs BP of 66/36, heart rate 62, respiratory rate 16, blood glucose 230, and patient presents on 3 L of nasal cannula oxygen satting 98% Patient had a negative Covid test during admission here March 02. 03/17 Patient also found to have acute kidney injury with acute tubular necrosis, toxic metabolic encephalopathy, metabolic acidosis and hypothermia. The patient is critically ill with a poor prognosis, sepsis protocol was initiated with an ICU admission. Patient was seen by sheet combining operator pressors were increased with also bicarb drip started. Unfortunately bicarb drip had to be held due to PICC line compatibility. A new PICC line has been inserted this morning. Admitting physician did speak with the son and discussed prognosis. I did also call the son this morning who informs me that the brother who is physician is coming into town and will give us further recommendation on arrival. Patient has been started on a third pressor which is epinephrine at this time. To my examination awaiting nephrology evaluation. We will proceed with giving additional 2 L of fluids and also obtain a stat echocardiogram to see what patient's cardiac level is. Based on ejection fraction patient may benefit from dobutamine. Will place BiPAP on standby and if need be and family does not opposed to continued full code we will proceed with likely intubation so the patient can be adequately volume resuscitated. -Continue empiric antibiotic coverage. ID consultation. Critical care assistance and input noted. Fluid Resuscitation As Noted above Continue Diet. Change IV access for triple-lumen PICC line. Will follow cultures. We will also obtain wound care consultation. 03/18: Continue current management, may need dialysis but not a candidate for HD due to 3 Pressors. NO Diarrhea at this time. If not improving respiratory lopez may need Intubation. 03/19: Continue supportive care, mental status showing some improvement, still on BIPAP. BP improving will stop Epi and bring down to 2 pressors. Awaiting ECHO. IF continues to have worsening Renal function, May need transfer to [facility] if unable to perform HD. Patients son updated of current clinically status. 03/20: Right femoral catheter-vas cath Placed for HD. Hypokalemia to be corrected, will give Potassium 20meq. Continue IV abx, no growth so far noted, wean pressors as tolerated, may consider adding Midodrine. WBC trending down. Prior noted Ecoli Bactermia is not noted so far on the blood culture. Continue HD as tolerated, Sodium bicarb drip due to acidosis. 03/21. He has no complaints today. Patient continues to ask when he will be discharged. Labs showed persistent hypokalemia. Continue potassium replacement. Hemoglobin 6.0. Patient will get transfused 1 unit PRBC. 03/22. Hemoglobin stable today. Vascular surgery consulted for femoral line replacement 03/23. Patient seen in the BiPAP. Still has diarrhea and is on vancomycin. Afebrile overnight. Labs reviewed 03/24. Patient may need permacath placement on Friday. 24-hour urine collection ordered as per renal. Monitor rectal tube output closely. PT/OT 03/25. Patient seen and evaluated this morning. He has no complaints. Needs to have right femoral line removed permacath placed on Friday. Nephrology recommendations appreciated. 24-hour urine collection yet to commence as per RN . Steroids tapered off. 03/26. Patient seen and examined at bedside this morning. Has no complaints today. Plan is to have permacath placement tomorrow. He will need to have hemodialysis chair arrangement prior to discharge. manager relationship on the case. Hematology consulted for thrombocytopenia and leukocytosis. Patient remains on argatroban but will be held temporarily for procedure. Assessment and plan Septic shock This has resolved C. difficile infection Continue p.o. vancomycin 250 mg every 6 hours for 14 days ID recommendations appreciated Anemia OF Chronic Disease Monitor hemoglobin Transfused as needed to hemoglobin 7 Electrolyte abnormalities-hypokalemia, hypomagnesemia-replete as needed Acute renal failure likely due to ischemic ATN Now on hemodialysis. Nephrology recommendations appreciated Permacath placement still pending. Vascular both Metabolic Acidosis Resolved. Discontinue sodium bicarb and monitor Acute hypoxic Respiratory failure. Continue oxygen supplementation Acute toxic metabolic encephalopathy Resolved Ruled out COVID-19 Hypothermia Resolved Thrombocytopenia Possibly from ongoing infection vs HIT Trend platelets HIT antibody pending Argatroban for now Nephrology oncology on board Leukocytosis Stress induced - steroids effect vs infection vs leukemia? Monitor for now Hematology oncology consulted PT/OT-back to facility DVT prophylaxis - Argatroban for now Patient is full code History Interval history: Patient seen and examined at bedside this morning. He feels well today. Seen having breakfast Hospitalist Physical - Physical exam Narrative exam: VITAL SIGNS: Reviewed. GENERAL: Awake HEAD: No signs of head trauma. EYES: Pupils are equal. MOUTH: Oropharynx is normal otherwise dry. NECK: No adenopathy, no JVD. CHEST: Chest with diminished breath sounds bilaterally. No wheezes, rales, or rhonchi. CARDIAC: Regular rate and rhythm. S1 and S2, without murmurs, gallops, or rubs. VASCULAR: chronic Edema. Peripheral pulses normal and equal in all extremities. ABDOMEN: Soft, non tender and non distended. No rebound or guarding, and no masses palpated. Bowel Sounds normal. MUSCULOSKELETAL: Chronic venous changes bilateral lower ext NEUROLOGIC EXAM: Awake and alert SKIN: Multiple exfoliative multiple pressure ulcers, detail exam as documented in skin assessment - Constitutional Vitals: Temp Pulse Resp BP Pulse Ox 97.3 F L 61 16 143/72 100 03/26/20 09:13 03/26/20 09:13 03/26/20 09:13 03/26/20 09:13 03/26/20 09:13 General appearance: Present: severe distress HEART Score - HEART Score Troponin: Troponin T 0.047 ng/mL (0.00-0.029) H D 03/16/20 22:25 Results - Labs CBC & Chem 7: 03/27/20 16:00 03/27/20 05:26 Labs: Laboratory Last Values WBC 28.6 K/mm3 (4.5-11.0) H 03/24/20 05:19 RBC 3.57 M/mm3 (3.65-5.03) L 03/24/20 05:19 Hgb 10.7 gm/dl (11.8-15.2) L 03/24/20 05:19 Hct 33.3 % (35.5-45.6) L 03/24/20 05:19 MCV 93 fl (84-94) 03/24/20 05:19 MCH 30 pg (28-32) 03/24/20 05:19 MCHC 32 % (32-34) 03/24/20 05:19 RDW 18.4 % (13.2-15.2) H 03/24/20 05:19 Plt Count 94 K/mm3 (140-440) L 03/24/20 05:19 Lymph % (Auto) 4.0 % (13.4-35.0) L 03/24/20 05:19 [place] % (Auto) 3.2 % (0.0-7.3) 03/24/20 05:19 Eos % (Auto) 0.1 % (0.0-4.3) 03/24/20 05:19 Baso % (Auto) 0.3 % (0.0-1.8) 03/24/20 05:19 Lymph # (Auto) 1.1 K/mm3 (1.2-5.4) L 03/24/20 05:19 [place] # (Auto) 0.9 K/mm3 (0.0-0.8) H 03/24/20 05:19 Eos # (Auto) 0.0 K/mm3 (0.0-0.4) 03/24/20 05:19 Baso # (Auto) 0.1 K/mm3 (0.0-0.1) 03/24/20 05:19 Add Manual Diff Complete 03/23/20 09:35 Total Counted 100 03/23/20 09:35 Seg Neutrophils % Survey Manager 03/24/20 05:19 Seg Neuts % (Manual) 94.0 % (40.0-70.0) H 03/23/20 09:35 Band Neutrophils % 3.0 % 03/23/20 09:35 Lymphocytes % (Manual) 2.0 % (13.4-35.0) L 03/23/20 09:35 Reactive Lymphs % (Man) 0 % 03/23/20 09:35 Monocytes % (Manual) 1.0 % (0.0-7.3) 03/23/20 09:35 Eosinophils % (Manual) 0 % (0.0-4.3) 03/23/20 09:35 Basophils % (Manual) 0 % (0.0-1.8) 03/23/20 09:35 Metamyelocytes % 0 % 03/23/20 09:35 Myelocytes % 0 % 03/23/20 09:35 Promyelocytes % 0 % 03/23/20 09:35 Blast Cells % 0 % 03/23/20 09:35 Nucleated RBC % 1.0 % (0.0-0.9) H 03/23/20 09:35 Seg Neutrophils # 26.4 K/mm3 (1.8-7.7) H 03/24/20 05:19 Seg Neutrophils # Man 25.3 K/mm3 (1.8-7.7) H 03/23/20 09:35 Band Neutrophils # 0.8 K/mm3 03/23/20 09:35 Lymphocytes # (Manual) 0.5 K/mm3 (1.2-5.4) L 03/23/20 09:35 Abs React Lymphs (Man) 0.0 K/mm3 03/23/20 09:35 Monocytes # (Manual) 0.3 K/mm3 (0.0-0.8) 03/23/20 09:35 Eosinophils # (Manual) 0.0 K/mm3 (0.0-0.4) 03/23/20 09:35 Basophils # (Manual) 0.0 K/mm3 (0.0-0.1) 03/23/20 09:35 Metamyelocytes # 0.0 K/mm3 03/23/20 09:35 Myelocytes # 0.0 K/mm3 03/23/20 09:35 Promyelocytes # 0.0 K/mm3 03/23/20 09:35 Blast Cells # 0.0 K/mm3 03/23/20 09:35 Pathologist Review 03/16/20 14:22 WBC Morphology Not Reportable 03/23/20 09:35 Hypersegmented Neuts Not Reportable 03/23/20 09:35 Hyposegmented Neuts Not Reportable 03/23/20 09:35 Hypogranular Neuts Not Reportable 03/23/20 09:35 Smudge Cells Not Reportable 03/23/20 09:35 Toxic Granulation Not Reportable 03/23/20 09:35 Toxic Vacuolation Not Reportable 03/23/20 09:35 Dohle Bodies Not Reportable 03/23/20 09:35 Pelger-Huet Anomaly Not Reportable 03/23/20 09:35 Santiago Rods Not Reportable 03/23/20 09:35 Platelet Estimate Consistent w auto 03/23/20 09:35 Clumped Platelets Not Reportable 03/23/20 09:35 Plt Clumps, EDTA Not Reportable 03/23/20 09:35 Large Platelets Not Reportable 03/23/20 09:35 Giant Platelets Not Reportable 03/23/20 09:35 Platelet Satelliting Not Reportable 03/23/20 09:35 Plt Morphology Comment Not Reportable 03/23/20 09:35 RBC Morphology Not Reportable 03/23/20 09:35 Dimorphic RBCs Not Reportable 03/23/20 09:35 Polychromasia Few 03/23/20 09:35 Hypochromasia 1+ 03/23/20 09:35 Poikilocytosis Few 03/23/20 09:35 Anisocytosis 1+ 03/23/20 09:35 Microcytosis Not Reportable 03/23/20 09:35 Macrocytosis Not Reportable 03/23/20 09:35 Spherocytes Not Reportable 03/23/20 09:35 Pappenheimer Bodies Not Reportable 03/23/20 09:35 Sickle Cells Not Reportable 03/23/20 09:35 Target Cells Not Reportable 03/23/20 09:35 Tear Drop Cells Not Reportable 03/23/20 09:35 Ovalocytes Not Reportable 03/23/20 09:35 Helmet Cells Not Reportable 03/23/20 09:35 [place] Bodies Not Reportable 03/23/20 09:35 [employer] Rings Not Reportable 03/23/20 09:35 [place] Cells Few 03/23/20 09:35 Bite Cells Not Reportable 03/23/20 09:35 Crenated Cell Not Reportable 03/23/20 09:35 Elliptocytes Not Reportable 03/23/20 09:35 Acanthocytes (Spur) Not Reportable 03/23/20 09:35 Rouleaux Not Reportable 03/23/20 09:35 Hemoglobin C Crystals Not Reportable 03/23/20 09:35 Schistocytes Not Reportable 03/23/20 09:35 Malaria parasites Not Reportable 03/23/20 09:35 Isauro Bodies Not Reportable 03/23/20 09:35 Hem Pathologist Commnt No 03/23/20 09:35 PT 14.3 Sec. (12.2-14.9) 03/22/20 16:30 INR 1.09 (0.87-1.13) 03/22/20 16:30 APTT 83.1 Sec. (24.2-36.6) H* 03/25/20 23:40 ABG pH 7.378 pH Units (7.350-7.450) 03/20/20 16:35 POC ABG pCO2 37.3 mmHg (32.0-48.0) 03/18/20 12:14 ABG pCO2 38.6 mm Hg 03/20/20 16:35 POC ABG pO2 67.4 mmHg (83-108) L 03/18/20 12:14 ABG pO2 63.9 mm Hg (80.0-90.0) L 03/20/20 16:35 POC ABG HCO3 14.1 03/18/20 12:14 ABG HCO3 22.2 mmol/L (20.0-26.0) 03/20/20 16:35 ABG O2 Saturation 90.9 % (95.0-99.0) L 03/20/20 16:35 ABG O2 Content 12.0 (0.0-44) 03/20/20 16:35 POC ABG Base Excess -13.0 03/18/20 12:14 ABG Base Excess -2.6 mmol/L (-2.0-3.0) L 03/20/20 16:35 ABG Hemoglobin 9.5 gm/dl (14.0-18.0) L 03/20/20 16:35 ABG Carboxyhemoglobin 1.3 % (0.0-5.0) 03/20/20 16:35 ABG Methemoglobin 0.5 % (0.0-1.5) 03/20/20 16:35 ABG Sodium 138.8 mmol/L (136.0-145.0) 03/18/20 12:14 ABG Potassium 3.3 mmol/L (3.40-4.50) L 03/18/20 12:14 ABG Chloride 112.0 mmol/L (98-107) H 03/18/20 12:14 ABG Glucose 355 mg/dL (65-95) H 03/18/20 12:14 Oxyhemoglobin 89.3 % (95.0-99.0) L 03/20/20 16:35 FiO2 35 % 03/20/20 16:35 Sodium 141 mmol/L (137-145) 03/26/20 06:31 Potassium 3.2 mmol/L (3.6-5.0) L 03/26/20 06:31 Chloride 101.6 mmol/L (98-107) 03/26/20 06:31 Carbon Dioxide 27 mmol/L (22-30) 03/26/20 06:31 Anion Gap 16 mmol/L 03/26/20 06:31 BUN 63 mg/dL (9-20) H 03/26/20 06:31 Creatinine 3.6 mg/dL (0.8-1.3) H 03/26/20 06:31 Estimated GFR 20 ml/min 03/26/20 06:31 BUN/Creatinine Ratio 18 % 03/26/20 06:31 Glucose 82 mg/dL (75-100) 03/26/20 06:31 POC Glucose 75 mg/dL (70-105) 03/26/20 09:01 Lactic Acid 1.80 mmol/L (0.7-2.0) 03/16/20 Unknown Calcium 8.1 mg/dL (8.4-10.2) L 03/26/20 06:31 Phosphorus 5.60 mg/dL (2.5-4.5) H 03/26/20 06:31 Magnesium 1.80 mg/dL (1.7-2.3) 03/24/20 05:19 Total Bilirubin 0.20 mg/dL (0.1-1.2) 03/16/20 14:22 AST 22 units/L (5-40) 03/16/20 14:22 ALT 8 units/L (7-56) 03/16/20 14:22 Alkaline Phosphatase 224 units/L (35-129) H 03/16/20 14:22 Total Creatine Kinase 373 units/L (55-170) H 03/17/20 11:13 Troponin T 0.047 ng/mL (0.00-0.029) H D 03/16/20 22:25 Total Protein 5.4 g/dL (6.3-8.2) L 03/16/20 14:22 Albumin 1.9 g/dL (3.9-5) L 03/16/20 14:22 Albumin/Globulin Ratio 0.5 % 03/16/20 14:22 Triglycerides 107 mg/dL (2-149) 03/16/20 14:23 Cholesterol 95 mg/dL (50-199) 03/16/20 14:23 LDL Cholesterol Direct 35 mg/dL (50-130) L 03/16/20 14:23 HDL Cholesterol 37 mg/dL (40-59) L 03/16/20 14:23 Cholesterol/HDL Ratio 2.56 % 03/16/20 14:23 Procalcitonin 9.59 ng/mL (<0.15) 03/17/20 18:53 Arterial Blood Glucose 355 mg/dL (65-95) H 03/18/20 12:14 Arterial Blood Ionized Calcium 4.5 mg/dL (4.6-5.3) L 03/18/20 12:14 Urine Color Yellow (Yellow) 03/20/20 13:30 Urine Turbidity Turbid (Clear) 03/20/20 13:30 Urine pH 5.0 (5.0-7.0) 03/20/20 13:30 Ur Specific [place] 1.011 (1.003-1.030) 03/20/20 13:30 Urine Protein 100 mg/dl mg/dL (Negative) 03/20/20 13:30 Urine Glucose (UA) Neg mg/dL (Negative) 03/20/20 13:30 Urine Ketones Neg mg/dL (Negative) 03/20/20 13:30 Urine Blood Mod (Negative) 03/20/20 13:30 Urine Nitrite Neg (Negative) 03/20/20 13:30 Urine Bilirubin Neg (Negative) 03/20/20 13:30 Urine Urobilinogen < 2.0 mg/dL (<2.0) 03/20/20 13:30 Ur Leukocyte Esterase Mod (Negative) 03/20/20 13:30 Urine WBC (Auto) 153.0 /HPF (0.0-6.0) H 03/20/20 13:30 Urine RBC (Auto) 130.0 /HPF (0.0-6.0) 03/20/20 13:30 U Epithel Cells (Auto) 1.0 /HPF (0-13.0) 03/20/20 13:30 Urine Bacteria (Auto) 2+ /HPF (Negative) 03/20/20 13:30 Urine WBC Clumps 3+ /HPF 03/17/20 11:40 Urine Mucus Few /HPF 03/20/20 13:30 Urine Yeast (Budding) 3+ /HPF 03/20/20 13:30 Urine Creatinine 139.3 mg/dL (0.1-20.0) H 03/17/20 Unknown Protein/Creatinin Ratio 2.35 03/17/20 Unknown Urine Sodium 53 mmol/L 03/17/20 Unknown Urine Total Protein 328 mg/dL (5-11.8) H 03/17/20 Unknown Random Vancomycin 8.4 ug/mL (0-40.0) 03/18/20 04:40 C. difficile Tox (PCR) Positive (Negative) 03/19/20 23:59 Coronavirus (PCR) Negative (Negative) 03/17/20 09:03 Hepatitis A IgM Ab Non-reactive (NonReactive) 03/20/20 16:00 Hep Bs Antigen Non-reactive (Negative) 03/20/20 16:00 Hep B Core IgM Ab Non-reactive (NonReactive) 03/20/20 16:00 Hepatitis C Antibody Non-reactive (NonReactive) 03/20/20 16:00 Blood Type O POSITIVE 03/21/20 06:43 Antibody Screen Negative 03/21/20 06:43 Crossmatch See Detail 03/21/20 06:43 - Diagnostic Impressions Diagnostic Impressions: Echocardiogram 03/17/20 09:13 Transthoracic Echocardiogram Indication: Cardiogenic Shock BP: 126/62 Conclusions *Global left ventricular systolic function is normal. *Mild to moderate concentric left ventricular hypertrophy is observed. *The estimated ejection fraction is 55-60%. *The right ventricle is severely dilated. *The right ventricular global systolic function is moderately reduced. *Flattened in systole consistent with right ventricular pressure overload. *There is moderate aortic stenosis. *The mean gradient of the aortic valve is 20.93 mmHg. *Moderate aortic leaflet calcification is visualized. *There is mild aortic regurgitation. *There is mild mitral regurgitation. *There is mild tricuspid regurgitation. *The right ventricular systolic pressure is calculated at 46 mmHg. *There is trace pulmonic regurgitation. *A left pleural effusion is present. *There is no pericardial effusion. Findings Procedure Info: The study quality is good. Left Ventricle: The left ventricular chamber size is normal. Mild to moderate concentric left ventricular hypertrophy is observed. Global left ventricular systolic function is normal. The estimated ejection fraction is 55-60%. Abnormal left ventricular diastolic filling is observed, consistent with impaired relaxation. Left Atrium: The left atrium is normal in size with no visual thrombus identified. Right Ventricle: The right ventricle is severely dilated. The right ventricular global systolic function is moderately reduced. Flattened in systole consistent with right ventricular pressure overload. Right Atrium: The right atrium is moderately dilated. Aortic Valve: The aortic valve is trileaflet. Moderate aortic leaflet calcification is visualized. There is mild aortic regurgitation. There is moderate aortic stenosis. The mean gradient of the aortic valve is 20.93 mmHg. The peak instantaneous gradient of the aortic valve is 48.15 mmHg. The aortic valve area, by VTI's, is calculated at 1.191126412434 cm2. Mitral Valve: There is posterior mitral annular calcification. The mitral valve leaflets are mildly thickened. There is mild mitral regurgitation. There is no evidence of mitral stenosis. Tricuspid Valve: There is mild tricuspid regurgitation. The right ventricular systolic pressure is calculated at 46 mmHg. There is no tricuspid stenosis. Pulmonic Valve: The pulmonic valve appears normal. There is trace pulmonic regurgitation. There is no pulmonic stenosis. Pericardium: There is no pericardial effusion. A left pleural effusion is present. Aorta: The aorta appears normal. Pulmonary Artery: The main pulmonary artery appears normal. Venous: The inferior vena cava is dilated. There is less than 50% respiratory change in the inferior vena cava dimension. Measurements Chambers 2D Name Value Normal Range IVSd (2D) 1.24 cm (0.6 - 1.1) LVPWd (2D) 1.28 cm (0.6 - 1.1) LVIDd (2D) 4.39 cm (3.7 - 5.6) LVIDs (2D) 2.74 cm (2 - 3.8) LV FS (2D) 37.56 % - EF Teichholz (2D) 67.84 % - Ao root diameter (2D) 3.09 cm (2 - 3.7) Volumes/Mass Name Value Normal Range LA ESV SP 4CH (A/L) 61.48 ml - LA ESV SP 2CH (A/L) 74.82 ml - LA ESV BP (A/L) 70.19 ml - LA ESV BP (A/L) index 29.49 ml/m2 - LA ESV SP 4CH (MOD) 60.86 ml - LA ESV SP 2CH (MOD) 76.42 ml - LA ESV BP (MOD) 70.33 ml - LA ESV BP (MOD) index 29.55 ml/m2 - LV EDV SP 4CH (MOD) 54.09 ml - LV ESV SP 4CH (MOD) 19.25 ml - EF SP 4CH (MOD) 64.4 % - Diastolic/Systolic Function Name Value Normal Range MV E-wave Vmax 0.67 m/sec - MV deceleration time 137.49 msec - MV A-wave Vmax 0.88 m/sec - MV E:A ratio 0.77 ratio - Aortic Valve Name Value Normal Range AV Vmax 3.23 m/sec - AV VTI 54.14 cm - AV peak gradient 48.15 mmHg - AV mean gradient 20.93 mmHg - LVOT diameter 2.11 cm - LVOT Vmax 0.92 m/sec - LVOT VTI 17.92 cm - LVOT peak gradient 3.42 mmHg - LVOT mean gradient 1.46 mmHg - SV LVOT 62.51 ml - NAVIN (continuity Vmax) 1 cm2 - NAVIN (continuity VTI) 1.15 cm2 - AR PHT 720.82 msec - AR peak gradient 15.53 mmHg - Ascending Ao 3.71 cm - Tricuspid Valve Name Value Normal Range TV E-wave Vmax 0.51 m/sec - TR Vmax 2.8 m/sec - TR peak gradient 31.37 mmHg - RAP 15 mmHg - RVSP 46 mmHg - IVC diameter 2.4 cm (1.2 - 2.3) Pulmonic Valve/Qp:Qs Name Value Normal Range PV Vmax 1.09 m/sec - PV peak gradient 4.78 mmHg - RVOT Vmax 0.7 m/sec - RVOT VTI 13.89 cm - RVOT peak gradient 1.96 mmHg - PV acceleration time 95.15 msec - Cunningham/IV: Voiding Method Indwelling Catheter IV Catheter Type [right wrist] Peripheral IV IV Catheter Type [Right Trilysis Femoral] IV Catheter Type [Right Upper PICC Line arm] IV Catheter Type [Left Upper Mid-line arm] Active Medications - Current Medications Current Medications: Generic Name Dose Route Start Last Admin Trade Name Freq PRN Reason Stop Dose Admin Acetaminophen 650 mg 03/19/20 18:21 03/19/20 18:39 Tylenol FEEDTUBE 650 mg Q6H PRN Administration Pain, Mild (1-3) Albuterol 2.5 mg 03/16/20 17:00 Proventil IH Q3HRT PRN Shortness Of Breath Lipase/Protease/Amylase 1 each 03/17/20 17:12 Pancrescooby [place] 10,500 Unit FEEDTUBE PRN PRN For Clogged Feeding Tube Epoetin Colin 10,000 unit 03/24/20 17:00 Procrit IV DAYLIN IDRIS Famotidine 20 mg 03/18/20 10:00 03/26/20 11:19 Pepcid IV 20 mg DAILY IDRIS Administration Hydromorphone HCl 0.25 mg 03/16/20 17:30 Dilaudid IV Q4H PRN Pain, Moderate (4-6) Hydrophilic Ointment 1 applic 03/21/20 07:50 03/21/20 16:38 Aquaphor TP 1 applic Q12HR PRN Administration DRY SKIN Sodium Chloride 100 mls @ 999 mls/hr 03/20/20 15:38 Nacl 0.9% IV DAYLIN PRN Hypotension Argatroban 250 mg/ Sodium 250 mls @ 14.04 mls/hr 03/22/20 16:00 03/26/20 00:43 Chloride IV 0.5 mcg/kg/min TITR IDRIS 3.51 mls/hr Titration Protocol 2 MCG/KG/MIN Insulin Glargine 20 units 03/18/20 22:00 03/26/20 00:31 Lantus SUB-Q 20 units QHS IDRIS Administration Insulin Human Lispro 0 unit 03/18/20 12:00 03/26/20 05:56 Humalog SUB-Q Not Given Q6HR [facility] Protocol Midodrine 10 mg 03/20/20 12:00 03/26/20 11:19 Proamatine PO 10 mg TID@0800,1200,1600 IDRIS Administration Simple Syrup 15 ml 03/17/20 17:12 Simple Syrup FEEDTUBE PRN PRN Hypoglycemia Simple Syrup 30 ml 03/17/20 17:12 Simple Syrup FEEDTUBE PRN PRN Hypoglycemia Sodium Bicarbonate 325 mg 03/17/20 17:12 Sodium Bicarbonate FEEDTUBE PRN PRN For Clogged Feeding Tube Sodium Chloride 10 ml 03/16/20 22:00 03/26/20 11:19 Sodium Chloride Flush Syringe 10 Ml IV 10 ml BID IDRIS Administration Sodium Chloride 10 ml 03/16/20 17:00 Sodium Chloride Flush Syringe 10 Ml IV PRN PRN LINE FLUSH Vancomycin HCl 250 mg 03/20/20 12:00 03/26/20 05:56 Vancomycin Po PO 04/03/20 06:01 250 mg Q6HR IDRIS Administration Nutrition/Malnutrition Assess - Dietary Evaluation Nutrition/Malnutrition Findings: Nutrition Notes Start: 03/18/20 09:15 Freq: Status: Active Protocol: Document 03/24/20 14:45 EN (Rec: 03/24/20 14:50 EN [email or web address]) Co-Sign 03/24/20 14:45 LM Nutrition Notes Initial or Follow up Brief Note Current Diagnosis Acute Kidney Injury,CKD(stage I-IV),Diabetes,Hypertension Other Pertinent Diagnosis Septic shock, debility, hypothermia, COVID-19 (-) Current Diet pureed diet Subjective/Other Information F/u for diet advancement tolerance and intakes. Spoke with RN who reports setting up lunch at 1pm. Unable to reach RN x2 at 2:45pm to see if pt tolerated lunch. Nutrition Intervention Follow-Up By: 03/27/20 Additional Comments F/u for diet advancement tolerance and intakes
[2020-03-26] MEDS ORDERED: POTASSIUM CHLORIDE 20 MEQ PACKET FEEDTUBE ONE ×2 (13:18→17:00)
--- NOTE | 2020-03-26 14:13 | Event Note ---
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 Can restart Agatroban, if needed, on 03/28/2020. If there is no thromboembolic event that needs to be treated, suggest hematology consult as heparin, and lovenox would be contraindicated by HIT and fondaparinox contraindicated by renal failure. ?low dose Eliquis.
[2020-03-26 14:44] LABS: Creatinine 24 Hour,Urine 0.4 (0.8-2.8); Creatinine,Urine 63.7 mg/dL (0.1-20.0)
--- NOTE | 2020-03-26 16:13 | Progress Note ---
Assessment and Plan Assessment ALEJANDRO likely due to ischemic ATN, now requiring dialysis Metabolic Encephalopathy Severe sepsis with septic Shock Anion Gap Metabolic acidosis Acute hypoxic respiratory failure Severe C. Diff Colitis Recent ESBL Bacteremia Hypokalemia Hypomagnesemia Anemia Exfoliative Rash Bilateral Leg Lymphedema Plan: Labs reviewed No acute indication for HD today HD tomorrow for gentle UF and clearance 24 hr urine creatinine clearance results pending Vascular surgery evaluated pt, planning on perm cath placement on Friday S/p R femoral IJ Vascath by Vascular Surgery and first HD treatment on 03/20/20 Epogen dosing for anemia management Replete potassium Consulted CM for outpatient dialysis placement to [facility] ID evaluated pt, on Abx, recommended removing femoral line, vascular surgery planning on perm cath placement and removal of femoral line on Friday Renally dose medications Strict I&O Documented Intake= 985 ml Output= 100 ml (885 ml) Cunningham Catheter: Yes Renal plan d/w Dr Zambrano Subjective Date of service: 03/26/20 Principal diagnosis: Acute hypoxemic respiratory failure; Septic shock; Ac. encephalopathy; ALEJANDRO Interval history: Pt seen in bed, states he's breathing ok today, no acute distress, no family at bedside Objective - Vital Signs Vital signs: Vital Signs - 12hr 03/26/20 03/26/20 03/26/20 09:13 10:00 13:03 Temperature 97.3 F L 97.7 F Pulse Rate 61 62 64 Respiratory 16 22 Rate Blood Pressure 143/72 143/71 O2 Sat by Pulse 100 96 Oximetry - General Appearance General appearance: other (awake) EENT: ATNC Respiratory: Present: Decreased Breath Sounds Cardiology: S1S2, other (ACCESS: Right femoral Vas Catheter in place) Gastrointestinal: normoactive bowel sounds (round) Integumentary: other (rashes noted throughout body) Neurologic: alert and oriented x3 Musculoskeletal: other (2+ edema to BLE) Psychiatric: cooperative - Lab 03/24/20 05:19 03/26/20 06:31 Most recent lab results ABG pH 7.378 pH Units (7.350-7.450) 03/20/20 16:35 ABG pCO2 38.6 mm Hg 03/20/20 16:35 ABG pO2 63.9 mm Hg (80.0-90.0) L 03/20/20 16:35 ABG HCO3 22.2 mmol/L (20.0-26.0) 03/20/20 16:35 ABG O2 Saturation 90.9 % (95.0-99.0) L 03/20/20 16:35 Calcium 8.1 mg/dL (8.4-10.2) L 03/26/20 06:31 Phosphorus 5.60 mg/dL (2.5-4.5) H 03/26/20 06:31 Magnesium 1.80 mg/dL (1.7-2.3) 03/24/20 05:19 Urine Creatinine 63.7 mg/dL (0.1-20.0) H 03/26/20 14:18 Urine Sodium 53 mmol/L 03/17/20 Unknown Urine Total Protein 328 mg/dL (5-11.8) H 03/17/20 Unknown Medications & Allergies - Medications Allergies/Adverse Reactions: Allergies diclofenac [Diclofenac] Allergy (Verified 10/05/18 08:11) Rash Home Medications: Home Medications Medication Instructions Recorded Confirmed Last Taken Type Acetaminophen [Acetaminophen TAB] 650 mg PO Q4H PRN #1 tablet 02/28/17 03/19/20 Unknown Rx Aspirin [Aspirin BABY CHEW TAB] 81 mg PO DAILY #1 tab.chew 02/28/17 03/19/20 Unknown Rx Ferrous Sulfate [Feosol 325 MG tab] 325 mg PO QDAY #1 tablet 02/28/17 03/19/20 Unknown Rx Gabapentin 300 mg PO Q8HR #1 capsule 02/28/17 03/19/20 Unknown Rx Ondansetron [Zofran INJ] 4 mg IV Q8H PRN #1 vial 02/28/17 03/19/20 Unknown Rx amLODIPine 10 mg PO DAILY #1 tablet 02/28/17 03/19/20 Unknown Rx Ertapenem [INVanz] 1 gm IV QDAY vial 03/10/20 03/19/20 Unknown Rx Active Medications: Generic Name Dose Route Start Last Admin Trade Name Freq PRN Reason Stop Dose Admin Acetaminophen 650 mg 03/19/20 18:21 03/19/20 18:39 Tylenol FEEDTUBE 650 mg Q6H PRN Administration Pain, Mild (1-3) Albuterol 2.5 mg 03/16/20 17:00 Proventil IH Q3HRT PRN Shortness Of Breath Lipase/Protease/Amylase 1 each 03/17/20 17:12 Pancreaze 10,500 Unit FEEDTUBE PRN PRN For Clogged Feeding Tube Epoetin Colin 10,000 unit 03/24/20 17:00 Procrit IV DAYLIN IDRIS Famotidine 20 mg 03/18/20 10:00 03/26/20 11:19 Pepcid IV 20 mg DAILY IDRIS Administration Hydromorphone HCl 0.25 mg 03/16/20 17:30 Dilaudid IV Q4H PRN Pain, Moderate (4-6) Hydrophilic Ointment 1 applic 03/21/20 07:50 03/21/20 16:38 Aquaphor TP 1 applic Q12HR PRN Administration DRY SKIN Sodium Chloride 100 mls @ 999 mls/hr 03/20/20 15:38 Nacl 0.9% IV DAYLIN PRN Hypotension Argatroban 250 mg/ Sodium 250 mls @ 14.04 mls/hr 03/22/20 16:00 03/26/20 15:00 Chloride IV 03/26/20 23:55 1 mcg/kg/min TITR IDRIS 7.02 mls/hr Titration Protocol 2 MCG/KG/MIN Insulin Glargine 20 units 03/18/20 22:00 03/26/20 00:31 Lantus SUB-Q 20 units QHS IDRIS Administration Insulin Human Lispro 0 unit 03/18/20 12:00 03/26/20 05:56 Humalog SUB-Q Not Given Q6HR [facility] Protocol Midodrine 10 mg 03/20/20 12:00 03/26/20 11:19 Proamatine PO 10 mg TID@0800,1200,1600 IDRIS Administration Simple Syrup 15 ml 03/17/20 17:12 Simple Syrup FEEDTUBE PRN PRN Hypoglycemia Simple Syrup 30 ml 03/17/20 17:12 Simple Syrup FEEDTUBE PRN PRN Hypoglycemia Sodium Bicarbonate 325 mg 03/17/20 17:12 Sodium Bicarbonate FEEDTUBE PRN PRN For Clogged Feeding Tube Sodium Chloride 10 ml 03/16/20 22:00 03/26/20 11:19 Sodium Chloride Flush Syringe 10 Ml IV 10 ml BID IDRIS Administration Sodium Chloride 10 ml 03/16/20 17:00 Sodium Chloride Flush Syringe 10 Ml IV PRN PRN LINE FLUSH Vancomycin HCl 250 mg 03/20/20 12:00 03/26/20 05:56 Vancomycin Po PO 04/03/20 06:01 250 mg Q6HR IDRIS Administration
[2020-03-26] MEDS ORDERED: SODIUM CHLORIDE 0.9% 100 ML IV PRN (16:20)
[2020-03-26 16:21] LABS: Heparin-Induced Platelet Antib Negative (Negative); Unfractionated Heparin Negative (Negative)
--- NOTE | 2020-03-26 22:23 | Progress Note ---
Assessment and Plan Patient awake. Weak. Resting on room air. O2 saturation 97%. Recommend Keep O2 2 litres via nasal canula. Patient denies chest pain, shortness of breath or cough. Patient afebrile. Has leukocytosis. Patient is on vancomycin. Chest xray done 03/20/20 reported moderate left pleural effusion with similar bibasilar opacities. No pneumothorax. Obtaining ultrasound of chest. - Patient Problems (1) Sepsis Current Visit: No Status: Acute Plan to address problem: Patient is on Vancomycin. (2) Suspected 2019 novel coronavirus infection Current Visit: No Status: Acute Plan to address problem: Lu virus reported negative. (3) Acute kidney injury (ALEJANDRO) with acute tubular necrosis (ATN) Current Visit: Yes Status: Acute Plan to address problem: Management as per nephrology. (4) History of ESBL E. coli infection Current Visit: Yes Status: Acute Plan to address problem: Management as per infectious diseases. (5) Toxic metabolic encephalopathy Current Visit: Yes Status: Acute Plan to address problem: Management as per primary care. (6) Cellulitis of right leg Current Visit: No Status: Acute Plan to address problem: Patient is on vancimycin. (7) Pleural effusion, left Current Visit: Yes Status: Acute Plan to address problem: Obtaining ultrasound of chest to quantitate pleural effusion. (8) Pulmonary infiltrates on CXR Current Visit: Yes Status: Acute Plan to address problem: Patient is on vancomycin. 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 Subjective Date of service: 03/26/20 Principal diagnosis: Acute hypoxemic respiratory failure; Septic shock; Ac. encephalopathy; ALEJANDRO Interval history: Patient awake. Weak. Resting on room air. O2 saturation 97%. Recommend Keep O2 2 litres via nasal canula. Patient denies chest pain, shortness of breath or cough. Patient afebrile. Has leukocytosis. Patient is on vancomycin. Chest xray done 03/20/20 reported moderate left pleural effusion with similar bibasilar opacities. No pneumothorax. Obtaining ultrasound of chest. Objective Vital Signs - 12hr 03/26/20 03/26/20 13:03 20:00 Temperature 97.7 F 97.3 F L Pulse Rate 64 61 Respiratory 22 20 Rate Blood Pressure 143/71 134/66 O2 Sat by Pulse 96 97 Oximetry Constitutional: no acute distress, alert, appears uncomfortable, other (elderly obese male with mild respiratory effort at rest) Eyes: non-icteric ENT: oropharynx dry Neck: supple, no JVD, other (large neck circumference) Effort: mildly labored Ascultation: Bilateral: diminished breath sounds, rhonchi Percussion: Bilateral: not dull Cardiovascular: other (S1,S2, Tachycardia, hypotension on Vasopressor) Gastrointestinal: normoactive bowel sounds, soft, non-tender, non-distended (protuberant) Integumentary: rash (Generalized skin flaking/with superficial skin sloughing without erythema or warmth on chest wall), decubitus ulcer (see RN/WCN notes for details) Extremities: pulses normal, cool, other (Patient has stasis dermatitis and wounds on both legs.) Neurologic: non-focal exam (grossly), pupils equal and round, CN II-XII normal Psychiatric: other (flat affect to depressed at times) CBC and BMP: 03/24/20 05:19 03/26/20 06:31 ABG, PT/INR, D-dimer: ABG ABG pH 7.378 pH Units (7.350-7.450) 03/20/20 16:35 POC ABG pCO2 37.3 mmHg (32.0-48.0) 03/18/20 12:14 ABG pCO2 38.6 mm Hg 03/20/20 16:35 POC ABG pO2 67.4 mmHg (83-108) L 03/18/20 12:14 ABG pO2 63.9 mm Hg (80.0-90.0) L 03/20/20 16:35 POC ABG HCO3 14.1 03/18/20 12:14 ABG O2 Saturation 90.9 % (95.0-99.0) L 03/20/20 16:35 PT/INR, D-dimer PT 14.3 Sec. (12.2-14.9) 03/22/20 16:30 INR 1.09 (0.87-1.13) 03/22/20 16:30 Abnormal lab findings: Abnormal Labs 03/16/20 03/16/20 03/16/20 14:22 14:22 14:23 WBC 32.2 H RBC 2.93 L Hgb 8.9 L Hct 28.2 L MCV 96 H MCHC RDW 18.1 H Plt Count Lymph % (Auto) Lymph # (Auto) [place] # (Auto) Seg Neuts % (Manual) 82.0 H Lymphocytes % (Manual) 10.0 L Nucleated RBC % 3.0 H Seg Neutrophils # Seg Neutrophils # Man 26.4 H Lymphocytes # (Manual) Monocytes # (Manual) 1.9 H PT INR APTT ABG pH POC ABG pO2 ABG pO2 ABG HCO3 ABG O2 Saturation ABG Base Excess ABG Hemoglobin ABG Potassium ABG Chloride ABG Glucose Oxyhemoglobin Sodium Potassium 3.3 L Chloride 108.9 H Carbon Dioxide 12 L BUN 59 H Creatinine 5.9 H Glucose 142 H POC Glucose Calcium 7.7 L Phosphorus Magnesium Alkaline Phosphatase 224 H Total Creatine Kinase Troponin T 0.033 H Total Protein 5.4 L Albumin 1.9 L LDL Cholesterol Direct 35 L HDL Cholesterol 37 L Arterial Blood Glucose Arterial Blood Ionized Calcium Urine WBC (Auto) Urine Creatinine Ur Creatinine 24 Hour Urine Total Protein Crossmatch 03/16/20 03/16/20 03/16/20 14:27 19:50 21:15 WBC RBC Hgb Hct MCV MCHC RDW Plt Count Lymph % (Auto) Lymph # (Auto) [place] # (Auto) Seg Neuts % (Manual) Lymphocytes % (Manual) Nucleated RBC % Seg Neutrophils # Seg Neutrophils # Man Lymphocytes # (Manual) Monocytes # (Manual) PT 17.2 H INR 1.37 H APTT 51.3 H ABG pH POC ABG pO2 ABG pO2 ABG HCO3 ABG O2 Saturation ABG Base Excess ABG Hemoglobin ABG Potassium ABG Chloride ABG Glucose Oxyhemoglobin Sodium Potassium Chloride Carbon Dioxide BUN Creatinine Glucose POC Glucose Calcium Phosphorus Magnesium Alkaline Phosphatase Total Creatine Kinase Troponin T 0.031 H Total Protein Albumin LDL Cholesterol Direct HDL Cholesterol Arterial Blood Glucose Arterial Blood Ionized Calcium Urine WBC (Auto) > 182.0 H Urine Creatinine Ur Creatinine 24 Hour Urine Total Protein Crossmatch 03/16/20 03/17/20 03/17/20 22:25 11:13 11:13 WBC 34.4 H RBC 2.60 L Hgb 7.8 L Hct 25.2 L MCV 97 H MCHC 31 L RDW 18.7 H Plt Count Lymph % (Auto) Lymph # (Auto) [place] # (Auto) Seg Neuts % (Manual) 88.0 H Lymphocytes % (Manual) 1.0 L Nucleated RBC % 13.0 H Seg Neutrophils # Seg Neutrophils # Man 30.3 H Lymphocytes # (Manual) 0.3 L Monocytes # (Manual) PT INR APTT ABG pH POC ABG pO2 ABG pO2 ABG HCO3 ABG O2 Saturation ABG Base Excess ABG Hemoglobin ABG Potassium ABG Chloride ABG Glucose Oxyhemoglobin Sodium Potassium 3.3 L Chloride 108.5 H Carbon Dioxide 16 L BUN 57 H Creatinine 5.5 H Glucose 325 H POC Glucose Calcium 7.0 L Phosphorus Magnesium Alkaline Phosphatase Total Creatine Kinase Troponin T 0.047 H D Total Protein Albumin LDL Cholesterol Direct HDL Cholesterol Arterial Blood Glucose Arterial Blood Ionized Calcium Urine WBC (Auto) Urine Creatinine Ur Creatinine 24 Hour Urine Total Protein Crossmatch 03/17/20 03/17/20 03/17/20 11:13 11:40 Unknown WBC RBC Hgb Hct MCV MCHC RDW Plt Count Lymph % (Auto) Lymph # (Auto) [place] # (Auto) Seg Neuts % (Manual) Lymphocytes % (Manual) Nucleated RBC % Seg Neutrophils # Seg Neutrophils # Man Lymphocytes # (Manual) Monocytes # (Manual) PT INR APTT ABG pH 7.229 L POC ABG pO2 ABG pO2 98.3 H ABG HCO3 14.6 L ABG O2 Saturation ABG Base Excess -12.0 L ABG Hemoglobin 8.9 L ABG Potassium ABG Chloride ABG Glucose Oxyhemoglobin Sodium Potassium Chloride Carbon Dioxide BUN Creatinine Glucose POC Glucose Calcium Phosphorus Magnesium Alkaline Phosphatase Total Creatine Kinase 373 H Troponin T Total Protein Albumin LDL Cholesterol Direct HDL Cholesterol Arterial Blood Glucose Arterial Blood Ionized Calcium Urine WBC (Auto) > 182.0 H Urine Creatinine Ur Creatinine 24 Hour Urine Total Protein Crossmatch 03/17/20 03/18/20 03/18/20 Unknown 04:40 04:40 WBC 32.0 H RBC 2.56 L Hgb 7.9 L Hct 24.7 L MCV 96 H MCHC RDW 18.2 H Plt Count Lymph % (Auto) Lymph # (Auto) [place] # (Auto) Seg Neuts % (Manual) Lymphocytes % (Manual) Nucleated RBC % Seg Neutrophils # Seg Neutrophils # Man Lymphocytes # (Manual) Monocytes # (Manual) PT INR APTT ABG pH POC ABG pO2 ABG pO2 ABG HCO3 ABG O2 Saturation ABG Base Excess ABG Hemoglobin ABG Potassium ABG Chloride ABG Glucose Oxyhemoglobin Sodium Potassium 2.7 L* Chloride 111.8 H Carbon Dioxide 12 L BUN 56 H Creatinine 4.6 H Glucose 347 H POC Glucose Calcium 6.7 L Phosphorus 5.40 H Magnesium Alkaline Phosphatase Total Creatine Kinase Troponin T Total Protein Albumin LDL Cholesterol Direct HDL Cholesterol Arterial Blood Glucose Arterial Blood Ionized Calcium Urine WBC (Auto) Urine Creatinine 139.3 H Ur Creatinine 24 Hour Urine Total Protein 328 H Crossmatch 03/18/20 03/18/20 03/18/20 04:40 04:48 12:14 WBC RBC Hgb Hct MCV MCHC RDW Plt Count Lymph % (Auto) Lymph # (Auto) [place] # (Auto) Seg Neuts % (Manual) Lymphocytes % (Manual) Nucleated RBC % Seg Neutrophils # Seg Neutrophils # Man Lymphocytes # (Manual) Monocytes # (Manual) PT INR APTT ABG pH 7.230 L 7.196 L POC ABG pO2 67.4 L ABG pO2 91.6 H ABG HCO3 13.7 L ABG O2 Saturation ABG Base Excess -12.8 L ABG Hemoglobin 9.2 L 9.9 L ABG Potassium 3.3 L ABG Chloride 112.0 H ABG Glucose 355 H Oxyhemoglobin 94.8 L Sodium Potassium Chloride Carbon Dioxide BUN Creatinine Glucose POC Glucose Calcium Phosphorus Magnesium 1.40 L Alkaline Phosphatase Total Creatine Kinase Troponin T Total Protein Albumin LDL Cholesterol Direct HDL Cholesterol Arterial Blood Glucose 355 H Arterial Blood Ionized Calcium 4.5 L Urine WBC (Auto) Urine Creatinine Ur Creatinine 24 Hour Urine Total Protein Crossmatch 03/18/20 03/18/20 03/18/20 13:17 13:32 19:15 WBC RBC Hgb Hct MCV MCHC RDW Plt Count Lymph % (Auto) Lymph # (Auto) [place] # (Auto) Seg Neuts % (Manual) Lymphocytes % (Manual) Nucleated RBC % Seg Neutrophils # Seg Neutrophils # Man Lymphocytes # (Manual) Monocytes # (Manual) PT INR APTT ABG pH POC ABG pO2 ABG pO2 ABG HCO3 ABG O2 Saturation ABG Base Excess ABG Hemoglobin ABG Potassium ABG Chloride ABG Glucose Oxyhemoglobin Sodium Potassium 3.0 L 3.4 L Chloride 107.2 H Carbon Dioxide 14 L 13 L BUN 59 H 67 H Creatinine 4.8 H 5.1 H Glucose 341 H 371 H POC Glucose 394 H Calcium 7.0 L 7.8 L Phosphorus Magnesium Alkaline Phosphatase Total Creatine Kinase Troponin T Total Protein Albumin LDL Cholesterol Direct HDL Cholesterol Arterial Blood Glucose Arterial Blood Ionized Calcium Urine WBC (Auto) Urine Creatinine Ur Creatinine 24 Hour Urine Total Protein Crossmatch 03/18/20 03/18/20 03/19/20 19:21 23:00 01:32 EST WBC RBC Hgb Hct MCV MCHC RDW Plt Count Lymph % (Auto) Lymph # (Auto) [place] # (Auto) Seg Neuts % (Manual) Lymphocytes % (Manual) Nucleated RBC % Seg Neutrophils # Seg Neutrophils # Man Lymphocytes # (Manual) Monocytes # (Manual) PT INR APTT ABG pH POC ABG pO2 ABG pO2 ABG HCO3 ABG O2 Saturation ABG Base Excess ABG Hemoglobin ABG Potassium ABG Chloride ABG Glucose Oxyhemoglobin Sodium Potassium Chloride Carbon Dioxide BUN Creatinine Glucose POC Glucose 453 H 360 H 338 H Calcium Phosphorus Magnesium Alkaline Phosphatase Total Creatine Kinase Troponin T Total Protein Albumin LDL Cholesterol Direct HDL Cholesterol Arterial Blood Glucose Arterial Blood Ionized Calcium Urine WBC (Auto) Urine Creatinine Ur Creatinine 24 Hour Urine Total Protein Crossmatch 03/19/20 03/19/20 03/19/20 04:10 05:10 05:10 WBC 25.8 H RBC 3.61 L Hgb 10.9 L D Hct MCV 100 H MCHC 30 L RDW 19.1 H Plt Count Lymph % (Auto) Lymph # (Auto) [place] # (Auto) Seg Neuts % (Manual) Lymphocytes % (Manual) Nucleated RBC % Seg Neutrophils # Seg Neutrophils # Man Lymphocytes # (Manual) Monocytes # (Manual) PT INR APTT ABG pH 7.309 L POC ABG pO2 ABG pO2 69.4 L ABG HCO3 17.9 L ABG O2 Saturation 92.4 L ABG Base Excess -7.6 L ABG Hemoglobin 8.1 L ABG Potassium ABG Chloride ABG Glucose Oxyhemoglobin 90.8 L Sodium Potassium Chloride Carbon Dioxide BUN Creatinine Glucose POC Glucose Calcium Phosphorus 5.60 H Magnesium Alkaline Phosphatase Total Creatine Kinase Troponin T Total Protein Albumin LDL Cholesterol Direct HDL Cholesterol Arterial Blood Glucose Arterial Blood Ionized Calcium Urine WBC (Auto) Urine Creatinine Ur Creatinine 24 Hour Urine Total Protein Crossmatch 03/19/20 03/19/20 03/19/20 10:00 11:22 Unknown WBC RBC Hgb Hct MCV MCHC RDW Plt Count Lymph % (Auto) Lymph # (Auto) [place] # (Auto) Seg Neuts % (Manual) Lymphocytes % (Manual) Nucleated RBC % Seg Neutrophils # Seg Neutrophils # Man Lymphocytes # (Manual) Monocytes # (Manual) PT 15.3 H INR 1.18 H APTT ABG pH POC ABG pO2 ABG pO2 ABG HCO3 ABG O2 Saturation ABG Base Excess ABG Hemoglobin ABG Potassium ABG Chloride ABG Glucose Oxyhemoglobin Sodium Potassium 3.0 L Chloride Carbon Dioxide BUN 69 H Creatinine 5.4 H Glucose 250 H POC Glucose 274 H Calcium 7.9 L Phosphorus Magnesium Alkaline Phosphatase Total Creatine Kinase Troponin T Total Protein Albumin LDL Cholesterol Direct HDL Cholesterol Arterial Blood Glucose Arterial Blood Ionized Calcium Urine WBC (Auto) Urine Creatinine Ur Creatinine 24 Hour Urine Total Protein Crossmatch 03/20/20 03/20/20 03/20/20 01:56 05:22 06:35 WBC 27.5 H RBC 2.57 L Hgb 7.9 L D Hct 23.3 L D MCV MCHC RDW 17.7 H Plt Count Lymph % (Auto) Lymph # (Auto) [place] # (Auto) Seg Neuts % (Manual) Lymphocytes % (Manual) Nucleated RBC % Seg Neutrophils # Seg Neutrophils # Man Lymphocytes # (Manual) Monocytes # (Manual) PT INR APTT ABG pH POC ABG pO2 ABG pO2 ABG HCO3 ABG O2 Saturation ABG Base Excess ABG Hemoglobin ABG Potassium ABG Chloride ABG Glucose Oxyhemoglobin Sodium Potassium Chloride Carbon Dioxide BUN Creatinine Glucose POC Glucose 145 H 181 H Calcium Phosphorus Magnesium Alkaline Phosphatase Total Creatine Kinase Troponin T Total Protein Albumin LDL Cholesterol Direct HDL Cholesterol Arterial Blood Glucose Arterial Blood Ionized Calcium Urine WBC (Auto) Urine Creatinine Ur Creatinine 24 Hour Urine Total Protein Crossmatch 03/20/20 03/20/20 03/20/20 06:35 12:10 13:30 WBC RBC Hgb Hct MCV MCHC RDW Plt Count Lymph % (Auto) Lymph # (Auto) [place] # (Auto) Seg Neuts % (Manual) Lymphocytes % (Manual) Nucleated RBC % Seg Neutrophils # Seg Neutrophils # Man Lymphocytes # (Manual) Monocytes # (Manual) PT INR APTT ABG pH POC ABG pO2 ABG pO2 ABG HCO3 ABG O2 Saturation ABG Base Excess ABG Hemoglobin ABG Potassium ABG Chloride ABG Glucose Oxyhemoglobin Sodium Potassium 2.9 L* Chloride Carbon Dioxide BUN 69 H Creatinine 5.1 H Glucose 146 H POC Glucose 164 H Calcium 8.2 L Phosphorus 5.40 H Magnesium Alkaline Phosphatase Total Creatine Kinase Troponin T Total Protein Albumin LDL Cholesterol Direct HDL Cholesterol Arterial Blood Glucose Arterial Blood Ionized Calcium Urine WBC (Auto) 153.0 H Urine Creatinine Ur Creatinine 24 Hour Urine Total Protein Crossmatch 03/20/20 03/20/20 03/20/20 16:00 16:35 17:23 WBC RBC Hgb Hct MCV MCHC RDW Plt Count Lymph % (Auto) Lymph # (Auto) [place] # (Auto) Seg Neuts % (Manual) Lymphocytes % (Manual) Nucleated RBC % Seg Neutrophils # Seg Neutrophils # Man Lymphocytes # (Manual) Monocytes # (Manual) PT INR APTT ABG pH POC ABG pO2 ABG pO2 63.9 L ABG HCO3 ABG O2 Saturation 90.9 L ABG Base Excess -2.6 L ABG Hemoglobin 9.5 L ABG Potassium ABG Chloride ABG Glucose Oxyhemoglobin 89.3 L Sodium 146 H Potassium 3.3 L Chloride Carbon Dioxide BUN 72 H Creatinine 5.1 H Glucose 150 H POC Glucose 191 H Calcium 8.2 L Phosphorus Magnesium Alkaline Phosphatase Total Creatine Kinase Troponin T Total Protein Albumin LDL Cholesterol Direct HDL Cholesterol Arterial Blood Glucose Arterial Blood Ionized Calcium Urine WBC (Auto) Urine Creatinine Ur Creatinine 24 Hour Urine Total Protein Crossmatch 03/21/20 03/21/20 03/21/20 00:48 03:55 03:55 WBC 22.4 H RBC 2.06 L Hgb 6.3 L Hct 19.2 L* MCV MCHC RDW 17.7 H Plt Count 86 L Lymph % (Auto) Lymph # (Auto) [place] # (Auto) Seg Neuts % (Manual) Lymphocytes % (Manual) Nucleated RBC % Seg Neutrophils # Seg Neutrophils # Man Lymphocytes # (Manual) Monocytes # (Manual) PT INR APTT ABG pH POC ABG pO2 ABG pO2 ABG HCO3 ABG O2 Saturation ABG Base Excess ABG Hemoglobin ABG Potassium ABG Chloride ABG Glucose Oxyhemoglobin Sodium 148 H Potassium 2.8 L* Chloride 108.2 H Carbon Dioxide BUN 52 H Creatinine 3.8 H Glucose 130 H POC Glucose 158 H Calcium 7.6 L Phosphorus Magnesium Alkaline Phosphatase Total Creatine Kinase Troponin T Total Protein Albumin LDL Cholesterol Direct HDL Cholesterol Arterial Blood Glucose Arterial Blood Ionized Calcium Urine WBC (Auto) Urine Creatinine Ur Creatinine 24 Hour Urine Total Protein Crossmatch 03/21/20 03/21/20 03/21/20 05:37 06:43 09:15 WBC RBC Hgb Hct MCV MCHC RDW Plt Count Lymph % (Auto) Lymph # (Auto) [place] # (Auto) Seg Neuts % (Manual) Lymphocytes % (Manual) Nucleated RBC % Seg Neutrophils # Seg Neutrophils # Man Lymphocytes # (Manual) Monocytes # (Manual) PT INR APTT ABG pH POC ABG pO2 ABG pO2 ABG HCO3 ABG O2 Saturation ABG Base Excess ABG Hemoglobin ABG Potassium ABG Chloride ABG Glucose Oxyhemoglobin Sodium Potassium 3.5 L D Chloride Carbon Dioxide BUN 56 H Creatinine 4.3 H Glucose 104 H POC Glucose 159 H Calcium Phosphorus Magnesium Alkaline Phosphatase Total Creatine Kinase Troponin T Total Protein Albumin LDL Cholesterol Direct HDL Cholesterol Arterial Blood Glucose Arterial Blood Ionized Calcium Urine WBC (Auto) Urine Creatinine Ur Creatinine 24 Hour Urine Total Protein Crossmatch See Detail 03/21/20 03/21/20 03/22/20 12:55 17:26 00:16 WBC RBC Hgb Hct MCV MCHC RDW Plt Count Lymph % (Auto) Lymph # (Auto) [place] # (Auto) Seg Neuts % (Manual) Lymphocytes % (Manual) Nucleated RBC % Seg Neutrophils # Seg Neutrophils # Man Lymphocytes # (Manual) Monocytes # (Manual) PT INR APTT ABG pH POC ABG pO2 ABG pO2 ABG HCO3 ABG O2 Saturation ABG Base Excess ABG Hemoglobin ABG Potassium ABG Chloride ABG Glucose Oxyhemoglobin Sodium Potassium Chloride Carbon Dioxide BUN Creatinine Glucose POC Glucose 157 H 128 H 148 H Calcium Phosphorus Magnesium Alkaline Phosphatase Total Creatine Kinase Troponin T Total Protein Albumin LDL Cholesterol Direct HDL Cholesterol Arterial Blood Glucose Arterial Blood Ionized Calcium Urine WBC (Auto) Urine Creatinine Ur Creatinine 24 Hour Urine Total Protein Crossmatch 03/22/20 03/22/20 03/22/20 04:00 04:43 05:00 WBC 26.2 H RBC 3.16 L Hgb 9.6 L D Hct 29.1 L D MCV MCHC RDW 18.2 H Plt Count 86 L Lymph % (Auto) Lymph # (Auto) [place] # (Auto) Seg Neuts % (Manual) Lymphocytes % (Manual) Nucleated RBC % Seg Neutrophils # Seg Neutrophils # Man Lymphocytes # (Manual) Monocytes # (Manual) PT INR APTT ABG pH POC ABG pO2 ABG pO2 ABG HCO3 ABG O2 Saturation ABG Base Excess ABG Hemoglobin ABG Potassium ABG Chloride ABG Glucose Oxyhemoglobin Sodium Potassium 3.5 L Chloride Carbon Dioxide BUN 47 H Creatinine 3.3 H Glucose 171 H POC Glucose Calcium 8.3 L Phosphorus Magnesium 1.60 L Alkaline Phosphatase Total Creatine Kinase Troponin T Total Protein Albumin LDL Cholesterol Direct HDL Cholesterol Arterial Blood Glucose Arterial Blood Ionized Calcium Urine WBC (Auto) Urine Creatinine Ur Creatinine 24 Hour Urine Total Protein Crossmatch 03/22/20 03/22/20 03/22/20 05:41 12:18 17:29 WBC RBC Hgb Hct MCV MCHC RDW Plt Count Lymph % (Auto) Lymph # (Auto) [place] # (Auto) Seg Neuts % (Manual) Lymphocytes % (Manual) Nucleated RBC % Seg Neutrophils # Seg Neutrophils # Man Lymphocytes # (Manual) Monocytes # (Manual) PT INR APTT ABG pH POC ABG pO2 ABG pO2 ABG HCO3 ABG O2 Saturation ABG Base Excess ABG Hemoglobin ABG Potassium ABG Chloride ABG Glucose Oxyhemoglobin Sodium Potassium Chloride Carbon Dioxide BUN Creatinine Glucose POC Glucose 183 H 129 H 184 H Calcium Phosphorus Magnesium Alkaline Phosphatase Total Creatine Kinase Troponin T Total Protein Albumin LDL Cholesterol Direct HDL Cholesterol Arterial Blood Glucose Arterial Blood Ionized Calcium Urine WBC (Auto) Urine Creatinine Ur Creatinine 24 Hour Urine Total Protein Crossmatch 03/22/20 03/23/20 03/23/20 19:13 00:22 06:09 WBC RBC Hgb Hct MCV MCHC RDW Plt Count Lymph % (Auto) Lymph # (Auto) [place] # (Auto) Seg Neuts % (Manual) Lymphocytes % (Manual) Nucleated RBC % Seg Neutrophils # Seg Neutrophils # Man Lymphocytes # (Manual) Monocytes # (Manual) PT INR APTT 91.0 H* ABG pH POC ABG pO2 ABG pO2 ABG HCO3 ABG O2 Saturation ABG Base Excess ABG Hemoglobin ABG Potassium ABG Chloride ABG Glucose Oxyhemoglobin Sodium Potassium Chloride Carbon Dioxide BUN Creatinine Glucose POC Glucose 159 H 166 H Calcium Phosphorus Magnesium Alkaline Phosphatase Total Creatine Kinase Troponin T Total Protein Albumin LDL Cholesterol Direct HDL Cholesterol Arterial Blood Glucose Arterial Blood Ionized Calcium Urine WBC (Auto) Urine Creatinine Ur Creatinine 24 Hour Urine Total Protein Crossmatch 03/23/20 03/23/20 03/23/20 09:35 09:35 09:35 WBC 26.9 H RBC 3.60 L Hgb 10.7 L Hct 32.7 L MCV MCHC RDW 18.9 H Plt Count 98 L Lymph % (Auto) Lymph # (Auto) [place] # (Auto) Seg Neuts % (Manual) 94.0 H Lymphocytes % (Manual) 2.0 L Nucleated RBC % 1.0 H Seg Neutrophils # Seg Neutrophils # Man 25.3 H Lymphocytes # (Manual) 0.5 L Monocytes # (Manual) PT INR APTT ABG pH POC ABG pO2 ABG pO2 ABG HCO3 ABG O2 Saturation ABG Base Excess ABG Hemoglobin ABG Potassium ABG Chloride ABG Glucose Oxyhemoglobin Sodium Potassium 3.5 L Chloride Carbon Dioxide BUN 61 H Creatinine 3.7 H Glucose 148 H POC Glucose Calcium Phosphorus 4.90 H D Magnesium Alkaline Phosphatase Total Creatine Kinase Troponin T Total Protein Albumin LDL Cholesterol Direct HDL Cholesterol Arterial Blood Glucose Arterial Blood Ionized Calcium Urine WBC (Auto) Urine Creatinine Ur Creatinine 24 Hour Urine Total Protein Crossmatch 03/23/20 03/23/20 03/23/20 09:35 11:56 17:07 WBC RBC Hgb Hct MCV MCHC RDW Plt Count Lymph % (Auto) Lymph # (Auto) [place] # (Auto) Seg Neuts % (Manual) Lymphocytes % (Manual) Nucleated RBC % Seg Neutrophils # Seg Neutrophils # Man Lymphocytes # (Manual) Monocytes # (Manual) PT INR APTT 115.2 H* 74.5 H* ABG pH POC ABG pO2 ABG pO2 ABG HCO3 ABG O2 Saturation ABG Base Excess ABG Hemoglobin ABG Potassium ABG Chloride ABG Glucose Oxyhemoglobin Sodium Potassium Chloride Carbon Dioxide BUN Creatinine Glucose POC Glucose 159 H Calcium Phosphorus Magnesium Alkaline Phosphatase Total Creatine Kinase Troponin T Total Protein Albumin LDL Cholesterol Direct HDL Cholesterol Arterial Blood Glucose Arterial Blood Ionized Calcium Urine WBC (Auto) Urine Creatinine Ur Creatinine 24 Hour Urine Total Protein Crossmatch 03/23/20 03/23/20 03/23/20 17:34 21:45 22:24 WBC RBC Hgb Hct MCV MCHC RDW Plt Count Lymph % (Auto) Lymph # (Auto) [place] # (Auto) Seg Neuts % (Manual) Lymphocytes % (Manual) Nucleated RBC % Seg Neutrophils # Seg Neutrophils # Man Lymphocytes # (Manual) Monocytes # (Manual) PT INR APTT 112.5 H* ABG pH POC ABG pO2 ABG pO2 ABG HCO3 ABG O2 Saturation ABG Base Excess ABG Hemoglobin ABG Potassium ABG Chloride ABG Glucose Oxyhemoglobin Sodium Potassium Chloride Carbon Dioxide BUN Creatinine Glucose POC Glucose 217 H 160 H Calcium Phosphorus Magnesium Alkaline Phosphatase Total Creatine Kinase Troponin T Total Protein Albumin LDL Cholesterol Direct HDL Cholesterol Arterial Blood Glucose Arterial Blood Ionized Calcium Urine WBC (Auto) Urine Creatinine Ur Creatinine 24 Hour Urine Total Protein Crossmatch 03/24/20 03/24/20 03/24/20 01:13 05:19 05:19 WBC 28.6 H RBC 3.57 L Hgb 10.7 L Hct 33.3 L MCV MCHC RDW 18.4 H Plt Count 94 L Lymph % (Auto) 4.0 L Lymph # (Auto) 1.1 L [place] # (Auto) 0.9 H Seg Neuts % (Manual) Lymphocytes % (Manual) Nucleated RBC % Seg Neutrophils # 26.4 H Seg Neutrophils # Man Lymphocytes # (Manual) Monocytes # (Manual) PT INR APTT ABG pH POC ABG pO2 ABG pO2 ABG HCO3 ABG O2 Saturation ABG Base Excess ABG Hemoglobin ABG Potassium ABG Chloride ABG Glucose Oxyhemoglobin Sodium 146 H Potassium 3.5 L Chloride Carbon Dioxide BUN 71 H Creatinine 3.9 H Glucose 141 H POC Glucose 186 H Calcium 8.3 L Phosphorus 5.80 H Magnesium Alkaline Phosphatase Total Creatine Kinase Troponin T Total Protein Albumin LDL Cholesterol Direct HDL Cholesterol Arterial Blood Glucose Arterial Blood Ionized Calcium Urine WBC (Auto) Urine Creatinine Ur Creatinine 24 Hour Urine Total Protein Crossmatch 03/24/20 03/24/20 03/24/20 05:19 06:35 12:24 WBC RBC Hgb Hct MCV MCHC RDW Plt Count Lymph % (Auto) Lymph # (Auto) [place] # (Auto) Seg Neuts % (Manual) Lymphocytes % (Manual) Nucleated RBC % Seg Neutrophils # Seg Neutrophils # Man Lymphocytes # (Manual) Monocytes # (Manual) PT INR APTT 91.5 H* ABG pH POC ABG pO2 ABG pO2 ABG HCO3 ABG O2 Saturation ABG Base Excess ABG Hemoglobin ABG Potassium ABG Chloride ABG Glucose Oxyhemoglobin Sodium Potassium Chloride Carbon Dioxide BUN Creatinine Glucose POC Glucose 153 H 162 H Calcium Phosphorus Magnesium Alkaline Phosphatase Total Creatine Kinase Troponin T Total Protein Albumin LDL Cholesterol Direct HDL Cholesterol Arterial Blood Glucose Arterial Blood Ionized Calcium Urine WBC (Auto) Urine Creatinine Ur Creatinine 24 Hour Urine Total Protein Crossmatch 03/24/20 03/24/20 03/25/20 19:50 23:56 05:11 WBC RBC Hgb Hct MCV MCHC RDW Plt Count Lymph % (Auto) Lymph # (Auto) Brantley # (Auto) Seg Neuts % (Manual) Lymphocytes % (Manual) Nucleated RBC % Seg Neutrophils # Seg Neutrophils # Man Lymphocytes # (Manual) Monocytes # (Manual) PT INR APTT 75.3 H* ABG pH POC ABG pO2 ABG pO2 ABG HCO3 ABG O2 Saturation ABG Base Excess ABG Hemoglobin ABG Potassium ABG Chloride ABG Glucose Oxyhemoglobin Sodium Potassium Chloride Carbon Dioxide BUN Creatinine Glucose POC Glucose 193 H 139 H Calcium Phosphorus Magnesium Alkaline Phosphatase Total Creatine Kinase Troponin T Total Protein Albumin LDL Cholesterol Direct HDL Cholesterol Arterial Blood Glucose Arterial Blood Ionized Calcium Urine WBC (Auto) Urine Creatinine Ur Creatinine 24 Hour Urine Total Protein Crossmatch 03/25/20 03/25/20 03/25/20 06:25 15:39 15:55 WBC RBC Hgb Hct MCV MCHC RDW Plt Count Lymph % (Auto) Lymph # (Auto) Brantley # (Auto) Seg Neuts % (Manual) Lymphocytes % (Manual) Nucleated RBC % Seg Neutrophils # Seg Neutrophils # Man Lymphocytes # (Manual) Monocytes # (Manual) PT INR APTT 79.3 H* ABG pH POC ABG pO2 ABG pO2 ABG HCO3 ABG O2 Saturation ABG Base Excess ABG Hemoglobin ABG Potassium ABG Chloride ABG Glucose Oxyhemoglobin Sodium Potassium Chloride Carbon Dioxide BUN 54 H Creatinine 3.1 H Glucose 112 H POC Glucose 111 H Calcium 8.3 L Phosphorus 4.90 H Magnesium Alkaline Phosphatase Total Creatine Kinase Troponin T Total Protein Albumin LDL Cholesterol Direct HDL Cholesterol Arterial Blood Glucose Arterial Blood Ionized Calcium Urine WBC (Auto) Urine Creatinine Ur Creatinine 24 Hour Urine Total Protein Crossmatch 03/25/20 03/26/20 03/26/20 23:40 00:32 06:31 WBC RBC Hgb Hct MCV MCHC RDW Plt Count Lymph % (Auto) Lymph # (Auto) Brantley # (Auto) Seg Neuts % (Manual) Lymphocytes % (Manual) Nucleated RBC % Seg Neutrophils # Seg Neutrophils # Man Lymphocytes # (Manual) Monocytes # (Manual) PT INR APTT 83.1 H* ABG pH POC ABG pO2 ABG pO2 ABG HCO3 ABG O2 Saturation ABG Base Excess ABG Hemoglobin ABG Potassium ABG Chloride ABG Glucose Oxyhemoglobin Sodium Potassium 3.2 L Chloride Carbon Dioxide BUN 63 H Creatinine 3.6 H Glucose POC Glucose 115 H Calcium 8.1 L Phosphorus 5.60 H Magnesium Alkaline Phosphatase Total Creatine Kinase Troponin T Total Protein Albumin LDL Cholesterol Direct HDL Cholesterol Arterial Blood Glucose Arterial Blood Ionized Calcium Urine WBC (Auto) Urine Creatinine Ur Creatinine 24 Hour Urine Total Protein Crossmatch 03/26/20 03/26/20 03/26/20 13:23 13:33 14:18 WBC RBC Hgb Hct MCV MCHC RDW Plt Count Lymph % (Auto) Lymph # (Auto) Brantley # (Auto) Seg Neuts % (Manual) Lymphocytes % (Manual) Nucleated RBC % Seg Neutrophils # Seg Neutrophils # Man Lymphocytes # (Manual) Monocytes # (Manual) PT INR APTT 75.5 H* ABG pH POC ABG pO2 ABG pO2 ABG HCO3 ABG O2 Saturation ABG Base Excess ABG Hemoglobin ABG Potassium ABG Chloride ABG Glucose Oxyhemoglobin Sodium Potassium Chloride Carbon Dioxide BUN Creatinine Glucose POC Glucose 107 H Calcium Phosphorus Magnesium Alkaline Phosphatase Total Creatine Kinase Troponin T Total Protein Albumin LDL Cholesterol Direct HDL Cholesterol Arterial Blood Glucose Arterial Blood Ionized Calcium Urine WBC (Auto) Urine Creatinine 63.7 H Ur Creatinine 24 Hour 0.4 L Urine Total Protein Crossmatch Allied health notes reviewed: nursing
[2020-03-27] MEDS: INSULIN LISPRO 100 UNIT/ML VIAL 3 mL SUB-Q SCH ×4 (00:44→21:24)
[2020-03-27] MEDS: VANCOMYCIN 250 MG/10 ML ORAL LIQD PO SCH ×5 (00:44→23:17)
[2020-03-27 06:11] LABS: Calcium 8.3 mg/dL (8.4-10.2)
[2020-03-27] MEDS: MIDODRINE 5 MG TAB PO SCH ×3 (09:31→16:27)
[2020-03-27] MEDS: FAMOTIDINE 20 MG/2 ML INJ IV SCH (09:32)
--- NOTE | 2020-03-27 10:36 | Consultation ---
History of Present Illness - Reason for Consult tpenia, concern for HIT - History of Present Illness heme data review 79yo disabled man with h/o stroke per notes, CKD, lives at long term, sacral ulcer h/o DVT per notes recent ESBL bacteremia, s/p 2 wks ertapenem adm for hypotension, confusion, found to have C. dif infection here-->oral vancomycin found to have ATN/CKD-->started HD needed RBC transfusions found to have low plt count-->argatroban; HIT testing neg so far; receuived steroid pulse doing better overall L pleural effusion noted leg cellulitis mentioned heme eval requested for guidance DATA REVIEW BELOW IMPRESSION Low plt count likely due to recent infection, or meds or HD-associated acute ITP doubt HIT but benefitting from argatroban and steroids high WBC likely due to subacute/acute illness; doubt heme malignancy recent severe anemia likely due to bleeding on argatroban liver dysfunction presumed, based on age and bleeding tendency RECOMMEND decrease argatroban to low dose "prevention" no plan for anticoag after discharge consider thoracentesis no transfusions needed today; transfuse RBC for severe anemia or bleeding no investigation of intervention for high WBC steroid taper labs to include LDH add IV Abx? Active Medications Epoeitin argatroban Midodrine (Proamatine) 10 mg PO TID@0800,1200,1600 [facility] Last Admin: 03/27/20 09:31 Dose: 10 mg Documented by: Vancomycin HCl (Vancomycin Po) 250 mg PO Q6HR [facility] Stop: 04/03/20 06:01 Last Admin: 03/27/20 05:58 Dose: 250 mg Documented by: Laboratory Last Values WBC 28.6 K/mm3 (4.5-11.0) H 03/24/20 05:19 Hgb 10.7 gm/dl (11.8-15.2) L 03/24/20 05:19 Hct 33.3 % (35.5-45.6) L 03/24/20 05:19 Plt Count 94 K/mm3 (140-440) L 03/24/20 05:19 Seg Neuts % (Manual) 94.0 % (40.0-70.0) H 03/23/20 09:35 PT 14.3 Sec. (12.2-14.9) 03/22/20 16:30 INR 1.09 (0.87-1.13) 03/22/20 16:30 APTT 75.5 Sec. (24.2-36.6) H* 03/26/20 13:33 Alkaline Phosphatase 224 units/L (35-129) H 03/16/20 14:22 Total Creatine Kinase 373 units/L (55-170) H 03/17/20 11:13 Albumin 1.9 g/dL (3.9-5) L 03/16/20 14:22 Heparin-induced Plt Ab Negative (Negative) 03/22/20 19:13 UF Heparin High Dose 0 % Release 03/22/20 19:13 LORETO UFH Low Dose 0.1 0 % Release 03/22/20 19:13 LORETO UFH Low Dose 0.5 0 % Release 03/22/20 19:13 Crossmatch See Detail 03/21/20 06:43 Past History Past Medical History: diabetes, hypertension, renal failure, other (See HPI) Past Surgical History: Other (Spinal fusion) Social history: single. denies: smoking, prescription drug abuse Family history: diabetes, hypertension Medications and Allergies Allergies Allergy/AdvReac Type Severity Reaction Status Date / Time diclofenac [Diclofenac] Allergy Rash Verified 10/05/18 08:11 Home Medications Medication Instructions Recorded Confirmed Last Taken Type Acetaminophen [Acetaminophen TAB] 650 mg PO Q4H PRN #1 tablet 02/28/17 03/19/20 Unknown Rx Aspirin [Aspirin BABY CHEW TAB] 81 mg PO DAILY #1 tab.chew 02/28/17 03/19/20 Unknown Rx Ferrous Sulfate [Feosol 325 MG tab] 325 mg PO QDAY #1 tablet 02/28/17 03/19/20 Unknown Rx Gabapentin 300 mg PO Q8HR #1 capsule 02/28/17 03/19/20 Unknown Rx Ondansetron [Zofran INJ] 4 mg IV Q8H PRN #1 vial 02/28/17 03/19/20 Unknown Rx amLODIPine 10 mg PO DAILY #1 tablet 02/28/17 03/19/20 Unknown Rx Ertapenem [INVanz] 1 gm IV QDAY vial 03/10/20 03/19/20 Unknown Rx Active Meds: Active Medications Acetaminophen (Tylenol) 650 mg FEEDTUBE Q6H PRN PRN Reason: Pain, Mild (1-3) Last Admin: 03/19/20 18:39 Dose: 650 mg Documented by: Albuterol (Proventil) 2.5 mg IH Q3HRT PRN PRN Reason: Shortness Of Breath Lipase/Protease/Amylase (Tejinder Granger 10,500 Unit) 1 each FEEDTUBE PRN PRN PRN Reason: For Clogged Feeding Tube Epoetin Colin (Procrit) 10,000 unit IV DAYLIN [facility] Famotidine (Pepcid) 20 mg IV DAILY [facility] Last Admin: 03/27/20 09:32 Dose: 20 mg Documented by: Hydromorphone HCl (Dilaudid) 0.25 mg IV Q4H PRN PRN Reason: Pain, Moderate (4-6) Hydrophilic Ointment (Aquaphor) 1 applic TP Q12HR PRN PRN Reason: DRY SKIN Last Admin: 03/21/20 16:38 Dose: 1 applic Documented by: Sodium Chloride (Nacl 0.9%) 100 mls @ 999 mls/hr IV DAYLIN PRN PRN Reason: Hypotension Sodium Chloride (Nacl 0.9%) 100 mls @ 999 mls/hr IV DAYLIN PRN PRN Reason: Hypotension Insulin Glargine (Lantus) 20 units SUB-Q QHS [facility] Last Admin: 03/26/20 22:00 Dose: Not Given Documented by: Insulin Human Lispro (Humalog) 0 unit SUB-Q Q6HR [facility]; Protocol Last Admin: 03/27/20 06:41 Dose: Not Given Documented by: Midodrine (Proamatine) 10 mg PO TID@0800,1200,1600 [facility] Last Admin: 03/27/20 09:31 Dose: 10 mg Documented by: Simple Syrup (Simple Syrup) 15 ml FEEDTUBE PRN PRN PRN Reason: Hypoglycemia Simple Syrup (Simple Syrup) 30 ml FEEDTUBE PRN PRN PRN Reason: Hypoglycemia Sodium Bicarbonate (Sodium Bicarbonate) 325 mg FEEDTUBE PRN PRN PRN Reason: For Clogged Feeding Tube Sodium Chloride (Sodium Chloride Flush Syringe 10 Ml) 10 ml IV BID [facility] Last Admin: 03/27/20 09:32 Dose: 10 ml Documented by: Sodium Chloride (Sodium Chloride Flush Syringe 10 Ml) 10 ml IV PRN PRN PRN Reason: LINE FLUSH Vancomycin HCl (Vancomycin Po) 250 mg PO Q6HR [facility] Stop: 04/03/20 06:01 Last Admin: 03/27/20 05:58 Dose: 250 mg Documented by: Exam - Constitutional Vitals: Temp Pulse Resp BP Pulse Ox 97.4 F L 81 19 133/64 93 03/27/20 08:02 03/27/20 08:02 03/27/20 08:02 03/27/20 08:02 03/27/20 08:02 Results - Labs CBC & Chem 7: 03/24/20 05:19 03/27/20 05:26 Labs: Abnormal lab results 03/26/20 03/26/20 03/26/20 Range/Units 13:23 13:33 14:18 APTT 75.5 H* (24.2-36.6) Sec. BUN (9-20) mg/dL Creatinine (0.8-1.3) mg/dL Glucose (75-100) mg/dL POC Glucose 107 H (70-105) mg/dL Calcium (8.4-10.2) mg/dL Phosphorus (2.5-4.5) mg/dL Urine Creatinine 63.7 H (0.1-20.0) mg/dL Ur Creatinine 24 Hour 0.4 L (0.8-2.8) 03/27/20 Range/Units 05:26 APTT (24.2-36.6) Sec. BUN 70 H (9-20) mg/dL Creatinine 3.9 H (0.8-1.3) mg/dL Glucose 67 L (75-100) mg/dL POC Glucose (70-105) mg/dL Calcium 8.3 L (8.4-10.2) mg/dL Phosphorus 6.40 H (2.5-4.5) mg/dL Urine Creatinine (0.1-20.0) mg/dL Ur Creatinine 24 Hour (0.8-2.8)
--- NOTE | 2020-03-27 10:51 | Event Note ---
Date: 03/27/20 Called the son on file, Mr. Haq, about his father. He does not want to make medical decisions about his father even after I explained the procedure planned for today (permcath). He instead wants me to contact his brother at [phone] who is an orthopedic physician, which is reasonable. I called his orthopedic surgeon brother multiple times and did not get a response. I contacted the original son who told me that his orthopedic surgeon brother would contact us in 5 minutes. This did not occur. I have spent over 30 minutes trying to contact family and contacted the original son multiple times. This is very difficult to obtain consent and I am not sure that this can be easily done due to the expectations of the family. I contacted the hospitalist, Dr. Velazquez about the family issues with obtaining consent.
[2020-03-27] MEDS: methylPREDNISolone Sod Succinate 40 MG/1 ML INJ IV SCH (11:46)
--- NOTE | 2020-03-27 11:53 | Progress Note ---
Assessment and Plan Assessment: Acute renal failure likely due to ischemic ATN Metabolic encphalopathy Metabolic acidosis Sepsis due to UTI UTI S/P Hypokalemia Anemia Plan: Renal labs reviewed. Serum creatinine 3.9 today, yesterday's was 3.6 24 hr urine creatinine clearance results pending S/P right femoral IJ Vascath by Vascular Surgery and first HD 03/20 Hemodialysis today for HD Epogen with HD for anemia Has weldon and rectal bag Renally dose medications Strict I&O monitoring Obtain daily weights Monitor renal function closely Consulted CM for outpatient dialysis placement to [facility] ID evaluated pt, on Abx, recommended removing femoral line, vascular surgery planning on perm cath placement and removal of femoral line on Friday-but so far Vascular is unable to get consent from patient's son or brother for perm-cath placement Plan of care reviewed with Dr. Zambrano Subjective Date of service: 03/27/20 Principal diagnosis: Acute hypoxemic respiratory failure; Septic shock; Ac. encephalopathy; ALEJANDRO Interval history: Patient seen lying in bed. Patient refusing to take juice for low blood sugar level of 44. RN at bedside. Objective - Vital Signs Vital signs: Vital Signs - 12hr 03/27/20 03/27/20 03/27/20 03:58 08:02 10:00 Temperature 97.5 F L 97.4 F L Pulse Rate 80 81 72 Respiratory 20 19 22 Rate Blood Pressure 133/68 133/64 O2 Sat by Pulse 96 93 97 Oximetry - General Appearance General appearance: chronically ill, fatigue EENT: ATNC, PERRL Neck: no JVD, supple Respiratory: Present: Decreased Breath Sounds Cardiology: S1S2 Gastrointestinal: normoactive bowel sounds Integumentary: other (skin flaking and desquamation generalized) Neurologic: other (Awake and alert but not oriented x 3) Musculoskeletal: joint swelling, other (has 1-2+ edema) Psychiatric: agitated - Lab 03/24/20 05:19 03/27/20 05:26 Most recent lab results ABG pH 7.378 pH Units (7.350-7.450) 03/20/20 16:35 ABG pCO2 38.6 mm Hg 03/20/20 16:35 ABG pO2 63.9 mm Hg (80.0-90.0) L 03/20/20 16:35 ABG HCO3 22.2 mmol/L (20.0-26.0) 03/20/20 16:35 ABG O2 Saturation 90.9 % (95.0-99.0) L 03/20/20 16:35 Calcium 8.3 mg/dL (8.4-10.2) L 03/27/20 05:26 Phosphorus 6.40 mg/dL (2.5-4.5) H 03/27/20 05:26 Magnesium 1.80 mg/dL (1.7-2.3) 03/24/20 05:19 Urine Creatinine 63.7 mg/dL (0.1-20.0) H 03/26/20 14:18 Urine Sodium 53 mmol/L 03/17/20 Unknown Urine Total Protein 328 mg/dL (5-11.8) H 03/17/20 Unknown Medications & Allergies - Medications Allergies/Adverse Reactions: Allergies diclofenac [Diclofenac] Allergy (Verified 10/05/18 08:11) Rash Home Medications: Home Medications Medication Instructions Recorded Confirmed Last Taken Type Acetaminophen [Acetaminophen TAB] 650 mg PO Q4H PRN #1 tablet 02/28/17 03/19/20 Unknown Rx Aspirin [Aspirin BABY CHEW TAB] 81 mg PO DAILY #1 tab.chew 02/28/17 03/19/20 Unknown Rx Ferrous Sulfate [Feosol 325 MG tab] 325 mg PO QDAY #1 tablet 02/28/17 03/19/20 Unknown Rx Gabapentin 300 mg PO Q8HR #1 capsule 02/28/17 03/19/20 Unknown Rx Ondansetron [Zofran INJ] 4 mg IV Q8H PRN #1 vial 02/28/17 03/19/20 Unknown Rx amLODIPine 10 mg PO DAILY #1 tablet 02/28/17 03/19/20 Unknown Rx Ertapenem [INVanz] 1 gm IV QDAY vial 03/10/20 03/19/20 Unknown Rx Active Medications: Generic Name Dose Route Start Last Admin Trade Name Freq PRN Reason Stop Dose Admin Acetaminophen 650 mg 03/19/20 18:21 03/19/20 18:39 Tylenol FEEDTUBE 650 mg Q6H PRN Administration Pain, Mild (1-3) Albuterol 2.5 mg 03/16/20 17:00 Proventil IH Q3HRT PRN Shortness Of Breath Lipase/Protease/Amylase 1 each 03/17/20 17:[address] 10,500 Unit FEEDTUBE PRN PRN For Clogged Feeding Tube Epoetin Colin 10,000 unit 03/24/20 17:00 Procrit IV DAYLIN [facility] Famotidine 20 mg 03/18/20 10:00 03/27/20 09:32 Pepcid IV 20 mg DAILY IDRIS Administration Heparin Sodium (Porcine) 5,000 unit 03/28/20 10:00 Heparin SUB-Q Q12HR [facility] Hydromorphone HCl 0.25 mg 03/16/20 17:30 Dilaudid IV Q4H PRN Pain, Moderate (4-6) Hydrophilic Ointment 1 applic 03/21/20 07:50 03/21/20 16:38 Aquaphor TP 1 applic Q12HR PRN Administration DRY SKIN Sodium Chloride 100 mls @ 999 mls/hr 03/20/20 15:38 Nacl 0.9% IV DAYLIN PRN Hypotension Sodium Chloride 100 mls @ 999 mls/hr 03/26/20 16:20 Nacl 0.9% IV DAYLIN PRN Hypotension Argatroban 250 mg/ Sodium 250 mls @ 3.51 mls/hr 03/27/20 12:00 Chloride IV 03/28/20 09:00 TITR [facility] Protocol 0.5 MCG/KG/MIN Insulin Glargine 20 units 03/18/20 22:00 03/26/20 22:00 Lantus SUB-Q Not Given QHS [facility] Insulin Human Lispro 0 unit 03/18/20 12:00 03/27/20 06:41 Humalog SUB-Q Not Given Q6HR [facility] Protocol Methylprednisolone Sodium Succinate 20 mg 03/27/20 12:00 03/27/20 11:46 Solu-Medrol IV 03/30/20 11:59 20 mg Q24HR [facility] Administration Midodrine 10 mg 03/20/20 12:00 03/27/20 11:46 Proamatine PO 10 mg TID@0800,1200,1600 IDRIS Administration Simple Syrup 15 ml 03/17/20 17:12 Simple Syrup FEEDTUBE PRN PRN Hypoglycemia Simple Syrup 30 ml 03/17/20 17:12 Simple Syrup FEEDTUBE PRN PRN Hypoglycemia Sodium Bicarbonate 325 mg 03/17/20 17:12 Sodium Bicarbonate FEEDTUBE PRN PRN For Clogged Feeding Tube Sodium Chloride 10 ml 10/29/20 22:00 03/27/20 09:32 Sodium Chloride Flush Syringe 10 Ml IV 10 ml BID IDRIS Administration Sodium Chloride 10 ml 03/16/20 17:00 Sodium Chloride Flush Syringe 10 Ml IV PRN PRN LINE FLUSH Vancomycin HCl 250 mg 03/20/20 12:00 03/27/20 11:46 Vancomycin Po PO 04/03/20 06:01 250 mg Q6HR IDRIS Administration
[2020-03-27] MEDS ORDERED: ARGATROBAN 250 MG in SODIUM CHLORIDE 0.9% 250ML 247.5 ML IV SCH (12:00)
[2020-03-27] MEDS ORDERED: DEXTROSE 50% IN WATER (25GM) 50 ML SYRINGE IV PRN (12:23)
[2020-03-27] MEDS ORDERED: DEXTROSE 50% IN WATER (25GM) 50 ML SYRINGE IV ONE (12:29)
--- NOTE | 2020-03-27 14:04 | Progress Note ---
Assessment and Plan Cultures: Blood cultures 03/16/2020 no growth today Assessment: 79 years old male with history of hypertension, diabetes mellitus, chronic kidney disease, previous CVA, chronic leg lymphedema, fci res ident, known to our service due to previous ESBL E. coli bacteremia from UTI on 03/02/2020, admitted on due to 24 hours history of generalized weakness and confusion associated with subjective fever: #Severe sepsis with septic shock: Shock resolved, remains with leukocytosis likely due to IV steroids. Source likely severe Cdiff #Severe C diff colitis: was on ertapenem for 2 weeks #Recent ESBL E. coli bacteremia patient was discharged on ertapenem 1 g IV daily for 14 days end date supposed to be 03/20/2020 #Acute encephalopathy: Likely secondary to sepsis/uremia #Acute on chronic kidney failure #Bilateral leg lymphedema with chronic skin changes #Exfoliative rash: ? Drug allergy, seems improving Recommendations: -Continue vancomycin 250 mg PO 4 times daily total 14 days -day 11 of 14 -Taper down IV steroids -remove femoral vas cath secondary to high risk for CLABSI -check CBC Will follow. Ivette Zamudio MD Infectious Diseases P [employer] [facility] ([facility]) M [phone] O [phone] Subjective Date of service: 03/27/20 Principal diagnosis: Acute hypoxemic respiratory failure; Septic shock; Ac. encephalopathy; ALEJANDRO Interval history: Patient reports feeling better, some confusion, talking, no fever Objective - Exam Narrative Exam: General appearance: Alert in no acute distress Eyes: anicteric sclerae, moist conjunctivae; no lid-lag; PERRLA lid edema HENT: Normocephalic, Atraumatic; normal external ears, nares open, oropharynx limited Neck: supple, tracheal midline, no JVD Lungs: Diminished breath sounds bilaterally CV: RRR no murmur Abdomen: Soft, non-tender Extremities: Extensive bilateral leg edema, chronic skin changes Skin: Extensive skin desquamation Psych: Alert Neuro: Alert Rectal tube with diarrhea Midline Femoral vas cath - Constitutional Vitals: Vital Signs Temp Pulse Resp BP Pulse Ox 97.4 F L 72 22 133/64 97 03/27/20 08:02 03/27/20 10:00 03/27/20 10:00 03/27/20 08:02 03/27/20 10:00 Temperature -Last 24 Hours Temperature 97.4 F Temperature 97.5 F Temperature 97.2 F Temperature 97.3 F - Labs CBC & Chem 7: 03/24/20 05:19 03/27/20 05:26 Labs: Abnormal lab results 03/26/20 03/26/20 03/26/20 Range/Units 13:23 13:33 14:18 APTT 75.5 H* (24.2-36.6) Sec. BUN (9-20) mg/dL Creatinine (0.8-1.3) mg/dL Glucose (75-100) mg/dL POC Glucose 107 H (70-105) mg/dL Calcium (8.4-10.2) mg/dL Phosphorus (2.5-4.5) mg/dL Lactate Dehydrogenase (91-180) units/L Urine Creatinine 63.7 H (0.1-20.0) mg/dL Ur Creatinine 24 Hour 0.4 L (0.8-2.8) 03/27/20 03/27/20 03/27/20 Range/Units 05:26 11:22 12:08 APTT (24.2-36.6) Sec. BUN 70 H (9-20) mg/dL Creatinine 3.9 H (0.8-1.3) mg/dL Glucose 67 L (75-100) mg/dL POC Glucose 44 L (70-105) mg/dL Calcium 8.3 L (8.4-10.2) mg/dL Phosphorus 6.40 H (2.5-4.5) mg/dL Lactate Dehydrogenase 255 H (91-180) units/L Urine Creatinine (0.1-20.0) mg/dL Ur Creatinine 24 Hour (0.8-2.8) 03/27/20 Range/Units 12:29 APTT (24.2-36.6) Sec. BUN (9-20) mg/dL Creatinine (0.8-1.3) mg/dL Glucose (75-100) mg/dL POC Glucose 53 L (70-105) mg/dL Calcium (8.4-10.2) mg/dL Phosphorus (2.5-4.5) mg/dL Lactate Dehydrogenase (91-180) units/L Urine Creatinine (0.1-20.0) mg/dL Ur Creatinine 24 Hour (0.8-2.8)
--- NOTE | 2020-03-27 14:38 | Progress Note ---
Assessment and Plan Patient awake. Weak. Patient is on room air.Not using his O2. O2 saturation 97%.O2 saturation fluctuating. Recommend Keep O2 2 litres via nasal canula. Patient denies chest pain, shortness of breath or cough. Patient afebrile. Has leukocytosis. Patient is on vancomycin. Chest xray done 03/20/20 reported moderate left pleural effusion with similar bibasilar opacities. No pneumothorax. Obtaining ultrasound of chest. - Patient Problems (1) Sepsis Current Visit: No Status: Acute Plan to address problem: Patient is on Vancomycin. (2) Suspected 2019 novel coronavirus infection Current Visit: No Status: Acute Plan to address problem: Lu virus reported negative. (3) Acute kidney injury (ALEJANDRO) with acute tubular necrosis (ATN) Current Visit: Yes Status: Acute Plan to address problem: Management as per nephrology. (4) History of ESBL E. coli infection Current Visit: Yes Status: Acute Plan to address problem: Management as per infectious diseases. (5) Toxic metabolic encephalopathy Current Visit: Yes Status: Acute Plan to address problem: Management as per primary care. (6) Cellulitis of right leg Current Visit: No Status: Acute Plan to address problem: Patient is on vancomycin. (7) Pleural effusion, left Current Visit: Yes Status: Acute Plan to address problem: Obtaining ultrasound of chest to quantitate pleural effusion. (8) Pulmonary infiltrates on CXR Current Visit: Yes Status: Acute Plan to address problem: Patient is on vancomycin. 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 Subjective Date of service: 03/27/20 Principal diagnosis: Acute hypoxemic respiratory failure; Septic shock; Ac. ence phalopathy; ALEJANDRO Interval history: Patient awake. Weak. Patient is on room air.Not using his O2. O2 saturation 97%.O2 saturation fluctuating. Recommend Keep O2 2 litres via nasal canula. Patient denies chest pain, shortness of breath or cough. Patient afebrile. Has leukocytosis. Patient is on vancomycin. Chest xray done 03/20/20 reported moderate left pleural effusion with similar bibasilar opacities. No pneumothorax. Obtaining ultrasound of chest. Objective Vital Signs - 12hr 03/27/20 03/27/20 03/27/20 03:58 08:02 10:00 Temperature 97.5 F L 97.4 F L Pulse Rate 80 81 72 Respiratory 20 19 22 Rate Blood Pressure 133/68 133/64 O2 Sat by Pulse 96 93 97 Oximetry Constitutional: no acute distress, alert, appears uncomfortable, other (elderly obese male with mild respiratory effort at rest) Eyes: non-icteric ENT: oropharynx dry Neck: supple, no JVD, other (large neck circumference) Effort: mildly labored Ascultation: Bilateral: diminished breath sounds, rhonchi Percussion: Bilateral: not dull Cardiovascular: regular rate and rhythm Gastrointestinal: normoactive bowel sounds, soft, non-tender, non-distended (protuberant) Integumentary: rash (Generalized skin flaking/with superficial skin sloughing without erythema or warmth on chest wall), decubitus ulcer (see RN/WCN notes for details) Extremities: pulses normal, cool, other (Patient has stasis dermatitis and wounds on both legs.) Neurologic: non-focal exam (grossly), pupils equal and round, CN II-XII normal Psychiatric: other (flat affect to depressed at times) CBC and BMP: 03/24/20 05:19 03/27/20 05:26 ABG, PT/INR, D-dimer: ABG ABG pH 7.378 pH Units (7.350-7.450) 03/20/20 16:35 POC ABG pCO2 37.3 mmHg (32.0-48.0) 03/18/20 12:14 ABG pCO2 38.6 mm Hg 03/20/20 16:35 POC ABG pO2 67.4 mmHg (83-108) L 03/18/20 12:14 ABG pO2 63.9 mm Hg (80.0-90.0) L 03/20/20 16:35 POC ABG HCO3 14.1 03/18/20 12:14 ABG O2 Saturation 90.9 % (95.0-99.0) L 03/20/20 16:35 PT/INR, D-dimer PT 14.3 Sec. (12.2-14.9) 03/22/20 16:30 INR 1.09 (0.87-1.13) 03/22/20 16:30 Abnormal lab findings: Abnormal Labs 10/29/20 10/29/20 10/29/20 14:22 14:22 14:23 WBC 32.2 H RBC 2.93 L Hgb 8.9 L Hct 28.2 L MCV 96 H MCHC RDW 18.1 H Plt Count Lymph % (Auto) Lymph # (Auto) [place] # (Auto) Seg Neuts % (Manual) 82.0 H Lymphocytes % (Manual) 10.0 L Nucleated RBC % 3.0 H Seg Neutrophils # Seg Neutrophils # Man 26.4 H Lymphocytes # (Manual) Monocytes # (Manual) 1.9 H PT INR APTT ABG pH POC ABG pO2 ABG pO2 ABG HCO3 ABG O2 Saturation ABG Base Excess ABG Hemoglobin ABG Potassium ABG Chloride ABG Glucose Oxyhemoglobin Sodium Potassium 3.3 L Chloride 108.9 H Carbon Dioxide 12 L BUN 59 H Creatinine 5.9 H Glucose 142 H POC Glucose Calcium 7.7 L Phosphorus Magnesium Alkaline Phosphatase 224 H Lactate Dehydrogenase Total Creatine Kinase Troponin T 0.033 H Total Protein 5.4 L Albumin 1.9 L LDL Cholesterol Direct 35 L HDL Cholesterol 37 L Arterial Blood Glucose Arterial Blood Ionized Calcium Urine WBC (Auto) Urine Creatinine Ur Creatinine 24 Hour Urine Total Protein Crossmatch 03/16/20 03/16/20 03/16/20 14:27 19:50 21:15 WBC RBC Hgb Hct MCV MCHC RDW Plt Count Lymph % (Auto) Lymph # (Auto) [place] # (Auto) Seg Neuts % (Manual) Lymphocytes % (Manual) Nucleated RBC % Seg Neutrophils # Seg Neutrophils # Man Lymphocytes # (Manual) Monocytes # (Manual) PT 17.2 H INR 1.37 H APTT 51.3 H ABG pH POC ABG pO2 ABG pO2 ABG HCO3 ABG O2 Saturation ABG Base Excess ABG Hemoglobin ABG Potassium ABG Chloride ABG Glucose Oxyhemoglobin Sodium Potassium Chloride Carbon Dioxide BUN Creatinine Glucose POC Glucose Calcium Phosphorus Magnesium Alkaline Phosphatase Lactate Dehydrogenase Total Creatine Kinase Troponin T 0.031 H Total Protein Albumin LDL Cholesterol Direct HDL Cholesterol Arterial Blood Glucose Arterial Blood Ionized Calcium Urine WBC (Auto) > 182.0 H Urine Creatinine Ur Creatinine 24 Hour Urine Total Protein Crossmatch 03/16/20 03/17/20 03/17/20 22:25 11:13 11:13 WBC 34.4 H RBC 2.60 L Hgb 7.8 L Hct 25.2 L MCV 97 H MCHC 31 L RDW 18.7 H Plt Count Lymph % (Auto) Lymph # (Auto) [place] # (Auto) Seg Neuts % (Manual) 88.0 H Lymphocytes % (Manual) 1.0 L Nucleated RBC % 13.0 H Seg Neutrophils # Seg Neutrophils # Man 30.3 H Lymphocytes # (Manual) 0.3 L Monocytes # (Manual) PT INR APTT ABG pH POC ABG pO2 ABG pO2 ABG HCO3 ABG O2 Saturation ABG Base Excess ABG Hemoglobin ABG Potassium ABG Chloride ABG Glucose Oxyhemoglobin Sodium Potassium 3.3 L Chloride 108.5 H Carbon Dioxide 16 L BUN 57 H Creatinine 5.5 H Glucose 325 H POC Glucose Calcium 7.0 L Phosphorus Magnesium Alkaline Phosphatase Lactate Dehydrogenase Total Creatine Kinase Troponin T 0.047 H D Total Protein Albumin LDL Cholesterol Direct HDL Cholesterol Arterial Blood Glucose Arterial Blood Ionized Calcium Urine WBC (Auto) Urine Creatinine Ur Creatinine 24 Hour Urine Total Protein Crossmatch 03/17/20 03/17/20 03/17/20 11:13 11:40 Unknown WBC RBC Hgb Hct MCV MCHC RDW Plt Count Lymph % (Auto) Lymph # (Auto) [place] # (Auto) Seg Neuts % (Manual) Lymphocytes % (Manual) Nucleated RBC % Seg Neutrophils # Seg Neutrophils # Man Lymphocytes # (Manual) Monocytes # (Manual) PT INR APTT ABG pH 7.229 L POC ABG pO2 ABG pO2 98.3 H ABG HCO3 14.6 L ABG O2 Saturation ABG Base Excess -12.0 L ABG Hemoglobin 8.9 L ABG Potassium ABG Chloride ABG Glucose Oxyhemoglobin Sodium Potassium Chloride Carbon Dioxide BUN Creatinine Glucose POC Glucose Calcium Phosphorus Magnesium Alkaline Phosphatase Lactate Dehydrogenase Total Creatine Kinase 373 H Troponin T Total Protein Albumin LDL Cholesterol Direct HDL Cholesterol Arterial Blood Glucose Arterial Blood Ionized Calcium Urine WBC (Auto) > 182.0 H Urine Creatinine Ur Creatinine 24 Hour Urine Total Protein Crossmatch 03/17/20 03/18/20 03/18/20 Unknown 04:40 04:40 WBC 32.0 H RBC 2.56 L Hgb 7.9 L Hct 24.7 L MCV 96 H MCHC RDW 18.2 H Plt Count Lymph % (Auto) Lymph # (Auto) [place] # (Auto) Seg Neuts % (Manual) Lymphocytes % (Manual) Nucleated RBC % Seg Neutrophils # Seg Neutrophils # Man Lymphocytes # (Manual) Monocytes # (Manual) PT INR APTT ABG pH POC ABG pO2 ABG pO2 ABG HCO3 ABG O2 Saturation ABG Base Excess ABG Hemoglobin ABG Potassium ABG Chloride ABG Glucose Oxyhemoglobin Sodium Potassium 2.7 L* Chloride 111.8 H Carbon Dioxide 12 L BUN 56 H Creatinine 4.6 H Glucose 347 H POC Glucose Calcium 6.7 L Phosphorus 5.40 H Magnesium Alkaline Phosphatase Lactate Dehydrogenase Total Creatine Kinase Troponin T Total Protein Albumin LDL Cholesterol Direct HDL Cholesterol Arterial Blood Glucose Arterial Blood Ionized Calcium Urine WBC (Auto) Urine Creatinine 139.3 H Ur Creatinine 24 Hour Urine Total Protein 328 H Crossmatch 03/18/20 03/18/20 03/18/20 04:40 04:48 12:14 WBC RBC Hgb Hct MCV MCHC RDW Plt Count Lymph % (Auto) Lymph # (Auto) [place] # (Auto) Seg Neuts % (Manual) Lymphocytes % (Manual) Nucleated RBC % Seg Neutrophils # Seg Neutrophils # Man Lymphocytes # (Manual) Monocytes # (Manual) PT INR APTT ABG pH 7.230 L 7.196 L POC ABG pO2 67.4 L ABG pO2 91.6 H ABG HCO3 13.7 L ABG O2 Saturation ABG Base Excess -12.8 L ABG Hemoglobin 9.2 L 9.9 L ABG Potassium 3.3 L ABG Chloride 112.0 H ABG Glucose 355 H Oxyhemoglobin 94.8 L Sodium Potassium Chloride Carbon Dioxide BUN Creatinine Glucose POC Glucose Calcium Phosphorus Magnesium 1.40 L Alkaline Phosphatase Lactate Dehydrogenase Total Creatine Kinase Troponin T Total Protein Albumin LDL Cholesterol Direct HDL Cholesterol Arterial Blood Glucose 355 H Arterial Blood Ionized Calcium 4.5 L Urine WBC (Auto) Urine Creatinine Ur Creatinine 24 Hour Urine Total Protein Crossmatch 03/18/20 03/18/20 03/18/20 13:17 13:32 19:15 WBC RBC Hgb Hct MCV MCHC RDW Plt Count Lymph % (Auto) Lymph # (Auto) [place] # (Auto) Seg Neuts % (Manual) Lymphocytes % (Manual) Nucleated RBC % Seg Neutrophils # Seg Neutrophils # Man Lymphocytes # (Manual) Monocytes # (Manual) PT INR APTT ABG pH POC ABG pO2 ABG pO2 ABG HCO3 ABG O2 Saturation ABG Base Excess ABG Hemoglobin ABG Potassium ABG Chloride ABG Glucose Oxyhemoglobin Sodium Potassium 3.0 L 3.4 L Chloride 107.2 H Carbon Dioxide 14 L 13 L BUN 59 H 67 H Creatinine 4.8 H 5.1 H Glucose 341 H 371 H POC Glucose 394 H Calcium 7.0 L 7.8 L Phosphorus Magnesium Alkaline Phosphatase Lactate Dehydrogenase Total Creatine Kinase Troponin T Total Protein Albumin LDL Cholesterol Direct HDL Cholesterol Arterial Blood Glucose Arterial Blood Ionized Calcium Urine WBC (Auto) Urine Creatinine Ur Creatinine 24 Hour Urine Total Protein Crossmatch 03/18/20 03/18/20 03/19/20 19:21 23:00 01:32 EST WBC RBC Hgb Hct MCV MCHC RDW Plt Count Lymph % (Auto) Lymph # (Auto) [place] # (Auto) Seg Neuts % (Manual) Lymphocytes % (Manual) Nucleated RBC % Seg Neutrophils # Seg Neutrophils # Man Lymphocytes # (Manual) Monocytes # (Manual) PT INR APTT ABG pH POC ABG pO2 ABG pO2 ABG HCO3 ABG O2 Saturation ABG Base Excess ABG Hemoglobin ABG Potassium ABG Chloride ABG Glucose Oxyhemoglobin Sodium Potassium Chloride Carbon Dioxide BUN Creatinine Glucose POC Glucose 453 H 360 H 338 H Calcium Phosphorus Magnesium Alkaline Phosphatase Lactate Dehydrogenase Total Creatine Kinase Troponin T Total Protein Albumin LDL Cholesterol Direct HDL Cholesterol Arterial Blood Glucose Arterial Blood Ionized Calcium Urine WBC (Auto) Urine Creatinine Ur Creatinine 24 Hour Urine Total Protein Crossmatch 03/19/20 03/19/20 03/19/20 04:10 05:10 05:10 WBC 25.8 H RBC 3.61 L Hgb 10.9 L D Hct MCV 100 H MCHC 30 L RDW 19.1 H Plt Count Lymph % (Auto) Lymph # (Auto) [place] # (Auto) Seg Neuts % (Manual) Lymphocytes % (Manual) Nucleated RBC % Seg Neutrophils # Seg Neutrophils # Man Lymphocytes # (Manual) Monocytes # (Manual) PT INR APTT ABG pH 7.309 L POC ABG pO2 ABG pO2 69.4 L ABG HCO3 17.9 L ABG O2 Saturation 92.4 L ABG Base Excess -7.6 L ABG Hemoglobin 8.1 L ABG Potassium ABG Chloride ABG Glucose Oxyhemoglobin 90.8 L Sodium Potassium Chloride Carbon Dioxide BUN Creatinine Glucose POC Glucose Calcium Phosphorus 5.60 H Magnesium Alkaline Phosphatase Lactate Dehydrogenase Total Creatine Kinase Troponin T Total Protein Albumin LDL Cholesterol Direct HDL Cholesterol Arterial Blood Glucose Arterial Blood Ionized Calcium Urine WBC (Auto) Urine Creatinine Ur Creatinine 24 Hour Urine Total Protein Crossmatch 03/19/20 03/19/20 03/19/20 10:00 11:22 Unknown WBC RBC Hgb Hct MCV MCHC RDW Plt Count Lymph % (Auto) Lymph # (Auto) [place] # (Auto) Seg Neuts % (Manual) Lymphocytes % (Manual) Nucleated RBC % Seg Neutrophils # Seg Neutrophils # Man Lymphocytes # (Manual) Monocytes # (Manual) PT 15.3 H INR 1.18 H APTT ABG pH POC ABG pO2 ABG pO2 ABG HCO3 ABG O2 Saturation ABG Base Excess ABG Hemoglobin ABG Potassium ABG Chloride ABG Glucose Oxyhemoglobin Sodium Potassium 3.0 L Chloride Carbon Dioxide BUN 69 H Creatinine 5.4 H Glucose 250 H POC Glucose 274 H Calcium 7.9 L Phosphorus Magnesium Alkaline Phosphatase Lactate Dehydrogenase Total Creatine Kinase Troponin T Total Protein Albumin LDL Cholesterol Direct HDL Cholesterol Arterial Blood Glucose Arterial Blood Ionized Calcium Urine WBC (Auto) Urine Creatinine Ur Creatinine 24 Hour Urine Total Protein Crossmatch 03/20/20 03/20/20 03/20/20 01:56 05:22 06:35 WBC 27.5 H RBC 2.57 L Hgb 7.9 L D Hct 23.3 L D MCV MCHC RDW 17.7 H Plt Count Lymph % (Auto) Lymph # (Auto) [place] # (Auto) Seg Neuts % (Manual) Lymphocytes % (Manual) Nucleated RBC % Seg Neutrophils # Seg Neutrophils # Man Lymphocytes # (Manual) Monocytes # (Manual) PT INR APTT ABG pH POC ABG pO2 ABG pO2 ABG HCO3 ABG O2 Saturation ABG Base Excess ABG Hemoglobin ABG Potassium ABG Chloride ABG Glucose Oxyhemoglobin Sodium Potassium Chloride Carbon Dioxide BUN Creatinine Glucose POC Glucose 145 H 181 H Calcium Phosphorus Magnesium Alkaline Phosphatase Lactate Dehydrogenase Total Creatine Kinase Troponin T Total Protein Albumin LDL Cholesterol Direct HDL Cholesterol Arterial Blood Glucose Arterial Blood Ionized Calcium Urine WBC (Auto) Urine Creatinine Ur Creatinine 24 Hour Urine Total Protein Crossmatch 03/20/20 03/20/20 03/20/20 06:35 12:10 13:30 WBC RBC Hgb Hct MCV MCHC RDW Plt Count Lymph % (Auto) Lymph # (Auto) [place] # (Auto) Seg Neuts % (Manual) Lymphocytes % (Manual) Nucleated RBC % Seg Neutrophils # Seg Neutrophils # Man Lymphocytes # (Manual) Monocytes # (Manual) PT INR APTT ABG pH POC ABG pO2 ABG pO2 ABG HCO3 ABG O2 Saturation ABG Base Excess ABG Hemoglobin ABG Potassium ABG Chloride ABG Glucose Oxyhemoglobin Sodium Potassium 2.9 L* Chloride Carbon Dioxide BUN 69 H Creatinine 5.1 H Glucose 146 H POC Glucose 164 H Calcium 8.2 L Phosphorus 5.40 H Magnesium Alkaline Phosphatase Lactate Dehydrogenase Total Creatine Kinase Troponin T Total Protein Albumin LDL Cholesterol Direct HDL Cholesterol Arterial Blood Glucose Arterial Blood Ionized Calcium Urine WBC (Auto) 153.0 H Urine Creatinine Ur Creatinine 24 Hour Urine Total Protein Crossmatch 03/20/20 03/20/20 03/20/20 16:00 16:35 17:23 WBC RBC Hgb Hct MCV MCHC RDW Plt Count Lymph % (Auto) Lymph # (Auto) [place] # (Auto) Seg Neuts % (Manual) Lymphocytes % (Manual) Nucleated RBC % Seg Neutrophils # Seg Neutrophils # Man Lymphocytes # (Manual) Monocytes # (Manual) PT INR APTT ABG pH POC ABG pO2 ABG pO2 63.9 L ABG HCO3 ABG O2 Saturation 90.9 L ABG Base Excess -2.6 L ABG Hemoglobin 9.5 L ABG Potassium ABG Chloride ABG Glucose Oxyhemoglobin 89.3 L Sodium 146 H Potassium 3.3 L Chloride Carbon Dioxide BUN 72 H Creatinine 5.1 H Glucose 150 H POC Glucose 191 H Calcium 8.2 L Phosphorus Magnesium Alkaline Phosphatase Lactate Dehydrogenase Total Creatine Kinase Troponin T Total Protein Albumin LDL Cholesterol Direct HDL Cholesterol Arterial Blood Glucose Arterial Blood Ionized Calcium Urine WBC (Auto) Urine Creatinine Ur Creatinine 24 Hour Urine Total Protein Crossmatch 03/21/20 03/21/20 03/21/20 00:48 03:55 03:55 WBC 22.4 H RBC 2.06 L Hgb 6.3 L Hct 19.2 L* MCV MCHC RDW 17.7 H Plt Count 86 L Lymph % (Auto) Lymph # (Auto) [place] # (Auto) Seg Neuts % (Manual) Lymphocytes % (Manual) Nucleated RBC % Seg Neutrophils # Seg Neutrophils # Man Lymphocytes # (Manual) Monocytes # (Manual) PT INR APTT ABG pH POC ABG pO2 ABG pO2 ABG HCO3 ABG O2 Saturation ABG Base Excess ABG Hemoglobin ABG Potassium ABG Chloride ABG Glucose Oxyhemoglobin Sodium 148 H Potassium 2.8 L* Chloride 108.2 H Carbon Dioxide BUN 52 H Creatinine 3.8 H Glucose 130 H POC Glucose 158 H Calcium 7.6 L Phosphorus Magnesium Alkaline Phosphatase Lactate Dehydrogenase Total Creatine Kinase Troponin T Total Protein Albumin LDL Cholesterol Direct HDL Cholesterol Arterial Blood Glucose Arterial Blood Ionized Calcium Urine WBC (Auto) Urine Creatinine Ur Creatinine 24 Hour Urine Total Protein Crossmatch 03/21/20 03/21/20 03/21/20 05:37 06:43 09:15 WBC RBC Hgb Hct MCV MCHC RDW Plt Count Lymph % (Auto) Lymph # (Auto) [place] # (Auto) Seg Neuts % (Manual) Lymphocytes % (Manual) Nucleated RBC % Seg Neutrophils # Seg Neutrophils # Man Lymphocytes # (Manual) Monocytes # (Manual) PT INR APTT ABG pH POC ABG pO2 ABG pO2 ABG HCO3 ABG O2 Saturation ABG Base Excess ABG Hemoglobin ABG Potassium ABG Chloride ABG Glucose Oxyhemoglobin Sodium Potassium 3.5 L D Chloride Carbon Dioxide BUN 56 H Creatinine 4.3 H Glucose 104 H POC Glucose 159 H Calcium Phosphorus Magnesium Alkaline Phosphatase Lactate Dehydrogenase Total Creatine Kinase Troponin T Total Protein Albumin LDL Cholesterol Direct HDL Cholesterol Arterial Blood Glucose Arterial Blood Ionized Calcium Urine WBC (Auto) Urine Creatinine Ur Creatinine 24 Hour Urine Total Protein Crossmatch See Detail 03/21/20 03/21/20 03/22/20 12:55 17:26 00:16 WBC RBC Hgb Hct MCV MCHC RDW Plt Count Lymph % (Auto) Lymph # (Auto) [place] # (Auto) Seg Neuts % (Manual) Lymphocytes % (Manual) Nucleated RBC % Seg Neutrophils # Seg Neutrophils # Man Lymphocytes # (Manual) Monocytes # (Manual) PT INR APTT ABG pH POC ABG pO2 ABG pO2 ABG HCO3 ABG O2 Saturation ABG Base Excess ABG Hemoglobin ABG Potassium ABG Chloride ABG Glucose Oxyhemoglobin Sodium Potassium Chloride Carbon Dioxide BUN Creatinine Glucose POC Glucose 157 H 128 H 148 H Calcium Phosphorus Magnesium Alkaline Phosphatase Lactate Dehydrogenase Total Creatine Kinase Troponin T Total Protein Albumin LDL Cholesterol Direct HDL Cholesterol Arterial Blood Glucose Arterial Blood Ionized Calcium Urine WBC (Auto) Urine Creatinine Ur Creatinine 24 Hour Urine Total Protein Crossmatch 03/22/20 03/22/20 03/22/20 04:00 04:43 05:00 WBC 26.2 H RBC 3.16 L Hgb 9.6 L D Hct 29.1 L D MCV MCHC RDW 18.2 H Plt Count 86 L Lymph % (Auto) Lymph # (Auto) [place] # (Auto) Seg Neuts % (Manual) Lymphocytes % (Manual) Nucleated RBC % Seg Neutrophils # Seg Neutrophils # Man Lymphocytes # (Manual) Monocytes # (Manual) PT INR APTT ABG pH POC ABG pO2 ABG pO2 ABG HCO3 ABG O2 Saturation ABG Base Excess ABG Hemoglobin ABG Potassium ABG Chloride ABG Glucose Oxyhemoglobin Sodium Potassium 3.5 L Chloride Carbon Dioxide BUN 47 H Creatinine 3.3 H Glucose 171 H POC Glucose Calcium 8.3 L Phosphorus Magnesium 1.60 L Alkaline Phosphatase Lactate Dehydrogenase Total Creatine Kinase Troponin T Total Protein Albumin LDL Cholesterol Direct HDL Cholesterol Arterial Blood Glucose Arterial Blood Ionized Calcium Urine WBC (Auto) Urine Creatinine Ur Creatinine 24 Hour Urine Total Protein Crossmatch 03/22/20 03/22/20 03/22/20 05:41 12:18 17:29 WBC RBC Hgb Hct MCV MCHC RDW Plt Count Lymph % (Auto) Lymph # (Auto) [place] # (Auto) Seg Neuts % (Manual) Lymphocytes % (Manual) Nucleated RBC % Seg Neutrophils # Seg Neutrophils # Man Lymphocytes # (Manual) Monocytes # (Manual) PT INR APTT ABG pH POC ABG pO2 ABG pO2 ABG HCO3 ABG O2 Saturation ABG Base Excess ABG Hemoglobin ABG Potassium ABG Chloride ABG Glucose Oxyhemoglobin Sodium Potassium Chloride Carbon Dioxide BUN Creatinine Glucose POC Glucose 183 H 129 H 184 H Calcium Phosphorus Magnesium Alkaline Phosphatase Lactate Dehydrogenase Total Creatine Kinase Troponin T Total Protein Albumin LDL Cholesterol Direct HDL Cholesterol Arterial Blood Glucose Arterial Blood Ionized Calcium Urine WBC (Auto) Urine Creatinine Ur Creatinine 24 Hour Urine Total Protein Crossmatch 03/22/20 03/23/20 03/23/20 19:13 00:22 06:09 WBC RBC Hgb Hct MCV MCHC RDW Plt Count Lymph % (Auto) Lymph # (Auto) [place] # (Auto) Seg Neuts % (Manual) Lymphocytes % (Manual) Nucleated RBC % Seg Neutrophils # Seg Neutrophils # Man Lymphocytes # (Manual) Monocytes # (Manual) PT INR APTT 91.0 H* ABG pH POC ABG pO2 ABG pO2 ABG HCO3 ABG O2 Saturation ABG Base Excess ABG Hemoglobin ABG Potassium ABG Chloride ABG Glucose Oxyhemoglobin Sodium Potassium Chloride Carbon Dioxide BUN Creatinine Glucose POC Glucose 159 H 166 H Calcium Phosphorus Magnesium Alkaline Phosphatase Lactate Dehydrogenase Total Creatine Kinase Troponin T Total Protein Albumin LDL Cholesterol Direct HDL Cholesterol Arterial Blood Glucose Arterial Blood Ionized Calcium Urine WBC (Auto) Urine Creatinine Ur Creatinine 24 Hour Urine Total Protein Crossmatch 03/23/20 03/23/20 03/23/20 09:35 09:35 09:35 WBC 26.9 H RBC 3.60 L Hgb 10.7 L Hct 32.7 L MCV MCHC RDW 18.9 H Plt Count 98 L Lymph % (Auto) Lymph # (Auto) [place] # (Auto) Seg Neuts % (Manual) 94.0 H Lymphocytes % (Manual) 2.0 L Nucleated RBC % 1.0 H Seg Neutrophils # Seg Neutrophils # Man 25.3 H Lymphocytes # (Manual) 0.5 L Monocytes # (Manual) PT INR APTT ABG pH POC ABG pO2 ABG pO2 ABG HCO3 ABG O2 Saturation ABG Base Excess ABG Hemoglobin ABG Potassium ABG Chloride ABG Glucose Oxyhemoglobin Sodium Potassium 3.5 L Chloride Carbon Dioxide BUN 61 H Creatinine 3.7 H Glucose 148 H POC Glucose Calcium Phosphorus 4.90 H D Magnesium Alkaline Phosphatase Lactate Dehydrogenase Total Creatine Kinase Troponin T Total Protein Albumin LDL Cholesterol Direct HDL Cholesterol Arterial Blood Glucose Arterial Blood Ionized Calcium Urine WBC (Auto) Urine Creatinine Ur Creatinine 24 Hour Urine Total Protein Crossmatch 03/23/20 03/23/20 03/23/20 09:35 11:56 17:07 WBC RBC Hgb Hct MCV MCHC RDW Plt Count Lymph % (Auto) Lymph # (Auto) [place] # (Auto) Seg Neuts % (Manual) Lymphocytes % (Manual) Nucleated RBC % Seg Neutrophils # Seg Neutrophils # Man Lymphocytes # (Manual) Monocytes # (Manual) PT INR APTT 115.2 H* 74.5 H* ABG pH POC ABG pO2 ABG pO2 ABG HCO3 ABG O2 Saturation ABG Base Excess ABG Hemoglobin ABG Potassium ABG Chloride ABG Glucose Oxyhemoglobin Sodium Potassium Chloride Carbon Dioxide BUN Creatinine Glucose POC Glucose 159 H Calcium Phosphorus Magnesium Alkaline Phosphatase Lactate Dehydrogenase Total Creatine Kinase Troponin T Total Protein Albumin LDL Cholesterol Direct HDL Cholesterol Arterial Blood Glucose Arterial Blood Ionized Calcium Urine WBC (Auto) Urine Creatinine Ur Creatinine 24 Hour Urine Total Protein Crossmatch 03/23/20 03/23/20 03/23/20 17:34 21:45 22:24 WBC RBC Hgb Hct MCV MCHC RDW Plt Count Lymph % (Auto) Lymph # (Auto) [place] # (Auto) Seg Neuts % (Manual) Lymphocytes % (Manual) Nucleated RBC % Seg Neutrophils # Seg Neutrophils # Man Lymphocytes # (Manual) Monocytes # (Manual) PT INR APTT 112.5 H* ABG pH POC ABG pO2 ABG pO2 ABG HCO3 ABG O2 Saturation ABG Base Excess ABG Hemoglobin ABG Potassium ABG Chloride ABG Glucose Oxyhemoglobin Sodium Potassium Chloride Carbon Dioxide BUN Creatinine Glucose POC Glucose 217 H 160 H Calcium Phosphorus Magnesium Alkaline Phosphatase Lactate Dehydrogenase Total Creatine Kinase Troponin T Total Protein Albumin LDL Cholesterol Direct HDL Cholesterol Arterial Blood Glucose Arterial Blood Ionized Calcium Urine WBC (Auto) Urine Creatinine Ur Creatinine 24 Hour Urine Total Protein Crossmatch 03/24/20 03/24/20 03/24/20 01:13 05:19 05:19 WBC 28.6 H RBC 3.57 L Hgb 10.7 L Hct 33.3 L MCV MCHC RDW 18.4 H Plt Count 94 L Lymph % (Auto) 4.0 L Lymph # (Auto) 1.1 L [place] # (Auto) 0.9 H Seg Neuts % (Manual) Lymphocytes % (Manual) Nucleated RBC % Seg Neutrophils # 26.4 H Seg Neutrophils # Man Lymphocytes # (Manual) Monocytes # (Manual) PT INR APTT ABG pH POC ABG pO2 ABG pO2 ABG HCO3 ABG O2 Saturation ABG Base Excess ABG Hemoglobin ABG Potassium ABG Chloride ABG Glucose Oxyhemoglobin Sodium 146 H Potassium 3.5 L Chloride Carbon Dioxide BUN 71 H Creatinine 3.9 H Glucose 141 H POC Glucose 186 H Calcium 8.3 L Phosphorus 5.80 H Magnesium Alkaline Phosphatase Lactate Dehydrogenase Total Creatine Kinase Troponin T Total Protein Albumin LDL Cholesterol Direct HDL Cholesterol Arterial Blood Glucose Arterial Blood Ionized Calcium Urine WBC (Auto) Urine Creatinine Ur Creatinine 24 Hour Urine Total Protein Crossmatch 03/24/20 03/24/20 03/24/20 05:19 06:35 12:24 WBC RBC Hgb Hct MCV MCHC RDW Plt Count Lymph % (Auto) Lymph # (Auto) [place] # (Auto) Seg Neuts % (Manual) Lymphocytes % (Manual) Nucleated RBC % Seg Neutrophils # Seg Neutrophils # Man Lymphocytes # (Manual) Monocytes # (Manual) PT INR APTT 91.5 H* ABG pH POC ABG pO2 ABG pO2 ABG HCO3 ABG O2 Saturation ABG Base Excess ABG Hemoglobin ABG Potassium ABG Chloride ABG Glucose Oxyhemoglobin Sodium Potassium Chloride Carbon Dioxide BUN Creatinine Glucose POC Glucose 153 H 162 H Calcium Phosphorus Magnesium Alkaline Phosphatase Lactate Dehydrogenase Total Creatine Kinase Troponin T Total Protein Albumin LDL Cholesterol Direct HDL Cholesterol Arterial Blood Glucose Arterial Blood Ionized Calcium Urine WBC (Auto) Urine Creatinine Ur Creatinine 24 Hour Urine Total Protein Crossmatch 03/24/20 03/24/20 03/25/20 19:50 23:56 05:11 WBC RBC Hgb Hct MCV MCHC RDW Plt Count Lymph % (Auto) Lymph # (Auto) [place] # (Auto) Seg Neuts % (Manual) Lymphocytes % (Manual) Nucleated RBC % Seg Neutrophils # Seg Neutrophils # Man Lymphocytes # (Manual) Monocytes # (Manual) PT INR APTT 75.3 H* ABG pH POC ABG pO2 ABG pO2 ABG HCO3 ABG O2 Saturation ABG Base Excess ABG Hemoglobin ABG Potassium ABG Chloride ABG Glucose Oxyhemoglobin Sodium Potassium Chloride Carbon Dioxide BUN Creatinine Glucose POC Glucose 193 H 139 H Calcium Phosphorus Magnesium Alkaline Phosphatase Lactate Dehydrogenase Total Creatine Kinase Troponin T Total Protein Albumin LDL Cholesterol Direct HDL Cholesterol Arterial Blood Glucose Arterial Blood Ionized Calcium Urine WBC (Auto) Urine Creatinine Ur Creatinine 24 Hour Urine Total Protein Crossmatch 03/25/20 03/25/20 03/25/20 06:25 15:39 15:55 WBC RBC Hgb Hct MCV MCHC RDW Plt Count Lymph % (Auto) Lymph # (Auto) [place] # (Auto) Seg Neuts % (Manual) Lymphocytes % (Manual) Nucleated RBC % Seg Neutrophils # Seg Neutrophils # Man Lymphocytes # (Manual) Monocytes # (Manual) PT INR APTT 79.3 H* ABG pH POC ABG pO2 ABG pO2 ABG HCO3 ABG O2 Saturation ABG Base Excess ABG Hemoglobin ABG Potassium ABG Chloride ABG Glucose Oxyhemoglobin Sodium Potassium Chloride Carbon Dioxide BUN 54 H Creatinine 3.1 H Glucose 112 H POC Glucose 111 H Calcium 8.3 L Phosphorus 4.90 H Magnesium Alkaline Phosphatase Lactate Dehydrogenase Total Creatine Kinase Troponin T Total Protein Albumin LDL Cholesterol Direct HDL Cholesterol Arterial Blood Glucose Arterial Blood Ionized Calcium Urine WBC (Auto) Urine Creatinine Ur Creatinine 24 Hour Urine Total Protein Crossmatch 03/25/20 03/26/20 03/26/20 23:40 00:32 06:31 WBC RBC Hgb Hct MCV MCHC RDW Plt Count Lymph % (Auto) Lymph # (Auto) [place] # (Auto) Seg Neuts % (Manual) Lymphocytes % (Manual) Nucleated RBC % Seg Neutrophils # Seg Neutrophils # Man Lymphocytes # (Manual) Monocytes # (Manual) PT INR APTT 83.1 H* ABG pH POC ABG pO2 ABG pO2 ABG HCO3 ABG O2 Saturation ABG Base Excess ABG Hemoglobin ABG Potassium ABG Chloride ABG Glucose Oxyhemoglobin Sodium Potassium 3.2 L Chloride Carbon Dioxide BUN 63 H Creatinine 3.6 H Glucose POC Glucose 115 H Calcium 8.1 L Phosphorus 5.60 H Magnesium Alkaline Phosphatase Lactate Dehydrogenase Total Creatine Kinase Troponin T Total Protein Albumin LDL Cholesterol Direct HDL Cholesterol Arterial Blood Glucose Arterial Blood Ionized Calcium Urine WBC (Auto) Urine Creatinine Ur Creatinine 24 Hour Urine Total Protein Crossmatch 03/26/20 03/26/20 03/26/20 13:23 13:33 14:18 WBC RBC Hgb Hct MCV MCHC RDW Plt Count Lymph % (Auto) Lymph # (Auto) [place] # (Auto) Seg Neuts % (Manual) Lymphocytes % (Manual) Nucleated RBC % Seg Neutrophils # Seg Neutrophils # Man Lymphocytes # (Manual) Monocytes # (Manual) PT INR APTT 75.5 H* ABG pH POC ABG pO2 ABG pO2 ABG HCO3 ABG O2 Saturation ABG Base Excess ABG Hemoglobin ABG Potassium ABG Chloride ABG Glucose Oxyhemoglobin Sodium Potassium Chloride Carbon Dioxide BUN Creatinine Glucose POC Glucose 107 H Calcium Phosphorus Magnesium Alkaline Phosphatase Lactate Dehydrogenase Total Creatine Kinase Troponin T Total Protein Albumin LDL Cholesterol Direct HDL Cholesterol Arterial Blood Glucose Arterial Blood Ionized Calcium Urine WBC (Auto) Urine Creatinine 63.7 H Ur Creatinine 24 Hour 0.4 L Urine Total Protein Crossmatch 03/27/20 03/27/20 03/27/20 05:26 11:22 12:08 WBC RBC Hgb Hct MCV MCHC RDW Plt Count Lymph % (Auto) Lymph # (Auto) [place] # (Auto) Seg Neuts % (Manual) Lymphocytes % (Manual) Nucleated RBC % Seg Neutrophils # Seg Neutrophils # Man Lymphocytes # (Manual) Monocytes # (Manual) PT INR APTT ABG pH POC ABG pO2 ABG pO2 ABG HCO3 ABG O2 Saturation ABG Base Excess ABG Hemoglobin ABG Potassium ABG Chloride ABG Glucose Oxyhemoglobin Sodium Potassium Chloride Carbon Dioxide BUN 70 H Creatinine 3.9 H Glucose 67 L POC Glucose 44 L Calcium 8.3 L Phosphorus 6.40 H Magnesium Alkaline Phosphatase Lactate Dehydrogenase 255 H Total Creatine Kinase Troponin T Total Protein Albumin LDL Cholesterol Direct HDL Cholesterol Arterial Blood Glucose Arterial Blood Ionized Calcium Urine WBC (Auto) Urine Creatinine Ur Creatinine 24 Hour Urine Total Protein Crossmatch 03/27/20 03/27/20 12:29 14:31 WBC RBC Hgb Hct MCV MCHC RDW Plt Count Lymph % (Auto) Lymph # (Auto) [place] # (Auto) Seg Neuts % (Manual) Lymphocytes % (Manual) Nucleated RBC % Seg Neutrophils # Seg Neutrophils # Man Lymphocytes # (Manual) Monocytes # (Manual) PT INR APTT ABG pH POC ABG pO2 ABG pO2 ABG HCO3 ABG O2 Saturation ABG Base Excess ABG Hemoglobin ABG Potassium ABG Chloride ABG Glucose Oxyhemoglobin Sodium Potassium Chloride Carbon Dioxide BUN Creatinine Glucose POC Glucose 53 L 132 H Calcium Phosphorus Magnesium Alkaline Phosphatase Lactate Dehydrogenase Total Creatine Kinase Troponin T Total Protein Albumin LDL Cholesterol Direct HDL Cholesterol Arterial Blood Glucose Arterial Blood Ionized Calcium Urine WBC (Auto) Urine Creatinine Ur Creatinine 24 Hour Urine Total Protein Crossmatch Allied health notes reviewed: nursing
--- NOTE | 2020-03-27 15:25 | Ultrasound Report ---
US chest INDICATION / CLINICAL INFORMATION: Left pleural effusion.. COMPARISON: Chest radiograph from 03/20/2020 FINDINGS: Examination is limited due to body habitus and overlying bandages. There is a 6.3 x 5.4 x 2.9 cm foca l area of hypoechogenicity in the left upper quadrant. IMPRESSION: 6.3 cm focal area of hypoechogenicity in the left upper quadrant. This may represent a focal area of fluid in the left upper quadrant, though the study is limited by overlying bandage material. Consider further evaluation with CT, as clinically indicated. Signer Name: Wayne Santiago MD Signed: 03/27/2020 3:21 PM Workstation Name: [id number]
--- NOTE | 2020-03-27 16:24 | Progress Note ---
Assessment and Plan Assessment and plan: Assessment and plan: Patient is a 79-year-old male with a past medical history of encephalopathy, hypertension, generalized weakness, diabetes type 2, chronic lipidemia, DVT, respiratory failure with hypoxia, CVA, and CKD presents from longterm with complaint of sepsis with hypotension, alteration mental status, and her labs collected yesterday that resulted today showing a WBC count of 36. Of note patient was recently discharged from the hospital with ertapenem 1 g IV daily ESBL E. coli bacteremia with started on March 11 with plan in date March 21 via PICC line Patient unfortunately continues to worsen despite antibiotic treatment is nonverbal not able to follow any commands and now experiencing multiorgan failure. halfway vital signs BP of 66/36, heart rate 62, respiratory rate 16, blood glucose 230, and patient presents on 3 L of nasal cannula oxygen satting 98% Patient had a negative Covid test during admission here March 02. 03/17 Patient also found to have acute kidney injury with acute tubular necrosis, toxic metabolic encephalopathy, metabolic acidosis and hypothermia. The patient is critically ill with a poor prognosis, sepsis protocol was initiated with an ICU admission. 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 Unfortunately bicarb drip had to be held due to PICC line compatibility. A new PICC line has been inserted this morning. Admitting physician did speak with the son and discussed prognosis. I did also call the son this morning who informs me that the brother who is physician is coming into town and will give us further recommendation on arrival. Patient has been started on a third pressor which is epinephrine at this time. To my examination awaiting nephrology evaluation. We will proceed with giving additional 2 L of fluids and also obtain a stat echocardiogram to see what patient's cardiac level is. Based on ejection fraction patient may benefit from dobutamine. Will place BiPAP on standby and if need be and family does not opposed to continued full code we will proceed with likely intubation so the patient can be adequately volume resuscitated. -Continue empiric antibiotic coverage. ID consultation. Critical care assistance and input noted. Fluid Resuscitation As Noted above Continue Diet. Change IV access for triple-lumen PICC line. Will follow cultures. We will also obtain wound care consultation. 03/18: Continue current management, may need dialysis but not a candidate for HD due to 3 Pressors. NO Diarrhea at this time. If not improving respiratory lopez may need Intubation. 03/19: Continue supportive care, mental status showing some improvement, still on BIPAP. BP improving will stop Epi and bring down to 2 pressors. Awaiting ECHO. IF continues to have worsening Renal function, May need transfer to [facility] if unable to perform HD. Patients son updated of current clinically status. 03/20: Right femoral catheter-vas cath Placed for HD. Hypokalemia to be corrected, will give Potassium 20meq. Continue IV abx, no growth so far noted, wean pressors as tolerated, may consider adding Midodrine. WBC trending down. Prior noted Ecoli Bactermia is not noted so far on the blood culture. Continue HD as tolerated, Sodium bicarb drip due to acidosis. 03/21. He has no complaints today. Patient continues to ask when he will be discharged. Labs showed persistent hypokalemia. Continue potassium replacement. Hemoglobin 6.0. Patient will get transfused 1 unit PRBC. 03/22. Hemoglobin stable today. Vascular surgery consulted for femoral line replacement 03/23. Patient seen in the BiPAP. Still has diarrhea and is on vancomycin. Afebrile overnight. Labs reviewed 03/24. Patient may need permacath placement on Friday. 24-hour urine collection ordered as per renal. Monitor rectal tube output closely. PT/OT 03/25. Patient seen and evaluated this morning. He has no complaints. Needs to have right femoral line removed permacath placed on Friday. Nephrology recommendations appreciated. 24-hour urine collection yet to commence as per RN . Steroids tapered off. 03/26. Patient seen and examined at bedside this morning. Has no complaints today. Plan is to have permacath placement tomorrow. He will need to have hemodialysis chair arrangement prior to discharge. 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 Hematology consulted for thrombocytopenia and leukocytosis. Patient remains on argatroban but will be held temporarily for procedure. 03/27. 79-year-old male admitted 11 days ago with lethargy and altered mental status. Patient found to have septic shock, started on antibiotics and transferred to the ICU. While in the ICU, patient was on pressors. Patient subsequently had ALEJANDRO which failed to improve with conservative measures for now is on hemodialysis. Patient had a right femoral line placed for hemodialysis at that time. Stay in the ICU was complicated with pressure medication infection patient is currently on vancomycin plan ID is following. Currently improved while in the ICU and was referred to the medical floors. Patient passed a swallow evaluation will started on diet. Patient also have thrombocytopenia and heparin was discontinued. Fondaparinux not possible as patient has renal disease. Patient is currently argatroban. Hematology is consulted as patient has leukocytosis from admission. Need to rule out CML. Although ongoing issues at this time is active C. difficile infection for which the patient is on vancomycin and ID is following, patient is to have permacath placement for hemodialysis and will need hemodialysis chair to be arranged prior to discharge. Patient will be going to a facility when hemodialysis chair has been set up. Patient seen and examined at bedside this morning. Plan to have permacath placement today. Called patient's son on the number provided but no answer so I left a voicemail. Assessment and plan Septic shock This has resolved C. difficile infection Continue p.o. vancomycin 250 mg every 6 hours for 14 days ID recommendations appreciated Anemia OF Chronic Disease Monitor hemoglobin Transfused as needed to hemoglobin 7 Electrolyte abnormalities-hypokalemia, hypomagnesemia-replete as needed Acute renal failure likely due to ischemic ATN Now on hemodialysis. Nephrology recommendations appreciated Permacath placement still pending. Vascular both Metabolic Acidosis Resolved. Discontinue sodium bicarb and monitor Acute hypoxic Respiratory failure. Continue oxygen supplementation Acute toxic metabolic encephalopathy Resolved Ruled out COVID-19 Hypothermia Resolved Thrombocytopenia Possibly from ongoing infection vs HIT Trend platelets HIT antibody pending Argatroban for now Nephrology oncology on board Leukocytosis Stress induced - steroids effect vs infection vs leukemia? Monitor for now Hematology oncology consulted PT/OT-back to facility DVT prophylaxis - Argatroban for now Patient is full code History Interval history: Patient seen and examined at bedside this morning. Plan to have HD catheter placed today Try to call son today but could not get them on the phone. Left a voicemail Hospitalist Physical - Physical exam Narrative exam: VITAL SIGNS: Reviewed. GENERAL: Awake HEAD: No signs of head trauma. EYES: Pupils are equal. MOUTH: Oropharynx is normal otherwise dry. NECK: No adenopathy, no JVD. CHEST: Chest with diminished breath sounds bilaterally. No wheezes, rales, or rhonchi. CARDIAC: Regular rate and rhythm. S1 and S2, without murmurs, gallops, or rubs. VASCULAR: chronic Edema. Peripheral pulses normal and equal in all extremities. ABDOMEN: Soft, non tender and non distended. No rebound or guarding, and no masses palpated. Bowel Sounds normal. MUSCULOSKELETAL: Chronic venous changes bilateral lower ext NEUROLOGIC EXAM: Awake and alert SKIN: Multiple exfoliative rash, multiple pressure ulcers, detail exam as docu mented in skin assessment - Constitutional Vitals: Temp Pulse Resp BP Pulse Ox 97.6 F 78 18 132/62 97 03/27/20 15:25 03/27/20 16:00 03/27/20 15:25 03/27/20 16:00 03/27/20 10:00 HEART Score - HEART Score Troponin: Troponin T 0.047 ng/mL (0.00-0.029) H D 03/16/20 22:25 Results - Labs CBC & Chem 7: 03/24/20 05:19 03/27/20 05:26 Labs: Laboratory Last Values WBC 28.6 K/mm3 (4.5-11.0) H 03/24/20 05:19 RBC 3.57 M/mm3 (3.65-5.03) L 03/24/20 05:19 Hgb 10.7 gm/dl (11.8-15.2) L 03/24/20 05:19 Hct 33.3 % (35.5-45.6) L 03/24/20 05:19 MCV 93 fl (84-94) 03/24/20 05:19 MCH 30 pg (28-32) 03/24/20 05:19 MCHC 32 % (32-34) 03/24/20 05:19 RDW 18.4 % (13.2-15.2) H 03/24/20 05:19 Plt Count 94 K/mm3 (140-440) L 03/24/20 05:19 Lymph % (Auto) 4.0 % (13.4-35.0) L 03/24/20 05:19 [place] % (Auto) 3.2 % (0.0-7.3) 03/24/20 05:19 Eos % (Auto) 0.1 % (0.0-4.3) 03/24/20 05:19 Baso % (Auto) 0.3 % (0.0-1.8) 03/24/20 05:19 Lymph # (Auto) 1.1 K/mm3 (1.2-5.4) L 03/24/20 05:19 [place] # (Auto) 0.9 K/mm3 (0.0-0.8) H 03/24/20 05:19 Eos # (Auto) 0.0 K/mm3 (0.0-0.4) 03/24/20 05:19 Baso # (Auto) 0.1 K/mm3 (0.0-0.1) 03/24/20 05:19 Add Manual Diff Complete 03/23/20 09:35 Total Counted 100 03/23/20 09:35 Seg Neutrophils % Installation Manager 03/24/20 05:19 Seg Neuts % (Manual) 94.0 % (40.0-70.0) H 03/23/20 09:35 Band Neutrophils % 3.0 % 03/23/20 09:35 Lymphocytes % (Manual) 2.0 % (13.4-35.0) L 03/23/20 09:35 Reactive Lymphs % (Man) 0 % 03/23/20 09:35 Monocytes % (Manual) 1.0 % (0.0-7.3) 03/23/20 09:35 Eosinophils % (Manual) 0 % (0.0-4.3) 03/23/20 09:35 Basophils % (Manual) 0 % (0.0-1.8) 03/23/20 09:35 Metamyelocytes % 0 % 03/23/20 09:35 Myelocytes % 0 % 03/23/20 09:35 Promyelocytes % 0 % 03/23/20 09:35 Blast Cells % 0 % 03/23/20 09:35 Nucleated RBC % 1.0 % (0.0-0.9) H 03/23/20 09:35 Seg Neutrophils # 26.4 K/mm3 (1.8-7.7) H 03/24/20 05:19 Seg Neutrophils # Man 25.3 K/mm3 (1.8-7.7) H 03/23/20 09:35 Band Neutrophils # 0.8 K/mm3 03/23/20 09:35 Lymphocytes # (Manual) 0.5 K/mm3 (1.2-5.4) L 03/23/20 09:35 Abs React Lymphs (Man) 0.0 K/mm3 03/23/20 09:35 Monocytes # (Manual) 0.3 K/mm3 (0.0-0.8) 03/23/20 09:35 Eosinophils # (Manual) 0.0 K/mm3 (0.0-0.4) 03/23/20 09:35 Basophils # (Manual) 0.0 K/mm3 (0.0-0.1) 03/23/20 09:35 Metamyelocytes # 0.0 K/mm3 03/23/20 09:35 Myelocytes # 0.0 K/mm3 03/23/20 09:35 Promyelocytes # 0.0 K/mm3 03/23/20 09:35 Blast Cells # 0.0 K/mm3 03/23/20 09:35 Pathologist Review 03/16/20 14:22 WBC Morphology Not Reportable 03/23/20 09:35 Hypersegmented Neuts Not Reportable 03/23/20 09:35 Hyposegmented Neuts Not Reportable 03/23/20 09:35 Hypogranular Neuts Not Reportable 03/23/20 09:35 Smudge Cells Not Reportable 03/23/20 09:35 Toxic Granulation Not Reportable 03/23/20 09:35 Toxic Vacuolation Not Reportable 03/23/20 09:35 Dohle Bodies Not Reportable 03/23/20 09:35 Pelger-Huet Anomaly Not Reportable 03/23/20 09:35 Santiago Rods Not Reportable 03/23/20 09:35 Platelet Estimate Consistent w auto 03/23/20 09:35 Clumped Platelets Not Reportable 03/23/20 09:35 Plt Clumps, EDTA Not Reportable 03/23/20 09:35 Large Platelets Not Reportable 03/23/20 09:35 Giant Platelets Not Reportable 03/23/20 09:35 Platelet Satelliting Not Reportable 03/23/20 09:35 Plt Morphology Comment Not Reportable 03/23/20 09:35 RBC Morphology Not Reportable 03/23/20 09:35 Dimorphic RBCs Not Reportable 03/23/20 09:35 Polychromasia Few 03/23/20 09:35 Hypochromasia 1+ 03/23/20 09:35 Poikilocytosis Few 03/23/20 09:35 Anisocytosis 1+ 03/23/20 09:35 Microcytosis Not Reportable 03/23/20 09:35 Macrocytosis Not Reportable 03/23/20 09:35 Spherocytes Not Reportable 03/23/20 09:35 Pappenheimer Bodies Not Reportable 03/23/20 09:35 Sickle Cells Not Reportable 03/23/20 09:35 Target Cells Not Reportable 03/23/20 09:35 Tear Drop Cells Not Reportable 03/23/20 09:35 Ovalocytes Not Reportable 03/23/20 09:35 Helmet Cells Not Reportable 03/23/20 09:35 [place] Bodies Not Reportable 03/23/20 09:35 [place] Rings Not Reportable 03/23/20 09:35 Luis Alfredo Cells Few 03/23/20 09:35 Bite Cells Not Reportable 03/23/20 09:35 Crenated Cell Not Reportable 03/23/20 09:35 Elliptocytes Not Reportable 03/23/20 09:35 Acanthocytes (Spur) Not Reportable 03/23/20 09:35 Rouleaux Not Reportable 03/23/20 09:35 Hemoglobin C Crystals Not Reportable 03/23/20 09:35 Schistocytes Not Reportable 03/23/20 09:35 Malaria parasites Not Reportable 03/23/20 09:35 Isauro Bodies Not Reportable 03/23/20 09:35 Hem Pathologist Commnt No 03/23/20 09:35 PT 14.3 Sec. (12.2-14.9) 03/22/20 16:30 INR 1.09 (0.87-1.13) 03/22/20 16:30 APTT 75.5 Sec. (24.2-36.6) H* 03/26/20 13:33 Heparin Anti-Xa, Unfract Negative (Negative) 03/22/20 19:13 ABG pH 7.378 pH Units (7.350-7.450) 03/20/20 16:35 POC ABG pCO2 37.3 mmHg (32.0-48.0) 03/18/20 12:14 ABG pCO2 38.6 mm Hg 03/20/20 16:35 POC ABG pO2 67.4 mmHg (83-108) L 03/18/20 12:14 ABG pO2 63.9 mm Hg (80.0-90.0) L 03/20/20 16:35 POC ABG HCO3 14.1 03/18/20 12:14 ABG HCO3 22.2 mmol/L (20.0-26.0) 03/20/20 16:35 ABG O2 Saturation 90.9 % (95.0-99.0) L 03/20/20 16:35 ABG O2 Content 12.0 (0.0-44) 03/20/20 16:35 POC ABG Base Excess -13.0 03/18/20 12:14 ABG Base Excess -2.6 mmol/L (-2.0-3.0) L 03/20/20 16:35 ABG Hemoglobin 9.5 gm/dl (14.0-18.0) L 03/20/20 16:35 ABG Carboxyhemoglobin 1.3 % (0.0-5.0) 03/20/20 16:35 ABG Methemoglobin 0.5 % (0.0-1.5) 03/20/20 16:35 ABG Sodium 138.8 mmol/L (136.0-145.0) 03/18/20 12:14 ABG Potassium 3.3 mmol/L (3.40-4.50) L 03/18/20 12:14 ABG Chloride 112.0 mmol/L (98-107) H 03/18/20 12:14 ABG Glucose 355 mg/dL (65-95) H 03/18/20 12:14 Oxyhemoglobin 89.3 % (95.0-99.0) L 03/20/20 16:35 FiO2 35 % 03/20/20 16:35 Sodium 139 mmol/L (137-145) 03/27/20 05:26 Potassium 3.7 mmol/L (3.6-5.0) 03/27/20 05:26 Chloride 102.9 mmol/L (98-107) 03/27/20 05:26 Carbon Dioxide 25 mmol/L (22-30) 03/27/20 05:26 Anion Gap 15 mmol/L 03/27/20 05:26 BUN 70 mg/dL (9-20) H 03/27/20 05:26 Creatinine 3.9 mg/dL (0.8-1.3) H 03/27/20 05:26 Estimated GFR 18 ml/min 03/27/20 05:26 BUN/Creatinine Ratio 18 % 03/27/20 05:26 Glucose 67 mg/dL (75-100) L 03/27/20 05:26 POC Glucose 132 mg/dL (70-105) H 03/27/20 14:31 Lactic Acid 1.80 mmol/L (0.7-2.0) 03/16/20 Unknown Calcium 8.3 mg/dL (8.4-10.2) L 03/27/20 05:26 Phosphorus 6.40 mg/dL (2.5-4.5) H 03/27/20 05:26 Magnesium 1.80 mg/dL (1.7-2.3) 03/24/20 05:19 Total Bilirubin 0.20 mg/dL (0.1-1.2) 03/16/20 14:22 AST 22 units/L (5-40) 03/16/20 14:22 ALT 8 units/L (7-56) 03/16/20 14:22 Alkaline Phosphatase 224 units/L (35-129) H 03/16/20 14:22 Lactate Dehydrogenase 255 units/L (91-180) H 03/27/20 11:22 Total Creatine Kinase 373 units/L (55-170) H 03/17/20 11:13 Troponin T 0.047 ng/mL (0.00-0.029) H D 03/16/20 22:25 Total Protein 5.4 g/dL (6.3-8.2) L 03/16/20 14:22 Albumin 1.9 g/dL (3.9-5) L 03/16/20 14:22 Albumin/Globulin Ratio 0.5 % 03/16/20 14:22 Triglycerides 107 mg/dL (2-149) 03/16/20 14:23 Cholesterol 95 mg/dL (50-199) 03/16/20 14:23 LDL Cholesterol Direct 35 mg/dL (50-130) L 03/16/20 14:23 HDL Cholesterol 37 mg/dL (40-59) L 03/16/20 14:23 Cholesterol/HDL Ratio 2.56 % 03/16/20 14:23 Procalcitonin 9.59 ng/mL (<0.15) 03/17/20 18:53 Arterial Blood Glucose 355 mg/dL (65-95) H 03/18/20 12:14 Arterial Blood Ionized Calcium 4.5 mg/dL (4.6-5.3) L 03/18/20 12:14 Urine Color Yellow (Yellow) 03/20/20 13:30 Urine Turbidity Turbid (Clear) 03/20/20 13:30 Urine pH 5.0 (5.0-7.0) 03/20/20 13:30 Ur Specific [place] 1.011 (1.003-1.030) 03/20/20 13:30 Urine Protein 100 mg/dl mg/dL (Negative) 03/20/20 13:30 Urine Glucose (UA) Neg mg/dL (Negative) 03/20/20 13:30 Urine Ketones Neg mg/dL (Negative) 03/20/20 13:30 Urine Blood Mod (Negative) 03/20/20 13:30 Urine Nitrite Neg (Negative) 03/20/20 13:30 Urine Bilirubin Neg (Negative) 03/20/20 13:30 Urine Urobilinogen < 2.0 mg/dL (<2.0) 03/20/20 13:30 Ur Leukocyte Esterase Mod (Negative) 03/20/20 13:30 Urine WBC (Auto) 153.0 /HPF (0.0-6.0) H 03/20/20 13:30 Urine RBC (Auto) 130.0 /HPF (0.0-6.0) 03/20/20 13:30 U Epithel Cells (Auto) 1.0 /HPF (0-13.0) 03/20/20 13:30 Urine Bacteria (Auto) 2+ /HPF (Negative) 03/20/20 13:30 Urine WBC Clumps 3+ /HPF 03/17/20 11:40 Urine Mucus Few /HPF 03/20/20 13:30 Urine Yeast (Budding) 3+ /HPF 03/20/20 13:30 Urine Total Volume 700 ml 03/26/20 14:18 Urine Creatinine 63.7 mg/dL (0.1-20.0) H 03/26/20 14:18 Ur Creatinine 24 Hour 0.4 (0.8-2.8) L 03/26/20 14:18 Protein/Creatinin Ratio 2.35 03/17/20 Unknown Urine Sodium 53 mmol/L 03/17/20 Unknown Urine Total Protein 328 mg/dL (5-11.8) H 03/17/20 Unknown Random Vancomycin 8.4 ug/mL (0-40.0) 03/18/20 04:40 Heparin-induced Plt Ab Negative (Negative) 03/22/20 19:13 UF Heparin High Dose 0 % Release 03/22/20 19:13 LORETO UFH Low Dose 0.1 0 % Release 03/22/20 19:13 LORETO UFH Low Dose 0.5 0 % Release 03/22/20 19:13 C. difficile Tox (PCR) Positive (Negative) 03/19/20 23:59 Coronavirus (PCR) Negative (Negative) 03/17/20 09:03 Hepatitis A IgM Ab Non-reactive (NonReactive) 03/20/20 16:00 Hep Bs Antigen Non-reactive (Negative) 03/20/20 16:00 Hep B Core IgM Ab Non-reactive (NonReactive) 03/20/20 16:00 Hepatitis C Antibody Non-reactive (NonReactive) 03/20/20 16:00 Blood Type O POSITIVE 03/21/20 06:43 Antibody Screen Negative 03/21/20 06:43 Crossmatch See Detail 03/21/20 06:43 - Diagnostic Impressions Diagnostic Impressions: Echocardiogram 03/17/20 09:13 Transthoracic Echocardiogram Indication: Cardiogenic Shock BP: 126/62 Conclusions *Global left ventricular systolic function is normal. *Mild to moderate concentric left ventricular hypertrophy is observed. *The estimated ejection fraction is 55-60%. *The right ventricle is severely dilated. *The right ventricular global systolic function is moderately reduced. *Flattened in systole consistent with right ventricular pressure overload. *There is moderate aortic stenosis. *The mean gradient of the aortic valve is 20.93 mmHg. *Moderate aortic leaflet calcification is visualized. *There is mild aortic regurgitation. *There is mild mitral regurgitation. *There is mild tricuspid regurgitation. *The right ventricular systolic pressure is calculated at 46 mmHg. *There is trace pulmonic regurgitation. *A left pleural effusion is present. *There is no pericardial effusion. Findings Procedure Info: The study quality is good. Left Ventricle: The left ventricular chamber size is normal. Mild to moderate concentric left ventricular hypertrophy is observed. Global left ventricular systolic function is normal. The estimated ejection fraction is 55-60%. Abnormal left ventricular diastolic filling is observed, consistent with impaired relaxation. Left Atrium: The left atrium is normal in size with no visual thrombus identified. Right Ventricle: The right ventricle is severely dilated. The right ventricular global systolic function is moderately reduced. Flattened in systole consistent with right ventricular pressure overload. Right Atrium: The right atrium is moderately dilated. Aortic Valve: The aortic valve is trileaflet. Moderate aortic leaflet calcification is visualized. There is mild aortic regurgitation. There is moderate aortic stenosis. The mean gradient of the aortic valve is 20.93 mmHg. The peak instantaneous gradient of the aortic valve is 48.15 mmHg. The aortic valve area, by VTI's, is calculated at [id number] cm2. Mitral Valve: There is posterior mitral annular calcification. The mitral valve leaflets are mildly thickened. There is mild mitral regurgitation. There is no evidence of mitral stenosis. Tricuspid Valve: There is mild tricuspid regurgitation. The right ventricular systolic pressure is calculated at 46 mmHg. There is no tricuspid stenosis. Pulmonic Valve: The pulmonic valve appears normal. There is trace pulmonic regurgitation. There is no pulmonic stenosis. Pericardium: There is no pericardial effusion. A left pleural effusion is present. Aorta: The aorta appears normal. Pulmonary Artery: The main pulmonary artery appears normal. Venous: The inferior vena cava is dilated. There is less than 50% respiratory change in the inferior vena cava dimension. Measurements Chambers 2D Name Value Normal Range IVSd (2D) 1.24 cm (0.6 - 1.1) LVPWd (2D) 1.28 cm (0.6 - 1.1) LVIDd (2D) 4.39 cm (3.7 - 5.6) LVIDs (2D) 2.74 cm (2 - 3.8) LV FS (2D) 37.56 % - EF Teichholz (2D) 67.84 % - Ao root diameter (2D) 3.09 cm (2 - 3.7) Volumes/Mass Name Value Normal Range LA ESV SP 4CH (A/L) 61.48 ml - LA ESV SP 2CH (A/L) 74.82 ml - LA ESV BP (A/L) 70.19 ml - LA ESV BP (A/L) index 29.49 ml/m2 - LA ESV SP 4CH (MOD) 60.86 ml - LA ESV SP 2CH (MOD) 76.42 ml - LA ESV BP (MOD) 70.33 ml - LA ESV BP (MOD) index 29.55 ml/m2 - LV EDV SP 4CH (MOD) 54.09 ml - LV ESV SP 4CH (MOD) 19.25 ml - EF SP 4CH (MOD) 64.4 % - Diastolic/Systolic Function Name Value Normal Range MV E-wave Vmax 0.67 m/sec - MV deceleration time 137.49 msec - MV A-wave Vmax 0.88 m/sec - MV E:A ratio 0.77 ratio - Aortic Valve Name Value Normal Range AV Vmax 3.23 m/sec - AV VTI 54.14 cm - AV peak gradient 48.15 mmHg - AV mean gradient 20.93 mmHg - LVOT diameter 2.11 cm - LVOT Vmax 0.92 m/sec - LVOT VTI 17.92 cm - LVOT peak gradient 3.42 mmHg - LVOT mean gradient 1.46 mmHg - SV LVOT 62.51 ml - NAVIN (continuity Vmax) 1 cm2 - NAVIN (continuity VTI) 1.15 cm2 - AR PHT 720.82 msec - AR peak gradient 15.53 mmHg - Ascending Ao 3.71 cm - Tricuspid Valve Name Value Normal Range TV E-wave Vmax 0.51 m/sec - TR Vmax 2.8 m/sec - TR peak gradient 31.37 mmHg - RAP 15 mmHg - RVSP 46 mmHg - IVC diameter 2.4 cm (1.2 - 2.3) Pulmonic Valve/Qp:Qs Name Value Normal Range PV Vmax 1.09 m/sec - PV peak gradient 4.78 mmHg - RVOT Vmax 0.7 m/sec - RVOT VTI 13.89 cm - RVOT peak gradient 1.96 mmHg - PV acceleration time 95.15 msec - Cunningham/IV: Voiding Method Indwelling Catheter IV Catheter Type [right wrist] Peripheral IV IV Catheter Type [Right Trilysis Femoral] IV Catheter Type [Right Upper PICC Line arm] IV Catheter Type [Left Upper Mid-line arm] Active Medications - Current Medications Current Medications: Generic Name Dose Route Start Last Admin Trade Name Freq PRN Reason Stop Dose Admin Acetaminophen 650 mg 03/19/20 18:21 03/19/20 18:39 Tylenol FEEDTUBE 650 mg Q6H PRN Administration Pain, Mild (1-3) Albuterol 2.5 mg 03/16/20 17:00 Proventil IH Q3HRT PRN Shortness Of Breath Lipase/Protease/Amylase 1 each 03/17/20 17:12 Pancrescooby [place] 10,500 Unit FEEDTUBE PRN PRN For Clogged Feeding Tube Epoetin Colin 10,000 unit 03/24/20 17:00 Procrit IV DAYLIN IDRIS Famotidine 20 mg 03/28/20 10:00 Pepcid PO DAILY [facility] Heparin Sodium (Porcine) 5,000 unit 03/28/20 10:00 Heparin SUB-Q Q12HR [facility] Hydromorphone HCl 0.25 mg 03/16/20 17:30 Dilaudid IV Q4H PRN Pain, Moderate (4-6) Hydrophilic Ointment 1 applic 03/21/20 07:50 03/21/20 16:38 Aquaphor TP 1 applic Q12HR PRN Administration DRY SKIN Sodium Chloride 100 mls @ 999 mls/hr 03/26/20 16:20 Nacl 0.9% IV DAYLIN PRN Hypotension Argatroban 250 mg/ Sodium 250 mls @ 3.51 mls/hr 03/27/20 12:00 03/27/20 12:26 Chloride IV 03/28/20 09:00 0.5 mcg/kg/min TITR IDRIS 3.51 mls/hr Administration Protocol 0.5 MCG/KG/MIN Insulin Glargine 20 units 03/18/20 22:00 03/26/20 22:00 Lantus SUB-Q Not Given QHS [facility] Insulin Human Lispro 0 unit 03/18/20 12:00 03/27/20 12:48 Humalog SUB-Q Not Given Q6HR [facility] Protocol Methylprednisolone Sodium Succinate 20 mg 03/27/20 12:00 03/27/20 11:46 Solu-Medrol IV 03/30/20 11:59 20 mg Q24HR IDRIS Administration Midodrine 10 mg 03/20/20 12:00 03/27/20 11:46 Proamatine PO 10 mg TID@0800,1200,1600 IDRIS Administration Simple Syrup 15 ml 03/17/20 17:12 Simple Syrup FEEDTUBE PRN PRN Hypoglycemia Simple Syrup 30 ml 03/17/20 17:12 Simple Syrup FEEDTUBE PRN PRN Hypoglycemia Sodium Bicarbonate 325 mg 03/17/20 17:12 Sodium Bicarbonate FEEDTUBE PRN PRN For Clogged Feeding Tube Sodium Chloride 10 ml 03/16/20 22:00 03/27/20 09:32 Sodium Chloride Flush Syringe 10 Ml IV 10 ml BID IDRIS Administration Sodium Chloride 10 ml 03/16/20 17:00 Sodium Chloride Flush Syringe 10 Ml IV PRN PRN LINE FLUSH Vancomycin HCl 250 mg 03/20/20 12:00 03/27/20 11:46 Vancomycin Po PO 04/03/20 06:01 250 mg Q6HR IDRIS Administration Nutrition/Malnutrition Assess - Dietary Evaluation Nutrition/Malnutrition Findings: Nutrition Notes Start: 03/18/20 09:15 Freq: Status: Active Protocol: Document 03/27/20 13:24 BALJINDER (Rec: 03/27/20 13:28 BALJINDER [id number]) Nutrition Notes Initial or Follow up Reassessment Current Diagnosis Acute Kidney Injury,CKD(stage I-IV),Diabetes,Hypertension Other Pertinent Diagnosis Septic shock, debility, hypothermia, COVID-19 (-) Current Diet NPO Labs/Tests BUN 70 Cr 3.9 POC BG 53 Phos 6.4 Pertinent Medications Solu-Medrol Height 5 ft 11 in Weight 117 kg [place] Body Weight (kg) 78.18 BMI 35.9 Weight Status Obese Subjective/Other Information FU for intakes. Pt states he is eating fine but unable to say how much. Pt does not speak clearly. RN unsure of intake yesterday. Pt was NPO for procedure today. Burn Absent Trauma Absent GI Symptoms None Skin Integrity/Comment dry, flaky skin, WOC consulted Current % PO Negligible Minimum of two criteria No Fluid Accumulation Moderate to Severe (severe) #1 Nutrition Diagnosis Inadequate oral intake Diagnosis Progress(for reassessment Continues documentation) Is patient on ventilator? No Is Patient Ambulatory and/or Out of Bed No REE-([facility]-confined to bed) 2282.928 Kcal/Kg value to use for calculation 16 Approximate Energy Requirements Using 1872 kcal/Kg Calculation Used for Recommendations Kcal/kg Additional Notes Protein: 80-120g/kg (0.8-1.2g/ kg using AdjBW 100kg) Fluid: 1ml/kcal or per MD Nutrition Intervention Change Diet Order: Pureed when medically able Goal #1 Diet advancement Goal #2 Meet at least 80% of energy and protein needs via PO intakes Anticipated Discharge Needs: Pureed Follow-Up By: 03/29/20 Additional Comments FU for diet advancement and intakes
[2020-03-27 16:46] LABS: Hematocrit 30.8 % (35.5-45.6); Hemoglobin 10.2 gm/dl (11.8-15.2); Mean Corpuscular HGB Conc 33 % (32-34); Mean Corpuscular Volume 93 fl (84-94); Platelet Count 101 K/mm3 (140-440); Red Cell Distribution Width 17.6 % (13.2-15.2)
[2020-03-27 17:52] LABS: Basophils % (Manual) 0 % (0.0-1.8); Eosinophils % (Manual) 0 % (0.0-4.3); RBC Morphology Normal; Total Cells Counted 100
[2020-03-27] MEDS ORDERED: INSULIN GLARGINE 100 UNITS/ML SUB-Q SCH (22:00)
[2020-03-28 01:16] LABS: Hematocrit 28.2 % (35.5-45.6); Hemoglobin 9.4 gm/dl (11.8-15.2); Mean Corpuscular HGB Conc 33 % (32-34); Mean Corpuscular Volume 92 fl (84-94); Red Blood Count 3.05 M/mm3 (3.65-5.03)
[2020-03-28 01:17] LABS: Platelet Count 98 K/mm3 (140-440)
[2020-03-28 01:18] LABS: Basophils # (Auto) 0.2 K/mm3 (0.0-0.1); Basophils % (Auto) 1.1 % (0.0-1.8); Eosinophils # (Auto) 0.1 K/mm3 (0.0-0.4); Eosinophils % (Auto) 0.4 % (0.0-4.3); Lymphocytes # (Auto) 0.7 K/mm3 (1.2-5.4); Lymphocytes % (Auto) 4.3 % (13.4-35.0); Monocytes # (Auto) 0.8 K/mm3 (0.0-0.8); Monocytes % (Auto) 4.4 % (0.0-7.3)
[2020-03-28] MEDS: VANCOMYCIN 250 MG/10 ML ORAL LIQD PO SCH ×3 (05:47→17:28)
[2020-03-28 06:29] LABS: Calcium 8.1 mg/dL (8.4-10.2)
[2020-03-28] MEDS: MIDODRINE 5 MG TAB PO SCH ×4 (08:00→16:42)
[2020-03-28] MEDS: INSULIN LISPRO 100 UNIT/ML VIAL 3 mL SUB-Q SCH ×4 (08:00→21:24)
--- NOTE | 2020-03-28 09:36 | Progress Note ---
Assessment and Plan Patient awake. Weak. Patient is on room air.Not using his O2. O2 saturation 97%.O2 saturation fluctuating. Recommend Keep O2 2 litres via nasal canula. Patient denies chest pain, shortness of breath or cough. Patient afebrile. Has leukocytosis. Patient is on vancomycin. Chest xray done 03/20/20 reported moderate left pleural effusion with similar bibasilar opacities. No pneumothorax. ultrasound of chest 03/27/20 reported 6.3 cm focal area of hypoechogenicity in the left upper quadrant. This may represent a focal area of fluid in the left upper quadrant, though the study is limited by overlying bandage material. Consider further evaluation with CT, as clinically indicated. - Patient Problems (1) Sepsis Current Visit: No Status: Acute Plan to address problem: Patient is on Vancomycin. (2) Suspected 2019 novel coronavirus infection Current Visit: No Status: Acute Plan to address problem: Lu virus reported negative. (3) Acute kidney injury (ALEJANDRO) with acute tubular necrosis (ATN) Current Visit: Yes Status: Acute Plan to address problem: Management as per nephrology. (4) History of ESBL E. coli infection Current Visit: Yes Status: Acute Plan to address problem: Management as per infectious diseases. (5) Toxic metabolic encephalopathy Current Visit: Yes Status: Acute Plan to address problem: Management as per primary care. (6) Cellulitis of right leg Current Visit: No Status: Acute Plan to address problem: Patient is on vancomycin. (7) Pleural effusion, left Current Visit: Yes Status: Acute Plan to address problem: ultrasound of chest 03/27/20 reported 6.3 cm focal area of hypoechogenicity in the left upper quadrant. This may represent a focal area of fluid in the left upper quadrant, though the study is limited by overlying bandage material. Consider further evaluation with CT, as clinically indicated. Repeat chest xray in few days and decide about further Plan. (8) Pulmonary infiltrates on CXR Current Visit: Yes Status: Acute Plan to address problem: Patient is on vancomycin. 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 Subjective Date of service: 03/28/20 Principal diagnosis: Acute hypoxemic respiratory failure; Septic shock; Ac. encephalopathy; ALEJANDRO Interval history: Patient awake. Weak. Patient is on room air.Not using his O2. O2 saturation 95%.O2 saturation fluctuating. Recommend Keep O2 2 litres via nasal canula. Patient denies chest pain, shortness of breath or cough. Patient afebrile. Has leukocytosis. Patient is on vancomycin. Chest xray done 03/20/20 reported moderate left pleural effusion with similar bibasilar opacities. No pneumothorax. ultrasound of chest 03/27/20 reported 6.3 cm focal area of hypoechogenicity in the left upper quadrant. This may represent a focal area of fluid in the left upper quadrant, though the study is limited by overlying bandage material. Consider further evaluation with CT, as clinically indicated. Objective Vital Signs - 12hr 03/28/20 03/28/20 03/28/20 00:02 04:11 04:14 Temperature 97.9 F 97.8 F Pulse Rate 78 80 Respiratory 12 16 Rate Blood Pressure 155/75 167/100 158/101 Blood Pressure [Right] O2 Sat by Pulse 98 97 Oximetry 03/28/20 07:34 Temperature 97.9 F Pulse Rate 78 Respiratory 16 Rate Blood Pressure Blood Pressure 156/98 [Right] O2 Sat by Pulse 95 Oximetry Constitutional: no acute distress, alert, appears uncomfortable, other (elderly obese male with mild respiratory effort at rest) Eyes: non-icteric ENT: oropharynx dry Neck: supple, no JVD, other (large neck circumference) Effort: mildly labored Ascultation: Bilateral: diminished breath sounds, rhonchi Percussion: Bilateral: not dull Cardiovascular: regular rate and rhythm Gastrointestinal: normoactive bowel sounds, soft, non-tender, non-distended (protuberant) Integumentary: rash (Generalized skin flaking/with superficial skin sloughing without erythema or warmth on chest wall), decubitus ulcer (see RN/WCN notes for details) Extremities: pulses normal, cool, other (Patient has stasis dermatitis and wounds on both legs.) Neurologic: non-focal exam (grossly), pupils equal and round, CN II-XII normal Psychiatric: other (flat affect to depressed at times) CBC and BMP: 03/28/20 00:52 03/28/20 05:49 ABG, PT/INR, D-dimer: ABG ABG pH 7.378 pH Units (7.350-7.450) 03/20/20 16:35 POC ABG pCO2 37.3 mmHg (32.0-48.0) 03/18/20 12:14 ABG pCO2 38.6 mm Hg 03/20/20 16:35 POC ABG pO2 67.4 mmHg (83-108) L 03/18/20 12:14 ABG pO2 63.9 mm Hg (80.0-90.0) L 03/20/20 16:35 POC ABG HCO3 14.1 03/18/20 12:14 ABG O2 Saturation 90.9 % (95.0-99.0) L 03/20/20 16:35 PT/INR, D-dimer PT 14.3 Sec. (12.2-14.9) 03/22/20 16:30 INR 1.09 (0.87-1.13) 03/22/20 16:30 Abnormal lab findings: Abnormal Labs 03/16/20 03/16/20 03/16/20 14:22 14:22 14:23 WBC 32.2 H RBC 2.93 L Hgb 8.9 L Hct 28.2 L MCV 96 H MCHC RDW 18.1 H Plt Count Lymph % (Auto) Lymph # (Auto) [place] # (Auto) Baso # (Auto) Seg Neutrophils % Seg Neuts % (Manual) 82.0 H Lymphocytes % (Manual) 10.0 L Nucleated RBC % 3.0 H Seg Neutrophils # Seg Neutrophils # Man 26.4 H Lymphocytes # (Manual) Monocytes # (Manual) 1.9 H PT INR APTT ABG pH POC ABG pO2 ABG pO2 ABG HCO3 ABG O2 Saturation ABG Base Excess ABG Hemoglobin ABG Potassium ABG Chloride ABG Glucose Oxyhemoglobin Sodium Potassium 3.3 L Chloride 108.9 H Carbon Dioxide 12 L BUN 59 H Creatinine 5.9 H Glucose 142 H POC Glucose Calcium 7.7 L Phosphorus Magnesium Alkaline Phosphatase 224 H Lactate Dehydrogenase Total Creatine Kinase Troponin T 0.033 H C-Reactive Protein Total Protein 5.4 L Albumin 1.9 L LDL Cholesterol Direct 35 L HDL Cholesterol 37 L Arterial Blood Glucose Arterial Blood Ionized Calcium Urine WBC (Auto) Urine Creatinine Ur Creatinine 24 Hour Urine Total Protein Crossmatch 03/16/20 03/16/20 03/16/20 14:27 19:50 21:15 WBC RBC Hgb Hct MCV MCHC RDW Plt Count Lymph % (Auto) Lymph # (Auto) [place] # (Auto) Baso # (Auto) Seg Neutrophils % Seg Neuts % (Manual) Lymphocytes % (Manual) Nucleated RBC % Seg Neutrophils # Seg Neutrophils # Man Lymphocytes # (Manual) Monocytes # (Manual) PT 17.2 H INR 1.37 H APTT 51.3 H ABG pH POC ABG pO2 ABG pO2 ABG HCO3 ABG O2 Saturation ABG Base Excess ABG Hemoglobin ABG Potassium ABG Chloride ABG Glucose Oxyhemoglobin Sodium Potassium Chloride Carbon Dioxide BUN Creatinine Glucose POC Glucose Calcium Phosphorus Magnesium Alkaline Phosphatase Lactate Dehydrogenase Total Creatine Kinase Troponin T 0.031 H C-Reactive Protein Total Protein Albumin LDL Cholesterol Direct HDL Cholesterol Arterial Blood Glucose Arterial Blood Ionized Calcium Urine WBC (Auto) > 182.0 H Urine Creatinine Ur Creatinine 24 Hour Urine Total Protein Crossmatch 03/16/20 03/17/20 03/17/20 22:25 11:13 11:13 WBC 34.4 H RBC 2.60 L Hgb 7.8 L Hct 25.2 L MCV 97 H MCHC 31 L RDW 18.7 H Plt Count Lymph % (Auto) Lymph # (Auto) [place] # (Auto) Baso # (Auto) Seg Neutrophils % Seg Neuts % (Manual) 88.0 H Lymphocytes % (Manual) 1.0 L Nucleated RBC % 13.0 H Seg Neutrophils # Seg Neutrophils # Man 30.3 H Lymphocytes # (Manual) 0.3 L Monocytes # (Manual) PT INR APTT ABG pH POC ABG pO2 ABG pO2 ABG HCO3 ABG O2 Saturation ABG Base Excess ABG Hemoglobin ABG Potassium ABG Chloride ABG Glucose Oxyhemoglobin Sodium Potassium 3.3 L Chloride 108.5 H Carbon Dioxide 16 L BUN 57 H Creatinine 5.5 H Glucose 325 H POC Glucose Calcium 7.0 L Phosphorus Magnesium Alkaline Phosphatase Lactate Dehydrogenase Total Creatine Kinase Troponin T 0.047 H D C-Reactive Protein Total Protein Albumin LDL Cholesterol Direct HDL Cholesterol Arterial Blood Glucose Arterial Blood Ionized Calcium Urine WBC (Auto) Urine Creatinine Ur Creatinine 24 Hour Urine Total Protein Crossmatch 03/17/20 03/17/20 03/17/20 11:13 11:40 Unknown WBC RBC Hgb Hct MCV MCHC RDW Plt Count Lymph % (Auto) Lymph # (Auto) [place] # (Auto) Baso # (Auto) Seg Neutrophils % Seg Neuts % (Manual) Lymphocytes % (Manual) Nucleated RBC % Seg Neutrophils # Seg Neutrophils # Man Lymphocytes # (Manual) Monocytes # (Manual) PT INR APTT ABG pH 7.229 L POC ABG pO2 ABG pO2 98.3 H ABG HCO3 14.6 L ABG O2 Saturation ABG Base Excess -12.0 L ABG Hemoglobin 8.9 L ABG Potassium ABG Chloride ABG Glucose Oxyhemoglobin Sodium Potassium Chloride Carbon Dioxide BUN Creatinine Glucose POC Glucose Calcium Phosphorus Magnesium Alkaline Phosphatase Lactate Dehydrogenase Total Creatine Kinase 373 H Troponin T C-Reactive Protein Total Protein Albumin LDL Cholesterol Direct HDL Cholesterol Arterial Blood Glucose Arterial Blood Ionized Calcium Urine WBC (Auto) > 182.0 H Urine Creatinine Ur Creatinine 24 Hour Urine Total Protein Crossmatch 03/17/20 03/18/20 03/18/20 Unknown 04:40 04:40 WBC 32.0 H RBC 2.56 L Hgb 7.9 L Hct 24.7 L MCV 96 H MCHC RDW 18.2 H Plt Count Lymph % (Auto) Lymph # (Auto) [place] # (Auto) Baso # (Auto) Seg Neutrophils % Seg Neuts % (Manual) Lymphocytes % (Manual) Nucleated RBC % Seg Neutrophils # Seg Neutrophils # Man Lymphocytes # (Manual) Monocytes # (Manual) PT INR APTT ABG pH POC ABG pO2 ABG pO2 ABG HCO3 ABG O2 Saturation ABG Base Excess ABG Hemoglobin ABG Potassium ABG Chloride ABG Glucose Oxyhemoglobin Sodium Potassium 2.7 L* Chloride 111.8 H Carbon Dioxide 12 L BUN 56 H Creatinine 4.6 H Glucose 347 H POC Glucose Calcium 6.7 L Phosphorus 5.40 H Magnesium Alkaline Phosphatase Lactate Dehydrogenase Total Creatine Kinase Troponin T C-Reactive Protein Total Protein Albumin LDL Cholesterol Direct HDL Cholesterol Arterial Blood Glucose Arterial Blood Ionized Calcium Urine WBC (Auto) Urine Creatinine 139.3 H Ur Creatinine 24 Hour Urine Total Protein 328 H Crossmatch 03/18/20 03/18/20 03/18/20 04:40 04:48 12:14 WBC RBC Hgb Hct MCV MCHC RDW Plt Count Lymph % (Auto) Lymph # (Auto) [place] # (Auto) Baso # (Auto) Seg Neutrophils % Seg Neuts % (Manual) Lymphocytes % (Manual) Nucleated RBC % Seg Neutrophils # Seg Neutrophils # Man Lymphocytes # (Manual) Monocytes # (Manual) PT INR APTT ABG pH 7.230 L 7.196 L POC ABG pO2 67.4 L ABG pO2 91.6 H ABG HCO3 13.7 L ABG O2 Saturation ABG Base Excess -12.8 L ABG Hemoglobin 9.2 L 9.9 L ABG Potassium 3.3 L ABG Chloride 112.0 H ABG Glucose 355 H Oxyhemoglobin 94.8 L Sodium Potassium Chloride Carbon Dioxide BUN Creatinine Glucose POC Glucose Calcium Phosphorus Magnesium 1.40 L Alkaline Phosphatase Lactate Dehydrogenase Total Creatine Kinase Troponin T C-Reactive Protein Total Protein Albumin LDL Cholesterol Direct HDL Cholesterol Arterial Blood Glucose 355 H Arterial Blood Ionized Calcium 4.5 L Urine WBC (Auto) Urine Creatinine Ur Creatinine 24 Hour Urine Total Protein Crossmatch 03/18/20 03/18/20 03/18/20 13:17 13:32 19:15 WBC RBC Hgb Hct MCV MCHC RDW Plt Count Lymph % (Auto) Lymph # (Auto) [place] # (Auto) Baso # (Auto) Seg Neutrophils % Seg Neuts % (Manual) Lymphocytes % (Manual) Nucleated RBC % Seg Neutrophils # Seg Neutrophils # Man Lymphocytes # (Manual) Monocytes # (Manual) PT INR APTT ABG pH POC ABG pO2 ABG pO2 ABG HCO3 ABG O2 Saturation ABG Base Excess ABG Hemoglobin ABG Potassium ABG Chloride ABG Glucose Oxyhemoglobin Sodium Potassium 3.0 L 3.4 L Chloride 107.2 H Carbon Dioxide 14 L 13 L BUN 59 H 67 H Creatinine 4.8 H 5.1 H Glucose 341 H 371 H POC Glucose 394 H Calcium 7.0 L 7.8 L Phosphorus Magnesium Alkaline Phosphatase Lactate Dehydrogenase Total Creatine Kinase Troponin T C-Reactive Protein Total Protein Albumin LDL Cholesterol Direct HDL Cholesterol Arterial Blood Glucose Arterial Blood Ionized Calcium Urine WBC (Auto) Urine Creatinine Ur Creatinine 24 Hour Urine Total Protein Crossmatch 03/18/20 03/18/20 03/19/20 19:21 23:00 01:32 EST WBC RBC Hgb Hct MCV MCHC RDW Plt Count Lymph % (Auto) Lymph # (Auto) [place] # (Auto) Baso # (Auto) Seg Neutrophils % Seg Neuts % (Manual) Lymphocytes % (Manual) Nucleated RBC % Seg Neutrophils # Seg Neutrophils # Man Lymphocytes # (Manual) Monocytes # (Manual) PT INR APTT ABG pH POC ABG pO2 ABG pO2 ABG HCO3 ABG O2 Saturation ABG Base Excess ABG Hemoglobin ABG Potassium ABG Chloride ABG Glucose Oxyhemoglobin Sodium Potassium Chloride Carbon Dioxide BUN Creatinine Glucose POC Glucose 453 H 360 H 338 H Calcium Phosphorus Magnesium Alkaline Phosphatase Lactate Dehydrogenase Total Creatine Kinase Troponin T C-Reactive Protein Total Protein Albumin LDL Cholesterol Direct HDL Cholesterol Arterial Blood Glucose Arterial Blood Ionized Calcium Urine WBC (Auto) Urine Creatinine Ur Creatinine 24 Hour Urine Total Protein Crossmatch 03/19/20 03/19/20 03/19/20 04:10 05:10 05:10 WBC 25.8 H RBC 3.61 L Hgb 10.9 L D Hct MCV 100 H MCHC 30 L RDW 19.1 H Plt Count Lymph % (Auto) Lymph # (Auto) [place] # (Auto) Baso # (Auto) Seg Neutrophils % Seg Neuts % (Manual) Lymphocytes % (Manual) Nucleated RBC % Seg Neutrophils # Seg Neutrophils # Man Lymphocytes # (Manual) Monocytes # (Manual) PT INR APTT ABG pH 7.309 L POC ABG pO2 ABG pO2 69.4 L ABG HCO3 17.9 L ABG O2 Saturation 92.4 L ABG Base Excess -7.6 L ABG Hemoglobin 8.1 L ABG Potassium ABG Chloride ABG Glucose Oxyhemoglobin 90.8 L Sodium Potassium Chloride Carbon Dioxide BUN Creatinine Glucose POC Glucose Calcium Phosphorus 5.60 H Magnesium Alkaline Phosphatase Lactate Dehydrogenase Total Creatine Kinase Troponin T C-Reactive Protein Total Protein Albumin LDL Cholesterol Direct HDL Cholesterol Arterial Blood Glucose Arterial Blood Ionized Calcium Urine WBC (Auto) Urine Creatinine Ur Creatinine 24 Hour Urine Total Protein Crossmatch 03/19/20 03/19/20 03/19/20 10:00 11:22 Unknown WBC RBC Hgb Hct MCV MCHC RDW Plt Count Lymph % (Auto) Lymph # (Auto) [place] # (Auto) Baso # (Auto) Seg Neutrophils % Seg Neuts % (Manual) Lymphocytes % (Manual) Nucleated RBC % Seg Neutrophils # Seg Neutrophils # Man Lymphocytes # (Manual) Monocytes # (Manual) PT 15.3 H INR 1.18 H APTT ABG pH POC ABG pO2 ABG pO2 ABG HCO3 ABG O2 Saturation ABG Base Excess ABG Hemoglobin ABG Potassium ABG Chloride ABG Glucose Oxyhemoglobin Sodium Potassium 3.0 L Chloride Carbon Dioxide BUN 69 H Creatinine 5.4 H Glucose 250 H POC Glucose 274 H Calcium 7.9 L Phosphorus Magnesium Alkaline Phosphatase Lactate Dehydrogenase Total Creatine Kinase Troponin T C-Reactive Protein Total Protein Albumin LDL Cholesterol Direct HDL Cholesterol Arterial Blood Glucose Arterial Blood Ionized Calcium Urine WBC (Auto) Urine Creatinine Ur Creatinine 24 Hour Urine Total Protein Crossmatch 03/20/20 03/20/20 03/20/20 01:56 05:22 06:35 WBC 27.5 H RBC 2.57 L Hgb 7.9 L D Hct 23.3 L D MCV MCHC RDW 17.7 H Plt Count Lymph % (Auto) Lymph # (Auto) [place] # (Auto) Baso # (Auto) Seg Neutrophils % Seg Neuts % (Manual) Lymphocytes % (Manual) Nucleated RBC % Seg Neutrophils # Seg Neutrophils # Man Lymphocytes # (Manual) Monocytes # (Manual) PT INR APTT ABG pH POC ABG pO2 ABG pO2 ABG HCO3 ABG O2 Saturation ABG Base Excess ABG Hemoglobin ABG Potassium ABG Chloride ABG Glucose Oxyhemoglobin Sodium Potassium Chloride Carbon Dioxide BUN Creatinine Glucose POC Glucose 145 H 181 H Calcium Phosphorus Magnesium Alkaline Phosphatase Lactate Dehydrogenase Total Creatine Kinase Troponin T C-Reactive Protein Total Protein Albumin LDL Cholesterol Direct HDL Cholesterol Arterial Blood Glucose Arterial Blood Ionized Calcium Urine WBC (Auto) Urine Creatinine Ur Creatinine 24 Hour Urine Total Protein Crossmatch 03/20/20 03/20/20 03/20/20 06:35 12:10 13:30 WBC RBC Hgb Hct MCV MCHC RDW Plt Count Lymph % (Auto) Lymph # (Auto) [place] # (Auto) Baso # (Auto) Seg Neutrophils % Seg Neuts % (Manual) Lymphocytes % (Manual) Nucleated RBC % Seg Neutrophils # Seg Neutrophils # Man Lymphocytes # (Manual) Monocytes # (Manual) PT INR APTT ABG pH POC ABG pO2 ABG pO2 ABG HCO3 ABG O2 Saturation ABG Base Excess ABG Hemoglobin ABG Potassium ABG Chloride ABG Glucose Oxyhemoglobin Sodium Potassium 2.9 L* Chloride Carbon Dioxide BUN 69 H Creatinine 5.1 H Glucose 146 H POC Glucose 164 H Calcium 8.2 L Phosphorus 5.40 H Magnesium Alkaline Phosphatase Lactate Dehydrogenase Total Creatine Kinase Troponin T C-Reactive Protein Total Protein Albumin LDL Cholesterol Direct HDL Cholesterol Arterial Blood Glucose Arterial Blood Ionized Calcium Urine WBC (Auto) 153.0 H Urine Creatinine Ur Creatinine 24 Hour Urine Total Protein Crossmatch 03/20/20 03/20/20 03/20/20 16:00 16:35 17:23 WBC RBC Hgb Hct MCV MCHC RDW Plt Count Lymph % (Auto) Lymph # (Auto) [place] # (Auto) Baso # (Auto) Seg Neutrophils % Seg Neuts % (Manual) Lymphocytes % (Manual) Nucleated RBC % Seg Neutrophils # Seg Neutrophils # Man Lymphocytes # (Manual) Monocytes # (Manual) PT INR APTT ABG pH POC ABG pO2 ABG pO2 63.9 L ABG HCO3 ABG O2 Saturation 90.9 L ABG Base Excess -2.6 L ABG Hemoglobin 9.5 L ABG Potassium ABG Chloride ABG Glucose Oxyhemoglobin 89.3 L Sodium 146 H Potassium 3.3 L Chloride Carbon Dioxide BUN 72 H Creatinine 5.1 H Glucose 150 H POC Glucose 191 H Calcium 8.2 L Phosphorus Magnesium Alkaline Phosphatase Lactate Dehydrogenase Total Creatine Kinase Troponin T C-Reactive Protein Total Protein Albumin LDL Cholesterol Direct HDL Cholesterol Arterial Blood Glucose Arterial Blood Ionized Calcium Urine WBC (Auto) Urine Creatinine Ur Creatinine 24 Hour Urine Total Protein Crossmatch 03/21/20 03/21/20 03/21/20 00:48 03:55 03:55 WBC 22.4 H RBC 2.06 L Hgb 6.3 L Hct 19.2 L* MCV MCHC RDW 17.7 H Plt Count 86 L Lymph % (Auto) Lymph # (Auto) [place] # (Auto) Baso # (Auto) Seg Neutrophils % Seg Neuts % (Manual) Lymphocytes % (Manual) Nucleated RBC % Seg Neutrophils # Seg Neutrophils # Man Lymphocytes # (Manual) Monocytes # (Manual) PT INR APTT ABG pH POC ABG pO2 ABG pO2 ABG HCO3 ABG O2 Saturation ABG Base Excess ABG Hemoglobin ABG Potassium ABG Chloride ABG Glucose Oxyhemoglobin Sodium 148 H Potassium 2.8 L* Chloride 108.2 H Carbon Dioxide BUN 52 H Creatinine 3.8 H Glucose 130 H POC Glucose 158 H Calcium 7.6 L Phosphorus Magnesium Alkaline Phosphatase Lactate Dehydrogenase Total Creatine Kinase Troponin T C-Reactive Protein Total Protein Albumin LDL Cholesterol Direct HDL Cholesterol Arterial Blood Glucose Arterial Blood Ionized Calcium Urine WBC (Auto) Urine Creatinine Ur Creatinine 24 Hour Urine Total Protein Crossmatch 03/21/20 03/21/20 03/21/20 05:37 06:43 09:15 WBC RBC Hgb Hct MCV MCHC RDW Plt Count Lymph % (Auto) Lymph # (Auto) [place] # (Auto) Baso # (Auto) Seg Neutrophils % Seg Neuts % (Manual) Lymphocytes % (Manual) Nucleated RBC % Seg Neutrophils # Seg Neutrophils # Man Lymphocytes # (Manual) Monocytes # (Manual) PT INR APTT ABG pH POC ABG pO2 ABG pO2 ABG HCO3 ABG O2 Saturation ABG Base Excess ABG Hemoglobin ABG Potassium ABG Chloride ABG Glucose Oxyhemoglobin Sodium Potassium 3.5 L D Chloride Carbon Dioxide BUN 56 H Creatinine 4.3 H Glucose 104 H POC Glucose 159 H Calcium Phosphorus Magnesium Alkaline Phosphatase Lactate Dehydrogenase Total Creatine Kinase Troponin T C-Reactive Protein Total Protein Albumin LDL Cholesterol Direct HDL Cholesterol Arterial Blood Glucose Arterial Blood Ionized Calcium Urine WBC (Auto) Urine Creatinine Ur Creatinine 24 Hour Urine Total Protein Crossmatch See Detail 03/21/20 03/21/20 03/22/20 12:55 17:26 00:16 WBC RBC Hgb Hct MCV MCHC RDW Plt Count Lymph % (Auto) Lymph # (Auto) [place] # (Auto) Baso # (Auto) Seg Neutrophils % Seg Neuts % (Manual) Lymphocytes % (Manual) Nucleated RBC % Seg Neutrophils # Seg Neutrophils # Man Lymphocytes # (Manual) Monocytes # (Manual) PT INR APTT ABG pH POC ABG pO2 ABG pO2 ABG HCO3 ABG O2 Saturation ABG Base Excess ABG Hemoglobin ABG Potassium ABG Chloride ABG Glucose Oxyhemoglobin Sodium Potassium Chloride Carbon Dioxide BUN Creatinine Glucose POC Glucose 157 H 128 H 148 H Calcium Phosphorus Magnesium Alkaline Phosphatase Lactate Dehydrogenase Total Creatine Kinase Troponin T C-Reactive Protein Total Protein Albumin LDL Cholesterol Direct HDL Cholesterol Arterial Blood Glucose Arterial Blood Ionized Calcium Urine WBC (Auto) Urine Creatinine Ur Creatinine 24 Hour Urine Total Protein Crossmatch 03/22/20 03/22/20 03/22/20 04:00 04:43 05:00 WBC 26.2 H RBC 3.16 L Hgb 9.6 L D Hct 29.1 L D MCV MCHC RDW 18.2 H Plt Count 86 L Lymph % (Auto) Lymph # (Auto) [place] # (Auto) Baso # (Auto) Seg Neutrophils % Seg Neuts % (Manual) Lymphocytes % (Manual) Nucleated RBC % Seg Neutrophils # Seg Neutrophils # Man Lymphocytes # (Manual) Monocytes # (Manual) PT INR APTT ABG pH POC ABG pO2 ABG pO2 ABG HCO3 ABG O2 Saturation ABG Base Excess ABG Hemoglobin ABG Potassium ABG Chloride ABG Glucose Oxyhemoglobin Sodium Potassium 3.5 L Chloride Carbon Dioxide BUN 47 H Creatinine 3.3 H Glucose 171 H POC Glucose Calcium 8.3 L Phosphorus Magnesium 1.60 L Alkaline Phosphatase Lactate Dehydrogenase Total Creatine Kinase Troponin T C-Reactive Protein Total Protein Albumin LDL Cholesterol Direct HDL Cholesterol Arterial Blood Glucose Arterial Blood Ionized Calcium Urine WBC (Auto) Urine Creatinine Ur Creatinine 24 Hour Urine Total Protein Crossmatch 03/22/20 03/22/20 03/22/20 05:41 12:18 17:29 WBC RBC Hgb Hct MCV MCHC RDW Plt Count Lymph % (Auto) Lymph # (Auto) [place] # (Auto) Baso # (Auto) Seg Neutrophils % Seg Neuts % (Manual) Lymphocytes % (Manual) Nucleated RBC % Seg Neutrophils # Seg Neutrophils # Man Lymphocytes # (Manual) Monocytes # (Manual) PT INR APTT ABG pH POC ABG pO2 ABG pO2 ABG HCO3 ABG O2 Saturation ABG Base Excess ABG Hemoglobin ABG Potassium ABG Chloride ABG Glucose Oxyhemoglobin Sodium Potassium Chloride Carbon Dioxide BUN Creatinine Glucose POC Glucose 183 H 129 H 184 H Calcium Phosphorus Magnesium Alkaline Phosphatase Lactate Dehydrogenase Total Creatine Kinase Troponin T C-Reactive Protein Total Protein Albumin LDL Cholesterol Direct HDL Cholesterol Arterial Blood Glucose Arterial Blood Ionized Calcium Urine WBC (Auto) Urine Creatinine Ur Creatinine 24 Hour Urine Total Protein Crossmatch 03/22/20 03/23/20 03/23/20 19:13 00:22 06:09 WBC RBC Hgb Hct MCV MCHC RDW Plt Count Lymph % (Auto) Lymph # (Auto) [place] # (Auto) Baso # (Auto) Seg Neutrophils % Seg Neuts % (Manual) Lymphocytes % (Manual) Nucleated RBC % Seg Neutrophils # Seg Neutrophils # Man Lymphocytes # (Manual) Monocytes # (Manual) PT INR APTT 91.0 H* ABG pH POC ABG pO2 ABG pO2 ABG HCO3 ABG O2 Saturation ABG Base Excess ABG Hemoglobin ABG Potassium ABG Chloride ABG Glucose Oxyhemoglobin Sodium Potassium Chloride Carbon Dioxide BUN Creatinine Glucose POC Glucose 159 H 166 H Calcium Phosphorus Magnesium Alkaline Phosphatase Lactate Dehydrogenase Total Creatine Kinase Troponin T C-Reactive Protein Total Protein Albumin LDL Cholesterol Direct HDL Cholesterol Arterial Blood Glucose Arterial Blood Ionized Calcium Urine WBC (Auto) Urine Creatinine Ur Creatinine 24 Hour Urine Total Protein Crossmatch 03/23/20 03/23/20 03/23/20 09:35 09:35 09:35 WBC 26.9 H RBC 3.60 L Hgb 10.7 L Hct 32.7 L MCV MCHC RDW 18.9 H Plt Count 98 L Lymph % (Auto) Lymph # (Auto) [place] # (Auto) Baso # (Auto) Seg Neutrophils % Seg Neuts % (Manual) 94.0 H Lymphocytes % (Manual) 2.0 L Nucleated RBC % 1.0 H Seg Neutrophils # Seg Neutrophils # Man 25.3 H Lymphocytes # (Manual) 0.5 L Monocytes # (Manual) PT INR APTT ABG pH POC ABG pO2 ABG pO2 ABG HCO3 ABG O2 Saturation ABG Base Excess ABG Hemoglobin ABG Potassium ABG Chloride ABG Glucose Oxyhemoglobin Sodium Potassium 3.5 L Chloride Carbon Dioxide BUN 61 H Creatinine 3.7 H Glucose 148 H POC Glucose Calcium Phosphorus 4.90 H D Magnesium Alkaline Phosphatase Lactate Dehydrogenase Total Creatine Kinase Troponin T C-Reactive Protein Total Protein Albumin LDL Cholesterol Direct HDL Cholesterol Arterial Blood Glucose Arterial Blood Ionized Calcium Urine WBC (Auto) Urine Creatinine Ur Creatinine 24 Hour Urine Total Protein Crossmatch 03/23/20 03/23/20 03/23/20 09:35 11:56 17:07 WBC RBC Hgb Hct MCV MCHC RDW Plt Count Lymph % (Auto) Lymph # (Auto) [place] # (Auto) Baso # (Auto) Seg Neutrophils % Seg Neuts % (Manual) Lymphocytes % (Manual) Nucleated RBC % Seg Neutrophils # Seg Neutrophils # Man Lymphocytes # (Manual) Monocytes # (Manual) PT INR APTT 115.2 H* 74.5 H* ABG pH POC ABG pO2 ABG pO2 ABG HCO3 ABG O2 Saturation ABG Base Excess ABG Hemoglobin ABG Potassium ABG Chloride ABG Glucose Oxyhemoglobin Sodium Potassium Chloride Carbon Dioxide BUN Creatinine Glucose POC Glucose 159 H Calcium Phosphorus Magnesium Alkaline Phosphatase Lactate Dehydrogenase Total Creatine Kinase Troponin T C-Reactive Protein Total Protein Albumin LDL Cholesterol Direct HDL Cholesterol Arterial Blood Glucose Arterial Blood Ionized Calcium Urine WBC (Auto) Urine Creatinine Ur Creatinine 24 Hour Urine Total Protein Crossmatch 03/23/20 03/23/20 03/23/20 17:34 21:45 22:24 WBC RBC Hgb Hct MCV MCHC RDW Plt Count Lymph % (Auto) Lymph # (Auto) [place] # (Auto) Baso # (Auto) Seg Neutrophils % Seg Neuts % (Manual) Lymphocytes % (Manual) Nucleated RBC % Seg Neutrophils # Seg Neutrophils # Man Lymphocytes # (Manual) Monocytes # (Manual) PT INR APTT 112.5 H* ABG pH POC ABG pO2 ABG pO2 ABG HCO3 ABG O2 Saturation ABG Base Excess ABG Hemoglobin ABG Potassium ABG Chloride ABG Glucose Oxyhemoglobin Sodium Potassium Chloride Carbon Dioxide BUN Creatinine Glucose POC Glucose 217 H 160 H Calcium Phosphorus Magnesium Alkaline Phosphatase Lactate Dehydrogenase Total Creatine Kinase Troponin T C-Reactive Protein Total Protein Albumin LDL Cholesterol Direct HDL Cholesterol Arterial Blood Glucose Arterial Blood Ionized Calcium Urine WBC (Auto) Urine Creatinine Ur Creatinine 24 Hour Urine Total Protein Crossmatch 03/24/20 03/24/20 03/24/20 01:13 05:19 05:19 WBC 28.6 H RBC 3.57 L Hgb 10.7 L Hct 33.3 L MCV MCHC RDW 18.4 H Plt Count 94 L Lymph % (Auto) 4.0 L Lymph # (Auto) 1.1 L [place] # (Auto) 0.9 H Baso # (Auto) Seg Neutrophils % Seg Neuts % (Manual) Lymphocytes % (Manual) Nucleated RBC % Seg Neutrophils # 26.4 H Seg Neutrophils # Man Lymphocytes # (Manual) Monocytes # (Manual) PT INR APTT ABG pH POC ABG pO2 ABG pO2 ABG HCO3 ABG O2 Saturation ABG Base Excess ABG Hemoglobin ABG Potassium ABG Chloride ABG Glucose Oxyhemoglobin Sodium 146 H Potassium 3.5 L Chloride Carbon Dioxide BUN 71 H Creatinine 3.9 H Glucose 141 H POC Glucose 186 H Calcium 8.3 L Phosphorus 5.80 H Magnesium Alkaline Phosphatase Lactate Dehydrogenase Total Creatine Kinase Troponin T C-Reactive Protein Total Protein Albumin LDL Cholesterol Direct HDL Cholesterol Arterial Blood Glucose Arterial Blood Ionized Calcium Urine WBC (Auto) Urine Creatinine Ur Creatinine 24 Hour Urine Total Protein Crossmatch 03/24/20 03/24/20 03/24/20 05:19 06:35 12:24 WBC RBC Hgb Hct MCV MCHC RDW Plt Count Lymph % (Auto) Lymph # (Auto) [place] # (Auto) Baso # (Auto) Seg Neutrophils % Seg Neuts % (Manual) Lymphocytes % (Manual) Nucleated RBC % Seg Neutrophils # Seg Neutrophils # Man Lymphocytes # (Manual) Monocytes # (Manual) PT INR APTT 91.5 H* ABG pH POC ABG pO2 ABG pO2 ABG HCO3 ABG O2 Saturation ABG Base Excess ABG Hemoglobin ABG Potassium ABG Chloride ABG Glucose Oxyhemoglobin Sodium Potassium Chloride Carbon Dioxide BUN Creatinine Glucose POC Glucose 153 H 162 H Calcium Phosphorus Magnesium Alkaline Phosphatase Lactate Dehydrogenase Total Creatine Kinase Troponin T C-Reactive Protein Total Protein Albumin LDL Cholesterol Direct HDL Cholesterol Arterial Blood Glucose Arterial Blood Ionized Calcium Urine WBC (Auto) Urine Creatinine Ur Creatinine 24 Hour Urine Total Protein Crossmatch 03/24/20 03/24/20 03/25/20 19:50 23:56 05:11 WBC RBC Hgb Hct MCV MCHC RDW Plt Count Lymph % (Auto) Lymph # (Auto) [place] # (Auto) Baso # (Auto) Seg Neutrophils % Seg Neuts % (Manual) Lymphocytes % (Manual) Nucleated RBC % Seg Neutrophils # Seg Neutrophils # Man Lymphocytes # (Manual) Monocytes # (Manual) PT INR APTT 75.3 H* ABG pH POC ABG pO2 ABG pO2 ABG HCO3 ABG O2 Saturation ABG Base Excess ABG Hemoglobin ABG Potassium ABG Chloride ABG Glucose Oxyhemoglobin Sodium Potassium Chloride Carbon Dioxide BUN Creatinine Glucose POC Glucose 193 H 139 H Calcium Phosphorus Magnesium Alkaline Phosphatase Lactate Dehydrogenase Total Creatine Kinase Troponin T C-Reactive Protein Total Protein Albumin LDL Cholesterol Direct HDL Cholesterol Arterial Blood Glucose Arterial Blood Ionized Calcium Urine WBC (Auto) Urine Creatinine Ur Creatinine 24 Hour Urine Total Protein Crossmatch 03/25/20 03/25/20 03/25/20 06:25 15:39 15:55 WBC RBC Hgb Hct MCV MCHC RDW Plt Count Lymph % (Auto) Lymph # (Auto) [place] # (Auto) Baso # (Auto) Seg Neutrophils % Seg Neuts % (Manual) Lymphocytes % (Manual) Nucleated RBC % Seg Neutrophils # Seg Neutrophils # Man Lymphocytes # (Manual) Monocytes # (Manual) PT INR APTT 79.3 H* ABG pH POC ABG pO2 ABG pO2 ABG HCO3 ABG O2 Saturation ABG Base Excess ABG Hemoglobin ABG Potassium ABG Chloride ABG Glucose Oxyhemoglobin Sodium Potassium Chloride Carbon Dioxide BUN 54 H Creatinine 3.1 H Glucose 112 H POC Glucose 111 H Calcium 8.3 L Phosphorus 4.90 H Magnesium Alkaline Phosphatase Lactate Dehydrogenase Total Creatine Kinase Troponin T C-Reactive Protein Total Protein Albumin LDL Cholesterol Direct HDL Cholesterol Arterial Blood Glucose Arterial Blood Ionized Calcium Urine WBC (Auto) Urine Creatinine Ur Creatinine 24 Hour Urine Total Protein Crossmatch 03/25/20 03/26/20 03/26/20 23:40 00:32 06:31 WBC RBC Hgb Hct MCV MCHC RDW Plt Count Lymph % (Auto) Lymph # (Auto) [place] # (Auto) Baso # (Auto) Seg Neutrophils % Seg Neuts % (Manual) Lymphocytes % (Manual) Nucleated RBC % Seg Neutrophils # Seg Neutrophils # Man Lymphocytes # (Manual) Monocytes # (Manual) PT INR APTT 83.1 H* ABG pH POC ABG pO2 ABG pO2 ABG HCO3 ABG O2 Saturation ABG Base Excess ABG Hemoglobin ABG Potassium ABG Chloride ABG Glucose Oxyhemoglobin Sodium Potassium 3.2 L Chloride Carbon Dioxide BUN 63 H Creatinine 3.6 H Glucose POC Glucose 115 H Calcium 8.1 L Phosphorus 5.60 H Magnesium Alkaline Phosphatase Lactate Dehydrogenase Total Creatine Kinase Troponin T C-Reactive Protein Total Protein Albumin LDL Cholesterol Direct HDL Cholesterol Arterial Blood Glucose Arterial Blood Ionized Calcium Urine WBC (Auto) Urine Creatinine Ur Creatinine 24 Hour Urine Total Protein Crossmatch 03/26/20 03/26/20 03/26/20 13:23 13:33 14:18 WBC RBC Hgb Hct MCV MCHC RDW Plt Count Lymph % (Auto) Lymph # (Auto) [place] # (Auto) Baso # (Auto) Seg Neutrophils % Seg Neuts % (Manual) Lymphocytes % (Manual) Nucleated RBC % Seg Neutrophils # Seg Neutrophils # Man Lymphocytes # (Manual) Monocytes # (Manual) PT INR APTT 75.5 H* ABG pH POC ABG pO2 ABG pO2 ABG HCO3 ABG O2 Saturation ABG Base Excess ABG Hemoglobin ABG Potassium ABG Chloride ABG Glucose Oxyhemoglobin Sodium Potassium Chloride Carbon Dioxide BUN Creatinine Glucose POC Glucose 107 H Calcium Phosphorus Magnesium Alkaline Phosphatase Lactate Dehydrogenase Total Creatine Kinase Troponin T C-Reactive Protein Total Protein Albumin LDL Cholesterol Direct HDL Cholesterol Arterial Blood Glucose Arterial Blood Ionized Calcium Urine WBC (Auto) Urine Creatinine 63.7 H Ur Creatinine 24 Hour 0.4 L Urine Total Protein Crossmatch 03/27/20 03/27/20 03/27/20 05:26 11:22 12:08 WBC RBC Hgb Hct MCV MCHC RDW Plt Count Lymph % (Auto) Lymph # (Auto) [place] # (Auto) Baso # (Auto) Seg Neutrophils % Seg Neuts % (Manual) Lymphocytes % (Manual) Nucleated RBC % Seg Neutrophils # Seg Neutrophils # Man Lymphocytes # (Manual) Monocytes # (Manual) PT INR APTT ABG pH POC ABG pO2 ABG pO2 ABG HCO3 ABG O2 Saturation ABG Base Excess ABG Hemoglobin ABG Potassium ABG Chloride ABG Glucose Oxyhemoglobin Sodium Potassium Chloride Carbon Dioxide BUN 70 H Creatinine 3.9 H Glucose 67 L POC Glucose 44 L Calcium 8.3 L Phosphorus 6.40 H Magnesium Alkaline Phosphatase Lactate Dehydrogenase 255 H Total Creatine Kinase Troponin T C-Reactive Protein Total Protein Albumin LDL Cholesterol Direct HDL Cholesterol Arterial Blood Glucose Arterial Blood Ionized Calcium Urine WBC (Auto) Urine Creatinine Ur Creatinine 24 Hour Urine Total Protein Crossmatch 03/27/20 03/27/20 03/27/20 12:29 14:31 16:00 WBC RBC Hgb Hct MCV MCHC RDW Plt Count Lymph % (Auto) Lymph # (Auto) [place] # (Auto) Baso # (Auto) Seg Neutrophils % Seg Neuts % (Manual) Lymphocytes % (Manual) Nucleated RBC % Seg Neutrophils # Seg Neutrophils # Man Lymphocytes # (Manual) Monocytes # (Manual) PT INR APTT 74.1 H* ABG pH POC ABG pO2 ABG pO2 ABG HCO3 ABG O2 Saturation ABG Base Excess ABG Hemoglobin ABG Potassium ABG Chloride ABG Glucose Oxyhemoglobin Sodium Potassium Chloride Carbon Dioxide BUN Creatinine Glucose POC Glucose 53 L 132 H Calcium Phosphorus Magnesium Alkaline Phosphatase Lactate Dehydrogenase Total Creatine Kinase Troponin T C-Reactive Protein Total Protein Albumin LDL Cholesterol Direct HDL Cholesterol Arterial Blood Glucose Arterial Blood Ionized Calcium Urine WBC (Auto) Urine Creatinine Ur Creatinine 24 Hour Urine Total Protein Crossmatch 03/27/20 03/27/20 03/27/20 16:00 16:00 17:07 WBC 14.8 H RBC 3.30 L Hgb 10.2 L Hct 30.8 L MCV MCHC RDW 17.6 H Plt Count 101 L Lymph % (Auto) Lymph # (Auto) [place] # (Auto) Baso # (Auto) Seg Neutrophils % Seg Neuts % (Manual) 93.0 H Lymphocytes % (Manual) 4.0 L Nucleated RBC % Seg Neutrophils # Seg Neutrophils # Man 13.8 H Lymphocytes # (Manual) 0.6 L Monocytes # (Manual) PT INR APTT ABG pH POC ABG pO2 ABG pO2 ABG HCO3 ABG O2 Saturation ABG Base Excess ABG Hemoglobin ABG Potassium ABG Chloride ABG Glucose Oxyhemoglobin Sodium Potassium Chloride Carbon Dioxide BUN Creatinine Glucose POC Glucose 154 H Calcium Phosphorus Magnesium Alkaline Phosphatase Lactate Dehydrogenase Total Creatine Kinase Troponin T C-Reactive Protein 3.20 H Total Protein Albumin LDL Cholesterol Direct HDL Cholesterol Arterial Blood Glucose Arterial Blood Ionized Calcium Urine WBC (Auto) Urine Creatinine Ur Creatinine 24 Hour Urine Total Protein Crossmatch 03/27/20 03/28/20 03/28/20 21:38 00:52 05:49 WBC 17.1 H RBC 3.05 L Hgb 9.4 L Hct 28.2 L MCV MCHC RDW 17.0 H Plt Count 98 L Lymph % (Auto) 4.3 L Lymph # (Auto) 0.7 L [place] # (Auto) Baso # (Auto) 0.2 H Seg Neutrophils % 89.8 H Seg Neuts % (Manual) Lymphocytes % (Manual) Nucleated RBC % Seg Neutrophils # 15.4 H Seg Neutrophils # Man Lymphocytes # (Manual) Monocytes # (Manual) PT INR APTT ABG pH POC ABG pO2 ABG pO2 ABG HCO3 ABG O2 Saturation ABG Base Excess ABG Hemoglobin ABG Potassium ABG Chloride ABG Glucose Oxyhemoglobin Sodium Potassium 3.3 L Chloride Carbon Dioxide BUN 52 H Creatinine 3.3 H Glucose POC Glucose 191 H Calcium 8.1 L Phosphorus 6.10 H Magnesium Alkaline Phosphatase Lactate Dehydrogenase Total Creatine Kinase Troponin T C-Reactive Protein Total Protein Albumin LDL Cholesterol Direct HDL Cholesterol Arterial Blood Glucose Arterial Blood Ionized Calcium Urine WBC (Auto) Urine Creatinine Ur Creatinine 24 Hour Urine Total Protein Crossmatch 03/28/20 05:49 WBC RBC Hgb Hct MCV MCHC RDW Plt Count Lymph % (Auto) Lymph # (Auto) [place] # (Auto) Baso # (Auto) Seg Neutrophils % Seg Neuts % (Manual) Lymphocytes % (Manual) Nucleated RBC % Seg Neutrophils # Seg Neutrophils # Man Lymphocytes # (Manual) Monocytes # (Manual) PT INR APTT 69.2 H* ABG pH POC ABG pO2 ABG pO2 ABG HCO3 ABG O2 Saturation ABG Base Excess ABG Hemoglobin ABG Potassium ABG Chloride ABG Glucose Oxyhemoglobin Sodium Potassium Chloride Carbon Dioxide BUN Creatinine Glucose POC Glucose Calcium Phosphorus Magnesium Alkaline Phosphatase Lactate Dehydrogenase Total Creatine Kinase Troponin T C-Reactive Protein Total Protein Albumin LDL Cholesterol Direct HDL Cholesterol Arterial Blood Glucose Arterial Blood Ionized Calcium Urine WBC (Auto) Urine Creatinine Ur Creatinine 24 Hour Urine Total Protein Crossmatch Prior PFT's, U/S of legs: report reviewed, image reviewed Additional Studies: US chest 03/27/20 INDICATION / CLINICAL INFORMATION: Left pleural effusion.. COMPARISON: Chest radiograph from 03/20/2020 FINDINGS: Examination is limited due to body habitus and overlying bandages. There is a 6.3 x 5.4 x 2.9 cm focal area of hypoechogenicity in the left upper quadrant. IMPRESSION: 6.3 cm focal area of hypoechogenicity in the left upper quadrant. This may represent a focal area of fluid in the left upper quadrant, though the study is limited by overlying bandage material. Consider further evaluation with CT, as clinically indicated. Allied health notes reviewed: nursing
--- NOTE | 2020-03-28 09:55 | Progress Note ---
Assessment and Plan Acute renal failure likely due to ischemic ATN Metabolic encphalopathy Metabolic acidosis Sepsis due to UTI UTI S/P Hypokalemia Anemia Plan: no indication for HD today 24 hr urine creatinine clearance was less than 10 ml/min S/P right femoral IJ Vascath by Vascular Surgery and first HD 03/20 Epogen with HD for anemia Renally dose medications Strict I&O monitoring Obtain daily weights Monitor renal function closely Consulted CM for outpatient dialysis placement to [facility] ID evaluated pt, on Abx, recommended removing femoral line, vascular surgery planning on perm cath placement and removal of femoral line but so far Vascular is unable to get consent from patient's son or brother for perm-cath placement Carson Patel MD [phone] Subjective Date of service: 03/28/20 Principal diagnosis: Acute hypoxemic respiratory failure; Septic shock; Ac. encephalopathy; ALEJANDRO Interval history: had HD yesterday, no family at bedside Objective - Vital Signs Vital signs: Vital Signs - 12hr 03/28/20 03/28/20 03/28/20 00:02 04:11 04:14 Temperature 97.9 F 97.8 F Pulse Rate 78 80 Respiratory 12 16 Rate Blood Pressure 155/75 167/100 158/101 Blood Pressure [Right] O2 Sat by Pulse 98 97 Oximetry 03/28/20 07:34 Temperature 97.9 F Pulse Rate 78 Respiratory 16 Rate Blood Pressure Blood Pressure 156/98 [Right] O2 Sat by Pulse 95 Oximetry - General Appearance General appearance: well-nourished, obese EENT: ATNC, PERRL, mucous membranes dry Neck: no JVD, no carotid bruit Respiratory: Present: Decreased Breath Sounds Gastrointestinal: normoactive bowel sounds, no tenderness, no distended, obese Integumentary: no rash, warm and dry Neurologic: no focal deficit Musculoskeletal: other (trace pitting edema in BLE) Psychiatric: other (follows simple commands) - Lab 03/28/20 00:52 03/28/20 05:49 Most recent lab results ABG pH 7.378 pH Units (7.350-7.450) 03/20/20 16:35 ABG pCO2 38.6 mm Hg 03/20/20 16:35 ABG pO2 63.9 mm Hg (80.0-90.0) L 03/20/20 16:35 ABG HCO3 22.2 mmol/L (20.0-26.0) 03/20/20 16:35 ABG O2 Saturation 90.9 % (95.0-99.0) L 03/20/20 16:35 Calcium 8.1 mg/dL (8.4-10.2) L 03/28/20 05:49 Phosphorus 6.10 mg/dL (2.5-4.5) H 03/28/20 05:49 Magnesium 1.80 mg/dL (1.7-2.3) 03/24/20 05:19 Urine Creatinine 63.7 mg/dL (0.1-20.0) H 03/26/20 14:18 Urine Sodium 53 mmol/L 03/17/20 Unknown Urine Total Protein 328 mg/dL (5-11.8) H 03/17/20 Unknown Medications & Allergies - Medications Allergies/Adverse Reactions: Allergies diclofenac [Diclofenac] Allergy (Verified 10/05/18 08:11) Rash Home Medications: Home Medications Medication Instructions Recorded Confirmed Last Taken Type Acetaminophen [Acetaminophen TAB] 650 mg PO Q4H PRN #1 tablet 02/28/17 03/19/20 Unknown Rx Aspirin [Aspirin BABY CHEW TAB] 81 mg PO DAILY #1 tab.chew 02/28/17 03/19/20 Unknown Rx Ferrous Sulfate [Feosol 325 MG tab] 325 mg PO QDAY #1 tablet 02/28/17 03/19/20 Unknown Rx Gabapentin 300 mg PO Q8HR #1 capsule 02/28/17 03/19/20 Unknown Rx Ondansetron [Zofran INJ] 4 mg IV Q8H PRN #1 vial 02/28/17 03/19/20 Unknown Rx amLODIPine 10 mg PO DAILY #1 tablet 02/28/17 03/19/20 Unknown Rx Ertapenem [INVanz] 1 gm IV QDAY vial 03/10/20 03/19/20 Unknown Rx Active Medications: Generic Name Dose Route Start Last Admin Trade Name Freq PRN Reason Stop Dose Admin Acetaminophen 650 mg 03/19/20 18:21 03/19/20 18:39 Tylenol FEEDTUBE 650 mg Q6H PRN Administration Pain, Mild (1-3) Albuterol 2.5 mg 03/16/20 17:00 Proventil IH Q3HRT PRN Shortness Of Breath Lipase/Protease/Amylase 1 each 03/17/20 17:12 Pancrescooby [place] 10,500 Unit FEEDTUBE PRN PRN For Clogged Feeding Tube Dextrose 50 ml 03/27/20 12:23 D50w (25gm) Syringe IV Q30MIN PRN Hypoglycemia Protocol Epoetin Colin 10,000 unit 03/24/20 17:00 Procrit IV DAYLIN IDRIS Famotidine 20 mg 03/28/20 10:00 Pepcid PO DAILY [facility] Heparin Sodium (Porcine) 5,000 unit 03/28/20 10:00 Heparin SUB-Q Q12HR [facility] Hydromorphone HCl 0.25 mg 03/16/20 17:30 Dilaudid IV Q4H PRN Pain, Moderate (4-6) Hydrophilic Ointment 1 applic 03/21/20 07:50 03/21/20 16:38 Aquaphor TP 1 applic Q12HR PRN Administration DRY SKIN Sodium Chloride 100 mls @ 999 mls/hr 03/26/20 16:20 Nacl 0.9% IV DAYLIN PRN Hypotension Insulin Glargine 6 units 03/27/20 22:00 Lantus SUB-Q QHS [facility] Insulin Human Lispro 0 unit 03/27/20 22:00 03/27/20 21:24 Humalog SUB-Q 3 unit ACHS IDRIS Administration Protocol Methylprednisolone Sodium Succinate 20 mg 03/27/20 12:00 03/27/20 11:46 Solu-Medrol IV 03/30/20 11:59 20 mg Q24HR IDRIS Administration Midodrine 10 mg 03/20/20 12:00 03/27/20 16:27 Proamatine PO Not Given TID@0800,1200,1600 IDRIS Simple Syrup 15 ml 03/17/20 17:12 Simple Syrup FEEDTUBE PRN PRN Hypoglycemia Simple Syrup 30 ml 03/17/20 17:12 Simple Syrup FEEDTUBE PRN PRN Hypoglycemia Sodium Bicarbonate 325 mg 03/17/20 17:12 Sodium Bicarbonate FEEDTUBE PRN PRN For Clogged Feeding Tube Sodium Chloride 10 ml 03/16/20 22:00 03/27/20 21:23 Sodium Chloride Flush Syringe 10 Ml IV 10 ml BID IDRIS Administration Sodium Chloride 10 ml 03/16/20 17:00 Sodium Chloride Flush Syringe 10 Ml IV PRN PRN LINE FLUSH Vancomycin HCl 250 mg 03/20/20 12:00 11/10/20 05:47 Vancomycin Po PO 04/03/20 06:01 250 mg Q6HR IDRIS Administration
--- NOTE | 2020-03-28 09:57 | Event Note ---
Date: 03/28/[address] in touch with Dr. Haq at [phone] and obtained consent for permcath placement. NPO After MN except sips of water with meds Stop agatroban drip at midnight. Can restart, if needed, on 03/30/2020. Permcath tomorrow.
[2020-03-28] MEDS: methylPREDNISolone Sod Succinate 40 MG/1 ML INJ IV SCH (11:50)
[2020-03-28] MEDS: FAMOTIDINE 20 MG TAB PO SCH (11:51)
[2020-03-28] MEDS: HEPARIN 5,000 UNIT/1 ML VIAL SUB-Q SCH ×2 (11:51→21:25)
--- NOTE | 2020-03-28 14:24 | Progress Note ---
Assessment and Plan Cultures: Blood cultures 03/16/2020 no growth today Assessment: 79 years old male with history of hypertension, diabetes mellitus, chronic kidney disease, previous CVA, chronic leg lymphedema, half-way res ident, known to our service due to previous ESBL E. coli bacteremia from UTI on 03/02/2020, admitted on due to 24 hours history of generalized weakness and confusion associated with subjective fever: #Severe sepsis with septic shock: Shock resolved, remains with leukocytosis likely due to IV steroids. Source likely severe Cdiff #Severe C diff colitis: was on ertapenem for 2 weeks #Recent ESBL E. coli bacteremia patient was discharged on ertapenem 1 g IV daily for 14 days end date supposed to be 03/20/2020 #Acute encephalopathy: Likely secondary to sepsis/uremia #Acute on chronic kidney failure #Bilateral leg lymphedema with chronic skin changes #Exfoliative rash: ? Drug allergy, seems improving Recommendations: -Continue vancomycin 250 mg PO 4 times daily total 14 days -day 12 of 14 -Taper down IV steroids -remove femoral vas cath secondary to high risk for CLABSI Will follow. Ivette Zamudio MD Infectious Diseases [facility] ([facility]) M [phone] O [phone] Subjective Date of service: 03/28/20 Principal diagnosis: Acute hypoxemic respiratory failure; Septic shock; Ac. encephalopathy; ALEJANDRO Interval history: Patient feels okay wants to go home no fever Objective - Exam Narrative Exam: General appearance: Alert in no acute distress Eyes: anicteric sclerae, moist conjunctivae; no lid-lag; PERRLA lid edema HENT: Normocephalic, Atraumatic; normal external ears, nares open, oropharynx limited Neck: supple, tracheal midline, no JVD Lungs: Diminished breath sounds bilaterally CV: RRR no murmur Abdomen: Soft, non-tender Extremities: Extensive bilateral leg edema, chronic skin changes Skin: Extensive skin desquamation Psych: Alert Neuro: Alert Rectal tube with diarrhea Midline Femoral vas cath - Constitutional Vitals: Vital Signs Temp Pulse Resp BP Pulse Ox 98.6 F 85 20 130/72 98 03/28/20 11:53 03/28/20 11:53 03/28/20 11:53 03/28/20 11:53 03/28/20 11:53 Temperature -Last 24 Hours Temperature 98.6 F Temperature 97.9 F Temperature 97.8 F Temperature 97.9 F Temperature 98.2 F Temperature 97.7 F Temperature 97.6 F Temperature 97.4 F - Labs CBC & Chem 7: 03/28/20 00:52 03/28/20 05:49 Labs: Abnormal lab results 03/27/20 03/27/20 03/27/20 Range/Units 16:00 16:00 16:00 WBC 14.8 H (4.5-11.0) K/mm3 RBC 3.30 L (3.65-5.03) M/mm3 Hgb 10.2 L (11.8-15.2) gm/dl Hct 30.8 L (35.5-45.6) % RDW 17.6 H (13.2-15.2) % Plt Count 101 L (140-440) K/mm3 Lymph % (Auto) (13.4-35.0) % Lymph # (Auto) (1.2-5.4) K/mm3 Baso # (Auto) (0.0-0.1) K/mm3 Seg Neutrophils % (40.0-70.0) % Seg Neuts % (Manual) 93.0 H (40.0-70.0) % Lymphocytes % (Manual) 4.0 L (13.4-35.0) % Seg Neutrophils # (1.8-7.7) K/mm3 Seg Neutrophils # Man 13.8 H (1.8-7.7) K/mm3 Lymphocytes # (Manual) 0.6 L (1.2-5.4) K/mm3 APTT 74.1 H* (24.2-36.6) Sec. Potassium (3.6-5.0) mmol/L BUN (9-20) mg/dL Creatinine (0.8-1.3) mg/dL POC Glucose (70-105) mg/dL Calcium (8.4-10.2) mg/dL Phosphorus (2.5-4.5) mg/dL C-Reactive Protein 3.20 H (0.00-1.30) mg/dL 03/27/20 03/27/20 03/28/20 Range/Units 17:07 21:38 00:52 WBC 17.1 H (4.5-11.0) K/mm3 RBC 3.05 L (3.65-5.03) M/mm3 Hgb 9.4 L (11.8-15.2) gm/dl Hct 28.2 L (35.5-45.6) % RDW 17.0 H (13.2-15.2) % Plt Count 98 L (140-440) K/mm3 Lymph % (Auto) 4.3 L (13.4-35.0) % Lymph # (Auto) 0.7 L (1.2-5.4) K/mm3 Baso # (Auto) 0.2 H (0.0-0.1) K/mm3 Seg Neutrophils % 89.8 H (40.0-70.0) % Seg Neuts % (Manual) (40.0-70.0) % Lymphocytes % (Manual) (13.4-35.0) % Seg Neutrophils # 15.4 H (1.8-7.7) K/mm3 Seg Neutrophils # Man (1.8-7.7) K/mm3 Lymphocytes # (Manual) (1.2-5.4) K/mm3 APTT (24.2-36.6) Sec. Potassium (3.6-5.0) mmol/L BUN (9-20) mg/dL Creatinine (0.8-1.3) mg/dL POC Glucose 154 H 191 H (70-105) mg/dL Calcium (8.4-10.2) mg/dL Phosphorus (2.5-4.5) mg/dL C-Reactive Protein (0.00-1.30) mg/dL 03/28/20 03/28/20 Range/Units 05:49 05:49 WBC (4.5-11.0) K/mm3 RBC (3.65-5.03) M/mm3 Hgb (11.8-15.2) gm/dl Hct (35.5-45.6) % RDW (13.2-15.2) % Plt Count (140-440) K/mm3 Lymph % (Auto) (13.4-35.0) % Lymph # (Auto) (1.2-5.4) K/mm3 Baso # (Auto) (0.0-0.1) K/mm3 Seg Neutrophils % (40.0-70.0) % Seg Neuts % (Manual) (40.0-70.0) % Lymphocytes % (Manual) (13.4-35.0) % Seg Neutrophils # (1.8-7.7) K/mm3 Seg Neutrophils # Man (1.8-7.7) K/mm3 Lymphocytes # (Manual) (1.2-5.4) K/mm3 APTT 69.2 H* (24.2-36.6) Sec. Potassium 3.3 L (3.6-5.0) mmol/L BUN 52 H (9-20) mg/dL Creatinine 3.3 H (0.8-1.3) mg/dL POC Glucose (70-105) mg/dL Calcium 8.1 L (8.4-10.2) mg/dL Phosphorus 6.10 H (2.5-4.5) mg/dL C-Reactive Protein (0.00-1.30) mg/dL
[2020-03-28] MEDS ORDERED: POTASSIUM CHLORIDE ER 20 MEQ TAB PO NR (17:09)
--- NOTE | 2020-03-28 17:50 | Progress Note ---
Assessment and Plan --Septic shock Due to C. difficile infection, this has resolved --C. difficile infection Continue p.o. vancomycin 250 mg every 6 hours for 14 days ID recommendations appreciated --Anemia OF Chronic Disease Monitor hemoglobin Transfused as needed to hemoglobin 7 --Electrolyte abnormalities-hypokalemia, hypomagnesemia-replete as needed --Recent ESBL E. coli bacteremia patient was discharged on ertapenem 1 g IV daily for 14 days end date supposed to be 03/20/2020 --Acute renal failure likely due to ischemic ATN/ESRD Now on hemodialysis. Nephrology recommendations appreciated Permacath placement still pending. Vascular following --Metabolic Acidosis Resolved. Discontinue sodium bicarb and monitor --Acute hypoxic Respiratory failure. Continue oxygen supplementation --Acute toxic metabolic encephalopathy Resolved --Ruled out COVID-19 --Hypothermia Resolved --Thrombocytopenia Possibly from ongoing infection vs HIT Trend platelets HIT antibody pending Argatroban for now Nephrology oncology on board --Leukocytosis Stress induced - steroids effect vs sepsis vs leukemia? Monitor for now Hematology oncology consulted --PT/OT-back to facility --DVT prophylaxis - Argatroban for now -- Patient is full code Brief History Patient is a 79-year-old male with a past medical history of encephalopathy, hypertension, generalized weakness, diabetes type 2, chronic lipidemia, DVT, respiratory failure with hypoxia, CVA, and CKD presents from longterm with complaint of sepsis with hypotension, alteration mental status. Off note he was treated previously here for ESBL E. coli bacteremia from UTI on 03/02/2020, admitted now due to 24 hours history of generalized weakness and confusion as sociated with subjective fever. Patient is unable to provide history, currently with lethargy on 3 pressors. Of note ESBL bacteremia was treated with ertapenem 1 g IV once a day for 14 days until 03/20/2020 via PICC line. On arrival, temperature 90, HR 62, RR 16, O2 sat 97, BP 76/33. Initial WBC 32.2. Hemoglobin 8.9. Creatinine 5.9. Urinalysis with 182 WBCs and large leukocyte esterase. 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 03/17: Patient also found to have acute kidney injury with acute tubular necrosis, toxic metabolic encephalopathy, metabolic acidosis and hypothermia. The patient is critically ill with a poor prognosis, sepsis protocol was initiat ed with an ICU admission. Patient was seen by wound nurse pressors were increased with also bicarb drip started. Unfortunately bicarb drip had to be held due to PICC line compatibility. A new PICC line has been inserted this morning. Admitting physician did speak with the son and discussed prognosis. also called the son this morning who informs me that the brother who is physician is coming into town and will give us further recommendation on arrival. Patient has been started on a third pressor which is epinephrine at this time. To my examination awaiting nephrology evaluation. We will proceed with giving additional 2 L of fluids and also obtain a stat echocardiogram to see what patient's cardiac level is. Based on ejection fraction patient may benefit from dobutamine. Will place BiPAP on standby and if need be and family does not opposed to continued full code we will proceed with likely intubation so the patient can be adequately volume resuscitated. -Continue empiric antibiotic coverage. ID consultation. Critical care assistance and input noted. Fluid Resuscitation As Noted above Continue Diet. Change IV access for triple-lumen PICC line. Will follow cultures. We will also obtain wound care consultation. 03/18: Continue current management, may need dialysis but not a candidate for HD due to 3 Pressors. NO Diarrhea at this time. If not improving respiratory lopez may need Intubation. 03/19: Continue supportive care, mental status showing some improvement, still on BIPAP. BP improving will stop Epi and bring down to 2 pressors. Awaiting ECHO. IF continues to have worsening Renal function, May need transfer to CRRT if unable to perform HD. Patients son updated of current clinically status. 03/20: Right femoral catheter-vas cath Placed for HD. Hypokalemia to be corrected, will give Potassium 20meq. Continue IV abx, no growth so far noted, wean pressors as tolerated, may consider adding Midodrine. WBC trending down. Prior noted Ecoli Bactermia is not noted so far on the blood culture. Continue HD as tolerated, Sodium bicarb drip due to acidosis. 03/21. He has no complaints today. Patient continues to ask when he will be discharged. Labs showed persistent hypokalemia. Continue potassium replacement. Hemoglobin 6.0. Patient will get transfused 1 unit PRBC. 03/22. Hemoglobin stable today. Vascular surgery consulted for femoral line replacement 03/23. Patient seen in the BiPAP. Still has diarrhea and is on vancomycin. Afebrile overnight. Labs reviewed 03/24. Patient may need permacath placement on Friday. 24-hour urine collection ordered as per renal. Monitor rectal tube output closely. PT/OT 03/25. Patient seen and evaluated this morning. He has no complaints. Needs to have right femoral line removed permacath placed on Friday. Nephrology recommendations appreciated. 24-hour urine collection yet to commence as per RN. Steroids tapered off. 03/26. Patient seen and examined at bedside this morning. Has no complaints today. Plan is to have permacath placement tomorrow. He will need to have hemodialysis chair arrangement prior to discharge. supply manager on the case. Hematology consulted for thrombocytopenia and leukocytosis. Patient remains on argatroban but will be held temporarily for procedure. 03/27. 79-year-old male admitted 11 days ago with lethargy and altered mental status. Patient found to have septic shock, started on antibiotics and transferred to the ICU. While in the ICU, patient was on pressors. Patient subsequently had ALEJANDRO which failed to improve with conservative measures for now is on hemodialysis. Patient had a right femoral line placed for hemodialysis at that time. Stay in the ICU was complicated with pressure medication infection patient is currently on vancomycin plan ID is following. Currently improved while in the ICU and was referred to the medical floors. Patient passed a swallow evaluation will started on diet. Patient also have thrombocytopenia and heparin was discontinued. Fondaparinux not possible as patient has renal disease. Patient is currently argatroban. Hematology is consulted as patient has leukocytosis from admission. Need to rule out CML. Although ongoing issues at this time is active C. difficile infection for which the patient is on vancomycin and ID is following, patient is to have permacath placement for hemodialysis and will need hemodialysis chair to be arranged prior to discharge. Patient will be going to a facility when hemodialysis chair has been set up. Patient seen and examined at bedside this morning. Plan to have permacath placement, Called patient's son on the number provided but no answer so I left a voicemail. 03/28: PermCath placement scheduled for tomorrow, continue antibiotic, continue supportive care. Patient would need LTAC/SNF placement. Subjective Date of service: 03/28/20 Principal diagnosis: Acute hypoxemic respiratory failure; Septic shock; Ac. encephalopathy; ALEJANDRO Interval history: Patient seen and examined Denies any shortness of breath or chest pain Discussed with RN at the bedside Plan for PermCat tomorrow Objective - Exam Narrative Exam: GENERAL: well-developed obese -[place] male lying on bed appeared to be in no discomfort. HEENT: Normocephalic. Atraumatic. No conjunctival congestion or icterus. Samina ent has moist mucous membranes. NECK: Supple. Trachea midline. CHEST/LUNGS: Clear to auscultated bilaterally, breathing nonlabored. No wheezes crackles or rhonchi. HEART/CARDIOVASCULAR: Regular in rate and rhythm. S1 and S2 positive. ABDOMEN: Abdomen is soft, nontender. Patient has normal bowel sounds. MUSCULOSKELETAL: Chronic venous changes bilateral lower ext NEUROLOGIC EXAM: Awake and alert SKIN: Multiple exfoliative rash, multiple pressure ulcers, detail exam as documented in skin assessment Psych: Cooperative. - Constitutional Vitals: Vital Signs - 12hr 03/28/20 03/28/20 03/28/20 07:34 10:00 11:53 Temperature 97.9 F 98.6 F Pulse Rate 78 85 Respiratory 16 22 20 Rate Blood Pressure 130/72 Blood Pressure 156/98 [Right] O2 Sat by Pulse 95 97 98 Oximetry - Labs CBC & Chem 7: 03/30/20 00:47 03/31/20 05:28 Labs: Abnormal lab results 03/27/20 03/27/20 03/28/20 Range/Units 16:00 21:38 00:52 WBC 17.1 H (4.5-11.0) K/mm3 RBC 3.05 L (3.65-5.03) M/mm3 Hgb 9.4 L (11.8-15.2) gm/dl Hct 28.2 L (35.5-45.6) % RDW 17.0 H (13.2-15.2) % Plt Count 98 L (140-440) K/mm3 Lymph % (Auto) 4.3 L (13.4-35.0) % Lymph # (Auto) 0.7 L (1.2-5.4) K/mm3 Baso # (Auto) 0.2 H (0.0-0.1) K/mm3 Seg Neutrophils % 89.8 H (40.0-70.0) % Seg Neuts % (Manual) 93.0 H (40.0-70.0) % Lymphocytes % (Manual) 4.0 L (13.4-35.0) % Seg Neutrophils # 15.4 H (1.8-7.7) K/mm3 Seg Neutrophils # Man 13.8 H (1.8-7.7) K/mm3 Lymphocytes # (Manual) 0.6 L (1.2-5.4) K/mm3 APTT (24.2-36.6) Sec. Potassium (3.6-5.0) mmol/L BUN (9-20) mg/dL Creatinine (0.8-1.3) mg/dL POC Glucose 191 H (70-105) mg/dL Calcium (8.4-10.2) mg/dL Phosphorus (2.5-4.5) mg/dL 03/28/20 03/28/20 Range/Units 05:49 05:49 WBC (4.5-11.0) K/mm3 RBC (3.65-5.03) M/mm3 Hgb (11.8-15.2) gm/dl Hct (35.5-45.6) % RDW (13.2-15.2) % Plt Count (140-440) K/mm3 Lymph % (Auto) (13.4-35.0) % Lymph # (Auto) (1.2-5.4) K/mm3 Baso # (Auto) (0.0-0.1) K/mm3 Seg Neutrophils % (40.0-70.0) % Seg Neuts % (Manual) (40.0-70.0) % Lymphocytes % (Manual) (13.4-35.0) % Seg Neutrophils # (1.8-7.7) K/mm3 Seg Neutrophils # Man (1.8-7.7) K/mm3 Lymphocytes # (Manual) (1.2-5.4) K/mm3 APTT 69.2 H* (24.2-36.6) Sec. Potassium 3.3 L (3.6-5.0) mmol/L BUN 52 H (9-20) mg/dL Creatinine 3.3 H (0.8-1.3) mg/dL POC Glucose (70-105) mg/dL Calcium 8.1 L (8.4-10.2) mg/dL Phosphorus 6.10 H (2.5-4.5) mg/dL HEART Score - HEART Score Troponin: Troponin T 0.047 ng/mL (0.00-0.029) H D 03/16/20 22:25
[2020-03-29] MEDS: VANCOMYCIN 250 MG/10 ML ORAL LIQD PO SCH ×4 (00:25→18:53)
[2020-03-29 00:58] LABS: Basophils # (Auto) 0.1 K/mm3 (0.0-0.1); Basophils % (Auto) 0.6 % (0.0-1.8); Eosinophils # (Auto) 0.2 K/mm3 (0.0-0.4); Eosinophils % (Auto) 1.1 % (0.0-4.3); Hematocrit 30.6 % (35.5-45.6); Hemoglobin 9.8 gm/dl (11.8-15.2); Lymphocytes # (Auto) 2.1 K/mm3 (1.2-5.4); Lymphocytes % (Auto) 11.7 % (13.4-35.0); Mean Corpuscular HGB Conc 32 % (32-34); Mean Corpuscular Volume 95 fl (84-94); Monocytes # (Auto) 1.1 K/mm3 (0.0-0.8); Red Blood Count 3.21 M/mm3 (3.65-5.03); Red Cell Distribution Width 17.4 % (13.2-15.2)
[2020-03-29 01:03] LABS: Platelet Count 83 K/mm3 (140-440)
[2020-03-29 07:06] LABS: Calcium 8.1 mg/dL (8.4-10.2)
[2020-03-29] MEDS ORDERED: SODIUM CHLORIDE 0.9% 250ML 250 ML ONE (08:50)
[2020-03-29] MEDS ORDERED: SODIUM CHLORIDE 0.9% 500 ML 500 ML ONE (08:50)
[2020-03-29] MEDS ORDERED: SODIUM CHLORIDE 0.9% 100 ML ONE (08:50)
[2020-03-29] MEDS ORDERED: WATER FOR INJ Sterile (PF) 10 ML ONE (08:58)
[2020-03-29] MEDS: LIDOCAINE (2%) 20 MG/1 ML VIAL 20 ML MDV INFILTRATI ONE ×2 (09:15→09:18)
[2020-03-29] MEDS: BIVALIRUDIN 250 MG INJ IV ONE ×2 (09:15→09:18)
[2020-03-29] MEDS: INSULIN LISPRO 100 UNIT/ML VIAL 3 mL SUB-Q SCH ×4 (09:42→22:17)
[2020-03-29] MEDS: HEPARIN 5,000 UNIT/1 ML VIAL SUB-Q SCH ×2 (09:42→22:17)
[2020-03-29] MEDS: MIDODRINE 5 MG TAB PO SCH ×3 (09:42→18:52)
[2020-03-29] MEDS: FAMOTIDINE 20 MG TAB PO SCH (09:43)
[2020-03-29] MEDS: methylPREDNISolone Sod Succinate 40 MG/1 ML INJ IV SCH (09:43)
--- NOTE | 2020-03-29 09:51 | Operative Report ---
Operative Report Operative Report: Date of procedure: 03/29/2020 Pre-operative diagnosis: Renal Failure Post-operative diagnosis: Same Procedure(s): 1. Ultrasound-Guided Access Right Internal Vein 2. Placement of 23 cm Bard GlidePath Permacath 3. Radiologic Supervision with Interpretation Surgeon: Ayush Vance MD [employer] [place]: None Anesthesia: Local EBL: Minimal Counts: Correct Complications: None Condition: Stable Findings: Successful placement of right IJ permacath with distal tip in the right atrium and no evidence of pneumothorax at the completion of the case. Specimen: None Indication: The patient is an 79-year-old male who presented with sepsis and renal failure that initially had placement of a femoral Vas-Cath. He has now improved but still has renal failure and requires placement of a permacath so that he can be discharged from the hospital. He and his family were given the risk, benefits, and alternative procedures and consented to the procedure. Description of Procedure: The patient was brought to the equipment operator/laborer and laid in supine position and his right neck and chest were prepped and draped in normal sterile fashion. Ultrasound was used to identify the right internal jugular vein and the overlying skin and soft tissue was anesthetized with lidocaine. An 11 blade was used to make a small stab incision and a 21-gauge micropuncture needle was used with ultrasound guidance to enter the right internal jugular vein. A 0.018 micropuncture wire was advanced into the inferior vena cava under fluoroscopy and after removing the needle the micropuncture sheath was advanced into the internal jugular vein by Seldinger technique. The wire and inner cannula were removed and a 0.035 J-wire was advanced into the inferior vena cava under direct fluoroscopic visualization. The tract was serially dilated up to a 16 Polish peel-away safety sheath. An exit site on the chest was then chosen and the presumed tunnel was anesthetized with lidocaine. A small stab incision was made on the chest and then the permacath was connected to the tunneler and pulled antegrade through the tunnel. The J-wire and inner cannula from the SafeSheath were removed and the catheter was inserted into the safe sheath. The safe sheath was then peeled away while advancing the catheter. The catheter was positioned under fluoroscopy with the distal tip in the right atrium. Once in adequate position, both ports were aspirated, flushed, and primed with the appropriate amount of Angiomax secondary to possible GM. The neck incision was then closed with 4-0 Monocryl in interrupted subcuticular fashion and dressed with Dermabond. The permacath was secured in place with a 2-0 Ethilon in interrupted fashion and dressed with a sterile dressing. Final fluoroscopy demonstrated the catheter was in adequate position with the distal tip in the right atrium and no evidence of pneumothorax. The patient tolerated the procedure well. All sponge, needle, and instrument counts were correct. The patient was taken to recovery in stable condition.
--- NOTE | 2020-03-29 10:19 | Progress Note ---
Assessment and Plan Cultures: Blood cultures 03/16/2020 no growth today Assessment: 79 years old male with history of hypertension, diabetes mellitus, chronic kidney disease, previous CVA, chronic leg lymphedema, shelter res ident, known to our service due to previous ESBL E. coli bacteremia from UTI on 03/02/2020, admitted on due to 24 hours history of generalized weakness and confusion associated with subjective fever: #Severe sepsis with septic shock: Shock resolved, remains with leukocytosis likely due to IV steroids. Source likely severe Cdiff #Severe C diff colitis: was on ertapenem for 2 weeks #Recent ESBL E. coli bacteremia patient was discharged on ertapenem 1 g IV daily for 14 days end date supposed to be 03/20/2020 #Acute encephalopathy: Likely secondary to sepsis/uremia, resolved. #Acute on chronic kidney failure #Bilateral leg lymphedema with chronic skin changes #Exfoliative rash: ? Drug allergy, seems improving #Thrombocytopenia/anemia. Heme-onc and IMS Recommendations: - Continue vancomycin 250 mg PO 4 times daily total 14 days -day 13 of 14 - Taper down IV steroids -hopefully leukocytosis improves - Remove femoral vas cath secondary to high risk for CLABSI -Monitor leukocytosis Will follow. Ivette Zamudio MD Infectious Diseases Tram Inspector [facility] M [phone] O [phone] Subjective Date of service: 03/29/20 Principal diagnosis: Acute hypoxemic respiratory failure; Septic shock; Ac. encephalopathy; ALEJANDRO Interval history: Patient is feeling better, wants to go home, no fever Objective - Exam Narrative Exam: General appearance: Alert in no acute distress Eyes: anicteric sclerae, moist conjunctivae; no lid-lag; PERRLA lid edema HENT: Normocephalic, Atraumatic; normal external ears, nares open, oropharynx limited Neck: supple, tracheal midline, no JVD Lungs: Diminished breath sounds bilaterally CV: RRR no murmur Abdomen: Soft, obese, distended Extremities: Extensive bilateral leg edema, chronic skin changes Skin: Extensive skin desquamation Psych: Alert Neuro: Alert Rectal tube with diarrhea Midline Femoral vas cath - Constitutional Vitals: Vital Signs Temp Pulse Resp BP Pulse Ox 97.5 F L 74 20 129/53 100 03/28/20 22:55 03/29/20 08:06 03/28/20 22:55 03/29/20 08:06 03/29/20 08:06 Temperature -Last 24 Hours Temperature 97.5 F Temperature 97.4 F Temperature 98.6 F - Labs CBC & Chem 7: 03/29/20 00:34 03/29/20 06:26 Labs: Abnormal lab results 03/29/20 03/29/20 03/29/20 Range/Units 00:34 06:26 06:26 WBC 17.7 H (4.5-11.0) K/mm3 RBC 3.21 L (3.65-5.03) M/mm3 Hgb 9.8 L (11.8-15.2) gm/dl Hct 30.6 L (35.5-45.6) % MCV 95 H (84-94) fl RDW 17.4 H (13.2-15.2) % Plt Count 83 L (140-440) K/mm3 Lymph % (Auto) 11.7 L (13.4-35.0) % [place] # (Auto) 1.1 H (0.0-0.8) K/mm3 Seg Neutrophils % 80.6 H (40.0-70.0) % Seg Neutrophils # 14.3 H (1.8-7.7) K/mm3 APTT 48.6 H (24.2-36.6) Sec. Potassium 3.2 L (3.6-5.0) mmol/L BUN 57 H (9-20) mg/dL Creatinine 3.7 H (0.8-1.3) mg/dL Calcium 8.1 L (8.4-10.2) mg/dL Phosphorus 7.20 H (2.5-4.5) mg/dL
--- NOTE | 2020-03-29 12:34 | Progress Note ---
Assessment and Plan Assessment: Acute renal failure likely due to ischemic ATN Metabolic encphalopathy Metabolic acidosis Sepsis due to UTI UTI S/P Hypokalemia Anemia Plan: Renal labs reviewed. Serum creatinine 3.7 today, yesterday's was 3.3 24 hr urine creatinine clearance results- GFR 10 ml/min S/P removal of vasc cath and placement of right IJ Perm-cath placement today on 03/29/20 Hemodialysis today for UF and clearance Epogen with HD for anemia Renally dose medications Strict I&O monitoring Obtain daily weights Monitor renal function closely ID evaluated pt, on Abx Patient accepted to [facility] Plan of care reviewed with Dr. Zambrano Subjective Date of service: 03/29/20 Principal diagnosis: Acute hypoxemic respiratory failure; Septic shock; Ac. encephalopathy; ALEJANDRO Interval history: Patient seen in dialysis unit undergoing HD. He is S/P perm-cath placement this morning Objective - Vital Signs Vital signs: Vital Signs - 12hr 03/29/20 03/29/20 03/29/20 08:06 10:15 10:30 Pulse Rate 74 69 62 Blood Pressure 129/53 118/58 120/49 O2 Sat by Pulse 100 Oximetry 03/29/20 03/29/20 03/29/20 10:45 11:00 11:15 Pulse Rate 75 60 64 Blood Pressure 106/45 101/53 92/47 O2 Sat by Pulse Oximetry 03/29/20 03/29/20 11:30 11:31 Pulse Rate 58 L 64 Blood Pressure 109/53 89/48 O2 Sat by Pulse Oximetry - General Appearance General appearance: obese, chronically ill EENT: ATNC Neck: no JVD Respiratory: Present: Decreased Breath Sounds Cardiology: S1S2 Gastrointestinal: normoactive bowel sounds Integumentary: other (dry, flaky, desqumation generalized) Musculoskeletal: joint swelling, other (edema to both upper and lower extremitties noted) - Lab 03/29/20 00:34 03/29/20 06:26 Most recent lab results ABG pH 7.378 pH Units (7.350-7.450) 03/20/20 16:35 ABG pCO2 38.6 mm Hg 03/20/20 16:35 ABG pO2 63.9 mm Hg (80.0-90.0) L 03/20/20 16:35 ABG HCO3 22.2 mmol/L (20.0-26.0) 03/20/20 16:35 ABG O2 Saturation 90.9 % (95.0-99.0) L 03/20/20 16:35 Calcium 8.1 mg/dL (8.4-10.2) L 03/29/20 06:26 Phosphorus 7.20 mg/dL (2.5-4.5) H 03/29/20 06:26 Magnesium 1.80 mg/dL (1.7-2.3) 03/24/20 05:19 Urine Creatinine 63.7 mg/dL (0.1-20.0) H 03/26/20 14:18 Urine Sodium 53 mmol/L 03/17/20 Unknown Urine Total Protein 328 mg/dL (5-11.8) H 03/17/20 Unknown Medications & Allergies - Medications Allergies/Adverse Reactions: Allergies diclofenac [Diclofenac] Allergy (Verified 10/05/18 08:11) Rash Home Medications: Home Medications Medication Instructions Recorded Confirmed Last Taken Type Acetaminophen [Acetaminophen TAB] 650 mg PO Q4H PRN #1 tablet 02/28/17 03/19/20 Unknown Rx Aspirin [Aspirin BABY CHEW TAB] 81 mg PO DAILY #1 tab.chew 02/28/17 03/19/20 Unknown Rx Ferrous Sulfate [Feosol 325 MG tab] 325 mg PO QDAY #1 tablet 02/28/17 03/19/20 Unknown Rx Gabapentin 300 mg PO Q8HR #1 capsule 02/28/17 03/19/20 Unknown Rx Ondansetron [Zofran INJ] 4 mg IV Q8H PRN #1 vial 02/28/17 03/19/20 Unknown Rx amLODIPine 10 mg PO DAILY #1 tablet 02/28/17 03/19/20 Unknown Rx Ertapenem [INVanz] 1 gm IV QDAY vial 03/10/20 03/19/20 Unknown Rx Active Medications: Generic Name Dose Route Start Last Admin Trade Name Freq PRN Reason Stop Dose Admin Acetaminophen 650 mg 03/19/20 18:21 03/19/20 18:39 Tylenol FEEDTUBE 650 mg Q6H PRN Administration Pain, Mild (1-3) Albuterol 2.5 mg 03/16/20 17:00 Proventil IH Q3HRT PRN Shortness Of Breath Lipase/Protease/Amylase 1 each 03/17/20 17:[address] 10,500 Unit FEEDTUBE PRN PRN For Clogged Feeding Tube Dextrose 50 ml 03/27/20 12:23 D50w (25gm) Syringe IV Q30MIN PRN Hypoglycemia Protocol Epoetin Colin 10,000 unit 03/24/20 17:00 Procrit IV DAYLIN [facility] Famotidine 20 mg 03/28/20 10:00 03/29/20 09:43 Pepcid PO Not Given DAILY [facility] Heparin Sodium (Porcine) 5,000 unit 03/28/20 10:00 03/29/20 09:42 Heparin SUB-Q Not Given Q12HR [facility] Hydromorphone HCl 0.25 mg 03/16/20 17:30 Dilaudid IV Q4H PRN Pain, Moderate (4-6) Hydrophilic Ointment 1 applic 03/21/20 07:50 03/21/20 16:38 Aquaphor TP 1 applic Q12HR PRN Administration DRY SKIN Sodium Chloride 100 mls @ 999 mls/hr 03/26/20 16:20 Nacl 0.9% IV DAYLIN PRN Hypotension Insulin Glargine 6 units 03/27/20 22:00 Lantus SUB-Q QHS [facility] Insulin Human Lispro 0 unit 03/27/20 22:00 03/29/20 09:42 Humalog SUB-Q Not Given ACHS [facility] Protocol Methylprednisolone Sodium Succinate 20 mg 03/27/20 12:00 03/29/20 09:43 Solu-Medrol IV 03/30/20 11:59 Not Given Q24HR [facility] Midodrine 10 mg 03/20/20 12:00 03/29/20 09:42 Proamatine PO Not Given TID@0800,1200,1600 [facility] Simple Syrup 15 ml 03/17/20 17:12 Simple Syrup FEEDTUBE PRN PRN Hypoglycemia Simple Syrup 30 ml 03/17/20 17:12 Simple Syrup FEEDTUBE PRN PRN Hypoglycemia Sodium Bicarbonate 325 mg 03/17/20 17:12 Sodium Bicarbonate FEEDTUBE PRN PRN For Clogged Feeding Tube Sodium Chloride 10 ml 03/16/20 22:00 03/29/20 09:43 Sodium Chloride Flush Syringe 10 Ml IV Not Given BID IDRIS Sodium Chloride 10 ml 03/16/20 17:00 Sodium Chloride Flush Syringe 10 Ml IV PRN PRN LINE FLUSH Vancomycin HCl 250 mg 03/20/20 12:00 03/29/20 06:20 Vancomycin Po PO 04/03/20 06:01 Not Given Q6HR IDIRS
--- NOTE | 2020-03-29 13:43 | Progress Note ---
Assessment and Plan Patient sleeping. Patient is on room air.Not using his O2. O2 saturation 96%.O2 saturation fluctuating. Recommend Keep O2 2 litres via nasal canula. No acute respiratory distress. Patient afebrile. Has leukocytosis. Patient is on vancomy [place]. Chest xray done 03/20/20 reported moderate left pleural effusion with similar bibasilar opacities. No pneumothorax. ultrasound of chest 03/27/20 reported 6.3 cm focal area of hypoechogenicity in the left upper quadrant. This may represent a focal area of fluid in the left upper quadrant, though the study is limited by overlying bandage material. Consider further evaluation with CT, as clinically indicated. Recommend repeat chest xray in few days. If still has the infiltrate, then cons ider CAT scan of chest. - Patient Problems (1) Sepsis Current Visit: No Status: Acute Plan to address problem: Patient is on Vancomycin. (2) Suspected 2019 novel coronavirus infection Current Visit: No Status: Acute Plan to address problem: Lu virus reported negative. (3) Acute kidney injury (ALEJANDRO) with acute tubular necrosis (ATN) Current Visit: Yes Status: Acute Plan to address problem: Management as per nephrology. (4) History of ESBL E. coli infection Current Visit: Yes Status: Acute Plan to address problem: Management as per infectious diseases. (5) Toxic metabolic encephalopathy Current Visit: Yes Status: Acute Plan to address problem: Management as per primary care. (6) Cellulitis of right leg Current Visit: No Status: Acute Plan to address problem: Patient is on vancomycin. (7) Pleural effusion, left Current Visit: Yes Status: Acute Plan to address problem: ultrasound of chest 03/27/20 reported 6.3 cm focal area of hypoechogenicity in the left upper quadrant. This may represent a focal area of fluid in the left upper quadrant, though the study is limited by overlying bandage material. Consider further evaluation with CT, as clinically indicated. Repeat chest xray in few days and decide about further Plan. (8) Pulmonary infiltrates on CXR Current Visit: Yes Status: Acute Plan to address problem: Patient is on vancomycin. 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 Subjective Date of service: 03/29/20 Principal diagnosis: Acute hypoxemic respiratory failure; Septic shock; Ac. encephalopathy; ALEJANDRO Interval history: Patient sleeping. Patient is on room air.Not using his O2. O2 saturation 96%.O2 saturation fluctuating. Recommend Keep O2 2 litres via nasal canula. No acute respiratory distress. Patient afebrile. Has leukocytosis. Patient is on vancomycin. Chest xray done 03/20/20 reported moderate left pleural effusion with similar bibasilar opacities. No pneumothorax. ultrasound of chest 03/27/20 reported 6.3 cm focal area of hypoechogenicity in the left upper quadrant. This may represent a focal area of fluid in the left upper quadrant, though the study is limited by overlying bandage material. Consider further evaluation with CT, as clinically indicated. Recommend repeat chest xray in few days. If still has the infiltrate, then consider CAT scan of chest. Objective Vital Signs - 12hr 03/29/20 03/29/20 03/29/20 08:06 10:15 10:30 Pulse Rate 74 69 62 Blood Pressure 129/53 118/58 120/49 O2 Sat by Pulse 100 Oximetry 03/29/20 03/29/20 03/29/20 10:45 11:00 11:15 Pulse Rate 75 60 64 Blood Pressure 106/45 101/53 92/47 O2 Sat by Pulse Oximetry 03/29/20 03/29/20 11:30 11:31 Pulse Rate 58 L 64 Blood Pressure 109/53 89/48 O2 Sat by Pulse Oximetry Constitutional: no acute distress, alert, appears uncomfortable, other (elderly obese male with mild respiratory effort at rest) Eyes: non-icteric ENT: oropharynx dry Neck: supple, no JVD, other (large neck circumference) Effort: mildly labored Ascultation: Bilateral: diminished breath sounds, rhonchi Percussion: Bilateral: not dull Cardiovascular: regular rate and rhythm Gastrointestinal: normoactive bowel sounds, soft, non-tender, non-distended (protuberant) Integumentary: rash (Generalized skin flaking/with superficial skin sloughing without erythema or warmth on chest wall), decubitus ulcer (see RN/WCN notes for details) Extremities: pulses normal, cool, other (Patient has stasis dermatitis and wounds on both legs.) Neurologic: non-focal exam (grossly), pupils equal and round, CN II-XII normal Psychiatric: other (flat affect to depressed at times) CBC and BMP: 11/11/20 00:34 03/29/20 06:26 ABG, PT/INR, D-dimer: ABG ABG pH 7.378 pH Units (7.350-7.450) 03/20/20 16:35 POC ABG pCO2 37.3 mmHg (32.0-48.0) 03/18/20 12:14 ABG pCO2 38.6 mm Hg 03/20/20 16:35 POC ABG pO2 67.4 mmHg (83-108) L 03/18/20 12:14 ABG pO2 63.9 mm Hg (80.0-90.0) L 03/20/20 16:35 POC ABG HCO3 14.1 03/18/20 12:14 ABG O2 Saturation 90.9 % (95.0-99.0) L 03/20/20 16:35 PT/INR, D-dimer PT 14.3 Sec. (12.2-14.9) 03/22/20 16:30 INR 1.09 (0.87-1.13) 03/22/20 16:30 Abnormal lab findings: Abnormal Labs 03/16/20 03/16/20 03/16/20 14:22 14:22 14:23 WBC 32.2 H RBC 2.93 L Hgb 8.9 L Hct 28.2 L MCV 96 H MCHC RDW 18.1 H Plt Count Lymph % (Auto) Lymph # (Auto) [place] # (Auto) Baso # (Auto) Seg Neutrophils % Seg Neuts % (Manual) 82.0 H Lymphocytes % (Manual) 10.0 L Nucleated RBC % 3.0 H Seg Neutrophils # Seg Neutrophils # Man 26.4 H Lymphocytes # (Manual) Monocytes # (Manual) 1.9 H PT INR APTT ABG pH POC ABG pO2 ABG pO2 ABG HCO3 ABG O2 Saturation ABG Base Excess ABG Hemoglobin ABG Potassium ABG Chloride ABG Glucose Oxyhemoglobin Sodium Potassium 3.3 L Chloride 108.9 H Carbon Dioxide 12 L BUN 59 H Creatinine 5.9 H Glucose 142 H POC Glucose Calcium 7.7 L Phosphorus Magnesium Alkaline Phosphatase 224 H Lactate Dehydrogenase Total Creatine Kinase Troponin T 0.033 H C-Reactive Protein Total Protein 5.4 L Albumin 1.9 L LDL Cholesterol Direct 35 L HDL Cholesterol 37 L Arterial Blood Glucose Arterial Blood Ionized Calcium Urine WBC (Auto) Urine Creatinine Ur Creatinine 24 Hour Urine Total Protein Crossmatch 03/16/20 03/16/20 03/16/20 14:27 19:50 21:15 WBC RBC Hgb Hct MCV MCHC RDW Plt Count Lymph % (Auto) Lymph # (Auto) [place] # (Auto) Baso # (Auto) Seg Neutrophils % Seg Neuts % (Manual) Lymphocytes % (Manual) Nucleated RBC % Seg Neutrophils # Seg Neutrophils # Man Lymphocytes # (Manual) Monocytes # (Manual) PT 17.2 H INR 1.37 H APTT 51.3 H ABG pH POC ABG pO2 ABG pO2 ABG HCO3 ABG O2 Saturation ABG Base Excess ABG Hemoglobin ABG Potassium ABG Chloride ABG Glucose Oxyhemoglobin Sodium Potassium Chloride Carbon Dioxide BUN Creatinine Glucose POC Glucose Calcium Phosphorus Magnesium Alkaline Phosphatase Lactate Dehydrogenase Total Creatine Kinase Troponin T 0.031 H C-Reactive Protein Total Protein Albumin LDL Cholesterol Direct HDL Cholesterol Arterial Blood Glucose Arterial Blood Ionized Calcium Urine WBC (Auto) > 182.0 H Urine Creatinine Ur Creatinine 24 Hour Urine Total Protein Crossmatch 03/16/20 03/17/20 03/17/20 22:25 11:13 11:13 WBC 34.4 H RBC 2.60 L Hgb 7.8 L Hct 25.2 L MCV 97 H MCHC 31 L RDW 18.7 H Plt Count Lymph % (Auto) Lymph # (Auto) [place] # (Auto) Baso # (Auto) Seg Neutrophils % Seg Neuts % (Manual) 88.0 H Lymphocytes % (Manual) 1.0 L Nucleated RBC % 13.0 H Seg Neutrophils # Seg Neutrophils # Man 30.3 H Lymphocytes # (Manual) 0.3 L Monocytes # (Manual) PT INR APTT ABG pH POC ABG pO2 ABG pO2 ABG HCO3 ABG O2 Saturation ABG Base Excess ABG Hemoglobin ABG Potassium ABG Chloride ABG Glucose Oxyhemoglobin Sodium Potassium 3.3 L Chloride 108.5 H Carbon Dioxide 16 L BUN 57 H Creatinine 5.5 H Glucose 325 H POC Glucose Calcium 7.0 L Phosphorus Magnesium Alkaline Phosphatase Lactate Dehydrogenase Total Creatine Kinase Troponin T 0.047 H D C-Reactive Protein Total Protein Albumin LDL Cholesterol Direct HDL Cholesterol Arterial Blood Glucose Arterial Blood Ionized Calcium Urine WBC (Auto) Urine Creatinine Ur Creatinine 24 Hour Urine Total Protein Crossmatch 03/17/20 03/17/20 03/17/20 11:13 11:40 Unknown WBC RBC Hgb Hct MCV MCHC RDW Plt Count Lymph % (Auto) Lymph # (Auto) [place] # (Auto) Baso # (Auto) Seg Neutrophils % Seg Neuts % (Manual) Lymphocytes % (Manual) Nucleated RBC % Seg Neutrophils # Seg Neutrophils # Man Lymphocytes # (Manual) Monocytes # (Manual) PT INR APTT ABG pH 7.229 L POC ABG pO2 ABG pO2 98.3 H ABG HCO3 14.6 L ABG O2 Saturation ABG Base Excess -12.0 L ABG Hemoglobin 8.9 L ABG Potassium ABG Chloride ABG Glucose Oxyhemoglobin Sodium Potassium Chloride Carbon Dioxide BUN Creatinine Glucose POC Glucose Calcium Phosphorus Magnesium Alkaline Phosphatase Lactate Dehydrogenase Total Creatine Kinase 373 H Troponin T C-Reactive Protein Total Protein Albumin LDL Cholesterol Direct HDL Cholesterol Arterial Blood Glucose Arterial Blood Ionized Calcium Urine WBC (Auto) > 182.0 H Urine Creatinine Ur Creatinine 24 Hour Urine Total Protein Crossmatch 03/17/20 03/18/20 03/18/20 Unknown 04:40 04:40 WBC 32.0 H RBC 2.56 L Hgb 7.9 L Hct 24.7 L MCV 96 H MCHC RDW 18.2 H Plt Count Lymph % (Auto) Lymph # (Auto) [place] # (Auto) Baso # (Auto) Seg Neutrophils % Seg Neuts % (Manual) Lymphocytes % (Manual) Nucleated RBC % Seg Neutrophils # Seg Neutrophils # Man Lymphocytes # (Manual) Monocytes # (Manual) PT INR APTT ABG pH POC ABG pO2 ABG pO2 ABG HCO3 ABG O2 Saturation ABG Base Excess ABG Hemoglobin ABG Potassium ABG Chloride ABG Glucose Oxyhemoglobin Sodium Potassium 2.7 L* Chloride 111.8 H Carbon Dioxide 12 L BUN 56 H Creatinine 4.6 H Glucose 347 H POC Glucose Calcium 6.7 L Phosphorus 5.40 H Magnesium Alkaline Phosphatase Lactate Dehydrogenase Total Creatine Kinase Troponin T C-Reactive Protein Total Protein Albumin LDL Cholesterol Direct HDL Cholesterol Arterial Blood Glucose Arterial Blood Ionized Calcium Urine WBC (Auto) Urine Creatinine 139.3 H Ur Creatinine 24 Hour Urine Total Protein 328 H Crossmatch 03/18/20 03/18/20 03/18/20 04:40 04:48 12:14 WBC RBC Hgb Hct MCV MCHC RDW Plt Count Lymph % (Auto) Lymph # (Auto) [place] # (Auto) Baso # (Auto) Seg Neutrophils % Seg Neuts % (Manual) Lymphocytes % (Manual) Nucleated RBC % Seg Neutrophils # Seg Neutrophils # Man Lymphocytes # (Manual) Monocytes # (Manual) PT INR APTT ABG pH 7.230 L 7.196 L POC ABG pO2 67.4 L ABG pO2 91.6 H ABG HCO3 13.7 L ABG O2 Saturation ABG Base Excess -12.8 L ABG Hemoglobin 9.2 L 9.9 L ABG Potassium 3.3 L ABG Chloride 112.0 H ABG Glucose 355 H Oxyhemoglobin 94.8 L Sodium Potassium Chloride Carbon Dioxide BUN Creatinine Glucose POC Glucose Calcium Phosphorus Magnesium 1.40 L Alkaline Phosphatase Lactate Dehydrogenase Total Creatine Kinase Troponin T C-Reactive Protein Total Protein Albumin LDL Cholesterol Direct HDL Cholesterol Arterial Blood Glucose 355 H Arterial Blood Ionized Calcium 4.5 L Urine WBC (Auto) Urine Creatinine Ur Creatinine 24 Hour Urine Total Protein Crossmatch 03/18/20 03/18/20 03/18/20 13:17 13:32 19:15 WBC RBC Hgb Hct MCV MCHC RDW Plt Count Lymph % (Auto) Lymph # (Auto) [place] # (Auto) Baso # (Auto) Seg Neutrophils % Seg Neuts % (Manual) Lymphocytes % (Manual) Nucleated RBC % Seg Neutrophils # Seg Neutrophils # Man Lymphocytes # (Manual) Monocytes # (Manual) PT INR APTT ABG pH POC ABG pO2 ABG pO2 ABG HCO3 ABG O2 Saturation ABG Base Excess ABG Hemoglobin ABG Potassium ABG Chloride ABG Glucose Oxyhemoglobin Sodium Potassium 3.0 L 3.4 L Chloride 107.2 H Carbon Dioxide 14 L 13 L BUN 59 H 67 H Creatinine 4.8 H 5.1 H Glucose 341 H 371 H POC Glucose 394 H Calcium 7.0 L 7.8 L Phosphorus Magnesium Alkaline Phosphatase Lactate Dehydrogenase Total Creatine Kinase Troponin T C-Reactive Protein Total Protein Albumin LDL Cholesterol Direct HDL Cholesterol Arterial Blood Glucose Arterial Blood Ionized Calcium Urine WBC (Auto) Urine Creatinine Ur Creatinine 24 Hour Urine Total Protein Crossmatch 03/18/20 03/18/20 03/19/20 19:21 23:00 01:32 EST WBC RBC Hgb Hct MCV MCHC RDW Plt Count Lymph % (Auto) Lymph # (Auto) [place] # (Auto) Baso # (Auto) Seg Neutrophils % Seg Neuts % (Manual) Lymphocytes % (Manual) Nucleated RBC % Seg Neutrophils # Seg Neutrophils # Man Lymphocytes # (Manual) Monocytes # (Manual) PT INR APTT ABG pH POC ABG pO2 ABG pO2 ABG HCO3 ABG O2 Saturation ABG Base Excess ABG Hemoglobin ABG Potassium ABG Chloride ABG Glucose Oxyhemoglobin Sodium Potassium Chloride Carbon Dioxide BUN Creatinine Glucose POC Glucose 453 H 360 H 338 H Calcium Phosphorus Magnesium Alkaline Phosphatase Lactate Dehydrogenase Total Creatine Kinase Troponin T C-Reactive Protein Total Protein Albumin LDL Cholesterol Direct HDL Cholesterol Arterial Blood Glucose Arterial Blood Ionized Calcium Urine WBC (Auto) Urine Creatinine Ur Creatinine 24 Hour Urine Total Protein Crossmatch 03/19/20 03/19/20 03/19/20 04:10 05:10 05:10 WBC 25.8 H RBC 3.61 L Hgb 10.9 L D Hct MCV 100 H MCHC 30 L RDW 19.1 H Plt Count Lymph % (Auto) Lymph # (Auto) [place] # (Auto) Baso # (Auto) Seg Neutrophils % Seg Neuts % (Manual) Lymphocytes % (Manual) Nucleated RBC % Seg Neutrophils # Seg Neutrophils # Man Lymphocytes # (Manual) Monocytes # (Manual) PT INR APTT ABG pH 7.309 L POC ABG pO2 ABG pO2 69.4 L ABG HCO3 17.9 L ABG O2 Saturation 92.4 L ABG Base Excess -7.6 L ABG Hemoglobin 8.1 L ABG Potassium ABG Chloride ABG Glucose Oxyhemoglobin 90.8 L Sodium Potassium Chloride Carbon Dioxide BUN Creatinine Glucose POC Glucose Calcium Phosphorus 5.60 H Magnesium Alkaline Phosphatase Lactate Dehydrogenase Total Creatine Kinase Troponin T C-Reactive Protein Total Protein Albumin LDL Cholesterol Direct HDL Cholesterol Arterial Blood Glucose Arterial Blood Ionized Calcium Urine WBC (Auto) Urine Creatinine Ur Creatinine 24 Hour Urine Total Protein Crossmatch 03/19/20 03/19/20 03/19/20 10:00 11:22 Unknown WBC RBC Hgb Hct MCV MCHC RDW Plt Count Lymph % (Auto) Lymph # (Auto) [place] # (Auto) Baso # (Auto) Seg Neutrophils % Seg Neuts % (Manual) Lymphocytes % (Manual) Nucleated RBC % Seg Neutrophils # Seg Neutrophils # Man Lymphocytes # (Manual) Monocytes # (Manual) PT 15.3 H INR 1.18 H APTT ABG pH POC ABG pO2 ABG pO2 ABG HCO3 ABG O2 Saturation ABG Base Excess ABG Hemoglobin ABG Potassium ABG Chloride ABG Glucose Oxyhemoglobin Sodium Potassium 3.0 L Chloride Carbon Dioxide BUN 69 H Creatinine 5.4 H Glucose 250 H POC Glucose 274 H Calcium 7.9 L Phosphorus Magnesium Alkaline Phosphatase Lactate Dehydrogenase Total Creatine Kinase Troponin T C-Reactive Protein Total Protein Albumin LDL Cholesterol Direct HDL Cholesterol Arterial Blood Glucose Arterial Blood Ionized Calcium Urine WBC (Auto) Urine Creatinine Ur Creatinine 24 Hour Urine Total Protein Crossmatch 03/20/20 03/20/20 03/20/20 01:56 05:22 06:35 WBC 27.5 H RBC 2.57 L Hgb 7.9 L D Hct 23.3 L D MCV MCHC RDW 17.7 H Plt Count Lymph % (Auto) Lymph # (Auto) [place] # (Auto) Baso # (Auto) Seg Neutrophils % Seg Neuts % (Manual) Lymphocytes % (Manual) Nucleated RBC % Seg Neutrophils # Seg Neutrophils # Man Lymphocytes # (Manual) Monocytes # (Manual) PT INR APTT ABG pH POC ABG pO2 ABG pO2 ABG HCO3 ABG O2 Saturation ABG Base Excess ABG Hemoglobin ABG Potassium ABG Chloride ABG Glucose Oxyhemoglobin Sodium Potassium Chloride Carbon Dioxide BUN Creatinine Glucose POC Glucose 145 H 181 H Calcium Phosphorus Magnesium Alkaline Phosphatase Lactate Dehydrogenase Total Creatine Kinase Troponin T C-Reactive Protein Total Protein Albumin LDL Cholesterol Direct HDL Cholesterol Arterial Blood Glucose Arterial Blood Ionized Calcium Urine WBC (Auto) Urine Creatinine Ur Creatinine 24 Hour Urine Total Protein Crossmatch 03/20/20 03/20/20 03/20/20 06:35 12:10 13:30 WBC RBC Hgb Hct MCV MCHC RDW Plt Count Lymph % (Auto) Lymph # (Auto) [place] # (Auto) Baso # (Auto) Seg Neutrophils % Seg Neuts % (Manual) Lymphocytes % (Manual) Nucleated RBC % Seg Neutrophils # Seg Neutrophils # Man Lymphocytes # (Manual) Monocytes # (Manual) PT INR APTT ABG pH POC ABG pO2 ABG pO2 ABG HCO3 ABG O2 Saturation ABG Base Excess ABG Hemoglobin ABG Potassium ABG Chloride ABG Glucose Oxyhemoglobin Sodium Potassium 2.9 L* Chloride Carbon Dioxide BUN 69 H Creatinine 5.1 H Glucose 146 H POC Glucose 164 H Calcium 8.2 L Phosphorus 5.40 H Magnesium Alkaline Phosphatase Lactate Dehydrogenase Total Creatine Kinase Troponin T C-Reactive Protein Total Protein Albumin LDL Cholesterol Direct HDL Cholesterol Arterial Blood Glucose Arterial Blood Ionized Calcium Urine WBC (Auto) 153.0 H Urine Creatinine Ur Creatinine 24 Hour Urine Total Protein Crossmatch 03/20/20 03/20/20 03/20/20 16:00 16:35 17:23 WBC RBC Hgb Hct MCV MCHC RDW Plt Count Lymph % (Auto) Lymph # (Auto) [place] # (Auto) Baso # (Auto) Seg Neutrophils % Seg Neuts % (Manual) Lymphocytes % (Manual) Nucleated RBC % Seg Neutrophils # Seg Neutrophils # Man Lymphocytes # (Manual) Monocytes # (Manual) PT INR APTT ABG pH POC ABG pO2 ABG pO2 63.9 L ABG HCO3 ABG O2 Saturation 90.9 L ABG Base Excess -2.6 L ABG Hemoglobin 9.5 L ABG Potassium ABG Chloride ABG Glucose Oxyhemoglobin 89.3 L Sodium 146 H Potassium 3.3 L Chloride Carbon Dioxide BUN 72 H Creatinine 5.1 H Glucose 150 H POC Glucose 191 H Calcium 8.2 L Phosphorus Magnesium Alkaline Phosphatase Lactate Dehydrogenase Total Creatine Kinase Troponin T C-Reactive Protein Total Protein Albumin LDL Cholesterol Direct HDL Cholesterol Arterial Blood Glucose Arterial Blood Ionized Calcium Urine WBC (Auto) Urine Creatinine Ur Creatinine 24 Hour Urine Total Protein Crossmatch 03/21/20 03/21/20 03/21/20 00:48 03:55 03:55 WBC 22.4 H RBC 2.06 L Hgb 6.3 L Hct 19.2 L* MCV MCHC RDW 17.7 H Plt Count 86 L Lymph % (Auto) Lymph # (Auto) [place] # (Auto) Baso # (Auto) Seg Neutrophils % Seg Neuts % (Manual) Lymphocytes % (Manual) Nucleated RBC % Seg Neutrophils # Seg Neutrophils # Man Lymphocytes # (Manual) Monocytes # (Manual) PT INR APTT ABG pH POC ABG pO2 ABG pO2 ABG HCO3 ABG O2 Saturation ABG Base Excess ABG Hemoglobin ABG Potassium ABG Chloride ABG Glucose Oxyhemoglobin Sodium 148 H Potassium 2.8 L* Chloride 108.2 H Carbon Dioxide BUN 52 H Creatinine 3.8 H Glucose 130 H POC Glucose 158 H Calcium 7.6 L Phosphorus Magnesium Alkaline Phosphatase Lactate Dehydrogenase Total Creatine Kinase Troponin T C-Reactive Protein Total Protein Albumin LDL Cholesterol Direct HDL Cholesterol Arterial Blood Glucose Arterial Blood Ionized Calcium Urine WBC (Auto) Urine Creatinine Ur Creatinine 24 Hour Urine Total Protein Crossmatch 03/21/20 03/21/20 03/21/20 05:37 06:43 09:15 WBC RBC Hgb Hct MCV MCHC RDW Plt Count Lymph % (Auto) Lymph # (Auto) [place] # (Auto) Baso # (Auto) Seg Neutrophils % Seg Neuts % (Manual) Lymphocytes % (Manual) Nucleated RBC % Seg Neutrophils # Seg Neutrophils # Man Lymphocytes # (Manual) Monocytes # (Manual) PT INR APTT ABG pH POC ABG pO2 ABG pO2 ABG HCO3 ABG O2 Saturation ABG Base Excess ABG Hemoglobin ABG Potassium ABG Chloride ABG Glucose Oxyhemoglobin Sodium Potassium 3.5 L D Chloride Carbon Dioxide BUN 56 H Creatinine 4.3 H Glucose 104 H POC Glucose 159 H Calcium Phosphorus Magnesium Alkaline Phosphatase Lactate Dehydrogenase Total Creatine Kinase Troponin T C-Reactive Protein Total Protein Albumin LDL Cholesterol Direct HDL Cholesterol Arterial Blood Glucose Arterial Blood Ionized Calcium Urine WBC (Auto) Urine Creatinine Ur Creatinine 24 Hour Urine Total Protein Crossmatch See Detail 03/21/20 03/21/20 03/22/20 12:55 17:26 00:16 WBC RBC Hgb Hct MCV MCHC RDW Plt Count Lymph % (Auto) Lymph # (Auto) [place] # (Auto) Baso # (Auto) Seg Neutrophils % Seg Neuts % (Manual) Lymphocytes % (Manual) Nucleated RBC % Seg Neutrophils # Seg Neutrophils # Man Lymphocytes # (Manual) Monocytes # (Manual) PT INR APTT ABG pH POC ABG pO2 ABG pO2 ABG HCO3 ABG O2 Saturation ABG Base Excess ABG Hemoglobin ABG Potassium ABG Chloride ABG Glucose Oxyhemoglobin Sodium Potassium Chloride Carbon Dioxide BUN Creatinine Glucose POC Glucose 157 H 128 H 148 H Calcium Phosphorus Magnesium Alkaline Phosphatase Lactate Dehydrogenase Total Creatine Kinase Troponin T C-Reactive Protein Total Protein Albumin LDL Cholesterol Direct HDL Cholesterol Arterial Blood Glucose Arterial Blood Ionized Calcium Urine WBC (Auto) Urine Creatinine Ur Creatinine 24 Hour Urine Total Protein Crossmatch 03/22/20 03/22/20 03/22/20 04:00 04:43 05:00 WBC 26.2 H RBC 3.16 L Hgb 9.6 L D Hct 29.1 L D MCV MCHC RDW 18.2 H Plt Count 86 L Lymph % (Auto) Lymph # (Auto) [place] # (Auto) Baso # (Auto) Seg Neutrophils % Seg Neuts % (Manual) Lymphocytes % (Manual) Nucleated RBC % Seg Neutrophils # Seg Neutrophils # Man Lymphocytes # (Manual) Monocytes # (Manual) PT INR APTT ABG pH POC ABG pO2 ABG pO2 ABG HCO3 ABG O2 Saturation ABG Base Excess ABG Hemoglobin ABG Potassium ABG Chloride ABG Glucose Oxyhemoglobin Sodium Potassium 3.5 L Chloride Carbon Dioxide BUN 47 H Creatinine 3.3 H Glucose 171 H POC Glucose Calcium 8.3 L Phosphorus Magnesium 1.60 L Alkaline Phosphatase Lactate Dehydrogenase Total Creatine Kinase Troponin T C-Reactive Protein Total Protein Albumin LDL Cholesterol Direct HDL Cholesterol Arterial Blood Glucose Arterial Blood Ionized Calcium Urine WBC (Auto) Urine Creatinine Ur Creatinine 24 Hour Urine Total Protein Crossmatch 03/22/20 03/22/20 03/22/20 05:41 12:18 17:29 WBC RBC Hgb Hct MCV MCHC RDW Plt Count Lymph % (Auto) Lymph # (Auto) [place] # (Auto) Baso # (Auto) Seg Neutrophils % Seg Neuts % (Manual) Lymphocytes % (Manual) Nucleated RBC % Seg Neutrophils # Seg Neutrophils # Man Lymphocytes # (Manual) Monocytes # (Manual) PT INR APTT ABG pH POC ABG pO2 ABG pO2 ABG HCO3 ABG O2 Saturation ABG Base Excess ABG Hemoglobin ABG Potassium ABG Chloride ABG Glucose Oxyhemoglobin Sodium Potassium Chloride Carbon Dioxide BUN Creatinine Glucose POC Glucose 183 H 129 H 184 H Calcium Phosphorus Magnesium Alkaline Phosphatase Lactate Dehydrogenase Total Creatine Kinase Troponin T C-Reactive Protein Total Protein Albumin LDL Cholesterol Direct HDL Cholesterol Arterial Blood Glucose Arterial Blood Ionized Calcium Urine WBC (Auto) Urine Creatinine Ur Creatinine 24 Hour Urine Total Protein Crossmatch 03/22/20 03/23/20 03/23/20 19:13 00:22 06:09 WBC RBC Hgb Hct MCV MCHC RDW Plt Count Lymph % (Auto) Lymph # (Auto) [place] # (Auto) Baso # (Auto) Seg Neutrophils % Seg Neuts % (Manual) Lymphocytes % (Manual) Nucleated RBC % Seg Neutrophils # Seg Neutrophils # Man Lymphocytes # (Manual) Monocytes # (Manual) PT INR APTT 91.0 H* ABG pH POC ABG pO2 ABG pO2 ABG HCO3 ABG O2 Saturation ABG Base Excess ABG Hemoglobin ABG Potassium ABG Chloride ABG Glucose Oxyhemoglobin Sodium Potassium Chloride Carbon Dioxide BUN Creatinine Glucose POC Glucose 159 H 166 H Calcium Phosphorus Magnesium Alkaline Phosphatase Lactate Dehydrogenase Total Creatine Kinase Troponin T C-Reactive Protein Total Protein Albumin LDL Cholesterol Direct HDL Cholesterol Arterial Blood Glucose Arterial Blood Ionized Calcium Urine WBC (Auto) Urine Creatinine Ur Creatinine 24 Hour Urine Total Protein Crossmatch 03/23/20 03/23/20 03/23/20 09:35 09:35 09:35 WBC 26.9 H RBC 3.60 L Hgb 10.7 L Hct 32.7 L MCV MCHC RDW 18.9 H Plt Count 98 L Lymph % (Auto) Lymph # (Auto) [place] # (Auto) Baso # (Auto) Seg Neutrophils % Seg Neuts % (Manual) 94.0 H Lymphocytes % (Manual) 2.0 L Nucleated RBC % 1.0 H Seg Neutrophils # Seg Neutrophils # Man 25.3 H Lymphocytes # (Manual) 0.5 L Monocytes # (Manual) PT INR APTT ABG pH POC ABG pO2 ABG pO2 ABG HCO3 ABG O2 Saturation ABG Base Excess ABG Hemoglobin ABG Potassium ABG Chloride ABG Glucose Oxyhemoglobin Sodium Potassium 3.5 L Chloride Carbon Dioxide BUN 61 H Creatinine 3.7 H Glucose 148 H POC Glucose Calcium Phosphorus 4.90 H D Magnesium Alkaline Phosphatase Lactate Dehydrogenase Total Creatine Kinase Troponin T C-Reactive Protein Total Protein Albumin LDL Cholesterol Direct HDL Cholesterol Arterial Blood Glucose Arterial Blood Ionized Calcium Urine WBC (Auto) Urine Creatinine Ur Creatinine 24 Hour Urine Total Protein Crossmatch 03/23/20 03/23/20 03/23/20 09:35 11:56 17:07 WBC RBC Hgb Hct MCV MCHC RDW Plt Count Lymph % (Auto) Lymph # (Auto) [place] # (Auto) Baso # (Auto) Seg Neutrophils % Seg Neuts % (Manual) Lymphocytes % (Manual) Nucleated RBC % Seg Neutrophils # Seg Neutrophils # Man Lymphocytes # (Manual) Monocytes # (Manual) PT INR APTT 115.2 H* 74.5 H* ABG pH POC ABG pO2 ABG pO2 ABG HCO3 ABG O2 Saturation ABG Base Excess ABG Hemoglobin ABG Potassium ABG Chloride ABG Glucose Oxyhemoglobin Sodium Potassium Chloride Carbon Dioxide BUN Creatinine Glucose POC Glucose 159 H Calcium Phosphorus Magnesium Alkaline Phosphatase Lactate Dehydrogenase Total Creatine Kinase Troponin T C-Reactive Protein Total Protein Albumin LDL Cholesterol Direct HDL Cholesterol Arterial Blood Glucose Arterial Blood Ionized Calcium Urine WBC (Auto) Urine Creatinine Ur Creatinine 24 Hour Urine Total Protein Crossmatch 03/23/20 03/23/20 03/23/20 17:34 21:45 22:24 WBC RBC Hgb Hct MCV MCHC RDW Plt Count Lymph % (Auto) Lymph # (Auto) [place] # (Auto) Baso # (Auto) Seg Neutrophils % Seg Neuts % (Manual) Lymphocytes % (Manual) Nucleated RBC % Seg Neutrophils # Seg Neutrophils # Man Lymphocytes # (Manual) Monocytes # (Manual) PT INR APTT 112.5 H* ABG pH POC ABG pO2 ABG pO2 ABG HCO3 ABG O2 Saturation ABG Base Excess ABG Hemoglobin ABG Potassium ABG Chloride ABG Glucose Oxyhemoglobin Sodium Potassium Chloride Carbon Dioxide BUN Creatinine Glucose POC Glucose 217 H 160 H Calcium Phosphorus Magnesium Alkaline Phosphatase Lactate Dehydrogenase Total Creatine Kinase Troponin T C-Reactive Protein Total Protein Albumin LDL Cholesterol Direct HDL Cholesterol Arterial Blood Glucose Arterial Blood Ionized Calcium Urine WBC (Auto) Urine Creatinine Ur Creatinine 24 Hour Urine Total Protein Crossmatch 03/24/20 03/24/20 03/24/20 01:13 05:19 05:19 WBC 28.6 H RBC 3.57 L Hgb 10.7 L Hct 33.3 L MCV MCHC RDW 18.4 H Plt Count 94 L Lymph % (Auto) 4.0 L Lymph # (Auto) 1.1 L [place] # (Auto) 0.9 H Baso # (Auto) Seg Neutrophils % Seg Neuts % (Manual) Lymphocytes % (Manual) Nucleated RBC % Seg Neutrophils # 26.4 H Seg Neutrophils # Man Lymphocytes # (Manual) Monocytes # (Manual) PT INR APTT ABG pH POC ABG pO2 ABG pO2 ABG HCO3 ABG O2 Saturation ABG Base Excess ABG Hemoglobin ABG Potassium ABG Chloride ABG Glucose Oxyhemoglobin Sodium 146 H Potassium 3.5 L Chloride Carbon Dioxide BUN 71 H Creatinine 3.9 H Glucose 141 H POC Glucose 186 H Calcium 8.3 L Phosphorus 5.80 H Magnesium Alkaline Phosphatase Lactate Dehydrogenase Total Creatine Kinase Troponin T C-Reactive Protein Total Protein Albumin LDL Cholesterol Direct HDL Cholesterol Arterial Blood Glucose Arterial Blood Ionized Calcium Urine WBC (Auto) Urine Creatinine Ur Creatinine 24 Hour Urine Total Protein Crossmatch 03/24/20 03/24/20 03/24/20 05:19 06:35 12:24 WBC RBC Hgb Hct MCV MCHC RDW Plt Count Lymph % (Auto) Lymph # (Auto) [place] # (Auto) Baso # (Auto) Seg Neutrophils % Seg Neuts % (Manual) Lymphocytes % (Manual) Nucleated RBC % Seg Neutrophils # Seg Neutrophils # Man Lymphocytes # (Manual) Monocytes # (Manual) PT INR APTT 91.5 H* ABG pH POC ABG pO2 ABG pO2 ABG HCO3 ABG O2 Saturation ABG Base Excess ABG Hemoglobin ABG Potassium ABG Chloride ABG Glucose Oxyhemoglobin Sodium Potassium Chloride Carbon Dioxide BUN Creatinine Glucose POC Glucose 153 H 162 H Calcium Phosphorus Magnesium Alkaline Phosphatase Lactate Dehydrogenase Total Creatine Kinase Troponin T C-Reactive Protein Total Protein Albumin LDL Cholesterol Direct HDL Cholesterol Arterial Blood Glucose Arterial Blood Ionized Calcium Urine WBC (Auto) Urine Creatinine Ur Creatinine 24 Hour Urine Total Protein Crossmatch 03/24/20 03/24/20 03/25/20 19:50 23:56 05:11 WBC RBC Hgb Hct MCV MCHC RDW Plt Count Lymph % (Auto) Lymph # (Auto) [place] # (Auto) Baso # (Auto) Seg Neutrophils % Seg Neuts % (Manual) Lymphocytes % (Manual) Nucleated RBC % Seg Neutrophils # Seg Neutrophils # Man Lymphocytes # (Manual) Monocytes # (Manual) PT INR APTT 75.3 H* ABG pH POC ABG pO2 ABG pO2 ABG HCO3 ABG O2 Saturation ABG Base Excess ABG Hemoglobin ABG Potassium ABG Chloride ABG Glucose Oxyhemoglobin Sodium Potassium Chloride Carbon Dioxide BUN Creatinine Glucose POC Glucose 193 H 139 H Calcium Phosphorus Magnesium Alkaline Phosphatase Lactate Dehydrogenase Total Creatine Kinase Troponin T C-Reactive Protein Total Protein Albumin LDL Cholesterol Direct HDL Cholesterol Arterial Blood Glucose Arterial Blood Ionized Calcium Urine WBC (Auto) Urine Creatinine Ur Creatinine 24 Hour Urine Total Protein Crossmatch 03/25/20 03/25/20 03/25/20 06:25 15:39 15:55 WBC RBC Hgb Hct MCV MCHC RDW Plt Count Lymph % (Auto) Lymph # (Auto) [place] # (Auto) Baso # (Auto) Seg Neutrophils % Seg Neuts % (Manual) Lymphocytes % (Manual) Nucleated RBC % Seg Neutrophils # Seg Neutrophils # Man Lymphocytes # (Manual) Monocytes # (Manual) PT INR APTT 79.3 H* ABG pH POC ABG pO2 ABG pO2 ABG HCO3 ABG O2 Saturation ABG Base Excess ABG Hemoglobin ABG Potassium ABG Chloride ABG Glucose Oxyhemoglobin Sodium Potassium Chloride Carbon Dioxide BUN 54 H Creatinine 3.1 H Glucose 112 H POC Glucose 111 H Calcium 8.3 L Phosphorus 4.90 H Magnesium Alkaline Phosphatase Lactate Dehydrogenase Total Creatine Kinase Troponin T C-Reactive Protein Total Protein Albumin LDL Cholesterol Direct HDL Cholesterol Arterial Blood Glucose Arterial Blood Ionized Calcium Urine WBC (Auto) Urine Creatinine Ur Creatinine 24 Hour Urine Total Protein Crossmatch 03/25/20 03/26/20 03/26/20 23:40 00:32 06:31 WBC RBC Hgb Hct MCV MCHC RDW Plt Count Lymph % (Auto) Lymph # (Auto) [place] # (Auto) Baso # (Auto) Seg Neutrophils % Seg Neuts % (Manual) Lymphocytes % (Manual) Nucleated RBC % Seg Neutrophils # Seg Neutrophils # Man Lymphocytes # (Manual) Monocytes # (Manual) PT INR APTT 83.1 H* ABG pH POC ABG pO2 ABG pO2 ABG HCO3 ABG O2 Saturation ABG Base Excess ABG Hemoglobin ABG Potassium ABG Chloride ABG Glucose Oxyhemoglobin Sodium Potassium 3.2 L Chloride Carbon Dioxide BUN 63 H Creatinine 3.6 H Glucose POC Glucose 115 H Calcium 8.1 L Phosphorus 5.60 H Magnesium Alkaline Phosphatase Lactate Dehydrogenase Total Creatine Kinase Troponin T C-Reactive Protein Total Protein Albumin LDL Cholesterol Direct HDL Cholesterol Arterial Blood Glucose Arterial Blood Ionized Calcium Urine WBC (Auto) Urine Creatinine Ur Creatinine 24 Hour Urine Total Protein Crossmatch 03/26/20 03/26/20 03/26/20 13:23 13:33 14:18 WBC RBC Hgb Hct MCV MCHC RDW Plt Count Lymph % (Auto) Lymph # (Auto) [place] # (Auto) Baso # (Auto) Seg Neutrophils % Seg Neuts % (Manual) Lymphocytes % (Manual) Nucleated RBC % Seg Neutrophils # Seg Neutrophils # Man Lymphocytes # (Manual) Monocytes # (Manual) PT INR APTT 75.5 H* ABG pH POC ABG pO2 ABG pO2 ABG HCO3 ABG O2 Saturation ABG Base Excess ABG Hemoglobin ABG Potassium ABG Chloride ABG Glucose Oxyhemoglobin Sodium Potassium Chloride Carbon Dioxide BUN Creatinine Glucose POC Glucose 107 H Calcium Phosphorus Magnesium Alkaline Phosphatase Lactate Dehydrogenase Total Creatine Kinase Troponin T C-Reactive Protein Total Protein Albumin LDL Cholesterol Direct HDL Cholesterol Arterial Blood Glucose Arterial Blood Ionized Calcium Urine WBC (Auto) Urine Creatinine 63.7 H Ur Creatinine 24 Hour 0.4 L Urine Total Protein Crossmatch 03/27/20 03/27/20 03/27/20 05:26 11:22 12:08 WBC RBC Hgb Hct MCV MCHC RDW Plt Count Lymph % (Auto) Lymph # (Auto) [place] # (Auto) Baso # (Auto) Seg Neutrophils % Seg Neuts % (Manual) Lymphocytes % (Manual) Nucleated RBC % Seg Neutrophils # Seg Neutrophils # Man Lymphocytes # (Manual) Monocytes # (Manual) PT INR APTT ABG pH POC ABG pO2 ABG pO2 ABG HCO3 ABG O2 Saturation ABG Base Excess ABG Hemoglobin ABG Potassium ABG Chloride ABG Glucose Oxyhemoglobin Sodium Potassium Chloride Carbon Dioxide BUN 70 H Creatinine 3.9 H Glucose 67 L POC Glucose 44 L Calcium 8.3 L Phosphorus 6.40 H Magnesium Alkaline Phosphatase Lactate Dehydrogenase 255 H Total Creatine Kinase Troponin T C-Reactive Protein Total Protein Albumin LDL Cholesterol Direct HDL Cholesterol Arterial Blood Glucose Arterial Blood Ionized Calcium Urine WBC (Auto) Urine Creatinine Ur Creatinine 24 Hour Urine Total Protein Crossmatch 03/27/20 03/27/20 03/27/20 12:29 14:31 16:00 WBC RBC Hgb Hct MCV MCHC RDW Plt Count Lymph % (Auto) Lymph # (Auto) [place] # (Auto) Baso # (Auto) Seg Neutrophils % Seg Neuts % (Manual) Lymphocytes % (Manual) Nucleated RBC % Seg Neutrophils # Seg Neutrophils # Man Lymphocytes # (Manual) Monocytes # (Manual) PT INR APTT 74.1 H* ABG pH POC ABG pO2 ABG pO2 ABG HCO3 ABG O2 Saturation ABG Base Excess ABG Hemoglobin ABG Potassium ABG Chloride ABG Glucose Oxyhemoglobin Sodium Potassium Chloride Carbon Dioxide BUN Creatinine Glucose POC Glucose 53 L 132 H Calcium Phosphorus Magnesium Alkaline Phosphatase Lactate Dehydrogenase Total Creatine Kinase Troponin T C-Reactive Protein Total Protein Albumin LDL Cholesterol Direct HDL Cholesterol Arterial Blood Glucose Arterial Blood Ionized Calcium Urine WBC (Auto) Urine Creatinine Ur Creatinine 24 Hour Urine Total Protein Crossmatch 03/27/20 03/27/20 03/27/20 16:00 16:00 17:07 WBC 14.8 H RBC 3.30 L Hgb 10.2 L Hct 30.8 L MCV MCHC RDW 17.6 H Plt Count 101 L Lymph % (Auto) Lymph # (Auto) [place] # (Auto) Baso # (Auto) Seg Neutrophils % Seg Neuts % (Manual) 93.0 H Lymphocytes % (Manual) 4.0 L Nucleated RBC % Seg Neutrophils # Seg Neutrophils # Man 13.8 H Lymphocytes # (Manual) 0.6 L Monocytes # (Manual) PT INR APTT ABG pH POC ABG pO2 ABG pO2 ABG HCO3 ABG O2 Saturation ABG Base Excess ABG Hemoglobin ABG Potassium ABG Chloride ABG Glucose Oxyhemoglobin Sodium Potassium Chloride Carbon Dioxide BUN Creatinine Glucose POC Glucose 154 H Calcium Phosphorus Magnesium Alkaline Phosphatase Lactate Dehydrogenase Total Creatine Kinase Troponin T C-Reactive Protein 3.20 H Total Protein Albumin LDL Cholesterol Direct HDL Cholesterol Arterial Blood Glucose Arterial Blood Ionized Calcium Urine WBC (Auto) Urine Creatinine Ur Creatinine 24 Hour Urine Total Protein Crossmatch 03/27/20 03/28/20 03/28/20 21:38 00:52 05:49 WBC 17.1 H RBC 3.05 L Hgb 9.4 L Hct 28.2 L MCV MCHC RDW 17.0 H Plt Count 98 L Lymph % (Auto) 4.3 L Lymph # (Auto) 0.7 L [place] # (Auto) Baso # (Auto) 0.2 H Seg Neutrophils % 89.8 H Seg Neuts % (Manual) Lymphocytes % (Manual) Nucleated RBC % Seg Neutrophils # 15.4 H Seg Neutrophils # Man Lymphocytes # (Manual) Monocytes # (Manual) PT INR APTT ABG pH POC ABG pO2 ABG pO2 ABG HCO3 ABG O2 Saturation ABG Base Excess ABG Hemoglobin ABG Potassium ABG Chloride ABG Glucose Oxyhemoglobin Sodium Potassium 3.3 L Chloride Carbon Dioxide BUN 52 H Creatinine 3.3 H Glucose POC Glucose 191 H Calcium 8.1 L Phosphorus 6.10 H Magnesium Alkaline Phosphatase Lactate Dehydrogenase Total Creatine Kinase Troponin T C-Reactive Protein Total Protein Albumin LDL Cholesterol Direct HDL Cholesterol Arterial Blood Glucose Arterial Blood Ionized Calcium Urine WBC (Auto) Urine Creatinine Ur Creatinine 24 Hour Urine Total Protein Crossmatch 03/28/20 03/29/20 03/29/20 05:49 00:34 06:26 WBC 17.7 H RBC 3.21 L Hgb 9.8 L Hct 30.6 L MCV 95 H MCHC RDW 17.4 H Plt Count 83 L Lymph % (Auto) 11.7 L Lymph # (Auto) [place] # (Auto) 1.1 H Baso # (Auto) Seg Neutrophils % 80.6 H Seg Neuts % (Manual) Lymphocytes % (Manual) Nucleated RBC % Seg Neutrophils # 14.3 H Seg Neutrophils # Man Lymphocytes # (Manual) Monocytes # (Manual) PT INR APTT 69.2 H* ABG pH POC ABG pO2 ABG pO2 ABG HCO3 ABG O2 Saturation ABG Base Excess ABG Hemoglobin ABG Potassium ABG Chloride ABG Glucose Oxyhemoglobin Sodium Potassium 3.2 L Chloride Carbon Dioxide BUN 57 H Creatinine 3.7 H Glucose POC Glucose Calcium 8.1 L Phosphorus 7.20 H Magnesium Alkaline Phosphatase Lactate Dehydrogenase Total Creatine Kinase Troponin T C-Reactive Protein Total Protein Albumin LDL Cholesterol Direct HDL Cholesterol Arterial Blood Glucose Arterial Blood Ionized Calcium Urine WBC (Auto) Urine Creatinine Ur Creatinine 24 Hour Urine Total Protein Crossmatch 03/29/20 06:26 WBC RBC Hgb Hct MCV MCHC RDW Plt Count Lymph % (Auto) Lymph # (Auto) [place] # (Auto) Baso # (Auto) Seg Neutrophils % Seg Neuts % (Manual) Lymphocytes % (Manual) Nucleated RBC % Seg Neutrophils # Seg Neutrophils # Man Lymphocytes # (Manual) Monocytes # (Manual) PT INR APTT 48.6 H ABG pH POC ABG pO2 ABG pO2 ABG HCO3 ABG O2 Saturation ABG Base Excess ABG Hemoglobin ABG Potassium ABG Chloride ABG Glucose Oxyhemoglobin Sodium Potassium Chloride Carbon Dioxide BUN Creatinine Glucose POC Glucose Calcium Phosphorus Magnesium Alkaline Phosphatase Lactate Dehydrogenase Total Creatine Kinase Troponin T C-Reactive Protein Total Protein Albumin LDL Cholesterol Direct HDL Cholesterol Arterial Blood Glucose Arterial Blood Ionized Calcium Urine WBC (Auto) Urine Creatinine Ur Creatinine 24 Hour Urine Total Protein Crossmatch Allied health notes reviewed: nursing
--- NOTE | 2020-03-29 16:34 | Progress Note ---
Assessment and Plan --Septic shock Due to C. difficile infection, this has resolved --C. difficile infection Continue p.o. vancomycin 250 mg every 6 hours for 14 days ID recommendations appreciated --Anemia OF Chronic Disease Monitor hemoglobin Transfused as needed to hemoglobin 7 --Electrolyte abnormalities-hypokalemia, hypomagnesemia-replete as needed --Recent ESBL E. coli bacteremia patient was discharged on ertapenem 1 g IV daily for 14 days end date supposed to be 03/20/2020 --Acute renal failure likely due to ischemic ATN/ESRD Now on hemodialysis. Nephrology recommendations appreciated Permacath placement still pending. Vascular following --Metabolic Acidosis Resolved. Discontinue sodium bicarb and monitor --Acute hypoxic Respiratory failure. Continue oxygen supplementation --Acute toxic metabolic encephalopathy Resolved --Ruled out COVID-19 --Hypothermia Resolved --Thrombocytopenia Possibly from ongoing infection vs HIT Trend platelets HIT antibody pending Argatroban for now Nephrology oncology on board --Leukocytosis Stress induced - steroids effect vs sepsis vs leukemia? Monitor for now Hematology oncology consulted --PT/OT-back to facility --DVT prophylaxis - Argatroban for now -- Patient is full code Brief History Patient is a 79-year-old male with a past medical history of encephalopathy, hypertension, generalized weakness, diabetes type 2, chronic lipidemia, DVT, respiratory failure with hypoxia, CVA, and CKD presents from retirement with complaint of sepsis with hypotension, alteration mental status. Off note he was treated previously here for ESBL E. coli bacteremia from UTI on 03/02/2020, admitted now due to 24 hours history of generalized weakness and confusion a ssociated with subjective fever. Patient is unable to provide history, currently with lethargy on 3 pressors. Of note ESBL bacteremia was treated with ertapenem 1 g IV once a day for 14 days until 03/20/2020 via PICC line. On arrival, temperature 90, HR 62, RR 16, O2 sat 97, BP 76/33. Initial WBC 32.2. Hemoglobin 8.9. Creatinine 5.9. Urinalysis with 182 WBCs and large leukocyte esterase. 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 03/17: Patient also found to have acute kidney injury with acute tubular necrosis, toxic metabolic encephalopathy, metabolic acidosis and hypothermia. The patient is critically ill with a poor prognosis, sepsis protocol was initia rose with an ICU admission. Patient was seen by twist packer pressors were increased with also bicarb drip started. Unfortunately bicarb drip had to be held due to PICC line compatibility. A new PICC line has been inserted this morning. Admitting physician did speak with the son and discussed prognosis. also called the son this morning who informs me that the brother who is physician is coming into town and will give us further recommendation on arrival. Patient has been started on a third pressor which is epinephrine at this time. To my examination awaiting nephrology evaluation. We will proceed with giving additional 2 L of fluids and also obtain a stat echocardiogram to see what patient's cardiac level is. Based on ejection fraction patient may benefit from dobutamine. Will place BiPAP on standby and if need be and family does not opposed to continued full code we will proceed with likely intubation so the patient can be adequately volume resuscitated. -Continue empiric antibiotic coverage. ID consultation. Critical care assistance and input noted. Fluid Resuscitation As Noted above Continue Diet. Change IV access for triple-lumen PICC line. Will follow cultures. We will also obtain wound care consultation. 03/18: Continue current management, may need dialysis but not a candidate for HD due to 3 Pressors. NO Diarrhea at this time. If not improving respiratory lopez may need Intubation. 03/19: Continue supportive care, mental status showing some improvement, still on BIPAP. BP improving will stop Epi and bring down to 2 pressors. Awaiting ECHO. IF continues to have worsening Renal function, May need transfer to [facility] if unable to perform HD. Patients son updated of current clinically status. 03/20: Right femoral catheter-vas cath Placed for HD. Hypokalemia to be corrected, will give Potassium 20meq. Continue IV abx, no growth so far noted, wean pressors as tolerated, may consider adding Midodrine. WBC trending down. Prior noted Ecoli Bactermia is not noted so far on the blood culture. Continue HD as tolerated, Sodium bicarb drip due to acidosis. 03/21. He has no complaints today. Patient continues to ask when he will be discharged. Labs showed persistent hypokalemia. Continue potassium replacement. Hemoglobin 6.0. Patient will get transfused 1 unit PRBC. 03/22. Hemoglobin stable today. Vascular surgery consulted for femoral line rep lacement 03/23. Patient seen in the BiPAP. Still has diarrhea and is on vancomycin. Afebrile overnight. Labs reviewed 03/24. Patient may need permacath placement on Friday. 24-hour urine collection ordered as per renal. Monitor rectal tube output closely. PT/OT 03/25. Patient seen and evaluated this morning. He has no complaints. Needs to have right femoral line removed permacath placed on Friday. Nephrology recommendations appreciated. 24-hour urine collection yet to commence as per RN. Steroids tapered off. 03/26. Patient seen and examined at bedside this morning. Has no complaints today. Plan is to have permacath placement tomorrow. He will need to have hemodialysis chair arrangement prior to discharge. dry cleaning manager on the case. Hematology consulted for thrombocytopenia and leukocytosis. Patient remains on argatroban but will be held temporarily for procedure. 03/27. 79-year-old male admitted 11 days ago with lethargy and altered mental status. Patient found to have septic shock, started on antibiotics and transferred to the ICU. While in the ICU, patient was on pressors. Patient subsequently had ALEJANDRO which failed to improve with conservative measures for now is on hemodialysis. Patient had a right femoral line placed for hemodialysis at that time. Stay in the ICU was complicated with pressure medication infection patient is currently on vancomycin plan ID is following. Currently improved while in the ICU and was referred to the medical floors. Patient passed a swallow evaluation will started on diet. Patient also have thrombocytopenia and heparin was discontinued. Fondaparinux not possible as patient has renal disease. Patient is currently argatroban. Hematology is consulted as patient has leukocytosis from admission. Need to rule out CML. Although ongoing issues at this time is active C. difficile infection for which the patient is on vancomycin and ID is following, patient is to have permacath placement for hemodialysis and will need hemodialysis chair to be arranged prior to discharge. Patient will be going to a facility when hemodialysis chair has been set up. Patient seen and examined at bedside this morning. Plan to have permacath placement, Called patient's son on the number provided but no answer so I left a voicemail. 03/28: PermCath placement scheduled for tomorrow, continue antibiotic, continue supportive care. Patient would need LTAC/SNF placement. 03/29: Status post PermCath placement today, casework manager consulted for LTAC/SNF placement. Patient also need outpatient dialysis set up. Subjective Date of service: 03/29/20 Principal diagnosis: Acute hypoxemic respiratory failure; Septic shock; Ac. encephalopathy; ALEJANDRO Interval history: Patient seen and examined Denies any shortness of breath or chest pain Discussed with RN at the bedside PermCath placement today Objective - Exam Narrative Exam: GENERAL: well-developed obese -[place] male lying on bed appeared to be in no discomfort. HEENT: Normocephalic. Atraumatic. No conjunctival congestion or icterus. Patient has moist mucous membranes. NECK: Supple. Trachea midline. CHEST/LUNGS: Clear to auscultated bilaterally, breathing nonlabored. No wheezes crackles or rhonchi. HEART/CARDIOVASCULAR: Regular in rate and rhythm. S1 and S2 positive. ABDOMEN: Abdomen is soft, nontender. Patient has normal bowel sounds. MUSCULOSKELETAL: Chronic venous changes bilateral lower ext NEUROLOGIC EXAM: Awake and alert SKIN: Multiple exfoliative rash, multiple pressure ulcers, detail exam as documented in skin assessment Psych: Cooperative. - Constitutional Vitals: Vital Signs - 12hr 03/29/20 03/29/20 03/29/20 08:06 10:10 10:15 Temperature 97.6 F Pulse Rate 74 60 69 Respiratory 60 H Rate Blood Pressure 129/53 130/59 118/58 O2 Sat by Pulse 100 Oximetry O2 Sat by Pulse 96 Oximetry [ Bilateral Throughout] 03/29/20 03/29/20 03/29/20 10:30 10:45 11:00 Temperature Pulse Rate 62 75 60 Respiratory Rate Blood Pressure 120/49 106/45 101/53 O2 Sat by Pulse Oximetry O2 Sat by Pulse Oximetry [ Bilateral Throughout] 03/29/20 03/29/20 03/29/20 11:15 11:30 11:45 Temperature Pulse Rate 64 58 L 64 Respiratory Rate Blood Pressure 92/47 109/53 89/48 O2 Sat by Pulse Oximetry O2 Sat by Pulse Oximetry [ Bilateral Throughout] 03/29/20 03/29/20 03/29/20 12:00 12:15 12:30 Temperature Pulse Rate 66 67 75 Respiratory Rate Blood Pressure 122/52 101/51 96/52 O2 Sat by Pulse Oximetry O2 Sat by Pulse Oximetry [ Bilateral Throughout] 03/29/20 03/29/20 03/29/20 12:45 13:00 13:15 Temperature Pulse Rate 71 68 66 Respiratory Rate Blood Pressure 105/50 118/55 106/55 O2 Sat by Pulse Oximetry O2 Sat by Pulse Oximetry [ Bilateral Throughout] 03/29/20 13:45 Temperature Pulse Rate 70 Respiratory 18 Rate Blood Pressure 136/62 O2 Sat by Pulse Oximetry O2 Sat by Pulse Oximetry [ Bilateral Throughout] - Labs CBC & Chem 7: 03/30/20 00:47 03/31/20 05:28 Labs: Abnormal lab results 03/29/20 03/29/20 03/29/20 Range/Units 00:34 06:26 06:26 WBC 17.7 H (4.5-11.0) K/mm3 RBC 3.21 L (3.65-5.03) M/mm3 Hgb 9.8 L (11.8-15.2) gm/dl Hct 30.6 L (35.5-45.6) % MCV 95 H (84-94) fl RDW 17.4 H (13.2-15.2) % Plt Count 83 L (140-440) K/mm3 Lymph % (Auto) 11.7 L (13.4-35.0) % [place] # (Auto) 1.1 H (0.0-0.8) K/mm3 Seg Neutrophils % 80.6 H (40.0-70.0) % Seg Neutrophils # 14.3 H (1.8-7.7) K/mm3 APTT 48.6 H (24.2-36.6) Sec. Potassium 3.2 L (3.6-5.0) mmol/L BUN 57 H (9-20) mg/dL Creatinine 3.7 H (0.8-1.3) mg/dL Calcium 8.1 L (8.4-10.2) mg/dL Phosphorus 7.20 H (2.5-4.5) mg/dL HEART Score - HEART Score Troponin: Troponin T 0.047 ng/mL (0.00-0.029) H D 03/16/20 22:25
[2020-03-30] MEDS: VANCOMYCIN 250 MG/10 ML ORAL LIQD PO SCH ×4 (00:15→17:22)
[2020-03-30 01:15] LABS: Basophils % (Auto) 0.1 % (0.0-1.8); Eosinophils # (Auto) 0.2 K/mm3 (0.0-0.4); Eosinophils % (Auto) 1.7 % (0.0-4.3); Hematocrit 24.9 % (35.5-45.6); Hemoglobin 8.1 gm/dl (11.8-15.2); Lymphocytes # (Auto) 0.8 K/mm3 (1.2-5.4); Lymphocytes % (Auto) 7.5 % (13.4-35.0); Mean Corpuscular HGB Conc 33 % (32-34); Mean Corpuscular Volume 96 fl (84-94); Monocytes # (Auto) 0.6 K/mm3 (0.0-0.8); Monocytes % (Auto) 5.9 % (0.0-7.3); Red Cell Distribution Width 17.6 % (13.2-15.2)
[2020-03-30 01:33] LABS: Platelet Count 76 K/mm3 (140-440)
[2020-03-30 06:12] LABS: Calcium 7.6 mg/dL (8.4-10.2)
[2020-03-30] MEDS: MIDODRINE 5 MG TAB PO SCH ×3 (08:00→16:00)
[2020-03-30] MEDS: POTASSIUM CHLORIDE ER 20 MEQ TAB PO SCH ×2 (08:00→10:00)
--- NOTE | 2020-03-30 09:11 | Progress Note ---
Assessment and Plan Acute renal failure likely due to ischemic ATN Metabolic encphalopathy Metabolic acidosis Sepsis due to UTI UTI S/P Hypokalemia Anemia Plan: no indication for HD today K is being replaced 24 hr urine creatinine clearance results- GFR 10 ml/min S/P removal of vasc cath and placement of right IJ Perm-cath placement on 03/29/20 Epogen with HD for anemia Renally dose medications Strict I&O monitoring Obtain daily weights Monitor renal function closely ID evaluated pt, on Abx Patient accepted to [facility] Subjective Date of service: 03/30/20 Principal diagnosis: Acute hypoxemic respiratory failure; Septic shock; Ac. encephalopathy; ALEJANDRO Interval history: tolerated HD yesterday Objective - Vital Signs Vital signs: Vital Signs - 12hr 03/29/20 03/29/20 03/30/20 22:00 23:47 05:18 Temperature 97.6 F 98.6 F Pulse Rate 74 80 Respiratory 22 20 22 Rate Blood Pressure 129/54 Blood Pressure 130/50 [Right] O2 Sat by Pulse 100 99 100 Oximetry 03/30/20 08:29 Temperature 99.0 F Pulse Rate 79 Respiratory 20 Rate Blood Pressure 126/46 Blood Pressure [Right] O2 Sat by Pulse 100 Oximetry - Lab 03/30/20 00:47 03/30/20 05:39 Most recent lab results ABG pH 7.378 pH Units (7.350-7.450) 03/20/20 16:35 ABG pCO2 38.6 mm Hg 03/20/20 16:35 ABG pO2 63.9 mm Hg (80.0-90.0) L 03/20/20 16:35 ABG HCO3 22.2 mmol/L (20.0-26.0) 03/20/20 16:35 ABG O2 Saturation 90.9 % (95.0-99.0) L 03/20/20 16:35 Calcium 7.6 mg/dL (8.4-10.2) L 03/30/20 05:39 Phosphorus 7.20 mg/dL (2.5-4.5) H 03/29/20 06:26 Magnesium 1.80 mg/dL (1.7-2.3) 03/24/20 05:19 Urine Creatinine 63.7 mg/dL (0.1-20.0) H 03/26/20 14:18 Urine Sodium 53 mmol/L 03/17/20 Unknown Urine Total Protein 328 mg/dL (5-11.8) H 03/17/20 Unknown Medications & Allergies - Medications Allergies/Adverse Reactions: Allergies diclofenac [Diclofenac] Allergy (Verified 10/05/18 08:11) Rash Home Medications: Home Medications Medication Instructions Recorded Confirmed Last Taken Type Acetaminophen [Acetaminophen TAB] 650 mg PO Q4H PRN #1 tablet 02/28/17 03/19/20 Unknown Rx Aspirin [Aspirin BABY CHEW TAB] 81 mg PO DAILY #1 tab.chew 02/28/17 03/19/20 Unknown Rx Ferrous Sulfate [Feosol 325 MG tab] 325 mg PO QDAY #1 tablet 02/28/17 03/19/20 Unknown Rx Gabapentin 300 mg PO Q8HR #1 capsule 02/28/17 03/19/20 Unknown Rx Ondansetron [Zofran INJ] 4 mg IV Q8H PRN #1 vial 02/28/17 03/19/20 Unknown Rx amLODIPine 10 mg PO DAILY #1 tablet 02/28/17 03/19/20 Unknown Rx Ertapenem [INVanz] 1 gm IV QDAY vial 03/10/20 03/19/20 Unknown Rx Active Medications: Generic Name Dose Route Start Last Admin Trade Name Freq PRN Reason Stop Dose Admin Acetaminophen 650 mg 03/19/20 18:21 03/19/20 18:39 Tylenol FEEDTUBE 650 mg Q6H PRN Administration Pain, Mild (1-3) Albuterol 2.5 mg 03/16/20 17:00 Proventil IH Q3HRT PRN Shortness Of Breath Lipase/Protease/Amylase 1 each 03/17/20 17:12 Pancrescooby Granger 10,500 Unit FEEDTUBE PRN PRN For Clogged Feeding Tube Dextrose 50 ml 03/27/20 12:23 D50w (25gm) Syringe IV Q30MIN PRN Hypoglycemia Protocol Epoetin Colin 10,000 unit 03/24/20 17:00 Procrit IV DAYLIN IDRIS Famotidine 20 mg 03/28/20 10:00 03/29/20 09:43 Pepcid PO Not Given DAILY IDRIS Heparin Sodium (Porcine) 5,000 unit 03/28/20 10:00 03/29/20 22:17 Heparin SUB-Q 5,000 unit Q12HR IDRIS Administration Hydromorphone HCl 0.25 mg 03/16/20 17:30 Dilaudid IV Q4H PRN Pain, Moderate (4-6) Hydrophilic Ointment 1 applic 03/21/20 07:50 03/21/20 16:38 Aquaphor TP 1 applic Q12HR PRN Administration DRY SKIN Sodium Chloride 100 mls @ 999 mls/hr 03/26/20 16:20 Nacl 0.9% IV DAYLIN PRN Hypotension Insulin Glargine 6 units 03/27/20 22:00 Lantus SUB-Q QHS IDRIS Insulin Human Lispro 0 unit 03/27/20 22:00 03/29/20 22:17 Humalog SUB-Q 3 unit ACHS IDRIS Administration Protocol Methylprednisolone Sodium Succinate 20 mg 03/27/20 12:00 03/29/20 09:43 Solu-Medrol IV 03/30/20 11:59 Not Given Q24HR IDRIS Midodrine 10 mg 03/20/20 12:00 03/29/20 18:52 Proamatine PO 10 mg TID@0800,1200,1600 IDRIS Administration Potassium Chloride 40 meq 03/30/20 08:00 K-Dur PO 03/30/20 10:01 Q4HR IDRIS Simple Syrup 15 ml 03/17/20 17:12 Simple Syrup FEEDTUBE PRN PRN Hypoglycemia Simple Syrup 30 ml 03/17/20 17:12 Simple Syrup FEEDTUBE PRN PRN Hypoglycemia Sodium Bicarbonate 325 mg 03/17/20 17:12 Sodium Bicarbonate FEEDTUBE PRN PRN For Clogged Feeding Tube Sodium Chloride 10 ml 03/16/20 22:00 03/29/20 22:18 Sodium Chloride Flush Syringe 10 Ml IV 10 ml BID IDRIS Administration Sodium Chloride 10 ml 03/16/20 17:00 Sodium Chloride Flush Syringe 10 Ml IV PRN PRN LINE FLUSH Vancomycin HCl 250 mg 03/20/20 12:00 03/30/20 06:29 Vancomycin Po PO 04/03/20 06:01 250 mg Q6HR IDRIS Administration
[2020-03-30] MEDS: FAMOTIDINE 20 MG TAB PO SCH (09:53)
[2020-03-30] MEDS: methylPREDNISolone Sod Succinate 40 MG/1 ML INJ IV SCH (09:54)
[2020-03-30] MEDS: INSULIN LISPRO 100 UNIT/ML VIAL 3 mL SUB-Q SCH ×4 (09:56→22:33)
[2020-03-30] MEDS: HEPARIN 5,000 UNIT/1 ML VIAL SUB-Q SCH ×2 (09:56→22:16)
--- NOTE | 2020-03-30 22:57 | Progress Note ---
Assessment and Plan --Septic shock Due to C. difficile infection, this has resolved --C. difficile infection Continue p.o. vancomycin 250 mg every 6 hours for 14 days ID recommendations appreciated --Anemia OF Chronic Disease Monitor hemoglobin Transfused as needed to hemoglobin 7 --Electrolyte abnormalities-hypokalemia, hypomagnesemia-replete as needed --Recent ESBL E. coli bacteremia patient was discharged on ertapenem 1 g IV daily for 14 days end date supposed to be 03/20/2020 --Acute renal failure likely due to ischemic ATN/ESRD Now on hemodialysis. Nephrology recommendations appreciated Permacath placement still pending. Vascular following --Metabolic Acidosis Resolved. Discontinue sodium bicarb and monitor --Acute hypoxic Respiratory failure. Continue oxygen supplementation --Acute toxic metabolic encephalopathy Resolved --Ruled out COVID-19 --Hypothermia Resolved --Thrombocytopenia Possibly from ongoing infection vs HIT Trend platelets HIT antibody pending Argatroban for now Nephrology oncology on board --Leukocytosis Stress induced - steroids effect vs sepsis vs leukemia? Monitor for now Hematology oncology consulted --PT/OT-back to facility --DVT prophylaxis - Argatroban for now -- Patient is full code Brief History Patient is a 79-year-old male with a past medical history of encephalopathy, hypertension, generalized weakness, diabetes type 2, chronic lipidemia, DVT, respiratory failure with hypoxia, CVA, and CKD presents from shelter with complaint of sepsis with hypotension, alteration mental status. Off note he was treated previously here for ESBL E. coli bacteremia from UTI on 03/02/2020, admitted now due to 24 hours history of generalized weakness and confusion a ssociated with subjective fever. Patient is unable to provide history, currently with lethargy on 3 pressors. Of note ESBL bacteremia was treated with ertapenem 1 g IV once a day for 14 days until 03/20/2020 via PICC line. On arrival, temperature 90, HR 62, RR 16, O2 sat 97, BP 76/33. Initial WBC 32.2. Hemoglobin 8.9. Creatinine 5.9. Urinalysis with 182 WBCs and large leukocyte esterase. 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 03/17: Patient also found to have acute kidney injury with acute tubular necrosis, toxic metabolic encephalopathy, metabolic acidosis and hypothermia. The patient is critically ill with a poor prognosis, sepsis protocol was initia rose with an ICU admission. Patient was seen by [facility] former pressors were increased with also bicarb drip started. Unfortunately bicarb drip had to be held due to PICC line compatibility. A new PICC line has been inserted this morning. Admitting physician did speak with the son and discussed prognosis. also called the son this morning who informs me that the brother who is physician is coming into town and will give us further recommendation on arrival. Patient has been started on a third pressor which is epinephrine at this time. To my examination awaiting nephrology evaluation. We will proceed with giving additional 2 L of fluids and also obtain a stat echocardiogram to see what patient's cardiac level is. Based on ejection fraction patient may benefit from dobutamine. Will place BiPAP on standby and if need be and family does not opposed to continued full code we will proceed with likely intubation so the patient can be adequately volume resuscitated. -Continue empiric antibiotic coverage. ID consultation. Critical care assistance and input noted. Fluid Resuscitation As Noted above Continue Diet. Change IV access for triple-lumen PICC line. Will follow cultures. We will also obtain wound care consultation. 03/18: Continue current management, may need dialysis but not a candidate for HD due to 3 Pressors. NO Diarrhea at this time. If not improving respiratory lopez may need Intubation. 03/19: Continue supportive care, mental status showing some improvement, still on BIPAP. BP improving will stop Epi and bring down to 2 pressors. Awaiting ECHO. IF continues to have worsening Renal function, May need transfer to CR[facility] if unable to perform HD. Patients son updated of current clinically status. 03/20: Right femoral catheter-vas cath Placed for HD. Hypokalemia to be corrected, will give Potassium 20meq. Continue IV abx, no growth so far noted, wean pressors as tolerated, may consider adding Midodrine. WBC trending down. Prior noted Ecoli Bactermia is not noted so far on the blood culture. Continue HD as tolerated, Sodium bicarb drip due to acidosis. 03/21. He has no complaints today. Patient continues to ask when he will be discharged. Labs showed persistent hypokalemia. Continue potassium replacement. Hemoglobin 6.0. Patient will get transfused 1 unit PRBC. 03/22. Hemoglobin stable today. Vascular surgery consulted for femoral line rep lacement 03/23. Patient seen in the BiPAP. Still has diarrhea and is on vancomycin. Afebrile overnight. Labs reviewed 03/24. Patient may need permacath placement on Friday. 24-hour urine collection ordered as per renal. Monitor rectal tube output closely. PT/OT 03/25. Patient seen and evaluated this morning. He has no complaints. Needs to have right femoral line removed permacath placed on Friday. Nephrology recommendations appreciated. 24-hour urine collection yet to commence as per RN. Steroids tapered off. 03/26. Patient seen and examined at bedside this morning. Has no complaints today. Plan is to have permacath placement tomorrow. He will need to have hemodialysis chair arrangement prior to discharge. materials manager on the case. Hematology consulted for thrombocytopenia and leukocytosis. Patient remains on argatroban but will be held temporarily for procedure. 03/27. 79-year-old male admitted 11 days ago with lethargy and altered mental status. Patient found to have septic shock, started on antibiotics and transferred to the ICU. While in the ICU, patient was on pressors. Patient subsequently had ALEJANDRO which failed to improve with conservative measures for now is on hemodialysis. Patient had a right femoral line placed for hemodialysis at that time. Stay in the ICU was complicated with pressure medication infection patient is currently on vancomycin plan ID is following. Currently improved while in the ICU and was referred to the medical floors. Patient passed a swallow evaluation will started on diet. Patient also have thrombocytopenia and heparin was discontinued. Fondaparinux not possible as patient has renal disease. Patient is currently argatroban. Hematology is consulted as patient has leukocytosis from admission. Need to rule out CML. Although ongoing issues at this time is active C. difficile infection for which the patient is on vancomycin and ID is following, patient is to have permacath placement for hemodialysis and will need hemodialysis chair to be arranged prior to discharge. Patient will be going to a facility when hemodialysis chair has been set up. Patient seen and examined at bedside this morning. Plan to have permacath placement, Called patient's son on the number provided but no answer so I left a voicemail. 03/28: PermCath placement scheduled for tomorrow, continue antibiotic, continue supportive care. Patient would need LTAC/SNF placement. 03/29: Status post PermCath placement today, catalytic case operator consulted for LTAC/SNF placement. Patient also need outpatient dialysis set up. 03/30: Continue ABX per ID, replete electrolytes. Potassium level 2.7 today. Dialysis as scheduled, pending placement and outpatient dialysis set up Subjective Date of service: 03/30/20 Principal diagnosis: Acute hypoxemic respiratory failure; Septic shock; Ac. encephalopathy; ALEJANDRO Interval history: Patient seen and examined Denies any shortness of breath or chest pain Discussed with RN at the bedside Continue to have loose stool, patient on rectal tube Objective - Exam Narrative Exam: GENERAL: well-developed obese -[place] male lying on bed appeared to be in no discomfort. HEENT: Normocephalic. Atraumatic. No conjunctival congestion or icterus. Patient has moist mucous membranes. NECK: Supple. Trachea midline. CHEST/LUNGS: Clear to auscultated bilaterally, breathing nonlabored. No wheezes crackles or rhonchi. HEART/CARDIOVASCULAR: Regular in rate and rhythm. S1 and S2 positive. ABDOMEN: Abdomen is soft, nontender. Patient has normal bowel sounds. MUSCULOSKELETAL: Chronic venous changes bilateral lower ext NEUROLOGIC EXAM: Awake and alert SKIN: Multiple exfoliative rash, multiple pressure ulcers, detail exam as do cumented in skin assessment Psych: Cooperative. - Constitutional Vitals: Vital Signs - 12hr 03/30/20 03/30/20 03/30/20 11:16 12:00 16:16 Temperature 98.6 F Pulse Rate 84 78 Respiratory 20 Rate Blood Pressure 112/45 O2 Sat by Pulse 96 95 Oximetry 03/30/20 20:08 Temperature 98.8 F Pulse Rate 82 Respiratory 20 Rate Blood Pressure 127/54 O2 Sat by Pulse 93 Oximetry - Labs CBC & Chem 7: 03/30/20 00:47 03/31/20 05:28 Labs: Abnormal lab results 03/30/20 03/30/20 03/30/20 Range/Units 00:47 05:39 12:01 RBC 2.60 L (3.65-5.03) M/mm3 Hgb 8.1 L (11.8-15.2) gm/dl Hct 24.9 L (35.5-45.6) % MCV 96 H (84-94) fl RDW 17.6 H (13.2-15.2) % Plt Count 76 L (140-440) K/mm3 Lymph % (Auto) 7.5 L (13.4-35.0) % Lymph # (Auto) 0.8 L (1.2-5.4) K/mm3 Seg Neutrophils % 84.8 H (40.0-70.0) % Seg Neutrophils # 9.1 H (1.8-7.7) K/mm3 Potassium 2.7 L* (3.6-5.0) mmol/L BUN 33 H (9-20) mg/dL Creatinine 2.8 H (0.8-1.3) mg/dL POC Glucose 163 H (70-105) mg/dL Calcium 7.6 L (8.4-10.2) mg/dL 03/30/20 03/30/20 03/30/20 Range/Units 17:27 21:21 22:49 RBC (3.65-5.03) M/mm3 Hgb (11.8-15.2) gm/dl Hct (35.5-45.6) % MCV (84-94) fl RDW (13.2-15.2) % Plt Count (140-440) K/mm3 Lymph % (Auto) (13.4-35.0) % Lymph # (Auto) (1.2-5.4) K/mm3 Seg Neutrophils % (40.0-70.0) % Seg Neutrophils # (1.8-7.7) K/mm3 Potassium (3.6-5.0) mmol/L BUN (9-20) mg/dL Creatinine (0.8-1.3) mg/dL POC Glucose 137 H 327 H 231 H (70-105) mg/dL Calcium (8.4-10.2) mg/dL HEART Score - HEART Score Troponin: Troponin T 0.047 ng/mL (0.00-0.029) H D 03/16/20 22:25
[2020-03-31] MEDS: VANCOMYCIN 250 MG/10 ML ORAL LIQD PO SCH ×5 (00:15→23:12)
[2020-03-31 06:18] LABS: Calcium 7.8 mg/dL (8.4-10.2)
[2020-03-31] MEDS: INSULIN LISPRO 100 UNIT/ML VIAL 3 mL SUB-Q SCH ×4 (09:02→22:50)
[2020-03-31] MEDS: HEPARIN 5,000 UNIT/1 ML VIAL SUB-Q SCH ×2 (09:03→22:50)
[2020-03-31] MEDS: FAMOTIDINE 20 MG TAB PO SCH (09:03)
[2020-03-31] MEDS: MIDODRINE 5 MG TAB PO SCH ×3 (09:03→16:13)
[2020-03-31] MEDS: POTASSIUM CHLORIDE ER 20 MEQ TAB PO SCH ×4 (09:03→22:50)
--- NOTE | 2020-03-31 10:00 | Progress Note ---
Assessment and Plan Cultures: Blood cultures 03/16/2020 no growth today Assessment: 79 years old male with history of hypertension, diabetes mellitus, chronic kidney disease, previous CVA, chronic leg lymphedema, residential res ident, known to our service due to previous ESBL E. coli bacteremia from UTI on 03/02/2020, admitted on due to 24 hours history of generalized weakness and confusion associated with subjective fever: #Severe sepsis with septic shock: Persistent leukocytosis resolved. Source genia soni severe Cdiff #Severe C diff colitis: was on ertapenem for 2 weeks #Recent ESBL E. coli bacteremia patient was discharged on ertapenem 1 g IV daily for 14 days end date supposed to be 03/20/2020 #Acute encephalopathy: Likely secondary to sepsis/uremia, resolved. #Acute on chronic kidney failure #Bilateral leg lymphedema with chronic skin changes #Exfoliative rash: ? Drug allergy, seems improving #Thrombocytopenia/anemia. Heme-onc and IMS Recommendations: - Continue vancomycin 250 mg PO 4 times daily total 14 days - Monitor off antibiotics - Avoid broad-spectrum antibiotics - Remove rectal tube if minimal output Will sign off Ivette Zamudio MD Infectious Diseases Vocational Nursing Instructor [facility] M [phone] O [phone] Subjective Date of service: 03/31/20 Principal diagnosis: Acute hypoxemic respiratory failure; Septic shock; Ac. encephalopathy; ALEJANDRO Interval history: Patient is feeling better, no complaints, rectal tube with diarrhea minimal Objective - Exam Narrative Exam: General appearance: Alert in no acute distress Eyes: anicteric sclerae, moist conjunctivae; no lid-lag; PERRLA lid edema HENT: Normocephalic, Atraumatic; normal external ears, nares open, oropharynx limited Neck: supple, tracheal midline, no JVD Lungs: Diminished breath sounds bilaterally CV: RRR no murmur Abdomen: Soft, obese, distended Extremities: Extensive bilateral leg edema, chronic skin changes Skin: Extensive skin desquamation Psych: Alert Neuro: Alert Rectal tube with diarrhea Midline - Constitutional Vitals: Vital Signs Temp Pulse Resp BP Pulse Ox 98.5 F 70 20 164/72 98 03/31/20 08:20 03/31/20 08:21 03/31/20 08:20 03/31/20 08:20 03/31/20 08:21 Temperature -Last 24 Hours Temperature 98.5 F Temperature 98.3 F Temperature 98.5 F Temperature 98.8 F Temperature 98.6 F - Labs CBC & Chem 7: 03/30/20 00:47 03/31/20 05:28 Labs: Abnormal lab results 03/30/20 03/30/20 03/30/20 Range/Units 12:01 17:27 21:21 Potassium (3.6-5.0) mmol/L Chloride (98-107) mmol/L BUN (9-20) mg/dL Creatinine (0.8-1.3) mg/dL Glucose (75-100) mg/dL POC Glucose 163 H 137 H 327 H (70-105) mg/dL Calcium (8.4-10.2) mg/dL 03/30/20 03/31/20 03/31/20 Range/Units 22:49 05:28 08:35 Potassium 2.9 L* (3.6-5.0) mmol/L Chloride 108.1 H (98-107) mmol/L BUN 40 H (9-20) mg/dL Creatinine 3.2 H (0.8-1.3) mg/dL Glucose 151 H (75-100) mg/dL POC Glucose 231 H 191 H (70-105) mg/dL Calcium 7.8 L (8.4-10.2) mg/dL
--- NOTE | 2020-03-31 12:27 | Progress Note ---
Assessment and Plan Acute renal failure likely due to ischemic ATN Metabolic encphalopathy Metabolic acidosis Sepsis due to UTI UTI S/P Hypokalemia Anemia Plan: cont to hold dialysis, UOP is improving will recheck creatinine clearance KCl 20 meq BID ordered S/P removal of vasc cath and placement of right IJ Perm-cath placement on 03/29/20 Epogen with HD for anemia Renally dose medications Strict I&O monitoring Obtain daily weights Monitor renal function closely ID evaluated pt, on Abx Subjective Date of service: 03/31/20 Principal diagnosis: Acute hypoxemic respiratory failure; Septic shock; Ac. encephalopathy; ALEJANDRO Interval history: no overnight events, answers simple questions Objective - Vital Signs Vital signs: Vital Signs - 12hr 03/31/20 03/31/20 03/31/20 04:33 08:20 08:21 Temperature 98.3 F 98.5 F Pulse Rate 66 67 70 Respiratory 18 20 Rate Blood Pressure 145/67 164/72 O2 Sat by Pulse 100 96 98 Oximetry - Lab 03/30/20 00:47 03/31/20 05:28 Most recent lab results ABG pH 7.378 pH Units (7.350-7.450) 03/20/20 16:35 ABG pCO2 38.6 mm Hg 03/20/20 16:35 ABG pO2 63.9 mm Hg (80.0-90.0) L 03/20/20 16:35 ABG HCO3 22.2 mmol/L (20.0-26.0) 03/20/20 16:35 ABG O2 Saturation 90.9 % (95.0-99.0) L 03/20/20 16:35 Calcium 7.8 mg/dL (8.4-10.2) L 03/31/20 05:28 Phosphorus 7.20 mg/dL (2.5-4.5) H 03/29/20 06:26 Magnesium 1.80 mg/dL (1.7-2.3) 03/24/20 05:19 Urine Creatinine 63.7 mg/dL (0.1-20.0) H 03/26/20 14:18 Urine Sodium 53 mmol/L 03/17/20 Unknown Urine Total Protein 328 mg/dL (5-11.8) H 03/17/20 Unknown Medications & Allergies - Medications Allergies/Adverse Reactions: Allergies diclofenac [Diclofenac] Allergy (Verified 10/05/18 08:11) Rash Home Medications: Home Medications Medication Instructions Recorded Confirmed Last Taken Type Acetaminophen [Acetaminophen TAB] 650 mg PO Q4H PRN #1 tablet 02/28/17 03/19/20 Unknown Rx Aspirin [Aspirin BABY CHEW TAB] 81 mg PO DAILY #1 tab.chew 02/28/17 03/19/20 Unknown Rx Ferrous Sulfate [Feosol 325 MG tab] 325 mg PO QDAY #1 tablet 02/28/17 03/19/20 Unknown Rx Gabapentin 300 mg PO Q8HR #1 capsule 02/28/17 03/19/20 Unknown Rx Ondansetron [Zofran INJ] 4 mg IV Q8H PRN #1 vial 02/28/17 03/19/20 Unknown Rx amLODIPine 10 mg PO DAILY #1 tablet 02/28/17 03/19/20 Unknown Rx Ertapenem [INVanz] 1 gm IV QDAY vial 03/10/20 03/19/20 Unknown Rx Active Medications: Generic Name Dose Route Start Last Admin Trade Name Freq PRN Reason Stop Dose Admin Acetaminophen 650 mg 03/19/20 18:21 03/19/20 18:39 Tylenol FEEDTUBE 650 mg Q6H PRN Administration Pain, Mild (1-3) Albuterol 2.5 mg 03/16/20 17:00 Proventil IH Q3HRT PRN Shortness Of Breath Lipase/Protease/Amylase 1 each 03/17/20 17:12 Pancreazanitha Granger 10,500 Unit FEEDTUBE PRN PRN For Clogged Feeding Tube Dextrose 50 ml 03/27/20 12:23 D50w (25gm) Syringe IV Q30MIN PRN Hypoglycemia Protocol Epoetin Colin 10,000 unit 03/24/20 17:00 Procrit IV DAYLIN IDRIS Famotidine 20 mg 03/28/20 10:00 03/31/20 09:03 Pepcid PO 20 mg DAILY IDRIS Administration Heparin Sodium (Porcine) 5,000 unit 03/28/20 10:00 03/31/20 09:03 Heparin SUB-Q 5,000 unit Q12HR IDRIS Administration Hydromorphone HCl 0.25 mg 03/16/20 17:30 Dilaudid IV Q4H PRN Pain, Moderate (4-6) Hydrophilic Ointment 1 applic 03/21/20 07:50 03/21/20 16:38 Aquaphor TP 1 applic Q12HR PRN Administration DRY SKIN Sodium Chloride 100 mls @ 999 mls/hr 03/26/20 16:20 Nacl 0.9% IV DAYLIN PRN Hypotension Insulin Glargine 6 units 03/27/20 22:00 Lantus SUB-Q QHS IDRIS Insulin Human Lispro 0 unit 03/27/20 22:00 03/31/20 09:02 Humalog SUB-Q 3 unit ACHS IDRIS Administration Protocol Midodrine 10 mg 03/20/20 12:00 03/31/20 09:03 Proamatine PO 10 mg TID@0800,1200,1600 IDRIS Administration Potassium Chloride 20 meq 03/31/20 13:00 K-Dur PO BID IDRIS Simple Syrup 15 ml 03/17/20 17:12 Simple Syrup FEEDTUBE PRN PRN Hypoglycemia Simple Syrup 30 ml 03/17/20 17:12 Simple Syrup FEEDTUBE PRN PRN Hypoglycemia Sodium Bicarbonate 325 mg 03/17/20 17:12 Sodium Bicarbonate FEEDTUBE PRN PRN For Clogged Feeding Tube Sodium Chloride 10 ml 03/16/20 22:00 03/31/20 09:04 Sodium Chloride Flush Syringe 10 Ml IV 10 ml BID IDRIS Administration Sodium Chloride 10 ml 03/16/20 17:00 Sodium Chloride Flush Syringe 10 Ml IV PRN PRN LINE FLUSH Vancomycin HCl 250 mg 03/20/20 12:00 03/31/20 06:41 Vancomycin Po PO 04/03/20 06:01 250 mg Q6HR IDRIS Administration
[2020-03-31] MEDS: POTASSIUM CHLORIDE 10 MEQ 10 MEQ/100 ML BAG IV SCH ×3 (14:49→17:43)
--- NOTE | 2020-03-31 15:56 | Progress Note ---
Assessment and Plan Acute hypoxemic respiratory failure Septic shock Pulmonary HTN Acute Toxic metabolic encephalopathy Acute kidney injury (ALEJANDRO) with acute tubular necrosis (ATN) PUI COVID-19 Sacral decubitus ulcer h/o VTE Hypothermia Obesity Adult FTT - wean supplemental oxygen for target O2 sat's > 90% acutely - prn CXR' & ABG's at this point - prn analgesia per pain score - BIPAP scheduled qhs with prn daytime use - continue HD/UF per nephrology for toxin and volume clearance - continue care as below otherwise; - 2D ECHO shows pulm HTN with septal flattening (outpatient w/up) - continue aspiration precautions (HOB >/= 40 degrees) - conservative fluid strategies henceforth - complete antiinfective's per ID rec's (IV vanc stopped) - accuchecks with glycemic control per SSI for target blood glucose of < 180 mg/dL; avoid hypoglycemia - bronchodilators with pulmonary hygiene per RT - avoid nephrotoxins, renally dose all medications - avoid benzodiazepine's, reduce the possibility of delirium - Maintenance of sleep-wake cycle, avoid delirium - G.I. & VTE prophylaxis - PT/OT/ROM exercises - continue mobility protocols for pressure ulcer prophylaxis - Monitor hemodynamics closely - continue other care per attending / other consultants - discharge planning ongoing concurrently .... Re-evaluate in am & prn CONDITION: FAIR PROGNOSIS: GUARDED CODE STATUS: FULL CODE Subjective Date of service: 03/31/20 Principal diagnosis: Acute hypoxemic respiratory failure; Septic shock; Ac. encephalopathy; ALEJANDRO Interval history: Patient is seen today for: Acute hypoxemic respiratory failure; Septic shock; Acute Toxic metabolic encephalopathy; ALEJANDRO; PUI COVID-19; Sacral decubitus ulcer; h/o VTE; Hypothermia; Obesity; Adult FTT Seen and examined at bedside; 24hour events reviewed; nursing and respiratory care staff consulted; no adverse overnight events reported to me; resting peacefully in bed; complains of left shoulder pain; denies trauma; no chest pain; No N/V Objective Vital Signs - 12hr 03/31/20 03/31/20 03/31/20 04:33 08:20 08:21 Temperature 98.3 F 98.5 F Pulse Rate 66 67 70 Respiratory 18 20 Rate Blood Pressure 145/67 164/72 O2 Sat by Pulse 100 96 98 Oximetry Constitutional: alert, appears uncomfortable, other (elderly obese male with normal respiratory effort at rest) Eyes: non-icteric ENT: oropharynx dry Neck: supple, no JVD, other (large neck circumference) Effort: mildly labored Ascultation: Bilateral: clear, diminished breath sounds Percussion: Bilateral: not dull Cardiovascular: regular rate and rhythm Gastrointestinal: normoactive bowel sounds, soft, non-tender, non-distended (protuberant) Integumentary: rash (Generalized skin flaking/with superficial skin sloughing without erythema or warmth on chest wall), decubitus ulcer (see RN/WCN notes for details) Extremities: no cyanosis, pulses normal, no ischemia or petechiae, other (Patient has stasis dermatitis and wounds on both legs.) Neurologic: non-focal exam (grossly), pupils equal and round, CN II-XII normal Psychiatric: anxious CBC and BMP: 03/30/20 00:47 03/31/20 05:28 ABG, PT/INR, D-dimer: ABG ABG pH 7.378 pH Units (7.350-7.450) 03/20/20 16:35 POC ABG pCO2 37.3 mmHg (32.0-48.0) 03/18/20 12:14 ABG pCO2 38.6 mm Hg 03/20/20 16:35 POC ABG pO2 67.4 mmHg (83-108) L 03/18/20 12:14 ABG pO2 63.9 mm Hg (80.0-90.0) L 03/20/20 16:35 POC ABG HCO3 14.1 03/18/20 12:14 ABG O2 Saturation 90.9 % (95.0-99.0) L 03/20/20 16:35 PT/INR, D-dimer PT 14.3 Sec. (12.2-14.9) 03/22/20 16:30 INR 1.09 (0.87-1.13) 03/22/20 16:30 Abnormal lab findings: Abnormal Labs 03/16/20 03/16/20 03/16/20 14:22 14:22 14:23 WBC 32.2 H RBC 2.93 L Hgb 8.9 L Hct 28.2 L MCV 96 H MCHC RDW 18.1 H Plt Count Lymph % (Auto) Lymph # (Auto) [place] # (Auto) Baso # (Auto) Seg Neutrophils % Seg Neuts % (Manual) 82.0 H Lymphocytes % (Manual) 10.0 L Nucleated RBC % 3.0 H Seg Neutrophils # Seg Neutrophils # Man 26.4 H Lymphocytes # (Manual) Monocytes # (Manual) 1.9 H PT INR APTT ABG pH POC ABG pO2 ABG pO2 ABG HCO3 ABG O2 Saturation ABG Base Excess ABG Hemoglobin ABG Potassium ABG Chloride ABG Glucose Oxyhemoglobin Sodium Potassium 3.3 L Chloride 108.9 H Carbon Dioxide 12 L BUN 59 H Creatinine 5.9 H Glucose 142 H POC Glucose Calcium 7.7 L Phosphorus Magnesium Alkaline Phosphatase 224 H Lactate Dehydrogenase Total Creatine Kinase Troponin T 0.033 H C-Reactive Protein Total Protein 5.4 L Albumin 1.9 L LDL Cholesterol Direct 35 L HDL Cholesterol 37 L Arterial Blood Glucose Arterial Blood Ionized Calcium Urine WBC (Auto) Urine Creatinine Ur Creatinine 24 Hour Urine Total Protein Crossmatch 03/16/20 03/16/20 03/16/20 14:27 19:50 21:15 WBC RBC Hgb Hct MCV MCHC RDW Plt Count Lymph % (Auto) Lymph # (Auto) [place] # (Auto) Baso # (Auto) Seg Neutrophils % Seg Neuts % (Manual) Lymphocytes % (Manual) Nucleated RBC % Seg Neutrophils # Seg Neutrophils # Man Lymphocytes # (Manual) Monocytes # (Manual) PT 17.2 H INR 1.37 H APTT 51.3 H ABG pH POC ABG pO2 ABG pO2 ABG HCO3 ABG O2 Saturation ABG Base Excess ABG Hemoglobin ABG Potassium ABG Chloride ABG Glucose Oxyhemoglobin Sodium Potassium Chloride Carbon Dioxide BUN Creatinine Glucose POC Glucose Calcium Phosphorus Magnesium Alkaline Phosphatase Lactate Dehydrogenase Total Creatine Kinase Troponin T 0.031 H C-Reactive Protein Total Protein Albumin LDL Cholesterol Direct HDL Cholesterol Arterial Blood Glucose Arterial Blood Ionized Calcium Urine WBC (Auto) > 182.0 H Urine Creatinine Ur Creatinine 24 Hour Urine Total Protein Crossmatch 03/16/20 03/17/20 03/17/20 22:25 11:13 11:13 WBC 34.4 H RBC 2.60 L Hgb 7.8 L Hct 25.2 L MCV 97 H MCHC 31 L RDW 18.7 H Plt Count Lymph % (Auto) Lymph # (Auto) [place] # (Auto) Baso # (Auto) Seg Neutrophils % Seg Neuts % (Manual) 88.0 H Lymphocytes % (Manual) 1.0 L Nucleated RBC % 13.0 H Seg Neutrophils # Seg Neutrophils # Man 30.3 H Lymphocytes # (Manual) 0.3 L Monocytes # (Manual) PT INR APTT ABG pH POC ABG pO2 ABG pO2 ABG HCO3 ABG O2 Saturation ABG Base Excess ABG Hemoglobin ABG Potassium ABG Chloride ABG Glucose Oxyhemoglobin Sodium Potassium 3.3 L Chloride 108.5 H Carbon Dioxide 16 L BUN 57 H Creatinine 5.5 H Glucose 325 H POC Glucose Calcium 7.0 L Phosphorus Magnesium Alkaline Phosphatase Lactate Dehydrogenase Total Creatine Kinase Troponin T 0.047 H D C-Reactive Protein Total Protein Albumin LDL Cholesterol Direct HDL Cholesterol Arterial Blood Glucose Arterial Blood Ionized Calcium Urine WBC (Auto) Urine Creatinine Ur Creatinine 24 Hour Urine Total Protein Crossmatch 03/17/20 03/17/20 03/17/20 11:13 11:40 Unknown WBC RBC Hgb Hct MCV MCHC RDW Plt Count Lymph % (Auto) Lymph # (Auto) [place] # (Auto) Baso # (Auto) Seg Neutrophils % Seg Neuts % (Manual) Lymphocytes % (Manual) Nucleated RBC % Seg Neutrophils # Seg Neutrophils # Man Lymphocytes # (Manual) Monocytes # (Manual) PT INR APTT ABG pH 7.229 L POC ABG pO2 ABG pO2 98.3 H ABG HCO3 14.6 L ABG O2 Saturation ABG Base Excess -12.0 L ABG Hemoglobin 8.9 L ABG Potassium ABG Chloride ABG Glucose Oxyhemoglobin Sodium Potassium Chloride Carbon Dioxide BUN Creatinine Glucose POC Glucose Calcium Phosphorus Magnesium Alkaline Phosphatase Lactate Dehydrogenase Total Creatine Kinase 373 H Troponin T C-Reactive Protein Total Protein Albumin LDL Cholesterol Direct HDL Cholesterol Arterial Blood Glucose Arterial Blood Ionized Calcium Urine WBC (Auto) > 182.0 H Urine Creatinine Ur Creatinine 24 Hour Urine Total Protein Crossmatch 03/17/20 03/18/20 03/18/20 Unknown 04:40 04:40 WBC 32.0 H RBC 2.56 L Hgb 7.9 L Hct 24.7 L MCV 96 H MCHC RDW 18.2 H Plt Count Lymph % (Auto) Lymph # (Auto) [place] # (Auto) Baso # (Auto) Seg Neutrophils % Seg Neuts % (Manual) Lymphocytes % (Manual) Nucleated RBC % Seg Neutrophils # Seg Neutrophils # Man Lymphocytes # (Manual) Monocytes # (Manual) PT INR APTT ABG pH POC ABG pO2 ABG pO2 ABG HCO3 ABG O2 Saturation ABG Base Excess ABG Hemoglobin ABG Potassium ABG Chloride ABG Glucose Oxyhemoglobin Sodium Potassium 2.7 L* Chloride 111.8 H Carbon Dioxide 12 L BUN 56 H Creatinine 4.6 H Glucose 347 H POC Glucose Calcium 6.7 L Phosphorus 5.40 H Magnesium Alkaline Phosphatase Lactate Dehydrogenase Total Creatine Kinase Troponin T C-Reactive Protein Total Protein Albumin LDL Cholesterol Direct HDL Cholesterol Arterial Blood Glucose Arterial Blood Ionized Calcium Urine WBC (Auto) Urine Creatinine 139.3 H Ur Creatinine 24 Hour Urine Total Protein 328 H Crossmatch 03/18/20 03/18/20 03/18/20 04:40 04:48 12:14 WBC RBC Hgb Hct MCV MCHC RDW Plt Count Lymph % (Auto) Lymph # (Auto) [place] # (Auto) Baso # (Auto) Seg Neutrophils % Seg Neuts % (Manual) Lymphocytes % (Manual) Nucleated RBC % Seg Neutrophils # Seg Neutrophils # Man Lymphocytes # (Manual) Monocytes # (Manual) PT INR APTT ABG pH 7.230 L 7.196 L POC ABG pO2 67.4 L ABG pO2 91.6 H ABG HCO3 13.7 L ABG O2 Saturation ABG Base Excess -12.8 L ABG Hemoglobin 9.2 L 9.9 L ABG Potassium 3.3 L ABG Chloride 112.0 H ABG Glucose 355 H Oxyhemoglobin 94.8 L Sodium Potassium Chloride Carbon Dioxide BUN Creatinine Glucose POC Glucose Calcium Phosphorus Magnesium 1.40 L Alkaline Phosphatase Lactate Dehydrogenase Total Creatine Kinase Troponin T C-Reactive Protein Total Protein Albumin LDL Cholesterol Direct HDL Cholesterol Arterial Blood Glucose 355 H Arterial Blood Ionized Calcium 4.5 L Urine WBC (Auto) Urine Creatinine Ur Creatinine 24 Hour Urine Total Protein Crossmatch 03/18/20 03/18/20 03/18/20 13:17 13:32 19:15 WBC RBC Hgb Hct MCV MCHC RDW Plt Count Lymph % (Auto) Lymph # (Auto) [place] # (Auto) Baso # (Auto) Seg Neutrophils % Seg Neuts % (Manual) Lymphocytes % (Manual) Nucleated RBC % Seg Neutrophils # Seg Neutrophils # Man Lymphocytes # (Manual) Monocytes # (Manual) PT INR APTT ABG pH POC ABG pO2 ABG pO2 ABG HCO3 ABG O2 Saturation ABG Base Excess ABG Hemoglobin ABG Potassium ABG Chloride ABG Glucose Oxyhemoglobin Sodium Potassium 3.0 L 3.4 L Chloride 107.2 H Carbon Dioxide 14 L 13 L BUN 59 H 67 H Creatinine 4.8 H 5.1 H Glucose 341 H 371 H POC Glucose 394 H Calcium 7.0 L 7.8 L Phosphorus Magnesium Alkaline Phosphatase Lactate Dehydrogenase Total Creatine Kinase Troponin T C-Reactive Protein Total Protein Albumin LDL Cholesterol Direct HDL Cholesterol Arterial Blood Glucose Arterial Blood Ionized Calcium Urine WBC (Auto) Urine Creatinine Ur Creatinine 24 Hour Urine Total Protein Crossmatch 03/18/20 03/18/20 03/19/20 19:21 23:00 01:32 EST WBC RBC Hgb Hct MCV MCHC RDW Plt Count Lymph % (Auto) Lymph # (Auto) [place] # (Auto) Baso # (Auto) Seg Neutrophils % Seg Neuts % (Manual) Lymphocytes % (Manual) Nucleated RBC % Seg Neutrophils # Seg Neutrophils # Man Lymphocytes # (Manual) Monocytes # (Manual) PT INR APTT ABG pH POC ABG pO2 ABG pO2 ABG HCO3 ABG O2 Saturation ABG Base Excess ABG Hemoglobin ABG Potassium ABG Chloride ABG Glucose Oxyhemoglobin Sodium Potassium Chloride Carbon Dioxide BUN Creatinine Glucose POC Glucose 453 H 360 H 338 H Calcium Phosphorus Magnesium Alkaline Phosphatase Lactate Dehydrogenase Total Creatine Kinase Troponin T C-Reactive Protein Total Protein Albumin LDL Cholesterol Direct HDL Cholesterol Arterial Blood Glucose Arterial Blood Ionized Calcium Urine WBC (Auto) Urine Creatinine Ur Creatinine 24 Hour Urine Total Protein Crossmatch 03/19/20 03/19/20 03/19/20 04:10 05:10 05:10 WBC 25.8 H RBC 3.61 L Hgb 10.9 L D Hct MCV 100 H MCHC 30 L RDW 19.1 H Plt Count Lymph % (Auto) Lymph # (Auto) [place] # (Auto) Baso # (Auto) Seg Neutrophils % Seg Neuts % (Manual) Lymphocytes % (Manual) Nucleated RBC % Seg Neutrophils # Seg Neutrophils # Man Lymphocytes # (Manual) Monocytes # (Manual) PT INR APTT ABG pH 7.309 L POC ABG pO2 ABG pO2 69.4 L ABG HCO3 17.9 L ABG O2 Saturation 92.4 L ABG Base Excess -7.6 L ABG Hemoglobin 8.1 L ABG Potassium ABG Chloride ABG Glucose Oxyhemoglobin 90.8 L Sodium Potassium Chloride Carbon Dioxide BUN Creatinine Glucose POC Glucose Calcium Phosphorus 5.60 H Magnesium Alkaline Phosphatase Lactate Dehydrogenase Total Creatine Kinase Troponin T C-Reactive Protein Total Protein Albumin LDL Cholesterol Direct HDL Cholesterol Arterial Blood Glucose Arterial Blood Ionized Calcium Urine WBC (Auto) Urine Creatinine Ur Creatinine 24 Hour Urine Total Protein Crossmatch 03/19/20 03/19/20 03/19/20 10:00 11:22 Unknown WBC RBC Hgb Hct MCV MCHC RDW Plt Count Lymph % (Auto) Lymph # (Auto) [place] # (Auto) Baso # (Auto) Seg Neutrophils % Seg Neuts % (Manual) Lymphocytes % (Manual) Nucleated RBC % Seg Neutrophils # Seg Neutrophils # Man Lymphocytes # (Manual) Monocytes # (Manual) PT 15.3 H INR 1.18 H APTT ABG pH POC ABG pO2 ABG pO2 ABG HCO3 ABG O2 Saturation ABG Base Excess ABG Hemoglobin ABG Potassium ABG Chloride ABG Glucose Oxyhemoglobin Sodium Potassium 3.0 L Chloride Carbon Dioxide BUN 69 H Creatinine 5.4 H Glucose 250 H POC Glucose 274 H Calcium 7.9 L Phosphorus Magnesium Alkaline Phosphatase Lactate Dehydrogenase Total Creatine Kinase Troponin T C-Reactive Protein Total Protein Albumin LDL Cholesterol Direct HDL Cholesterol Arterial Blood Glucose Arterial Blood Ionized Calcium Urine WBC (Auto) Urine Creatinine Ur Creatinine 24 Hour Urine Total Protein Crossmatch 03/20/20 03/20/20 03/20/20 01:56 05:22 06:35 WBC 27.5 H RBC 2.57 L Hgb 7.9 L D Hct 23.3 L D MCV MCHC RDW 17.7 H Plt Count Lymph % (Auto) Lymph # (Auto) [place] # (Auto) Baso # (Auto) Seg Neutrophils % Seg Neuts % (Manual) Lymphocytes % (Manual) Nucleated RBC % Seg Neutrophils # Seg Neutrophils # Man Lymphocytes # (Manual) Monocytes # (Manual) PT INR APTT ABG pH POC ABG pO2 ABG pO2 ABG HCO3 ABG O2 Saturation ABG Base Excess ABG Hemoglobin ABG Potassium ABG Chloride ABG Glucose Oxyhemoglobin Sodium Potassium Chloride Carbon Dioxide BUN Creatinine Glucose POC Glucose 145 H 181 H Calcium Phosphorus Magnesium Alkaline Phosphatase Lactate Dehydrogenase Total Creatine Kinase Troponin T C-Reactive Protein Total Protein Albumin LDL Cholesterol Direct HDL Cholesterol Arterial Blood Glucose Arterial Blood Ionized Calcium Urine WBC (Auto) Urine Creatinine Ur Creatinine 24 Hour Urine Total Protein Crossmatch 11/02/20 11/02/20 11/02/20 06:35 12:10 13:30 WBC RBC Hgb Hct MCV MCHC RDW Plt Count Lymph % (Auto) Lymph # (Auto) [place] # (Auto) Baso # (Auto) Seg Neutrophils % Seg Neuts % (Manual) Lymphocytes % (Manual) Nucleated RBC % Seg Neutrophils # Seg Neutrophils # Man Lymphocytes # (Manual) Monocytes # (Manual) PT INR APTT ABG pH POC ABG pO2 ABG pO2 ABG HCO3 ABG O2 Saturation ABG Base Excess ABG Hemoglobin ABG Potassium ABG Chloride ABG Glucose Oxyhemoglobin Sodium Potassium 2.9 L* Chloride Carbon Dioxide BUN 69 H Creatinine 5.1 H Glucose 146 H POC Glucose 164 H Calcium 8.2 L Phosphorus 5.40 H Magnesium Alkaline Phosphatase Lactate Dehydrogenase Total Creatine Kinase Troponin T C-Reactive Protein Total Protein Albumin LDL Cholesterol Direct HDL Cholesterol Arterial Blood Glucose Arterial Blood Ionized Calcium Urine WBC (Auto) 153.0 H Urine Creatinine Ur Creatinine 24 Hour Urine Total Protein Crossmatch 03/20/20 03/20/20 03/20/20 16:00 16:35 17:23 WBC RBC Hgb Hct MCV MCHC RDW Plt Count Lymph % (Auto) Lymph # (Auto) [place] # (Auto) Baso # (Auto) Seg Neutrophils % Seg Neuts % (Manual) Lymphocytes % (Manual) Nucleated RBC % Seg Neutrophils # Seg Neutrophils # Man Lymphocytes # (Manual) Monocytes # (Manual) PT INR APTT ABG pH POC ABG pO2 ABG pO2 63.9 L ABG HCO3 ABG O2 Saturation 90.9 L ABG Base Excess -2.6 L ABG Hemoglobin 9.5 L ABG Potassium ABG Chloride ABG Glucose Oxyhemoglobin 89.3 L Sodium 146 H Potassium 3.3 L Chloride Carbon Dioxide BUN 72 H Creatinine 5.1 H Glucose 150 H POC Glucose 191 H Calcium 8.2 L Phosphorus Magnesium Alkaline Phosphatase Lactate Dehydrogenase Total Creatine Kinase Troponin T C-Reactive Protein Total Protein Albumin LDL Cholesterol Direct HDL Cholesterol Arterial Blood Glucose Arterial Blood Ionized Calcium Urine WBC (Auto) Urine Creatinine Ur Creatinine 24 Hour Urine Total Protein Crossmatch 03/21/20 03/21/20 03/21/20 00:48 03:55 03:55 WBC 22.4 H RBC 2.06 L Hgb 6.3 L Hct 19.2 L* MCV MCHC RDW 17.7 H Plt Count 86 L Lymph % (Auto) Lymph # (Auto) [place] # (Auto) Baso # (Auto) Seg Neutrophils % Seg Neuts % (Manual) Lymphocytes % (Manual) Nucleated RBC % Seg Neutrophils # Seg Neutrophils # Man Lymphocytes # (Manual) Monocytes # (Manual) PT INR APTT ABG pH POC ABG pO2 ABG pO2 ABG HCO3 ABG O2 Saturation ABG Base Excess ABG Hemoglobin ABG Potassium ABG Chloride ABG Glucose Oxyhemoglobin Sodium 148 H Potassium 2.8 L* Chloride 108.2 H Carbon Dioxide BUN 52 H Creatinine 3.8 H Glucose 130 H POC Glucose 158 H Calcium 7.6 L Phosphorus Magnesium Alkaline Phosphatase Lactate Dehydrogenase Total Creatine Kinase Troponin T C-Reactive Protein Total Protein Albumin LDL Cholesterol Direct HDL Cholesterol Arterial Blood Glucose Arterial Blood Ionized Calcium Urine WBC (Auto) Urine Creatinine Ur Creatinine 24 Hour Urine Total Protein Crossmatch 03/21/20 03/21/20 03/21/20 05:37 06:43 09:15 WBC RBC Hgb Hct MCV MCHC RDW Plt Count Lymph % (Auto) Lymph # (Auto) [place] # (Auto) Baso # (Auto) Seg Neutrophils % Seg Neuts % (Manual) Lymphocytes % (Manual) Nucleated RBC % Seg Neutrophils # Seg Neutrophils # Man Lymphocytes # (Manual) Monocytes # (Manual) PT INR APTT ABG pH POC ABG pO2 ABG pO2 ABG HCO3 ABG O2 Saturation ABG Base Excess ABG Hemoglobin ABG Potassium ABG Chloride ABG Glucose Oxyhemoglobin Sodium Potassium 3.5 L D Chloride Carbon Dioxide BUN 56 H Creatinine 4.3 H Glucose 104 H POC Glucose 159 H Calcium Phosphorus Magnesium Alkaline Phosphatase Lactate Dehydrogenase Total Creatine Kinase Troponin T C-Reactive Protein Total Protein Albumin LDL Cholesterol Direct HDL Cholesterol Arterial Blood Glucose Arterial Blood Ionized Calcium Urine WBC (Auto) Urine Creatinine Ur Creatinine 24 Hour Urine Total Protein Crossmatch See Detail 03/21/20 03/21/20 03/22/20 12:55 17:26 00:16 WBC RBC Hgb Hct MCV MCHC RDW Plt Count Lymph % (Auto) Lymph # (Auto) [place] # (Auto) Baso # (Auto) Seg Neutrophils % Seg Neuts % (Manual) Lymphocytes % (Manual) Nucleated RBC % Seg Neutrophils # Seg Neutrophils # Man Lymphocytes # (Manual) Monocytes # (Manual) PT INR APTT ABG pH POC ABG pO2 ABG pO2 ABG HCO3 ABG O2 Saturation ABG Base Excess ABG Hemoglobin ABG Potassium ABG Chloride ABG Glucose Oxyhemoglobin Sodium Potassium Chloride Carbon Dioxide BUN Creatinine Glucose POC Glucose 157 H 128 H 148 H Calcium Phosphorus Magnesium Alkaline Phosphatase Lactate Dehydrogenase Total Creatine Kinase Troponin T C-Reactive Protein Total Protein Albumin LDL Cholesterol Direct HDL Cholesterol Arterial Blood Glucose Arterial Blood Ionized Calcium Urine WBC (Auto) Urine Creatinine Ur Creatinine 24 Hour Urine Total Protein Crossmatch 03/22/20 03/22/20 03/22/20 04:00 04:43 05:00 WBC 26.2 H RBC 3.16 L Hgb 9.6 L D Hct 29.1 L D MCV MCHC RDW 18.2 H Plt Count 86 L Lymph % (Auto) Lymph # (Auto) [place] # (Auto) Baso # (Auto) Seg Neutrophils % Seg Neuts % (Manual) Lymphocytes % (Manual) Nucleated RBC % Seg Neutrophils # Seg Neutrophils # Man Lymphocytes # (Manual) Monocytes # (Manual) PT INR APTT ABG pH POC ABG pO2 ABG pO2 ABG HCO3 ABG O2 Saturation ABG Base Excess ABG Hemoglobin ABG Potassium ABG Chloride ABG Glucose Oxyhemoglobin Sodium Potassium 3.5 L Chloride Carbon Dioxide BUN 47 H Creatinine 3.3 H Glucose 171 H POC Glucose Calcium 8.3 L Phosphorus Magnesium 1.60 L Alkaline Phosphatase Lactate Dehydrogenase Total Creatine Kinase Troponin T C-Reactive Protein Total Protein Albumin LDL Cholesterol Direct HDL Cholesterol Arterial Blood Glucose Arterial Blood Ionized Calcium Urine WBC (Auto) Urine Creatinine Ur Creatinine 24 Hour Urine Total Protein Crossmatch 03/22/20 03/22/20 03/22/20 05:41 12:18 17:29 WBC RBC Hgb Hct MCV MCHC RDW Plt Count Lymph % (Auto) Lymph # (Auto) [place] # (Auto) Baso # (Auto) Seg Neutrophils % Seg Neuts % (Manual) Lymphocytes % (Manual) Nucleated RBC % Seg Neutrophils # Seg Neutrophils # Man Lymphocytes # (Manual) Monocytes # (Manual) PT INR APTT ABG pH POC ABG pO2 ABG pO2 ABG HCO3 ABG O2 Saturation ABG Base Excess ABG Hemoglobin ABG Potassium ABG Chloride ABG Glucose Oxyhemoglobin Sodium Potassium Chloride Carbon Dioxide BUN Creatinine Glucose POC Glucose 183 H 129 H 184 H Calcium Phosphorus Magnesium Alkaline Phosphatase Lactate Dehydrogenase Total Creatine Kinase Troponin T C-Reactive Protein Total Protein Albumin LDL Cholesterol Direct HDL Cholesterol Arterial Blood Glucose Arterial Blood Ionized Calcium Urine WBC (Auto) Urine Creatinine Ur Creatinine 24 Hour Urine Total Protein Crossmatch 03/22/20 03/23/20 03/23/20 19:13 00:22 06:09 WBC RBC Hgb Hct MCV MCHC RDW Plt Count Lymph % (Auto) Lymph # (Auto) [place] # (Auto) Baso # (Auto) Seg Neutrophils % Seg Neuts % (Manual) Lymphocytes % (Manual) Nucleated RBC % Seg Neutrophils # Seg Neutrophils # Man Lymphocytes # (Manual) Monocytes # (Manual) PT INR APTT 91.0 H* ABG pH POC ABG pO2 ABG pO2 ABG HCO3 ABG O2 Saturation ABG Base Excess ABG Hemoglobin ABG Potassium ABG Chloride ABG Glucose Oxyhemoglobin Sodium Potassium Chloride Carbon Dioxide BUN Creatinine Glucose POC Glucose 159 H 166 H Calcium Phosphorus Magnesium Alkaline Phosphatase Lactate Dehydrogenase Total Creatine Kinase Troponin T C-Reactive Protein Total Protein Albumin LDL Cholesterol Direct HDL Cholesterol Arterial Blood Glucose Arterial Blood Ionized Calcium Urine WBC (Auto) Urine Creatinine Ur Creatinine 24 Hour Urine Total Protein Crossmatch 03/23/20 03/23/20 03/23/20 09:35 09:35 09:35 WBC 26.9 H RBC 3.60 L Hgb 10.7 L Hct 32.7 L MCV MCHC RDW 18.9 H Plt Count 98 L Lymph % (Auto) Lymph # (Auto) [place] # (Auto) Baso # (Auto) Seg Neutrophils % Seg Neuts % (Manual) 94.0 H Lymphocytes % (Manual) 2.0 L Nucleated RBC % 1.0 H Seg Neutrophils # Seg Neutrophils # Man 25.3 H Lymphocytes # (Manual) 0.5 L Monocytes # (Manual) PT INR APTT ABG pH POC ABG pO2 ABG pO2 ABG HCO3 ABG O2 Saturation ABG Base Excess ABG Hemoglobin ABG Potassium ABG Chloride ABG Glucose Oxyhemoglobin Sodium Potassium 3.5 L Chloride Carbon Dioxide BUN 61 H Creatinine 3.7 H Glucose 148 H POC Glucose Calcium Phosphorus 4.90 H D Magnesium Alkaline Phosphatase Lactate Dehydrogenase Total Creatine Kinase Troponin T C-Reactive Protein Total Protein Albumin LDL Cholesterol Direct HDL Cholesterol Arterial Blood Glucose Arterial Blood Ionized Calcium Urine WBC (Auto) Urine Creatinine Ur Creatinine 24 Hour Urine Total Protein Crossmatch 03/23/20 03/23/20 03/23/20 09:35 11:56 17:07 WBC RBC Hgb Hct MCV MCHC RDW Plt Count Lymph % (Auto) Lymph # (Auto) [place] # (Auto) Baso # (Auto) Seg Neutrophils % Seg Neuts % (Manual) Lymphocytes % (Manual) Nucleated RBC % Seg Neutrophils # Seg Neutrophils # Man Lymphocytes # (Manual) Monocytes # (Manual) PT INR APTT 115.2 H* 74.5 H* ABG pH POC ABG pO2 ABG pO2 ABG HCO3 ABG O2 Saturation ABG Base Excess ABG Hemoglobin ABG Potassium ABG Chloride ABG Glucose Oxyhemoglobin Sodium Potassium Chloride Carbon Dioxide BUN Creatinine Glucose POC Glucose 159 H Calcium Phosphorus Magnesium Alkaline Phosphatase Lactate Dehydrogenase Total Creatine Kinase Troponin T C-Reactive Protein Total Protein Albumin LDL Cholesterol Direct HDL Cholesterol Arterial Blood Glucose Arterial Blood Ionized Calcium Urine WBC (Auto) Urine Creatinine Ur Creatinine 24 Hour Urine Total Protein Crossmatch 03/23/20 03/23/20 03/23/20 17:34 21:45 22:24 WBC RBC Hgb Hct MCV MCHC RDW Plt Count Lymph % (Auto) Lymph # (Auto) [place] # (Auto) Baso # (Auto) Seg Neutrophils % Seg Neuts % (Manual) Lymphocytes % (Manual) Nucleated RBC % Seg Neutrophils # Seg Neutrophils # Man Lymphocytes # (Manual) Monocytes # (Manual) PT INR APTT 112.5 H* ABG pH POC ABG pO2 ABG pO2 ABG HCO3 ABG O2 Saturation ABG Base Excess ABG Hemoglobin ABG Potassium ABG Chloride ABG Glucose Oxyhemoglobin Sodium Potassium Chloride Carbon Dioxide BUN Creatinine Glucose POC Glucose 217 H 160 H Calcium Phosphorus Magnesium Alkaline Phosphatase Lactate Dehydrogenase Total Creatine Kinase Troponin T C-Reactive Protein Total Protein Albumin LDL Cholesterol Direct HDL Cholesterol Arterial Blood Glucose Arterial Blood Ionized Calcium Urine WBC (Auto) Urine Creatinine Ur Creatinine 24 Hour Urine Total Protein Crossmatch 03/24/20 03/24/20 03/24/20 01:13 05:19 05:19 WBC 28.6 H RBC 3.57 L Hgb 10.7 L Hct 33.3 L MCV MCHC RDW 18.4 H Plt Count 94 L Lymph % (Auto) 4.0 L Lymph # (Auto) 1.1 L [place] # (Auto) 0.9 H Baso # (Auto) Seg Neutrophils % Seg Neuts % (Manual) Lymphocytes % (Manual) Nucleated RBC % Seg Neutrophils # 26.4 H Seg Neutrophils # Man Lymphocytes # (Manual) Monocytes # (Manual) PT INR APTT ABG pH POC ABG pO2 ABG pO2 ABG HCO3 ABG O2 Saturation ABG Base Excess ABG Hemoglobin ABG Potassium ABG Chloride ABG Glucose Oxyhemoglobin Sodium 146 H Potassium 3.5 L Chloride Carbon Dioxide BUN 71 H Creatinine 3.9 H Glucose 141 H POC Glucose 186 H Calcium 8.3 L Phosphorus 5.80 H Magnesium Alkaline Phosphatase Lactate Dehydrogenase Total Creatine Kinase Troponin T C-Reactive Protein Total Protein Albumin LDL Cholesterol Direct HDL Cholesterol Arterial Blood Glucose Arterial Blood Ionized Calcium Urine WBC (Auto) Urine Creatinine Ur Creatinine 24 Hour Urine Total Protein Crossmatch 03/24/20 03/24/20 03/24/20 05:19 06:35 12:24 WBC RBC Hgb Hct MCV MCHC RDW Plt Count Lymph % (Auto) Lymph # (Auto) [place] # (Auto) Baso # (Auto) Seg Neutrophils % Seg Neuts % (Manual) Lymphocytes % (Manual) Nucleated RBC % Seg Neutrophils # Seg Neutrophils # Man Lymphocytes # (Manual) Monocytes # (Manual) PT INR APTT 91.5 H* ABG pH POC ABG pO2 ABG pO2 ABG HCO3 ABG O2 Saturation ABG Base Excess ABG Hemoglobin ABG Potassium ABG Chloride ABG Glucose Oxyhemoglobin Sodium Potassium Chloride Carbon Dioxide BUN Creatinine Glucose POC Glucose 153 H 162 H Calcium Phosphorus Magnesium Alkaline Phosphatase Lactate Dehydrogenase Total Creatine Kinase Troponin T C-Reactive Protein Total Protein Albumin LDL Cholesterol Direct HDL Cholesterol Arterial Blood Glucose Arterial Blood Ionized Calcium Urine WBC (Auto) Urine Creatinine Ur Creatinine 24 Hour Urine Total Protein Crossmatch 03/24/20 03/24/20 03/25/20 19:50 23:56 05:11 WBC RBC Hgb Hct MCV MCHC RDW Plt Count Lymph % (Auto) Lymph # (Auto) [place] # (Auto) Baso # (Auto) Seg Neutrophils % Seg Neuts % (Manual) Lymphocytes % (Manual) Nucleated RBC % Seg Neutrophils # Seg Neutrophils # Man Lymphocytes # (Manual) Monocytes # (Manual) PT INR APTT 75.3 H* ABG pH POC ABG pO2 ABG pO2 ABG HCO3 ABG O2 Saturation ABG Base Excess ABG Hemoglobin ABG Potassium ABG Chloride ABG Glucose Oxyhemoglobin Sodium Potassium Chloride Carbon Dioxide BUN Creatinine Glucose POC Glucose 193 H 139 H Calcium Phosphorus Magnesium Alkaline Phosphatase Lactate Dehydrogenase Total Creatine Kinase Troponin T C-Reactive Protein Total Protein Albumin LDL Cholesterol Direct HDL Cholesterol Arterial Blood Glucose Arterial Blood Ionized Calcium Urine WBC (Auto) Urine Creatinine Ur Creatinine 24 Hour Urine Total Protein Crossmatch 03/25/20 03/25/20 03/25/20 06:25 15:39 15:55 WBC RBC Hgb Hct MCV MCHC RDW Plt Count Lymph % (Auto) Lymph # (Auto) [place] # (Auto) Baso # (Auto) Seg Neutrophils % Seg Neuts % (Manual) Lymphocytes % (Manual) Nucleated RBC % Seg Neutrophils # Seg Neutrophils # Man Lymphocytes # (Manual) Monocytes # (Manual) PT INR APTT 79.3 H* ABG pH POC ABG pO2 ABG pO2 ABG HCO3 ABG O2 Saturation ABG Base Excess ABG Hemoglobin ABG Potassium ABG Chloride ABG Glucose Oxyhemoglobin Sodium Potassium Chloride Carbon Dioxide BUN 54 H Creatinine 3.1 H Glucose 112 H POC Glucose 111 H Calcium 8.3 L Phosphorus 4.90 H Magnesium Alkaline Phosphatase Lactate Dehydrogenase Total Creatine Kinase Troponin T C-Reactive Protein Total Protein Albumin LDL Cholesterol Direct HDL Cholesterol Arterial Blood Glucose Arterial Blood Ionized Calcium Urine WBC (Auto) Urine Creatinine Ur Creatinine 24 Hour Urine Total Protein Crossmatch 03/25/20 03/26/20 03/26/20 23:40 00:32 06:31 WBC RBC Hgb Hct MCV MCHC RDW Plt Count Lymph % (Auto) Lymph # (Auto) [place] # (Auto) Baso # (Auto) Seg Neutrophils % Seg Neuts % (Manual) Lymphocytes % (Manual) Nucleated RBC % Seg Neutrophils # Seg Neutrophils # Man Lymphocytes # (Manual) Monocytes # (Manual) PT INR APTT 83.1 H* ABG pH POC ABG pO2 ABG pO2 ABG HCO3 ABG O2 Saturation ABG Base Excess ABG Hemoglobin ABG Potassium ABG Chloride ABG Glucose Oxyhemoglobin Sodium Potassium 3.2 L Chloride Carbon Dioxide BUN 63 H Creatinine 3.6 H Glucose POC Glucose 115 H Calcium 8.1 L Phosphorus 5.60 H Magnesium Alkaline Phosphatase Lactate Dehydrogenase Total Creatine Kinase Troponin T C-Reactive Protein Total Protein Albumin LDL Cholesterol Direct HDL Cholesterol Arterial Blood Glucose Arterial Blood Ionized Calcium Urine WBC (Auto) Urine Creatinine Ur Creatinine 24 Hour Urine Total Protein Crossmatch 03/26/20 03/26/20 03/26/20 13:23 13:33 14:18 WBC RBC Hgb Hct MCV MCHC RDW Plt Count Lymph % (Auto) Lymph # (Auto) [place] # (Auto) Baso # (Auto) Seg Neutrophils % Seg Neuts % (Manual) Lymphocytes % (Manual) Nucleated RBC % Seg Neutrophils # Seg Neutrophils # Man Lymphocytes # (Manual) Monocytes # (Manual) PT INR APTT 75.5 H* ABG pH POC ABG pO2 ABG pO2 ABG HCO3 ABG O2 Saturation ABG Base Excess ABG Hemoglobin ABG Potassium ABG Chloride ABG Glucose Oxyhemoglobin Sodium Potassium Chloride Carbon Dioxide BUN Creatinine Glucose POC Glucose 107 H Calcium Phosphorus Magnesium Alkaline Phosphatase Lactate Dehydrogenase Total Creatine Kinase Troponin T C-Reactive Protein Total Protein Albumin LDL Cholesterol Direct HDL Cholesterol Arterial Blood Glucose Arterial Blood Ionized Calcium Urine WBC (Auto) Urine Creatinine 63.7 H Ur Creatinine 24 Hour 0.4 L Urine Total Protein Crossmatch 03/27/20 03/27/20 03/27/20 05:26 11:22 12:08 WBC RBC Hgb Hct MCV MCHC RDW Plt Count Lymph % (Auto) Lymph # (Auto) [place] # (Auto) Baso # (Auto) Seg Neutrophils % Seg Neuts % (Manual) Lymphocytes % (Manual) Nucleated RBC % Seg Neutrophils # Seg Neutrophils # Man Lymphocytes # (Manual) Monocytes # (Manual) PT INR APTT ABG pH POC ABG pO2 ABG pO2 ABG HCO3 ABG O2 Saturation ABG Base Excess ABG Hemoglobin ABG Potassium ABG Chloride ABG Glucose Oxyhemoglobin Sodium Potassium Chloride Carbon Dioxide BUN 70 H Creatinine 3.9 H Glucose 67 L POC Glucose 44 L Calcium 8.3 L Phosphorus 6.40 H Magnesium Alkaline Phosphatase Lactate Dehydrogenase 255 H Total Creatine Kinase Troponin T C-Reactive Protein Total Protein Albumin LDL Cholesterol Direct HDL Cholesterol Arterial Blood Glucose Arterial Blood Ionized Calcium Urine WBC (Auto) Urine Creatinine Ur Creatinine 24 Hour Urine Total Protein Crossmatch 03/27/20 03/27/20 03/27/20 12:29 14:31 16:00 WBC RBC Hgb Hct MCV MCHC RDW Plt Count Lymph % (Auto) Lymph # (Auto) [place] # (Auto) Baso # (Auto) Seg Neutrophils % Seg Neuts % (Manual) Lymphocytes % (Manual) Nucleated RBC % Seg Neutrophils # Seg Neutrophils # Man Lymphocytes # (Manual) Monocytes # (Manual) PT INR APTT 74.1 H* ABG pH POC ABG pO2 ABG pO2 ABG HCO3 ABG O2 Saturation ABG Base Excess ABG Hemoglobin ABG Potassium ABG Chloride ABG Glucose Oxyhemoglobin Sodium Potassium Chloride Carbon Dioxide BUN Creatinine Glucose POC Glucose 53 L 132 H Calcium Phosphorus Magnesium Alkaline Phosphatase Lactate Dehydrogenase Total Creatine Kinase Troponin T C-Reactive Protein Total Protein Albumin LDL Cholesterol Direct HDL Cholesterol Arterial Blood Glucose Arterial Blood Ionized Calcium Urine WBC (Auto) Urine Creatinine Ur Creatinine 24 Hour Urine Total Protein Crossmatch 03/27/20 03/27/20 03/27/20 16:00 16:00 17:07 WBC 14.8 H RBC 3.30 L Hgb 10.2 L Hct 30.8 L MCV MCHC RDW 17.6 H Plt Count 101 L Lymph % (Auto) Lymph # (Auto) [place] # (Auto) Baso # (Auto) Seg Neutrophils % Seg Neuts % (Manual) 93.0 H Lymphocytes % (Manual) 4.0 L Nucleated RBC % Seg Neutrophils # Seg Neutrophils # Man 13.8 H Lymphocytes # (Manual) 0.6 L Monocytes # (Manual) PT INR APTT ABG pH POC ABG pO2 ABG pO2 ABG HCO3 ABG O2 Saturation ABG Base Excess ABG Hemoglobin ABG Potassium ABG Chloride ABG Glucose Oxyhemoglobin Sodium Potassium Chloride Carbon Dioxide BUN Creatinine Glucose POC Glucose 154 H Calcium Phosphorus Magnesium Alkaline Phosphatase Lactate Dehydrogenase Total Creatine Kinase Troponin T C-Reactive Protein 3.20 H Total Protein Albumin LDL Cholesterol Direct HDL Cholesterol Arterial Blood Glucose Arterial Blood Ionized Calcium Urine WBC (Auto) Urine Creatinine Ur Creatinine 24 Hour Urine Total Protein Crossmatch 03/27/20 03/28/20 03/28/20 21:38 00:52 05:49 WBC 17.1 H RBC 3.05 L Hgb 9.4 L Hct 28.2 L MCV MCHC RDW 17.0 H Plt Count 98 L Lymph % (Auto) 4.3 L Lymph # (Auto) 0.7 L [place] # (Auto) Baso # (Auto) 0.2 H Seg Neutrophils % 89.8 H Seg Neuts % (Manual) Lymphocytes % (Manual) Nucleated RBC % Seg Neutrophils # 15.4 H Seg Neutrophils # Man Lymphocytes # (Manual) Monocytes # (Manual) PT INR APTT ABG pH POC ABG pO2 ABG pO2 ABG HCO3 ABG O2 Saturation ABG Base Excess ABG Hemoglobin ABG Potassium ABG Chloride ABG Glucose Oxyhemoglobin Sodium Potassium 3.3 L Chloride Carbon Dioxide BUN 52 H Creatinine 3.3 H Glucose POC Glucose 191 H Calcium 8.1 L Phosphorus 6.10 H Magnesium Alkaline Phosphatase Lactate Dehydrogenase Total Creatine Kinase Troponin T C-Reactive Protein Total Protein Albumin LDL Cholesterol Direct HDL Cholesterol Arterial Blood Glucose Arterial Blood Ionized Calcium Urine WBC (Auto) Urine Creatinine Ur Creatinine 24 Hour Urine Total Protein Crossmatch 03/28/20 03/29/20 03/29/20 05:49 00:34 06:26 WBC 17.7 H RBC 3.21 L Hgb 9.8 L Hct 30.6 L MCV 95 H MCHC RDW 17.4 H Plt Count 83 L Lymph % (Auto) 11.7 L Lymph # (Auto) [place] # (Auto) 1.1 H Baso # (Auto) Seg Neutrophils % 80.6 H Seg Neuts % (Manual) Lymphocytes % (Manual) Nucleated RBC % Seg Neutrophils # 14.3 H Seg Neutrophils # Man Lymphocytes # (Manual) Monocytes # (Manual) PT INR APTT 69.2 H* ABG pH POC ABG pO2 ABG pO2 ABG HCO3 ABG O2 Saturation ABG Base Excess ABG Hemoglobin ABG Potassium ABG Chloride ABG Glucose Oxyhemoglobin Sodium Potassium 3.2 L Chloride Carbon Dioxide BUN 57 H Creatinine 3.7 H Glucose POC Glucose Calcium 8.1 L Phosphorus 7.20 H Magnesium Alkaline Phosphatase Lactate Dehydrogenase Total Creatine Kinase Troponin T C-Reactive Protein Total Protein Albumin LDL Cholesterol Direct HDL Cholesterol Arterial Blood Glucose Arterial Blood Ionized Calcium Urine WBC (Auto) Urine Creatinine Ur Creatinine 24 Hour Urine Total Protein Crossmatch 03/29/20 03/29/20 03/30/20 06:26 21:30 00:47 WBC RBC 2.60 L Hgb 8.1 L Hct 24.9 L MCV 96 H MCHC RDW 17.6 H Plt Count 76 L Lymph % (Auto) 7.5 L Lymph # (Auto) 0.8 L [place] # (Auto) Baso # (Auto) Seg Neutrophils % 84.8 H Seg Neuts % (Manual) Lymphocytes % (Manual) Nucleated RBC % Seg Neutrophils # 9.1 H Seg Neutrophils # Man Lymphocytes # (Manual) Monocytes # (Manual) PT INR APTT 48.6 H ABG pH POC ABG pO2 ABG pO2 ABG HCO3 ABG O2 Saturation ABG Base Excess ABG Hemoglobin ABG Potassium ABG Chloride ABG Glucose Oxyhemoglobin Sodium Potassium Chloride Carbon Dioxide BUN Creatinine Glucose POC Glucose 171 H Calcium Phosphorus Magnesium Alkaline Phosphatase Lactate Dehydrogenase Total Creatine Kinase Troponin T C-Reactive Protein Total Protein Albumin LDL Cholesterol Direct HDL Cholesterol Arterial Blood Glucose Arterial Blood Ionized Calcium Urine WBC (Auto) Urine Creatinine Ur Creatinine 24 Hour Urine Total Protein Crossmatch 03/30/20 03/30/20 03/30/20 05:39 12:01 17:27 WBC RBC Hgb Hct MCV MCHC RDW Plt Count Lymph % (Auto) Lymph # (Auto) [place] # (Auto) Baso # (Auto) Seg Neutrophils % Seg Neuts % (Manual) Lymphocytes % (Manual) Nucleated RBC % Seg Neutrophils # Seg Neutrophils # Man Lymphocytes # (Manual) Monocytes # (Manual) PT INR APTT ABG pH POC ABG pO2 ABG pO2 ABG HCO3 ABG O2 Saturation ABG Base Excess ABG Hemoglobin ABG Potassium ABG Chloride ABG Glucose Oxyhemoglobin Sodium Potassium 2.7 L* Chloride Carbon Dioxide BUN 33 H Creatinine 2.8 H Glucose POC Glucose 163 H 137 H Calcium 7.6 L Phosphorus Magnesium Alkaline Phosphatase Lactate Dehydrogenase Total Creatine Kinase Troponin T C-Reactive Protein Total Protein Albumin LDL Cholesterol Direct HDL Cholesterol Arterial Blood Glucose Arterial Blood Ionized Calcium Urine WBC (Auto) Urine Creatinine Ur Creatinine 24 Hour Urine Total Protein Crossmatch 03/30/20 03/30/20 03/31/20 21:21 22:49 05:28 WBC RBC Hgb Hct MCV MCHC RDW Plt Count Lymph % (Auto) Lymph # (Auto) [place] # (Auto) Baso # (Auto) Seg Neutrophils % Seg Neuts % (Manual) Lymphocytes % (Manual) Nucleated RBC % Seg Neutrophils # Seg Neutrophils # Man Lymphocytes # (Manual) Monocytes # (Manual) PT INR APTT ABG pH POC ABG pO2 ABG pO2 ABG HCO3 ABG O2 Saturation ABG Base Excess ABG Hemoglobin ABG Potassium ABG Chloride ABG Glucose Oxyhemoglobin Sodium Potassium 2.9 L* Chloride 108.1 H Carbon Dioxide BUN 40 H Creatinine 3.2 H Glucose 151 H POC Glucose 327 H 231 H Calcium 7.8 L Phosphorus Magnesium Alkaline Phosphatase Lactate Dehydrogenase Total Creatine Kinase Troponin T C-Reactive Protein Total Protein Albumin LDL Cholesterol Direct HDL Cholesterol Arterial Blood Glucose Arterial Blood Ionized Calcium Urine WBC (Auto) Urine Creatinine Ur Creatinine 24 Hour Urine Total Protein Crossmatch 03/31/20 03/31/20 08:35 12:35 WBC RBC Hgb Hct MCV MCHC RDW Plt Count Lymph % (Auto) Lymph # (Auto) [place] # (Auto) Baso # (Auto) Seg Neutrophils % Seg Neuts % (Manual) Lymphocytes % (Manual) Nucleated RBC % Seg Neutrophils # Seg Neutrophils # Man Lymphocytes # (Manual) Monocytes # (Manual) PT INR APTT ABG pH POC ABG pO2 ABG pO2 ABG HCO3 ABG O2 Saturation ABG Base Excess ABG Hemoglobin ABG Potassium ABG Chloride ABG Glucose Oxyhemoglobin Sodium Potassium Chloride Carbon Dioxide BUN Creatinine Glucose POC Glucose 191 H 193 H Calcium Phosphorus Magnesium Alkaline Phosphatase Lactate Dehydrogenase Total Creatine Kinase Troponin T C-Reactive Protein Total Protein Albumin LDL Cholesterol Direct HDL Cholesterol Arterial Blood Glucose Arterial Blood Ionized Calcium Urine WBC (Auto) Urine Creatinine Ur Creatinine 24 Hour Urine Total Protein Crossmatch Chest x-ray: other (none today) Allied health notes reviewed: nursing
--- NOTE | 2020-03-31 16:30 | Progress Note ---
Assessment and Plan --Septic shock Due to C. difficile infection, this has resolved --C. difficile infection Continue p.o. vancomycin 250 mg every 6 hours for 14 days ID recommendations appreciated --Anemia OF Chronic Disease Monitor hemoglobin Transfused as needed to hemoglobin 7 --Electrolyte abnormalities-hypokalemia, hypomagnesemia-replete as needed --Recent ESBL E. coli bacteremia patient was discharged on ertapenem 1 g IV daily for 14 days end date supposed to be 03/20/2020 --Acute renal failure likely due to ischemic ATN Now placed on hemodialysis. Nephrology recommendations appreciated s/p Permacath placement on 03/29. Vascular following --Metabolic Acidosis Resolved. Discontinue sodium bicarb and monitor --Acute hypoxic Respiratory failure. Continue oxygen supplementation --Acute toxic metabolic encephalopathy Resolved --Ruled out COVID-19 --Hypothermia Resolved --Thrombocytopenia Possibly from ongoing infection vs HIT Trend platelets HIT antibody pending Argatroban for now Nephrology oncology on board --Leukocytosis Stress induced - steroids effect vs sepsis vs leukemia? Monitor for now Hematology oncology consulted --PT/OT-back to facility --DVT prophylaxis - Argatroban for now -- Patient is full code Brief History Patient is a 79-year-old male with a past medical history of encephalopathy, hypertension, generalized weakness, diabetes type 2, chronic lipidemia, DVT, respiratory failure with hypoxia, CVA, and CKD presents from [facility] with complaint of sepsis with hypotension, alteration mental status. Off note he was treated previously here for ESBL E. coli bacteremia from UTI on 03/02/2020, admitted now due to 24 hours history of generalized weakness and confusion a ssociated with subjective fever. Patient is unable to provide history, currently with lethargy on 3 pressors. Of note ESBL bacteremia was treated with ertapenem 1 g IV once a day for 14 days until 03/20/2020 via PICC line. On arrival, temperature 90, HR 62, RR 16, O2 sat 97, BP 76/33. Initial WBC 32.2. Hemoglobin 8.9. Creatinine 5.9. Urinalysis with 182 WBCs and large leukocyte esterase. 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 03/17: Patient also found to have acute kidney injury with acute tubular necrosis, toxic metabolic encephalopathy, metabolic acidosis and hypothermia. The patient is critically ill with a poor prognosis, sepsis protocol was initia rose with an ICU admission. Patient was seen by handkerchief maker pressors were increased with also bicarb drip started. Unfortunately bicarb drip had to be held due to PICC line compatibility. A new PICC line has been inserted this morning. Admitting physician did speak with the son and discussed prognosis. also called the son this morning who informs me that the brother who is physician is coming into town and will give us further recommendation on arrival. Patient has been started on a third pressor which is epinephrine at this time. To my examination awaiting nephrology evaluation. We will proceed with giving additional 2 L of fluids and also obtain a stat echocardiogram to see what patient's cardiac level is. Based on ejection fraction patient may benefit from dobutamine. Will place BiPAP on standby and if need be and family does not opposed to continued full code we will proceed with likely intubation so the patient can be adequately volume resuscitated. -Continue empiric antibiotic coverage. ID consultation. Critical care assistance and input noted. Fluid Resuscitation As Noted above Continue Diet. Change IV access for triple-lumen PICC line. Will follow cultures. We will also obtain wound care consultation. 03/18: Continue current management, may need dialysis but not a candidate for HD due to 3 Pressors. NO Diarrhea at this time. If not improving respiratory lopez may need Intubation. 03/19: Continue supportive care, mental status showing some improvement, still on BIPAP. BP improving will stop Epi and bring down to 2 pressors. Awaiting ECHO. IF continues to have worsening Renal function, May need transfer to [facility] if unable to perform HD. Patients son updated of current clinically status. 03/20: Right femoral catheter-vas cath Placed for HD. Hypokalemia to be corrected, will give Potassium 20meq. Continue IV abx, no growth so far noted, wean pressors as tolerated, may consider adding Midodrine. WBC trending down. Prior noted Ecoli Bactermia is not noted so far on the blood culture. Continue HD as tolerated, Sodium bicarb drip due to acidosis. 03/21. He has no complaints today. Patient continues to ask when he will be discharged. Labs showed persistent hypokalemia. Continue potassium replacement. Hemoglobin 6.0. Patient will get transfused 1 unit PRBC. 03/22. Hemoglobin stable today. Vascular surgery consulted for femoral line rep lacement 11/5. Patient seen in the BiPAP. Still has diarrhea and is on vancomycin. Afebrile overnight. Labs reviewed 03/24. Patient may need permacath placement on Friday. 24-hour urine collection ordered as per renal. Monitor rectal tube output closely. PT/OT 03/25. Patient seen and evaluated this morning. He has no complaints. Needs to have right femoral line removed permacath placed on Friday. Nephrology recommendations appreciated. 24-hour urine collection yet to commence as per RN. Steroids tapered off. 03/26. Patient seen and examined at bedside this morning. Has no complaints today. Plan is to have permacath placement tomorrow. He will need to have hemodialysis chair arrangement prior to discharge. marketing manager on the case. Hematology consulted for thrombocytopenia and leukocytosis. Patient remains on argatroban but will be held temporarily for procedure. 03/27. 79-year-old male admitted 11 days ago with lethargy and altered mental status. Patient found to have septic shock, started on antibiotics and transferred to the ICU. While in the ICU, patient was on pressors. Patient subsequently had ALEJANDRO which failed to improve with conservative measures for now is on hemodialysis. Patient had a right femoral line placed for hemodialysis at that time. Stay in the ICU was complicated with pressure medication infection patient is currently on vancomycin plan ID is following. Currently improved while in the ICU and was referred to the medical floors. Patient passed a swallow evaluation will started on diet. Patient also have thrombocytopenia and heparin was discontinued. Fondaparinux not possible as patient has renal disease. Patient is currently argatroban. Hematology is consulted as patient has leukocytosis from admission. Need to rule out CML. Although ongoing issues at this time is active C. difficile infection for which the patient is on vancomycin and ID is following, patient is to have permacath placement for hemodialysis and will need hemodialysis chair to be arranged prior to discharge. Patient will be going to a facility when hemodialysis chair has been set up. Patient seen and examined at bedside this morning. Plan to have permacath placement, Called patient's son on the number provided but no answer so I left a voicemail. 03/28: PermCath placement scheduled for tomorrow, continue antibiotic, continue supportive care. Patient would need LTAC/SNF placement. 03/29: Status post PermCath placement today, renal case manager consulted for LTAC/SNF placement. Patient also need outpatient dialysis set up. 03/30: Continue ABX per ID, replete electrolytes. Potassium level 2.7 today. Dialysis as scheduled, pending placement and outpatient dialysis set up. 03/31: On hold HD per renal, cont to follow BMP and renal function, pending placement Subjective Date of service: 03/31/20 Principal diagnosis: Acute hypoxemic respiratory failure; Septic shock; Ac. encephalopathy; ALEJANDRO Interval history: Patient seen and examined Denies any shortness of breath or chest pain Discussed with RN at the bedside Continue to have loose stool, patient on rectal tube pending placement Objective - Exam Narrative Exam: GENERAL: well-developed obese -Prydeinig male lying on bed appeared to be in no discomfort. HEENT: Normocephalic. Atraumatic. No conjunctival congestion or icterus. Patient has moist mucous membranes. NECK: Supple. Trachea midline. CHEST/LUNGS: Clear to auscultated bilaterally, breathing nonlabored. No wheezes crackles or rhonchi. HEART/CARDIOVASCULAR: Regular in rate and rhythm. S1 and S2 positive. ABDOMEN: Abdomen is soft, nontender. Patient has normal bowel sounds. MUSCULOSKELETAL: Chronic venous changes bilateral lower ext NEUROLOGIC EXAM: Awake and alert SKIN: Multiple exfoliative rash, multiple pressure ulcers, detail exam as documented in skin assessment Psych: Cooperative. - Constitutional Vitals: Vital Signs - 12hr 03/31/20 03/31/20 03/31/20 04:33 08:20 08:21 Temperature 98.3 F 98.5 F Pulse Rate 66 67 70 Respiratory 18 20 Rate Blood Pressure 145/67 164/72 O2 Sat by Pulse 100 96 98 Oximetry - Labs CBC & Chem 7: 03/30/20 00:47 04/01/20 05:13 Labs: Abnormal lab results 03/30/20 03/30/20 03/30/20 Range/Units 17:27 21:21 22:49 Potassium (3.6-5.0) mmol/L Chloride (98-107) mmol/L BUN (9-20) mg/dL Creatinine (0.8-1.3) mg/dL Glucose (75-100) mg/dL POC Glucose 137 H 327 H 231 H (70-105) mg/dL Calcium (8.4-10.2) mg/dL 03/31/20 03/31/20 03/31/20 Range/Units 05:28 08:35 12:35 Potassium 2.9 L* (3.6-5.0) mmol/L Chloride 108.1 H (98-107) mmol/L BUN 40 H (9-20) mg/dL Creatinine 3.2 H (0.8-1.3) mg/dL Glucose 151 H (75-100) mg/dL POC Glucose 191 H 193 H (70-105) mg/dL Calcium 7.8 L (8.4-10.2) mg/dL HEART Score - HEART Score Troponin: Troponin T 0.047 ng/mL (0.00-0.029) H D 03/16/20 22:25
[2020-03-31] MEDS: HYDROmorphone 1 MG/1 ML INJ IV PRN (17:42)
[2020-04-01 05:42] LABS: Calcium 7.9 mg/dL (8.4-10.2)
[2020-04-01] MEDS: VANCOMYCIN 250 MG/10 ML ORAL LIQD PO SCH ×3 (06:50→17:27)
[2020-04-01] MEDS: INSULIN LISPRO 100 UNIT/ML VIAL 3 mL SUB-Q SCH ×4 (07:30→22:48)
--- NOTE | 2020-04-01 08:14 | Progress Note ---
Assessment and Plan Acute renal failure likely due to ischemic ATN Metabolic encphalopathy Metabolic acidosis Sepsis due to UTI UTI S/P Hypokalemia Anemia Plan: creatinine clearance is pending no indication for HD today KCl 20 meq BID S/P removal of vasc cath and placement of right IJ Perm-cath placement on 03/29/20 Epogen with HD for anemia Renally dose medications Strict I&O monitoring Obtain daily weights Monitor renal function closely ID evaluated pt, on Abx Subjective Date of service: 04/01/20 Principal diagnosis: Acute hypoxemic respiratory failure; Septic shock; Ac. encephalopathy; ALEJANDRO Interval history: no overnight events reported Objective - Vital Signs Vital signs: Vital Signs - 12hr 03/31/20 03/31/20 03/31/20 20:07 20:16 22:00 Temperature 97.8 F Pulse Rate 73 81 Respiratory 17 Rate Blood Pressure 138/68 141/62 O2 Sat by Pulse 99 98 95 Oximetry 03/31/20 03/31/20 04/01/20 23:00 23:24 04:19 Temperature 97.9 F 97.7 F Pulse Rate 63 63 70 Respiratory 19 18 Rate Blood Pressure 137/59 129/65 O2 Sat by Pulse 98 98 Oximetry - Lab 03/30/20 00:47 04/01/20 05:13 Most recent lab results ABG pH 7.378 pH Units (7.350-7.450) 03/20/20 16:35 ABG pCO2 38.6 mm Hg 03/20/20 16:35 ABG pO2 63.9 mm Hg (80.0-90.0) L 03/20/20 16:35 ABG HCO3 22.2 mmol/L (20.0-26.0) 03/20/20 16:35 ABG O2 Saturation 90.9 % (95.0-99.0) L 03/20/20 16:35 Calcium 7.9 mg/dL (8.4-10.2) L 04/01/20 05:13 Phosphorus 7.20 mg/dL (2.5-4.5) H 03/29/20 06:26 Magnesium 1.80 mg/dL (1.7-2.3) 03/24/20 05:19 Urine Creatinine 63.7 mg/dL (0.1-20.0) H 03/26/20 14:18 Urine Sodium 53 mmol/L 03/17/20 Unknown Urine Total Protein 328 mg/dL (5-11.8) H 03/17/20 Unknown Medications & Allergies - Medications Allergies/Adverse Reactions: Allergies diclofenac [Diclofenac] Allergy (Verified 10/05/18 08:11) Rash Home Medications: Home Medications Medication Instructions Recorded Confirmed Last Taken Type Acetaminophen [Acetaminophen TAB] 650 mg PO Q4H PRN #1 tablet 02/28/17 03/19/20 Unknown Rx Aspirin [Aspirin BABY CHEW TAB] 81 mg PO DAILY #1 tab.chew 02/28/17 03/19/20 Unknown Rx Ferrous Sulfate [Feosol 325 MG tab] 325 mg PO QDAY #1 tablet 02/28/17 03/19/20 Unknown Rx Gabapentin 300 mg PO Q8HR #1 capsule 02/28/17 03/19/20 Unknown Rx Ondansetron [Zofran INJ] 4 mg IV Q8H PRN #1 vial 02/28/17 03/19/20 Unknown Rx amLODIPine 10 mg PO DAILY #1 tablet 02/28/17 03/19/20 Unknown Rx Ertapenem [INVanz] 1 gm IV QDAY vial 03/10/20 03/19/20 Unknown Rx Active Medications: Generic Name Dose Route Start Last Admin Trade Name Freq PRN Reason Stop Dose Admin Acetaminophen 650 mg 03/19/20 18:21 03/19/20 18:39 Tylenol FEEDTUBE 650 mg Q6H PRN Administration Pain, Mild (1-3) Albuterol 2.5 mg 03/16/20 17:00 Proventil IH Q3HRT PRN Shortness Of Breath Lipase/Protease/Amylase 1 each 03/17/20 17:12 Pancrescooby Granger 10,500 Unit FEEDTUBE PRN PRN For Clogged Feeding Tube Dextrose 50 ml 03/27/20 12:23 D50w (25gm) Syringe IV Q30MIN PRN Hypoglycemia Protocol Epoetin Colin 10,000 unit 03/24/20 17:00 Procrit IV DAYLIN IDRIS Famotidine 20 mg 03/28/20 10:00 03/31/20 09:03 Pepcid PO 20 mg DAILY IDRIS Administration Heparin Sodium (Porcine) 5,000 unit 03/28/20 10:00 03/31/20 22:50 Heparin SUB-Q 5,000 unit Q12HR IDRIS Administration Hydromorphone HCl 0.25 mg 03/16/20 17:30 03/31/20 17:42 Dilaudid IV 0.25 mg Q4H PRN Administration Pain, Moderate (4-6) Hydrophilic Ointment 1 applic 03/21/20 07:50 03/21/20 16:38 Aquaphor TP 1 applic Q12HR PRN Administration DRY SKIN Sodium Chloride 100 mls @ 999 mls/hr 03/26/20 16:20 Nacl 0.9% IV DAYLIN PRN Hypotension Insulin Glargine 6 units 03/27/20 22:00 Lantus SUB-Q QHS IDRIS Insulin Human Lispro 0 unit 03/27/20 22:00 03/31/20 22:50 Humalog SUB-Q 3 unit ACHS IDRIS Administration Protocol Midodrine 10 mg 03/20/20 12:00 03/31/20 16:13 Proamatine PO 10 mg TID@0800,1200,1600 IDRIS Administration Potassium Chloride 20 meq 03/31/20 13:00 03/31/20 22:50 K-Dur PO 20 meq BID IDRIS Administration Simple Syrup 15 ml 03/17/20 17:12 Simple Syrup FEEDTUBE PRN PRN Hypoglycemia Simple Syrup 30 ml 03/17/20 17:12 Simple Syrup FEEDTUBE PRN PRN Hypoglycemia Sodium Bicarbonate 325 mg 03/17/20 17:12 Sodium Bicarbonate FEEDTUBE PRN PRN For Clogged Feeding Tube Sodium Chloride 10 ml 03/16/20 22:00 03/31/20 22:50 Sodium Chloride Flush Syringe 10 Ml IV 10 ml BID IDRIS Administration Sodium Chloride 10 ml 03/16/20 17:00 Sodium Chloride Flush Syringe 10 Ml IV PRN PRN LINE FLUSH Vancomycin HCl 250 mg 03/20/20 12:00 04/01/20 06:50 Vancomycin Po PO 04/03/20 06:01 250 mg Q6HR IDRIS Administration
[2020-04-01] MEDS: FAMOTIDINE 20 MG TAB PO SCH (09:10)
[2020-04-01] MEDS: POTASSIUM CHLORIDE ER 20 MEQ TAB PO SCH ×2 (09:10→22:48)
[2020-04-01] MEDS: MIDODRINE 5 MG TAB PO SCH ×3 (09:10→17:27)
[2020-04-01] MEDS: HYDROmorphone 1 MG/1 ML INJ IV PRN ×2 (09:11→17:27)
[2020-04-01] MEDS: HEPARIN 5,000 UNIT/1 ML VIAL SUB-Q SCH ×2 (09:11→22:46)
--- NOTE | 2020-04-01 12:42 | Progress Note ---
Assessment and Plan --Septic shock Due to C. difficile infection, this has resolved --C. difficile infection Continue p.o. vancomycin 250 mg every 6 hours for 14 days ID recommendations appreciated --Anemia OF Chronic Disease Monitor hemoglobin Transfused as needed to hemoglobin 7 --Electrolyte abnormalities-hypokalemia, hypomagnesemia-replete as needed --Recent ESBL E. coli bacteremia patient was discharged on ertapenem 1 g IV daily for 14 days end date supposed to be 03/20/2020 --Acute renal failure likely due to ischemic ATN Now placed on hemodialysis. Nephrology recommendations appreciated s/p Permacath placement on 03/29. Vascular following --Metabolic Acidosis Resolved. Discontinue sodium bicarb and monitor --Acute hypoxic Respiratory failure. Continue oxygen supplementation --Acute toxic metabolic encephalopathy Resolved --Ruled out COVID-19 --Hypothermia Resolved --Thrombocytopenia Possibly from ongoing infection vs HIT Trend platelets HIT antibody pending Argatroban for now Nephrology oncology on board --Leukocytosis Stress induced - steroids effect vs sepsis vs leukemia? Monitor for now Hematology oncology consulted --PT/OT-back to facility --DVT prophylaxis - Argatroban for now -- Patient is full code Brief History Patient is a 79-year-old male with a past medical history of encephalopathy, hypertension, generalized weakness, diabetes type 2, chronic lipidemia, DVT, respiratory failure with hypoxia, CVA, and CKD [facility] with complaint of sepsis with hypotension, alteration mental status. Off note he was treated previously here for ESBL E. coli bacteremia from UTI on 03/02/2020, admitted now due to 24 hours history of generalized weakness and confusion a ssociated with subjective fever. Patient is unable to provide history, currently with lethargy on 3 pressors. Of note ESBL bacteremia was treated with ertapenem 1 g IV once a day for 14 days until 03/20/2020 via PICC line. On arrival, temperature 90, HR 62, RR 16, O2 sat 97, BP 76/33. Initial WBC 32.2. Hemoglobin 8.9. Creatinine 5.9. Urinalysis with 182 WBCs and large leukocyte esterase. 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 03/17: Patient also found to have acute kidney injury with acute tubular necrosis, toxic metabolic encephalopathy, metabolic acidosis and hypothermia. The patient is critically ill with a poor prognosis, sepsis protocol was initia rose with an ICU admission. Patient was seen by media analyst pressors were increased with also bicarb drip started. Unfortunately bicarb drip had to be held due to PICC line compatibility. A new PICC line has been inserted this morning. Admitting physician did speak with the son and discussed prognosis. also called the son this morning who informs me that the brother who is physician is coming into town and will give us further recommendation on arrival. Patient has been started on a third pressor which is epinephrine at this time. To my examination awaiting nephrology evaluation. We will proceed with giving additional 2 L of fluids and also obtain a stat echocardiogram to see what patient's cardiac level is. Based on ejection fraction patient may benefit from dobutamine. Will place BiPAP on standby and if need be and family does not opposed to continued full code we will proceed with likely intubation so the patient can be adequately volume resuscitated. -Continue empiric antibiotic coverage. ID consultation. Critical care assistance and input noted. Fluid Resuscitation As Noted above Continue Diet. Change IV access for triple-lumen PICC line. Will follow cultures. We will also obtain wound care consultation. 03/18: Continue current management, may need dialysis but not a candidate for HD due to 3 Pressors. NO Diarrhea at this time. If not improving respiratory lopez may need Intubation. 03/19: Continue supportive care, mental status showing some improvement, still on BIPAP. BP improving will stop Epi and bring down to 2 pressors. Awaiting ECHO. IF continues to have worsening Renal function, May need transfer to [facility] if unable to perform HD. Patients son updated of current clinically status. 03/20: Right femoral catheter-vas cath Placed for HD. Hypokalemia to be corrected, will give Potassium 20meq. Continue IV abx, no growth so far noted, wean pressors as tolerated, may consider adding Midodrine. WBC trending down. Prior noted Ecoli Bactermia is not noted so far on the blood culture. Continue HD as tolerated, Sodium bicarb drip due to acidosis. 03/21. He has no complaints today. Patient continues to ask when he will be discharged. Labs showed persistent hypokalemia. Continue potassium replacement. Hemoglobin 6.0. Patient will get transfused 1 unit PRBC. 03/22. Hemoglobin stable today. Vascular surgery consulted for femoral line rep lacement 11/5. Patient seen in the BiPAP. Still has diarrhea and is on vancomycin. Afebrile overnight. Labs reviewed 03/24. Patient may need permacath placement on Friday. 24-hour urine collection ordered as per renal. Monitor rectal tube output closely. PT/OT 03/25. Patient seen and evaluated this morning. He has no complaints. Needs to have right femoral line removed permacath placed on Friday. Nephrology recommendations appreciated. 24-hour urine collection yet to commence as per RN. Steroids tapered off. 03/26. Patient seen and examined at bedside this morning. Has no complaints today. Plan is to have permacath placement tomorrow. He will need to have hemodialysis chair arrangement prior to discharge. legal services manager on the case. Hematology consulted for thrombocytopenia and leukocytosis. Patient remains on argatroban but will be held temporarily for procedure. 03/27. 79-year-old male admitted 11 days ago with lethargy and altered mental status. Patient found to have septic shock, started on antibiotics and transferred to the ICU. While in the ICU, patient was on pressors. Patient subsequently had ALEJANDRO which failed to improve with conservative measures for now is on hemodialysis. Patient had a right femoral line placed for hemodialysis at that time. Stay in the ICU was complicated with pressure medication infection patient is currently on vancomycin plan ID is following. Currently improved while in the ICU and was referred to the medical floors. Patient passed a swallow evaluation will started on diet. Patient also have thrombocytopenia and heparin was discontinued. Fondaparinux not possible as patient has renal disease. Patient is currently argatroban. Hematology is consulted as patient has leukocytosis from admission. Need to rule out CML. Although ongoing issues at this time is active C. difficile infection for which the patient is on vancomycin and ID is following, patient is to have permacath placement for hemodialysis and will need hemodialysis chair to be arranged prior to discharge. Patient will be going to a facility when hemodialysis chair has been set up. Patient seen and examined at bedside this morning. Plan to have permacath placement, Called patient's son on the number provided but no answer so I left a voicemail. 03/28: PermCath placement scheduled for tomorrow, continue antibiotic, continue supportive care. Patient would need LTAC/SNF placement. 03/29: Status post PermCath placement today, foster care case manager consulted for LTAC/SNF placement. Patient also need outpatient dialysis set up. 03/30: Continue ABX per ID, replete electrolytes. Potassium level 2.7 today. Dialysis as scheduled, pending placement and outpatient dialysis set up. 03/31: On hold HD per renal, cont to follow BMP and renal function, pending placement 04/01: monitor off HD, replete electrolytes as needed. placement pending Subjective Date of service: 04/01/20 Principal diagnosis: Acute hypoxemic respiratory failure; Septic shock; Ac. encephalopathy; ALEJANDRO Interval history: Patient seen and examined Denies any shortness of breath or chest pain Discussed with RN at the bedside Continue to have loose stool, patient on rectal tube pending placement Objective - Exam Narrative Exam: GENERAL: well-developed obese -[place] male lying on bed appeared to be in no discomfort. HEENT: Normocephalic. Atraumatic. No conjunctival congestion or icterus. Patient has moist mucous membranes. NECK: Supple. Trachea midline. CHEST/LUNGS: Clear to auscultated bilaterally, breathing nonlabored. No wheezes crackles or rhonchi. HEART/CARDIOVASCULAR: Regular in rate and rhythm. S1 and S2 positive. ABDOMEN: Abdomen is soft, nontender. Patient has normal bowel sounds. MUSCULOSKELETAL: Chronic venous changes bilateral lower ext. LUE welling NEUROLOGIC EXAM: Awake and alert SKIN: Multiple exfoliative rash, chronic skin color discoloration Psych: Cooperative. - Constitutional Vitals: Vital Signs - 12hr 04/01/20 04/01/20 04/01/20 04:19 08:31 08:33 Temperature 97.7 F 98.6 F 97.9 F Pulse Rate 70 70 70 Respiratory 18 20 20 Rate Blood Pressure 129/65 148/64 Blood Pressure 148/64 [Right] O2 Sat by Pulse 98 99 99 Oximetry 04/01/20 11:08 Temperature 97.9 F Pulse Rate 77 Respiratory 20 Rate Blood Pressure 148/79 Blood Pressure [Right] O2 Sat by Pulse 95 Oximetry - Labs CBC & Chem 7: 04/03/20 05:07 04/03/20 05:07 Labs: Abnormal lab results 03/31/20 04/01/20 04/01/20 Range/Units 22:32 05:13 08:44 Chloride 109.2 H (98-107) mmol/L BUN 45 H (9-20) mg/dL Creatinine 3.3 H (0.8-1.3) mg/dL Glucose 110 H (75-100) mg/dL POC Glucose 182 H 116 H (70-105) mg/dL Calcium 7.9 L (8.4-10.2) mg/dL 04/01/20 Range/Units 11:22 Chloride (98-107) mmol/L BUN (9-20) mg/dL Creatinine (0.8-1.3) mg/dL Glucose (75-100) mg/dL POC Glucose 137 H (70-105) mg/dL Calcium (8.4-10.2) mg/dL HEART Score - HEART Score Troponin: Troponin T 0.047 ng/mL (0.00-0.029) H D 03/16/20 22:25
--- NOTE | 2020-04-01 16:36 | Progress Note ---
Assessment and Plan Acute hypoxemic respiratory failure Septic shock Pulmonary HTN Acute Toxic metabolic encephalopathy Acute kidney injury (ALEJANDRO) with acute tubular necrosis (ATN) PUI COVID-19 Sacral decubitus ulcer h/o VTE Hypothermia Obesity Adult FTT - wean supplemental oxygen for target O2 sat's > 90% acutely - prn CXR' & ABG's at this point - prn analgesia per pain score - BIPAP scheduled qhs with prn daytime use - continue HD/UF per nephrology for toxin and volume clearance - continue care as below otherwise; - 2D ECHO shows pulm HTN with septal flattening (outpatient w/up) - continue aspiration precautions (HOB >/= 40 degrees) - conservative fluid strategies henceforth - complete antiinfective's per ID rec's (IV vanc stopped) - accuchecks with glycemic control per SSI for target blood glucose of < 180 mg/dL; avoid hypoglycemia - bronchodilators with pulmonary hygiene per RT - avoid nephrotoxins, renally dose all medications - avoid benzodiazepine's, reduce the possibility of delirium - Maintenance of sleep-wake cycle, avoid delirium - G.I. & VTE prophylaxis - PT/OT/ROM exercises - continue mobility protocols for pressure ulcer prophylaxis - Monitor hemodynamics closely - continue other care per attending / other consultants - discharge planning ongoing concurrently .... Re-evaluate in am & prn CONDITION: FAIR PROGNOSIS: GUARDED CODE STATUS: FULL CODE Subjective Date of service: 04/01/20 Principal diagnosis: Acute hypoxemic respiratory failure; Septic shock; Ac. encephalopathy; ALEJANDRO Interval history: Patient is seen today for: Acute hypoxemic respiratory failure; Septic shock; Acute Toxic metabolic encephalopathy; ALEJANDRO; PUI COVID-19; Sacral decubitus ulcer; h/o VTE; Hypothermia; Obesity; Adult FTT Seen and examined at bedside; 24hour events reviewed; nursing and respiratory care staff consulted; no adverse overnight events reported to me; resting peacefully in bed; Objective Vital Signs - 12hr 04/01/20 04/01/20 04/01/20 08:31 08:33 11:08 Temperature 98.6 F 97.9 F 97.9 F Pulse Rate 70 70 77 Respiratory 20 20 20 Rate Blood Pressure 148/64 148/79 Blood Pressure 148/64 [Right] O2 Sat by Pulse 99 99 95 Oximetry Constitutional: alert, appears uncomfortable, other (elderly obese male with normal respiratory effort at rest) Eyes: non-icteric ENT: oropharynx dry Neck: supple, no JVD, other (large neck circumference) Effort: mildly labored Ascultation: Bilateral: clear, diminished breath sounds, rhonchi Percussion: Bilateral: not dull Cardiovascular: regular rate and rhythm Gastrointestinal: normoactive bowel sounds, soft, non-tender, non-distended (protuberant) Integumentary: rash (Generalized skin flaking/with superficial skin sloughing without erythema or warmth on chest wall), decubitus ulcer (see RN/WCN notes for details) Extremities: no cyanosis, pulses normal, no ischemia or petechiae, other (Patient has stasis dermatitis and wounds on both legs.) Neurologic: non-focal exam (grossly), pupils equal and round, CN II-XII normal Psychiatric: anxious CBC and BMP: 03/30/20 00:47 04/01/20 05:13 ABG, PT/INR, D-dimer: ABG ABG pH 7.378 pH Units (7.350-7.450) 03/20/20 16:35 POC ABG pCO2 37.3 mmHg (32.0-48.0) 03/18/20 12:14 ABG pCO2 38.6 mm Hg 03/20/20 16:35 POC ABG pO2 67.4 mmHg (83-108) L 03/18/20 12:14 ABG pO2 63.9 mm Hg (80.0-90.0) L 03/20/20 16:35 POC ABG HCO3 14.1 03/18/20 12:14 ABG O2 Saturation 90.9 % (95.0-99.0) L 03/20/20 16:35 PT/INR, D-dimer PT 14.3 Sec. (12.2-14.9) 03/22/20 16:30 INR 1.09 (0.87-1.13) 03/22/20 16:30 Abnormal lab findings: Abnormal Labs 03/16/20 03/16/20 03/16/20 14:22 14:22 14:23 WBC 32.2 H RBC 2.93 L Hgb 8.9 L Hct 28.2 L MCV 96 H MCHC RDW 18.1 H Plt Count Lymph % (Auto) Lymph # (Auto) [place] # (Auto) Baso # (Auto) Seg Neutrophils % Seg Neuts % (Manual) 82.0 H Lymphocytes % (Manual) 10.0 L Nucleated RBC % 3.0 H Seg Neutrophils # Seg Neutrophils # Man 26.4 H Lymphocytes # (Manual) Monocytes # (Manual) 1.9 H PT INR APTT ABG pH POC ABG pO2 ABG pO2 ABG HCO3 ABG O2 Saturation ABG Base Excess ABG Hemoglobin ABG Potassium ABG Chloride ABG Glucose Oxyhemoglobin Sodium Potassium 3.3 L Chloride 108.9 H Carbon Dioxide 12 L BUN 59 H Creatinine 5.9 H Glucose 142 H POC Glucose Calcium 7.7 L Phosphorus Magnesium Alkaline Phosphatase 224 H Lactate Dehydrogenase Total Creatine Kinase Troponin T 0.033 H C-Reactive Protein Total Protein 5.4 L Albumin 1.9 L LDL Cholesterol Direct 35 L HDL Cholesterol 37 L Arterial Blood Glucose Arterial Blood Ionized Calcium Urine WBC (Auto) Urine Creatinine Ur Creatinine 24 Hour Urine Total Protein Crossmatch 03/16/20 03/16/20 03/16/20 14:27 19:50 21:15 WBC RBC Hgb Hct MCV MCHC RDW Plt Count Lymph % (Auto) Lymph # (Auto) [place] # (Auto) Baso # (Auto) Seg Neutrophils % Seg Neuts % (Manual) Lymphocytes % (Manual) Nucleated RBC % Seg Neutrophils # Seg Neutrophils # Man Lymphocytes # (Manual) Monocytes # (Manual) PT 17.2 H INR 1.37 H APTT 51.3 H ABG pH POC ABG pO2 ABG pO2 ABG HCO3 ABG O2 Saturation ABG Base Excess ABG Hemoglobin ABG Potassium ABG Chloride ABG Glucose Oxyhemoglobin Sodium Potassium Chloride Carbon Dioxide BUN Creatinine Glucose POC Glucose Calcium Phosphorus Magnesium Alkaline Phosphatase Lactate Dehydrogenase Total Creatine Kinase Troponin T 0.031 H C-Reactive Protein Total Protein Albumin LDL Cholesterol Direct HDL Cholesterol Arterial Blood Glucose Arterial Blood Ionized Calcium Urine WBC (Auto) > 182.0 H Urine Creatinine Ur Creatinine 24 Hour Urine Total Protein Crossmatch 03/16/20 03/17/20 03/17/20 22:25 11:13 11:13 WBC 34.4 H RBC 2.60 L Hgb 7.8 L Hct 25.2 L MCV 97 H MCHC 31 L RDW 18.7 H Plt Count Lymph % (Auto) Lymph # (Auto) [place] # (Auto) Baso # (Auto) Seg Neutrophils % Seg Neuts % (Manual) 88.0 H Lymphocytes % (Manual) 1.0 L Nucleated RBC % 13.0 H Seg Neutrophils # Seg Neutrophils # Man 30.3 H Lymphocytes # (Manual) 0.3 L Monocytes # (Manual) PT INR APTT ABG pH POC ABG pO2 ABG pO2 ABG HCO3 ABG O2 Saturation ABG Base Excess ABG Hemoglobin ABG Potassium ABG Chloride ABG Glucose Oxyhemoglobin Sodium Potassium 3.3 L Chloride 108.5 H Carbon Dioxide 16 L BUN 57 H Creatinine 5.5 H Glucose 325 H POC Glucose Calcium 7.0 L Phosphorus Magnesium Alkaline Phosphatase Lactate Dehydrogenase Total Creatine Kinase Troponin T 0.047 H D C-Reactive Protein Total Protein Albumin LDL Cholesterol Direct HDL Cholesterol Arterial Blood Glucose Arterial Blood Ionized Calcium Urine WBC (Auto) Urine Creatinine Ur Creatinine 24 Hour Urine Total Protein Crossmatch 03/17/20 03/17/20 03/17/20 11:13 11:40 Unknown WBC RBC Hgb Hct MCV MCHC RDW Plt Count Lymph % (Auto) Lymph # (Auto) [place] # (Auto) Baso # (Auto) Seg Neutrophils % Seg Neuts % (Manual) Lymphocytes % (Manual) Nucleated RBC % Seg Neutrophils # Seg Neutrophils # Man Lymphocytes # (Manual) Monocytes # (Manual) PT INR APTT ABG pH 7.229 L POC ABG pO2 ABG pO2 98.3 H ABG HCO3 14.6 L ABG O2 Saturation ABG Base Excess -12.0 L ABG Hemoglobin 8.9 L ABG Potassium ABG Chloride ABG Glucose Oxyhemoglobin Sodium Potassium Chloride Carbon Dioxide BUN Creatinine Glucose POC Glucose Calcium Phosphorus Magnesium Alkaline Phosphatase Lactate Dehydrogenase Total Creatine Kinase 373 H Troponin T C-Reactive Protein Total Protein Albumin LDL Cholesterol Direct HDL Cholesterol Arterial Blood Glucose Arterial Blood Ionized Calcium Urine WBC (Auto) > 182.0 H Urine Creatinine Ur Creatinine 24 Hour Urine Total Protein Crossmatch 03/17/20 03/18/20 03/18/20 Unknown 04:40 04:40 WBC 32.0 H RBC 2.56 L Hgb 7.9 L Hct 24.7 L MCV 96 H MCHC RDW 18.2 H Plt Count Lymph % (Auto) Lymph # (Auto) [place] # (Auto) Baso # (Auto) Seg Neutrophils % Seg Neuts % (Manual) Lymphocytes % (Manual) Nucleated RBC % Seg Neutrophils # Seg Neutrophils # Man Lymphocytes # (Manual) Monocytes # (Manual) PT INR APTT ABG pH POC ABG pO2 ABG pO2 ABG HCO3 ABG O2 Saturation ABG Base Excess ABG Hemoglobin ABG Potassium ABG Chloride ABG Glucose Oxyhemoglobin Sodium Potassium 2.7 L* Chloride 111.8 H Carbon Dioxide 12 L BUN 56 H Creatinine 4.6 H Glucose 347 H POC Glucose Calcium 6.7 L Phosphorus 5.40 H Magnesium Alkaline Phosphatase Lactate Dehydrogenase Total Creatine Kinase Troponin T C-Reactive Protein Total Protein Albumin LDL Cholesterol Direct HDL Cholesterol Arterial Blood Glucose Arterial Blood Ionized Calcium Urine WBC (Auto) Urine Creatinine 139.3 H Ur Creatinine 24 Hour Urine Total Protein 328 H Crossmatch 03/18/20 03/18/20 03/18/20 04:40 04:48 12:14 WBC RBC Hgb Hct MCV MCHC RDW Plt Count Lymph % (Auto) Lymph # (Auto) [place] # (Auto) Baso # (Auto) Seg Neutrophils % Seg Neuts % (Manual) Lymphocytes % (Manual) Nucleated RBC % Seg Neutrophils # Seg Neutrophils # Man Lymphocytes # (Manual) Monocytes # (Manual) PT INR APTT ABG pH 7.230 L 7.196 L POC ABG pO2 67.4 L ABG pO2 91.6 H ABG HCO3 13.7 L ABG O2 Saturation ABG Base Excess -12.8 L ABG Hemoglobin 9.2 L 9.9 L ABG Potassium 3.3 L ABG Chloride 112.0 H ABG Glucose 355 H Oxyhemoglobin 94.8 L Sodium Potassium Chloride Carbon Dioxide BUN Creatinine Glucose POC Glucose Calcium Phosphorus Magnesium 1.40 L Alkaline Phosphatase Lactate Dehydrogenase Total Creatine Kinase Troponin T C-Reactive Protein Total Protein Albumin LDL Cholesterol Direct HDL Cholesterol Arterial Blood Glucose 355 H Arterial Blood Ionized Calcium 4.5 L Urine WBC (Auto) Urine Creatinine Ur Creatinine 24 Hour Urine Total Protein Crossmatch 03/18/20 03/18/20 03/18/20 13:17 13:32 19:15 WBC RBC Hgb Hct MCV MCHC RDW Plt Count Lymph % (Auto) Lymph # (Auto) [place] # (Auto) Baso # (Auto) Seg Neutrophils % Seg Neuts % (Manual) Lymphocytes % (Manual) Nucleated RBC % Seg Neutrophils # Seg Neutrophils # Man Lymphocytes # (Manual) Monocytes # (Manual) PT INR APTT ABG pH POC ABG pO2 ABG pO2 ABG HCO3 ABG O2 Saturation ABG Base Excess ABG Hemoglobin ABG Potassium ABG Chloride ABG Glucose Oxyhemoglobin Sodium Potassium 3.0 L 3.4 L Chloride 107.2 H Carbon Dioxide 14 L 13 L BUN 59 H 67 H Creatinine 4.8 H 5.1 H Glucose 341 H 371 H POC Glucose 394 H Calcium 7.0 L 7.8 L Phosphorus Magnesium Alkaline Phosphatase Lactate Dehydrogenase Total Creatine Kinase Troponin T C-Reactive Protein Total Protein Albumin LDL Cholesterol Direct HDL Cholesterol Arterial Blood Glucose Arterial Blood Ionized Calcium Urine WBC (Auto) Urine Creatinine Ur Creatinine 24 Hour Urine Total Protein Crossmatch 03/18/20 03/18/20 03/19/20 19:21 23:00 01:32 EST WBC RBC Hgb Hct MCV MCHC RDW Plt Count Lymph % (Auto) Lymph # (Auto) [place] # (Auto) Baso # (Auto) Seg Neutrophils % Seg Neuts % (Manual) Lymphocytes % (Manual) Nucleated RBC % Seg Neutrophils # Seg Neutrophils # Man Lymphocytes # (Manual) Monocytes # (Manual) PT INR APTT ABG pH POC ABG pO2 ABG pO2 ABG HCO3 ABG O2 Saturation ABG Base Excess ABG Hemoglobin ABG Potassium ABG Chloride ABG Glucose Oxyhemoglobin Sodium Potassium Chloride Carbon Dioxide BUN Creatinine Glucose POC Glucose 453 H 360 H 338 H Calcium Phosphorus Magnesium Alkaline Phosphatase Lactate Dehydrogenase Total Creatine Kinase Troponin T C-Reactive Protein Total Protein Albumin LDL Cholesterol Direct HDL Cholesterol Arterial Blood Glucose Arterial Blood Ionized Calcium Urine WBC (Auto) Urine Creatinine Ur Creatinine 24 Hour Urine Total Protein Crossmatch 03/19/20 03/19/20 03/19/20 04:10 05:10 05:10 WBC 25.8 H RBC 3.61 L Hgb 10.9 L D Hct MCV 100 H MCHC 30 L RDW 19.1 H Plt Count Lymph % (Auto) Lymph # (Auto) [place] # (Auto) Baso # (Auto) Seg Neutrophils % Seg Neuts % (Manual) Lymphocytes % (Manual) Nucleated RBC % Seg Neutrophils # Seg Neutrophils # Man Lymphocytes # (Manual) Monocytes # (Manual) PT INR APTT ABG pH 7.309 L POC ABG pO2 ABG pO2 69.4 L ABG HCO3 17.9 L ABG O2 Saturation 92.4 L ABG Base Excess -7.6 L ABG Hemoglobin 8.1 L ABG Potassium ABG Chloride ABG Glucose Oxyhemoglobin 90.8 L Sodium Potassium Chloride Carbon Dioxide BUN Creatinine Glucose POC Glucose Calcium Phosphorus 5.60 H Magnesium Alkaline Phosphatase Lactate Dehydrogenase Total Creatine Kinase Troponin T C-Reactive Protein Total Protein Albumin LDL Cholesterol Direct HDL Cholesterol Arterial Blood Glucose Arterial Blood Ionized Calcium Urine WBC (Auto) Urine Creatinine Ur Creatinine 24 Hour Urine Total Protein Crossmatch 03/19/20 03/19/20 03/19/20 10:00 11:22 Unknown WBC RBC Hgb Hct MCV MCHC RDW Plt Count Lymph % (Auto) Lymph # (Auto) [place] # (Auto) Baso # (Auto) Seg Neutrophils % Seg Neuts % (Manual) Lymphocytes % (Manual) Nucleated RBC % Seg Neutrophils # Seg Neutrophils # Man Lymphocytes # (Manual) Monocytes # (Manual) PT 15.3 H INR 1.18 H APTT ABG pH POC ABG pO2 ABG pO2 ABG HCO3 ABG O2 Saturation ABG Base Excess ABG Hemoglobin ABG Potassium ABG Chloride ABG Glucose Oxyhemoglobin Sodium Potassium 3.0 L Chloride Carbon Dioxide BUN 69 H Creatinine 5.4 H Glucose 250 H POC Glucose 274 H Calcium 7.9 L Phosphorus Magnesium Alkaline Phosphatase Lactate Dehydrogenase Total Creatine Kinase Troponin T C-Reactive Protein Total Protein Albumin LDL Cholesterol Direct HDL Cholesterol Arterial Blood Glucose Arterial Blood Ionized Calcium Urine WBC (Auto) Urine Creatinine Ur Creatinine 24 Hour Urine Total Protein Crossmatch 03/20/20 03/20/20 03/20/20 01:56 05:22 06:35 WBC 27.5 H RBC 2.57 L Hgb 7.9 L D Hct 23.3 L D MCV MCHC RDW 17.7 H Plt Count Lymph % (Auto) Lymph # (Auto) [place] # (Auto) Baso # (Auto) Seg Neutrophils % Seg Neuts % (Manual) Lymphocytes % (Manual) Nucleated RBC % Seg Neutrophils # Seg Neutrophils # Man Lymphocytes # (Manual) Monocytes # (Manual) PT INR APTT ABG pH POC ABG pO2 ABG pO2 ABG HCO3 ABG O2 Saturation ABG Base Excess ABG Hemoglobin ABG Potassium ABG Chloride ABG Glucose Oxyhemoglobin Sodium Potassium Chloride Carbon Dioxide BUN Creatinine Glucose POC Glucose 145 H 181 H Calcium Phosphorus Magnesium Alkaline Phosphatase Lactate Dehydrogenase Total Creatine Kinase Troponin T C-Reactive Protein Total Protein Albumin LDL Cholesterol Direct HDL Cholesterol Arterial Blood Glucose Arterial Blood Ionized Calcium Urine WBC (Auto) Urine Creatinine Ur Creatinine 24 Hour Urine Total Protein Crossmatch 03/20/20 03/20/20 03/20/20 06:35 12:10 13:30 WBC RBC Hgb Hct MCV MCHC RDW Plt Count Lymph % (Auto) Lymph # (Auto) [place] # (Auto) Baso # (Auto) Seg Neutrophils % Seg Neuts % (Manual) Lymphocytes % (Manual) Nucleated RBC % Seg Neutrophils # Seg Neutrophils # Man Lymphocytes # (Manual) Monocytes # (Manual) PT INR APTT ABG pH POC ABG pO2 ABG pO2 ABG HCO3 ABG O2 Saturation ABG Base Excess ABG Hemoglobin ABG Potassium ABG Chloride ABG Glucose Oxyhemoglobin Sodium Potassium 2.9 L* Chloride Carbon Dioxide BUN 69 H Creatinine 5.1 H Glucose 146 H POC Glucose 164 H Calcium 8.2 L Phosphorus 5.40 H Magnesium Alkaline Phosphatase Lactate Dehydrogenase Total Creatine Kinase Troponin T C-Reactive Protein Total Protein Albumin LDL Cholesterol Direct HDL Cholesterol Arterial Blood Glucose Arterial Blood Ionized Calcium Urine WBC (Auto) 153.0 H Urine Creatinine Ur Creatinine 24 Hour Urine Total Protein Crossmatch 03/20/20 03/20/20 03/20/20 16:00 16:35 17:23 WBC RBC Hgb Hct MCV MCHC RDW Plt Count Lymph % (Auto) Lymph # (Auto) [place] # (Auto) Baso # (Auto) Seg Neutrophils % Seg Neuts % (Manual) Lymphocytes % (Manual) Nucleated RBC % Seg Neutrophils # Seg Neutrophils # Man Lymphocytes # (Manual) Monocytes # (Manual) PT INR APTT ABG pH POC ABG pO2 ABG pO2 63.9 L ABG HCO3 ABG O2 Saturation 90.9 L ABG Base Excess -2.6 L ABG Hemoglobin 9.5 L ABG Potassium ABG Chloride ABG Glucose Oxyhemoglobin 89.3 L Sodium 146 H Potassium 3.3 L Chloride Carbon Dioxide BUN 72 H Creatinine 5.1 H Glucose 150 H POC Glucose 191 H Calcium 8.2 L Phosphorus Magnesium Alkaline Phosphatase Lactate Dehydrogenase Total Creatine Kinase Troponin T C-Reactive Protein Total Protein Albumin LDL Cholesterol Direct HDL Cholesterol Arterial Blood Glucose Arterial Blood Ionized Calcium Urine WBC (Auto) Urine Creatinine Ur Creatinine 24 Hour Urine Total Protein Crossmatch 03/21/20 03/21/20 03/21/20 00:48 03:55 03:55 WBC 22.4 H RBC 2.06 L Hgb 6.3 L Hct 19.2 L* MCV MCHC RDW 17.7 H Plt Count 86 L Lymph % (Auto) Lymph # (Auto) [place] # (Auto) Baso # (Auto) Seg Neutrophils % Seg Neuts % (Manual) Lymphocytes % (Manual) Nucleated RBC % Seg Neutrophils # Seg Neutrophils # Man Lymphocytes # (Manual) Monocytes # (Manual) PT INR APTT ABG pH POC ABG pO2 ABG pO2 ABG HCO3 ABG O2 Saturation ABG Base Excess ABG Hemoglobin ABG Potassium ABG Chloride ABG Glucose Oxyhemoglobin Sodium 148 H Potassium 2.8 L* Chloride 108.2 H Carbon Dioxide BUN 52 H Creatinine 3.8 H Glucose 130 H POC Glucose 158 H Calcium 7.6 L Phosphorus Magnesium Alkaline Phosphatase Lactate Dehydrogenase Total Creatine Kinase Troponin T C-Reactive Protein Total Protein Albumin LDL Cholesterol Direct HDL Cholesterol Arterial Blood Glucose Arterial Blood Ionized Calcium Urine WBC (Auto) Urine Creatinine Ur Creatinine 24 Hour Urine Total Protein Crossmatch 03/21/20 03/21/20 03/21/20 05:37 06:43 09:15 WBC RBC Hgb Hct MCV MCHC RDW Plt Count Lymph % (Auto) Lymph # (Auto) [place] # (Auto) Baso # (Auto) Seg Neutrophils % Seg Neuts % (Manual) Lymphocytes % (Manual) Nucleated RBC % Seg Neutrophils # Seg Neutrophils # Man Lymphocytes # (Manual) Monocytes # (Manual) PT INR APTT ABG pH POC ABG pO2 ABG pO2 ABG HCO3 ABG O2 Saturation ABG Base Excess ABG Hemoglobin ABG Potassium ABG Chloride ABG Glucose Oxyhemoglobin Sodium Potassium 3.5 L D Chloride Carbon Dioxide BUN 56 H Creatinine 4.3 H Glucose 104 H POC Glucose 159 H Calcium Phosphorus Magnesium Alkaline Phosphatase Lactate Dehydrogenase Total Creatine Kinase Troponin T C-Reactive Protein Total Protein Albumin LDL Cholesterol Direct HDL Cholesterol Arterial Blood Glucose Arterial Blood Ionized Calcium Urine WBC (Auto) Urine Creatinine Ur Creatinine 24 Hour Urine Total Protein Crossmatch See Detail 03/21/20 03/21/20 03/22/20 12:55 17:26 00:16 WBC RBC Hgb Hct MCV MCHC RDW Plt Count Lymph % (Auto) Lymph # (Auto) [place] # (Auto) Baso # (Auto) Seg Neutrophils % Seg Neuts % (Manual) Lymphocytes % (Manual) Nucleated RBC % Seg Neutrophils # Seg Neutrophils # Man Lymphocytes # (Manual) Monocytes # (Manual) PT INR APTT ABG pH POC ABG pO2 ABG pO2 ABG HCO3 ABG O2 Saturation ABG Base Excess ABG Hemoglobin ABG Potassium ABG Chloride ABG Glucose Oxyhemoglobin Sodium Potassium Chloride Carbon Dioxide BUN Creatinine Glucose POC Glucose 157 H 128 H 148 H Calcium Phosphorus Magnesium Alkaline Phosphatase Lactate Dehydrogenase Total Creatine Kinase Troponin T C-Reactive Protein Total Protein Albumin LDL Cholesterol Direct HDL Cholesterol Arterial Blood Glucose Arterial Blood Ionized Calcium Urine WBC (Auto) Urine Creatinine Ur Creatinine 24 Hour Urine Total Protein Crossmatch 03/22/20 03/22/20 03/22/20 04:00 04:43 05:00 WBC 26.2 H RBC 3.16 L Hgb 9.6 L D Hct 29.1 L D MCV MCHC RDW 18.2 H Plt Count 86 L Lymph % (Auto) Lymph # (Auto) [place] # (Auto) Baso # (Auto) Seg Neutrophils % Seg Neuts % (Manual) Lymphocytes % (Manual) Nucleated RBC % Seg Neutrophils # Seg Neutrophils # Man Lymphocytes # (Manual) Monocytes # (Manual) PT INR APTT ABG pH POC ABG pO2 ABG pO2 ABG HCO3 ABG O2 Saturation ABG Base Excess ABG Hemoglobin ABG Potassium ABG Chloride ABG Glucose Oxyhemoglobin Sodium Potassium 3.5 L Chloride Carbon Dioxide BUN 47 H Creatinine 3.3 H Glucose 171 H POC Glucose Calcium 8.3 L Phosphorus Magnesium 1.60 L Alkaline Phosphatase Lactate Dehydrogenase Total Creatine Kinase Troponin T C-Reactive Protein Total Protein Albumin LDL Cholesterol Direct HDL Cholesterol Arterial Blood Glucose Arterial Blood Ionized Calcium Urine WBC (Auto) Urine Creatinine Ur Creatinine 24 Hour Urine Total Protein Crossmatch 03/22/20 03/22/20 03/22/20 05:41 12:18 17:29 WBC RBC Hgb Hct MCV MCHC RDW Plt Count Lymph % (Auto) Lymph # (Auto) [place] # (Auto) Baso # (Auto) Seg Neutrophils % Seg Neuts % (Manual) Lymphocytes % (Manual) Nucleated RBC % Seg Neutrophils # Seg Neutrophils # Man Lymphocytes # (Manual) Monocytes # (Manual) PT INR APTT ABG pH POC ABG pO2 ABG pO2 ABG HCO3 ABG O2 Saturation ABG Base Excess ABG Hemoglobin ABG Potassium ABG Chloride ABG Glucose Oxyhemoglobin Sodium Potassium Chloride Carbon Dioxide BUN Creatinine Glucose POC Glucose 183 H 129 H 184 H Calcium Phosphorus Magnesium Alkaline Phosphatase Lactate Dehydrogenase Total Creatine Kinase Troponin T C-Reactive Protein Total Protein Albumin LDL Cholesterol Direct HDL Cholesterol Arterial Blood Glucose Arterial Blood Ionized Calcium Urine WBC (Auto) Urine Creatinine Ur Creatinine 24 Hour Urine Total Protein Crossmatch 03/22/20 03/23/20 03/23/20 19:13 00:22 06:09 WBC RBC Hgb Hct MCV MCHC RDW Plt Count Lymph % (Auto) Lymph # (Auto) [place] # (Auto) Baso # (Auto) Seg Neutrophils % Seg Neuts % (Manual) Lymphocytes % (Manual) Nucleated RBC % Seg Neutrophils # Seg Neutrophils # Man Lymphocytes # (Manual) Monocytes # (Manual) PT INR APTT 91.0 H* ABG pH POC ABG pO2 ABG pO2 ABG HCO3 ABG O2 Saturation ABG Base Excess ABG Hemoglobin ABG Potassium ABG Chloride ABG Glucose Oxyhemoglobin Sodium Potassium Chloride Carbon Dioxide BUN Creatinine Glucose POC Glucose 159 H 166 H Calcium Phosphorus Magnesium Alkaline Phosphatase Lactate Dehydrogenase Total Creatine Kinase Troponin T C-Reactive Protein Total Protein Albumin LDL Cholesterol Direct HDL Cholesterol Arterial Blood Glucose Arterial Blood Ionized Calcium Urine WBC (Auto) Urine Creatinine Ur Creatinine 24 Hour Urine Total Protein Crossmatch 03/23/20 03/23/20 03/23/20 09:35 09:35 09:35 WBC 26.9 H RBC 3.60 L Hgb 10.7 L Hct 32.7 L MCV MCHC RDW 18.9 H Plt Count 98 L Lymph % (Auto) Lymph # (Auto) [place] # (Auto) Baso # (Auto) Seg Neutrophils % Seg Neuts % (Manual) 94.0 H Lymphocytes % (Manual) 2.0 L Nucleated RBC % 1.0 H Seg Neutrophils # Seg Neutrophils # Man 25.3 H Lymphocytes # (Manual) 0.5 L Monocytes # (Manual) PT INR APTT ABG pH POC ABG pO2 ABG pO2 ABG HCO3 ABG O2 Saturation ABG Base Excess ABG Hemoglobin ABG Potassium ABG Chloride ABG Glucose Oxyhemoglobin Sodium Potassium 3.5 L Chloride Carbon Dioxide BUN 61 H Creatinine 3.7 H Glucose 148 H POC Glucose Calcium Phosphorus 4.90 H D Magnesium Alkaline Phosphatase Lactate Dehydrogenase Total Creatine Kinase Troponin T C-Reactive Protein Total Protein Albumin LDL Cholesterol Direct HDL Cholesterol Arterial Blood Glucose Arterial Blood Ionized Calcium Urine WBC (Auto) Urine Creatinine Ur Creatinine 24 Hour Urine Total Protein Crossmatch 03/23/20 03/23/20 03/23/20 09:35 11:56 17:07 WBC RBC Hgb Hct MCV MCHC RDW Plt Count Lymph % (Auto) Lymph # (Auto) [place] # (Auto) Baso # (Auto) Seg Neutrophils % Seg Neuts % (Manual) Lymphocytes % (Manual) Nucleated RBC % Seg Neutrophils # Seg Neutrophils # Man Lymphocytes # (Manual) Monocytes # (Manual) PT INR APTT 115.2 H* 74.5 H* ABG pH POC ABG pO2 ABG pO2 ABG HCO3 ABG O2 Saturation ABG Base Excess ABG Hemoglobin ABG Potassium ABG Chloride ABG Glucose Oxyhemoglobin Sodium Potassium Chloride Carbon Dioxide BUN Creatinine Glucose POC Glucose 159 H Calcium Phosphorus Magnesium Alkaline Phosphatase Lactate Dehydrogenase Total Creatine Kinase Troponin T C-Reactive Protein Total Protein Albumin LDL Cholesterol Direct HDL Cholesterol Arterial Blood Glucose Arterial Blood Ionized Calcium Urine WBC (Auto) Urine Creatinine Ur Creatinine 24 Hour Urine Total Protein Crossmatch 03/23/20 03/23/20 03/23/20 17:34 21:45 22:24 WBC RBC Hgb Hct MCV MCHC RDW Plt Count Lymph % (Auto) Lymph # (Auto) [place] # (Auto) Baso # (Auto) Seg Neutrophils % Seg Neuts % (Manual) Lymphocytes % (Manual) Nucleated RBC % Seg Neutrophils # Seg Neutrophils # Man Lymphocytes # (Manual) Monocytes # (Manual) PT INR APTT 112.5 H* ABG pH POC ABG pO2 ABG pO2 ABG HCO3 ABG O2 Saturation ABG Base Excess ABG Hemoglobin ABG Potassium ABG Chloride ABG Glucose Oxyhemoglobin Sodium Potassium Chloride Carbon Dioxide BUN Creatinine Glucose POC Glucose 217 H 160 H Calcium Phosphorus Magnesium Alkaline Phosphatase Lactate Dehydrogenase Total Creatine Kinase Troponin T C-Reactive Protein Total Protein Albumin LDL Cholesterol Direct HDL Cholesterol Arterial Blood Glucose Arterial Blood Ionized Calcium Urine WBC (Auto) Urine Creatinine Ur Creatinine 24 Hour Urine Total Protein Crossmatch 03/24/20 03/24/20 03/24/20 01:13 05:19 05:19 WBC 28.6 H RBC 3.57 L Hgb 10.7 L Hct 33.3 L MCV MCHC RDW 18.4 H Plt Count 94 L Lymph % (Auto) 4.0 L Lymph # (Auto) 1.1 L [place] # (Auto) 0.9 H Baso # (Auto) Seg Neutrophils % Seg Neuts % (Manual) Lymphocytes % (Manual) Nucleated RBC % Seg Neutrophils # 26.4 H Seg Neutrophils # Man Lymphocytes # (Manual) Monocytes # (Manual) PT INR APTT ABG pH POC ABG pO2 ABG pO2 ABG HCO3 ABG O2 Saturation ABG Base Excess ABG Hemoglobin ABG Potassium ABG Chloride ABG Glucose Oxyhemoglobin Sodium 146 H Potassium 3.5 L Chloride Carbon Dioxide BUN 71 H Creatinine 3.9 H Glucose 141 H POC Glucose 186 H Calcium 8.3 L Phosphorus 5.80 H Magnesium Alkaline Phosphatase Lactate Dehydrogenase Total Creatine Kinase Troponin T C-Reactive Protein Total Protein Albumin LDL Cholesterol Direct HDL Cholesterol Arterial Blood Glucose Arterial Blood Ionized Calcium Urine WBC (Auto) Urine Creatinine Ur Creatinine 24 Hour Urine Total Protein Crossmatch 03/24/20 03/24/20 03/24/20 05:19 06:35 12:24 WBC RBC Hgb Hct MCV MCHC RDW Plt Count Lymph % (Auto) Lymph # (Auto) [place] # (Auto) Baso # (Auto) Seg Neutrophils % Seg Neuts % (Manual) Lymphocytes % (Manual) Nucleated RBC % Seg Neutrophils # Seg Neutrophils # Man Lymphocytes # (Manual) Monocytes # (Manual) PT INR APTT 91.5 H* ABG pH POC ABG pO2 ABG pO2 ABG HCO3 ABG O2 Saturation ABG Base Excess ABG Hemoglobin ABG Potassium ABG Chloride ABG Glucose Oxyhemoglobin Sodium Potassium Chloride Carbon Dioxide BUN Creatinine Glucose POC Glucose 153 H 162 H Calcium Phosphorus Magnesium Alkaline Phosphatase Lactate Dehydrogenase Total Creatine Kinase Troponin T C-Reactive Protein Total Protein Albumin LDL Cholesterol Direct HDL Cholesterol Arterial Blood Glucose Arterial Blood Ionized Calcium Urine WBC (Auto) Urine Creatinine Ur Creatinine 24 Hour Urine Total Protein Crossmatch 03/24/20 03/24/20 03/25/20 19:50 23:56 05:11 WBC RBC Hgb Hct MCV MCHC RDW Plt Count Lymph % (Auto) Lymph # (Auto) [place] # (Auto) Baso # (Auto) Seg Neutrophils % Seg Neuts % (Manual) Lymphocytes % (Manual) Nucleated RBC % Seg Neutrophils # Seg Neutrophils # Man Lymphocytes # (Manual) Monocytes # (Manual) PT INR APTT 75.3 H* ABG pH POC ABG pO2 ABG pO2 ABG HCO3 ABG O2 Saturation ABG Base Excess ABG Hemoglobin ABG Potassium ABG Chloride ABG Glucose Oxyhemoglobin Sodium Potassium Chloride Carbon Dioxide BUN Creatinine Glucose POC Glucose 193 H 139 H Calcium Phosphorus Magnesium Alkaline Phosphatase Lactate Dehydrogenase Total Creatine Kinase Troponin T C-Reactive Protein Total Protein Albumin LDL Cholesterol Direct HDL Cholesterol Arterial Blood Glucose Arterial Blood Ionized Calcium Urine WBC (Auto) Urine Creatinine Ur Creatinine 24 Hour Urine Total Protein Crossmatch 03/25/20 03/25/20 03/25/20 06:25 15:39 15:55 WBC RBC Hgb Hct MCV MCHC RDW Plt Count Lymph % (Auto) Lymph # (Auto) [place] # (Auto) Baso # (Auto) Seg Neutrophils % Seg Neuts % (Manual) Lymphocytes % (Manual) Nucleated RBC % Seg Neutrophils # Seg Neutrophils # Man Lymphocytes # (Manual) Monocytes # (Manual) PT INR APTT 79.3 H* ABG pH POC ABG pO2 ABG pO2 ABG HCO3 ABG O2 Saturation ABG Base Excess ABG Hemoglobin ABG Potassium ABG Chloride ABG Glucose Oxyhemoglobin Sodium Potassium Chloride Carbon Dioxide BUN 54 H Creatinine 3.1 H Glucose 112 H POC Glucose 111 H Calcium 8.3 L Phosphorus 4.90 H Magnesium Alkaline Phosphatase Lactate Dehydrogenase Total Creatine Kinase Troponin T C-Reactive Protein Total Protein Albumin LDL Cholesterol Direct HDL Cholesterol Arterial Blood Glucose Arterial Blood Ionized Calcium Urine WBC (Auto) Urine Creatinine Ur Creatinine 24 Hour Urine Total Protein Crossmatch 03/25/20 03/26/20 03/26/20 23:40 00:32 06:31 WBC RBC Hgb Hct MCV MCHC RDW Plt Count Lymph % (Auto) Lymph # (Auto) [place] # (Auto) Baso # (Auto) Seg Neutrophils % Seg Neuts % (Manual) Lymphocytes % (Manual) Nucleated RBC % Seg Neutrophils # Seg Neutrophils # Man Lymphocytes # (Manual) Monocytes # (Manual) PT INR APTT 83.1 H* ABG pH POC ABG pO2 ABG pO2 ABG HCO3 ABG O2 Saturation ABG Base Excess ABG Hemoglobin ABG Potassium ABG Chloride ABG Glucose Oxyhemoglobin Sodium Potassium 3.2 L Chloride Carbon Dioxide BUN 63 H Creatinine 3.6 H Glucose POC Glucose 115 H Calcium 8.1 L Phosphorus 5.60 H Magnesium Alkaline Phosphatase Lactate Dehydrogenase Total Creatine Kinase Troponin T C-Reactive Protein Total Protein Albumin LDL Cholesterol Direct HDL Cholesterol Arterial Blood Glucose Arterial Blood Ionized Calcium Urine WBC (Auto) Urine Creatinine Ur Creatinine 24 Hour Urine Total Protein Crossmatch 03/26/20 03/26/20 03/26/20 13:23 13:33 14:18 WBC RBC Hgb Hct MCV MCHC RDW Plt Count Lymph % (Auto) Lymph # (Auto) [place] # (Auto) Baso # (Auto) Seg Neutrophils % Seg Neuts % (Manual) Lymphocytes % (Manual) Nucleated RBC % Seg Neutrophils # Seg Neutrophils # Man Lymphocytes # (Manual) Monocytes # (Manual) PT INR APTT 75.5 H* ABG pH POC ABG pO2 ABG pO2 ABG HCO3 ABG O2 Saturation ABG Base Excess ABG Hemoglobin ABG Potassium ABG Chloride ABG Glucose Oxyhemoglobin Sodium Potassium Chloride Carbon Dioxide BUN Creatinine Glucose POC Glucose 107 H Calcium Phosphorus Magnesium Alkaline Phosphatase Lactate Dehydrogenase Total Creatine Kinase Troponin T C-Reactive Protein Total Protein Albumin LDL Cholesterol Direct HDL Cholesterol Arterial Blood Glucose Arterial Blood Ionized Calcium Urine WBC (Auto) Urine Creatinine 63.7 H Ur Creatinine 24 Hour 0.4 L Urine Total Protein Crossmatch 03/27/20 03/27/20 03/27/20 05:26 11:22 12:08 WBC RBC Hgb Hct MCV MCHC RDW Plt Count Lymph % (Auto) Lymph # (Auto) [place] # (Auto) Baso # (Auto) Seg Neutrophils % Seg Neuts % (Manual) Lymphocytes % (Manual) Nucleated RBC % Seg Neutrophils # Seg Neutrophils # Man Lymphocytes # (Manual) Monocytes # (Manual) PT INR APTT ABG pH POC ABG pO2 ABG pO2 ABG HCO3 ABG O2 Saturation ABG Base Excess ABG Hemoglobin ABG Potassium ABG Chloride ABG Glucose Oxyhemoglobin Sodium Potassium Chloride Carbon Dioxide BUN 70 H Creatinine 3.9 H Glucose 67 L POC Glucose 44 L Calcium 8.3 L Phosphorus 6.40 H Magnesium Alkaline Phosphatase Lactate Dehydrogenase 255 H Total Creatine Kinase Troponin T C-Reactive Protein Total Protein Albumin LDL Cholesterol Direct HDL Cholesterol Arterial Blood Glucose Arterial Blood Ionized Calcium Urine WBC (Auto) Urine Creatinine Ur Creatinine 24 Hour Urine Total Protein Crossmatch 03/27/20 03/27/20 03/27/20 12:29 14:31 16:00 WBC RBC Hgb Hct MCV MCHC RDW Plt Count Lymph % (Auto) Lymph # (Auto) [place] # (Auto) Baso # (Auto) Seg Neutrophils % Seg Neuts % (Manual) Lymphocytes % (Manual) Nucleated RBC % Seg Neutrophils # Seg Neutrophils # Man Lymphocytes # (Manual) Monocytes # (Manual) PT INR APTT 74.1 H* ABG pH POC ABG pO2 ABG pO2 ABG HCO3 ABG O2 Saturation ABG Base Excess ABG Hemoglobin ABG Potassium ABG Chloride ABG Glucose Oxyhemoglobin Sodium Potassium Chloride Carbon Dioxide BUN Creatinine Glucose POC Glucose 53 L 132 H Calcium Phosphorus Magnesium Alkaline Phosphatase Lactate Dehydrogenase Total Creatine Kinase Troponin T C-Reactive Protein Total Protein Albumin LDL Cholesterol Direct HDL Cholesterol Arterial Blood Glucose Arterial Blood Ionized Calcium Urine WBC (Auto) Urine Creatinine Ur Creatinine 24 Hour Urine Total Protein Crossmatch 03/27/20 03/27/20 03/27/20 16:00 16:00 17:07 WBC 14.8 H RBC 3.30 L Hgb 10.2 L Hct 30.8 L MCV MCHC RDW 17.6 H Plt Count 101 L Lymph % (Auto) Lymph # (Auto) [place] # (Auto) Baso # (Auto) Seg Neutrophils % Seg Neuts % (Manual) 93.0 H Lymphocytes % (Manual) 4.0 L Nucleated RBC % Seg Neutrophils # Seg Neutrophils # Man 13.8 H Lymphocytes # (Manual) 0.6 L Monocytes # (Manual) PT INR APTT ABG pH POC ABG pO2 ABG pO2 ABG HCO3 ABG O2 Saturation ABG Base Excess ABG Hemoglobin ABG Potassium ABG Chloride ABG Glucose Oxyhemoglobin Sodium Potassium Chloride Carbon Dioxide BUN Creatinine Glucose POC Glucose 154 H Calcium Phosphorus Magnesium Alkaline Phosphatase Lactate Dehydrogenase Total Creatine Kinase Troponin T C-Reactive Protein 3.20 H Total Protein Albumin LDL Cholesterol Direct HDL Cholesterol Arterial Blood Glucose Arterial Blood Ionized Calcium Urine WBC (Auto) Urine Creatinine Ur Creatinine 24 Hour Urine Total Protein Crossmatch 03/27/20 03/28/20 03/28/20 21:38 00:52 05:49 WBC 17.1 H RBC 3.05 L Hgb 9.4 L Hct 28.2 L MCV MCHC RDW 17.0 H Plt Count 98 L Lymph % (Auto) 4.3 L Lymph # (Auto) 0.7 L [place] # (Auto) Baso # (Auto) 0.2 H Seg Neutrophils % 89.8 H Seg Neuts % (Manual) Lymphocytes % (Manual) Nucleated RBC % Seg Neutrophils # 15.4 H Seg Neutrophils # Man Lymphocytes # (Manual) Monocytes # (Manual) PT INR APTT ABG pH POC ABG pO2 ABG pO2 ABG HCO3 ABG O2 Saturation ABG Base Excess ABG Hemoglobin ABG Potassium ABG Chloride ABG Glucose Oxyhemoglobin Sodium Potassium 3.3 L Chloride Carbon Dioxide BUN 52 H Creatinine 3.3 H Glucose POC Glucose 191 H Calcium 8.1 L Phosphorus 6.10 H Magnesium Alkaline Phosphatase Lactate Dehydrogenase Total Creatine Kinase Troponin T C-Reactive Protein Total Protein Albumin LDL Cholesterol Direct HDL Cholesterol Arterial Blood Glucose Arterial Blood Ionized Calcium Urine WBC (Auto) Urine Creatinine Ur Creatinine 24 Hour Urine Total Protein Crossmatch 03/28/20 03/29/20 03/29/20 05:49 00:34 06:26 WBC 17.7 H RBC 3.21 L Hgb 9.8 L Hct 30.6 L MCV 95 H MCHC RDW 17.4 H Plt Count 83 L Lymph % (Auto) 11.7 L Lymph # (Auto) [place] # (Auto) 1.1 H Baso # (Auto) Seg Neutrophils % 80.6 H Seg Neuts % (Manual) Lymphocytes % (Manual) Nucleated RBC % Seg Neutrophils # 14.3 H Seg Neutrophils # Man Lymphocytes # (Manual) Monocytes # (Manual) PT INR APTT 69.2 H* ABG pH POC ABG pO2 ABG pO2 ABG HCO3 ABG O2 Saturation ABG Base Excess ABG Hemoglobin ABG Potassium ABG Chloride ABG Glucose Oxyhemoglobin Sodium Potassium 3.2 L Chloride Carbon Dioxide BUN 57 H Creatinine 3.7 H Glucose POC Glucose Calcium 8.1 L Phosphorus 7.20 H Magnesium Alkaline Phosphatase Lactate Dehydrogenase Total Creatine Kinase Troponin T C-Reactive Protein Total Protein Albumin LDL Cholesterol Direct HDL Cholesterol Arterial Blood Glucose Arterial Blood Ionized Calcium Urine WBC (Auto) Urine Creatinine Ur Creatinine 24 Hour Urine Total Protein Crossmatch 03/29/20 03/29/20 03/30/20 06:26 21:30 00:47 WBC RBC 2.60 L Hgb 8.1 L Hct 24.9 L MCV 96 H MCHC RDW 17.6 H Plt Count 76 L Lymph % (Auto) 7.5 L Lymph # (Auto) 0.8 L [place] # (Auto) Baso # (Auto) Seg Neutrophils % 84.8 H Seg Neuts % (Manual) Lymphocytes % (Manual) Nucleated RBC % Seg Neutrophils # 9.1 H Seg Neutrophils # Man Lymphocytes # (Manual) Monocytes # (Manual) PT INR APTT 48.6 H ABG pH POC ABG pO2 ABG pO2 ABG HCO3 ABG O2 Saturation ABG Base Excess ABG Hemoglobin ABG Potassium ABG Chloride ABG Glucose Oxyhemoglobin Sodium Potassium Chloride Carbon Dioxide BUN Creatinine Glucose POC Glucose 171 H Calcium Phosphorus Magnesium Alkaline Phosphatase Lactate Dehydrogenase Total Creatine Kinase Troponin T C-Reactive Protein Total Protein Albumin LDL Cholesterol Direct HDL Cholesterol Arterial Blood Glucose Arterial Blood Ionized Calcium Urine WBC (Auto) Urine Creatinine Ur Creatinine 24 Hour Urine Total Protein Crossmatch 03/30/20 03/30/20 03/30/20 05:39 12:01 17:27 WBC RBC Hgb Hct MCV MCHC RDW Plt Count Lymph % (Auto) Lymph # (Auto) [place] # (Auto) Baso # (Auto) Seg Neutrophils % Seg Neuts % (Manual) Lymphocytes % (Manual) Nucleated RBC % Seg Neutrophils # Seg Neutrophils # Man Lymphocytes # (Manual) Monocytes # (Manual) PT INR APTT ABG pH POC ABG pO2 ABG pO2 ABG HCO3 ABG O2 Saturation ABG Base Excess ABG Hemoglobin ABG Potassium ABG Chloride ABG Glucose Oxyhemoglobin Sodium Potassium 2.7 L* Chloride Carbon Dioxide BUN 33 H Creatinine 2.8 H Glucose POC Glucose 163 H 137 H Calcium 7.6 L Phosphorus Magnesium Alkaline Phosphatase Lactate Dehydrogenase Total Creatine Kinase Troponin T C-Reactive Protein Total Protein Albumin LDL Cholesterol Direct HDL Cholesterol Arterial Blood Glucose Arterial Blood Ionized Calcium Urine WBC (Auto) Urine Creatinine Ur Creatinine 24 Hour Urine Total Protein Crossmatch 03/30/20 03/30/20 03/31/20 21:21 22:49 05:28 WBC RBC Hgb Hct MCV MCHC RDW Plt Count Lymph % (Auto) Lymph # (Auto) [place] # (Auto) Baso # (Auto) Seg Neutrophils % Seg Neuts % (Manual) Lymphocytes % (Manual) Nucleated RBC % Seg Neutrophils # Seg Neutrophils # Man Lymphocytes # (Manual) Monocytes # (Manual) PT INR APTT ABG pH POC ABG pO2 ABG pO2 ABG HCO3 ABG O2 Saturation ABG Base Excess ABG Hemoglobin ABG Potassium ABG Chloride ABG Glucose Oxyhemoglobin Sodium Potassium 2.9 L* Chloride 108.1 H Carbon Dioxide BUN 40 H Creatinine 3.2 H Glucose 151 H POC Glucose 327 H 231 H Calcium 7.8 L Phosphorus Magnesium Alkaline Phosphatase Lactate Dehydrogenase Total Creatine Kinase Troponin T C-Reactive Protein Total Protein Albumin LDL Cholesterol Direct HDL Cholesterol Arterial Blood Glucose Arterial Blood Ionized Calcium Urine WBC (Auto) Urine Creatinine Ur Creatinine 24 Hour Urine Total Protein Crossmatch 03/31/20 03/31/20 03/31/20 08:35 12:35 22:32 WBC RBC Hgb Hct MCV MCHC RDW Plt Count Lymph % (Auto) Lymph # (Auto) [place] # (Auto) Baso # (Auto) Seg Neutrophils % Seg Neuts % (Manual) Lymphocytes % (Manual) Nucleated RBC % Seg Neutrophils # Seg Neutrophils # Man Lymphocytes # (Manual) Monocytes # (Manual) PT INR APTT ABG pH POC ABG pO2 ABG pO2 ABG HCO3 ABG O2 Saturation ABG Base Excess ABG Hemoglobin ABG Potassium ABG Chloride ABG Glucose Oxyhemoglobin Sodium Potassium Chloride Carbon Dioxide BUN Creatinine Glucose POC Glucose 191 H 193 H 182 H Calcium Phosphorus Magnesium Alkaline Phosphatase Lactate Dehydrogenase Total Creatine Kinase Troponin T C-Reactive Protein Total Protein Albumin LDL Cholesterol Direct HDL Cholesterol Arterial Blood Glucose Arterial Blood Ionized Calcium Urine WBC (Auto) Urine Creatinine Ur Creatinine 24 Hour Urine Total Protein Crossmatch 04/01/20 04/01/20 04/01/20 05:13 08:44 11:22 WBC RBC Hgb Hct MCV MCHC RDW Plt Count Lymph % (Auto) Lymph # (Auto) [place] # (Auto) Baso # (Auto) Seg Neutrophils % Seg Neuts % (Manual) Lymphocytes % (Manual) Nucleated RBC % Seg Neutrophils # Seg Neutrophils # Man Lymphocytes # (Manual) Monocytes # (Manual) PT INR APTT ABG pH POC ABG pO2 ABG pO2 ABG HCO3 ABG O2 Saturation ABG Base Excess ABG Hemoglobin ABG Potassium ABG Chloride ABG Glucose Oxyhemoglobin Sodium Potassium Chloride 109.2 H Carbon Dioxide BUN 45 H Creatinine 3.3 H Glucose 110 H POC Glucose 116 H 137 H Calcium 7.9 L Phosphorus Magnesium Alkaline Phosphatase Lactate Dehydrogenase Total Creatine Kinase Troponin T C-Reactive Protein Total Protein Albumin LDL Cholesterol Direct HDL Cholesterol Arterial Blood Glucose Arterial Blood Ionized Calcium Urine WBC (Auto) Urine Creatinine Ur Creatinine 24 Hour Urine Total Protein Crossmatch Allied health notes reviewed: nursing
[2020-04-01 18:24] LABS: Creatinine 24 Hour,Urine 0.6 (0.8-2.8); Creatinine,Urine 82.8 mg/dL (0.1-20.0)
[2020-04-02] MEDS: VANCOMYCIN 250 MG/10 ML ORAL LIQD PO SCH ×5 (05:09→23:45)
[2020-04-02 06:39] LABS: Calcium 7.9 mg/dL (8.4-10.2)
--- NOTE | 2020-04-02 08:55 | Progress Note ---
Assessment and Plan Acute renal failure likely due to ischemic ATN Metabolic encphalopathy Metabolic acidosis Sepsis due to UTI UTI S/P Hypokalemia Anemia Plan: Cr and BUN are slowly rising, creatinine clearance was ~10, remains oliguric no indication for HD today but likely will be needed tomorrow KCl 20 meq BID S/P removal of vasc cath and placement of right IJ Perm-cath placement on 03/29/20 Epogen with HD for anemia Renally dose medications Strict I&O monitoring Obtain daily weights Monitor renal function closely ID evaluated pt, on Abx Subjective Date of service: 04/02/20 Principal diagnosis: Acute hypoxemic respiratory failure; Septic shock; Ac. enc ephalopathy; ALEJANDRO Interval history: no overnight events reported, appears comfortable Objective - Vital Signs Vital signs: Vital Signs - 12hr 04/01/20 04/01/20 04/02/20 22:00 23:49 00:25 Temperature 97.6 F Pulse Rate 91 H 73 Respiratory 18 Rate Blood Pressure 144/78 O2 Sat by Pulse 95 Oximetry 04/02/20 04:14 Temperature 99.5 F Pulse Rate 85 Respiratory 18 Rate Blood Pressure 151/95 O2 Sat by Pulse 97 Oximetry - Lab 03/30/20 00:47 04/02/20 04:16 Most recent lab results ABG pH 7.378 pH Units (7.350-7.450) 03/20/20 16:35 ABG pCO2 38.6 mm Hg 03/20/20 16:35 ABG pO2 63.9 mm Hg (80.0-90.0) L 03/20/20 16:35 ABG HCO3 22.2 mmol/L (20.0-26.0) 03/20/20 16:35 ABG O2 Saturation 90.9 % (95.0-99.0) L 03/20/20 16:35 Calcium 7.9 mg/dL (8.4-10.2) L 04/02/20 04:16 Phosphorus 7.20 mg/dL (2.5-4.5) H 03/29/20 06:26 Magnesium 1.80 mg/dL (1.7-2.3) 03/24/20 05:19 Urine Creatinine 82.8 mg/dL (0.1-20.0) H 03/31/20 12:24 Urine Sodium 53 mmol/L 03/17/20 Unknown Urine Total Protein 328 mg/dL (5-11.8) H 03/17/20 Unknown Medications & Allergies - Medications Allergies/Adverse Reactions: Allergies diclofenac [Diclofenac] Allergy (Verified 10/05/18 08:11) Rash Home Medications: Home Medications Medication Instructions Recorded Confirmed Last Taken Type Acetaminophen [Acetaminophen TAB] 650 mg PO Q4H PRN #1 tablet 02/28/17 03/19/20 Unknown Rx Aspirin [Aspirin BABY CHEW TAB] 81 mg PO DAILY #1 tab.chew 02/28/17 03/19/20 Unknown Rx Ferrous Sulfate [Feosol 325 MG tab] 325 mg PO QDAY #1 tablet 02/28/17 03/19/20 Unknown Rx Gabapentin 300 mg PO Q8HR #1 capsule 02/28/17 03/19/20 Unknown Rx Ondansetron [Zofran INJ] 4 mg IV Q8H PRN #1 vial 02/28/17 03/19/20 Unknown Rx amLODIPine 10 mg PO DAILY #1 tablet 02/28/17 03/19/20 Unknown Rx Ertapenem [INVanz] 1 gm IV QDAY vial 03/10/20 03/19/20 Unknown Rx Active Medications: Generic Name Dose Route Start Last Admin Trade Name Freq PRN Reason Stop Dose Admin Acetaminophen 650 mg 03/19/20 18:21 03/19/20 18:39 Tylenol FEEDTUBE 650 mg Q6H PRN Administration Pain, Mild (1-3) Albuterol 2.5 mg 03/16/20 17:00 Proventil IH Q3HRT PRN Shortness Of Breath Lipase/Protease/Amylase 1 each 03/17/20 17:12 Pancrescooby [place] 10,500 Unit FEEDTUBE PRN PRN For Clogged Feeding Tube Dextrose 50 ml 03/27/20 12:23 D50w (25gm) Syringe IV Q30MIN PRN Hypoglycemia Protocol Epoetin Colin 10,000 unit 03/24/20 17:00 Procrit IV DAYLIN IDRIS Famotidine 20 mg 03/28/20 10:00 04/01/20 09:10 Pepcid PO 20 mg DAILY IDRIS Administration Heparin Sodium (Porcine) 5,000 unit 03/28/20 10:00 04/01/20 22:46 Heparin SUB-Q 5,000 unit Q12HR IDRIS Administration Hydromorphone HCl 0.25 mg 03/16/20 17:30 04/01/20 17:27 Dilaudid IV 0.25 mg Q4H PRN Administration Pain, Moderate (4-6) Hydrophilic Ointment 1 applic 03/21/20 07:50 03/21/20 16:38 Aquaphor TP 1 applic Q12HR PRN Administration DRY SKIN Sodium Chloride 100 mls @ 999 mls/hr 03/26/20 16:20 Nacl 0.9% IV DAYLIN PRN Hypotension Insulin Glargine 6 units 03/27/20 22:00 Lantus SUB-Q QHS IDRIS Insulin Human Lispro 0 unit 03/27/20 22:00 04/01/20 22:48 Humalog SUB-Q 3 unit ACHS IDRIS Administration Protocol Midodrine 10 mg 03/20/20 12:00 04/01/20 17:27 Proamatine PO 10 mg TID@0800,1200,1600 IDRIS Administration Potassium Chloride 20 meq 03/31/20 13:00 04/01/20 22:48 K-Dur PO 20 meq BID IDRIS Administration Simple Syrup 15 ml 03/17/20 17:12 Simple Syrup FEEDTUBE PRN PRN Hypoglycemia Simple Syrup 30 ml 03/17/20 17:12 Simple Syrup FEEDTUBE PRN PRN Hypoglycemia Sodium Chloride 10 ml 03/16/20 22:00 04/01/20 22:48 Sodium Chloride Flush Syringe 10 Ml IV 10 ml BID IDRIS Administration Sodium Chloride 10 ml 03/16/20 17:00 Sodium Chloride Flush Syringe 10 Ml IV PRN PRN LINE FLUSH Vancomycin HCl 250 mg 03/20/20 12:00 04/02/20 05:09 Vancomycin Po PO 04/03/20 06:01 250 mg Q6HR IDRIS Administration
[2020-04-02] MEDS: INSULIN LISPRO 100 UNIT/ML VIAL 3 mL SUB-Q SCH ×4 (08:59→21:23)
[2020-04-02] MEDS: FAMOTIDINE 20 MG TAB PO SCH (11:04)
[2020-04-02] MEDS: MIDODRINE 5 MG TAB PO SCH ×3 (11:04→17:07)
[2020-04-02] MEDS: HEPARIN 5,000 UNIT/1 ML VIAL SUB-Q SCH ×2 (11:04→21:12)
[2020-04-02] MEDS: POTASSIUM CHLORIDE ER 20 MEQ TAB PO SCH ×2 (11:04→21:11)
--- NOTE | 2020-04-02 15:57 | Progress Note ---
Assessment and Plan Acute hypoxemic respiratory failure Septic shock Pulmonary HTN Acute Toxic metabolic encephalopathy Acute kidney injury (ALEJANDRO) with acute tubular necrosis (ATN) PUI COVID-19 Sacral decubitus ulcer h/o VTE Hypothermia Obesity Adult FTT - wean supplemental oxygen for target O2 sat's > 90% acutely - prn CXR' & ABG's at this point - prn analgesia per pain score - BIPAP scheduled qhs with prn daytime use - continue HD/UF per nephrology for toxin and volume clearance - continue care as below otherwise; - 2D ECHO shows pulm HTN with septal flattening (outpatient w/up) - continue aspiration precautions (HOB >/= 40 degrees) - conservative fluid strategies henceforth - complete antiinfective's per ID rec's (IV vanc stopped) - accuchecks with glycemic control per SSI for target blood glucose of < 180 mg/dL; avoid hypoglycemia - bronchodilators with pulmonary hygiene per RT - avoid nephrotoxins, renally dose all medications - avoid benzodiazepine's, reduce the possibility of delirium - Maintenance of sleep-wake cycle, avoid delirium - G.I. & VTE prophylaxis - PT/OT/ROM exercises - continue mobility protocols for pressure ulcer prophylaxis - Monitor hemodynamics closely - continue other care per attending / other consultants - discharge planning ongoing concurrently .... Re-evaluate in am & prn CONDITION: FAIR PROGNOSIS: GUARDED CODE STATUS: FULL CODE Subjective Date of service: 04/02/20 Principal diagnosis: Acute hypoxemic respiratory failure; Septic shock; Ac. encephalopathy; ALEJANDRO Interval history: Patient is seen today for: Acute hypoxemic respiratory failure; Septic shock; Acute Toxic metabolic encephalopathy; ALEJANDRO; PUI COVID-19; Sacral decubitus ulcer; h/o VTE; Hypothermia; Obesity; Adult FTT Seen and examined at bedside; 24hour events reviewed; nursing and respiratory care staff consulted; no adverse overnight events reported to me; resting peacefully in bed; Objective Vital Signs - 12hr 04/02/20 04/02/20 04/02/20 04:14 09:04 12:11 Temperature 99.5 F 99.0 F 97.9 F Pulse Rate 85 88 98 H Respiratory 18 18 18 Rate Blood Pressure 151/95 128/76 147/68 O2 Sat by Pulse 97 98 100 Oximetry Constitutional: alert, appears uncomfortable, other (elderly obese male with normal respiratory effort at rest) Eyes: non-icteric ENT: oropharynx dry Neck: supple, no JVD, other (large neck circumference) Effort: mildly labored Ascultation: Bilateral: clear, diminished breath sounds, rhonchi Percussion: Bilateral: not dull Cardiovascular: regular rate and rhythm Gastrointestinal: normoactive bowel sounds, soft, non-tender, non-distended (protuberant) Integumentary: rash (Generalized skin flaking/with superficial skin sloughing without erythema or warmth on chest wall), decubitus ulcer (see RN/WCN notes for details) Extremities: no cyanosis, pulses normal, no ischemia or petechiae, other (Patient has stasis dermatitis and wounds on both legs.) Neurologic: non-focal exam (grossly), pupils equal and round, CN II-XII normal Psychiatric: anxious CBC and BMP: 03/30/20 00:47 04/02/20 04:16 ABG, PT/INR, D-dimer: ABG ABG pH 7.378 pH Units (7.350-7.450) 03/20/20 16:35 POC ABG pCO2 37.3 mmHg (32.0-48.0) 03/18/20 12:14 ABG pCO2 38.6 mm Hg 03/20/20 16:35 POC ABG pO2 67.4 mmHg (83-108) L 03/18/20 12:14 ABG pO2 63.9 mm Hg (80.0-90.0) L 03/20/20 16:35 POC ABG HCO3 14.1 03/18/20 12:14 ABG O2 Saturation 90.9 % (95.0-99.0) L 03/20/20 16:35 PT/INR, D-dimer PT 14.3 Sec. (12.2-14.9) 03/22/20 16:30 INR 1.09 (0.87-1.13) 03/22/20 16:30 Abnormal lab findings: Abnormal Labs 03/16/20 03/16/20 03/16/20 14:22 14:22 14:23 WBC 32.2 H RBC 2.93 L Hgb 8.9 L Hct 28.2 L MCV 96 H MCHC RDW 18.1 H Plt Count Lymph % (Auto) Lymph # (Auto) [place] # (Auto) Baso # (Auto) Seg Neutrophils % Seg Neuts % (Manual) 82.0 H Lymphocytes % (Manual) 10.0 L Nucleated RBC % 3.0 H Seg Neutrophils # Seg Neutrophils # Man 26.4 H Lymphocytes # (Manual) Monocytes # (Manual) 1.9 H PT INR APTT ABG pH POC ABG pO2 ABG pO2 ABG HCO3 ABG O2 Saturation ABG Base Excess ABG Hemoglobin ABG Potassium ABG Chloride ABG Glucose Oxyhemoglobin Sodium Potassium 3.3 L Chloride 108.9 H Carbon Dioxide 12 L BUN 59 H Creatinine 5.9 H Glucose 142 H POC Glucose Calcium 7.7 L Phosphorus Magnesium Alkaline Phosphatase 224 H Lactate Dehydrogenase Total Creatine Kinase Troponin T 0.033 H C-Reactive Protein Total Protein 5.4 L Albumin 1.9 L LDL Cholesterol Direct 35 L HDL Cholesterol 37 L Arterial Blood Glucose Arterial Blood Ionized Calcium Urine WBC (Auto) Urine Creatinine Ur Creatinine 24 Hour Urine Total Protein Crossmatch 03/16/20 03/16/20 03/16/20 14:27 19:50 21:15 WBC RBC Hgb Hct MCV MCHC RDW Plt Count Lymph % (Auto) Lymph # (Auto) [place] # (Auto) Baso # (Auto) Seg Neutrophils % Seg Neuts % (Manual) Lymphocytes % (Manual) Nucleated RBC % Seg Neutrophils # Seg Neutrophils # Man Lymphocytes # (Manual) Monocytes # (Manual) PT 17.2 H INR 1.37 H APTT 51.3 H ABG pH POC ABG pO2 ABG pO2 ABG HCO3 ABG O2 Saturation ABG Base Excess ABG Hemoglobin ABG Potassium ABG Chloride ABG Glucose Oxyhemoglobin Sodium Potassium Chloride Carbon Dioxide BUN Creatinine Glucose POC Glucose Calcium Phosphorus Magnesium Alkaline Phosphatase Lactate Dehydrogenase Total Creatine Kinase Troponin T 0.031 H C-Reactive Protein Total Protein Albumin LDL Cholesterol Direct HDL Cholesterol Arterial Blood Glucose Arterial Blood Ionized Calcium Urine WBC (Auto) > 182.0 H Urine Creatinine Ur Creatinine 24 Hour Urine Total Protein Crossmatch 03/16/20 03/17/20 03/17/20 22:25 11:13 11:13 WBC 34.4 H RBC 2.60 L Hgb 7.8 L Hct 25.2 L MCV 97 H MCHC 31 L RDW 18.7 H Plt Count Lymph % (Auto) Lymph # (Auto) [place] # (Auto) Baso # (Auto) Seg Neutrophils % Seg Neuts % (Manual) 88.0 H Lymphocytes % (Manual) 1.0 L Nucleated RBC % 13.0 H Seg Neutrophils # Seg Neutrophils # Man 30.3 H Lymphocytes # (Manual) 0.3 L Monocytes # (Manual) PT INR APTT ABG pH POC ABG pO2 ABG pO2 ABG HCO3 ABG O2 Saturation ABG Base Excess ABG Hemoglobin ABG Potassium ABG Chloride ABG Glucose Oxyhemoglobin Sodium Potassium 3.3 L Chloride 108.5 H Carbon Dioxide 16 L BUN 57 H Creatinine 5.5 H Glucose 325 H POC Glucose Calcium 7.0 L Phosphorus Magnesium Alkaline Phosphatase Lactate Dehydrogenase Total Creatine Kinase Troponin T 0.047 H D C-Reactive Protein Total Protein Albumin LDL Cholesterol Direct HDL Cholesterol Arterial Blood Glucose Arterial Blood Ionized Calcium Urine WBC (Auto) Urine Creatinine Ur Creatinine 24 Hour Urine Total Protein Crossmatch 03/17/20 03/17/20 03/17/20 11:13 11:40 Unknown WBC RBC Hgb Hct MCV MCHC RDW Plt Count Lymph % (Auto) Lymph # (Auto) [place] # (Auto) Baso # (Auto) Seg Neutrophils % Seg Neuts % (Manual) Lymphocytes % (Manual) Nucleated RBC % Seg Neutrophils # Seg Neutrophils # Man Lymphocytes # (Manual) Monocytes # (Manual) PT INR APTT ABG pH 7.229 L POC ABG pO2 ABG pO2 98.3 H ABG HCO3 14.6 L ABG O2 Saturation ABG Base Excess -12.0 L ABG Hemoglobin 8.9 L ABG Potassium ABG Chloride ABG Glucose Oxyhemoglobin Sodium Potassium Chloride Carbon Dioxide BUN Creatinine Glucose POC Glucose Calcium Phosphorus Magnesium Alkaline Phosphatase Lactate Dehydrogenase Total Creatine Kinase 373 H Troponin T C-Reactive Protein Total Protein Albumin LDL Cholesterol Direct HDL Cholesterol Arterial Blood Glucose Arterial Blood Ionized Calcium Urine WBC (Auto) > 182.0 H Urine Creatinine Ur Creatinine 24 Hour Urine Total Protein Crossmatch 03/17/20 03/18/20 03/18/20 Unknown 04:40 04:40 WBC 32.0 H RBC 2.56 L Hgb 7.9 L Hct 24.7 L MCV 96 H MCHC RDW 18.2 H Plt Count Lymph % (Auto) Lymph # (Auto) [place] # (Auto) Baso # (Auto) Seg Neutrophils % Seg Neuts % (Manual) Lymphocytes % (Manual) Nucleated RBC % Seg Neutrophils # Seg Neutrophils # Man Lymphocytes # (Manual) Monocytes # (Manual) PT INR APTT ABG pH POC ABG pO2 ABG pO2 ABG HCO3 ABG O2 Saturation ABG Base Excess ABG Hemoglobin ABG Potassium ABG Chloride ABG Glucose Oxyhemoglobin Sodium Potassium 2.7 L* Chloride 111.8 H Carbon Dioxide 12 L BUN 56 H Creatinine 4.6 H Glucose 347 H POC Glucose Calcium 6.7 L Phosphorus 5.40 H Magnesium Alkaline Phosphatase Lactate Dehydrogenase Total Creatine Kinase Troponin T C-Reactive Protein Total Protein Albumin LDL Cholesterol Direct HDL Cholesterol Arterial Blood Glucose Arterial Blood Ionized Calcium Urine WBC (Auto) Urine Creatinine 139.3 H Ur Creatinine 24 Hour Urine Total Protein 328 H Crossmatch 03/18/20 03/18/20 03/18/20 04:40 04:48 12:14 WBC RBC Hgb Hct MCV MCHC RDW Plt Count Lymph % (Auto) Lymph # (Auto) [place] # (Auto) Baso # (Auto) Seg Neutrophils % Seg Neuts % (Manual) Lymphocytes % (Manual) Nucleated RBC % Seg Neutrophils # Seg Neutrophils # Man Lymphocytes # (Manual) Monocytes # (Manual) PT INR APTT ABG pH 7.230 L 7.196 L POC ABG pO2 67.4 L ABG pO2 91.6 H ABG HCO3 13.7 L ABG O2 Saturation ABG Base Excess -12.8 L ABG Hemoglobin 9.2 L 9.9 L ABG Potassium 3.3 L ABG Chloride 112.0 H ABG Glucose 355 H Oxyhemoglobin 94.8 L Sodium Potassium Chloride Carbon Dioxide BUN Creatinine Glucose POC Glucose Calcium Phosphorus Magnesium 1.40 L Alkaline Phosphatase Lactate Dehydrogenase Total Creatine Kinase Troponin T C-Reactive Protein Total Protein Albumin LDL Cholesterol Direct HDL Cholesterol Arterial Blood Glucose 355 H Arterial Blood Ionized Calcium 4.5 L Urine WBC (Auto) Urine Creatinine Ur Creatinine 24 Hour Urine Total Protein Crossmatch 03/18/20 03/18/20 03/18/20 13:17 13:32 19:15 WBC RBC Hgb Hct MCV MCHC RDW Plt Count Lymph % (Auto) Lymph # (Auto) [place] # (Auto) Baso # (Auto) Seg Neutrophils % Seg Neuts % (Manual) Lymphocytes % (Manual) Nucleated RBC % Seg Neutrophils # Seg Neutrophils # Man Lymphocytes # (Manual) Monocytes # (Manual) PT INR APTT ABG pH POC ABG pO2 ABG pO2 ABG HCO3 ABG O2 Saturation ABG Base Excess ABG Hemoglobin ABG Potassium ABG Chloride ABG Glucose Oxyhemoglobin Sodium Potassium 3.0 L 3.4 L Chloride 107.2 H Carbon Dioxide 14 L 13 L BUN 59 H 67 H Creatinine 4.8 H 5.1 H Glucose 341 H 371 H POC Glucose 394 H Calcium 7.0 L 7.8 L Phosphorus Magnesium Alkaline Phosphatase Lactate Dehydrogenase Total Creatine Kinase Troponin T C-Reactive Protein Total Protein Albumin LDL Cholesterol Direct HDL Cholesterol Arterial Blood Glucose Arterial Blood Ionized Calcium Urine WBC (Auto) Urine Creatinine Ur Creatinine 24 Hour Urine Total Protein Crossmatch 03/18/20 03/18/20 03/19/20 19:21 23:00 01:32 EST WBC RBC Hgb Hct MCV MCHC RDW Plt Count Lymph % (Auto) Lymph # (Auto) [place] # (Auto) Baso # (Auto) Seg Neutrophils % Seg Neuts % (Manual) Lymphocytes % (Manual) Nucleated RBC % Seg Neutrophils # Seg Neutrophils # Man Lymphocytes # (Manual) Monocytes # (Manual) PT INR APTT ABG pH POC ABG pO2 ABG pO2 ABG HCO3 ABG O2 Saturation ABG Base Excess ABG Hemoglobin ABG Potassium ABG Chloride ABG Glucose Oxyhemoglobin Sodium Potassium Chloride Carbon Dioxide BUN Creatinine Glucose POC Glucose 453 H 360 H 338 H Calcium Phosphorus Magnesium Alkaline Phosphatase Lactate Dehydrogenase Total Creatine Kinase Troponin T C-Reactive Protein Total Protein Albumin LDL Cholesterol Direct HDL Cholesterol Arterial Blood Glucose Arterial Blood Ionized Calcium Urine WBC (Auto) Urine Creatinine Ur Creatinine 24 Hour Urine Total Protein Crossmatch 03/19/20 03/19/20 03/19/20 04:10 05:10 05:10 WBC 25.8 H RBC 3.61 L Hgb 10.9 L D Hct MCV 100 H MCHC 30 L RDW 19.1 H Plt Count Lymph % (Auto) Lymph # (Auto) [place] # (Auto) Baso # (Auto) Seg Neutrophils % Seg Neuts % (Manual) Lymphocytes % (Manual) Nucleated RBC % Seg Neutrophils # Seg Neutrophils # Man Lymphocytes # (Manual) Monocytes # (Manual) PT INR APTT ABG pH 7.309 L POC ABG pO2 ABG pO2 69.4 L ABG HCO3 17.9 L ABG O2 Saturation 92.4 L ABG Base Excess -7.6 L ABG Hemoglobin 8.1 L ABG Potassium ABG Chloride ABG Glucose Oxyhemoglobin 90.8 L Sodium Potassium Chloride Carbon Dioxide BUN Creatinine Glucose POC Glucose Calcium Phosphorus 5.60 H Magnesium Alkaline Phosphatase Lactate Dehydrogenase Total Creatine Kinase Troponin T C-Reactive Protein Total Protein Albumin LDL Cholesterol Direct HDL Cholesterol Arterial Blood Glucose Arterial Blood Ionized Calcium Urine WBC (Auto) Urine Creatinine Ur Creatinine 24 Hour Urine Total Protein Crossmatch 03/19/20 03/19/20 03/19/20 10:00 11:22 Unknown WBC RBC Hgb Hct MCV MCHC RDW Plt Count Lymph % (Auto) Lymph # (Auto) [place] # (Auto) Baso # (Auto) Seg Neutrophils % Seg Neuts % (Manual) Lymphocytes % (Manual) Nucleated RBC % Seg Neutrophils # Seg Neutrophils # Man Lymphocytes # (Manual) Monocytes # (Manual) PT 15.3 H INR 1.18 H APTT ABG pH POC ABG pO2 ABG pO2 ABG HCO3 ABG O2 Saturation ABG Base Excess ABG Hemoglobin ABG Potassium ABG Chloride ABG Glucose Oxyhemoglobin Sodium Potassium 3.0 L Chloride Carbon Dioxide BUN 69 H Creatinine 5.4 H Glucose 250 H POC Glucose 274 H Calcium 7.9 L Phosphorus Magnesium Alkaline Phosphatase Lactate Dehydrogenase Total Creatine Kinase Troponin T C-Reactive Protein Total Protein Albumin LDL Cholesterol Direct HDL Cholesterol Arterial Blood Glucose Arterial Blood Ionized Calcium Urine WBC (Auto) Urine Creatinine Ur Creatinine 24 Hour Urine Total Protein Crossmatch 03/20/20 03/20/20 03/20/20 01:56 05:22 06:35 WBC 27.5 H RBC 2.57 L Hgb 7.9 L D Hct 23.3 L D MCV MCHC RDW 17.7 H Plt Count Lymph % (Auto) Lymph # (Auto) [place] # (Auto) Baso # (Auto) Seg Neutrophils % Seg Neuts % (Manual) Lymphocytes % (Manual) Nucleated RBC % Seg Neutrophils # Seg Neutrophils # Man Lymphocytes # (Manual) Monocytes # (Manual) PT INR APTT ABG pH POC ABG pO2 ABG pO2 ABG HCO3 ABG O2 Saturation ABG Base Excess ABG Hemoglobin ABG Potassium ABG Chloride ABG Glucose Oxyhemoglobin Sodium Potassium Chloride Carbon Dioxide BUN Creatinine Glucose POC Glucose 145 H 181 H Calcium Phosphorus Magnesium Alkaline Phosphatase Lactate Dehydrogenase Total Creatine Kinase Troponin T C-Reactive Protein Total Protein Albumin LDL Cholesterol Direct HDL Cholesterol Arterial Blood Glucose Arterial Blood Ionized Calcium Urine WBC (Auto) Urine Creatinine Ur Creatinine 24 Hour Urine Total Protein Crossmatch 03/20/20 03/20/20 03/20/20 06:35 12:10 13:30 WBC RBC Hgb Hct MCV MCHC RDW Plt Count Lymph % (Auto) Lymph # (Auto) [place] # (Auto) Baso # (Auto) Seg Neutrophils % Seg Neuts % (Manual) Lymphocytes % (Manual) Nucleated RBC % Seg Neutrophils # Seg Neutrophils # Man Lymphocytes # (Manual) Monocytes # (Manual) PT INR APTT ABG pH POC ABG pO2 ABG pO2 ABG HCO3 ABG O2 Saturation ABG Base Excess ABG Hemoglobin ABG Potassium ABG Chloride ABG Glucose Oxyhemoglobin Sodium Potassium 2.9 L* Chloride Carbon Dioxide BUN 69 H Creatinine 5.1 H Glucose 146 H POC Glucose 164 H Calcium 8.2 L Phosphorus 5.40 H Magnesium Alkaline Phosphatase Lactate Dehydrogenase Total Creatine Kinase Troponin T C-Reactive Protein Total Protein Albumin LDL Cholesterol Direct HDL Cholesterol Arterial Blood Glucose Arterial Blood Ionized Calcium Urine WBC (Auto) 153.0 H Urine Creatinine Ur Creatinine 24 Hour Urine Total Protein Crossmatch 03/20/20 03/20/20 03/20/20 16:00 16:35 17:23 WBC RBC Hgb Hct MCV MCHC RDW Plt Count Lymph % (Auto) Lymph # (Auto) [place] # (Auto) Baso # (Auto) Seg Neutrophils % Seg Neuts % (Manual) Lymphocytes % (Manual) Nucleated RBC % Seg Neutrophils # Seg Neutrophils # Man Lymphocytes # (Manual) Monocytes # (Manual) PT INR APTT ABG pH POC ABG pO2 ABG pO2 63.9 L ABG HCO3 ABG O2 Saturation 90.9 L ABG Base Excess -2.6 L ABG Hemoglobin 9.5 L ABG Potassium ABG Chloride ABG Glucose Oxyhemoglobin 89.3 L Sodium 146 H Potassium 3.3 L Chloride Carbon Dioxide BUN 72 H Creatinine 5.1 H Glucose 150 H POC Glucose 191 H Calcium 8.2 L Phosphorus Magnesium Alkaline Phosphatase Lactate Dehydrogenase Total Creatine Kinase Troponin T C-Reactive Protein Total Protein Albumin LDL Cholesterol Direct HDL Cholesterol Arterial Blood Glucose Arterial Blood Ionized Calcium Urine WBC (Auto) Urine Creatinine Ur Creatinine 24 Hour Urine Total Protein Crossmatch 03/21/20 03/21/20 03/21/20 00:48 03:55 03:55 WBC 22.4 H RBC 2.06 L Hgb 6.3 L Hct 19.2 L* MCV MCHC RDW 17.7 H Plt Count 86 L Lymph % (Auto) Lymph # (Auto) [place] # (Auto) Baso # (Auto) Seg Neutrophils % Seg Neuts % (Manual) Lymphocytes % (Manual) Nucleated RBC % Seg Neutrophils # Seg Neutrophils # Man Lymphocytes # (Manual) Monocytes # (Manual) PT INR APTT ABG pH POC ABG pO2 ABG pO2 ABG HCO3 ABG O2 Saturation ABG Base Excess ABG Hemoglobin ABG Potassium ABG Chloride ABG Glucose Oxyhemoglobin Sodium 148 H Potassium 2.8 L* Chloride 108.2 H Carbon Dioxide BUN 52 H Creatinine 3.8 H Glucose 130 H POC Glucose 158 H Calcium 7.6 L Phosphorus Magnesium Alkaline Phosphatase Lactate Dehydrogenase Total Creatine Kinase Troponin T C-Reactive Protein Total Protein Albumin LDL Cholesterol Direct HDL Cholesterol Arterial Blood Glucose Arterial Blood Ionized Calcium Urine WBC (Auto) Urine Creatinine Ur Creatinine 24 Hour Urine Total Protein Crossmatch 03/21/20 03/21/20 03/21/20 05:37 06:43 09:15 WBC RBC Hgb Hct MCV MCHC RDW Plt Count Lymph % (Auto) Lymph # (Auto) [place] # (Auto) Baso # (Auto) Seg Neutrophils % Seg Neuts % (Manual) Lymphocytes % (Manual) Nucleated RBC % Seg Neutrophils # Seg Neutrophils # Man Lymphocytes # (Manual) Monocytes # (Manual) PT INR APTT ABG pH POC ABG pO2 ABG pO2 ABG HCO3 ABG O2 Saturation ABG Base Excess ABG Hemoglobin ABG Potassium ABG Chloride ABG Glucose Oxyhemoglobin Sodium Potassium 3.5 L D Chloride Carbon Dioxide BUN 56 H Creatinine 4.3 H Glucose 104 H POC Glucose 159 H Calcium Phosphorus Magnesium Alkaline Phosphatase Lactate Dehydrogenase Total Creatine Kinase Troponin T C-Reactive Protein Total Protein Albumin LDL Cholesterol Direct HDL Cholesterol Arterial Blood Glucose Arterial Blood Ionized Calcium Urine WBC (Auto) Urine Creatinine Ur Creatinine 24 Hour Urine Total Protein Crossmatch See Detail 03/21/20 03/21/20 03/22/20 12:55 17:26 00:16 WBC RBC Hgb Hct MCV MCHC RDW Plt Count Lymph % (Auto) Lymph # (Auto) [place] # (Auto) Baso # (Auto) Seg Neutrophils % Seg Neuts % (Manual) Lymphocytes % (Manual) Nucleated RBC % Seg Neutrophils # Seg Neutrophils # Man Lymphocytes # (Manual) Monocytes # (Manual) PT INR APTT ABG pH POC ABG pO2 ABG pO2 ABG HCO3 ABG O2 Saturation ABG Base Excess ABG Hemoglobin ABG Potassium ABG Chloride ABG Glucose Oxyhemoglobin Sodium Potassium Chloride Carbon Dioxide BUN Creatinine Glucose POC Glucose 157 H 128 H 148 H Calcium Phosphorus Magnesium Alkaline Phosphatase Lactate Dehydrogenase Total Creatine Kinase Troponin T C-Reactive Protein Total Protein Albumin LDL Cholesterol Direct HDL Cholesterol Arterial Blood Glucose Arterial Blood Ionized Calcium Urine WBC (Auto) Urine Creatinine Ur Creatinine 24 Hour Urine Total Protein Crossmatch 03/22/20 03/22/20 03/22/20 04:00 04:43 05:00 WBC 26.2 H RBC 3.16 L Hgb 9.6 L D Hct 29.1 L D MCV MCHC RDW 18.2 H Plt Count 86 L Lymph % (Auto) Lymph # (Auto) [place] # (Auto) Baso # (Auto) Seg Neutrophils % Seg Neuts % (Manual) Lymphocytes % (Manual) Nucleated RBC % Seg Neutrophils # Seg Neutrophils # Man Lymphocytes # (Manual) Monocytes # (Manual) PT INR APTT ABG pH POC ABG pO2 ABG pO2 ABG HCO3 ABG O2 Saturation ABG Base Excess ABG Hemoglobin ABG Potassium ABG Chloride ABG Glucose Oxyhemoglobin Sodium Potassium 3.5 L Chloride Carbon Dioxide BUN 47 H Creatinine 3.3 H Glucose 171 H POC Glucose Calcium 8.3 L Phosphorus Magnesium 1.60 L Alkaline Phosphatase Lactate Dehydrogenase Total Creatine Kinase Troponin T C-Reactive Protein Total Protein Albumin LDL Cholesterol Direct HDL Cholesterol Arterial Blood Glucose Arterial Blood Ionized Calcium Urine WBC (Auto) Urine Creatinine Ur Creatinine 24 Hour Urine Total Protein Crossmatch 03/22/20 03/22/20 03/22/20 05:41 12:18 17:29 WBC RBC Hgb Hct MCV MCHC RDW Plt Count Lymph % (Auto) Lymph # (Auto) [place] # (Auto) Baso # (Auto) Seg Neutrophils % Seg Neuts % (Manual) Lymphocytes % (Manual) Nucleated RBC % Seg Neutrophils # Seg Neutrophils # Man Lymphocytes # (Manual) Monocytes # (Manual) PT INR APTT ABG pH POC ABG pO2 ABG pO2 ABG HCO3 ABG O2 Saturation ABG Base Excess ABG Hemoglobin ABG Potassium ABG Chloride ABG Glucose Oxyhemoglobin Sodium Potassium Chloride Carbon Dioxide BUN Creatinine Glucose POC Glucose 183 H 129 H 184 H Calcium Phosphorus Magnesium Alkaline Phosphatase Lactate Dehydrogenase Total Creatine Kinase Troponin T C-Reactive Protein Total Protein Albumin LDL Cholesterol Direct HDL Cholesterol Arterial Blood Glucose Arterial Blood Ionized Calcium Urine WBC (Auto) Urine Creatinine Ur Creatinine 24 Hour Urine Total Protein Crossmatch 1103/23/20 03/23/20 19:13 00:22 06:09 WBC RBC Hgb Hct MCV MCHC RDW Plt Count Lymph % (Auto) Lymph # (Auto) [place] # (Auto) Baso # (Auto) Seg Neutrophils % Seg Neuts % (Manual) Lymphocytes % (Manual) Nucleated RBC % Seg Neutrophils # Seg Neutrophils # Man Lymphocytes # (Manual) Monocytes # (Manual) PT INR APTT 91.0 H* ABG pH POC ABG pO2 ABG pO2 ABG HCO3 ABG O2 Saturation ABG Base Excess ABG Hemoglobin ABG Potassium ABG Chloride ABG Glucose Oxyhemoglobin Sodium Potassium Chloride Carbon Dioxide BUN Creatinine Glucose POC Glucose 159 H 166 H Calcium Phosphorus Magnesium Alkaline Phosphatase Lactate Dehydrogenase Total Creatine Kinase Troponin T C-Reactive Protein Total Protein Albumin LDL Cholesterol Direct HDL Cholesterol Arterial Blood Glucose Arterial Blood Ionized Calcium Urine WBC (Auto) Urine Creatinine Ur Creatinine 24 Hour Urine Total Protein Crossmatch 03/23/20 03/23/20 03/23/20 09:35 09:35 09:35 WBC 26.9 H RBC 3.60 L Hgb 10.7 L Hct 32.7 L MCV MCHC RDW 18.9 H Plt Count 98 L Lymph % (Auto) Lymph # (Auto) [place] # (Auto) Baso # (Auto) Seg Neutrophils % Seg Neuts % (Manual) 94.0 H Lymphocytes % (Manual) 2.0 L Nucleated RBC % 1.0 H Seg Neutrophils # Seg Neutrophils # Man 25.3 H Lymphocytes # (Manual) 0.5 L Monocytes # (Manual) PT INR APTT ABG pH POC ABG pO2 ABG pO2 ABG HCO3 ABG O2 Saturation ABG Base Excess ABG Hemoglobin ABG Potassium ABG Chloride ABG Glucose Oxyhemoglobin Sodium Potassium 3.5 L Chloride Carbon Dioxide BUN 61 H Creatinine 3.7 H Glucose 148 H POC Glucose Calcium Phosphorus 4.90 H D Magnesium Alkaline Phosphatase Lactate Dehydrogenase Total Creatine Kinase Troponin T C-Reactive Protein Total Protein Albumin LDL Cholesterol Direct HDL Cholesterol Arterial Blood Glucose Arterial Blood Ionized Calcium Urine WBC (Auto) Urine Creatinine Ur Creatinine 24 Hour Urine Total Protein Crossmatch 03/23/20 03/23/20 03/23/20 09:35 11:56 17:07 WBC RBC Hgb Hct MCV MCHC RDW Plt Count Lymph % (Auto) Lymph # (Auto) [place] # (Auto) Baso # (Auto) Seg Neutrophils % Seg Neuts % (Manual) Lymphocytes % (Manual) Nucleated RBC % Seg Neutrophils # Seg Neutrophils # Man Lymphocytes # (Manual) Monocytes # (Manual) PT INR APTT 115.2 H* 74.5 H* ABG pH POC ABG pO2 ABG pO2 ABG HCO3 ABG O2 Saturation ABG Base Excess ABG Hemoglobin ABG Potassium ABG Chloride ABG Glucose Oxyhemoglobin Sodium Potassium Chloride Carbon Dioxide BUN Creatinine Glucose POC Glucose 159 H Calcium Phosphorus Magnesium Alkaline Phosphatase Lactate Dehydrogenase Total Creatine Kinase Troponin T C-Reactive Protein Total Protein Albumin LDL Cholesterol Direct HDL Cholesterol Arterial Blood Glucose Arterial Blood Ionized Calcium Urine WBC (Auto) Urine Creatinine Ur Creatinine 24 Hour Urine Total Protein Crossmatch 03/23/20 03/23/20 03/23/20 17:34 21:45 22:24 WBC RBC Hgb Hct MCV MCHC RDW Plt Count Lymph % (Auto) Lymph # (Auto) [place] # (Auto) Baso # (Auto) Seg Neutrophils % Seg Neuts % (Manual) Lymphocytes % (Manual) Nucleated RBC % Seg Neutrophils # Seg Neutrophils # Man Lymphocytes # (Manual) Monocytes # (Manual) PT INR APTT 112.5 H* ABG pH POC ABG pO2 ABG pO2 ABG HCO3 ABG O2 Saturation ABG Base Excess ABG Hemoglobin ABG Potassium ABG Chloride ABG Glucose Oxyhemoglobin Sodium Potassium Chloride Carbon Dioxide BUN Creatinine Glucose POC Glucose 217 H 160 H Calcium Phosphorus Magnesium Alkaline Phosphatase Lactate Dehydrogenase Total Creatine Kinase Troponin T C-Reactive Protein Total Protein Albumin LDL Cholesterol Direct HDL Cholesterol Arterial Blood Glucose Arterial Blood Ionized Calcium Urine WBC (Auto) Urine Creatinine Ur Creatinine 24 Hour Urine Total Protein Crossmatch 03/24/20 03/24/20 03/24/20 01:13 05:19 05:19 WBC 28.6 H RBC 3.57 L Hgb 10.7 L Hct 33.3 L MCV MCHC RDW 18.4 H Plt Count 94 L Lymph % (Auto) 4.0 L Lymph # (Auto) 1.1 L [place] # (Auto) 0.9 H Baso # (Auto) Seg Neutrophils % Seg Neuts % (Manual) Lymphocytes % (Manual) Nucleated RBC % Seg Neutrophils # 26.4 H Seg Neutrophils # Man Lymphocytes # (Manual) Monocytes # (Manual) PT INR APTT ABG pH POC ABG pO2 ABG pO2 ABG HCO3 ABG O2 Saturation ABG Base Excess ABG Hemoglobin ABG Potassium ABG Chloride ABG Glucose Oxyhemoglobin Sodium 146 H Potassium 3.5 L Chloride Carbon Dioxide BUN 71 H Creatinine 3.9 H Glucose 141 H POC Glucose 186 H Calcium 8.3 L Phosphorus 5.80 H Magnesium Alkaline Phosphatase Lactate Dehydrogenase Total Creatine Kinase Troponin T C-Reactive Protein Total Protein Albumin LDL Cholesterol Direct HDL Cholesterol Arterial Blood Glucose Arterial Blood Ionized Calcium Urine WBC (Auto) Urine Creatinine Ur Creatinine 24 Hour Urine Total Protein Crossmatch 03/24/20 03/24/20 03/24/20 05:19 06:35 12:24 WBC RBC Hgb Hct MCV MCHC RDW Plt Count Lymph % (Auto) Lymph # (Auto) [place] # (Auto) Baso # (Auto) Seg Neutrophils % Seg Neuts % (Manual) Lymphocytes % (Manual) Nucleated RBC % Seg Neutrophils # Seg Neutrophils # Man Lymphocytes # (Manual) Monocytes # (Manual) PT INR APTT 91.5 H* ABG pH POC ABG pO2 ABG pO2 ABG HCO3 ABG O2 Saturation ABG Base Excess ABG Hemoglobin ABG Potassium ABG Chloride ABG Glucose Oxyhemoglobin Sodium Potassium Chloride Carbon Dioxide BUN Creatinine Glucose POC Glucose 153 H 162 H Calcium Phosphorus Magnesium Alkaline Phosphatase Lactate Dehydrogenase Total Creatine Kinase Troponin T C-Reactive Protein Total Protein Albumin LDL Cholesterol Direct HDL Cholesterol Arterial Blood Glucose Arterial Blood Ionized Calcium Urine WBC (Auto) Urine Creatinine Ur Creatinine 24 Hour Urine Total Protein Crossmatch 03/24/20 03/24/20 03/25/20 19:50 23:56 05:11 WBC RBC Hgb Hct MCV MCHC RDW Plt Count Lymph % (Auto) Lymph # (Auto) [place] # (Auto) Baso # (Auto) Seg Neutrophils % Seg Neuts % (Manual) Lymphocytes % (Manual) Nucleated RBC % Seg Neutrophils # Seg Neutrophils # Man Lymphocytes # (Manual) Monocytes # (Manual) PT INR APTT 75.3 H* ABG pH POC ABG pO2 ABG pO2 ABG HCO3 ABG O2 Saturation ABG Base Excess ABG Hemoglobin ABG Potassium ABG Chloride ABG Glucose Oxyhemoglobin Sodium Potassium Chloride Carbon Dioxide BUN Creatinine Glucose POC Glucose 193 H 139 H Calcium Phosphorus Magnesium Alkaline Phosphatase Lactate Dehydrogenase Total Creatine Kinase Troponin T C-Reactive Protein Total Protein Albumin LDL Cholesterol Direct HDL Cholesterol Arterial Blood Glucose Arterial Blood Ionized Calcium Urine WBC (Auto) Urine Creatinine Ur Creatinine 24 Hour Urine Total Protein Crossmatch 11/12/0503/25/20 03/25/20 06:25 15:39 15:55 WBC RBC Hgb Hct MCV MCHC RDW Plt Count Lymph % (Auto) Lymph # (Auto) [place] # (Auto) Baso # (Auto) Seg Neutrophils % Seg Neuts % (Manual) Lymphocytes % (Manual) Nucleated RBC % Seg Neutrophils # Seg Neutrophils # Man Lymphocytes # (Manual) Monocytes # (Manual) PT INR APTT 79.3 H* ABG pH POC ABG pO2 ABG pO2 ABG HCO3 ABG O2 Saturation ABG Base Excess ABG Hemoglobin ABG Potassium ABG Chloride ABG Glucose Oxyhemoglobin Sodium Potassium Chloride Carbon Dioxide BUN 54 H Creatinine 3.1 H Glucose 112 H POC Glucose 111 H Calcium 8.3 L Phosphorus 4.90 H Magnesium Alkaline Phosphatase Lactate Dehydrogenase Total Creatine Kinase Troponin T C-Reactive Protein Total Protein Albumin LDL Cholesterol Direct HDL Cholesterol Arterial Blood Glucose Arterial Blood Ionized Calcium Urine WBC (Auto) Urine Creatinine Ur Creatinine 24 Hour Urine Total Protein Crossmatch 03/25/20 03/26/20 03/26/20 23:40 00:32 06:31 WBC RBC Hgb Hct MCV MCHC RDW Plt Count Lymph % (Auto) Lymph # (Auto) [place] # (Auto) Baso # (Auto) Seg Neutrophils % Seg Neuts % (Manual) Lymphocytes % (Manual) Nucleated RBC % Seg Neutrophils # Seg Neutrophils # Man Lymphocytes # (Manual) Monocytes # (Manual) PT INR APTT 83.1 H* ABG pH POC ABG pO2 ABG pO2 ABG HCO3 ABG O2 Saturation ABG Base Excess ABG Hemoglobin ABG Potassium ABG Chloride ABG Glucose Oxyhemoglobin Sodium Potassium 3.2 L Chloride Carbon Dioxide BUN 63 H Creatinine 3.6 H Glucose POC Glucose 115 H Calcium 8.1 L Phosphorus 5.60 H Magnesium Alkaline Phosphatase Lactate Dehydrogenase Total Creatine Kinase Troponin T C-Reactive Protein Total Protein Albumin LDL Cholesterol Direct HDL Cholesterol Arterial Blood Glucose Arterial Blood Ionized Calcium Urine WBC (Auto) Urine Creatinine Ur Creatinine 24 Hour Urine Total Protein Crossmatch 03/26/20 03/26/20 03/26/20 13:23 13:33 14:18 WBC RBC Hgb Hct MCV MCHC RDW Plt Count Lymph % (Auto) Lymph # (Auto) [place] # (Auto) Baso # (Auto) Seg Neutrophils % Seg Neuts % (Manual) Lymphocytes % (Manual) Nucleated RBC % Seg Neutrophils # Seg Neutrophils # Man Lymphocytes # (Manual) Monocytes # (Manual) PT INR APTT 75.5 H* ABG pH POC ABG pO2 ABG pO2 ABG HCO3 ABG O2 Saturation ABG Base Excess ABG Hemoglobin ABG Potassium ABG Chloride ABG Glucose Oxyhemoglobin Sodium Potassium Chloride Carbon Dioxide BUN Creatinine Glucose POC Glucose 107 H Calcium Phosphorus Magnesium Alkaline Phosphatase Lactate Dehydrogenase Total Creatine Kinase Troponin T C-Reactive Protein Total Protein Albumin LDL Cholesterol Direct HDL Cholesterol Arterial Blood Glucose Arterial Blood Ionized Calcium Urine WBC (Auto) Urine Creatinine 63.7 H Ur Creatinine 24 Hour 0.4 L Urine Total Protein Crossmatch 03/27/20 03/27/20 03/27/20 05:26 11:22 12:08 WBC RBC Hgb Hct MCV MCHC RDW Plt Count Lymph % (Auto) Lymph # (Auto) [place] # (Auto) Baso # (Auto) Seg Neutrophils % Seg Neuts % (Manual) Lymphocytes % (Manual) Nucleated RBC % Seg Neutrophils # Seg Neutrophils # Man Lymphocytes # (Manual) Monocytes # (Manual) PT INR APTT ABG pH POC ABG pO2 ABG pO2 ABG HCO3 ABG O2 Saturation ABG Base Excess ABG Hemoglobin ABG Potassium ABG Chloride ABG Glucose Oxyhemoglobin Sodium Potassium Chloride Carbon Dioxide BUN 70 H Creatinine 3.9 H Glucose 67 L POC Glucose 44 L Calcium 8.3 L Phosphorus 6.40 H Magnesium Alkaline Phosphatase Lactate Dehydrogenase 255 H Total Creatine Kinase Troponin T C-Reactive Protein Total Protein Albumin LDL Cholesterol Direct HDL Cholesterol Arterial Blood Glucose Arterial Blood Ionized Calcium Urine WBC (Auto) Urine Creatinine Ur Creatinine 24 Hour Urine Total Protein Crossmatch 03/27/20 03/27/20 03/27/20 12:29 14:31 16:00 WBC RBC Hgb Hct MCV MCHC RDW Plt Count Lymph % (Auto) Lymph # (Auto) [place] # (Auto) Baso # (Auto) Seg Neutrophils % Seg Neuts % (Manual) Lymphocytes % (Manual) Nucleated RBC % Seg Neutrophils # Seg Neutrophils # Man Lymphocytes # (Manual) Monocytes # (Manual) PT INR APTT 74.1 H* ABG pH POC ABG pO2 ABG pO2 ABG HCO3 ABG O2 Saturation ABG Base Excess ABG Hemoglobin ABG Potassium ABG Chloride ABG Glucose Oxyhemoglobin Sodium Potassium Chloride Carbon Dioxide BUN Creatinine Glucose POC Glucose 53 L 132 H Calcium Phosphorus Magnesium Alkaline Phosphatase Lactate Dehydrogenase Total Creatine Kinase Troponin T C-Reactive Protein Total Protein Albumin LDL Cholesterol Direct HDL Cholesterol Arterial Blood Glucose Arterial Blood Ionized Calcium Urine WBC (Auto) Urine Creatinine Ur Creatinine 24 Hour Urine Total Protein Crossmatch 03/27/20 03/27/20 03/27/20 16:00 16:00 17:07 WBC 14.8 H RBC 3.30 L Hgb 10.2 L Hct 30.8 L MCV MCHC RDW 17.6 H Plt Count 101 L Lymph % (Auto) Lymph # (Auto) [place] # (Auto) Baso # (Auto) Seg Neutrophils % Seg Neuts % (Manual) 93.0 H Lymphocytes % (Manual) 4.0 L Nucleated RBC % Seg Neutrophils # Seg Neutrophils # Man 13.8 H Lymphocytes # (Manual) 0.6 L Monocytes # (Manual) PT INR APTT ABG pH POC ABG pO2 ABG pO2 ABG HCO3 ABG O2 Saturation ABG Base Excess ABG Hemoglobin ABG Potassium ABG Chloride ABG Glucose Oxyhemoglobin Sodium Potassium Chloride Carbon Dioxide BUN Creatinine Glucose POC Glucose 154 H Calcium Phosphorus Magnesium Alkaline Phosphatase Lactate Dehydrogenase Total Creatine Kinase Troponin T C-Reactive Protein 3.20 H Total Protein Albumin LDL Cholesterol Direct HDL Cholesterol Arterial Blood Glucose Arterial Blood Ionized Calcium Urine WBC (Auto) Urine Creatinine Ur Creatinine 24 Hour Urine Total Protein Crossmatch 03/27/20 03/28/20 03/28/20 21:38 00:52 05:49 WBC 17.1 H RBC 3.05 L Hgb 9.4 L Hct 28.2 L MCV MCHC RDW 17.0 H Plt Count 98 L Lymph % (Auto) 4.3 L Lymph # (Auto) 0.7 L [place] # (Auto) Baso # (Auto) 0.2 H Seg Neutrophils % 89.8 H Seg Neuts % (Manual) Lymphocytes % (Manual) Nucleated RBC % Seg Neutrophils # 15.4 H Seg Neutrophils # Man Lymphocytes # (Manual) Monocytes # (Manual) PT INR APTT ABG pH POC ABG pO2 ABG pO2 ABG HCO3 ABG O2 Saturation ABG Base Excess ABG Hemoglobin ABG Potassium ABG Chloride ABG Glucose Oxyhemoglobin Sodium Potassium 3.3 L Chloride Carbon Dioxide BUN 52 H Creatinine 3.3 H Glucose POC Glucose 191 H Calcium 8.1 L Phosphorus 6.10 H Magnesium Alkaline Phosphatase Lactate Dehydrogenase Total Creatine Kinase Troponin T C-Reactive Protein Total Protein Albumin LDL Cholesterol Direct HDL Cholesterol Arterial Blood Glucose Arterial Blood Ionized Calcium Urine WBC (Auto) Urine Creatinine Ur Creatinine 24 Hour Urine Total Protein Crossmatch 03/28/20 03/29/20 03/29/20 05:49 00:34 06:26 WBC 17.7 H RBC 3.21 L Hgb 9.8 L Hct 30.6 L MCV 95 H MCHC RDW 17.4 H Plt Count 83 L Lymph % (Auto) 11.7 L Lymph # (Auto) [place] # (Auto) 1.1 H Baso # (Auto) Seg Neutrophils % 80.6 H Seg Neuts % (Manual) Lymphocytes % (Manual) Nucleated RBC % Seg Neutrophils # 14.3 H Seg Neutrophils # Man Lymphocytes # (Manual) Monocytes # (Manual) PT INR APTT 69.2 H* ABG pH POC ABG pO2 ABG pO2 ABG HCO3 ABG O2 Saturation ABG Base Excess ABG Hemoglobin ABG Potassium ABG Chloride ABG Glucose Oxyhemoglobin Sodium Potassium 3.2 L Chloride Carbon Dioxide BUN 57 H Creatinine 3.7 H Glucose POC Glucose Calcium 8.1 L Phosphorus 7.20 H Magnesium Alkaline Phosphatase Lactate Dehydrogenase Total Creatine Kinase Troponin T C-Reactive Protein Total Protein Albumin LDL Cholesterol Direct HDL Cholesterol Arterial Blood Glucose Arterial Blood Ionized Calcium Urine WBC (Auto) Urine Creatinine Ur Creatinine 24 Hour Urine Total Protein Crossmatch 03/29/20 03/29/20 03/30/20 06:26 21:30 00:47 WBC RBC 2.60 L Hgb 8.1 L Hct 24.9 L MCV 96 H MCHC RDW 17.6 H Plt Count 76 L Lymph % (Auto) 7.5 L Lymph # (Auto) 0.8 L [place] # (Auto) Baso # (Auto) Seg Neutrophils % 84.8 H Seg Neuts % (Manual) Lymphocytes % (Manual) Nucleated RBC % Seg Neutrophils # 9.1 H Seg Neutrophils # Man Lymphocytes # (Manual) Monocytes # (Manual) PT INR APTT 48.6 H ABG pH POC ABG pO2 ABG pO2 ABG HCO3 ABG O2 Saturation ABG Base Excess ABG Hemoglobin ABG Potassium ABG Chloride ABG Glucose Oxyhemoglobin Sodium Potassium Chloride Carbon Dioxide BUN Creatinine Glucose POC Glucose 171 H Calcium Phosphorus Magnesium Alkaline Phosphatase Lactate Dehydrogenase Total Creatine Kinase Troponin T C-Reactive Protein Total Protein Albumin LDL Cholesterol Direct HDL Cholesterol Arterial Blood Glucose Arterial Blood Ionized Calcium Urine WBC (Auto) Urine Creatinine Ur Creatinine 24 Hour Urine Total Protein Crossmatch 03/30/20 03/30/20 03/30/20 05:39 12:01 17:27 WBC RBC Hgb Hct MCV MCHC RDW Plt Count Lymph % (Auto) Lymph # (Auto) [place] # (Auto) Baso # (Auto) Seg Neutrophils % Seg Neuts % (Manual) Lymphocytes % (Manual) Nucleated RBC % Seg Neutrophils # Seg Neutrophils # Man Lymphocytes # (Manual) Monocytes # (Manual) PT INR APTT ABG pH POC ABG pO2 ABG pO2 ABG HCO3 ABG O2 Saturation ABG Base Excess ABG Hemoglobin ABG Potassium ABG Chloride ABG Glucose Oxyhemoglobin Sodium Potassium 2.7 L* Chloride Carbon Dioxide BUN 33 H Creatinine 2.8 H Glucose POC Glucose 163 H 137 H Calcium 7.6 L Phosphorus Magnesium Alkaline Phosphatase Lactate Dehydrogenase Total Creatine Kinase Troponin T C-Reactive Protein Total Protein Albumin LDL Cholesterol Direct HDL Cholesterol Arterial Blood Glucose Arterial Blood Ionized Calcium Urine WBC (Auto) Urine Creatinine Ur Creatinine 24 Hour Urine Total Protein Crossmatch 03/30/20 03/30/20 03/31/20 21:21 22:49 05:28 WBC RBC Hgb Hct MCV MCHC RDW Plt Count Lymph % (Auto) Lymph # (Auto) [place] # (Auto) Baso # (Auto) Seg Neutrophils % Seg Neuts % (Manual) Lymphocytes % (Manual) Nucleated RBC % Seg Neutrophils # Seg Neutrophils # Man Lymphocytes # (Manual) Monocytes # (Manual) PT INR APTT ABG pH POC ABG pO2 ABG pO2 ABG HCO3 ABG O2 Saturation ABG Base Excess ABG Hemoglobin ABG Potassium ABG Chloride ABG Glucose Oxyhemoglobin Sodium Potassium 2.9 L* Chloride 108.1 H Carbon Dioxide BUN 40 H Creatinine 3.2 H Glucose 151 H POC Glucose 327 H 231 H Calcium 7.8 L Phosphorus Magnesium Alkaline Phosphatase Lactate Dehydrogenase Total Creatine Kinase Troponin T C-Reactive Protein Total Protein Albumin LDL Cholesterol Direct HDL Cholesterol Arterial Blood Glucose Arterial Blood Ionized Calcium Urine WBC (Auto) Urine Creatinine Ur Creatinine 24 Hour Urine Total Protein Crossmatch 03/31/20 03/31/20 03/31/20 08:35 12:24 12:35 WBC RBC Hgb Hct MCV MCHC RDW Plt Count Lymph % (Auto) Lymph # (Auto) [place] # (Auto) Baso # (Auto) Seg Neutrophils % Seg Neuts % (Manual) Lymphocytes % (Manual) Nucleated RBC % Seg Neutrophils # Seg Neutrophils # Man Lymphocytes # (Manual) Monocytes # (Manual) PT INR APTT ABG pH POC ABG pO2 ABG pO2 ABG HCO3 ABG O2 Saturation ABG Base Excess ABG Hemoglobin ABG Potassium ABG Chloride ABG Glucose Oxyhemoglobin Sodium Potassium Chloride Carbon Dioxide BUN Creatinine Glucose POC Glucose 191 H 193 H Calcium Phosphorus Magnesium Alkaline Phosphatase Lactate Dehydrogenase Total Creatine Kinase Troponin T C-Reactive Protein Total Protein Albumin LDL Cholesterol Direct HDL Cholesterol Arterial Blood Glucose Arterial Blood Ionized Calcium Urine WBC (Auto) Urine Creatinine 82.8 H Ur Creatinine 24 Hour 0.6 L Urine Total Protein Crossmatch 03/31/20 04/01/20 04/01/20 22:32 05:13 08:44 WBC RBC Hgb Hct MCV MCHC RDW Plt Count Lymph % (Auto) Lymph # (Auto) [place] # (Auto) Baso # (Auto) Seg Neutrophils % Seg Neuts % (Manual) Lymphocytes % (Manual) Nucleated RBC % Seg Neutrophils # Seg Neutrophils # Man Lymphocytes # (Manual) Monocytes # (Manual) PT INR APTT ABG pH POC ABG pO2 ABG pO2 ABG HCO3 ABG O2 Saturation ABG Base Excess ABG Hemoglobin ABG Potassium ABG Chloride ABG Glucose Oxyhemoglobin Sodium Potassium Chloride 109.2 H Carbon Dioxide BUN 45 H Creatinine 3.3 H Glucose 110 H POC Glucose 182 H 116 H Calcium 7.9 L Phosphorus Magnesium Alkaline Phosphatase Lactate Dehydrogenase Total Creatine Kinase Troponin T C-Reactive Protein Total Protein Albumin LDL Cholesterol Direct HDL Cholesterol Arterial Blood Glucose Arterial Blood Ionized Calcium Urine WBC (Auto) Urine Creatinine Ur Creatinine 24 Hour Urine Total Protein Crossmatch 04/01/20 04/01/20 04/01/20 11:22 16:34 22:00 WBC RBC Hgb Hct MCV MCHC RDW Plt Count Lymph % (Auto) Lymph # (Auto) [place] # (Auto) Baso # (Auto) Seg Neutrophils % Seg Neuts % (Manual) Lymphocytes % (Manual) Nucleated RBC % Seg Neutrophils # Seg Neutrophils # Man Lymphocytes # (Manual) Monocytes # (Manual) PT INR APTT ABG pH POC ABG pO2 ABG pO2 ABG HCO3 ABG O2 Saturation ABG Base Excess ABG Hemoglobin ABG Potassium ABG Chloride ABG Glucose Oxyhemoglobin Sodium Potassium Chloride Carbon Dioxide BUN Creatinine Glucose POC Glucose 137 H 158 H 163 H Calcium Phosphorus Magnesium Alkaline Phosphatase Lactate Dehydrogenase Total Creatine Kinase Troponin T C-Reactive Protein Total Protein Albumin LDL Cholesterol Direct HDL Cholesterol Arterial Blood Glucose Arterial Blood Ionized Calcium Urine WBC (Auto) Urine Creatinine Ur Creatinine 24 Hour Urine Total Protein Crossmatch 04/02/20 04/02/20 04/02/20 04:16 08:42 12:16 WBC RBC Hgb Hct MCV MCHC RDW Plt Count Lymph % (Auto) Lymph # (Auto) [place] # (Auto) Baso # (Auto) Seg Neutrophils % Seg Neuts % (Manual) Lymphocytes % (Manual) Nucleated RBC % Seg Neutrophils # Seg Neutrophils # Man Lymphocytes # (Manual) Monocytes # (Manual) PT INR APTT ABG pH POC ABG pO2 ABG pO2 ABG HCO3 ABG O2 Saturation ABG Base Excess ABG Hemoglobin ABG Potassium ABG Chloride ABG Glucose Oxyhemoglobin Sodium Potassium Chloride 109.1 H Carbon Dioxide BUN 49 H Creatinine 3.6 H Glucose POC Glucose 123 H 200 H Calcium 7.9 L Phosphorus Magnesium Alkaline Phosphatase Lactate Dehydrogenase Total Creatine Kinase Troponin T C-Reactive Protein Total Protein Albumin LDL Cholesterol Direct HDL Cholesterol Arterial Blood Glucose Arterial Blood Ionized Calcium Urine WBC (Auto) Urine Creatinine Ur Creatinine 24 Hour Urine Total Protein Crossmatch Allied health notes reviewed: nursing
--- NOTE | 2020-04-02 17:51 | Progress Note ---
Assessment and Plan --Septic shock Due to C. difficile infection, this has resolved --C. difficile infection Continue p.o. vancomycin 250 mg every 6 hours for 14 days ID recommendations appreciated --Anemia OF Chronic Disease Monitor hemoglobin Transfused as needed to hemoglobin 7 --Electrolyte abnormalities-hypokalemia, hypomagnesemia-replete as needed --Recent ESBL E. coli bacteremia patient was discharged on ertapenem 1 g IV daily for 14 days end date supposed to be 03/20/2020 --Acute renal failure likely due to ischemic ATN Now placed on hemodialysis. Nephrology recommendations appreciated s/p Permacath placement on 03/29. Vascular following --Metabolic Acidosis Resolved. Discontinue sodium bicarb and monitor --Acute hypoxic Respiratory failure. Continue oxygen supplementation --Acute toxic metabolic encephalopathy Resolved --Ruled out COVID-19 --Hypothermia Resolved --Thrombocytopenia Possibly from ongoing infection vs HIT Trend platelets HIT antibody pending Argatroban for now Nephrology oncology on board --Leukocytosis Stress induced - steroids effect vs sepsis vs leukemia? Monitor for now Hematology oncology consulted --PT/OT-back to facility --DVT prophylaxis - Argatroban for now -- Patient is full code Brief History Patient is a 79-year-old male with a past medical history of encephalopathy, hypertension, generalized weakness, diabetes type 2, chronic lipidemia, DVT, respiratory failure with hypoxia, CVA, and CKD [facility] from [facility] with complaint of sepsis with hypotension, alteration mental status. Off note he was treated previously here for ESBL E. coli bacteremia from UTI on 03/02/2020, admitted now due to 24 hours history of generalized weakness and confusion a ssociated with subjective fever. Patient is unable to provide history, currently with lethargy on 3 pressors. Of note ESBL bacteremia was treated with ertapenem 1 g IV once a day for 14 days until 03/20/2020 via PICC line. On arrival, temperature 90, HR 62, RR 16, O2 sat 97, BP 76/33. Initial WBC 32.2. Hemoglobin 8.9. Creatinine 5.9. Urinalysis with 182 WBCs and large leukocyte esterase. 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 03/17: Patient also found to have acute kidney injury with acute tubular necrosis, toxic metabolic encephalopathy, metabolic acidosis and hypothermia. The patient is critically ill with a poor prognosis, sepsis protocol was initia rose with an ICU admission. Patient was seen by auto machinist pressors were increased with also bicarb drip started. Unfortunately bicarb drip had to be held due to PICC line compatibility. A new PICC line has been inserted this morning. Admitting physician did speak with the son and discussed prognosis. also called the son this morning who informs me that the brother who is physician is coming into town and will give us further recommendation on arrival. Patient has been started on a third pressor which is epinephrine at this time. To my examination awaiting nephrology evaluation. We will proceed with giving additional 2 L of fluids and also obtain a stat echocardiogram to see what patient's cardiac level is. Based on ejection fraction patient may benefit from dobutamine. Will place BiPAP on standby and if need be and family does not opposed to continued full code we will proceed with likely intubation so the patient can be adequately volume resuscitated. -Continue empiric antibiotic coverage. ID consultation. Critical care assistance and input noted. Fluid Resuscitation As Noted above Continue Diet. Change IV access for triple-lumen PICC line. Will follow cultures. We will also obtain wound care consultation. 03/18: Continue current management, may need dialysis but not a candidate for HD due to 3 Pressors. NO Diarrhea at this time. If not improving respiratory lopez may need Intubation. 03/19: Continue supportive care, mental status showing some improvement, still on BIPAP. BP improving will stop Epi and bring down to 2 pressors. Awaiting ECHO. IF continues to have worsening Renal function, May need transfer to [facility] if unable to perform HD. Patients son updated of current clinically status. 03/20: Right femoral catheter-vas cath Placed for HD. Hypokalemia to be corrected, will give Potassium 20meq. Continue IV abx, no growth so far noted, wean pressors as tolerated, may consider adding Midodrine. WBC trending down. Prior noted Ecoli Bactermia is not noted so far on the blood culture. Continue HD as tolerated, Sodium bicarb drip due to acidosis. 03/21. He has no complaints today. Patient continues to ask when he will be discharged. Labs showed persistent hypokalemia. Continue potassium replacement. Hemoglobin 6.0. Patient will get transfused 1 unit PRBC. 03/22. Hemoglobin stable today. Vascular surgery consulted for femoral line rep lacement 11/5. Patient seen in the BiPAP. Still has diarrhea and is on vancomycin. Afebrile overnight. Labs reviewed 03/24. Patient may need permacath placement on Friday. 24-hour urine collection ordered as per renal. Monitor rectal tube output closely. PT/OT 03/25. Patient seen and evaluated this morning. He has no complaints. Needs to have right femoral line removed permacath placed on Friday. Nephrology recommendations appreciated. 24-hour urine collection yet to commence as per RN. Steroids tapered off. 03/26. Patient seen and examined at bedside this morning. Has no complaints today. Plan is to have permacath placement tomorrow. He will need to have hemodialysis chair arrangement prior to discharge. team manager on the case. Hematology consulted for thrombocytopenia and leukocytosis. Patient remains on argatroban but will be held temporarily for procedure. 03/27. 79-year-old male admitted 11 days ago with lethargy and altered mental status. Patient found to have septic shock, started on antibiotics and transferred to the ICU. While in the ICU, patient was on pressors. Patient subsequently had ALEJANDRO which failed to improve with conservative measures for now is on hemodialysis. Patient had a right femoral line placed for hemodialysis at that time. Stay in the ICU was complicated with pressure medication infection patient is currently on vancomycin plan ID is following. Currently improved while in the ICU and was referred to the medical floors. Patient passed a swallow evaluation will started on diet. Patient also have thrombocytopenia and heparin was discontinued. Fondaparinux not possible as patient has renal disease. Patient is currently argatroban. Hematology is consulted as patient has leukocytosis from admission. Need to rule out CML. Although ongoing issues at this time is active C. difficile infection for which the patient is on vancomycin and ID is following, patient is to have permacath placement for hemodialysis and will need hemodialysis chair to be arranged prior to discharge. Patient will be going to a facility when hemodialysis chair has been set up. Patient seen and examined at bedside this morning. Plan to have permacath placement, Called patient's son on the number provided but no answer so I left a voicemail. 03/28: PermCath placement scheduled for tomorrow, continue antibiotic, continue supportive care. Patient would need LTAC/SNF placement. 03/29: Status post PermCath placement today, trimming caser consulted for LTAC/SNF placement. Patient also need outpatient dialysis set up. 03/30: Continue ABX per ID, replete electrolytes. Potassium level 2.7 today. Dialysis as scheduled, pending placement and outpatient dialysis set up. 03/31: On hold HD per renal, cont to follow BMP and renal function, pending placement 04/01: monitor off HD, replete electrolytes as needed. placement pending 04/02: planned for HD tomorrow, pending placement Subjective Date of service: 04/02/20 Principal diagnosis: Acute hypoxemic respiratory failure; Septic shock; Ac. encephalopathy; ALEJANDRO Interval history: Patient seen and examined Denies any shortness of breath or chest pain Discussed with RN at the bedside Continue to have loose stool, patient on rectal tube pending placement Objective - Exam Narrative Exam: GENERAL: well-developed obese -Emirati male lying on bed appeared to be in no discomfort. HEENT: Normocephalic. Atraumatic. No conjunctival congestion or icterus. Patient has moist mucous membranes. NECK: Supple. Trachea midline. CHEST/LUNGS: Clear to auscultated bilaterally, breathing nonlabored. No wheezes crackles or rhonchi. HEART/CARDIOVASCULAR: Regular in rate and rhythm. S1 and S2 positive. ABDOMEN: Abdomen is soft, nontender. Patient has normal bowel sounds. MUSCULOSKELETAL: Chronic venous changes bilateral lower ext. LUE welling NEUROLOGIC EXAM: Awake and alert SKIN: Multiple exfoliative rash, chronic skin color discoloration Psych: Cooperative. - Constitutional Vitals: Vital Signs - 12hr 04/02/20 04/02/20 04/02/20 09:04 10:00 12:11 Temperature 99.0 F 97.9 F Pulse Rate 88 98 H Respiratory 18 18 Rate Blood Pressure 128/76 147/68 O2 Sat by Pulse 98 100 100 Oximetry 04/02/20 17:19 Temperature 97.6 F Pulse Rate 84 Respiratory 18 Rate Blood Pressure 148/70 O2 Sat by Pulse 98 Oximetry - Labs CBC & Chem 7: 04/03/20 05:07 04/03/20 05:07 Labs: Abnormal lab results 03/31/20 04/01/20 04/02/20 Range/Units 12:24 22:00 04:16 Chloride 109.1 H (98-107) mmol/L BUN 49 H (9-20) mg/dL Creatinine 3.6 H (0.8-1.3) mg/dL POC Glucose 163 H (70-105) mg/dL Calcium 7.9 L (8.4-10.2) mg/dL Urine Creatinine 82.8 H (0.1-20.0) mg/dL Ur Creatinine 24 Hour 0.6 L (0.8-2.8) 04/02/20 04/02/20 04/02/20 Range/Units 08:42 12:16 16:56 Chloride (98-107) mmol/L BUN (9-20) mg/dL Creatinine (0.8-1.3) mg/dL POC Glucose 123 H 200 H 142 H (70-105) mg/dL Calcium (8.4-10.2) mg/dL Urine Creatinine (0.1-20.0) mg/dL Ur Creatinine 24 Hour (0.8-2.8) HEART Score - HEART Score Troponin: Troponin T 0.047 ng/mL (0.00-0.029) H D 03/16/20 22:25
[2020-04-02] MEDS: ACETAMINOPHEN 325 MG/10.15 ML ORAL LIQD UNIT DOSE FEEDTUBE PRN (21:11)
[2020-04-03] MEDS: VANCOMYCIN 250 MG/10 ML ORAL LIQD PO SCH (05:10)
[2020-04-03] MEDS: HYDROmorphone 1 MG/1 ML INJ IV PRN ×2 (05:49→11:07)
[2020-04-03 06:20] LABS: Basophils # (Auto) 0.1 K/mm3 (0.0-0.1); Basophils % (Auto) 0.7 % (0.0-1.8); Eosinophils # (Auto) 0.2 K/mm3 (0.0-0.4); Eosinophils % (Auto) 2.7 % (0.0-4.3); Hematocrit 23.5 % (35.5-45.6); Hemoglobin 7.7 gm/dl (11.8-15.2); Lymphocytes % (Auto) 26.8 % (13.4-35.0); Mean Corpuscular HGB Conc 33 % (32-34); Mean Corpuscular Volume 95 fl (84-94); Monocytes # (Auto) 0.5 K/mm3 (0.0-0.8); Monocytes % (Auto) 6.1 % (0.0-7.3); Platelet Count 62 K/mm3 (140-440); Red Blood Count 2.46 M/mm3 (3.65-5.03); Red Cell Distribution Width 17.6 % (13.2-15.2)
[2020-04-03 06:33] LABS: Calcium 7.9 mg/dL (8.4-10.2)
[2020-04-03] MEDS ORDERED: SODIUM CHLORIDE 0.9% 100 ML IV PRN (08:20)
--- NOTE | 2020-04-03 08:42 | Progress Note ---
Assessment and Plan Acute renal failure likely due to ischemic ATN Metabolic encphalopathy Metabolic acidosis Sepsis due to UTI UTI S/P Hypokalemia Anemia Plan: Cr and BUN are slowly rising, creatinine clearance was ~10, remains oliguric HD today for clearance and volume removal S/P removal of vasc cath and placement of right IJ Perm-cath placement on 03/29/20 Epogen with HD for anemia Renally dose medications Strict I&O monitoring Obtain daily weights Monitor renal function closely ID evaluated pt, on Abx Subjective Date of service: 04/03/20 Principal diagnosis: Acute hypoxemic respiratory failure; Septic shock; Ac. encephalopathy; ALEJANDRO Interval history: appears comfortable Objective - Vital Signs Vital signs: Vital Signs - 12hr 04/02/20 04/02/20 22:00 23:18 Temperature 99.1 F Pulse Rate 82 86 Respiratory 18 Rate Blood Pressure 135/59 O2 Sat by Pulse 95 95 Oximetry - Lab 04/03/20 05:07 04/03/20 05:07 Most recent lab results ABG pH 7.378 pH Units (7.350-7.450) 03/20/20 16:35 ABG pCO2 38.6 mm Hg 03/20/20 16:35 ABG pO2 63.9 mm Hg (80.0-90.0) L 03/20/20 16:35 ABG HCO3 22.2 mmol/L (20.0-26.0) 03/20/20 16:35 ABG O2 Saturation 90.9 % (95.0-99.0) L 03/20/20 16:35 Calcium 7.9 mg/dL (8.4-10.2) L 04/03/20 05:07 Phosphorus 7.20 mg/dL (2.5-4.5) H 03/29/20 06:26 Magnesium 1.80 mg/dL (1.7-2.3) 03/24/20 05:19 Urine Creatinine 82.8 mg/dL (0.1-20.0) H 03/31/20 12:24 Urine Sodium 53 mmol/L 03/17/20 Unknown Urine Total Protein 328 mg/dL (5-11.8) H 03/17/20 Unknown Medications & Allergies - Medications Allergies/Adverse Reactions: Allergies diclofenac [Diclofenac] Allergy (Verified 10/05/18 08:11) Rash Home Medications: Home Medications Medication Instructions Recorded Confirmed Last Taken Type Acetaminophen [Acetaminophen TAB] 650 mg PO Q4H PRN #1 tablet 02/28/17 03/19/20 Unknown Rx Aspirin [Aspirin BABY CHEW TAB] 81 mg PO DAILY #1 tab.chew 02/28/17 03/19/20 Unknown Rx Ferrous Sulfate [Feosol 325 MG tab] 325 mg PO QDAY #1 tablet 02/28/17 03/19/20 Unknown Rx Gabapentin 300 mg PO Q8HR #1 capsule 02/28/17 03/19/20 Unknown Rx Ondansetron [Zofran INJ] 4 mg IV Q8H PRN #1 vial 02/28/17 03/19/20 Unknown Rx amLODIPine 10 mg PO DAILY #1 tablet 02/28/17 03/19/20 Unknown Rx Ertapenem [INVanz] 1 gm IV QDAY vial 03/10/20 03/19/20 Unknown Rx Active Medications: Generic Name Dose Route Start Last Admin Trade Name Freq PRN Reason Stop Dose Admin Acetaminophen 650 mg 03/19/20 18:21 04/02/20 21:11 Tylenol FEEDTUBE 650 mg Q6H PRN Administration Pain, Mild (1-3) Albuterol 2.5 mg 03/16/20 17:00 Proventil IH Q3HRT PRN Shortness Of Breath Lipase/Protease/Amylase 1 each 03/17/20 17:12 Pancrescooby Granger 10,500 Unit FEEDTUBE PRN PRN For Clogged Feeding Tube Dextrose 50 ml 03/27/20 12:23 D50w (25gm) Syringe IV Q30MIN PRN Hypoglycemia Protocol Epoetin Colin 10,000 unit 03/24/20 17:00 Procrit IV DAYLIN IDRIS Famotidine 20 mg 03/28/20 10:00 04/02/20 11:04 Pepcid PO 20 mg DAILY IDRIS Administration Heparin Sodium (Porcine) 5,000 unit 03/28/20 10:00 04/02/20 21:12 Heparin SUB-Q 5,000 unit Q12HR IDRIS Administration Hydromorphone HCl 0.25 mg 03/16/20 17:30 04/03/20 05:49 Dilaudid IV 0.25 mg Q4H PRN Administration Pain, Moderate (4-6) Hydrophilic Ointment 1 applic 03/21/20 07:50 03/21/20 16:38 Aquaphor TP 1 applic Q12HR PRN Administration DRY SKIN Sodium Chloride 100 mls @ 999 mls/hr 04/03/20 08:20 Nacl 0.9% IV DAYLIN PRN Hypotension Insulin Glargine 6 units 03/27/20 22:00 Lantus SUB-Q QHS IDRIS Insulin Human Lispro 0 unit 03/27/20 22:00 04/02/20 21:23 Humalog SUB-Q 3 unit ACHS IDRIS Administration Protocol Midodrine 10 mg 03/20/20 12:00 04/02/20 17:07 Proamatine PO 10 mg TID@0800,1200,1600 IDRIS Administration Potassium Chloride 20 meq 03/31/20 13:00 04/02/20 21:11 K-Dur PO 20 meq BID IDRIS Administration Simple Syrup 15 ml 03/17/20 17:12 Simple Syrup FEEDTUBE PRN PRN Hypoglycemia Simple Syrup 30 ml 03/17/20 17:12 Simple Syrup FEEDTUBE PRN PRN Hypoglycemia Sodium Chloride 10 ml 03/16/20 22:00 04/02/20 21:12 Sodium Chloride Flush Syringe 10 Ml IV 10 ml BID IDRIS Administration Sodium Chloride 10 ml 03/16/20 17:00 Sodium Chloride Flush Syringe 10 Ml IV PRN PRN LINE FLUSH
[2020-04-03] MEDS: INSULIN LISPRO 100 UNIT/ML VIAL 3 mL SUB-Q SCH (10:45)
[2020-04-03] MEDS: FAMOTIDINE 20 MG TAB PO SCH (11:08)
[2020-04-03] MEDS: MIDODRINE 5 MG TAB PO SCH (11:08)
[2020-04-03] MEDS: POTASSIUM CHLORIDE ER 20 MEQ TAB PO SCH (11:09)
[2020-04-03] MEDS: HEPARIN 5,000 UNIT/1 ML VIAL SUB-Q SCH (11:09)
--- NOTE | 2020-04-03 12:37 | Discharge Summary ---
Providers - Providers Date of Admission: 03/16/20 16:49 Date of discharge: 04/03/20 Attending physician: KELLEN FRANCO 03/16/20 15:46 Consult to Physician [CONS] Urgent Comment: Consulting Provider: SAFIA BRENNAN Physician Instructions: Reason For Exam: hx of esbl, sepsis 03/16/20 16:15 Consult to Physician [CONS] Urgent Comment: Consulting Provider: ANYI CHASE Physician Instructions: Reason For Exam: acute on chronic renal failure 03/16/20 16:22 Consult to Physician [CONS] Urgent Comment: Consulting Provider: RAVEN LEWIS Physician Instructions: Reason For Exam: septic shock 03/16/20 21:15 PICC Line Placement [Consult to PICC Line RN] [CONS] Routine Reason For Exam: mcc access Type Line:: PICC 03/17/20 08:50 Consult to Wound/ET Nurse [CONS] Routine Reason For Exam: wound eval 03/17/20 17:12 Consult to Dietitian/Nutrition [CONS] Routine Physician Instructions: Reason For Exam: Reason for Consult: Write/Manage Tube Feeding Consult to Dietitian/Nutrition [CONS] Routine Physician Instructions: Assess nutrtn needs, initiate, modify, manage TF Reason For Exam: Reason for Consult: Write/Manage Tube Feeding Reason for Consult: Write/Manage Tube Feeding 03/19/20 09:05 Consult to Physician [CONS] Stat Comment: Consulting Provider: KENNETH MORGAN Physician Instructions: Reason For Exam: vascath placement 03/19/20 09:11 Consult to Wound/ET Nurse [CONS] Stat Reason For Exam: wound eval the back sacrum 03/19/20 09:38 Consult to Interventional Radiology [CONS] Routine Consulting Provider: KENNETH MORGAN Reason For Exam: vascath for Dialysis Notified:: Allsion 03/22/20 12:47 Consult to Physician [CONS] Routine Comment: Consulting Provider: KENNETH MORGAN Physician Instructions: Reason For Exam: Hemodialysis catheter replacement 03/22/20 14:57 Physical Therapy Evaluation and Treat [CONS] Routine Comment: Reason For Exam: Debility Speech Therapy Evaluation and Treat [CONS] Routine Reason For Exam: Evaluate for swallowing 03/25/20 14:35 Consult to Case Management [CONS] Routine Services Needed at Discharge: Other Notified:: complex case manager Comment:: Arrange outpatient dialysis placement to [facility] Additional Physician Instructions: [facility] under Dr Zambrano (vocational training director) 03/26/20 19:50 Consult to Physician [CONS] Routine Comment: Consulting Provider: SUHAS EGAN Physician Instructions: Reason For Exam: thrombocytopenia and leukocytosis Primary care physician: PUBLIC RELATIONS ANALYST Hospitalization Condition: Stable Pertinent studies: abdomen xry, CXR, abdominal US, renal US LUE venous doppler Hospital course: Patient is a 79-year-old male with a past medical history of encephalopathy, hypertension, generalized weakness, diabetes type 2, chronic lipidemia, DVT, respiratory failure with hypoxia, CVA, and CKD presents from shelter with c omplaint of sepsis with hypotension, alteration mental status. Off note he was treated previously here for ESBL E. coli bacteremia from UTI on 03/02/2020, admitted now due to 24 hours history of generalized weakness and confusion associated with subjective fever. Patient is unable to provide history, currently with lethargy on 3 pressors. Of note ESBL bacteremia was treated with ertapenem 1 g IV once a day for 14 days until 03/20/2020 via PICC line. On arrival, temperature 90, HR 62, RR 16, O2 sat 97, BP 76/33. Initial WBC 32.2. Hemoglobin 8.9. Creatinine 5.9. Urinalysis with 182 WBCs and large leukocyte esterase. 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 Patient was placed on abx therapy, admitted to hospital for further ma and evaluation. Daily course; 03/17: Patient also found to have acute kidney injury with acute tubular necrosis, toxic metabolic encephalopathy, metabolic acidosis and hypothermia. The patient is critically ill with a poor prognosis, sepsis protocol was initiated with an ICU admission. Patient was seen by collar stitcher pressors were increased with also bicarb drip started. Unfortunately bicarb drip had to be held due to PICC line compatibility. A new PICC line has been inserted this morning. Admitting physician did speak with the son and discussed prognosis. also called the son this morning who informs me that the brother who is physician is coming into town and will give us further recommendation on arrival. Patient has been started on a third pressor which is epinephrine at this time. To my examination awaiting nephrology evaluation. We will proceed with giving additional 2 L of fluids and also obtain a stat echocardiogram to see what patient's cardiac level is. Based on ejection fraction patient may benefit from dobutamine. Will place BiPAP on standby and if need be and family does not opposed to continued full code we will proceed with likely intubation so the patient can be adequately volume resuscitated. -Continue empiric antibiotic coverage. ID consultation. Critical care assistance and input noted. Fluid Resuscitation As Noted above Continue Diet. Change IV access for triple-lumen PICC line. Will follow cultures. We will also obtain wound care consultation. 03/18: Continue current management, may need dialysis but not a candidate for HD due to 3 Pressors. NO Diarrhea at this time. If not improving respiratory lopez may need Intubation. 03/19: Continue supportive care, mental status showing some improvement, still on BIPAP. BP improving will stop Epi and bring down to 2 pressors. Awaiting ECHO. IF continues to have worsening Renal function, May need transfer to [facility] if unable to perform HD. Patients son updated of current clinically status. 03/20: Right femoral catheter-vas cath Placed for HD. Hypokalemia to be corrected, will give Potassium 20meq. Continue IV abx, no growth so far noted, wean pressors as tolerated, may consider adding Midodrine. WBC trending down. Prior noted Ecoli Bactermia is not noted so far on the blood culture. Continue HD as tolerated, Sodium bicarb drip due to acidosis. 03/21. He has no complaints today. Patient continues to ask when he will be discharged. Labs showed persistent hypokalemia. Continue potassium replacement. Hemoglobin 6.0. Patient will get transfused 1 unit PRBC. 03/22. Hemoglobin stable today. Vascular surgery consulted for femoral line replacement 03/23. Patient seen in the BiPAP. Still has diarrhea and is on vancomycin. Afebrile overnight. Labs reviewed 03/24. Patient may need permacath placement on Friday. 24-hour urine collection ordered as per renal. Monitor rectal tube output closely. PT/OT 03/25. Patient seen and evaluated this morning. He has no complaints. Needs to have right femoral line removed permacath placed on Friday. Nephrology recommendations appreciated. 24-hour urine collection yet to commence as per RN. Steroids tapered off. 03/26. Patient seen and examined at bedside this morning. Has no complaints today. Plan is to have permacath placement tomorrow. He will need to have hemodialysis chair arrangement prior to discharge. supportive employment case manager on the case. Hematology consulted for thrombocytopenia and leukocytosis. Patient remains on argatroban but will be held temporarily for procedure. 03/27. 79-year-old male admitted 11 days ago with lethargy and altered mental status. Patient found to have septic shock, started on antibiotics and transferred to the ICU. While in the ICU, patient was on pressors. Patient subsequently had ALEJANDRO which failed to improve with conservative measures for now is on hemodialysis. Patient had a right femoral line placed for hemodialysis at that time. Stay in the ICU was complicated with pressure medication infection patient is currently on vancomycin plan ID is following. Currently improved while in the ICU and was referred to the medical floors. Patient passed a swallow evaluation will started on diet. Patient also have thrombocytopenia and heparin was discontinued. Fondaparinux not possible as patient has renal disease. Patient is currently argatroban. Hematology is consulted as patient has leukocytosis from admission. Need to rule out CML. Although ongoing issues at this time is active C. difficile infection for which the patient is on vancomycin and ID is following, patient is to have permacath placement for hemodialysis and will need hemodialysis chair to be arranged prior to discharge. Patient will be going to a facility when hemodialysis chair has been set up. P atient seen and examined at bedside this morning. Plan to have permacath placement, Called patient's son on the number provided but no answer so I left a voicemail. 03/28: PermCath placement scheduled for tomorrow, continue antibiotic, continue supportive care. Patient would need LTAC/SNF placement. 03/29: Status post PermCath placement today, complex case manager consulted for LTAC/SNF placement. Patient also need outpatient dialysis set up. 03/30: Continue ABX per ID, replete electrolytes. Potassium level 2.7 today. Dialysis as scheduled, pending placement and outpatient dialysis set up. 03/31: On hold HD per renal, cont to follow BMP and renal function, pending placement 04/01: monitor off HD, replete electrolytes as needed. placement pending 04/02: planned for HD tomorrow, pending placement 04/03: clinically stable, d/c to SNF with outpt Hd setup Discharge diagnosis and mx: --Septic shock Due to C. difficile infection, this has resolved --C. difficile infection treated with p.o. vancomycin 250 mg every 6 hours for 14 days ID recommendations appreciated --Anemia OF Chronic Disease Monitor hemoglobin Transfused as needed to hemoglobin > 7.0 --Electrolyte abnormalities-hypokalemia, hypomagnesemia-replete as needed --Recent ESBL E. coli bacteremia patient was discharged on ertapenem 1 g IV daily for 14 days end date supposed to be 03/20/2020 --Acute renal failure likely due to ischemic ATN Now placed on hemodialysis. Nephrology recommendations appreciated s/p Permacath placement on 03/29. Vascular following outpt HD arranged --Metabolic Acidosis Resolved. Discontinue sodium bicarb and monitor --Acute hypoxic Respiratory failure. Continue oxygen supplementation --Acute toxic metabolic encephalopathy Resolved --Ruled out COVID-19 --Hypothermia Resolved --Thrombocytopenia Possibly from ongoing infection vs HIT Trend platelets HIT antibody pending Argatroban for now Nephrology oncology on board --Leukocytosis, resolved Stress induced - steroids effect vs sepsis Monitor for now, hematology consulted --LUE swelling, venous doppler ordered --bedsore ulcers, POA wound care provided --PT/OT-back to facility --DVT prophylaxis - Argatroban for now -- Patient is full code Disposition: DC/[facility]-03 [facility] CERT Time spent for discharge: 34 minutes Core Measure Documentation - Palliative Care Palliative Care/ Comfort Measures: Not Applicable - Core Measures Any of the following diagnoses?: none Exam - Physical Exam Narrative exam: GENERAL: well-developed obese -Mong[place]ian male lying on bed appeared to be in no discomfort. HEENT: Normocephalic. Atraumatic. No conjunctival congestion or icterus. Patient has moist mucous membranes. NECK: Supple. Trachea midline. CHEST/LUNGS: Clear to auscultated bilaterally, breathing nonlabored. No wheezes crackles or rhonchi. HEART/CARDIOVASCULAR: Regular in rate and rhythm. S1 and S2 positive. ABDOMEN: Abdomen is soft, nontender. Patient has normal bowel sounds. MUSCULOSKELETAL: Chronic venous changes bilateral lower ext. LUE welling NEUROLOGIC EXAM: Awake and alert SKIN: Multiple exfoliative rash, chronic skin color discoloration Psych: Cooperative. - Constitutional Vitals: Temp Pulse Resp BP Pulse Ox 97.8 F 86 18 148/81 100 04/03/20 11:33 04/03/20 12:30 04/03/20 11:33 04/03/20 12:30 04/03/20 08:57 Plan Activity: fall precautions Weight Bearing Status: Non-Weight Bearing Diet: renal Wound: per wound nurse instructions Special Instructions: restrict fluid intake to (1.2l per day) Follow up with: PRIMARY CARE, [Primary Care Provider] - 3-5 Days
[2020-04-03 16:13] VITALS: BP 146/70
--- NOTE | 2020-04-03 17:09 | Vascular Lab Report ---
DUPLEX DOPPLER UPPER EXTREMITY VENOUS, LEFT INDICATION / CLINICAL INFORMATION: swelling. TECHNIQUE: Duplex doppler imaging was performed through the veins of the left upper extremity using venous compr ession and other maneuvers. COMPARISON: None available. FINDINGS: LEFT INTERNAL JUGULAR VEIN: Negative. LEFT SUBCLAVIAN VEIN: Negative. LEFT AXILLARY VEIN: Negative. LEFT BRACHIAL VEIN: Negative. LEFT FOREARM VEINS: Negative. LEFT BASILIC VEIN (SUPERFICIAL): Negative. ADDITIONAL FINDINGS: None. IMPRESSION: 1. No definite sonographic evidence for DVT. Technically limited exam due to poor patient positionin g and body habitus Signer Name: Britton Day MD FACR Signed: 04/03/2020 5:05 PM Workstation Name: [id number]
== END 2020-04-03 18:30 | DRG 871 ==
LOC: ED 14:15 → CC1 16:49 → IMCU 03-22 18:11 → 4A 03-23 20:54
PROVIDERS: ADMIT Internal Medicine; ATTEND Internal Medicine
PROC: 4A033R1 Measurement of Arterial Saturation, Peripheral, Percutaneous Approach (ICD-10-PCS; 2020-03-17)
PROC: 5A09357 Assistance with Respiratory Ventilation, Less than 24 Consecutive Hours, Continuous Positive Airway Pressure (ICD-10-PCS; 2020-03-17)
PROC: 02HV33Z Insertion of Infusion Device into Superior Vena Cava, Percutaneous Approach (ICD-10-PCS; 2020-03-17)
PROC: B548ZZA Ultrasonography of Superior Vena Cava, Guidance (ICD-10-PCS; 2020-03-17)
PROC: 5A09357 Assistance with Respiratory Ventilation, Less than 24 Consecutive Hours, Continuous Positive Airway Pressure (ICD-10-PCS; 2020-03-18)
PROC: 06HY33Z Insertion of Infusion Device into Lower Vein, Percutaneous Approach (ICD-10-PCS; principal; 2020-03-19)
PROC: B54BZZA Ultrasonography of Right Lower Extremity Veins, Guidance (ICD-10-PCS; 2020-03-19)
PROC: 5A09357 Assistance with Respiratory Ventilation, Less than 24 Consecutive Hours, Continuous Positive Airway Pressure (ICD-10-PCS; 2020-03-19)
PROC: 5A1D70Z Performance of Urinary Filtration, Intermittent, Less than 6 Hours Per Day (ICD-10-PCS; 2020-03-20)
PROC: 5A09357 Assistance with Respiratory Ventilation, Less than 24 Consecutive Hours, Continuous Positive Airway Pressure (ICD-10-PCS; 2020-03-20)
PROC: 30233N1 Transfusion of Nonautologous Red Blood Cells into Peripheral Vein, Percutaneous Approach (ICD-10-PCS; 2020-03-21)
PROC: 5A1D70Z Performance of Urinary Filtration, Intermittent, Less than 6 Hours Per Day (ICD-10-PCS; 2020-03-21)
PROC: 5A09357 Assistance with Respiratory Ventilation, Less than 24 Consecutive Hours, Continuous Positive Airway Pressure (ICD-10-PCS; 2020-03-21)
PROC: 5A09357 Assistance with Respiratory Ventilation, Less than 24 Consecutive Hours, Continuous Positive Airway Pressure (ICD-10-PCS; 2020-03-22)
PROC: 5A09357 Assistance with Respiratory Ventilation, Less than 24 Consecutive Hours, Continuous Positive Airway Pressure (ICD-10-PCS; 2020-03-23)
PROC: 5A1D70Z Performance of Urinary Filtration, Intermittent, Less than 6 Hours Per Day (ICD-10-PCS; 2020-03-24)
PROC: 5A09357 Assistance with Respiratory Ventilation, Less than 24 Consecutive Hours, Continuous Positive Airway Pressure (ICD-10-PCS; 2020-03-24)
PROC: 5A1D70Z Performance of Urinary Filtration, Intermittent, Less than 6 Hours Per Day (ICD-10-PCS; 2020-03-27)
PROC: 0JH63XZ Insertion of Tunneled Vascular Access Device into Chest Subcutaneous Tissue and Fascia, Percutaneous Approach (ICD-10-PCS; 2020-03-29)
PROC: 02H633Z Insertion of Infusion Device into Right Atrium, Percutaneous Approach (ICD-10-PCS; 2020-03-29)
PROC: B548ZZA Ultrasonography of Superior Vena Cava, Guidance (ICD-10-PCS; 2020-03-29)
PROC: B5181ZA Fluoroscopy of Superior Vena Cava using Low Osmolar Contrast, Guidance (ICD-10-PCS; 2020-03-29)
PROC: 5A1D70Z Performance of Urinary Filtration, Intermittent, Less than 6 Hours Per Day (ICD-10-PCS; 2020-03-29)
PROC: 5A1D70Z Performance of Urinary Filtration, Intermittent, Less than 6 Hours Per Day (ICD-10-PCS; 2020-04-03)
DX: A41.9 Sepsis, unspecified organism (principal); N17.0 Acute kidney failure with tubular necrosis; G92 Toxic encephalopathy; J69.0 Pneumonitis due to inhalation of food and vomit; R65.21 Severe sepsis with septic shock; J96.01 Acute respiratory failure with hypoxia; E87.2 Acidosis; I12.9 Hypertensive chronic kidney disease with stage 1 through stage 4 chronic kidney disease, or unspecified chronic kidney disease; E11.22 Type 2 diabetes mellitus with diabetic chronic kidney disease; R60.0 Localized edema; N18.9 Chronic kidney disease, unspecified; L89.159 Pressure ulcer of sacral region, unspecified stage; E87.6 Hypokalemia; E83.42 Hypomagnesemia; Z20.828 Contact with and (suspected) exposure to other viral communicable diseases; D69.6 Thrombocytopenia, unspecified; M19.90 Unspecified osteoarthritis, unspecified site; Z79.82 Long term (current) use of aspirin; Z86.73 Personal history of transient ischemic attack (TIA), and cerebral infarction without residual deficits; Z79.899 Other long term (current) drug therapy; Z82.49 Family history of ischemic heart disease and other diseases of the circulatory system; Z83.3 Family history of diabetes mellitus; Z86.718 Personal history of other venous thrombosis and embolism
CPT/HCPCS: 36415; 36430; 36558; 36600; 71045; 74018; 76604; 76770; 76937; 77001; 80048; 80053; 80061; 80074; 80202; 81001; 82140; 82550; 82570; 82803; 82805; 82962; 83615; 83735; 84100; 84145; 84156; 84300; 84484; 85007; 85025; 85027; 85610; 85730; 86022; 86140; 86850; 86900; 86901; 86920; 87040; 87045; 87086; 87493; 93005; 93306; 94640; 94660; 94760; G0378; C1750; J0171; J0583; J0883; J1170; J1335; J1644; J1815; J1956; J2185; J2543; J2920; J3370; J3475; J3480; J7030; J7040; J7050; J7070; P9016; P9045; P9047; U0003